=== PATIENT | male | born 1945 ===

== ENCOUNTER 2024-06-26 20:04 | Outpatient (BNV) | payer MEDICARE, OTHER, SELFPAY | END 2024-07-03 09:20 | PROVIDERS: Admitting Provider Psychiatry & Neurology Psychiatry; PCP Internal Medicine Geriatric Medicine; Visit Provider Radiology Diagnostic Radiology | DX: R07.81 Pleurodynia (principal) | CPT/HCPCS: 71100 ==

== ENCOUNTER 2024-06-26 20:04 | Inpatient (IN) | payer MEDICARE, OTHER, SELFPAY ==
--- NOTE | ~2024-06-26 | XR_ITS ---
EXAMINATION: XR RIBS 2 VIEWS LEFT HISTORY: ? rib pain L side COMPARISON: There are no prior studies for comparison. FINDINGS: Three views of the left ribs are submitted. Osseous mineralization is normal. No fracture is identified. XR/XR ribs LT 2V IMPRESSION: No evidence of fracture of the left ribs. Electronically signed by: Dionicio Pacheco MD 07/03/2024 10:25 AM EDT
--- NOTE | ~2024-06-26 | XR_ITS ---
CLINICAL HISTORY: LUQ pain Single view of the abdomen. COMPARISON: None FINDINGS: Normal bowel distention. Pelvic phleboliths present. No pneumoperitoneum identified. Gpshmrbg-lx-ebjat colonic stool burden within the transverse and descending colon. Marked apex right angulation of the upper lumbar spine with grade 2/3 rightward subluxation and marked compression of the L2 vertebral body. No acute fracture identified. Abdominal mesh wall clips present. IMPRESSION: 1. Nonspecific nonobstructive bowel gas pattern. 2. Yilcjplb-mx-pdmxl amount of stool present within the transverse and descending colon. 3. Marked apex right angulation of the upper lumbar spine with chronic appearing compression fracture of the L2 vertebral body. Recommend comparison with prior imaging and clinical history. This document has been electronically signed by: Cl Tomlin MD on 06/27/2024 16:08:22
--- NOTE | ~2024-06-26 | XR_ITS ---
EXAMINATION: XR SHOULDER 2 OR MORE VIEWS LEFT HISTORY: c/o l shoulder pain COMPARISON: There are no prior studies available for comparison. FINDINGS: Four views of the left shoulder are submitted. The bones are osteopenic. There is no fracture or dislocation. There is severe osteoarthritis of the glenohumeral joint with joint space narrowing. The humeral head is high riding suggestive of rotator cuff arthropathy. The AC joint is maintained. The soft tissues are unremarkable. XR/XR shoulder LT min 2V IMPRESSION: Osteopenia. Severe osteoarthritis of the glenohumeral joint with findings suggestive of rotator cuff arthropathy. Electronically signed by: Dionicio Pacheco MD 07/03/2024 11:23 AM EDT
--- OUTSIDE RECORDS SUMMARY | 2024-06-26 20:12 | XMS_ITS | Encounter Summary ---
Author Organization [facility] Address [address] [place] [address] Care Team Providers Care Data Analyst Etl Developer Name Role Phone Oziel Carrington MD Primary Care Provider [phone] Reason for Visit * Reason Comments Psychiatric Evaluation * Auth/Cert (Routine) Specialty Diagnoses / Procedures Referred By Wesley nunez Referred To Contact Diagnoses ++ Procedures ADMIT TO OBSERVATION Referral ID Status Reason Start Date Expiration Date Visits Re quested Visits Authorized [id number] 1 1 Encounter Details Date Type Department Care Team (Late st Contact Info) Description 06/24/2024 10:53 PM EDT - 06/26/2024 6:28 PM EDT Emergency [facility] [address] [place] [phone] Sakina Horne DO [address] [place] [id number] Marco Dunham MD [address] [place] [id number] Shai Pearce MD [address] [place] [id number] Jermaine Goodwin MD [address] [place] [phone] [place] [address] Kylie Johnston MD [address] [place] [address] Discharge Disposition: Another Health Care Institution Not Defined Social History Tobacco Use Types Packs/Day Years Used Date Smoking Tobacco: Never Passive Smoke Exposure: Never Smokeless Tobacco: Never Alcohol Use Standard Drinks/Week Comments Never 0 (1 standard drink = 0.6 oz pur e alcohol) [facility] Utilities Answer Date Recorded In the past 12 months has th e electric, gas, oil, or water company threatened to shut off services in your home? No 04/13/2024 Humiliation, Afraid, Rape, and Kick questionnair e Answer Date Recorded Within the last year, have y ou been afraid of your partner or ex-partner? No 04/13/2024 Emotionally Abused Not on file 04/13/2024 Physically Abused Not on file 04/13/2024 Sexually Abused Not on file 04/13/2024 Overall Financial Resource Strain (CARDIA) Answe r Date Recorded How hard is it for you to pa y for the very basics like food, housing, medical care, and heating? Not hard at all 04/13/2024 Hunger Vital Sign Answer Date Recorded Within the past 12 months, y ou worried that your food would run out before you got the money to buy more. Never true 04/13/20 24 Ran Out of Food in the Last Year Not on file 04/13/2024 PRAPARE - Transportation Answer Date Re corded In the past 12 months, has l ack of transportation kept you from medical appointments or from getting medications? No 03/17 In the past 12 months, has l ack of transportation kept you from meetings, work, or from getting things needed for daily living? No 04/13/2024 Housing Stability Vital Sign Answer Chandana e Recorded In the last 12 months, was t here a time when you were not able to pay the mortgage or rent on time? No 04/13/2024 Number of Times Moved in the Last Year Not on fi le 04/13/2024 Homeless in the Last Year Not on file 2023 Depression Answer Date Recorded Feeling Down, Depressed, or Hopeless 1 03/06/2024 PHQ-9 Total Score 5 03/06/2024 [place] Scale Score: Not on file Sex and Gender Information Value Date Recorded Sex Assigned at Male 07/18/2021 5:48 PM EDT Legal Sex Male 3:32 PM EST Gender Identity Male 07/18/2021 5:48 PM EDT Sexual Orientation Straight 05/21/2024 7: 28 AM EST Occupation Industry Job Start Date Job End Date Working part-time Not on file Not on file Not on jocy e documented as of this encounter Last Filed Vital Signs Vital Sign Reading Time Taken Comments Blood Pressure 111/58 06/26/2024 1:00 PM EDT Pulse 52 06/26/2024 1:00 PM EDT Temperature 36.7 ??C (98 ??F) 06/26/2024 12:42 PM EDT Respiratory Rate 17 06/26/2024 1:00 PM EDT Oxygen Saturation 96% 06/26/2024 1:00 PM EDT Inhaled Oxygen Concentration - - Weight - - Height - - Body Mass Index - - documented in this encounter Functional Status * Because of a physical, mental, or emotional condition, does this person have difficulty doing errands alone such as visiting a doctor's office or shopping? Answer Date of Assessment Author No 02/20/2024 2:41 PM EST documented as of this encounter Medications at Time of Discharge acetaminophen (TYLENOL) 500 mg tablet Take 2 tablets (1,000 mg total) by mouth 3 (three) times a day. 180 tablet 06/11/2024 baclofen 5 mg tablet Take 5 mg by mouth 3 (three) times a day. 90 tablet 06/11/2024 clonazePAM (KlonoPIN) 1 mg tablet Take 1 tablet at bedtime. May have additional half tablet if unable to fall asleep. 45 tablet 06/11/2024 diclofenac sodium (Voltaren) 1 % gel Apply 4 g topically 4 (four) times a day as needed (left shoulder pain). 50 g 06/11/2024 5 lidocaine (LIDODERM) 4 % patch Apply 1 patch topically daily as needed for mild pain (1-3) or moderate pain (4-6). Remove & discard patch within 12 hours or as directed by MD. 30 patch 06/11/2024 pantoprazole (PROTONIX) 40 mg EC tablet Take 1 tablet (40 mg total) by mouth daily. 30 tablet 06/11/2024 5 QUEtiapine (SEROquel) 300 mg tablet Take 1 tablet (300 mg total) by mouth nightly. 30 tablet 06/11/2024 QUEtiapine (SEROquel) 50 mg tablet Take 1 tablet qam. May take half tablet up to 3 times per day as needed for intrusive thoughts 60 tablet 06/11/2024 senna (SENOKOT) 8.6 mg tablet Take 2 tablets (17.2 mg total) by mouth nightly. Hold if > 1 BM/day 60 tablet 06/11/2024 sodium chloride 1,000 mg tablet Take 1 tablet (1 g total) by mouth 3 (three) times a day with meals. 90 tablet 06/11/2024 5 tranylcypromine (PARNATE) 10 mg tablet Take 3 tablets (30 mg total) by mouth 3 (three) times a day. 270 tablet 06/11/2024 5 documented as of this encounter Progress Notes * Nikia Chi - 06/26/2024 3:38 PM EDT Patient: Cody Funez Accepting Facility: [place] Accepting Facility Address: [address] [place] [address] Accepting MD: Dr Dick Melgoza Arrival Time: JULIAN Nurse to Nurse Report: they are calling over for N2N Other Labs or Needs: N/A HCP/Guardian (if applicable): N/A Reason for Section 12: SI Information Given To: Via secure chat * Adiel Whittaker - 06/26/2024 8:44 AM EDT Patient referral has been uploaded to [facility] * Tara Beckham - 06/25/2024 1:45 PM EDT Clinician filled out and faxed pt.'s inpatient boarding notification form for [facility] * Adiel Whittaker - 06/25/2024 12:42 PM EDT Patient has been faxed to the following facilities for review today[facility] * Jen Mitchell - 06/25/2024 12:04 PM EDT Behavioral Health Crisis Consult - Follow Up Patient: Cody Funez : 1945 Admit Date: 06/24/2024 Date of Consult: 06/25/2024 Time of Consult: 12:04 PM CC: Chief Complaint Patient presents with Psychiatric Evaluation Chart Reviewed, case discussed with team and staff. Patient reports feeling mentally numb today. Updates: Psych consult outcome/psych medications: n/a Medical/Psychiatric/Substance/Social/Family History: Histories from previous consult note of 06/24 remain unchanged, except as note in HPI. Current Medications: baclofen (LIORESAL) tablet 5 mg, 5 mg, oral, TID clonazePAM (KlonoPIN) tablet 1 mg, 1 mg, oral, Nightly NON FORMULARY, , oral, TID pantoprazole (PROTONIX) EC tablet 40 mg, 40 mg, oral, Every morning before breakfast QUEtiapine (SEROquel) tablet 300 mg, 300 mg, oral, Nightly QUEtiapine (SEROquel) tablet 50 mg, 50 mg, oral, q AM Current PRN: acetaminophen (TYLENOL) tablet 975 mg diclofenac sodium (Voltaren) 1 % gel 4 g Allergies: Tyramine, Gabapentin, and Tyramine hcl Physical Exam: Patient Vitals for the past 24 hrs: BP Temp Temp src Pulse Resp SpO2 06/25/24 1136 -- -- -- (!) 47 16 95 % 06/25/24 0918 132/69 36.6 ??C (97.9 ??F) Temporal (!) 50 16 95 % 06/25/24 0630 121/72 -- -- (!) 41 (!) 14 95 % 06/25/24 0530 (!) 148/80 -- -- (!) 42 16 97 % 06/25/24 0500 (!) 146/69 -- -- (!) 40 (!) 12 97 % 06/25/24 0430 138/69 -- -- (!) 40 (!) 13 98 % 06/25/24 0330 128/62 -- -- (!) 45 (!) 12 98 % 06/25/24 0300 117/68 -- -- (!) 44 (!) 13 97 % 06/25/24 0230 136/67 -- -- (!) 44 (!) 12 97 % 06/25/24 0200 (!) 161/80 -- -- (!) 47 20 99 % 06/25/24 0000 120/69 -- -- (!) 51 (!) 14 98 % 06/24/24 2330 114/74 -- -- (!) 50 (!) 10 97 % 06/24/24 2246 94/56 36.3 ??C (97.3 ??F) Temporal 65 16 94 % Mental Status Exam: Appearance: stated age and disheveled Behavior: cooperative and calm Speech: regular rate, regular rhythm, and regular volume Language: intact Mood: depressed Affect: flat Thought Process: organized and goal-directed Thought Content: suicidal ideation Hallucinations: absent Attention: intact Concentration: intact Orientation: time, date, person, place, city, president Memory: intact Fund of Knowledge: intact Insight: intact Judgment: impaired Labs, Imaging & Other Studies: Laboratory: Recent lab results have been reviewed and are notable for Results for orders placed or performed during the hospital encounter of 06/24/24 CBC auto differential Result Value Ref Range WBC 3.13 (L) 4.00 to 11.00 x 10*3u/L 10*3/uL nRBC 0 0 - 0 /100 WBCs RBC 3.16 (L) 4.30 to 5.80 x 10*6/uL 10*6/uL HGB 10.1 (L) 13.5 to 17.5 g/dL g/dL HCT 32.2 (L) 41.0% to 53.0% % MCV 101.9 (H) 80.0 to 94.0 fL fL MCH 32.0 26.0 - 33.0 pg MCHC 31.4 31.0 to 37.0 g/dL g/dL PLT 147 (L) 150 to 400 x 10*3u/l 10*3u/L RDW-CV 12.9 11.5 - 14.5 % Segmented % 57.6 30.0 - 85.0 % ABS Neutrophil 1.80 1.20 - 9.30 10*3/uL Lymphocytes % 18.2 15.0 - 50.0 % ABS Lymphocyte 0.57 (L) 0.60 - 5.50 10*3u/L Monocytes % 19.8 (H) 2.0 - 12.0 % ABS Monocytes 0.62 0.08 to 1.30 x 10*3u/L 10*3/uL Eosinophils % 3.5 0.0 - 5.0 % ABS Eosinophils 0.11 0.00 to 0.68 x 10*3u/L 10*3/uL Basophil % 0.6 0.0 - 2.0 % ABS Basophils 0.02 0.00 - 0.20 10*3/uL IMM GRAN 0.3 0.0 - 1.0 % ABS IMM GRAN 0.01 0.00 - 0.10 10*3/uL Comprehensive metabolic panel Result Value Ref Range Sodium 142 137 - 145 mmol/L Potassium 5.1 3.5 - 5.1 mmol/L CHLORIDE 109 (H) 98.00 - 107.00 mmol/L CARBON DIOXIDE, TOTAL 28.0 22.0 - 30.0 mmol/L ANION GAP 5.0 (L) 6 - 14 GLUCOSE 122 (H) 70 - 99 mg/dL CALCIUM 8.7 8.3 - 10.3 mg/dL CREATININE 1.3 0.7 - 1.3 mg/dL ALBUMIN 3.6 3.5 - 5.0 g/dL Bilirubin Total 0.4 0.2 - 1.3 mg/dL BILIRUBIN DIRECT 0.2 0.0 - 0.4 mg/dL ALKALINE PHOSPHATASE 82 38 - 126 U/L AST (SGOT) 40 15 - 46 U/L ALT 24 <50 U/L Protein, Total 5.9 (L) 6.3 - 8.2 g/dL BUN 51 (H) 9 - 20 mg/dL eGFRcr 56 URINALYSIS WITH MICROSCOPIC WITH REFLEX TO URINE CULTURE Result Value Ref Range Color Light Yellow TURBIDITY Clear Clear SG 1.026 1.002 - 1.030 pH, Urine 5.5 5.0 - 8.0 Albumin Negative Negative Glucose Negative Negative Ketones Negative Negative Bile Negative Negative Blood Negative Negative WBC esterase Negative Negative Nitrite Negative Negative WBC 0-5 0 - 5 /HPF RBC 0-2 0 - 5 /HPF EPITH CELLS 0-5 0 - 5 /HPF WBC Clumps None Seen None Seen /HPF Mucous 1+ (A) None Seen /LPF URINE SEDIMENTATION REQUIRED? Yes Toxicology screen, serum Result Value Ref Range Ethanol Lvl <10 mg/dL Salicylate Lvl <1 <=35 mg/dL ACETAMINOPHEN 19 <=30.0 ug/mL Toxicology screen, urine Result Value Ref Range Amphetamine Screen, Ur Negative Negative Cocaine Screen, Ur Negative Negative Opiate, Ur Negative Negative Barbiturate Screen, Ur Negative Negative Benzodiazepines Screen, Ur Negative Negative Methadone Screen, Ur Negative Negative Cannabinoid Screen Ur Negative Negative PCP Screen, Ur Negative Negative Oxycodone Screen, Ur Negative Negative Ecstasy Screen Ur Negative Negative Fentanyl Screen, Ur Negative Negative Magnesium Result Value Ref Range Magnesium Blood 2.2 1.6 - 2.3 mg/dL Phosphorus Result Value Ref Range PHOSPHATE 3.2 2.5 - 4.5 mg/dL Troponin I Result Value Ref Range Troponin I <0.012 <0.034 ng/mL ng/mL *Note: Due to a large number of results and/or encounters for the requested time period, some results have not been displayed. A complete set of results can be found in Results Review. EKG: No studies were reviewed. C-SSRS Daily Screener 2) Current Suicidal Thoughts: Yes 3) Have you been thinking about how you might do this?: Yes 4) Have you had these thoughts and had some intention of acting on them?: Yes 5) Have you started to work out OR worked out the details of how to kill yourself? Do you intend tocarry out this plan?: No 6a.) Have you ever done anything, started to do anything, or prepared to do anything to end your life?: Yes 6b.) If 'Yes', was it within the past 3 months?: No C-SSRS Risk Level: High Discharge Screener 1) Wish to be : Yes 2) Current Suicidal Thoughts:: Yes 3) Have you been thinking about how you might do this?: Yes 4) Have you had these thoughts and had some intention of acting on them?: Yes 5) Have you started to work out OR worked out the details of how to kill yourself? Do you intend tocarry out this plan?: No 6a.) While you were in the hospital, have you done anything, started to do anything, or prepared todo anything to end your life?: No C-SSRS Risk Level: High Assessment: Patient is a 78 y.o. male with past medical and psychiatric history as above. During eval, the patient presented as AOx4, cooperative, and depressed. His speech was WNL, goal-directed, and organized.His affect was flat. He endorsed SI with the plan to hang himself with a belt. The patient stated his belief that a higher power wants him to end his life due to choices he made in a past life. He denied HI. When asked about psychosis, he stated that he is experiencing thoughts rather than voices . He presented as help-seeking and advocating for admission to [facility] or [facility]. This senior grant writer let him know that the bed search is based on availability. This senior grant writer also discussed the patient's willingness to transition to an assisted living facility, as he seems to present better in environments with more people. He stated that he is interested in making this shift, but has avoided it in the past due to concerns about the financial burden of [facility]. He is open to discussing this topic with providers. Recommendations: This patient continues to meet Section 12 criteria due to his reported SI with a plan. He will remain boarding in the emergency department while awaiting psychiatric placement. Requested LOC: Barriers to placement/Specialty Placement Required: nikolai-psych Disposition Recommendation: Inpatient Level of Care Behavioral Health Diagnosis: F25 Schizoaffective Disorder Duration: Time Spent (min): 45 Case d/w: Shai Pearce MD Signed by: Jen Mitchell MA * Braxton Gomez [facility] - 06/25/2024 1:13 AM EDT Behavioral Health Crisis Consult - Initial Assessment Patient: Cody Funez : 1945 Admit Date: 06/24/2024 Date of Consult: 06/25/2024 Time of Consult: 1:13 AM Consult Requested by: Marco Dunham MD Reason for Consult: Chief Complaint Patient presents with Psychiatric Evaluation History of Present Illness: Patient is a 78 y.o. male with past medical and psychiatric history as listed who presented to the hospital on 06/24/2024, for Psychiatric Evaluation. Behavioral Health is consulted for SI. Medical History: has a past medical history of Adult failure to thrive (12/14/2020), Basal cell carcinoma, Calcium oxalate kidney stones (03/22/2022), Closed fracture of multiple ribs of right side with routine healing (06/17/2019), Closed fracture of occipital bone ([facility]/HCC) (02/02/2021), COVID-19 (07/03/2022), Elevated lipase (07/18/2023), Gastrointestinal hemorrhage with melena (12/14/2023), Hematoma (07/08/2020), Hypercapnic respiratory failure (CMS/HCC) (05/20/2022), Hypotension due to hypovolemia (05/29/2022), Hypothermia (05/29/2022), Inguinal hernia without obstruction or gangrene (01/14/2023), Intestinal infection due to Clostridium difficile (01/07/2007), Meningioma ([facility]), Multiple falls (05/04/2020), 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 has a past surgical history that includes Hernia repair and facet injection / mbb injection - lumbar/sacral 1st level (Left, 10/25/2022). Psychiatric History: Patient is a 78 year old male who was transported to [facility] ED by a friend. He lives alone and has a past psychiatric history of schizoaffective disorder. His friend brought him in. He had recently beendischarged from an inpatient unit at the end of May 2024. Patients friend was at dinner and hestarted to endorse intrusive thoughts of wanting to harm himself and others. Patient requested to be brought back to the hospital. His friend reported patient has not been sleeping well at night. HisBAL was 0. His tox screen is pending. He has been medically cleared by the attending physician. Prior to meeting with patient, I reviewed his electronic medical records. He had an admission to [facility] on 04/30/24 and discharged on 06/11/24. He had been there was well in February of 2024. During themost recent admission he reported that he was having numerous negative thoughts that were intrusive and terrifying because he was in a past life in [place] and had the opportunity to save people and did not . He then has thoughts that turn into voices telling him to kill himself or end up killing other people. He reported chronic AH and SI at baseline and his symptoms become exacerbated by physical pain. He did have a period of unresponsiveness, hypotension, and hypoxemia which was attributed to the doses of his psychiatric medications. He is followed by Dr. Rai Cm for Psychiatry at [facility]. He has a therapist named Jake Armijo. He has had inpatient admissions to [place] [address] in 2011, 2020, February 2024, and May 2024. He had a remote suicide attempt decades ago when he cut his toe with a razor blade but knew it would not cause any significant damage. He was started on Abilify during last admission but it caused insomnia. He then was re-staretd on Quetiapine which caused some confusion but his symptoms improved with a more gradual titration. I met with patient via video conference. He was able to confirm his identity by stating his name and . However, he only minimally participated in the evaluation. He was lethargic and at times would fall asleep. I would call his name and he would briefly wake up to answer a question and then fallasleep. When he did appear awake and respond his responses were not spontanious. He was able to sayhe has been having thoughts of killing himself. He has been having these thoughts off and on. He thinks about hanging himself. He then fell back asleep and was not able to fully engage I called patients [facility] Braxton [phone]. He reported that he believed patient was doing well since his discharge from [facility]. However, his apartment is not the cleanest lately. He stated that he went over to patients house to have dinner. He seemed ok. Around 9pm he was getting ready to leave andpatient said I don't know what I am going to do . He stated that he asked patient to elaborate andhe stated that he was having thoughts of killing himself. Patient had encouraged him to take his evening medications. Patient was hesitant to do so but ultimately agreed. He then stated he preferred to go to the hospital. He stated that when they arrived he dropped him off and was going to park. Hestated that patient was walking to the ED and almost stopped and fell asleep standing up. They got him into the hospital and initially he was able to be aroused but still lethargic. Patient did have COVID while he was hospitalized last time. I did tell Braxton that I observed patient to cough a fewtimes when I was attempting to meet with him. He shared that patient also had a fall recently. He reports he is not sure if he has been taking his medications consistently or not. He noted that patient has presented as confused lately regarding his medications. He states that over the weekend he helped him prepare his meds in a pill box. It seemed like he has been taking his meds this week. Before that he was not sure if he was taking more then he should have or less because he seemed confused. I did review the case with the attending physician. Patients heart rate is in the 40's but has normal blood pressures. They are going to continue to monitor him medically in the ED. Home Medications: (Not in a hospital admission) Current Medications: baclofen (LIORESAL) tablet 5 mg, 5 mg, oral, TID clonazePAM (KlonoPIN) tablet 1 mg, 1 mg, oral, Nightly NON FORMULARY, , oral, TID pantoprazole (PROTONIX) EC tablet 40 mg, 40 mg, oral, Every morning before breakfast QUEtiapine (SEROquel) tablet 300 mg, 300 mg, oral, Nightly QUEtiapine (SEROquel) tablet 50 mg, 50 mg, oral, q AM Current PRN: acetaminophen (TYLENOL) tablet 975 mg diclofenac sodium (Voltaren) 1 % gel 4 g Allergies: Tyramine, Gabapentin, and Tyramine hcl Substance Use History: Substance and Sexual Activity Alcohol Use Never Social History Substance and Sexual Activity Drug Use Never Tobacco: reports that he has never smoked. He has never been exposed to tobacco smoke. He has never used smokeless tobacco. Other: reports no history of drug use. Prescription Medications: Seroquel Substances: Unable to fully assess. There was nothing I could see in his record that noted he has a significantsubstance abuse history. Social History: unable to fully assess. He does live by himself. Social History Socioeconomic History Marital status: Single Number of children: 0 Years of education: College graduate Occupational History Occupation: Working part-time , , History: Personal History: reports that he is not currently sexually active. Family History: Family History Problem Relation Name Age of Onset Heart disease Mother Breast cancer Mother Depression Mother Heart disease Father Prostate cancer Father Stroke Father Hypertension Father Intellectual Disability Other sibling Physical Exam: Patient Vitals for the past 24 hrs: BP Temp Temp src Pulse Resp SpO2 06/25/24 0000 120/69 -- -- (!) 51 (!) 14 98 % 06/24/24 2330 114/74 -- -- (!) 50 (!) 10 97 % 06/24/24 2246 94/56 36.3 ??C (97.3 ??F) Temporal 65 16 94 % Mental Status Exam: Appearance: stated age and unkempt Behavior: lethargic Speech: soft, mumbled at times. Difficult to understand at times. Language: fluent Mood: depressed Affect: blunted Thought Process: unable to fully assess Thought Content: suicidal ideation Hallucinations: unable to fully assess Attention: difficulty staying awake Concentration: impaired Orientation: unable to fully assess Memory: unable to fully assess Fund of Knowledge: unable to fully assess Insight: unable to fully assess Judgment: unable to fully assess Labs, Imaging & Other Studies: Laboratory: Recent lab results have been reviewed Results for orders placed or performed during the hospital encounter of 06/24/24 CBC auto differential Result Value Ref Range WBC 3.13 (L) 4.00 to 11.00 x 10*3u/L 10*3/uL nRBC 0 0 - 0 /100 WBCs RBC 3.16 (L) 4.30 to 5.80 x 10*6/uL 10*6/uL HGB 10.1 (L) 13.5 to 17.5 g/dL g/dL HCT 32.2 (L) 41.0% to 53.0% % MCV 101.9 (H) 80.0 to 94.0 fL fL MCH 32.0 26.0 - 33.0 pg MCHC 31.4 31.0 to 37.0 g/dL g/dL PLT 147 (L) 150 to 400 x 10*3u/l 10*3u/L RDW-CV 12.9 11.5 - 14.5 % Segmented % 57.6 30.0 - 85.0 % ABS Neutrophil 1.80 1.20 - 9.30 10*3/uL Lymphocytes % 18.2 15.0 - 50.0 % ABS Lymphocyte 0.57 (L) 0.60 - 5.50 10*3u/L Monocytes % 19.8 (H) 2.0 - 12.0 % ABS Monocytes 0.62 0.08 to 1.30 x 10*3u/L 10*3/uL Eosinophils % 3.5 0.0 - 5.0 % ABS Eosinophils 0.11 0.00 to 0.68 x 10*3u/L 10*3/uL Basophil % 0.6 0.0 - 2.0 % ABS Basophils 0.02 0.00 - 0.20 10*3/uL IMM GRAN 0.3 0.0 - 1.0 % ABS IMM GRAN 0.01 0.00 - 0.10 10*3/uL Comprehensive metabolic panel Result Value Ref Range Sodium 142 137 - 145 mmol/L Potassium 5.1 3.5 - 5.1 mmol/L CHLORIDE 109 (H) 98.00 - 107.00 mmol/L CARBON DIOXIDE, TOTAL 28.0 22.0 - 30.0 mmol/L ANION GAP 5.0 (L) 6 - 14 GLUCOSE 122 (H) 70 - 99 mg/dL CALCIUM 8.7 8.3 - 10.3 mg/dL CREATININE 1.3 0.7 - 1.3 mg/dL ALBUMIN 3.6 3.5 - 5.0 g/dL Bilirubin Total 0.4 0.2 - 1.3 mg/dL BILIRUBIN DIRECT 0.2 0.0 - 0.4 mg/dL ALKALINE PHOSPHATASE 82 38 - 126 U/L AST (SGOT) 40 15 - 46 U/L ALT 24 <50 U/L Protein, Total 5.9 (L) 6.3 - 8.2 g/dL BUN 51 (H) 9 - 20 mg/dL eGFRcr 56 Toxicology screen, serum Result Value Ref Range Ethanol Lvl <10 mg/dL Salicylate Lvl <1 <=35 mg/dL ACETAMINOPHEN 19 <=30.0 ug/mL Magnesium Result Value Ref Range Magnesium Blood 2.2 1.6 - 2.3 mg/dL Phosphorus Result Value Ref Range PHOSPHATE 3.2 2.5 - 4.5 mg/dL Troponin I Result Value Ref Range Troponin I <0.012 <0.034 ng/mL ng/mL *Note: Due to a large number of results and/or encounters for the requested time period, some results have not been displayed. A complete set of results can be found in Results Review. CSSR: Unable to fully assess/complete due to patients mental status. Assessment: Patient is a 78 y.o. male who was transported to [facility] ED from home by his friend. Patient had endorsed suicidal ideation to his friend and agreed to come to the ED. Patient has a long history of psychiatric illness. He had a recent inpatient admission to [facility] after he endorsed nightmares, suicidal ideation, and command AH/thoughts telling him to kill himself or other people. Specifically he noted that in another life he was living in [place] and felt bad he didn't intervene when people were killed. Upon assessment today, he was very lethargic and difficult to interview. He would not stay away. He did say he was having thoughts of killing himself by hanging. I talked to his friend who was with him this evening. He thought patient was doing well, but when he went to leave patient stated he didn't know what I was going to do . When patients friend clarified, patient endorsed not feeling safe with himself and agreed to come to the ED. Upon arrival he had an episode where he became extremely lethargic and difficult to arouse. At the time of the assessment his heart rate was in the 40's but had normal blood pressures. The attending plans to continue to monitor him medically. I shared with the attending that patient also had a fall as well. Patient is prescribed Seroquel and had an unresponsive episode on [facility] back in May. The notes attributed this to his medications. It is unclear if patient has been taking his medications as prescribed. His friend reported that he was worried at times he was taking too much and/or not taking enough. Patient has presented as confused. Given the fact patient continues to endorse SI with a plan, patient should be held on a section 12 and re-admitted to an inpatient unit for further assessment while he continues to be monitored medically. Recommendations: -patient meets section 12 criteria -patient cannot leave AMA -safety coordinator to remain in place. -continue to monitor medically. -[facility] is preferred for patient given he has been there before. Behavioral Health Diagnosis: Schizoaffective disorder by history Duration: 90 Discussed with Purchasing Clerk: No Discussed with Medical Team: Yes . Dr. Marco Dunham. Signed by: ANT Tapia documented in this encounter Consult Notes * Joss Yee MD - 06/25/2024 9:12 AM EDT ADMISSION HISTORY AND PHYSICAL Patient: Cody Funez 78 y.o. male : 1945 Date of admission: 06/24/2024 CHIEF COMPLAINT: bradycardia HISTORY OF PRESENT ILLNESS: The patient is a pleasant 78-year-old gentleman who I am asked to see for bradycardia. When I see him in the emergency department he is lying in bed denies any cardiac symptoms. He tells me he has had a low heart rate for as long as he could remember, it typically is in the 40s to 50s. He denies any cardiac symptoms of syncope or presyncope. ALLERGIES: Tyramine, Gabapentin, and Tyramine hcl MEDICATIONS: Current Facility-Administered Medications: acetaminophen (TYLENOL) tablet 975 mg, 975 mg, oral, TID PRN, Chontlindsey Lozanoine Degler, DO baclofen (LIORESAL) tablet 5 mg, 5 mg, oral, TID, Choheather Sosa Degler, DO clonazePAM (KlonoPIN) tablet 1 mg, 1 mg, oral, Nightly, Chontelle Sheila Degler, DO diclofenac sodium (Voltaren) 1 % gel 4 g, 4 g, Topical, 4x daily PRN, Chontlindsey Sheila Degler, DO NON FORMULARY, , oral, TID, Chontlindsey Sheila Degler, DO pantoprazole (PROTONIX) EC tablet 40 mg, 40 mg, oral, Every morning before breakfast, Sakina Horne DO, 40 mg at 06/25/24 0522 QUEtiapine (SEROquel) tablet 300 mg, 300 mg, oral, Nightly, Barakedwinlindsey Sheila Horne DO QUEtiapine (SEROquel) tablet 50 mg, 50 mg, oral, q AM, Sonilindsey Sheila Horne DO Current Outpatient Medications: acetaminophen (TYLENOL) 500 mg tablet, Take 2 tablets (1,000 mg total) by mouth 3 (three) times a day., Disp: 180 tablet, Rfl: 0 baclofen 5 mg tablet, Take 5 mg by mouth 3 (three) times a day., Disp: 90 tablet, Rfl: 0 clonazePAM (KlonoPIN) 1 mg tablet, Take 1 tablet at bedtime. May have additional half tablet if unable to fall asleep., Disp: 45 tablet, Rfl: 0 diclofenac sodium (Voltaren) 1 % gel, Apply 4 g topically 4 (four) times a day as needed (left shoulder pain)., Disp: 50 g, Rfl: 0 lidocaine (LIDODERM) 4 % patch, Apply 1 patch topically daily as needed for mild pain (1-3) or moderate pain (4-6). Remove & discard patch within 12 hours or as directed by MD., Disp: 30 patch, Rfl: 0 pantoprazole (PROTONIX) 40 mg EC tablet, Take 1 tablet (40 mg total) by mouth daily., Disp: 30 tablet, Rfl: 0 QUEtiapine (SEROquel) 300 mg tablet, Take 1 tablet (300 mg total) by mouth nightly., Disp: 30 tablet, Rfl: 0 QUEtiapine (SEROquel) 50 mg tablet, Take 1 tablet qam. May take half tablet up to 3 times per day as needed for intrusive thoughts, Disp: 60 tablet, Rfl: 0 senna (SENOKOT) 8.6 mg tablet, Take 2 tablets (17.2 mg total) by mouth nightly. Hold if > 1 BM/day, Disp: 60 tablet, Rfl: 0 sodium chloride 1,000 mg tablet, Take 1 tablet (1 g total) by mouth 3 (three) times a day with meals., Disp: 90 tablet, Rfl: 0 tranylcypromine (PARNATE) 10 mg tablet, Take 3 tablets (30 mg total) by mouth 3 (three) times a day., Disp: 270 tablet, Rfl: 0 PAST MEDICAL HISTORY: Patient has a past medical history of Adult failure to thrive (12/14/2020), Basal cell carcinoma, Calcium oxalate kidney stones (03/22/2022), Closed fracture of multiple ribs of right side with routine healing (06/17/2019), Closed fracture of occipital bone ([facility]/HCC) (02/02/2021), COVID-19 (07/03/2022), Elevated lipase (07/18/2023), Gastrointestinal hemorrhage with melena (12/14/2023), Hematoma (07/08/2020), Hypercapnic respiratory failure ([facility]/HCC) (05/20/2022), Hypotension due to hypovolemia (05/29/2022), Hypothermia (05/29/2022), Inguinal hernia without obstruction or gangrene (01/14/2023), Intestinal infection due to Clostridium difficile (01/07/2007), Meningioma ([facility]), Multiple falls (05/04/2020), 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 and has a past surgical history that includes Hernia repair and facet injection / mbb injection - lumbar/sacral 1st level (Left, 10/25/2022). FAMILY HISTORY: Negative for premature coronary disease. SOCIAL HISTORY: Patient reports that he has never smoked. He has never been exposed to tobacco smoke. He has never used smokeless tobacco. REVIEW OF SYSTEMS: Cardiovascular as above, all other systems negative. PHYSICAL EXAMINATION: Vitals: Last: BP 121/72 Pulse (!) 41 Temp 36.3 ??C (97.3 ??F) (Temporal) Resp (!) 14 SpO2 95% Past: Temp: [36.3 ??C (97.3 ??F)] 36.3 ??C (97.3 ??F) Heart Rate: [40-65] 41 Resp: [10-20] 14 BP: (94-161)/(56-80) 121/72 SpO2: [94 %-99 %] 95 % No intake/output data recorded. No intake/output data recorded. General: reasonably well-appearing, in no acute distress Skin: warm, dry Neck: no significant jugular venous distension Respiratory: chest clear to auscultation Cardiovascular: heart -bradycardic rate and regular rhythm, normal S1 and S2, with no murmur, no rub or gallop; normal carotid upstrokes without bruit; normal distal pulses; no peripheral edema Neurologic: alert and oriented Psychiatric: normal mood and affect IMAGING/LABORATORY VALUES: ECG: Sinus bradycardia with a normal OH, QRS, and QT interval Results from last 7 days Lab Units 06/24/24 2338 TROPONIN I ng/mL <0.012 Results from last 7 days Lab Units 06/24/24 2338 SODIUM mmol/L 142 POTASSIUM BLD mmol/L 5.1 CHLORIDE mmol/L 109* BICARBONATE mmol/L 28.0 BUN mg/dL 51* CREATININE BLOOD mg/dL 1.3 GLUCOSE mg/dL 122* CALCIUM mg/dL 8.7 Results from last 7 days Lab Units 06/24/24 2338 WBC 10*3/uL 3.13* NRBC AUTOMATED% /100 WBCs 0 RBCT 10*6/uL 3.16* HEMOGLOBIN g/dL 10.1* HEMATOCRIT % 32.2* MEAN CORPUSCULAR VOLUME (MCV) fL 101.9* MEAN CORPUSCULAR HEMOGLOBIN (MCH) pg 32.0 MEAN CORPUSCULAR HEMOGLOBIN CONCENTRATION (MCHC) g/dL 31.[address] 10*3u/L 147* RDW CBC % 12.9 ASSESSMENT AND RECOMMENDATIONS: 78-year-old gentleman who I am seeing in the ER for asymptomatic bradycardia. His EKG otherwise demonstrates normal intervals including a normal OH, QRS, and QT interval. He has profound bradycardia.This sounds like a longstanding issue for him, probably exacerbated by multiple psychiatric medications he is taking, at a minimum Seroquel, Parnate, clonazepam, baclofen can all contribute to bradycardia. Each of these medications should be reviewed in the context of their benefit to this specificpatient. I think the risk of asymptomatic sinus bradycardia in the 40s to 50s is low, but obviouslyany of these medications that is not specifically helping this gentleman and is contributing to bradycardia should be discontinued. He does not need further cardiovascular testing while in the emergency department. Joss Yee MD documented in this encounter ED Notes * Doreen Nelson RN - 06/26/2024 7:51 AM EDT Pt resting in bed comfortably watching t.v. Security notified to label remove belongings. Pt is calm and cooperative, able to communicate needs. Respirations even and unlabored, in no acute distress.1 to[address], pt in view at all times. Doreen Nelson RN 06/26/24 0755 * Swapnil Faith RN - 06/25/2024 8:02 PM EDT Pt on a phone. Talking to his family. Swapnil Faith RN 06/25/242001 * Vianca Powers RN - 06/25/2024 1:25 PM EDT Patient playing with his stuffed animal Hopey and Froggey . Patient singing and dancing. Vianca Powers RN 06/25/24 1327 * Anette Jean RN - 06/24/2024 10:41 PM EDT Pt presents from home by friend who brought him due to lethargy and weakness. He states this is a new state that he has seen from his friend. Pt also took his nightly meds and friend thought maybe this lethargy is from the medications. This weakness and lethargy is not why they initially present to the ED. Prior to the lethargy, friend states that the pt endorsed having intrusive thoughts at dinner. Pt stated to the friend that the nights are bad . Pt is only responsive in grunts and moans. He does verbally respond yes when asked if he has any thoughts of harming himself and endorses a plan but does not say anything further. * Sakina Horne, DO - 06/24/2024 10:27 PM EDT ED Observation Initial Note Reason for ED Observation: Behavioral Health Crisis See ED notes for initial evaluation and management. ED Observation Progress and Discharge Notes ED Course as of 06/26/24 1545 Wed Jun 24, 2024 2354 Indepedent interpretation of EKG reveals sinus bradycardia with PAC. Left axis deviation. Rateis 51 QTc 416. Low voltage. Incomplete right bundle branch block. Compared to April 17, 2024, patient now has low voltage. [CD] [facility] Jun 25, 2024 0107 Recent psych admit. Recurrent intrusive HI/SI. Sleepy after home Rx. Psych eval pending. Likely needs psych MD in am. [CD-2] 0207 Patient was noted by staff to have a heart rate in the high 30s. I evaluated the patient, his heart rate is in the low 40s but with stimulation when talking to him it is bouncing around to the low 50s. The patient says his heart rate runs slow , he thinks usually around 50. Reviewing earlier vital signs generally been running in the 40s to 50s. Discussed his recent medications, he does not think he took too much of any of his usual medications. The blood pressure is normal, he is lying down chronically ill-appearing but awake alert answering questions appropriately in no distress, he isupset about all the fuss with a new EKG being performed. [CD-2] 0209 Repeat EKG 0158: 40, sinus bradycardia, leftward axis, normal intervals, QTc 394 [CD-2] 0209 : [CD-2] 0252 Troponin I: <0.012 [CD-2] 0252 Magnesium: 2.2 [CD-2] 0252 Phosphorus: 3.2 [CD-2] 0252 Potassium: 5.1 [CD-2] 0634 Please continue to run in the 40s with normal blood pressure. [CD-2] 0639 Patient was evaluated by psychiatry, patient did endorse suicidal ideation. Psychiatry spoke with the patient's primary care and there was concern that the patient has not been consistent with taking his medications. Psychiatry does recommend attempting to admit him to the [facility] unit today. I think that is reasonable approach. Patient has a history of his blood pressure running low in the 50s, overnight he has been in the 40s with normal blood pressure and no symptoms. Electrolytes are unremarkable. Reviewing his medication list I do not see anything obvious in terms of a potential trigger for bradycardia. I do not think that this requires any emergent intervention and I think it wouldbe appropriate for him to be placed on [facility]. Psychiatry has concerns we could consider cardiology consultation while the patient is here in the department. [CD-2] 0653 Found lethargic - poor engagement, HR in 40s - initially in 60s, normal BP - states baseline HR 50s at rest - concern for med compliance - psych plan to admit [facility] - ? Cards consult [WP] 0748 Message to cardiology for bradycardia [WP] 1217 Psych continue to hold for nikolai-psych placement [WP] 1518 I have received sign-out on this patient at the beginning of my shift. PSYCH HOLD Awaiting placement, IPLOC. Bradycardia has been addressed by Dr. Yee. [TT] 2327 Assumed care at signout. Initially presented with suicidal ideation. On a section 12. In ED observation for inpatient bed search. [JS] SatJun 26, 2024 0634 I have received signout on this patient, who is currently admitted to ED observation for SI. Cody is currently awaiting [facility]. No issues reported at this time. [CD] 1123 Case d/w [facility]. They are hoping to have someone meet with him to discuss potential [facility] facilities or other assisted living. [CD] 1459 Emily requesting repeat CBC. Draw hemolyzed. Will draw again. [CD] 1531 Patient signed out to me at change of shift with psychiatric disposition pending. Section 12. [DW] 1544 Accepted to Emily by Dr. Melgoza [CD] ED Course User Index [CD] Sakina Horne DO [CD-2] Marco Dunham MD [DW] Kylie Johnston MD [JS] Bradley Raines MD [TT] Jermaine Goodwin MD [WP] Shai Pearce MD documented in this encounter Plan of Treatment Upcoming Encounters Date Type Department Care Team (Late st Contact Info) Description 06/16/2024 Procedure [facility] [address] [place] [phone] 07/07/2024 1:30 PM EDT Appointment [facility] [address] [place] [address] [phone] 09/16/2024 2:00 PM EDT Office Visit [facility] [address] [facility], [address] [place] [phone] Oziel Carrington MD [address] [place] [address] [place] [phone] 10/07/2024 2:30 PM EDT Office Visit [facility] [address] [facility] [address] room [address] [place] [phone] Felipe Bishop, CYNDY [address] [place] [address] 10/22/2024 11:00 AM EDT Appointment [facility] [address] [place] [phone] Jhon West MD [address] [place] [address] [place] [phone] 11/03/2024 3:00 PM EDT Office Visit [facility] [address] [place] [address], [address] [place] [address] John West MD [address] [place] [phone] documented as of this encounter Procedures Procedure Name Priority Date/Time Associated Diagnosis Comments CBC WITH AUTO DIFFERENTIAL Routine 06/26/2024 3:01 PM EDT URINALYSIS WITH MICROSCOPIC WITH REFLEX TO URINE CULTURE STAT 06/25/2024 5:37 AM EDT TOXICOLOGY SCREEN, URINE (IN HOUSE) STAT 06/25/2024 5:[address] HEAD WO CONTRAST STAT 06/25/2024 1 2:15 AM EDT EKG STAT 06/24/2024 11:48 PM EDT GOLD TOP STAT 06/24/2024 11:38 PM EDT GOLD TOP STAT 06/24/2024 11:38 PM EDT CBC WITH AUTO DIFFERENTIAL STAT 06/24/2024 11:38 PM EDT RED TOP STAT 06/24/2024 11:38 PM EDT LIGHT BLUE TOP STAT 06/24/2024 11:38 PM EDT RAINBOW DRAW STAT 06/24/2024 11:38 PM EDT TROPONIN I STAT 06/24/2024 11:38 PM EDT DRUG SCREEN SERUM, LIMITED STAT 06/24/2024 11:38 PM EDT PHOSPHORUS STAT 06/24/2024 11:38 PM EDT MAGNESIUM STAT 06/24/2024 11:38 PM EDT COMPREHENSIVE METABOLIC PANEL STAT 06/24/2024 11:38 PM EDT XR CHEST PORTABLE 1 VW STAT 11:29 PM EDT documented in this encounter Results * (ABNORMAL) CBC auto differential (06/26/2024 3:01 PM EDT) WBC 3.51(L) 4.00 to 11.00 x 10*3u/L 10*3/uL 06/26/2024 3:09 PM EDT [facility] nRBC 0 0 - 0 /100 WBCs 06/26/2024 3:09 PM [facility] RBC 3.27(L) 4.30 to 5.80 x 10*6/uL 10*6/uL 06/26/2024 3:09 PM [facility] HGB 10.4(L) 13.5 to 17.5 g/dL g/dL 06/26/2024 3:09 PM [facility] HCT 32.6(L) 41.0% to 53.0% % 06/26/2024 3:09 PM [facility] MCV 99.7(H) 80.0 to 94.0 fL fL 06/26/2024 3:09 PM [facility] MCH 31.8 26.0 - 33.0 pg 06/26/2024 3:09 PM [facility] MCHC 31.9 31.0 to 37.0 g/dL g/dL 06/26/2024 3:09 PM [facility] PLT 128(L) 150 to 400 x 10*3u/l 10*3u/L 06/26/2024 3:09 PM [facility] RDW-CV 12.9 11.5 - 14.5 % 06/26/2024 3:09 PM [facility] Segmented % 55.8 30.0 - 85.0 % 06/26/2024 3:09 PM [facility] ABS Neutrophil 1.96 1.20 - 9.30 10*3/uL 06/26/2024 3:09 PM [facility] Lymphocytes % 19.4 15.0 - 50.0 % 06/26/2024 3:09 PM [facility] ABS Lymphocyte 0.68 0.60 - 5.50 10*3u/L 06/26/2024 3:09 PM [facility] Monocytes % 19.9(H) 2.0 - 12.0 % 06/26/2024 3:09 PM [facility] ABS Monocytes 0.70 0.08 to 1.30 x 10*3u/L 10*3/uL 06/26/2024 3:09 PM EDT [facility] Eosinophils % 4.3 0.0 - 5.0 % 06/26/2024 3:09 PM EDT [facility] ABS Eosinophils 0.15 0.00 to 0.68 x 10*3u/L 10*3/uL 06/26/2024 3:09 PM EDT [facility] Basophil % 0.3 0.0 - 2.0 % 06/26/2024 3:09 PM EDT [facility] ABS Basophils 0.01 0.00 - 0.20 10*3/uL 06/26/2024 3:09 PM EDT [facility] IMM GRAN 0.3 0.0 - 1.0 % 06/26/2024 3:09 PM EDT [facility] ABS IMM GRAN 0.01 0.00 - 0.10 10*3/uL 06/26/2024 3:09 PM EDT [facility] Blood Venous blood / Unknown Venipuncture / Unknown 06/26/2024 3:01 PM EDT 06/26/2024 3:03 PM EDT us Sakina Horne DO LAB BLOOD ORDERABLES Final Result Performing Organization Address City/State/[facility] Co de Phone Number [facility] [address] [place] [address], * Toxicology screen, urine (06/25/2024 5:37 AM EDT) Amphetamine Screen, Ur Negative Negative 06/25/2024 6:43 AM EDT [facility] Cocaine Screen, Ur Negative Negative 2024 6:43 AM EDT [facility] Opiate, Ur Negative Negative 06/25/2024 6:43 AM EDT [facility] Barbiturate Screen, Ur Negative Negative 06/25/2024 6:43 AM EDT [facility] Benzodiazepines Screen, Ur Negative Negative 06/25/2024 6:43 AM EDT [facility] Methadone Screen, Ur Negative Negative 06/25/2024 6:43 AM EDT [facility] Cannabinoid Screen Ur Negative Negative 06/25/2024 6:43 AM EDT [facility] PCP Screen, Ur Negative Negative 06/25/2024 6:43 AM EDT [facility] Oxycodone Screen, Ur Negative Negative 06/25/2024 6:43 AM EDT [facility] Ecstasy Screen Ur Negative Negative 025 6:43 AM EDT [facility] Fentanyl Screen, Ur Negative Negative 06/25 6:43 AM EDT [facility] Urine Urine specimen collection, clean catch / Unknown Non-blood Collection / Unknown 06/25/2024 5:37 AM EDT 06/25/2024 5:40 AM EDT Narrative [facility] - 06/25/2024 6:43 AM EDT [facility] performs toxicology screens for the clinical management of the patient. The laboratory does not perform toxicology screens for LEGAL or EMPLOYMENT purposes. TEST ? CUTOFF CONCENTRATION VALUE Amphetamine/Methamphetamine ? 500 ng/mL Barbiturates ?200 ng/mL Benzodiazepines ? 200 ng/mL Cocaine ? 300 ng/mL Methadone ? 300 ng/mL Opiates ? 300 ng/mL THC ? 50 ng/mL PCP ? 25 ng/mL Oxycodone ? 100 ng/mL Ecstasy (MDMA) ?500 ng/mL Fentanyl ?1.0 ng/mL Results below the numerical cutoff indicate that either no drug OR a drug level below the cutoff value is present in the specimen. Note: According to instrument and control technician's instructions, when using a cutoff of 300 ng/mL for opiates, many individuals who have not used heroin but have taken a prescribed opiate-containing pharmaceutical, such as codeine or morphine, or have eaten poppyseeds may produce a positive screen. Sakina Horne DO LAB URINE ORDERABLES Final Result [facility] [address] [place] [address], * (ABNORMAL) URINALYSIS WITH MICROSCOPIC WITH REFLEX TO URINE CULTURE (06/25/2024 5:37 AM EDT) Color Light Yellow 06/25/2024 5:48 AM EDT [facility] TURBIDITY Clear Clear 06/25/2024 5:48 AM EDT [facility] SG 1.026 1.002 - 1.030 06/25/2024 5:48 AM EDT [facility] pH, Urine 5.5 5.0 - 8.0 06/25/2024 5:48 AM EDT [facility] Albumin Negative Negative 06/25/2024 5:48 AM EDT [facility] Glucose Negative Negative 06/25/2024 5:48 AM EDT [facility] Ketones Negative Negative 06/25/2024 5:48 AM EDT [facility] Bile Negative Negative 06/25/2024 5:48 AM EDT [facility] Blood Negative Negative 06/25/2024 5:48 AM EDT [facility] WBC esterase Negative Negative 06/25/2024 5:48 AM EDT [facility] Nitrite Negative Negative 06/25/2024 5:48 AM EDT [facility] WBC 0-5 0 - 5 /HPF LAB URINALYSIS - AUTOMATED METHOD 06/25/2024 5:48 AM EDT [facility] RBC 0-2 0 - 5 /HPF LAB URINALYSIS - AUTOMATED METHOD 06/25/2024 5:48 AM EDT [facility] EPITH CELLS 0-5 0 - 5 /HPF LAB URINALYSIS - AUTOMATED METHOD 06/25/2024 5:48 AM EDT [facility] WBC Clumps None Seen None Seen /HPF LAB URINALYSIS - AUTOMATED METHOD 06/25/2024 5:48 AM EDT [facility] Mucous 1+(A) None Seen /LPF LAB URINALYSIS - AUTOMATED METHOD 06/25/2024 5:48 AM EDT [facility] URINE SEDIMENTATION REQUIRED? Yes LAB URINALYSIS - AUTOMATED METHOD 06/25/2024 5:48 AM EDT [facility] Urine Urine specimen collection, clean catch / Unknown Non-blood Collection / Unknown 06/25/2024 5:37 AM EDT 06/25/2024 5:40 AM EDT Sakina Horne DO LAB URINE ORDERABLES Final Result [facility] [address] [place] [address], * CT Head without Contrast - General (06/25/2024 12:15 AM EDT) Anatomical Region Laterality Modality Head N/A Computed Tomogra phy 06/24/2024 11:4 5 PM EDT Impressions 06/25/2024 7:[address] appearance of the brain. ??No acute intracranial hemorrhage or territorial infarction. ??Unchanged right parietotemporal meningioma. I, the attending physician, attest that I have performed and/or supervised the resident for the hendrix and critical components of this procedure. I have personally reviewed the images pertinent to this examination and agree with the interpretation. Dictated: 06/25/2024 7:16 AM Report ID: [id number] Exam performed at [facility]. Report signed in external system at [facility] on 06/25/2024 07:16 Reported By: Geo Rey M.D (resident) ([id number]) Signed By: Sae Steen M.D. ([facility]) Narrative 06/25/2024 7:16 AM EDT RESPONSIBLE ORDNANCE ENGINEERING TECHNICIAN: Sae Steen M.D. EXAMINATION: CT HEAD WO CONTRAST CLINICAL INDICATION: Lethargy and weakness TECHNIQUE: Contiguous axial images were obtained from the foramen magnum to the vertex without contrast on a multidetector scanner. 2-D sagittal and coronal reconstructions were performed. No intravenous contrast was administered. Dose reduction technique: iterative reconstruction. COMPARISON: 05/25/2024, 04/16/2024 FINDINGS: Ventricles, sulci and cisterns: Enlarged in a pattern typical for age related volume loss. Cerebral and cerebellar parenchyma/brainstem/pituitary: There is no parenchymal hemorrhage. There is no mass effect or midline shift. There is moderate white matter low attenuation. ??The midline structures including the corpus callosum, pituitary gland and brainstem are normal. Extraaxial spaces/Meninges: Unchanged right parietotemporal partially calcified meningioma without significant mass effect. Vascular: There are atherosclerotic calcifications. Miscellaneous: The globes and orbits are normal. Advanced degenerative changes of the bilateral gxud-srzexzi-pjfb-right temporomandibular joints. ??Mild mucosal thickening of the maxillary sinuses and ethmoid air cells. Procedure Note Sae Steen MD - 06/25/2024 RESPONSIBLE ORDNANCE ENGINEERING TECHNICIAN: Sae Steen M.D. EXAMINATION: CT HEAD WO CONTRAST CLINICAL INDICATION: Lethargy and weakness TECHNIQUE: Contiguous axial images were obtained from the foramen magnum to thevertex without contrast on a multidetector scanner. 2-D sagittal andcoronal reconstructions were performed. No intravenous contrast wasadministered. Dose reduction technique: iterative reconstruction. COMPARISON: 05/25/2024, 04/16/2024 FINDINGS: Ventricles, sulci and cisterns: Enlarged in a pattern typical for agerelated volume loss. Cerebral and cerebellar parenchyma/brainstem/pituitary: There is noparenchymal hemorrhage. There is no mass effect or midline shift. There ismoderate white matter low attenuation. The midline structures includingthe corpus callosum, pituitary gland and brainstem are normal. Extraaxial spaces/Meninges: Unchanged right parietotemporal partiallycalcified meningioma without significant mass effect. Vascular: There are atherosclerotic calcifications. Miscellaneous: The globes and orbits are normal. Advanced degenerativechanges of the bilateral xwqu-zruvxmh-nkrf-right temporomandibular joints.Mild mucosal thickening of the maxillary sinuses and ethmoid air cells. IMPRESSION: Unchanged CT appearance of the brain. No acute intracranial hemorrhage orterritorial infarction. Unchanged right parietotemporal meningioma. I, the attending physician, attest that I have performed and/or supervised the resident for the hendrix and critical components of this procedure. I have personally reviewed the images pertinent to this examination and agree with the interpretation. Dictated: 06/25/2024 7:16 AM Report ID: [id number] Exam performed at [facility]. Report signed in external system at [facility] on 507:16 Reported By: Geo Rey M.D (resident) ([id number]) Signed By: Sae Steen M.D. ([facility]) Sakina Horne DO IMG CT PROCEDURES Fin al Result * EKG (06/24/2024 11:48 PM EDT) 06/24/2024 11:4 8 PM EDT Sakina Horne DO ECG ORDERABLES Final Result [facility] [address] [facility] [address] * Red Top (06/24/2024 11:38 PM EDT) Blood Venous blood / Unknown Venipuncture / Unknown 06/24/2024 11:38 PM EDT 06/24/2024 11:47 PM EDT Sakina Horne DO LAB BLOOD ORDERABLES Final Result [facility] [address] [place] [address], [place] [phone] * Light Blue Top (06/24/2024 11:38 PM EDT) Blood Venous blood / Unknown Venipuncture / Unknown 06/24/2024 11:38 PM EDT 06/24/2024 11:45 PM EDT Sakina Horne DO LAB BLOOD ORDERABLES Final Result [facility] [address] [place] [address], [place] [phone] * Gold Top (06/24/2024 11:38 PM EDT) Blood Venous blood / Unknown Venipuncture / Unknown 06/24/2024 11:38 PM EDT 06/24/2024 11:47 PM EDT Sakina Horne LAB BLOOD ORDERABLES Final Result [facility] [address] [place] [address], [place] [phone] * Gold Top (06/24/2024 11:38 PM EDT) Blood Venous blood / Unknown Venipuncture / Unknown 06/24/2024 11:38 PM EDT 06/24/2024 11:47 PM EDT Sakina Horne DO LAB BLOOD ORDERABLES Final Result [facility] [address] [place] [address], [place] [phone] * Troponin I (06/24/2024 11:38 PM EDT) Troponin I <0.012 <0.034 ng/mL ng/mL 06/25/2024 12:25 AM EDT [facility] Comment:Note: Biotin supplem ents may cause bias with this assay result. Repeat testing after stopping supplements for at least 48 hours is suggested, if results do not fit the clinical picture. Blood Venous blood / Unknown Venipuncture / Unknown 06/24/2024 11:38 PM EDT 06/24/2024 11:47 PM EDT Sakina Horne DO LAB BLOOD ORDERABLES Final Result Performing Organization Address City/[facility]/ZIP Co de Phone Number [facility] [address] [place] [address], [place] [phone] * Phosphorus (06/24/2024 11:38 PM EDT) PHOSPHATE 3.2 2.5 - 4.5 mg/dL 06/25/2024 12:17 AM EDT [facility] Blood Venous blood / Unknown Venipuncture / Unknown 06/24/2024 11:38 PM EDT 06/24/2024 11:47 PM EDT Sakina Sosa [employer] DO LAB BLOOD ORDERABLES Final Result Performing Organization Address [facility] Co de Phone Number [facility] [address] [place] [address], [place] [phone] * Magnesium (06/24/2024 11:38 PM EDT) Pathologist [facility] Magnesium Blood 2.2 1.6 - 2.3 mg/dL 06/25/2024 12:17 AM EDT [facility] Blood Venous blood / Unknown Venipuncture / Unknown 06/24/2024 11:38 PM EDT 06/24/2024 11:47 PM EDT Sakina Sosa [employer] DO LAB BLOOD ORDERABLES Final Result Performing Organization Address [facility]/ZIP Co de Phone Number [facility] [address] [place] [address], [place] [phone] * Toxicology screen, serum (06/24/2024 11:38 PM EDT) Ethanol Lvl <10 mg/dL 06/25/2024 12:17 AM EDT [facility] Comment: Ethanol Reference Ranges: ? Normal: None Detected ? Toxic: >100 mg/dL Salicylate Lvl <1 <=35 mg/dL 06/25/2024 12:17 AM EDT [facility] ACETAMINOPHEN 19 <=30.0 ug/mL 06/25/2024 12:17 AM EDT [facility] Blood Venous blood / Unknown Venipuncture / Unknown 06/24/2024 11:38 PM EDT 06/24/2024 11:47 PM EDT Narrative [facility] - 06/25/2024 12:17 AM EDT Note: The serum drug screen does not include common theraputic drugs such as benzodiazepines, barbiturates, and tricyclics. Sakina Horne DO LAB BLOOD ORDERABLES Final Result [facility] [address] [place] [address], * (ABNORMAL) Comprehensive metabolic panel (06/24/2024 11:38 PM EDT) Sodium 142 137 - 145 mmol/L 06/25/2024 12:17 AM T [facility] Potassium 5.1 3.5 - 5.1 mmol/L 06/25/2024 12:17 AM T [facility] CHLORIDE 109(H) 98.00 - 107.00 mmol/L 06/25/2024 12:17 AM EDT [facility] CARBON DIOXIDE, TOTAL 28.0 22.0 - 30.0 mmol/L 06/25/2024 12:17 AM EDT [facility] ANION GAP 5.0(L) 6 - 14 06/25/2024 12:17 AM T [facility] GLUCOSE 122(H) 70 - 99 mg/dL 06/25/2024 12:17 AM EDT [facility] CALCIUM 8.7 8.3 - 10.3 mg/dL 06/25/2024 12:17 AM T [facility] CREATININE 1.3 0.7 - 1.3 mg/dL 06/25/2024 12:17 AM [facility] ALBUMIN 3.6 3.5 - 5.0 g/dL 06/25/2024 12:17 AM [facility] Bilirubin Total 0.4 0.2 - 1.3 mg/dL 06/25/2024 12:17 AM [facility] Comment:Serum Bilirubin leve ls may be falsely elevated in patients who are being treated with Eltrombopag due to interference with the assay. BILIRUBIN DIRECT 0.2 0.0 - 0.4 mg/dL 06/25/2024 12:17 AM [facility] Comment:Serum Bilirubin leve ls may be falsely elevated in patients who are being treated with Eltrombopag due to interference with the assay. ALKALINE PHOSPHATASE 82 38 - 126 U/L 06/25/2024 12:17 AM [facility] AST (SGOT) 40 15 - 46 U/L 06/25/2024 12:17 AM [facility] ALT 24 <50 U/L 06/25/2024 12:17 AM [facility] Comment:Note new reference r papito Protein, Total 5.9(L) 6.3 - 8.2 g/dL 06/25/2024 12:17 AM [facility] Comment:Serum Total Protein levels may be falsely elevated in patients who are being treated with Eltrombopag due to interference with the assay. BUN 51(H) 9 - 20 mg/dL 06/25/2024 12:17 AM [facility] eGFRcr 56 06/25/2024 12:17 AM [facility] Comment: eGFR Reference Range: ? > 60 mL/min/1.73 Sq meter Blood Venous blood / Unknown Venipuncture / Unknown 06/24/2024 11:38 PM EDT 06/24/2024 11:47 PM EDT Sakina Horne DO LAB BLOOD ORDERABLES Final Result [facility] [address] [place] [address], [place] [phone] * (ABNORMAL) CBC auto differential (06/24/2024 11:38 PM EDT) WBC 3.13(L) 4.00 to 11.00 x 10*3u/L 10*3/uL 06/25/2024 12:02 AM [facility] nRBC 0 0 - 0 /100 WBCs 06/25/2024 12:02 AM [facility] RBC 3.16(L) 4.30 to 5.80 x 10*6/uL 10*6/uL 06/25/2024 12:02 AM [facility] HGB 10.1(L) 13.5 to 17.5 g/dL g/dL 06/25/2024 12:02 AM [facility] HCT 32.2(L) 41.0% to 53.0% % 06/25/2024 12:02 AM [facility] MCV 101.9(H) 80.0 to 94.0 fL fL 06/25/2024 12:02 AM [facility] MCH 32.0 26.0 - 33.0 pg 06/25/2024 12:02 AM [facility] MCHC 31.4 31.0 to 37.0 g/dL g/dL 06/25/2024 12:02 AM [facility] PLT 147(L) 150 to 400 x 10*3u/l 10*3u/L 06/25/2024 12:02 AM [facility] RDW-CV 12.9 11.5 - 14.5 % 06/25/2024 12:02 AM [facility] Segmented % 57.6 30.0 - 85.0 % 06/25/2024 12:02 AM [facility] ABS Neutrophil 1.80 1.20 - 9.30 10*3/uL 06/25/2024 12:02 AM [facility] Lymphocytes % 18.2 15.0 - 50.0 % 06/25/2024 12:02 AM [facility] ABS Lymphocyte 0.57(L) 0.60 - 5.50 10*3u/L 06/25/2024 12:02 AM EDT [facility] Monocytes % 19.8(H) 2.0 - 12.0 % 06/25/2024 12:02 AM EDT [facility] ABS Monocytes 0.62 0.08 to 1.30 x 10*3u/L 10*3/uL 06/25/2024 12:02 AM EDT [facility] Eosinophils % 3.5 0.0 - 5.0 % 06/25/2024 12:02 AM EDT [facility] ABS Eosinophils 0.11 0.00 to 0.68 x 10*3u/L 10*3/uL 06/25/2024 12:02 AM EDT [facility] Basophil % 0.6 0.0 - 2.0 % 06/25/2024 12:02 AM EDT [facility] ABS Basophils 0.02 0.00 - 0.20 10*3/uL 06/25/2024 12:02 AM EDT [facility] IMM GRAN 0.3 0.0 - 1.0 % 06/25/2024 12:02 AM EDT [facility] ABS IMM GRAN 0.01 0.00 - 0.10 10*3/uL 06/25/2024 12:02 AM EDT [facility] Blood Venous blood / Unknown Venipuncture / Unknown 06/24/2024 11:38 PM EDT 06/24/2024 11:47 PM EDT us Sakina Horne DO LAB BLOOD ORDERABLES Final Result [facility] [address] [place] [address], [place] [phone] * XR Chest Portable 1 View (06/24/2024 11:29 PM EDT) Anatomical Region Laterality Modality Chest Computed Radiogr aphy 06/24/2024 11:2 5 PM EDT Impressions 06/25/2024 7:20 AM EDT Findings favoring bibasilar atelectasis with small left-sided pleural effusion. ??Pneumonia is also a consideration. I, the attending physician, attest that I have performed and/or supervised the resident for the hendrix and critical components of this procedure. I have personally reviewed the images pertinent to this examination and agree with the interpretation. Dictated: 06/25/2024 7:20 AM Report ID: [id number] Exam performed at [facility]. Report signed in external system at [facility] on 06/25/2024 07:20 Reported By: Geo Rey M.D (resident) ([id number]) Signed By: Sae Steen M.D. ([facility]) Narrative 06/25/2024 7:20 AM EDT RESPONSIBLE ORDNANCE ENGINEERING TECHNICIAN: Sae Steen M.D. EXAMINATION: XR CHEST PORTABLE 1 VW CLINICAL INDICATION: Altered mental status TECHNIQUE: AP upright projection of the chest obtained portably at 11:26 p.m.. COMPARISON: 04/17/2024, 04/12/2024 FINDINGS: The heart is not enlarged. ??The mediastinal contours are within normal limits. ??The aorta is tortuous. ??There is a small left-sided pleural effusion. ??No pneumothorax. ??There is bibasilar atelectasis. ??No pulmonary edema. ??Degenerative changes in the bones. Procedure Note Sae Steen MD - 06/25/2024 RESPONSIBLE ORDNANCE ENGINEERING TECHNICIAN: Sae Steen M.D. EXAMINATION: XR CHEST PORTABLE 1 VW CLINICAL INDICATION: Altered mental status TECHNIQUE: AP upright projection of the chest obtained portably at 11:26 p.m.. COMPARISON: 04/17/2024, 04/12/2024 FINDINGS: The heart is not enlarged. The mediastinal contours are within normallimits. The aorta is tortuous. There is a small left-sided pleuraleffusion. No pneumothorax. There is bibasilar atelectasis. No pulmonaryedema. Degenerative changes in the bones. IMPRESSION: Findings favoring bibasilar atelectasis with small left-sided pleuraleffusion. Pneumonia is also a consideration. I, the attending physician, attest that I have performed and/or supervised the resident for the hendrix and critical components of this procedure. I have personally reviewed the images pertinent to this examination and agree with the interpretation. Dictated: 06/25/2024 7:20 AM Report ID: [id number] Exam performed at [facility]. Report signed in external system at [facility] on 507:20 Reported By: Geo Rey M.D (resident) ([id number]) Signed By: Sae Steen M.D. ([facility]) Sakina Sosa Coleen DO IMG XR PROCEDURES Fin al Result documented in this encounter Visit Diagnoses Diagnosis Schizoaffective disorder, unspecified type (CMS/HCC) [F25.9]- Primary Suicidal ideation Sinus bradycardia Other specified cardiac dysrhythmias documented in this encounter Administered Medications Active Administered Medications - up to 3 most recent administrations Medication Order MAR Action Action Date Dose Rate Site acetaminophen (TYLENOL) tablet 975 mg 975 mg (rounded from 1,000 mg), oral, 3 times daily PRN, mild pain (1-3), moderate pain (4-6), headaches, fever >100.4, Starting on Sat06/25/24 at 0059 Given 06/25/2024 9:24 AM EDT 975 mg baclofen (LIORESAL) tablet 5 mg 5 mg, oral, 3 times daily, First dose on Charo 06/25/24 at 0600 Given 06/26/2024 4:08 PM EDT 5 mg Given 06/26/2024 6:38 AM EDT 5 mg Given 06/25/2024 9:02 PM EDT 5 mg clonazePAM (KlonoPIN) tablet 1 mg 1 mg, oral, Nightly, First dose on Sat06/25/24 at 2100, Hazardous, do not crush, open or split. Single chemo glove required. Given 06/25/2024 9:01 PM EDT 1 mg pantoprazole (PROTONIX) EC tablet 40 mg 40 mg, oral, Every morning before breakfast, First dose on Charo 06/25/24 at 0600, For 16 days, Administer 30 to 60 minutes before meals Do not crush Given 06/26/2024 6:38 AM EDT 40 mg Given 06/25/2024 5:22 AM EDT 40 mg QUEtiapine (SEROquel) tablet 300 mg 300 mg, oral, Nightly, First dose on Sat06/25/24 at 0100, For 16 days Given 06/25/2024 9:01 PM EDT 300 mg QUEtiapine (SEROquel) tablet 50 mg 50 mg, oral, Every morning, First dose on Sat06/25/24 at 0600 Given 06/26/2024 6:37 AM EDT 50 mg tranylcypromine (PARNATE) tablet 30 mg (patient own) 30 mg, oral, 3 times daily, First dose on Sat06/25/24 at 0600, Drug Name: Parnate, Form: tablet, Length of Therapy: Indefinite, Reason for Non-Formulary: not carried in hospital, Pager number: [phone], Is medication patient-own or pharmacy supplied? Patient-Own Given 06/26/2024 6:38 AM EDT 30 mg Given 06/25/2024 9:02 PM EDT 30 mg Given 06/25/2024 2:11 PM EDT 30 mg Inactive Administered Medications - up to 3 most recent administrations Medication Order MAR Action Action Date Dose Rate Site sodium chloride 0.9 % bolus 1,000 mL 1,000 mL, intravenous, at 500 mL/hr, Administer over 2 Hours, Once, On Sat06/24/24 at 2325, For 1 dose New Bag 06/24/2024 11:59 PM EDT 1,000 mL 50 0 mL/hr documented in this encounter Active and Recently Administered Medications Times are shown in EDT. Scheduled Medication Order 06/24/2024 06/25/2024 06/26/2024 baclofen (LIORESAL) tablet 5 mg 5 mg, oral, 3 times daily, First dose on Sat06/25/24 at 0600 0506 (Not Given - Provider: Melvina Stovall RN - Reason: Contraindicated)1315 (Given - Provider: Vianca Powers RN)2102 (Given - Provider: Swapnil Faith RN) 0638 (Given - Provider: Swapnil Faith, VALARIE)1608 (Given - Provider: Doreen Nelson RN - Comment: pt decision)2100 (Due) clonazePAM (KlonoPIN) tablet 1 mg 1 mg, oral, Nightly, First dose on Sat06/25/24 at 2100, Hazardous, do not crush, open or split. Single chemo glove required. 2100 (Given - Provider: Swapnil Faith RN) 2099 (Due) pantoprazole (PROTONIX) EC tablet 40 mg 40 mg, oral, Every morning before breakfast, First dose on Sat06/25/24 at 0600, For 16 days, Administer 30 to 60 minutes before meals Do not crush 0522 (Given - Provider: Melvina Stovall RN) 0638 (Given - Provider: Swapnil Faith RN) QUEtiapine (SEROquel) tablet 300 mg 300 mg, oral, Nightly, First dose on Sat06/25/24 at 0100, For 16 days 011 (Not Given - Provider: Melvina Stovall RN - Reason: Contraindicated)2100 (Given - Provider: Swapnil Faith RN) 2099 (Due) QUEtiapine (SEROquel) tablet 50 mg 50 mg, oral, Every morning, First dose on Sat06/25/24 at 0600 0507 (Not Given - Provider: Melvina Stovall RN - Reason: Contraindicated) 0637 (Given - Provider: Swapnil Faith RN) sodium chloride 0.9 % bolus 1,000 mL (COMPLETED) 1,000 mL, intravenous, at 500 mL/hr, Administer over 2 Hours, Once, On Sat06/24/24 at 2325, For 1 dose 2359 (New Bag - Provider: Melvina Stovall RN) 0103 (Stopped - Provider: Melvina Stovall RN) tranylcypromine (PARNATE) tablet 30 mg (patient own) 30 mg, oral, 3 times daily, First dose on Sat06/25/24 at 0600, Drug Name: Parnate, Form: tablet, Length of Therapy: Indefinite, Reason for Non-Formulary: not carried in hospital, Pager number: [phone], Is medication patient-own or pharmacy supplied? Patient-Own 0507 (Not Given - Provider: Melvina Stovall RN - Reason: Medication not available)1411 (Given - Provider: Vianca Powers RN)210 (Given - Provider: Swapnil Faith RN) 0638 (Given - Provider: Swapnil Faith RN)1626 (Not Given - Provider: Doreen Nelson RN - Reason: Medication not available)2100 (Due) PRN Medication Order 06/24/2024 06/25/2024 06/26/2024 acetaminophen (TYLENOL) tablet 975 mg 975 mg (rounded from 1,000 mg), oral, 3 times daily PRN, mild pain (1-3), moderate pain (4-6), headaches, fever >100.4, Starting on Charo 06/25/24 at 0059 0924 (Given - Provider: Vianca Powers RN) diclofenac sodium (Voltaren) 1 % gel 4 g 4 g, Topical, 4 times daily PRN, left shoulder pain, Starting on Charo 06/25/24 at 0059, For 16 days, Apply to left shoulder Use dosing card to measure dose. documented in this encounter Care Teams Data Analyst Etl Developer Relationship Specialty Start Date End Date Oziel Carrington MD [address] [place] [id number] PCP - General Internal Medicine 10/19/22 documented as of this encounter
--- OUTSIDE RECORDS SUMMARY | 2024-06-26 20:12 | XMS_ITS | Encounter Summary ---
Author Organization [facility] Address [address] [facility] [place] [address] Care Team Providers Care Collaborating Supervising Physician Name Role Phone Oziel Carrington MD Primary Care Provider [phone] Encounter Details Date Type Department Care Team (Late st Contact Info) Description 06/16/[address] [facility] Main Lab [address] [place] [id number] Nadeen Cooper NP [address] [id number] Social History Tobacco Use Types Packs/Day Years Used Date Smoking Tobacco: Never Passive Smoke Exposure: Never Smokeless Tobacco: Never Alcohol Use Standard Drinks/Week Comments Never 0 (1 standard drink = 0.6 oz pur e alcohol) [facility] Utilities Answer Date Recorded In the past 12 months has [employer], gas, oil, or water [employer] threatened to shut off services in your [...] 1 03/06/2024 PHQ-9 Total Score 5 03/06/2024 Benicia Scale Score: Not on file Sex and [...] jocy e documented as of this encounter Functional Status * Because of a physical, mental, or emotional condition, does this person have difficulty doing errands alone such as visiting a doctor's office or shopping? Answer Date of Assessment Author No 02/20/2024 2:41 PM EST documented as of this encounter Plan of Treatment Upcoming Encounters Date Type Department Care Team (Late st Contact Info) Description 06/16/2024 Procedure Pass [facility] [address] [place] [address] [phone] 07/07/2024 1:30 PM EDT Appointment [facility] [address] [place] [address] [phone] 09/16/2024 2:00 PM EDT Office Visit [facility] [address] [facility] [address], [address] [place] [address] Oziel Carrington MD [address] [facility] [address] [facility] [address] [place] [address] 10/07/2024 2:30 PM EDT Office Visit 2nd Floor [facility] [address] [facility] [address] [facility] 2nd floor room [address] [place] [address] Felipe Bishop, CYNDY [address] [place] [address] 10/22/2024 11:00 AM EDT Appointment [facility] [address] [place] [address] [phone] John West MD [address] [place] [address] [place] [phone] 11/03/2024 3:00 PM EDT Office Visit [facility] [address] [facility] [address], [address] [place] [address] John West MD [address] [place] [address] [place] [phone] documented as of this encounter Visit Diagnoses Not on filedocumented in this encounter Additional Health Concerns Infection Onset Date Last Indicated Resolved Time Highly Infectious Respiratory Virus 06/04/202406/0406/16/2024 11:33 AM EST documented as of this encounter Care Teams Collaborating Supervising Physician Relationship Specialty Start Date End Date Oziel Carrington MD [address] [facility] [address] [place] [address] PCP - General Internal Medicine 10/19/22 documented as of this encounter
--- OUTSIDE RECORDS SUMMARY | 2024-06-26 20:12 | XMS_ITS | Encounter Summary ---
Author Organization [facility] Address [address] [place] [address] Care Team Providers Care Field Enumerator Name Role Phone Oziel Carrington MD Primary Care Provider [phone]- [phone] Encounter Details Date Type Department Care Team (Late st Contact Info) Description 05/24/2022 Procedure Pass [facility] [address] [place] [address] [phone] Social History Tobacco Use Types Packs/Day Years Used Date Smoking Tobacco: Never Smokeless Tobacco: Never Alcohol Use Standard Drinks/Week Comments Not Currently 0 (1 standard drink = 0.6 oz pur e alcohol) Sex and Gender Information Value Date Recorded Sex Assigned at Male 07/18/2021 5:48 PM EDT Legal Sex Male 3:32 PM EST Gender Identity Male 07/18/2021 5:48 PM EDT Sexual Orientation Straight 05/21/2024 7: 28 AM EST COVID-19 Exposure Response Date Recorded In the last 10 days, have yo u been in contact with someone who was confirmed or suspected to have Coronavirus/COVID-19? No / Unsure 05/20/2022 3:58 PM EST documented as of this encounter Last Filed Vital Signs Vital Sign Reading Time Taken Comments Blood Pressure - - Pulse - - Temperature - - Respiratory Rate - - Oxygen Saturation - - Inhaled Oxygen Concentration - - Weight 50.8 kg (112 lb) 05/24/2022 7:08 PM EST Height - - Body Mass Index 18.08 05/21/2022 12:00 PM EST documented in this encounter Functional Status * Because of a physical, mental, or emotional condition, does this person have difficulty doing errands alone such as visiting a doctor's office or shopping? Answer Date of Assessment Author No 03/23/2021 1:09 PM EST documented as of this encounter Plan of Treatment Upcoming Encounters Date Type Department Care Team (Late st Contact Info) Description 06/16/2024 Procedure Pass [facility] [address] [place] [address] [phone] 07/07/2024 1:30 PM EDT Appointment [facility] [address] [place] [address] [phone] 09/16/2024 2:00 PM EDT Office Visit [facility] [address] [place] [address], [address] [place] [phone] Oziel Carrington MD [address] [place] [address] [place] [phone] 10/07/2024 2:30 PM EDT Office Visit 2nd Floor [facility] [address] [facility] [address] [facility] 2nd floor room [address] [place] [address] Felipe Bishop, CYNDY [address] [place] [address] 10/22/2024 11:00 AM EDT Appointment [facility] [address] [place] [address] [phone] John West MD [address] [place] [address] [place] [phone] 11/03/2024 3:00 PM EDT Office Visit [facility] [address] [facility], [address] [place] [phone] John West MD [address] [place] [address] [place] [phone] documented as of this encounter Visit Diagnoses Not on filedocumented in this encounter Additional Health Concerns Infection Onset Date Last Indicated Resolved Time Highly Infectious Respiratory Virus 07/03/202207/0307/13/2022 3:12 PM EDT Highly Infectious Respirator y Virus (Rule Out) 08/04/2022 08/04/2022 08/04/2022 11:29 AM EDT Highly Infectious Respiratory Virus 08/04/202208/0409/01/2022 1:52 AM EDT C. Diff (Rule Out) 05/06/2023 05/06/2023 9:49 AM EST Highly Infectious Respirator y Virus (Rule Out) 07/24/2023 07/24/2023 07/25/2023 7:07 AM E DT Influenza 07/24/2023 07/24/2023 07/31/2023 1:52 AM EDT Highly Infectious Respirator y Virus (Rule Out) 12/13/2023 12/14/2023 12/14/2023 12:49 AM EDT Highly Infectious Respiratory Virus 06/04/202406/0406/16/2024 11:33 AM EST documented as of this encounter Care Teams Field Enumerator Relationship Specialty Start Date End Date Oziel Carrington MD [address] [phone] PCP - General Internal Medicine 10/19/22 documented as of this encounter
--- OUTSIDE RECORDS SUMMARY | 2024-06-26 20:12 | XMS_ITS | Encounter Summary ---
Author Organization [facility] Address [address] [facility] [place] [address] Care Team Providers Care Key Holder Name Role Phone Oziel Carrington MD Primary Care Provider [phone]- [phone] Reason for Referral * Rehab (Routine) - Authorized Specialty Diagnoses / Procedures Referred By Wesley nunez Referred To Contact Occupational Therapy Diagnoses Unsteady gait Lumbar spondylolysis Nadeen Cooper NP [address] [place] [address] Phone: tel: fax: Referral ID Status Reason Start Date Expiration Date Visits Requested Visits Authorized [id number] Authorized Specialty Services Required 06/16/2024 06/16/2025 1 1 * Rehab (Routine) - Authorized Specialty Diagnoses / Procedures Referred By Wesley nunez Referred To Contact Physical Therapy Diagnoses Unsteady gait Lumbar spondylolysis Nadeen Cooper NP [address] [facility] [address] [place] [phone] Phone: tel: fax: Referral ID Status Reason Start Date Expiration Date Visits Requested Visits Authorized [id number] Authorized Specialty Services Required 06/16/2024 06/16/2025 1 1 Scheduling Instructions First available Reason for Visit * Reason Comments Tranistion Of Care Follow Up Encounter Details Date Type Department Care Team (Late st Contact Info) Description 06/16/2024 1:00 PM EST Office Visit [facility] [address] [facility], [address] [place] [phone] Nadeen Cooper NP [address] [facility] [address] [place] [phone] Encounter for support and coordination of transition of care (Primary Dx); Suicidal ideation; Unsteady gait; Lumbar spondylolysis; Stage 3b chronic kidney disease (CMS/HCC); Pancytopenia (CMS/HCC) Social History Tobacco Use Types Packs/Day Years Used Date Smoking Tobacco: Never Passive Smoke Exposure: Never Smokeless Tobacco: Never Alcohol Use Standard Drinks/Week Comments Never 0 (1 standard drink = 0.6 oz pur e alcohol) [facility] Utilities Answer Date Recorded In the past 12 months has th e [place], gas, oil, or water [employer] threatened to shut off services in your [...] 1 03/06/2024 PHQ-9 Total Score 5 03/06/2024 [place] Scale Score: Not on file Sex and [...] Sign Reading Time Taken Comments Blood Pressure 128/72 06/16/2024 12:43 PM EST Pulse 54 06/16/2024 12:43 PM EST Temperature - - Respiratory Rate - - Oxygen Saturation 96% 06/16/2024 12:43 PM EST Inhaled Oxygen Concentration - - Weight 57.6 kg (127 lb) 06/16/2024 12:43 PM EST Height 165.1 cm (5' 5 ) 06/16/2024 12:43 PM EST Body Mass Index 21.13 06/16/2024 12:43 PM EST documented in this encounter Functional Status * Because of a physical, mental, or emotional condition, does this person have difficulty doing errands alone such as visiting a doctor's office or shopping? Answer Date of Assessment Author No 02/20/2024 2:41 PM EST documented as of this encounter Progress Notes * Nadeen Cooper NP - 06/16/2024 1:00 PM EST Subjective Chief Complaint Patient presents with Tranistion Of Care Follow Up HPI: Cody Funez is a 78 y.o. male, presenting for Transition of Care visit from Acute hospital: Ej Diagnoses: Delirium secondary to sudden change in antipsychotics, SI Date of Discharge:06/11/2024 Any medication changes? yes New medication Senna, increase in Seroquel to 300 mg at night and 50 mg in the morning Discontinued medication Miralax, iron Home services: The patient is receiving home health services, including a home health aide. Barriers to care: transpiration: no, cost of medications: no Code status: not specified Postdischarge questions completed. Discharge medication list was reconciled with the current medication list in the outpatient medicalrecord. Brief Summary of Hospital Course: HOSPITAL COURSE: 78 year-old single man with past medical history significant for chronic pain, spinal stenosis, IBS, GI bleed, CKD3 and past psychiatric history of schizoaffective disorder bipolar type, who [facility] with complaints of severe abdominal and left-sided pain along with SI, found to be hyponatremic to 124 along with pancytopenia. Medically admitted and stabilized. Reports not feel safe if he were to return home because of occasional intrusive thoughts to kill himself and others although he denies any intention. Feels safe in the unit. Admitted in [place] [id number] under CV. PROBLEMS: #Delirium secondary to sudden changes in antipsychotics. On 05/22/24 he refused to take Abilify because it produced insomnia. He was restarted on Quetiapine 75 mg qam and 325 mg qhs. Returning to the full Quetiapine dose produced a period of confusion and poor coordination, which gradually improved with the reduction of Quetiapine followed by a more gradual titration of this medication. He had a medical and neurological work up over last weekend which has been unremarkable. This confusion reflect his level of extreme fragility to medication changes With time, mental status gradually improved and returned to baseline level of orientation and mild decreased attention. #Chronic intrusive thoughts of killing himself or others. H/o Schizoaffective disorder. Obsessive features These thoughts have been present for many years and sometimes he describes them as voices , although it is unclear if they are in fact CAH or just intense thoughts. 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 He is not completely convinced this is true. Intrusive thoughts/overvalued ideas had a very limited response to psychotropics. There is a connection between the thoughts and his chronic physical pain. As he explains, They worsen each other . Although he has several friends in AA and in the community, he has very limited practical supports at home. He feels that pain is the most limiting factor in his life but ambivalent about having surgery, buthe understood that cannot go home on opiates because of high risk of respiratory depression in combination with his other meds. During this hospital stay, Abilify gradually replaced Quetiapine and it seemed to have some benefitover the intensity of negative thoughts, but once the change was finalized, he complained that he could not sleep at night. Therefore it was decided to return to Quetiapine, but going back to the full dose produced a delirious state which resolved after the reduction of Quetiapine dose and gradual retitration. His intrusive thoughts returned to their stable baseline and patient consistently denied SI or plan/intent of self-harm or /HI. Patient appropriately engaging in treatment, engaged in self-care and spontaneously future-oriented with no concerning behaviors exhibited. On the day of discharge, patient again denied any intrusive thoughts or SI/ in the morning, but as discharge time approached in the afternoon reports fleeting intrusive thoughts of SI and /HI in the context of pain which resolved. Met with patient and HCP for extensive meeting to discuss cancelling discharge, reviewing the A/R/B of continued hospitalization versus returning home and patient decided he wished to be discharged as planned. He was without evidence of psychosis, sofia, mixed episode, hypomania, MDE and was otherwise future-oriented, amenable to upcoming orthopedic appointment and possibly revisiting recommendation of spinal surgery as his chronic pain issues are clearly linked to intermittentintrusive thoughts. #Decreased STM -Throughout his hospitalization, he required repetition of information that has been discussed withhim before. Unclear if this is caused by his decreased hearing, the needs to put attention to different types of information, his apprehension around different issues or medication side effcts. MoCA on 05/15/2024: , MIS 12/28. He has some difficulties with delayed recall. Able to identify all words with multiple choice cueing. Repeat MoCA in 2-3 months. #COVID 19: Negative on admission. He tested positive (06/04/24) after screening was made with all patients in the unit after exposure to a patient that turned positive Reports occasional mild dry cough, VSS, no SOB, malaise, fever or hypoxia. Seen by GM and deemed not to be a candidate for Paxlovid because high risk for drug-drug interaction with several of his medications, in particular quetiapine which is currently crucial for his emotional stability. Patient remained with minimal if any symptoms (occasional dry cough), stable VS and did not require any further interventions. #TD From past antipsychotic use #Sinus bradycardia (Stable) - Asymptomatic heart rate of 40s-50s (particularly while asleep) #Chronic pain syndrome. Multiple sources. -L shoulder pain. From moderate osteoarthritis. His orthopedist at the [facility] is recommending joint replacement. -Back pain and L sided pain. Most likely from spinal stenosis, severe dextroscoliosis of Lumbar spine and radiculopathy He saw Dr Reyes, his spine doctor in Mar 2024 who told him that some of his pain could be relieved with back surgery and strongly recommended having it. -Patient is ambivalent about having any operation and even if he decided to have one, he is not sure which operation he should have first. -Dr Carrington was informed about different events in the hospital about his longstanding ambivalence towards surgery. -He will receive PT at home after discharge and eventually PCP will refer him back to outpatient [facility] (although patient reports a preference for [facility]) -PCP agrees that it is not safe for him to use oxycodone at home given his high risk side effects. #Irritable bowel syndrome. Mainly constipated. 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 Differential considerations include ongoing panniculitis. Neoplasm is less likely given interval improvement from the prior study from 12/14/2023. Outpatient f/u with pcp including for MRCP #Unresponsive episode/transient hypoxemic respiratory failure on [employer] for hypotension, hypoxia and lethargy. He rapidly improved with supportive care. Symptoms were attributed to psychiatric medications. Stable for last several days. CXR on 04/17/24 with bilateral pleural effusions. -prior history of right sided transudative effusion. Prior TTE with in 07/06 EF 60-65%, mild to moderate MR, and PASP of 33 mmHg + CVP.) #Code status: Full code #Legal: Signed CV, Section 10&11 #Suicidal risk determination: Chronically elevated due to chronic SI but no current acute elevationin baseline risk as has been consistently denying SI and no concerning behaviors exhibited over prolonged hospitalization. No history of prior suicide attempts. No access to firearms. Actively engaged in medical and psychiatric treatment, future-oriented, ability to navigate resources and able to engage in safety planning with demonstrated pattern of reaching out for help when needed in the past. Clinical Update Since Discharge to Home: Accompanied by HCP Braxton Jc. Patient states that he continues to be in discomfort, mainly on the left side of his body. Patient stated that since he has been home he has received a cortisoneinjection in his left shoulder which has not given him relief just yet. HCP stated he was looking for resources in the community for meal preparation that would recognize his MAOI restriction diet. HCP stated that he would be speaking with [facility] (elder services) to discuss what services Cody is eligible for. Cody does have a homebound teacher 2 days/week to help with grocery shopping and laundry. Cody states that he has been in touch with his therapist since his discharge. Patient states along with physical therapy, the hospital wanted him to receive occupational therapy as well this order will be placed today. Appointments: Psychiatry: Patient has a telehealth phone appointment on 06/30/24 at 3:[address] Diana Cm MD, [facility], [address] [place] [address]. [place] [address] (ph) [phone]. PCP: Patient has an appointment on 06/16 at 1pm with Nadeen Cooper NP MD at [address] [place] [address] (ph) [phone]. Therapy: Please continue to see SERGE Farrell (phone) [phone]. Email: [email or web address] Senior Services: Your [facility] will resume. [address] [place] [address] Physical Therapy: Please speak with PCP office at your appointment on 06/16 to get a prescription to [facility], [address] [place] [address], [address], [place] (ph) [phone]. Health Care Agent(s): Health Care Agent: Braxton Jc - Friend - [phone] First Alternate Health Care Agent: Chance Garcia - Michael - [phone] The following portions of the patient's history were reviewed and updated as appropriate: allergies, current medications, past medical history, past surgical history, tobacco use and problem list. Prior to Admission medications Medication Sig Start Date End Date Taking? Authorizing Provider acetaminophen (TYLENOL) 500 mg tablet Take 2 tablets (1,000 mg total) by mouth 3 (three) times a day. 06/11/24 07/11/24 Vianca Dey MD baclofen 5 mg tablet Take 5 mg by mouth 3 (three) times a day. 06/11/24 Vianca Dey MD clonazePAM (KlonoPIN) 1 mg tablet Take 1 tablet at bedtime. May have additional half tablet if unable to fall asleep. 06/11/24 Vianca Dey MD diclofenac sodium (Voltaren) 1 % gel Apply 4 g topically 4 (four) times a day as needed (left shoulder pain). 06/11/24 07/11/24 Vianca Dey MD inhalational spacing device ([facility]) spacer ATTACH SPACER TO THE ALBUTEROL INHALERWITH EACH USE. Patient not taking: Reported on 04/12/2024 Historical Provider, lancets (freestyle) 28 gauge [place] [facility] CHECK GLUCOSE ONCE PER DAY. E11.65 Patient not taking: Reported on 04/12/2024 Historical Provider, lidocaine (LIDODERM) 4 % patch Apply 1 patch topically daily as needed for mild pain (1-3) or moderate pain (4-6). Remove & discard patch within 12 hours or as directed by MD. 06/11/24 07/11/24 Vianca Dey MD melatonin 10 mg tablet Take 10 mg by mouth nightly. 06/11/24 07/11/24 Vianca Dey MD pantoprazole (PROTONIX) 40 mg EC tablet Take 1 tablet (40 mg total) by mouth daily. 06/11/24 07/11/24Vianca Dey MD QUEtiapine (SEROquel) 300 mg tablet Take 1 tablet (300 mg total) by mouth nightly. 06/11/24 07/11/24 Vianca Dey MD QUEtiapine (SEROquel) 300 mg tablet Take 1 tablet (300 mg total) by mouth nightly. 06/11/24 07/11/24 Vianca Dey MD QUEtiapine (SEROquel) 50 mg tablet Take 1 tablet qam. May take half tablet up to 3 times per day asneeded for intrusive thoughts 06/11/24 Vianca Dey MD senna (SENOKOT) 8.6 mg tablet Take 2 tablets (17.2 mg total) by mouth nightly. Hold if > 1 BM/day 06/11/24 07/11/24 Vianca Dey MD sodium chloride 1,000 mg tablet Take 1 tablet (1 g total) by mouth 3 (three) times a day with meals. 06/11/24 07/11/24 Vianca Dey MD tranylcypromine (PARNATE) 10 mg tablet Take 3 tablets (30 mg total) by mouth 2 (two) times a day. 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 Lumbar and sacral osteoarthritis Unsteady gait Schizoaffective disorder, bipolar type (CMS/HCC) Severe episode of recurrent major depressive disorder, without psychotic features (CMS/HCC) Slow transit constipation Protein-calorie malnutrition, severe (CMS/HCC) Anxiety Lumbar spondylolysis Problems with swallowing and mastication Stage 3b chronic kidney disease (CMS/HCC) Gastroesophageal reflux disease Pure hypercholesterolemia Spinal stenosis Iron deficiency anemia due to chronic blood loss Prediabetes Vitamin D deficiency Acute pancreatitis, unspecified complication status, unspecified pancreatitis type IPMN (intraductal papillary mucinous neoplasm) Hyponatremia Multiple gastric ulcers Hearing loss GI bleed Other chronic pain Suicidal ideations Severe malnutrition (CMS/HCC) Malignant neoplastic disease (CMS/HCC) Vertical diplopia Schizoaffective disorder (CMS/HCC) ROS: Pertinent items listed as per HPI. The remainder of 10 system review is negative Objective BP 128/72 (BP Location: Left arm, Patient Position: Sitting) Pulse (!) 54 Ht 5' 5 (1.651 m) Wt 127 lb (57.6 kg) SpO2 96% BMI 21.13 kg/m?? Physical Examination: General appearance: alert, male appears stated age and no distress; affect normal Skin: warm and dry, no rash Lungs: clear to ascultation throughout; good air entry bilaterally Heart: regular rate and rhythm, S1, S2 normal, no murmur, click, rub or gallop Abdomen: ND, BS normoactive, NT throughout Extremities: extremities normal, atraumatic, no edema or clubbing Assessment/Plan 78 y.o. male presenting for a transition of care visit after discharge from Diagnoses and all orders for this visit: Encounter for support and coordination of transition of care D/c summary including consultation notes, laboratory and diagnostic studies reviewed in preparationto the visit. Discharge medication list was reconciled with the current medication list in the outpatient medical record. Suicidal ideation Chronic issue worsened by intrusive thoughts and chronic pain. Patient continues to be followed with weekly therapy and psychiatric visits. Unsteady gait Lumbar spondylolysis Patient will be attending PT/OT. - Ambulatory Referral to Physical Therapy; Future - Ambulatory referral to Occupational Therapy; Future Stage 3b chronic kidney disease (CMS/HCC) Chronic condition. Will draw updated lab, further recommendations will be based on results. - Basic metabolic panel Pancytopenia (CMS/HCC) - CBC with Auto Differential Follow up in 3 months with PCP and as needed. [facility] [address] [place] [address], [address] [address] Please excuse any inadvertent errors in this note dictated from [employer] voice recognition software. Total Time Spent on Patient Care (Face to Face & Non Face to Face): 45 minutes (Includes preparing to see the patient, obtaining and/or reviewing separately obtained history, performing a medically appropriate examination and/or evaluation, counseling and educating the patient /family/caregiver, ordering medications, tests, or procedures, referring and communicating with other health post acute care nurse, documenting clinical information in the electronic record, independently interpreting results and communicating results to the patient/family/caregiver, and care coordination) Note to patient: The Cures Act requires that medical notes like this be available to patients in the interest of transparency. However, be advised this is a medical document. It is intended as peer to peer communication. It is written in medical language and may contain abbreviations or verbiage that are unfamiliar. It may appear blunt or direct. Medical documents are intended to carry relevant information, facts as evident, and the clinical opinion of the practitioner. documented in this encounter Plan of Treatment Upcoming Encounters Date Type Department Care Team (Late st Contact Info) Description 06/16/2024 Procedure [facility] [address] [place] [phone] [phone] 07/07/2024 1:30 PM EDT Appointment [address] [phone] 09/16/2024 2:00 PM EDT Office Visit [facility] [address] [facility], [address] [place] [phone] Oziel Carrington MD [address] [facility] [address] [place] [phone] 10/07/2024 2:30 PM EDT Office Visit 2nd [facility] [address] [facility] [address] [facility] 2nd floor room [address] [place] [address] [place] [address] 10/22/2024 11:00 AM EDT Appointment [facility] [address] [place] [phone] John West MD [address] [place] [address] [place] [phone] 11/03/2024 3:00 PM EDT Office Visit [facility] [address] [place] [address], [address] [place] [phone] John West MD [address] [place] [address] [place] [phone] Scheduled Referrals Name Type Priority Associated Diagnoses Orde r Schedule Ambulatory Referral to Physical Therapy Outpatient Referral Routine Unsteady gait Lumbar spondylolysis Expected: 06/16/2024, Expires: 12/17/2024 Ambulatory referral to Occupational Therapy Outpatient Referral Routine Unsteady gait Lumbar spondylolysis 1 Occurrences starting 06/16/2024 until 12/17/2024 documented as of this encounter Procedures Procedure Name Priority Date/Time Associated Diagnosis Comments CBC WITH AUTO DIFFERENTIAL Routine 06/16/2024 2:01 PM EST Pancytopenia (CMS/HCC) BASIC METABOLIC PANEL Routine 06/16/2024 2:01 PM EST Stage 3b chronic kidney disease (CMS/HCC) documented in this encounter Results * (ABNORMAL) CBC with Auto Differential (06/16/2024 2:01 PM EST) WBC 4.66 4.00 to 11.00 x 10*3u/L 10*3/uL 06/16/2024 7:20 PM EST [facility] nRBC 0 0 - 0 /100 WBCs 06/16/2024 7:20 PM EST [facility] RBC 3.21(L) 4.30 to 5.80 x 10*6/uL 10*6/uL 06/16/2024 7:20 PM EST [facility] HGB 10.3(L) 13.5 to 17.5 g/dL g/dL 06/16/2024 7:20 PM EST [facility] HCT 33.0(L) 41.0% to 53.0% % 06/16/2024 7:20 PM [facility] MCV 102.8(H) 80.0 to 94.0 fL fL 06/16/2024 7:20 PM [facility] MCH 32.1 26.0 - 33.0 pg 06/16/2024 7:20 PM [facility] MCHC 31.2 31.0 to 37.0 g/dL g/dL 06/16/2024 7:20 PM [facility] PLT 141(L) 150 to 350 x 10*3u/l 10*3u/L 06/16/2024 7:20 PM [facility] RDW-CV 13.0 11.5 - 14.5 % 06/16/2024 7:20 PM [facility] Segmented % 70.9 30.0 - 85.0 % 06/16/2024 7:20 PM [facility] ABS Neutrophil 3.30 1.20 - 9.30 10*3/uL 06/16/2024 7:20 PM [facility] Lymphocytes % 13.3(L) 15.0 - 50.0 % 06/16/2024 7:20 PM [facility] ABS Lymphocyte 0.62 0.60 - 5.50 10*3u/L 06/16/2024 7:20 PM [facility] Monocytes % 15.0(H) 2.0 - 12.0 % 06/16/2024 7:20 PM [facility] ABS Monocytes 0.70 0.08 to 1.30 x 10*3u/L 10*3/uL 06/16/2024 7:20 PM [facility] Eosinophils % 0.2 0.0 - 5.0 % 06/16/2024 7:20 PM [facility] ABS Eosinophils 0.01 0.00 to 0.68 x 10*3u/L 10*3/uL 06/16/2024 7:20 PM [facility] Basophil % 0.2 0.0 - 2.0 % 06/16/2024 7:20 PM [facility] ABS Basophils 0.01 0.00 - 0.20 10*3/uL 06/16/2024 7:20 PM EST [facility] IMM GRAN 0.4 0.0 - 1.0 % 06/16/2024 7:20 PM EST [facility] ABS IMM GRAN 0.02 0.00 - 0.10 10*3/uL 06/16/2024 7:20 PM [place] [facility] Blood Venous blood / Unknown Venipuncture / Unknown 06/16/2024 2:01 PM EST 06/16/2024 2:01 PM EST us Nadeen [facility] BLOOD ORDERABLES Final Res ult [facility] [address] [place] [address], * (ABNORMAL) Basic metabolic panel (06/16/2024 2:01 PM EST) Sodium 143 137 - 145 mmol/L 06/16/2024 7:45 PM [facility] Potassium 5.2(H) 3.5 - 5.1 mmol/L 06/16/2024 7:45 PM [facility] CHLORIDE 105 98.00 - 107.00 mmol/L 06/16/2024 7:45 PM [facility] CARBON DIOXIDE, TOTAL 27.0 22.0 - 30.0 mmol/L 06/16/2024 7:45 PM [facility] ANION GAP 11.0 6 - 14 06/16/2024 7:45 PM [facility] GLUCOSE 76 70 - 99 mg/dL 06/16/2024 7:45 PM [facility] BUN 46(H) 9 - 20 mg/dL 06/16/2024 7:45 PM [facility] CREATININE 1.1 0.7 - 1.3 mg/dL 06/16/2024 7:45 PM [facility] CALCIUM 9.5 8.3 - 10.3 mg/dL 06/16/2024 7:45 PM [facility] eGFRcr 69 06/16/2024 7:45 PM [facility] Comment: eGFR Reference Range: ? > 60 mL/min/1.73 Sq meter Blood Venous blood / Unknown Venipuncture / Unknown 06/16/2024 2:01 PM EST 06/16/2024 2:01 PM EST us Nadeen [facility] BLOOD ORDERABLES Final Res ult [facility] [address] [place] [address], documented in this encounter Visit Diagnoses Diagnosis Encounter for support and coordination of transition of care- Primary Suicidal ideation Unsteady gait Abnormality of gait Lumbar spondylolysis Lumbosacral spondylosis without myelopathy Stage 3b chronic kidney disease (CMS/HCC) Pancytopenia (CMS/HCC) documented in this encounter Care Teams Key Holder Relationship Specialty Start Date End Date Oziel Carrington MD [address] [place] [address] PCP - General Internal Medicine 10/19/22 documented as of this encounter
--- OUTSIDE RECORDS SUMMARY | 2024-06-26 20:12 | XMS_ITS | Encounter Summary ---
Author Organization [facility] Address [address] [place] [address] [address] Prov[address] Care Ct Scan Special Procedures Technologist Name Role Phone Oziel Carrington MD Primary Care Provider [phone]- [phone] Encounter Details Date Type Department Care Team (Late st Contact Info) Description 05/09/2023 Scan Document - View in Chart [facility] Department [address] [place] [phone] Provider, MD Boo [address] [place], [place] [phone] Social History Tobacco Use Types Packs/Day Years Used Date Smoking Tobacco: Never Smokeless Tobacco: Never Alcohol Use Standard Drinks/Week Comments Never 0 (1 standard drink = 0.6 oz pur e alcohol) Depression Answer Date Recorded Feeling Down, Depressed, or Hopeless 1 10/19/2022 PHQ-9 Total Score 2 10/19/2022 [place] Scale Score: Not on file Sex [...] 06/16/2024 Procedure Pass [facility] [address] [place] [phone] 07/07/2024 1:30 PM EDT Appointment [address] [phone] 09/16/2024 2:00 PM EDT Office Visit [facility] [address], [address] [place] [phone] Oziel Carrington MD [address] [place] [address] [place] [phone] 10/07/2024 2:30 PM EDT Office Visit 2nd [facility] [address] [facility] [address] [facility] 2nd floor room [address] [place] [phone] Felipe Bishop, RD [address] [place] [address] 10/22/2024 11:00 AM EDT Appointment [facility] [address] [place] [address] [phone] John West MD [address] [place] [phone] 11/03/2024 3:00 PM EDT Office Visit [facility] [address] [place] [address], [address] [place] [phone] John West MD [address] [place] [phone] documented as of this encounter Visit Diagnoses Not on filedocumented in this encounter Additional Health Concerns Infection Onset Date Last Indicated Resolved Time Highly Infectious Respirator y Virus (Rule Out) 07/24/2023 07/24/2023 07/25/2023 7:07 AM E DT Influenza 07/24/2023 07/24/2023 07/31/2023 1:52 AM EDT Highly Infectious Respirator y Virus (Rule Out) 12/13/2023 12/14/2023 12/14/2023 12:49 AM EDT Highly Infectious Respiratory Virus 06/04/202406/0406/16/2024 11:33 AM EST documented as of this encounter Care Teams Ct Scan Special Procedures Technologist Relationship Specialty Start Date End Date Oziel Carrington MD [address] [place] [phone] PCP - General Internal Medicine 10/19/22 documented as of this encounter
--- OUTSIDE RECORDS SUMMARY | 2024-06-26 20:12 | XMS_ITS | Clinical Summary ---
Author Organization [facility] Address [address] [place] [address] Care Team Providers Care Mower Sharpener Name Role Phone Oziel Beasley MD Primary Care Provider [phone] Allergies Active Allergy Reactions Criticality Noted Date Comments Gabapentin 05/17/2021 Side effects/sedation Tyramine Other (see comments) High 12/07/2020 hypertension High blood pressure Tyramine Hcl 12/07/2020 hypertension Medications * This document contains information received from the source organization and may not represent a complete record from that organization. acetaminophen (TYLENOL) 500 mg tablet Take 2 tablets (1,000 mg total) by mouth 3 (three) times a day. 180 tablet 06/11/19 25 025 Active baclofen 5 mg tablet Take 5 mg by mouth 3 (three) times a day. 90 tablet 06/11/19 25 Active clonazePAM (KlonoPIN) 1 mg tablet Take 1 tablet at bedtime. May have additional half tablet if unable to fall asleep. 45 tablet 06/11/19 25 Active diclofenac sodium (Voltaren) 1 % gel Apply 4 g topically 4 (four) times a day as needed (left shoulder pain). 50 g 06/11/19 25 025 Active lidocaine (LIDODERM) 4 % patch Apply 1 patch topically daily as needed for mild pain (1-3) or moderate pain (4-6). Remove & discard patch within 12 hours or as directed by MD. 30 patch 06/11/19 Active pantoprazole (PROTONIX) 40 mg EC tablet Take 1 tablet (40 mg total) by mouth daily. 30 tablet 06/11/19 Active QUEtiapine (SEROquel) 50 mg tablet Take 1 tablet qam. May take half tablet up to 3 times per day as needed for intrusive thoughts 60 tablet 06/11/19 Active senna (SENOKOT) 8.6 mg tablet Take 2 tablets (17.2 mg total) by mouth nightly. Hold if > 1 BM/day 60 tablet 06/11/19 Active sodium chloride 1,000 mg tablet Take 1 tablet (1 g total) by mouth 3 (three) times a day with meals. 90 tablet 06/11/19 Active tranylcypromi ne (PARNATE) 10 mg tablet Take 3 tablets (30 mg total) by mouth 3 (three) times a day. 270 tablet 06/11/19 Active QUEtiapine (SEROquel) 300 mg tablet Take 1 tablet (300 mg total) by mouth nightly. 30 tablet 06/11/19 025 Active tranylcypromi ne (PARNATE) 10 mg tablet TAKE 3 TABLETS BY MOUTH 2 TIMES A DAY. 540 tablet 1 03/02/20 24 Discontinued lancets (freestyle) 28 gauge misc CHECK GLUCOSE ONCE PER DAY. E11.65 Discontinued inhalational spacing device ([facility]) spacer ATTACH SPACER TO THE ALBUTEROL INHALER WITH EACH USE. Discontinued sodium,potass ium,mag sulfates 17.5-3.13-1.6 gram recon soln 1 BOX BY MOUTH DIRECTED PER CLINIC INSTRUCTIONS Discontinued(S top Taking at Discharge) polyethylene glycol-electr olytes (NULYTELY) 420 gram solution See admin instructions. Discontinued(S top Taking at Discharge) albuterol HFA (PROVENTIL HFA;VENTOLIN HFA) 90 mcg/actuation inhaler Inhale 2 puffs every 6 (six) hours as needed. 025 Discontinued(S top Taking at Discharge) pregabalin, bulk, 100 % powder Take 15 mg by mouth daily. 025 Discontinued(S top Taking at Discharge) clonazePAM (KlonoPIN) 1 mg tabletIndicat ions:Anxiety Take 1 tablet by mouth every day nightly and additional 1/2 tab daily PRN 45 tablet 1 03/10/20 025 Discontinued(S top Taking at Discharge) sodium chloride 1,000 mg tablet TAKE 1 TABLET (1 G TOTAL) BY MOUTH 3 (THREE) TIMES A DAY WITH MEALS. 270 tablet 3 03/16/20 24 025 Discontinued baclofen (LIORESAL) 10 mg tablet TAKE 1 TABLET BY MOUTH 3X A DAY 270 tablet 1 04/01/20 025 Discontinued(S top Taking at Discharge) pantoprazole (Protonix) 20 mg EC tablet Take 1 tablet (20 mg total) by mouth daily. 025 Discontinued(S top Taking at Discharge) oxyCODONE (ROXICODONE) 5 mg immediate release tablet Take 0.5 tablets (2.5 mg total) by mouth every 6 (six) hours as needed for severe pain (7-10) for up to 8 doses. 04/29/19 025 Discontinued(S top Taking at Discharge) melatonin 10 mg tablet Take 10 mg by mouth nightly as needed (insomnia). 30 tablet 04/29/19 025 Discontinued(S top Taking at Discharge) polyethylene glycol (GLYCOLAX) 17 gram packet Take 17 g by mouth daily as needed (constipation). 30 packet 04/29/19 025 Discontinued(S top Taking at Discharge) senna (SENOKOT) 8.6 mg tablet Take 2 tablets (17.2 mg total) by mouth nightly. Hold if > 1 BM/day 04/29/19 025 Discontinued docusate sodium (COLACE) 100 mg capsule Take 1 capsule (100 mg total) by mouth daily for 10 days. 04/30/19 025 Discontinued(S top Taking at Discharge) QUEtiapine (SEROquel) 300 mg tablet Take 1 tablet (300 mg total) by mouth nightly. 30 tablet 5 04/29/19 025 Discontinued QUEtiapine (SEROquel) 50 mg tablet 1.5 tablet at 9AM and half tablet at bedtime (together with a 300 mg tablet at bedtime). May take additional half tablet during the day as needed for anxiety 75 tablet 5 04/29/19 025 Discontinued(S top Taking at Discharge) acetaminophen (TYLENOL) 325 mg tablet Take 3 tablets (975 mg total) by mouth every 8 (eight) hours as needed for mild pain (1-3) or moderate pain (4-6) for up to 10 days. 30 tablet 04/29/19 025 Discontinued(S top Taking at Discharge) lidocaine (LIDODERM) 4 % patch Apply 1 patch topically daily as needed for mild pain (1-3) or moderate pain (4-6). Remove & discard patch within 12 hours or as directed by MD. 04/29/19 025 Discontinued diclofenac sodium (Voltaren) 1 % gel Apply 4 g topically 4 (four) times a day as needed (left shoulder pain). 04/29/19 025 Discontinued melatonin 10 mg tablet Take 10 mg by mouth nightly. 30 tablet 06/11/19 025 Discontinued(T herapy completed) QUEtiapine (SEROquel) 300 mg tablet Take 1 tablet (300 mg total) by mouth nightly. 30 tablet 06/11/19 025 Discontinued(T herapy completed) tranylcypromi ne (PARNATE) 10 mg tablet Take 3 tablets (30 mg total) by mouth 2 (two) times a day. 180 tablet 06/11/19 025 Discontinued(D uplicate order) melatonin 10 mg tablet, sublingual Take 10 mg by mouth nightly. 06/11/19 025 Discontinued(T herapy completed) diclofenac sodium (Voltaren Arthritis Pain) 1 % gel Apply 4 g topically 4 (four) times a day as needed. 025 Discontinued(T herapy completed) Active Problems Patient Care Coordination No te Formatting of this note migh t be different from the original. Discharged from [facility] 05/30-06/29/22 Home with services - [facility] with services [address] [facility] Problem Noted Date Diagnosed Date Schizoaffective disorder 04/30/2024 Severe malnutrition 02/21/2024 Other chronic pain 02/16/2024 Suicidal ideations 02/16/2024 GI bleed 12/14/2023 Assessment & Plan (03/20/2024 4:52 PM EST): # GI bleed # IBS with diarrhea and constipation # Ileus/constipation # Proctitis # Hx of colonic polyps # GERD, chronic # Nausea, intermittent - 12/06/22 - Dr Thomas GI - I think this is more constipation predominant, which is consistent with his recent imaging. The diarrhea is likely overflow. I have recommended the addition of daily MiraLAX to his bowel regimen as I think this will help to treat the constipation without causing cramping or pain, which Senokot may cause... he is due for colonoscopy at this point in time and I think it is reasonable to schedule one as he is just reaching the age at which surveillance will be discontinued... I recommend continuing the PPI and repeating his upper endoscopy along with his upcoming colonoscopy, as he has not had an EGD in 10 years. - 01/18/23 - pt stated he took miralax several weeks ago but he ended up having diarrhea from it so stopped taking it daily; yesterday had normal BM - 02/01/23 - Betty Emerson [employer]IAL [employer] REPORTER - - Experiencing discomfort in stomach, nausea, and frequent stools after taking Miralax, dulcolax and senna for constipation. Thinks he went ~6 days without a BM. Finally had BM's that were loose, multiple times a day, with some incontinence x 2 days. Last BM yesterday - Has had epigastric discomfort, nausea and took Zofran yesterday and today, with good effect. - He is eating. Had breakfast and lunch today. Appetite not affected, he says. - He has GI testing scheduled for June. Asked him to call Dr Thomas's office frequently in case there is a cancellation. Phone number given to him - 02/24/23 - Dr Villalpando - Pt called that he has worse abd pain than usual a/w some nausea for which he took zofran. He is having BM - but they are small and hard. No rectal bleeding, fevers, chills, emesis. He is able to take PO. The patient could have IBS exacerbation, dyspepsia, recurrent pancreatitis, or pain from constipation, etc. Recommended tylenol, laxative to help with BM, and gave warning signs for ED eval worsening abd pain/nausea, rectal bleeding, fevers, chills, issues with PO intake. The patient's questions were answered. The patient expressed understanding. This call will be route to the patient's primary window cutter, Dr. Thomas. - 03/06/23 - pt stated he recently had constipation for about 4 days so took miralax which then helped him to have BM but it made his stool loose so he stopped miralax and then started to have some constipation; he then took miralax which helped him have BM but stools were quite loose - cont miralax 17g qd PRN - can try using 1/2 to 3/4 instead of full dose given it sometimes makes his stools too loose/watery - try TUMS PRN when he has abd pain - cont zofran PRN - cont f/u GI Dr Thomas - pt asked our office to call GI office to see if he can have f/u sooner than the one scheduled for June 2023 - passed this on to front desk associate - 03/20/23 - urgent referral placed for colonoscopy/EGD at GI [facility] Dr Honeycutt per pt request - 05/02-05/08/23 - [facility] - illeus/constipation - CT positive for dilated large bowel loops without clear transition point. S/p enema and aggressive bowel regimen with large BM after and with improvement of abdominal symptoms. 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 Per surgery, no need of surgical intervention. By discharge, patient was having loose stools, consistent with his preexisting diagnosis of IBS. Patient declined miralax. Patient discharged with PRN senna and loperamide with goal of one BM/day. Also started on pantoprazole for potential reflux and prochlorperazine for nausea. - 05/15/23 - still having intermittent abd pain and nausea; last night had a pretty large BM - it was solid and hard; when he first wiped himself, he noted some blood, and he said he thinks it was from wiping himself so much; took some colace last night; last BM was this morning but it was just a small amount; a few days ago took a suppository and a lot came out - pt not taking miralax PRN as it sometimes makes his stools too loose/watery - recc'd trying a smaller dose daily to ensure daily BM - cont senna 17.2mg qd PRN for constipation - cont compazine 5mg q6h PRN nausea - cont loperamide PRN diarrhea - 2/2-05/21/23 - [facility] hosp - periumbilical abd pain and proctitis likely 2/2 constipation; gave enema; d/c with recc for miralax, suppsitory if unable to stool for prior day, and reglan PRN nausea; 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 and recc'd outpt MRI - 05/22/23 - pt stated he went home from hospital yesterday; had a good BM at home yesterday morning; has restarted miralax; he asked me to prescribe zofran PRN for him in case reglan PRN not adequate - cont miralax daily (taking 2/3 of a dose daily) - cont bisacodyl (Dulcolax) suppository daily as needed if did not have a BM the day before - on 05/22/23 recc'd that he take it once he gets home from appt as it has been > 24 hrs since he's had a good BM and now abd pain starting to come back - cont reglan (metoclopramide) 10mg TID PRN nausea - cont loperamide PRN diarrhea - cont pantoprazole 20mg qd - cont f/u GI Dr Thomas - have asked staff to try to help pt set up sooner appt with GI - has colonoscopy and EGD scheduled for June 2023 - 07/03-07/27/23 - hospitalized at [facility] - Patient was evaluated by GI doctor as an outpatient for chronic abdominal pain and diarrhea, suggested colonoscopy, however patient failed bowel preparation due to nausea, diarrhea, hypoglycemia, and hypotension. GI was consulted to perform an inpatient colonoscopy and endoscopy. EGD showed erosive gastritis - patient was started on PPI. Colonoscopy entailed removal of six sessile polyps. Pathology results from EGD and colonoscopy pending at time of discharge. Given patient's low BMI despite reported adequate nutrition, extensive workup for malignancy was performed, along with consultations to oncology and endocrinology teams. Co-syntropin testing was negative. CT chest showed multiple 0.2-0.3 cm solid nodules in the left lobes, which may have been present compared to 05/20/2022. Lipase elevated acutely to 900 on 07/15 from chronic elevation in the 300s. CTAP w/ contrast on 07/16 did not show pancreatitis. CEA was mildly elevated at 3.29. CA 19-9 was 15 (WNL). Free insulin level normal. Patient's CBC was stable after the EGD and colonoscopy. He was cleared for discharge with recommendation for outpatient GI follow-up. - 08/05/23 - two days ago hadn't had BM for a few days so took a full dose of miralax but it was too much so it made him go in his underwear - pt interested in talking to diet assistant about electrolyte abnormalities and gastritis prevention - referred 08/05/23 - cont miralax daily (taking 2/3 of a dose daily) - 08/13/23 - Nereyda CHRISTENSEN - recc taking miralax full dose qOd - 08/30/23 - Dr Thomas said no need for GI f/u - 09/20/23 - recently has been having small to moderate amount of BM 1-2 times a day; he stated when he took miralax full dose qOd, he had constipation; when he took miralax full dose qd he had diarrhea; has been taking miralax 3/4 dose daily - 12/12-12/15/23 - [facility] - presented with a fall and an episode of producing dark phlegm, admitted due to concern for UGIB, but ultimately determined not to be the case. He was also hypotensive and bradycardic, concerning for a possible heart block, but hypotension did not recur after a fluid bolus in the ED, and his heart rhythm was determined to be sinus bradycardia. He was discharged back home without additional services (already sees PT, OT, SW, and has SOOT BLOWER) - At admission he reported coughing dark-colored corea/black sputum and his stool was guaiac+. His H&H and BP remained stable, and he had no episodes of melena or dark phlegm during the admission. He was evaluated by GI, and his presentation was determined not consistent with UGIB. He should have an EGD in the outpatient setting, given his history. The etiology of this episode is altogether unclear but likely related to his large hiatal hernia. He is discharged with an increase in his home PPI dose, given his recent postprandial discomfort. Otherwise, this could be related to his chronic phlegm in throat (on problem list) for which he has been evaluated by ENT and thought to be post-nasal drip. - 12/20/23 - pt stated he still has some abd pain and possible GI bleed and interested in outpt EGD as recc'd by inpatient team - refer back to GI for eval and outpt EGD as recc'd by inpatient team - 02/10/24 - EGD Dr Shoemaker - erosive gastropathy, biopsied; use protonix 20mg qd - 02/16/24 - Dr Shoemaker msg - Your biopsies of the stomach are not concerning at all. The stomach ulcer has healed and we can reduce your Pantoprazole to 20 mg once daily. Please follow up with Dr. Beasley. - 03/20/24 - continues to have abd pain intermittently; taking pantoprazole 20mg qd; he will call GI to set up f/u - cont miralax 3/4 dose daily - cont pantoprazole 20mg qd - can add TUMS PRN heartburn - cont bisacodyl (Dulcolax) suppository daily as needed if did not have a BM the day before - cont reglan (metoclopramide) 10mg TID PRN nausea - cont loperamide PRN diarrhea - cont f/u GI Dr Thomas Assessment & Plan (12/20/2023 6:13 PM EDT): # GI bleed # IBS with diarrhea and constipation # Ileus/constipation # Proctitis # Hx of colonic polyps # GERD, chronic # Nausea, intermittent - 12/06/22 - Dr Thomas GI - I think this is more constipation predominant, which is consistent with his recent imaging. The diarrhea is likely overflow. I have recommended the addition of daily MiraLAX to his bowel regimen as I think this will help to treat the constipation without causing cramping or pain, which Senokot may cause... he is due for colonoscopy at this point in time and I think it is reasonable to schedule one as he is just reaching the age at which surveillance will be discontinued... I recommend continuing the PPI and repeating his upper endoscopy along with his upcoming colonoscopy, as he has not had an EGD in 10 years. - 01/18/23 - pt stated he took miralax several weeks ago but he ended up having diarrhea from it so stopped taking it daily; yesterday had normal BM - 02/01/23 - Betty Emerson [employer]ICIAL [employer] REPORTER - - Experiencing discomfort in stomach, nausea, and frequent stools after taking Miralax, dulcolax and senna for constipation. Thinks he went ~6 days without a BM. Finally had BM's that were loose, multiple times a day, with some incontinence x 2 days. Last BM yesterday - Has had epigastric discomfort, nausea and took Zofran yesterday and today, with good effect. - He is eating. Had breakfast and lunch today. Appetite not affected, he says. - He has GI testing scheduled for June. Asked him to call Dr Thomas's office frequently in case there is a cancellation. Phone number given to him - 02/24/23 - Dr Villalpando - Pt called that he has worse abd pain than usual a/w some nausea for which he took zofran. He is having BM - but they are small and hard. No rectal bleeding, fevers, chills, emesis. He is able to take PO. The patient could have IBS exacerbation, dyspepsia, recurrent pancreatitis, or pain from constipation, etc. Recommended tylenol, laxative to help with BM, and gave warning signs for ED eval worsening abd pain/nausea, rectal bleeding, fevers, chills, issues with PO intake. The patient's questions were answered. The patient expressed understanding. This call will be route to the patient's primary window cutter, Dr. Thomas. - 03/06/23 - pt stated he recently had constipation for about 4 days so took miralax which then helped him to have BM but it made his stool loose so he stopped miralax and then started to have some constipation; he then took miralax which helped him have BM but stools were quite loose - cont miralax 17g qd PRN - can try using 1/2 to 3/4 instead of full dose given it sometimes makes his stools too loose/watery - try TUMS PRN when he has abd pain - cont zofran PRN - cont f/u GI Dr Thomas - pt asked our office to call GI office to see if he can have f/u sooner than the one scheduled for June 2023 - passed this on to front desk associate - 03/20/23 - urgent referral placed for colonoscopy/EGD at GI [facility] Dr Honeycutt per pt request - 05/02-05/08/23 - [facility] hosp - illeus/constipation - CT positive for dilated large bowel loops without clear transition point. S/p enema and aggressive bowel regimen with large BM after and with improvement of abdominal symptoms. 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 Per surgery, no need of surgical intervention. By discharge, patient was having loose stools, consistent with his preexisting diagnosis of IBS. Patient declined miralax. Patient discharged with PRN senna and loperamide with goal of one BM/day. Also started on pantoprazole for potential reflux and prochlorperazine for nausea. - 05/15/23 - still having intermittent abd pain and nausea; last night had a pretty large BM - it was solid and hard; when he first wiped himself, he noted some blood, and he said he thinks it was from wiping himself so much; took some colace last night; last BM was this morning but it was just a small amount; a few days ago took a suppository and a lot came out - pt not taking miralax PRN as it sometimes makes his stools too loose/watery - recc'd trying a smaller dose daily to ensure daily BM - cont senna 17.2mg qd PRN for constipation - cont compazine 5mg q6h PRN nausea - cont loperamide PRN diarrhea - 2/2-05/21/23 - [facility] hosp - periumbilical abd pain and proctitis likely 2/2 constipation; gave enema; d/c with recc for miralax, suppsitory if unable to stool for prior day, and reglan PRN nausea; 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 and recc'd outpt MRI - 05/22/23 - pt stated he went home from hospital yesterday; had a good BM at home yesterday morning; has restarted miralax; he asked me to prescribe zofran PRN for him in case reglan PRN not adequate - cont miralax daily (taking 2/3 of a dose daily) - cont bisacodyl (Dulcolax) suppository daily as needed if did not have a BM the day before - on 05/22/23 recc'd that he take it once he gets home from appt as it has been > 24 hrs since he's had a good BM and now abd pain starting to come back - cont reglan (metoclopramide) 10mg TID PRN nausea - cont loperamide PRN diarrhea - cont pantoprazole 20mg qd - cont f/u GI Dr Thomas - have asked staff to try to help pt set up sooner appt with GI - has colonoscopy and EGD scheduled for June 2023 - 07/03-07/27/23 - hospitalized at [facility] - Patient was evaluated by GI doctor as an outpatient for chronic abdominal pain and diarrhea, suggested colonoscopy, however patient failed bowel preparation due to nausea, diarrhea, hypoglycemia, and hypotension. GI was consulted to perform an inpatient colonoscopy and endoscopy. EGD showed erosive gastritis - patient was started on PPI. Colonoscopy entailed removal of six sessile polyps. Pathology results from EGD and colonoscopy pending at time of discharge. Given patient's low BMI despite reported adequate nutrition, extensive workup for malignancy was performed, along with consultations to oncology and endocrinology teams. Co-syntropin testing was negative. CT chest showed multiple 0.2-0.3 cm solid nodules in the left lobes, which may have been present compared to 05/20/2022. Lipase elevated acutely to 900 on 07/15 from chronic elevation in the 300s. CTAP w/ contrast on 07/16 did not show pancreatitis. CEA was mildly elevated at 3.29. CA 19-9 was 15 (WNL). Free insulin level normal. Patient's CBC was stable after the EGD and colonoscopy. He was cleared for discharge with recommendation for outpatient GI follow-up. - 08/05/23 - two days ago hadn't had BM for a few days so took a full dose of miralax but it was too much so it made him go in his underwear - pt interested in talking to diet assistant about electrolyte abnormalities and gastritis prevention - referred 08/05/23 - cont miralax daily (taking 2/3 of a dose daily) - 08/13/23 - Nereyda CHRISTENSEN - recc taking miralax full dose qOd - 08/30/23 - Dr Thomas said no need for GI f/u - 09/20/23 - recently has been having small to moderate amount of BM 1-2 times a day; he stated when he took miralax full dose qOd, he had constipation; when he took miralax full dose qd he had diarrhea; has been taking miralax 3/4 dose daily - 12/12-12/15/23 - [facility] hosp - presented with a fall and an episode of producing dark phlegm, admitted due to concern for UGIB, but ultimately determined not to be the case. He was also hypotensive and bradycardic, concerning for a possible heart block, but hypotension did not recur after a fluid bolus in the ED, and his heart rhythm was determined to be sinus bradycardia. He was discharged back home without additional services (already sees PT, OT, SW, and has SOOT BLOWER) - At admission he reported coughing dark-colored corea/black sputum and his stool was guaiac+. His H&H and BP remained stable, and he had no episodes of melena or dark phlegm during the admission. He was evaluated by GI, and his presentation was determined not consistent with UGIB. He should have an EGD in the outpatient setting, given his history. The etiology of this episode is altogether unclear but likely related to his large hiatal hernia. He is discharged with an increase in his home PPI dose, given his recent postprandial discomfort. Otherwise, this could be related to his chronic phlegm in throat (on problem list) for which he has been evaluated by ENT and thought to be post-nasal drip. - 12/20/23 - pt stated he still has some abd pain and possible GI bleed and interested in outpt EGD as recc'd by inpatient team - refer back to GI for eval and outpt EGD as recc'd by inpatient team - cont miralax 3/4 dose daily - cont pantoprazole 20mg qd - can add TUMS PRN heartburn - cont bisacodyl (Dulcolax) suppository daily as needed if did not have a BM the day before - cont reglan (metoclopramide) 10mg TID PRN nausea - cont loperamide PRN diarrhea - cont f/u GI Dr Thomas Hearing loss 09/20/2023 Assessment & Plan (09/20/2023 5:16 PM EDT): - 09/20/23 - pt stated he recently had hearing eval and was recc'd to get hearing aids; he asked for reccs of where to get hearing aids - recc'd he check out [employer] for hearing aids Vertical diplopia 08/25/2023 Multiple gastric ulcers 07/22/2023 Hyponatremia 07/04/2023 Assessment & Plan (03/20/2024 4:52 PM EST): # Hyponatremia, hypo-osmolar # Hyperkalemia - 07/03-07/27/23 - [facility] hospitalization - Patient presented with a sodium of 119 in the setting of multiple episodes of diarrhea from bowel preparation for colonoscopy. Urine studies consistent with hypovolemic hyponatremia. Patient received IV fluids which corrected his sodium. Urine studies 07/08 showed urine Na 136, suggestive of SIADH. Hyponatremia resolved with urine studies consistent with SIADH. EKG unchanged. Renal was consulted and per recommendations patient was discharged on Lokelma once daily, salt tabs TID, and recommendation for renal outpatient follow up for further workup of his electrolyte abnormalities. He was also recommended to have weekly labs in the outpatient setting to monitor his electrolytes. He was hemodynamically stable and medically cleared for discharge home on 07/26. - pt interested in talking to diet assistant about electrolyte abnormalities and gastritis prevention - referred 08/05/23 - 08/14/23 - Dr Hill - recently hypovolemic hypo-osmolar hyponatremia improved w/ IVF. F/U labs today. Cont salt tabs - 08/19/23 - Na 138, K 4.4 - 10/25/23 - diet assistant Dr Bishop - Added fats to meals - butter, oils Gradually increase foods with fiber - caputo tomatoes, fruit - berries, pear, vegetables, high fiber cereal, continue Miralax Try to have meals earlier to enable time for snacks between meals - add kcal- dense snacks - cashews, any nut, yogurt w/granola - get higher fat yogurt, humus with bread, protein drink-Ensure Plus or Glucerna daily Aim for 2 snacks each day - 11/11/23 - Dr Hill -cont salt tabs - 12/15/23 - Na 141, K 4.7 - 12/23/23 - Na 139 - cont salt tabs TID - cont f/u promotions executive producer Dr Hill Assessment & Plan (12/20/2023 6:13 PM EDT): # Hyponatremia, hypo-osmolar # Hyperkalemia - 07/03-07/27/23 - [facility] hospitalization - Patient presented with a sodium of 119 in the setting of multiple episodes of diarrhea from bowel preparation for colonoscopy. Urine studies consistent with hypovolemic hyponatremia. Patient received IV fluids which corrected his sodium. Urine studies 07/08 showed urine Na 136, suggestive of SIADH. Hyponatremia resolved with urine studies consistent with SIADH. EKG unchanged. Renal was consulted and per recommendations patient was discharged on Lokelma once daily, salt tabs TID, and recommendation for renal outpatient follow up for further workup of his electrolyte abnormalities. He was also recommended to have weekly labs in the outpatient setting to monitor his electrolytes. He was hemodynamically stable and medically cleared for discharge home on 07/26. - pt interested in talking to diet assistant about electrolyte abnormalities and gastritis prevention - referred 08/05/23 - 08/14/23 - Dr Hill - recently hypovolemic hypo-osmolar hyponatremia improved w/ IVF. F/U labs today. Cont salt tabs - 08/19/23 - Na 138, K 4.4 - 10/25/23 - diet assistant Dr Bishop - Added fats to meals - butter, oils Gradually increase foods with fiber - caputo tomatoes, fruit - berries, pear, vegetables, high fiber cereal, continue Miralax Try to have meals earlier to enable time for snacks between meals - add kcal- dense snacks - cashews, any nut, yogurt w/granola - get higher fat yogurt, humus with bread, protein drink-Ensure Plus or Glucerna daily Aim for 2 snacks each day - 11/11/23 - Dr Hill -cont salt tabs - 12/15/23 - Na 141, K 4.7 - 12/20/23 - check BMP - cont salt tabs TID - cont f/u promotions executive producer Dr Hill Assessment & Plan (09/20/2023 5:14 PM EDT): # Hyponatremia, hypo-osmolar # Hyperkalemia - 07/03-07/27/23 - [facility] hospitalization - Patient presented with a sodium of 119 in the setting of multiple episodes of diarrhea from bowel preparation for colonoscopy. Urine studies consistent with hypovolemic hyponatremia. Patient received IV fluids which corrected his sodium. Urine studies 07/08 showed urine Na 136, suggestive of SIADH. Hyponatremia resolved with urine studies consistent with SIADH. EKG unchanged. Renal was consulted and per recommendations patient was discharged on Lokelma once daily, salt tabs TID, and recommendation for renal outpatient follow up for further workup of his electrolyte abnormalities. He was also recommended to have weekly labs in the outpatient setting to monitor his electrolytes. He was hemodynamically stable and medically cleared for discharge home on 07/26. - pt interested in talking to diet assistant about electrolyte abnormalities and gastritis prevention - referred 08/05/23 - 08/14/23 - Dr Hill - recently hypovolemic hypo-osmolar hyponatremia improved w/ IVF. F/U labs today. Cont salt tabs - 08/19/23 - Na 138, K 4.4 - cont salt tabs TID - cont f/u promotions executive producer Dr Hill - has appt 11/11/23 - has appt with diet assistant Dr Bishop 10/25/23 Assessment & Plan (08/05/2023 5:20 PM EDT): # Hyponatremia # Hyperkalemia - 07/03-07/27/23 - [facility] hospitalization - Patient presented with a sodium of 119 in the setting of multiple episodes of diarrhea from bowel preparation for colonoscopy. Urine studies consistent with hypovolemic hyponatremia. Patient received IV fluids which corrected his sodium. Urine studies 07/08 showed urine Na 136, suggestive of SIADH. Hyponatremia resolved with urine studies consistent with SIADH. EKG unchanged. Renal was consulted and per recommendations patient was discharged on Lokelma once daily, salt tabs TID, and recommendation for renal outpatient follow up for further workup of his electrolyte abnormalities. He was also recommended to have weekly labs in the outpatient setting to monitor his electrolytes. He was hemodynamically stable and medically cleared for discharge home on 07/26. - 08/05/23 - check BMP - pt interested in talking to diet assistant about electrolyte abnormalities and gastritis prevention - referred 08/05/23 - cont salt tabs TID, lokelma 10mg qd - has f/u appt with promotions executive producer Dr Hill on 08/14/23 IPMN (intraductal papillary mucinous neoplasm) 0 05/22/2023 Assessment & Plan (12/20/2023 6:20 PM EDT): - 05/17/23 - CT Abd/pelvis - Rectal wall thickening and perirectal edema suggestive of proctitis. Large colon stool burden with stool in the ileum suggesting slow transit. Low-density lesions in the pancreas that could represent intraductal papillary mucinous neoplasms. Recommend outpatient pancreas MRI with MRCP if not already performed elsewhere. - 05/21/23 - Dr Ibanez on D/C summary - Incidental finding on pancreas, likely IPMN. 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 No solid pancreatic mass or main duct dilatation. Recommend MRCP every 2 years for 10 years of stability. Decision to discontinue imaging follow-up after 80 years of age should be anchored to the patient's overall health and preferences. - 12/20/23 - recent D/C summary from [facility] hospitalization noted incidental finding on CT 12/14/23 - Pancreas / pancreatic duct: Cystic lesions within the pancreatic body measuring up to 1.1 cm represent side branch type intraductal papillary mucinous neoplasms and are unchanged from abdominal MRI dated 06/12/2023. No peripancreatic fat stranding. No ductal dilatation - plan to repeat MRCP in 2025 per radiology reccs - cont f/u Dr Thomas GI Assessment & Plan (08/05/2023 5:22 PM EDT): - 05/17/23 - CT Abd/pelvis - Rectal wall thickening and perirectal edema suggestive of proctitis. Large colon stool burden with stool in the ileum suggesting slow transit. Low-density lesions in the pancreas that could represent intraductal papillary mucinous neoplasms. Recommend outpatient pancreas MRI with MRCP if not already performed elsewhere. - 05/21/23 - Dr Ibanez on D/C summary - Incidental finding on pancreas, likely IPMN. 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 No solid pancreatic mass or main duct dilatation. Recommend MRCP every 2 years for 10 years of stability. Decision to discontinue imaging follow-up after 80 years of age should be anchored to the patient's overall health and preferences. - plan to repeat in 05/2025 - cont f/u Dr Thomas GI Assessment & Plan (05/22/2023 6:02 PM EST): - 05/17/23 - CT Abd/pelvis - Rectal wall thickening and perirectal edema suggestive of proctitis. Large colon stool burden with stool in the ileum suggesting slow transit. Low-density lesions in the pancreas that could represent intraductal papillary mucinous neoplasms. Recommend outpatient pancreas MRI with MRCP if not already performed elsewhere. - 05/21/23 - Dr Ibanez on D/C summary - Incidental finding on pancreas, likely IPMN. Found on CT imaging (copied below) Recommend outpatient MRI - ordered outpatient MRI / MRCP Acute pancreatitis, unspecif ied complication status, unspecified pancreatitis type 01/12/2023 Assessment & Plan (05/15/2023 5:07 PM EST): # Acute Pancreatitis or enteritis - hospitalized at [facility] 01/11-01/16/23 - D/C summary not yet available but per progress note from Dr Hall on 01/16/23 - 77 y.o. male with admission for abdominal pain, findings not definitive but support either pancreatitis or enteritis. He has a lipase over three times the upper limit of normal, initial pain was epigastric, but liver chemistries unremarkable, pancreas normal on CT, no gallstones or alcohol use. Had scattered air-fluid levels on CT with mesenteric fat stranding and some pelvic free fluid, supporting enteritis. Either of these could be present secondary to the other, but I suspect enteritis with inflammation spreading to the pancreas, as he has no alcohol use or gallstones, or chronic/recurrent pancreatitis. Treatment of each, with stool studies unrevealing and no ongoing inflammatory/infectious signs, is supportive, with diet advancement as tolerated, pain control, antiemetics, IV fluids. Now taking a full low-fat diet, ambulating well. Stable for discharge today. Health care proxy updated by phone. - 01/16/23 - lipase 1031 - 01/18/23 - pt denied any abd pain, nausea, vomiting, diarrhea; he feels the sxs that brought him into hospital have completely resolved - 02/01/23 - lipase 328 (slightly H, RR 23-300), CRP < 5.0 - 03/06/23 - sometimes has nausea and abd pain after he eats; zofran helps with nausea - 05/15/23 - still having nausea and abd that tends to happen after he eats but can happen at other times too - cont compazine PRN nausea - cont to monitor Assessment & Plan (03/06/2023 5:34 PM EST): # Acute Pancreatitis or enteritis - hospitalized at [facility] 01/11-01/16/23 - D/C summary not yet available but per progress note from Dr Hall on 01/16/23 - 77 y.o. male with admission for abdominal pain, findings not definitive but support either pancreatitis or enteritis. He has a lipase over three times the upper limit of normal, initial pain was epigastric, but liver chemistries unremarkable, pancreas normal on CT, no gallstones or alcohol use. Had scattered air-fluid levels on CT with mesenteric fat stranding and some pelvic free fluid, supporting enteritis. Either of these could be present secondary to the other, but I suspect enteritis with inflammation spreading to the pancreas, as he has no alcohol use or gallstones, or chronic/recurrent pancreatitis. Treatment of each, with stool studies unrevealing and no ongoing inflammatory/infectious signs, is supportive, with diet advancement as tolerated, pain control, antiemetics, IV fluids. Now taking a full low-fat diet, ambulating well. Stable for discharge today. Health care proxy updated by phone. - 01/16/23 - lipase 1031 - 01/18/23 - pt denied any abd pain, nausea, vomiting, diarrhea; he feels the sxs that brought him into hospital have completely resolved - 02/01/23 - lipase 328 (slightly H, RR 23-300), CRP < 5.0 - 03/06/23 - sometimes has nausea and abd pain after he eats; zofran helps with nausea - cont to monitor Assessment & Plan (02/01/2023 5:43 PM EDT): Re-check labs today including amylase, lipase and CRP Assessment & Plan (01/18/2023 4:54 PM EDT): # Pancreatitis or enteritis - hospitalized at [facility] 01/11-01/16/23 - D/C summary not yet available but per progress note from Dr Hall on 01/16/23 - 77 y.o. male with admission for abdominal pain, findings not definitive but support either pancreatitis or enteritis. He has a lipase over three times the upper limit of normal, initial pain was epigastric, but liver chemistries unremarkable, pancreas normal on CT, no gallstones or alcohol use. Had scattered air-fluid levels on CT with mesenteric fat stranding and some pelvic free fluid, supporting enteritis. Either of these could be present secondary to the other, but I suspect enteritis with inflammation spreading to the pancreas, as he has no alcohol use or gallstones, or chronic/recurrent pancreatitis. Treatment of each, with stool studies unrevealing and no ongoing inflammatory/infectious signs, is supportive, with diet advancement as tolerated, pain control, antiemetics, IV fluids. Now taking a full low-fat diet, ambulating well. Stable for discharge today. Health care proxy updated by phone. - 01/18/23 - pt denied any abd pain, nausea, vomiting, diarrhea; he feels the sxs that brought him into hospital have completely resolved - cont to monitor Spinal stenosis 10/19/2022 Assessment & Plan (03/20/2024 4:51 PM EST): # Spinal stenosis of lumbar region without neurogenic claudication # Chronic back pain # Kyphoscoliosis and scoliosis # L shoulder pain - 09/03/22 - Dr Cheung - presents for follow up chronic pain. He c/o pain in shoulder and back. This has gotten worse. Leans on this side a lot. He had facet injections but no results so doesn't qualify for ablation. He wants to return to see Dr Reyes. - 10/03/22 - Dr Melgar - From a clinical perspective, still complains of pain increasing now in his low back. He says pain starts close to his waist posteriorly, radiates around the left side to his front. No pain down the legs. It bothers him primarily with standing or walking. He is fine lying down and has limited complaints of pain when sitting on a soft sofa. However, sitting on a hard chair, prolonged standing and/or walking increases his pain symptoms... He has correlation with his symptoms, exam and findings of the MRI with significant neuroforaminal stenosis at L1-2 and L2-3 on the left. He has other lower lumbar/lumbosacral spondylitic changes with various degrees of neuroforaminal narrowing bilaterally. Most areas of concern are at L1-2 and L2-3. Based upon this recommendation is for a trial of an epidural steroid injection to decrease inflammation that will subsequently help decrease the pain. I have given Liu a handout that describes what the injection would entail. We also did talk about his having seen Dr. Daniel Reyes for consideration of spinal surgery. He still leaves this open as an option. He will call me back if he decides to go ahead with the MADHU. No change in medications at this time. - 10/19/22 - pain is worse on lower left back and goes around L flank to L lower stomach; also has pain in L shoulder; pain is worse in the morning when he gets up; pt stated saw Dr Reyes about 5 weeks ago and he recc'd surgery; he doesn't think baclofen helps much; not taking lidocaine patch as insurance didn't cover it and the small and medium size didn't cover the whole area and wasn't as helpful as large size and he didn't realize he could use up to 3 patches next to each other to cover the area - pt plans to pursue epidural steroid injection by Dr Melgar and if it doesn't help to get spinal surgery by Dr Reyes - he called Dr Melgar's office yesterday to schedule and is waiting to hear back on a date - 10/31/22 - back pain worse with injection; can try tylenol 1g TID, lidocaine patch, asper cream, and consider surg with Dr Reyes - 12/05/22 - Dr Melgar - awaiting MADHU, suggested he get back in touch with Dr Reyes for possible surgery if MADHU does not help - 12/13/22 - Dr Adkins - performed Left L2-L3 epidural steroid injection - 12/26/22 - Dr Josefina Coe PM&R at [place] - We had a long discussion about referral to our functional congregational program with goals to help teach patient coping strategies in order to be more functional with day-to-day activities. The patient was amenable to referral to physical therapy, occupational therapy, and psychology evaluation for possible neuromuscular re-education. After evaluations are completed, we will discuss this case in team meeting and make recommendations for the appropriate level of care. - 01/18/23 - pt stated he needs PT at [place] to do a test to see if a device for back pain can work - pt stated he saw Dr Paz at [facility] who gave him a shot in L shoulder; he stated the shot in L shoulder wasn't helpful and that Dr Paz told him the next step would be shoulder replacement - put in PT/OT referral to [facility] per his request - 03/06/23 - pt stated ~3 weeks ago he met with therapist and SW at [facility] but is still waiting for them to call him back with plan of care - pt will call PT/OT at [facility] to see when they want to work with him - 05/15/23 - pt stated that before hospitalization he was working with PT/OT at [facility] and asked that I put in another referral so he could work with them again; he prefers going there than having home PT/OT - refer to PT/OT at [facility] - 04/21/23 - was hospitalized at [facility] 05/17-05/21/23; saw home PT via [facility]; working with Alexsandra Sheldon PT, DPT at [facility] PT and then plans to go to [facility] to work with their PT once no longer needs home PT - 08/05/23 - pt would like to go back to see outpt PT/OT at [facility] for back pain and shoulder pain; said lidocaine patch very difficult to use so would like to try lidocaine cream instead; pt would like a 2nd opinion on L shoulder - 08/19/23 - Nereyda CHRISTENSEN - visit - she asked about lyrica - said ok to try lowest dose 25mg qHS for now - 09/20/23 - pt feels pain in lower back is worse, yg on L side; also having some pain on L shoulder; has been working with home PT past 4 wks; has appt at [facility] next work; taking tylenol 500mg TID; he stated he will try biofreeze or therapain topical - has an appt with outpt PT/OT at [facility] next week - increase tylenol from 500mg TID to 1000mg TID - cont baclofen 10mg BID - cont lidocaine cream BID PRN - can consider lyrica 25mg qHS in the future - 11/29/23 - Ana Tes [employer] REPORTER - increase Lyrica to 50 mg BID - this is max dose cont with Biofreeze and [facility] pain clinic recs pending 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 After the patient is seen at the pain clinic, we can return to Dr. Melgar to discuss the next step. - 12/10/23 - Nereyda CHRISTENSEN - -Continues to experience worsening pain despite recent increased dose of Lyrica -Concern for Lyrica plus clonazepam causing recent episode of respiratory distress -Per chart review, concern that patient may be inappropriately dosing Lyrica -Advised patient to return to 50 mg total per day instead of 50 mg BID given that he has not noticed improvement of pain but has experienced potential serious adverse side effects -Patient scheduled to meet with pain specialist at [place] next week -Will look into additional pain management options and research other pain specialists -Counseled patient to continue reaching out to Dr. Melgar, sent secure direct message via imageloop to Dr. Melgar -Provided patient with list of other orthopedic/spine specialists - 12/10/23 - Dr Melgar ph call - I spoke with Liu today. We did discuss the findings of the x-rays that show slight increase listhesis at L1-2. Also discussed the limitations he has in pain medications. Concerns for poor interactions with other medications he is on. I have suggested a trial of physical therapy and use of a TENS unit. If this is helpful I can order him 1. I also called Dr. Reyes's office and they said they will reach out to him to try to get him in sooner. Apparently he had refused surgery in the past. He tells me now he is willing to try surgery. I will speak to him next week to see how he does with the TENS unit hopefully. He does say Biofreeze helps and he should continue that for now. No other medications he has tried have helped. These all have been non-opioids. - 12/20/23 - pt stated pain from L shoulder has spread down L arm and pain from lower left back has spread down to left leg; it has made it harder for him to walk; taking lyrica 50mg daily which he doesn't think helps much; he stated the physical therapist tried TENS unit on his shoulder and back and it might have helped a little on his shoulder. Sees outpt PT, OT, MD MAURY (Dr Bahena) at [facility] in [place]. Pt asked about opioids. Recc'd discussing with his pain specialist. - cont outpt PT, OT, MD MAURY (Dr Bahena) at [facility] in [place] - pt stated he has appt with Dr Melgar next week - 12/23/23 - pt plans to meet with another back surgeon for 2nd opinion of whether to get surgery - 02/11/24 - pt interested in rheum refer; wait till visit with 02/12/24 for further eval first - 02/12/24 - Nereyda said pain med [facility] duloxetine instead of pregabalin so she reached out to psychiatry to get their thoughts - 02/17/24 - could try duloxetine instead of pregabalin; could ask him to f/u psych - 03/10/24 - painOnel Dawn [facility] f/u pain specialist - 03/16/24 - Dr Jim Christensen [facility] - presenting for evaluation of back pain in the setting of scoliosis - spinal spondylosis as well as shoulder pain in the setting for arthritis. Patient was last seen in the clinic on 02/04/2024 and underwent a left SIJ and GTB injection as well as trigger point injections - notes no benefit from the injection. Today he notes that he has pain in his shoulder, described as a sharp pain, sometimes in his upper forearm. No neuropathic symptoms in his left arm otherwise. Takes PO tylenol TID, doesnot find it to be beneficial. He also notes some pain is his left abdomen. Feels like a sharp, deep pain. No radiation. Denies any fever, urinary symptoms, no association with pain. No constipation. Of note patient was recently admitted to the hospital for concern for suicidal ideation in February this year. Notes that he is doing okay from that standpoint - is currently on seroquel, parnate. He works with a therapist weekly and has a psychiatrist as well. Notes that pain sometimes increases his negative thoughts. - Consider medial branch blocks in future Patient is on psychiatric medication with potential interactions with other medications and would need close follow up if new medications are initiated. Will reach out to PCP to co-ordinate medication management. NSAIDs - Not a good candidate d/t Hx of GI bleed, CKD. Gabapentinoids - tried in past, not a good candidate given psych hx. SNRIs - risk of serotonin syndrome Will have an assessment with our pain psychologist, as our interventions are not going to be beneficial till we work on controlling mood and its effects on pain Ordered for abdominal xray for abdominal pain, will follow up with PCP - Shoulder pain : Will plan for intra-articular shoulder injection Orthopedics referral provided - 03/20/24 - still having pain in left shoulder, left arm, left lower back with radiation to abdomen, left leg, right side of waist; has f/u with Dr Christensen 03/24/24 and will also be meeting with Dr Cruz on that date as well; he stated he also has an appt with surgeon Dr Reyes next week to again discuss surgery; he is thinking of surgery as previously recc'd by Dr Reyes - cont tylenol 1g TID - cont lyrica 50mg qd - cont baclofen 10mg TID - cont biofreeze gel - cont f/u Dr Jim Christensen anesthesiology pain med at [facility] - has f/u 03/24/24 - cont f/u Dr Lexis Bahena PM&R at [place] - cont f/u Dr Melgar PM&R - cont f/u Dr Daniel Reyes surgeon at [facility] - cont f/u Dr Paz at [facility] for L shoulder Assessment & Plan (12/20/2023 6:12 PM EDT): # Spinal stenosis of lumbar region without neurogenic claudication # Chronic back pain # Kyphoscoliosis and scoliosis # L shoulder pain - 09/03/22 - Dr Cheung - presents for follow up chronic pain. He c/o pain in shoulder and back. This has gotten worse. Leans on this side a lot. He had facet injections but no results so doesn't qualify for ablation. He wants to return to see Dr Reyes. - 10/03/22 - Dr Melgar - From a clinical perspective, still complains of pain increasing now in his low back. He says pain starts close to his waist posteriorly, radiates around the left side to his front. No pain down the legs. It bothers him primarily with standing or walking. He is fine lying down and has limited complaints of pain when sitting on a soft sofa. However, sitting on a hard chair, prolonged standing and/or walking increases his pain symptoms... He has correlation with his symptoms, exam and findings of the MRI with significant neuroforaminal stenosis at L1-2 and L2-3 on the left. He has other lower lumbar/lumbosacral spondylitic changes with various degrees of neuroforaminal narrowing bilaterally. Most areas of concern are at L1-2 and L2-3. Based upon this recommendation is for a trial of an epidural steroid injection to decrease inflammation that will subsequently help decrease the pain. I have given Liu a handout that describes what the injection would entail. We also did talk about his having seen Dr. Daniel Reyes for consideration of spinal surgery. He still leaves this open as an option. He will call me back if he decides to go ahead with the MADHU. No change in medications at this time. - 10/19/22 - pain is worse on lower left back and goes around L flank to L lower stomach; also has pain in L shoulder; pain is worse in the morning when he gets up; pt stated saw Dr Reyes about 5 weeks ago and he recc'd surgery; he doesn't think baclofen helps much; not taking lidocaine patch as insurance didn't cover it and the small and medium size didn't cover the whole area and wasn't as helpful as large size and he didn't realize he could use up to 3 patches next to each other to cover the area - pt plans to pursue epidural steroid injection by Dr Melgar and if it doesn't help to get spinal surgery by Dr Reyes - he called Dr Melgar's office yesterday to schedule and is waiting to hear back on a date - 10/31/22 - back pain worse with injection; can try tylenol 1g TID, lidocaine patch, asper cream, and consider surg with Dr Reyes - 12/05/22 - Dr Melgar - awaiting MADHU, suggested he get back in touch with Dr Reyes for possible surgery if MADHU does not help - 12/13/22 - Dr Adkins - performed Left L2-L3 epidural steroid injection - 12/26/22 - Dr Josefina Coe PM&R at [place] - We had a long discussion about referral to our functional congregational program with goals to help teach patient coping strategies in order to be more functional with day-to-day activities. The patient was amenable to referral to physical therapy, occupational therapy, and psychology evaluation for possible neuromuscular re-education. After evaluations are completed, we will discuss this case in team meeting and make recommendations for the appropriate level of care. - 01/18/23 - pt stated he needs PT at [place] to do a test to see if a device for back pain can work - pt stated he saw Dr Paz at [facility] who gave him a shot in L shoulder; he stated the shot in L shoulder wasn't helpful and that Dr Paz told him the next step would be shoulder replacement - put in PT/OT referral to [facility] per his request - 03/06/23 - pt stated ~3 weeks ago he met with therapist and SW at [facility] but is still waiting for them to call him back with plan of care - pt will call PT/OT at [facility] to see when they want to work with him - 05/15/23 - pt stated that before hospitalization he was working with PT/OT at [facility] and asked that I put in another referral so he could work with them again; he prefers going there than having home PT/OT - refer to PT/OT at [facility] - 04/21/23 - was hospitalized at [facility] 05/17-05/21/23; saw home PT via [facility] dimple; working with Alexsandra Sheldon PT, DPT at [facility] PT and then plans to go to [facility] to work with their PT once no longer needs home PT - 08/05/23 - pt would like to go back to see outpt PT/OT at [facility] for back pain and shoulder pain; said lidocaine patch very difficult to use so would like to try lidocaine cream instead; pt would like a 2nd opinion on L shoulder - 08/19/23 - Nereyda CHRISTENSEN - visit - she asked about lyrica - said ok to try lowest dose 25mg qHS for now - 09/20/23 - pt feels pain in lower back is worse, yg on L side; also having some pain on L shoulder; has been working with home PT past 4 wks; has appt at [facility] next work; taking tylenol 500mg TID; he stated he will try biofreeze or therapain topical - has an appt with outpt PT/OT at [facility] next week - increase tylenol from 500mg TID to 1000mg TID - cont baclofen 10mg BID - cont lidocaine cream BID PRN - can consider lyrica 25mg qHS in the future - 11/29/23 - Ana Tse [employer] RE[employer]TER - increase Lyrica to 50 mg BID - this is max dose cont with Biofreeze and [facility] pain clinic recs pending 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 After the patient is seen at the pain clinic, we can return to Dr. Melgar to discuss the next step. - 12/10/23 - Nereyda CHRISTENSEN - -Continues to experience worsening pain despite recent increased dose of Lyrica -Concern for Lyrica plus clonazepam causing recent episode of respiratory distress -Per chart review, concern that patient may be inappropriately dosing Lyrica -Advised patient to return to 50 mg total per day instead of 50 mg BID given that he has not noticed improvement of pain but has experienced potential serious adverse side effects -Patient scheduled to meet with pain specialist at [place] next week -Will look into additional pain management options and research other pain specialists -Counseled patient to continue reaching out to Dr. Melgar, sent secure direct message via imageloop to Dr. Melgar -Provided patient with list of other orthopedic/spine specialists - 12/10/23 - Dr Melgar ph call - I spoke with Liu today. We did discuss the findings of the x-rays that show slight increase listhesis at L1-2. Also discussed the limitations he has in pain medications. Concerns for poor interactions with other medications he is on. I have suggested a trial of physical therapy and use of a TENS unit. If this is helpful I can order him 1. I also called Dr. Reyes's office and they said they will reach out to him to try to get him in sooner. Apparently he had refused surgery in the past. He tells me now he is willing to try surgery. I will speak to him next week to see how he does with the TENS unit hopefully. He does say Biofreeze helps and he should continue that for now. No other medications he has tried have helped. These all have been non-opioids. - 12/20/23 - pt stated pain from L shoulder has spread down L arm and pain from lower left back has spread down to left leg; it has made it harder for him to walk; taking lyrica 50mg daily which he doesn't think helps much; he stated the physical therapist tried TENS unit on his shoulder and back and it might have helped a little on his shoulder. Sees outpt PT, OT, MD MAURY (Dr Bahena) at [facility] in [place]. Pt asked about opioids. Recc'd discussing with his pain specialist. - cont outpt PT, OT, MD MAURY (Dr Bahena) at [facility] in [place] - pt stated he has appt with Dr Melgar next week - 12/23/23 - pt plans to meet with another back surgeon for 2nd opinion of whether to get surgery - cont tylenol 1g TID - cont lyrica 50mg qd - cont baclofen 10mg TID - cont biofreeze gel - cont f/u Dr Lexis Bahena PM&R at [place] - cont f/u Dr Melgar PM&R - cont f/u Dr Daniel Reyes surgeon at [facility] - cont f/u Dr Paz at [facility] for L shoulder Assessment & Plan (09/20/2023 5:13 PM EDT): # Spinal stenosis of lumbar region without neurogenic claudication # Chronic back pain # Kyphoscoliosis and scoliosis # L shoulder pain - 09/03/22 - Dr Cheung - presents for follow up chronic pain. He c/o pain in shoulder and back. This has gotten worse. Leans on this side a lot. He had facet injections but no results so doesn't qualify for ablation. He wants to return to see Dr Reyes. - 10/03/22 - Dr Melgar - From a clinical perspective, still complains of pain increasing now in his low back. He says pain starts close to his waist posteriorly, radiates around the left side to his front. No pain down the legs. It bothers him primarily with standing or walking. He is fine lying down and has limited complaints of pain when sitting on a soft sofa. However, sitting on a hard chair, prolonged standing and/or walking increases his pain symptoms... He has correlation with his symptoms, exam and findings of the MRI with significant neuroforaminal stenosis at L1-2 and L2-3 on the left. He has other lower lumbar/lumbosacral spondylitic changes with various degrees of neuroforaminal narrowing bilaterally. Most areas of concern are at L1-2 and L2-3. Based upon this recommendation is for a trial of an epidural steroid injection to decrease inflammation that will subsequently help decrease the pain. I have given Liu a handout that describes what the injection would entail. We also did talk about his having seen Dr. Daniel Reyes for consideration of spinal surgery. He still leaves this open as an option. He will call me back if he decides to go ahead with the MADHU. No change in medications at this time. - 10/19/22 - pain is worse on lower left back and goes around L flank to L lower stomach; also has pain in L shoulder; pain is worse in the morning when he gets up; pt stated saw Dr Reyes about 5 weeks ago and he recc'd surgery; he doesn't think baclofen helps much; not taking lidocaine patch as insurance didn't cover it and the small and medium size didn't cover the whole area and wasn't as helpful as large size and he didn't realize he could use up to 3 patches next to each other to cover the area - pt plans to pursue epidural steroid injection by Dr Melgar and if it doesn't help to get spinal surgery by Dr Reyes - he called Dr Melgar's office yesterday to schedule and is waiting to hear back on a date - 10/31/22 - back pain worse with injection; can try tylenol 1g TID, lidocaine patch, asper cream, and consider surg with Dr Reyes - 12/05/22 - Dr Melgar - awaiting MADHU, suggested he get back in touch with Dr Reyes for possible surgery if MADHU does not help - 12/13/22 - Dr Adikns - performed Left L2-L3 epidural steroid injection - 12/26/22 - Dr Josefina Coe PM&R at [place] - We had a long discussion about referral to our functional congregational program with goals to help teach patient coping strategies in order to be more functional with day-to-day activities. The patient was amenable to referral to physical therapy, occupational therapy, and psychology evaluation for possible neuromuscular re-education. After evaluations are completed, we will discuss this case in team meeting and make recommendations for the appropriate level of care. - 01/18/23 - pt stated he needs PT at [place] to do a test to see if a device for back pain can work - pt stated he saw Dr Paz at [facility] who gave him a shot in L shoulder; he stated the shot in L shoulder wasn't helpful and that Dr Paz told him the next step would be shoulder replacement - put in PT/OT referral to [facility] per his request - 03/06/23 - pt stated ~3 weeks ago he met with therapist and SW at [facility] but is still waiting for them to call him back with plan of care - pt will call PT/OT at [facility] to see when they want to work with him - 05/15/23 - pt stated that before hospitalization he was working with PT/OT at [facility] and asked that I put in another referral so he could work with them again; he prefers going there than having home PT/OT - refer to PT/OT at [facility] - 04/21/23 - was hospitalized at [facility] 2-05/21/23; saw home PT via [facility] tday; working with Alexsandra Sheldon PT, DPT at [facility] PT and then plans to go to [facility] to work with their PT once no longer needs home PT - 08/05/23 - pt would like to go back to see outpt PT/OT at [facility] for back pain and shoulder pain; said lidocaine patch very difficult to use so would like to try lidocaine cream instead; pt would like a 2nd opinion on L shoulder - 5/6/24 - Nereyda CHRISTENSEN - visit - she asked about lyrica - said ok to try lowest dose 25mg qHS for now - 09/20/23 - pt feels pain in lower back is worse, yg on L side; also having some pain on L shoulder; has been working with home PT past 4 wks; has appt at [facility] next work; taking tylenol 500mg TID; he stated he will try biofreeze or therapain topical - has an appt with outpt PT/OT at [facility] next week - increase tylenol from 500mg TID to 1000mg TID - cont baclofen 10mg BID - cont lidocaine cream BID PRN - can consider lyrica 25mg qHS in the future - cont f/u Dr Josefina Coe PM&R at [place] - cont f/u Dr Melgar PM&R - cont f/u Dr Daniel Reyes surgeon at [facility] - cont f/u Dr Paz at [facility] for L shoulder Assessment & Plan (08/05/2023 5:22 PM EDT): # Spinal stenosis of lumbar region without neurogenic claudication # Chronic back pain # Kyphoscoliosis and scoliosis # L shoulder pain - 09/03/22 - Dr Cheung - presents for follow up chronic pain. He c/o pain in shoulder and back. This has gotten worse. Leans on this side a lot. He had facet injections but no results so doesn't qualify for ablation. He wants to return to see Dr Reyes. - 10/03/22 - Dr Melgar - From a clinical perspective, still complains of pain increasing now in his low back. He says pain starts close to his waist posteriorly, radiates around the left side to his front. No pain down the legs. It bothers him primarily with standing or walking. He is fine lying down and has limited complaints of pain when sitting on a soft sofa. However, sitting on a hard chair, prolonged standing and/or walking increases his pain symptoms... He has correlation with his symptoms, exam and findings of the MRI with significant neuroforaminal stenosis at L1-2 and L2-3 on the left. He has other lower lumbar/lumbosacral spondylitic changes with various degrees of neuroforaminal narrowing bilaterally. Most areas of concern are at L1-2 and L2-3. Based upon this recommendation is for a trial of an epidural steroid injection to decrease inflammation that will subsequently help decrease the pain. I have given Liu a handout that describes what the injection would entail. We also did talk about his having seen Dr. Daniel Reyes for consideration of spinal surgery. He still leaves this open as an option. He will call me back if he decides to go ahead with the MADHU. No change in medications at this time. - 10/19/22 - pain is worse on lower left back and goes around L flank to L lower stomach; also has pain in L shoulder; pain is worse in the morning when he gets up; pt stated saw Dr Reyes about 5 weeks ago and he recc'd surgery; he doesn't think baclofen helps much; not taking lidocaine patch as insurance didn't cover it and the small and medium size didn't cover the whole area and wasn't as helpful as large size and he didn't realize he could use up to 3 patches next to each other to cover the area - pt plans to pursue epidural steroid injection by Dr Melgar and if it doesn't help to get spinal surgery by Dr Reyes - he called Dr Melgar's office yesterday to schedule and is waiting to hear back on a date - 10/31/22 - back pain worse with injection; can try tylenol 1g TID, lidocaine patch, asper cream, and consider surg with Dr Reyes - 12/05/22 - Dr Melgar - awaiting MADHU, suggested he get back in touch with Dr Reyes for possible surgery if MADHU does not help - 12/13/22 - Dr Adkins - performed Left L2-L3 epidural steroid injection - 01/18/23 - pt stated he needs PT at [place] to do a test to see if a device for back pain can work - pt stated he saw Dr Paz at [facility] who gave him a shot in L shoulder; he stated the shot in L shoulder wasn't helpful and that Dr Paz told him the next step would be shoulder replacement - put in PT/OT referral to [facility] per his request - 03/06/23 - pt stated ~3 weeks ago he met with therapist and SW at [facility] but is still waiting for them to call him back with plan of care - pt will call PT/OT at [facility] to see when they want to work with him - 05/15/23 - pt stated that before hospitalization he was working with PT/OT at [facility] and asked that I put in another referral so he could work with them again; he prefers going there than having home PT/OT - refer to PT/OT at [facility] - 04/21/23 - was hospitalized at [facility] 05/17-05/21/23; saw home PT via [facility] tday; working with Alexsandra Sheldon PT, DPT at [facility] PT and then plans to go to [facility] to work with their PT once no longer needs home PT - 08/05/23 - pt would like to go back to see outpt PT/OT at [facility] for back pain and shoulder pain; said lidocaine patch very difficult to use so would like to try lidocaine cream instead; pt would like a 2nd opinion on L shoulder - cont f/u Dr Melgar PM&R - recc'd he set up f/u soon - cont f/u Dr Daniel Reyes surgeon at [facility] - cont f/u Dr Paz at [facility] for L shoulder - cont tylenol 1g TID - cont baclofen 10mg BID - cont lidocaine cream BID PRN Assessment & Plan (05/22/2023 6:01 PM EST): # Spinal stenosis of lumbar region without neurogenic claudication # Chronic back pain # Kyphoscoliosis and scoliosis # L shoulder pain - 09/03/22 - Dr Cheung - presents for follow up chronic pain. He c/o pain in shoulder and back. This has gotten worse. Leans on this side a lot. He had facet injections but no results so doesn't qualify for ablation. He wants to return to see Dr Reyes. - 10/03/22 - Dr Melgar - From a clinical perspective, still complains of pain increasing now in his low back. He says pain starts close to his waist posteriorly, radiates around the left side to his front. No pain down the legs. It bothers him primarily with standing or walking. He is fine lying down and has limited complaints of pain when sitting on a soft sofa. However, sitting on a hard chair, prolonged standing and/or walking increases his pain symptoms... He has correlation with his symptoms, exam and findings of the MRI with significant neuroforaminal stenosis at L1-2 and L2-3 on the left. He has other lower lumbar/lumbosacral spondylitic changes with various degrees of neuroforaminal narrowing bilaterally. Most areas of concern are at L1-2 and L2-3. Based upon this recommendation is for a trial of an epidural steroid injection to decrease inflammation that will subsequently help decrease the pain. I have given Liu a handout that describes what the injection would entail. We also did talk about his having seen Dr. Daniel Reyes for consideration of spinal surgery. He still leaves this open as an option. He will call me back if he decides to go ahead with the MADHU. No change in medications at this time. - 10/19/22 - pain is worse on lower left back and goes around L flank to L lower stomach; also has pain in L shoulder; pain is worse in the morning when he gets up; pt stated saw Dr Reyes about 5 weeks ago and he recc'd surgery; he doesn't think baclofen helps much; not taking lidocaine patch as insurance didn't cover it and the small and medium size didn't cover the whole area and wasn't as helpful as large size and he didn't realize he could use up to 3 patches next to each other to cover the area - pt plans to pursue epidural steroid injection by Dr Melgar and if it doesn't help to get spinal surgery by Dr Reyes - he called Dr Melgar's office yesterday to schedule and is waiting to hear back on a date - 10/31/22 - back pain worse with injection; can try tylenol 1g TID, lidocaine patch, asper cream, and consider surg with Dr Reyes - 12/05/22 - Dr Melgar - awaiting MADHU, suggested he get back in touch with Dr Reyes for possible surgery if MADHU does not help - 12/13/22 - Dr Adkins - performed Left L2-L3 epidural steroid injection - 01/18/23 - pt stated he needs PT at [place] to do a test to see if a device for back pain can work - pt stated he saw Dr Paz at [facility] who gave him a shot in L shoulder; he stated the shot in L shoulder wasn't helpful and that Dr Paz told him the next step would be shoulder replacement - put in PT/OT referral to [facility] per his request - 03/06/23 - pt stated ~3 weeks ago he met with therapist and SW at [facility] but is still waiting for them to call him back with plan of care - pt will call PT/OT at [facility] to see when they want to work with him - 05/15/23 - pt stated that before hospitalization he was working with PT/OT at [facility] and asked that I put in another referral so he could work with them again; he prefers going there than having home PT/OT - refer to PT/OT at [facility] - 04/21/23 - was hospitalized at [facility] 05/17-05/21/23; saw home PT via [facility] tday; working with Alexsandra Sheldon PT, DPT at [facility] PT and then plans to go to [facility] to work with their PT once no longer needs home PT - cont f/u Dr Melgar PM&R - recc'd he set up f/u soon - cont f/u Dr Daniel Reyes surgeon at [facility] - cont f/u Dr Paz at [facility] for L shoulder - cont tylenol 1g TID - cont baclofen 10mg BID - cont lidocaine patch qd Assessment & Plan (05/15/2023 5:07 PM EST): # Spinal stenosis of lumbar region without neurogenic claudication # Chronic back pain # Kyphoscoliosis and scoliosis # L shoulder pain - 09/03/22 - Dr Cheung - presents for follow up chronic pain. He c/o pain in shoulder and back. This has gotten worse. Leans on this side a lot. He had facet injections but no results so doesn't qualify for ablation. He wants to return to see Dr Reyes. - 10/03/22 - Dr Melgar - From a clinical perspective, still complains of pain increasing now in his low back. He says pain starts close to his waist posteriorly, radiates around the left side to his front. No pain down the legs. It bothers him primarily with standing or walking. He is fine lying down and has limited complaints of pain when sitting on a soft sofa. However, sitting on a hard chair, prolonged standing and/or walking increases his pain symptoms... He has correlation with his symptoms, exam and findings of the MRI with significant neuroforaminal stenosis at L1-2 and L2-3 on the left. He has other lower lumbar/lumbosacral spondylitic changes with various degrees of neuroforaminal narrowing bilaterally. Most areas of concern are at L1-2 and L2-3. Based upon this recommendation is for a trial of an epidural steroid injection to decrease inflammation that will subsequently help decrease the pain. I have given Liu a handout that describes what the injection would entail. We also did talk about his having seen Dr. Daniel Reyes for consideration of spinal surgery. He still leaves this open as an option. He will call me back if he decides to go ahead with the MADHU. No change in medications at this time. - 10/19/22 - pain is worse on lower left back and goes around L flank to L lower stomach; also has pain in L shoulder; pain is worse in the morning when he gets up; pt stated saw Dr Reyes about 5 weeks ago and he recc'd surgery; he doesn't think baclofen helps much; not taking lidocaine patch as insurance didn't cover it and the small and medium size didn't cover the whole area and wasn't as helpful as large size and he didn't realize he could use up to 3 patches next to each other to cover the area - pt plans to pursue epidural steroid injection by Dr Melgar and if it doesn't help to get spinal surgery by Dr Reyes - he called Dr Melgar's office yesterday to schedule and is waiting to hear back on a date - 10/31/22 - back pain worse with injection; can try tylenol 1g TID, lidocaine patch, asper cream, and consider surg with Dr Reyes - 12/05/22 - Dr Melgar - awaiting MADHU, suggested he get back in touch with Dr Reyes for possible surgery if MADHU does not help - 12/13/22 - Dr Adkins - performed Left L2-L3 epidural steroid injection - 01/18/23 - pt stated he needs PT at [place] to do a test to see if a device for back pain can work - pt stated he saw Dr Paz at [facility] who gave him a shot in L shoulder; he stated the shot in L shoulder wasn't helpful and that Dr Paz told him the next step would be shoulder replacement - put in PT/OT referral to [facility] per his request - 03/06/23 - pt stated ~3 weeks ago he met with therapist and SW at [facility] but is still waiting for them to call him back with plan of care - pt will call PT/OT at [facility] to see when they want to work with him - 05/15/23 - pt stated that before hospitalization he was working with PT/OT at [facility] and asked that I put in another referral so he could work with them again; he prefers going there than having home PT/OT - refer to PT/OT at [facility] - cont f/u Dr Melgar PM&R - recc'd he set up f/u soon - cont f/u Dr Daniel Reyes surgeon at [facility] - cont f/u Dr Paz at [facility] for L shoulder - cont tylenol 1g TID - cont baclofen 10mg BID - cont lidocaine patch qd Assessment & Plan (03/06/2023 5:35 PM EST): # Spinal stenosis of lumbar region without neurogenic claudication # Chronic back pain # Kyphoscoliosis and scoliosis # L shoulder pain - 09/03/22 - Dr Cheung - presents for follow up chronic pain. He c/o pain in shoulder and back. This has gotten worse. Leans on this side a lot. He had facet injections but no results so doesn't qualify for ablation. He wants to return to see Dr Reyes. - 10/03/22 - Dr Melgar - From a clinical perspective, still complains of pain increasing now in his low back. He says pain starts close to his waist posteriorly, radiates around the left side to his front. No pain down the legs. It bothers him primarily with standing or walking. He is fine lying down and has limited complaints of pain when sitting on a soft sofa. However, sitting on a hard chair, prolonged standing and/or walking increases his pain symptoms... He has correlation with his symptoms, exam and findings of the MRI with significant neuroforaminal stenosis at L1-2 and L2-3 on the left. He has other lower lumbar/lumbosacral spondylitic changes with various degrees of neuroforaminal narrowing bilaterally. Most areas of concern are at L1-2 and L2-3. Based upon this recommendation is for a trial of an epidural steroid injection to decrease inflammation that will subsequently help decrease the pain. I have given Liu a handout that describes what the injection would entail. We also did talk about his having seen Dr. Daniel Reyes for consideration of spinal surgery. He still leaves this open as an option. He will call me back if he decides to go ahead with the MADHU. No change in medications at this time. - 10/19/22 - pain is worse on lower left back and goes around L flank to L lower stomach; also has pain in L shoulder; pain is worse in the morning when he gets up; pt stated saw Dr Reyes about 5 weeks ago and he recc'd surgery; he doesn't think baclofen helps much; not taking lidocaine patch as insurance didn't cover it and the small and medium size didn't cover the whole area and wasn't as helpful as large size and he didn't realize he could use up to 3 patches next to each other to cover the area - pt plans to pursue epidural steroid injection by Dr Melgar and if it doesn't help to get spinal surgery by Dr Reyes - he called Dr Melgar's office yesterday to schedule and is waiting to hear back on a date - 10/31/22 - back pain worse with injection; can try tylenol 1g TID, lidocaine patch, asper cream, and consider surg with Dr Reyes - 12/05/22 - Dr Melgar - awaiting MADHU, suggested he get back in touch with Dr Reyes for possible surgery if MADHU does not help - 12/13/22 - Dr Adkins - performed Left L2-L3 epidural steroid injection - 01/18/23 - pt stated he needs PT at [place] to do a test to see if a device for back pain can work - pt stated he saw Dr Paz at [facility] who gave him a shot in L shoulder; he stated the shot in L shoulder wasn't helpful and that Dr Paz told him the next step would be shoulder replacement - put in PT/OT referral to [facility] per his request - 03/06/23 - pt stated ~3 weeks ago he met with therapist and SW at [facility] but is still waiting for them to call him back with plan of care - pt will call PT/OT at [facility] to see when they want to work with him - cont f/u Dr Melgar PM&R - cont f/u Dr Daniel Reyes surgeon at [facility] - cont f/u Dr Paz at [facility] for L shoulder - cont tylenol 1g TID - cont baclofen 10mg BID - cont lidocaine patch qd Assessment & Plan (01/18/2023 4:55 PM EDT): # Spinal stenosis of lumbar region without neurogenic claudication # Chronic back pain # Kyphoscoliosis and scoliosis # L shoulder pain - 09/03/22 - Dr Cheung - presents for follow up chronic pain. He c/o pain in shoulder and back. This has gotten worse. Leans on this side a lot. He had facet injections but no results so doesn't qualify for ablation. He wants to return to see Dr Reyes. - 10/03/22 - Dr Melgar - From a clinical perspective, still complains of pain increasing now in his low back. He says pain starts close to his waist posteriorly, radiates around the left side to his front. No pain down the legs. It bothers him primarily with standing or walking. He is fine lying down and has limited complaints of pain when sitting on a soft sofa. However, sitting on a hard chair, prolonged standing and/or walking increases his pain symptoms... He has correlation with his symptoms, exam and findings of the MRI with significant neuroforaminal stenosis at L1-2 and L2-3 on the left. He has other lower lumbar/lumbosacral spondylitic changes with various degrees of neuroforaminal narrowing bilaterally. Most areas of concern are at L1-2 and L2-3. Based upon this recommendation is for a trial of an epidural steroid injection to decrease inflammation that will subsequently help decrease the pain. I have given Liu a handout that describes what the injection would entail. We also did talk about his having seen Dr. Daniel Reyes for consideration of spinal surgery. He still leaves this open as an option. He will call me back if he decides to go ahead with the MADHU. No change in medications at this time. - 10/19/22 - pain is worse on lower left back and goes around L flank to L lower stomach; also has pain in L shoulder; pain is worse in the morning when he gets up; pt stated saw Dr Reyes about 5 weeks ago and he recc'd surgery; he doesn't think baclofen helps much; not taking lidocaine patch as insurance didn't cover it and the small and medium size didn't cover the whole area and wasn't as helpful as large size and he didn't realize he could use up to 3 patches next to each other to cover the area - pt plans to pursue epidural steroid injection by Dr Melgar and if it doesn't help to get spinal surgery by Dr Reyes - he called Dr Melgar's office yesterday to schedule and is waiting to hear back on a date - 10/31/22 - back pain worse with injection; can try tylenol 1g TID, lidocaine patch, asper cream, and consider surg with Dr Reyes - 12/05/22 - Dr Melgar - awaiting MADHU, suggested he get back in touch with Dr Reyes for possible surgery if MADHU does not help - 12/13/22 - Dr Adkins - performed Left L2-L3 epidural steroid injection - 01/18/23 - pt stated he needs PT at [place] to do a test to see if a device for back pain can work - pt stated he saw Dr Paz at [facility] who gave him a shot in L shoulder; he stated the shot in L shoulder wasn't helpful and that Dr Paz told him the next step would be shoulder replacement - put in PT/OT referral to [facility] per his request - cont f/u Dr Melgar PM&R - cont f/u Dr Daniel Reyes surgeon at [facility] - cont f/u Dr Paz at [facility] for L shoulder - cont tylenol 1g TID - cont baclofen 10mg BID - cont lidocaine patch qd Assessment & Plan (10/19/2022 1:16 PM EDT): # Spinal stenosis of lumbar region without neurogenic claudication # Chronic back pain # Kyphoscoliosis and scoliosis # L shoulder pain - 09/03/22 - Dr Cheung - presents for follow up chronic pain. He c/o pain in shoulder and back. This has gotten worse. Leans on this side a lot. He had facet injections but no results so doesn't qualify for ablation. He wants to return to see Dr Reyes. - 10/03/22 - Dr Melgar - From a clinical perspective, still complains of pain increasing now in his low back. He says pain starts close to his waist posteriorly, radiates around the left side to his front. No pain down the legs. It bothers him primarily with standing or walking. He is fine lying down and has limited complaints of pain when sitting on a soft sofa. However, sitting on a hard chair, prolonged standing and/or walking increases his pain symptoms... He has correlation with his symptoms, exam and findings of the MRI with significant neuroforaminal stenosis at L1-2 and L2-3 on the left. He has other lower lumbar/lumbosacral spondylitic changes with various degrees of neuroforaminal narrowing bilaterally. Most areas of concern are at L1-2 and L2-3. Based upon this recommendation is for a trial of an epidural steroid injection to decrease inflammation that will subsequently help decrease the pain. I have given Liu a handout that describes what the injection would entail. We also did talk about his having seen Dr. Daniel Reyes for consideration of spinal surgery. He still leaves this open as an option. He will call me back if he decides to go ahead with the MADHU. No change in medications at this time. - 10/19/22 - pain is worse on lower left back and goes around L flank to L lower stomach; also has pain in L shoulder; pain is worse in the morning when he gets up; pt stated saw Dr Reyes about 5 weeks ago and he recc'd surgery; he doesn't think baclofen helps much; not taking lidocaine patch as insurance didn't cover it and the small and medium size didn't cover the whole area and wasn't as helpful as large size and he didn't realize he could use up to 3 patches next to each other to cover the area - pt plans to pursue epidural steroid injection by Dr Melgar and if it doesn't help to get spinal surgery by Dr Reyes - he called Dr Melgar's office yesterday to schedule and is waiting to hear back on a date - cont f/u Dr Melgar PM&R - cont f/u Dr Daniel Reyes surgeon at [facility] - increase tylenol 1g BID to 1g TID - cont baclofen 10mg BID - re-prescribe lidocaine patch daily 12 hours per day, remove for 12 hours - he will fill if insurance covers it - refer to [facility] for L shoulder pain Iron deficiency anemia due to chronic blood loss 10/19/2022 Assessment & Plan (03/20/2024 4:53 PM EST): - 05/20/22 - Tsat 8%, Hgb 9.0 - 08/06/22 - Tsat 14%, Hgb 9.6 - 08/07/22 - Tsat 8%, Hgb 9.3 - 02/01/23 - Hgb 10.2 - 07/03-07/27/23 - hospitalized at [facility] - Patient had pancytopenia throughout this admission, which had also been noted on prior labs. Ddx included iatrogenic effect of quetiapine vs malignancy. SPEP was unremarkable. Patient was evaluated by hematology inpatient who recommended that he follow up with their clinic after discharge for consideration of bone marrow biopsy. - Patient had labs consistent with chronic blood loss, based on his EGD results this was likely from PUD. He was repleted with IV venofer. - 07/27/23 - Hgb 8.3 - 08/05/23 - Hgb 9.4 (from 8.3) - 12/15/23 - Hgb 10.3 - 02/12/24 - Hgb 10.9 - cont ferrous gluconate 324mg qOD Assessment & Plan (12/20/2023 6:13 PM EDT): - 05/20/22 - Tsat 8%, Hgb 9.0 - 08/06/22 - Tsat 14%, Hgb 9.6 - 08/07/22 - Tsat 8%, Hgb 9.3 - 02/01/23 - Hgb 10.2 - 07/03-07/27/23 - hospitalized at [facility] - Patient had pancytopenia throughout this admission, which had also been noted on prior labs. Ddx included iatrogenic effect of quetiapine vs malignancy. SPEP was unremarkable. Patient was evaluated by hematology inpatient who recommended that he follow up with their clinic after discharge for consideration of bone marrow biopsy. - Patient had labs consistent with chronic blood loss, based on his EGD results this was likely from PUD. He was repleted with IV venofer. - 07/27/23 - Hgb 8.3 - 08/05/23 - Hgb 9.4 (from 8.3) - 12/15/23 - Hgb 10.3 - 12/20/23 - check CBC - cont ferrous gluconate 324mg qOD Assessment & Plan (09/20/2023 5:15 PM EDT): # Iron deficiency anemia - 05/20/22 - Tsat 8%, Hgb 9.0 - 08/06/22 - Tsat 14%, Hgb 9.6 - 08/07/22 - Tsat 8%, Hgb 9.3 - 02/01/23 - Hgb 10.2 - 07/03-07/27/23 - hospitalized at [facility] - Patient had pancytopenia throughout this admission, which had also been noted on prior labs. Ddx included iatrogenic effect of quetiapine vs malignancy. SPEP was unremarkable. Patient was evaluated by hematology inpatient who recommended that he follow up with their clinic after discharge for consideration of bone marrow biopsy. - Patient had labs consistent with chronic blood loss, based on his EGD results this was likely from PUD. He was repleted with IV venofer. - 07/27/23 - Hgb 8.3 - 08/05/23 - Hgb 9.4 (from 8.3) - cont ferrous gluconate 324mg qOD Assessment & Plan (08/05/2023 5:21 PM EDT): # Iron deficiency anemia - 05/20/22 - Tsat 8%, Hgb 9.0 - 08/06/22 - Tsat 14%, Hgb 9.6 - 08/07/22 - Tsat 8%, Hgb 9.3 - 02/01/23 - Hgb 10.2 - 07/03-07/27/23 - hospitalized at [facility] - Patient had pancytopenia throughout this admission, which had also been noted on prior labs. Ddx included iatrogenic effect of quetiapine vs malignancy. SPEP was unremarkable. Patient was evaluated by hematology inpatient who recommended that he follow up with their clinic after discharge for consideration of bone marrow biopsy. - Patient had labs consistent with chronic blood loss, based on his EGD results this was likely from PUD. He was repleted with IV venofer. - 07/27/23 - Hgb 8.3 - 08/05/23 - check CBC - cont ferrous gluconate 324mg qOD Assessment & Plan (01/18/2023 4:56 PM EDT): - 05/20/22 - Tsat 8%, Hgb 9.0 - 08/06/22 - Tsat 14%, Hgb 9.6 - 08/07/22 - Tsat 8%, Hgb 9.3 - cont ferrous gluconate 324mg qOD Assessment & Plan (11/27/2022 5:09 PM EDT): He is on iron qod Some improvement on last check No black or bloody stool, ? Inadequate nutrition Check CBC Assessment & Plan (10/19/2022 1:24 PM EDT): - 05/20/22 - Tsat 8%, Hgb 9.0 - 08/06/22 - Tsat 14%, Hgb 9.6 - 08/07/22 - Tsat 8%, Hgb 9.3 - cont ferrous gluconate 324mg qOD Prediabetes 10/19/2022 Assessment & Plan (09/20/2023 5:15 PM EDT): - 03/29/22 - A1c 5.8% - 08/02/22 - A1c 5.5%, no longer in prediabetes range; LDL 89 - 01/13/23 - A1c 5.8% - 08/05/23 - A1c 4.8% - cont to monitor Assessment & Plan (08/05/2023 5:22 PM EDT): - 03/29/22 - A1c 5.8% - 08/02/22 - A1c 5.5%, no longer in prediabetes range; LDL 89 - 01/13/23 - A1c 5.8% - 08/05/23 - check A1c Assessment & Plan (10/19/2022 1:24 PM EDT): - 03/29/22 - A1c 5.8% - 08/02/22 - A1c 5.5%, no longer in prediabetes range; LDL 89 Vitamin D deficiency 10/19/2022 Assessment & Plan (10/19/2022 1:24 PM EDT): - cont Vit D 1000U qd Stage 3b chronic kidney disease 07/11/2022 Assessment & Plan (03/20/2024 4:52 PM EST): - 01/03/23 - Dr Starla Hill - Stay well hydrated. Increase fluid intake. Invest in a reusable water bottle. STOP taking omeprazole. Let us know if your reflux symptoms worsen. - 07/27/23 - Na 131, K 4.1, Cr 0.8, GFR 91 - 08/14/23 - Dr Hill - no proteinuria (not on RAASi) -risk factors: DM, malnutrition including poor PO intake, BPH, likely single functioning kidney (Atrophic right kidney noted since 2021) -Goal is to minimize risk factors. -Encourage p.o. intake including protein & fluids. -We discussed the progression of CKD and his prognosis given age, risk factors - 08/19/23 - Na 138, K 4.4, Cr 1.2, GFR 59 - 11/11/23 - Dr Hill - Tough situation: when not hydrated, then sCr tends to bump up and when he drinks too much, sodium gets worse. Encourage p.o. intake including protein & fluids. - 12/15/23 - Na 141, K 4.7 - 12/20/23 - Cr 1.3 - cont f/u promotions executive producer Dr Hill Assessment & Plan (12/20/2023 6:13 PM EDT): # CKD 3 - 01/03/23 - Dr Starla Hill - Stay well hydrated. Increase fluid intake. Invest in a reusable water bottle. STOP taking omeprazole. Let us know if your reflux symptoms worsen. - 07/27/23 - Na 131, K 4.1, Cr 0.8, GFR 91 - 08/14/23 - Dr Hill - no proteinuria (not on RAASi) -risk factors: DM, malnutrition including poor PO intake, BPH, likely single functioning kidney (Atrophic right kidney noted since 2021) -Goal is to minimize risk factors. -Encourage p.o. intake including protein & fluids. -We discussed the progression of CKD and his prognosis given age, risk factors - 08/19/23 - Na 138, K 4.4, Cr 1.2, GFR 59 - 11/11/23 - Dr Hill - Tough situation: when not hydrated, then sCr tends to bump up and when he drinks too much, sodium gets worse. Encourage p.o. intake including protein & fluids. - 12/15/23 - Na 141, K 4.7 - 12/20/23 - check BMP - cont f/u promotions executive producer Dr Hill Assessment & Plan (09/20/2023 5:14 PM EDT): - 01/03/23 - Dr Starla Hill - Stay well hydrated. Increase fluid intake. Invest in a reusable water bottle. STOP taking omeprazole. Let us know if your reflux symptoms worsen. - 07/27/23 - Na 131, K 4.1, Cr 0.8, GFR 91 - 08/14/23 - Dr Hill - no proteinuria (not on RAASi) -risk factors: DM, malnutrition including poor PO intake, BPH, likely single functioning kidney (Atrophic right kidney noted since 2021) -Goal is to minimize risk factors. -Encourage p.o. intake including protein & fluids. -We discussed the progression of CKD and his prognosis given age, risk factors - 08/19/23 - Na 138, K 4.4, Cr 1.2, GFR 59 - 09/20/23 - has f/u with Dr Hill on 11/11/23 - cont f/u promotions executive producer Dr Hill Assessment & Plan (08/05/2023 5:21 PM EDT): # CKD 3 - 01/03/23 - Dr Starla Hill - Stay well hydrated. Increase fluid intake. Invest in a reusable water bottle. STOP taking omeprazole. Let us know if your reflux symptoms worsen. - 07/27/23 - Na 131, K 4.1, Cr 0.8, GFR 91 - 08/05/23 - check BMP - has f/u appt with promotions executive producer Dr Hill on 08/14/23 Assessment & Plan (01/18/2023 4:56 PM EDT): # CKD 3 - 01/03/23 - Dr Starla Hill - Stay well hydrated. Increase fluid intake. Invest in a reusable water bottle. STOP taking omeprazole. Let us know if your reflux symptoms worsen. - have recc'd to increase fluid intake - cont f/u promotions executive producer Dr Starla Hill Assessment & Plan (12/11/2022 5:22 PM EDT): Creatinine still above baseline (1.6) but improved Re-check BMP, u.a. today Check abdominal CT if not improving Appt with Dr Hill 01/03 Advised him to continue to avoid NSAIDS Assessment & Plan (11/28/2022 9:10 AM EDT): Re-check BMP today Encouraged fluids Advised against using NSAIDS for now for pain Addendum: creatinine still elevated BMP 141 105 50* / 118* 4.7 30.0 1.7* \ 11/27 1628 Will schedule complete renal U/S Lumbar spondylolysis 03/22/2022 Assessment & Plan (12/11/2022 5:17 PM EDT): F/u with Dr Melgar for 3rd injection He is considering back surgery with Dr Reyes PT Rx given today Continue Tylenol, patches Add heating pad Assessment & Plan (11/27/2022 5:08 PM EDT): F/u with Dr Melgar who wants to try another injection Continue Tylenol Try Lidoderm patches F/u with PCP Anxiety 03/12/2022 Protein-calorie malnutrition, severe 03/10/2022 Slow transit constipation 02/19/2022 Assessment & Plan (04/26/2023 1:00 PM EST): No BM in ~1 week Abdominal exam benign today, soft, NT, good BS No red flags in history or exam KUB today showing increased stool throughout the colon compatible with constipation. There is no small bowel obstruction. Advised Miralax BID for now, until moving bowels, then go to QD. Keep EGD/colonoscopy scheduled for 05/04. Reviewed importance of doing an adequate prep for these. 04/26 Addendum: Spoke with Liu on the phone. He is still uncomfortable and constipated, calling on-call. Recommend continue Miralax BID, add 2 senna a day until BM. VNA referral placed as he needs intermediate support for help with managing his constipation. Assessment & Plan (02/01/2023 5:49 PM EDT): Bowel regimen discussed Encouraged that he take Miralax q.d. or qod, hold if having BM's Try metamucil wafers q day for fiber Discussed fiber in diet and drinking adequate water daily He has GI testing scheduled for June. Asked him to call Dr Thomas's office frequently in case there is a cancellation. Phone number given to him Assessment & Plan (01/02/2023 3:33 PM EDT): Your abdomen is distended--but you do have positive bowel sounds. We will do an x ray today and I will call you later with the results. Assessment & Plan (12/19/2022 3:16 PM EDT): You have significant constipation that is likely contributing to your nausea, Please take Miralax 17 mg twice a day for the next 3 days then daily, Assessment & Plan (11/27/2022 5:10 PM EDT): Reviewed higher fiber foods, drink water every day Re-start metamucil daily If no BM in 1-3 days, take senna 1-2 pills. Severe episode of recurrent major depressive disorder, without psychotic features 09/01/2019 Schizoaffective disorder, bipolar type 9 Assessment & Plan (04/07/2024 12:13 PM EST): More or less stable. Continues to have persistent mild to moderate anxiety, dysphoria, sleep disturbance. Reports occasional negative thoughts but no suicidal ideation. Continues to suffer from chronic back pain and is contemplating surgery. Is complaint with medications. Denies SI PLAN 1) Continue Tranylcypromine (Parnate) 30 mg po bid--Rx renewed on 03/02/2024--cleared up confusion in Pharmacy and he will mushroom picker his Rx soon 2) Continue Quetiapine 400 mg/day (75+0+325)--Rx renewed on 03/10/2024 3) Continue an additional 25 mg of Quetiapine per day prn anxiety. This is over and above the 400 mg/day of Quetiapine 4) Continue Clonazepam 1 mg po qhs and 0.5 mg po prn anxiety--Rx renewed on 03/10/2024 5) Continue regular psychotherapy--meets once a week on Zoom 6) Make sure to follow up with your spine doctor for adequate pain relief (currently on Baclofen, Pregabilin, Tylenol Extra Strength) 7) Follow up in 1 month on 04/29/2024 via telephone 8) If you feel unsafe call 911 and or go to the nearest ER Assessment & Plan (03/20/2024 4:51 PM EST): # Schizoaffective disorder, bipolar type # Depression # Anxiety # Panic attacks - 08/16/22 - Dr Cheung - Awoke yesterday with a PA - very anxious, breathing heavily and feeling hopeless. Couldn't figure out how to make a phone call while this was going on. Considered going to Er but instead called friend who came over and this helped him calm down. He sees a therapist but has not met new psychiatrist, upcoming apt was cancelled because psychiatrist had emergency. He spoke to his therapist today who provided some methods of dealing with PAs... Hospital records reviewed, medications reconciled. Not receiving adequate psychiatric care through [facility]. Complicated psych hx now with PAs. Needs a lot of reassurance and management. Discussed how to manage anxiety and PAs. Can take extra dose Clonazepam - take 1/2 tab in AM if increased anxiety. Provided additional resources to seek new psychiatrist. - 09/03/22 - Dr Cheung - He talks to his therapist once a week. He still reports high level of anxiety. Currently feeling very anxious. He has not tried taking Clonazepam as we discussed at last visit. Lost info I gave him to find new psych. - 10/19/22 - has had a lot of anxiety recently, yg in the afternoons and evenings, lately has been almost everyday; pt stated his appt with Dr Cm was cancelled as Dr Cm had an emergency; he tried to call office but was not able to reach anyone to reschedule; stated an appt had been made previously that was online and he doesn't know how to set up online account for virtual visit; he finds the klonopin somewhat helpful - uses the PRN dose about every other day on average - 12/14/22 - Dr Cm - cont current meds; f/u 2.5 months - 01/18/23 - pt feels anxiety mostly stable; hasn't needed the PRN clonazepam for many weeks now - 05/15/23 - pt stated anxiety fluctuates; when he's nauseous and has pain, anxiety goes up - cont seroquel 250mg qHS - cont parnate (tranylcypromine) 30mg BID - cont clonazepam (klonopin) 1mg qHS and 0.5mg qd PRN - cont f/u psychiatrist Dr Rai Cm - 02/17-03/02/24 - hosp at [facility] psych unit - H/o Schizoaffective disorder. Recently depressed in the context of chronic pain and intrusive CAH. Therapist was concerned about increase of intensity and frequency of CAH in the weeks preceding the admission. Although he expressed vague SI to friend during a phone conversation, he has consistently denied any passive or active SI in the hospital. He was help seeking. The milieu support, the increasing of Seroquel and the continuation of Parnate has resulted in a decrease of the intensity and frequency of CAH, although they still bother him. They are likely to continue and the best way to deal with them is by being accompanied or involved in activities. His psychotherapist, Jake Watson reports that the most vulnerable times for him are evenings. He would benefit from pattern grader cutter between 6-9pm but he is afraid of spending his limited resources. On the other hand, he may not have an alternative but to spend his assets if he wants to get help from state to pay for services. - 03/10/24 - Dr Cm - Spoke to the patient on the phone. 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 He has recently been discharged from [place] [id number] on 03/02/2024 after a 13 day stay (02/18/2024-03/02/2024) for suicidal ideation and CAH. He currently denies any IOR, hallucinations or delusions. He continues to be very bothered by persistent joint pain from his scoliosis/kyphosis--not responsive to Baclofen, Pregabilin, Tylenos. He reports persistent mild anxiety, dysphoria and sleep disturbance. He is having a hard time managing the chronic back pain and is contemplating surgery--he has an appointment on 03/16/2024 with a credit operations specialist. He is compliant with his medication regimen which he has been of for some time--there were some adjustments in the hospital (increase in Quetiapine) : Parnate: 30 mg po bid, Quetiapine increased from 250 mg po qhs to 400 mg/day (75+0+325). Previously he had also been on Loxapine 30 mg po bid and Methylphenidate 50 mg /day (20+20+10)--these medications were discontinued in July of 2022 after a hospitalization for irritable bowel syndrome. Note as per his PCP he had a panic attack in August 2022. He denies currently any intrusive thoughts, hallucinations, delusions. He denies any distractibility, inappropriate / risky behavior, grandiosity / delusions, flight of ideas/racing thoughts, increased focused activity, decreased sleep, and pressured speech. He denies any suicidal ideations or intent currently- PLAN 1) Continue Tranylcypromine (Parnate) 30 mg po bid--Rx renewed on 03/02/2024 2) Continue Quetiapine 400 mg/day (75+0+325)--Rx renewed 3) Continue an additional 25 mg of Quetiapine per day prn anxiety. This is over and above the 400 mg/day of Quetiapine 4) Continue Clonazepam 1 mg po qhs and 0.5 mg po prn anxiety--Rx renewed 5) Continue regular psychotherapy 6) Make sure to follow up with your spine doctor for adequate pain relief (currently on Baclofen, Pregabilin, Tylenol Extra Strength) 7) Follow up in person in 1 month on 04/07/2024 8) If you feel unsafe call 911 and or go to the nearest ER - 03/20/24 - pt stated still having some negative intrusive thoughts; is taking higher dose of seroquel 300mg qHS and 25mg qAM; he did not realize Dr Bird had recc'd the morning dose of seroquel as 75mg but he will try that - cont seroquel 300mg qHS; he will try the 75mg qAM as well as recc'd by Dr Bird and Dr Cm - cont seroquel 25mg qd PRN anxiety - cont parnate (tranylcypromine) 30mg BID - cont clonazepam (klonopin) 1mg qHS and 0.5mg qd PRN - cont f/u psychotherapist Jake Watson - sees him every week via zoom - cont f/u psychiatrist Dr Rai Cm - has appt 04/07/24 Assessment & Plan (03/10/2024 12:55 PM EST): CC: I'm in a lot of pain HPI: Spoke to the patient on the phone. 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 He has recently been discharged from [place] [address] on 03/02/2024 after a 13 day stay (02/18/2024-03/02/2024) for suicidal ideation and CAH. He currently denies any IOR, hallucinations or delusions. He continues to be very bothered by persistent joint pain from his scoliosis/kyphosis--not responsive to Baclofen, Pregabilin, Tylenos. He reports persistent mild anxiety, dysphoria and sleep disturbance. He is having a hard time managing the chronic back pain and is contemplating surgery--he has an appointment on 03/16/2024 with a credit operations specialist. He is compliant with his medication regimen which he has been of for some time--there were some adjustments in the hospital (increase in Quetiapine) : Parnate: 30 mg po bid, Quetiapine increased from 250 mg po qhs to 400 mg/day (75+0+325). Previously he had also been on Loxapine 30 mg po bid and Methylphenidate 50 mg /day (20+20+10)--these medications were discontinued in July of 2022 after a hospitalization for irritable bowel syndrome. Note as per his PCP he had a panic attack in August 2022. He denies currently any intrusive thoughts, hallucinations, delusions. He denies any distractibility, inappropriate / risky behavior, grandiosity / delusions, flight of ideas/racing thoughts, increased focused activity, decreased sleep, and pressured speech. He denies any suicidal ideations or intent currently- PLAN 1) Continue Tranylcypromine (Parnate) 30 mg po bid--Rx renewed on 03/02/2024 2) Continue Quetiapine 400 mg/day (75+0+325)--Rx renewed 3) Continue an additional 25 mg of Quetiapine per day prn anxiety. This is over and above the 400 mg/day of Quetiapine 4) Continue Clonazepam 1 mg po qhs and 0.5 mg po prn anxiety--Rx renewed 5) Continue regular psychotherapy 6) Make sure to follow up with your spine doctor for adequate pain relief (currently on Baclofen, Pregabilin, Tylenol Extra Strength) 7) Follow up in person in 1 month on 04/07/2024 8) If you feel unsafe call 911 and or go to the nearest ER Assessment & Plan (05/15/2023 5:07 PM EST): # Schizoaffective disorder, bipolar type # Anxiety # Panic attacks - 08/16/22 - Dr Cheung - Awoke yesterday with a PA - very anxious, breathing heavily and feeling hopeless. Couldn't figure out how to make a phone call while this was going on. Considered going to Er but instead called friend who came over and this helped him calm down. He sees a therapist but has not met new psychiatrist, upcoming apt was cancelled because psychiatrist had emergency. He spoke to his therapist today who provided some methods of dealing with PAs... Hospital records reviewed, medications reconciled. Not receiving adequate psychiatric care through [facility]. Complicated psych hx now with PAs. Needs a lot of reassurance and management. Discussed how to manage anxiety and PAs. Can take extra dose Clonazepam - take 1/2 tab in AM if increased anxiety. Provided additional resources to seek new psychiatrist. - 09/03/22 - Dr Cheung - He talks to his therapist once a week. He still reports high level of anxiety. Currently feeling very anxious. He has not tried taking Clonazepam as we discussed at last visit. Lost info I gave him to find new psych. - 10/19/22 - has had a lot of anxiety recently, yg in the afternoons and evenings, lately has been almost everyday; pt stated his appt with Dr Cm was cancelled as Dr Cm had an emergency; he tried to call office but was not able to reach anyone to reschedule; stated an appt had been made previously that was online and he doesn't know how to set up online account for virtual visit; he finds the klonopin somewhat helpful - uses the PRN dose about every other day on average - 12/14/22 - Dr Cm - cont current meds; f/u 2.5 months - 01/18/23 - pt feels anxiety mostly stable; hasn't needed the PRN clonazepam for many weeks now - 05/15/23 - pt stated anxiety fluctuates; when he's nauseous and has pain, anxiety goes up - cont parnate (tranylcypromine) 30mg BID - cont seroquel 250mg qHS - cont clonazepam (klonopin) 1mg qHS and 0.5mg qd PRN - cont f/u psychiatrist Dr Rai Cm Assessment & Plan (01/18/2023 4:55 PM EDT): # Schizoaffective disorder, bipolar type # Anxiety # Panic attacks - 08/16/22 - Dr Cheung - Awoke yesterday with a PA - very anxious, breathing heavily and feeling hopeless. Couldn't figure out how to make a phone call while this was going on. Considered going to Er but instead called friend who came over and this helped him calm down. He sees a therapist but has not met new psychiatrist, upcoming apt was cancelled because psychiatrist had emergency. He spoke to his therapist today who provided some methods of dealing with PAs... Hospital records reviewed, medications reconciled. Not receiving adequate psychiatric care through [facility]. Complicated psych hx now with PAs. Needs a lot of reassurance and management. Discussed how to manage anxiety and PAs. Can take extra dose Clonazepam - take 1/2 tab in AM if increased anxiety. Provided additional resources to seek new psychiatrist. - 09/03/22 - Dr Cheung - He talks to his therapist once a week. He still reports high level of anxiety. Currently feeling very anxious. He has not tried taking Clonazepam as we discussed at last visit. Lost info I gave him to find new psych. - 10/19/22 - has had a lot of anxiety recently, yg in the afternoons and evenings, lately has been almost everyday; pt stated his appt with Dr Cm was cancelled as Dr Cm had an emergency; he tried to call office but was not able to reach anyone to reschedule; stated an appt had been made previously that was online and he doesn't know how to set up online account for virtual visit; he finds the klonopin somewhat helpful - uses the PRN dose about every other day on average - 12/14/22 - Dr Cm - cont current meds; f/u 2.5 months - 01/18/23 - pt feels anxiety mostly stable; hasn't needed the PRN clonazepam for many weeks now - cont parnate (tranylcypromine) 30mg BID - cont seroquel 250mg qHS - cont clonazepam (klonopin) 1mg qHS and 0.5mg qd PRN - cont f/u psychiatrist Dr Rai Cm Assessment & Plan (12/14/2022 6:33 PM EDT): CC: I'm okay HPI: On presentation, 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 He came into the office with a walker--he is in constant pain from his scoliosis/kyphosis. He reports persistent mild anxiety, dysphoria and sleep disturbance. He is having a hard time managing the chronic back pain and is contemplating surgery. He is compliant with his medication regimen which he has been of for some time: Parnate: 30 mg po bid, Quetiapine 250 mg po qhs. Previously he had also been on Loxapine 30 mg po bid and Methylphenidate 50 mg /day (20+20+10)--these medications were discontinued in July of 2022 after a hospitalization for irritable bowel syndrome. He denies any adverse effects in terms of mood, anxiety, behavior, concentration as a result of stopping the Loxapine and Methylphenidate. Note as per his PCP he had a panic attack in August 2022. He denies any intrusive thoughts, hallucinations, delusions. He denies any distractibility, inappropriate / risky behavior, grandiosity / delusions, flight of ideas/racing thoughts, increased focused activity, decreased sleep, and pressured speech. He denies any suicidal ideations or intent currently--note he reports that in the past week he had some vague thoughts of being better off because of persistent back pain but says he would never act on it PLAN 1) Continue Tranylcypromine (Parnate) 30 mg po bid 2) Continue Quetiapine 250 mg po qhs 3) Continue Clonazepam 1 mg po qhs and 0.5 mg po prn anxiety 4) Continue psychotherapy 5) Follow up in person in 2.5 months on 03/01/2023 Assessment & Plan (10/19/2022 1:23 PM EDT): # Schizoaffective disorder, bipolar type # Anxiety # Panic attacks - 08/16/22 - Dr Cheung - Awoke yesterday with a PA - very anxious, breathing heavily and feeling hopeless. Couldn't figure out how to make a phone call while this was going on. Considered going to Er but instead called friend who came over and this helped him calm down. He sees a therapist but has not met new psychiatrist, upcoming apt was cancelled because psychiatrist had emergency. He spoke to his therapist today who provided some methods of dealing with PAs... Hospital records reviewed, medications reconciled. Not receiving adequate psychiatric care through [facility]. Complicated psych hx now with PAs. Needs a lot of reassurance and management. Discussed how to manage anxiety and PAs. Can take extra dose Clonazepam - take 1/2 tab in AM if increased anxiety. Provided additional resources to seek new psychiatrist. - 09/03/22 - Dr Cheung - He talks to his therapist once a week. He still reports high level of anxiety. Currently feeling very anxious. He has not tried taking Clonazepam as we discussed at last visit. Lost info I gave him to find new psych. - 10/19/22 - has had a lot of anxiety recently, yg in the afternoons and evenings, lately has been almost everyday; pt stated his appt with Dr Cm was cancelled as Dr Cm had an emergency; he tried to call office but was not able to reach anyone to reschedule; stated an appt had been made previously that was online and he doesn't know how to set up online account for virtual visit; he finds the klonopin somewhat helpful - uses the PRN dose about every other day on average - cont parnate (tranylcypromine) 30mg BID - cont seroquel 250mg qHS - cont clonazepam (klonopin) 1mg qHS and 0.5mg qd PRN - sent message to Dr Cm to ask him to have his team reach out to pt to reschedule appt from 08/13/22 and to have it as in-person appt as pt doesn't know how to set up phone/computer for virtual visit - cont f/u psychiatrist Dr Rai Cm Assessment & Plan (10/12/2021 3:37 PM EDT): Mood has been relatively stable,??patient denies symptoms of depression during daytime but has been experiencing mild symptoms of depression in the evening,??has difficulty to tolerate being alone. He denies paranoid ideations and delusions but has been endorsing fears especially in the evening in connection with difficulty to tolerate to be alone. He has a history of fleeting suicidal ideations but denies them at this time,??no plans or attempts. ?? Medication management: ?? Depression/anxiety ?? Parnate 10 mg tablet,??take 3 tablets twice a day ?? Loxapine 10 mg capsule,??take 3 capsules twice a day ?? Anxiety??/sleep/fear Seroquel 100 mg tablet,??take 2 and??1/2??tablet p.o. at bedtime ?? Anxiety Clonazepam 1 mg p.o. at bedtime ?? Attention and concentration ?? Methylphenidate 20 mg tablet,??take 1 tablet p.o. every morning,??1 tablet in the middle of the day,??and??1/2??of the tablet p.o.??in the??afternoon Assessment & Plan (07/26/2021 5:21 PM EDT): Mood has been relatively stable,??patient denies symptoms of depression during daytime but has been experiencing mild symptoms of depression in the evening,??has difficulty to tolerate being alone. He denies paranoid ideations and delusions but has been endorsing fears especially in the evening in connection with difficulty to tolerate to be alone. He has a history of fleeting suicidal ideations but denies them at this time,??no plans or attempts. Medication management: ?? Depression/anxiety Parnate 10 mg tablet, take 3 tablets twice a day ?? Loxapine 10 mg capsule, take 3 capsules twice a day Anxiety /sleep/fear Seroquel 100 mg tablet, take 2 and 1/2 tablet p.o. at bedtime Anxiety Clonazepam 1 mg p.o. at bedtime ?? Attention and concentration ?? Methylphenidate 20 mg tablet, take 1 tablet p.o. every morning, 1 tablet in the middle of the day, and 1/2 of the tablet p.o. in the afternoon ?? Assessment & Plan (05/18/2021 3:36 PM EST): Mood has been relatively stable, patient denies symptoms of depression during daytime but has been experiencing mild symptoms of depression in the evening, has difficulty to tolerate being alone. Patient has been working on moving to the assisted living facility. He denies paranoid ideations and delusions but has been endorsing fears especially in the evening in connection with difficulty to tolerate to be alone. He has a history of fleeting suicidal ideations but denies them at this time, no plans or attempts. Medication management: Depression/anxiety Parnate 10 mg tablet, take 3 tablets twice a day Loxapine 10 mg capsule, take 3 capsules twice a day Anxiety /sleep/fear Seroquel 100 mg tablet, take 2 and 1/2 tablet p.o. at bedtime Anxiety Clonazepam 1 mg p.o. at bedtime Attention and concentration issues Methylphenidate 20 mg tablet, take 1 tablet p.o. every morning, 1 tablet in the middle of the day, and 1/2 of the tablet p.o. in the afternoon Assessment & Plan (02/22/2021 2:47 PM EST): Mood has been relatively stable, patient denies symptoms of depression during daytime but has been experiencing mild symptoms of depression in the evening, has difficulty to tolerate being alone. Patient has been working on moving to the assisted living facility. He denies paranoid ideations and delusions but has been endorsing fears especially in the evening in connection with difficulty to tolerate to be alone. He has a history of fleeting suicidal ideations but denies them at this time, no plans or attempts. Medication management: Psychosis Continue Loxapine 30 mg bid, Seroquel 300 mg p.o. at bedtime Depression Parnate 30 mg bid Depression/cognitive issues methylphenidate 20 mg qam, methylphenidate ER 72 mg q afternoon, Anxiety clonazepam 2 mg p.o. at bedtime We discussed and agreed to review and assess medication management in the future with a plan to simplify the treatment to 1 antipsychotic medication and gradually taper down stimulants Patient denies any suicidal ideation at this time. He has a history of fleeting suicidal ideations. 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 Pt notices its worst w/ carrying heavy bag. -Will attempt to offload bag as much as possible -Plan for PT Overactive bladder 01/10/2017 Assessment & Plan (12/20/2022 12:52 PM EDT): I checked a bladder scan today and you are not retaining urine. Assessment & Plan (01/25/2017 5:35 PM EDT): VSS and pt's sx improved overnight with less episodes of frequency with urination. Currently asx. UA dipstick was negative. Will send a UA to r/o UTI and if +, will send urine for Ucx for sensitivities to Tx the UTI if present. Assessment & Plan (01/21/2017 9:47 AM EDT): Currently improved, off medication. Insomnia 01/10/2017 Age-related osteoporosis wit hout current pathological fracture 01/10/2017 Assessment & Plan (03/20/2024 4:52 PM EST): - 06/17/2019 - Dr Cheung - Discussed at length osteoporosis and contribution of this to vertebral compression fractures and risk for additional fractures and findings on DEXA. Discussed dental issues at length, being seen through dental now, needs extractions and root canals, has not scheduled full evaluation which is step prior to having work done, cost is of course a barrier. This was initially discussed at 10/01 visit and he has not done anything since. I do not recommend further delay of osteoporosis treatment but tried to reassure him that this is not life or as put by the alternative practitioner he saw. Will need labs prior to administration of Reclast. Had recent Cr, PTH, testosterone. Needs Vit D, Ca. DM well controlled, labs from 06/04 reviewed and updated in . - 09/20/23 - pt stated he went to the dentist for the first time in over a year last week and was told he needs a root canal and several teeth were cracked but he was okay for now; pt stated he has never been on meds for osteoporosis but would be open to being on them; pt interested in meeting with beverage inspection machine tender to discuss benefits/risks of meds - refer to beverage inspection machine tender - 12/20/23 - pt stated his dentist recently recently referred him to dental surgeon for 4 root canals and 2 teeth extractions - has appt with beverage inspection machine tender Dr West on 12/24/23 - 12/24/23 - Dr West - Patient has osteoporosis as reported above. Per report he has not had any fractures. Most recent fall also did not complicated by a fracture. Recent secondary osteoporosis workup is mostly unremarkable. No testosterone level in the system which will be obtained. Patient is expecting to have extensive dental workup starting in a month. Therefore I think this is reasonable for patient to hold off treatment at this point. We will obtain DEXA scan. Patient will continue with current supplements. Most recent vitamin D level was within normal range. Will follow-up in 6 months and then start treatment if indicated. - 03/20/24 - pt stated he is now done with extensive dental work up; will f/u with Dr West in June - cont f/u endo Dr West - has appt 06/22/24 Assessment & Plan (12/20/2023 6:13 PM EDT): - 06/17/2019 - Dr Cheung - Discussed at length osteoporosis and contribution of this to vertebral compression fractures and risk for additional fractures and findings on DEXA. Discussed dental issues at length, being seen through dental now, needs extractions and root canals, has not scheduled full evaluation which is step prior to having work done, cost is of course a barrier. This was initially discussed at 10/01 visit and he has not done anything since. I do not recommend further delay of osteoporosis treatment but tried to reassure him that this is not life or as put by the alternative practitioner he saw. Will need labs prior to administration of Reclast. Had recent Cr, PTH, testosterone. Needs Vit D, Ca. DM well controlled, labs from 06/04 reviewed and updated in . - 09/20/23 - pt stated he went to the dentist for the first time in over a year last week and was told he needs a root canal and several teeth were cracked but he was okay for now; pt stated he has never been on meds for osteoporosis but would be open to being on them; pt interested in meeting with beverage inspection machine tender to discuss benefits/risks of meds - refer to beverage inspection machine tender - 12/20/23 - pt stated his dentist recently recently referred him to dental surgeon for 4 root canals and 2 teeth extractions - has appt with beverage inspection machine tender Dr West on 12/24/23 Assessment & Plan (09/20/2023 5:13 PM EDT): - 06/17/2019 - Dr Cheung - Discussed at length osteoporosis and contribution of this to vertebral compression fractures and risk for additional fractures and findings on DEXA. Discussed dental issues at length, being seen through dental now, needs extractions and root canals, has not scheduled full evaluation which is step prior to having work done, cost is of course a barrier. This was initially discussed at 10/01 visit and he has not done anything since. I do not recommend further delay of osteoporosis treatment but tried to reassure him that this is not life or as put by the alternative practitioner he saw. Will need labs prior to administration of Reclast. Had recent Cr, PTH, testosterone. Needs Vit D, Ca. DM well controlled, labs from 06/04 reviewed and updated in . - 09/20/23 - pt stated he went to the dentist for the first time in over a year last week and was told he needs a root canal and several teeth were cracked but he was okay for now; pt stated he has never been on meds for osteoporosis but would be open to being on them; pt interested in meeting with beverage inspection machine tender to discuss benefits/risks of meds - refer to beverage inspection machine tender Assessment & Plan (12/30/2018 4:28 PM EDT): -Is a member at the [facility] in [place]. Will contact them about bone health classes. -The pt is interested in the exercise class at [place]. He was provided w/ that information Pancytopenia 01/10/2017 Overview (11/07/2018): Seen by russ. Thought to be secondary to medication (Seroquel, Parnate). Plan is to monitor. Assessment & Plan (12/20/2023 6:13 PM EDT): # Pancytopenia # Iron deficiency anemia - 07/03-07/27/23 - hospitalized at [facility] - Patient had pancytopenia throughout this admission, which had also been noted on prior labs. Ddx included iatrogenic effect of quetiapine vs malignancy. SPEP was unremarkable. Patient was evaluated by hematology inpatient who recommended that he follow up with their clinic after discharge for consideration of bone marrow biopsy. - Patient had labs consistent with chronic blood loss, based on his EGD results this was likely from PUD. He was repleted with IV venofer. - refer to heme/onc - 08/05/23 - WBC 4.0, Hgb 9.4 (L), Plt 158 - 09/20/23 - has appt with Dr Beverly 10/14/23 - 12/20/23 - did not make it to appt with Dr Beverly Assessment & Plan (09/20/2023 5:15 PM EDT): # Pancytopenia # Iron deficiency anemia - 07/03-07/27/23 - hospitalized at [facility] - Patient had pancytopenia throughout this admission, which had also been noted on prior labs. Ddx included iatrogenic effect of quetiapine vs malignancy. SPEP was unremarkable. Patient was evaluated by hematology inpatient who recommended that he follow up with their clinic after discharge for consideration of bone marrow biopsy. - Patient had labs consistent with chronic blood loss, based on his EGD results this was likely from PUD. He was repleted with IV venofer. - refer to heme/onc - 08/05/23 - WBC 4.0, Hgb 9.4 (L), Plt 158 - 09/20/23 - has appt with Dr Beverly 10/14/23 Assessment & Plan (08/05/2023 5:21 PM EDT): # Pancytopenia # Iron deficiency anemia - 07/03-07/27/23 - hospitalized at [facility] - Patient had pancytopenia throughout this admission, which had also been noted on prior labs. Ddx included iatrogenic effect of quetiapine vs malignancy. SPEP was unremarkable. Patient was evaluated by hematology inpatient who recommended that he follow up with their clinic after discharge for consideration of bone marrow biopsy. - Patient had labs consistent with chronic blood loss, based on his EGD results this was likely from PUD. He was repleted with IV venofer. - 08/05/23 - check CBC - refer to heme/onc Memory loss or impairment 01/10/2017 Overview (11/07/2018): Neuropsych testing done through [facility], report in media Assessment & Plan (01/21/2017 9:46 AM EDT): He has concerns, recommend return for further testing. Kyphoscoliosis and scoliosis 01/10/2017 Assessment & Plan (01/21/2017 9:45 AM EDT): More marked, would benefit from PT and conditioning. Refer PT. Malignant neoplastic disease 05/14/2014 Overview (03/06/2024): BASAL CELL; Recorded 05/14/2014 11:28AM by Julissa Beck, Office Visit; Promoted; acuity set as * Pure hypercholesterolemia 05/01/2011 Gastroesophageal reflux disease 01/07/2007 Assessment & Plan (01/03/2023 10:04 AM EDT): Continue with the omeprazole and follow up with Dr Thomas's office regarding timing of testing. Assessment & Plan (11/27/2022 5:12 PM EDT): Nausea improved with daily PPI Problems with swallowing and mastication Resolved Problems Problem Noted Date Diagnosed Date Resolved Date Chronic prescription benzodiazepine use 02/16/2024 02/20/2024 Lower extremity edema 09/20/20232023 Assessment & Plan (09/20/2023 5:14 PM EDT): - 09/20/23 - on exam today had 2-3+ pitting edema to knees, up from 1+ in ankles previously; pt stated therapist has recc'd he elevate legs which is plans to try - recc'd leg elevation - recc'd compression stockings Influenza A 07/25/2023 12/19/2023 Hyperkalemia 07/19/2023 02/20/2024 Protein calorie malnutrition 07/19/2023 12/19/2023 Unintentional weight loss 07/18/2023 Elevated lipase 07/18/2023 02/20/2024 Cachexia 07/18/2023 02/20/2024 Medicare annual wellness visit, subsequent 05/22/2023 12/19/2023 Assessment & Plan (05/22/2023 6:02 PM EST): # Medicare AWV - Flu - 01/16/23 - COVID-19 - 06/10/20, 07/15/20, 03/03/21, 07/27/21, 01/25/22; got it 01/2023 at the building he lives in, per pt - PCV13 - 03/15/15 - PPV23 07/27/10 - Tdap - 10/19/22 - Shingrix - 01/18/23 - Colon cancer screening - scheduled for June [address] Thomas # [facility] - HCP 1: Braxton Jc (friend) - [phone] (scanned in [facility]) - Full code per pt on 05/22/23 Periumbilical abdominal pain 05/17/2023 02/20/2024 Community acquired pneumonia 05/15/2023 12/19/2023 Assessment & Plan (05/15/2023 5:07 PM EST): # RML Pneumonia - 05/02-05/08/23 - hospitalization at [facility] - Cough, productive sputum. Procalcitonin 0.297. No fever nor white blood cell count increased. Strep pneumonia antigen negative. Blood and sputum cultures negative.. COVID/flu/RSV negative. S/p CTXx1 + unasyn x 1, CFTX x 3 for five days of coverage. 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 I have ordered blood work--and a CT SCAN for today-- I will follow-up with you regarding the results. Assessment & Plan (01/10/2023 4:46 PM EDT): You are reporting--abdominal discomfort that is more severe and unlike your constipation symptoms. You have recently had a Abdominal CT Scan in May that was not concerning. I will repeat a CT SCAN today to make sure there are no new symptoms Your renal function has improved, please drink at least four glasses of fluid tonight after the contrast. Phlegm in throat 12/11/2022 02/20/2024 Assessment & Plan (09/20/2023 5:15 PM EDT): # Phlegm # Post-nasal drip? - 12/11/22 - Betty Emerson OFFICIAL COURT REPORTER - Phlegm in his throat. Getting thicker. He thinks it is coming from his chest. Denies cough, SOB, wheeze. Omeprazole has not helped phlegm. Nausea is improved. Recommended he trial Flonase Refer to ENT if persisting. - 12/19/22 - Nat Avilez OFFICIAL COURT REPORTER - Please use the nasal spray, we reviewed the technique - 01/16/23 - Dr Metrick during hospitalization - Dyspnea - resolved with treatment of abdominal pain and anxiety. May have had restricted breathing from pain. Really more of an issue with phlegm, which has been an issue since November. Improved with guaifenisin changed to long-acting and standing doses, adding nasal steroid as recommended outpatient, lozenges prn. - 01/18/23 - pt hasn't tried albuterol inhaler or nasal spray that hospitalist sent him home with yet but plans to try it soon - try albuterol inhaler 2 puffs q6h PRN - try NaCl 0.65% nasal srapy 3x/d - try flonase - 03/06/23 - has been using NaCl 0.65% nasal spray 1-3x/day depending on how the phlegm; he finds that it helps a little; hasn't tried flonase or albuterol - try flonase nasal spray - prescribed today - 05/15/23 - using flonase and NaCl nasal spray when he has phlegm, somewhat helpful - 05/22/23 - stable, still has some phlegm and coughing; plans to try robitussin that hospital team had recc'd - 09/20/23 - hasn't tried robitussin yet but plans to try it - pt plans to try the robitussin that hospital team recc'd - cont NaCl 0.65% nasal spray 1-3x/d - cont flonase Assessment & Plan (08/05/2023 5:22 PM EDT): # Phlegm # Post-nasal drip? - 12/11/22 - Betty Lay OFFICIAL COURT REPORTER - Phlegm in his throat. Getting thicker. He thinks it is coming from his chest. Denies cough, SOB, wheeze. Omeprazole has not helped phlegm. Nausea is improved. Recommended he trial Flonase Refer to ENT if persisting. - 12/19/22 - Nat Avilez OFFICIAL COURT REPORTER - Please use the nasal spray, we reviewed the technique - 01/16/23 - Dr Reevesk during hospitalization - Dyspnea - resolved with treatment of abdominal pain and anxiety. May have had restricted breathing from pain. Really more of an issue with phlegm, which has been an issue since November. Improved with guaifenisin changed to long-acting and standing doses, adding nasal steroid as recommended outpatient, lozenges prn. - 01/18/23 - pt hasn't tried albuterol inhaler or nasal spray that hospitalist sent him home with yet but plans to try it soon - try albuterol inhaler 2 puffs q6h PRN - try NaCl 0.65% nasal srapy 3x/d - try flonase - 03/06/23 - has been using NaCl 0.65% nasal spray 1-3x/day depending on how the phlegm; he finds that it helps a little; hasn't tried flonase or albuterol - try flonase nasal spray - prescribed today - 05/15/23 - using flonase and NaCl nasal spray when he has phlegm, somewhat helpful - 05/22/23 - stable, still has some phlegm and coughing; plans to try robitussin that hospital team had recc'd - 08/05/23 - hasn't tried robitussin yet but plans to try it - pt plans to try the robitussin that hospital team recc'd - cont NaCl 0.65% nasal spray 1-3x/d - cont flonase Assessment & Plan (05/22/2023 6:01 PM EST): # Phlegm # Post-nasal drip? - 12/11/22 - Betty Lay OFFICIAL COURT REPORTER - Phlegm in his throat. Getting thicker. He thinks it is coming from his chest. Denies cough, SOB, wheeze. Omeprazole has not helped phlegm. Nausea is improved. Recommended he trial Flonase Refer to ENT if persisting. - 12/19/22 - Nat Avilez OFFICIAL COURT REPORTER - Please use the nasal spray, we reviewed the technique - 01/16/23 - Dr Metrick during hospitalization - Dyspnea - resolved with treatment of abdominal pain and anxiety. May have had restricted breathing from pain. Really more of an issue with phlegm, which has been an issue since November. Improved with guaifenisin changed to long-acting and standing doses, adding nasal steroid as recommended outpatient, lozenges prn. - 01/18/23 - pt hasn't tried albuterol inhaler or nasal spray that hospitalist sent him home with yet but plans to try it soon - try albuterol inhaler 2 puffs q6h PRN - try NaCl 0.65% nasal srapy 3x/d - try flonase - 03/06/23 - has been using NaCl 0.65% nasal spray 1-3x/day depending on how the phlegm; he finds that it helps a little; hasn't tried flonase or albuterol - try flonase nasal spray - prescribed today - 05/15/23 - using flonase and NaCl nasal spray when he has phlegm, somewhat helpful - 05/22/23 - stable, still has some phlegm and coughing; plans to try robitussin that hospital team had recc'd - cont NaCl 0.65% nasal spray 1-3x/d - cont flonase - pt plans to try the robitussin that hospital team recc'd Assessment & Plan (05/15/2023 5:06 PM EST): # Phlegm # Post-nasal drip? - 12/11/22 - Betty Emerson OFFICIAL COURT REPORTER - Phlegm in his throat. Getting thicker. He thinks it is coming from his chest. Denies cough, SOB, wheeze. Omeprazole has not helped phlegm. Nausea is improved. Recommended he trial Flonase Refer to ENT if persisting. - 12/19/22 - Nat Avilez OFFICIAL COURT REPORTER - Please use the nasal spray, we reviewed the technique - 01/16/23 - Dr Hall during hospitalization - Dyspnea - resolved with treatment of abdominal pain and anxiety. May have had restricted breathing from pain. Really more of an issue with phlegm, which has been an issue since November. Improved with guaifenisin changed to long-acting and standing doses, adding nasal steroid as recommended outpatient, lozenges prn. - 01/18/23 - pt hasn't tried albuterol inhaler or nasal spray that hospitalist sent him home with yet but plans to try it soon - try albuterol inhaler 2 puffs q6h PRN - try NaCl 0.65% nasal srapy 3x/d - try flonase - 03/06/23 - has been using NaCl 0.65% nasal spray 1-3x/day depending on how the phlegm; he finds that it helps a little; hasn't tried flonase or albuterol - try flonase nasal spray - prescribed today - 05/15/23 - using flonase and NaCl nasal spray when he has phlegm, somewhat helpful - cont NaCl 0.65% nasal spray 1-3x/d - cont flonase - pt plans to try the robitussin that hospital team recc'd Assessment & Plan (04/23/2023 12:19 PM EST): He is trying mucinex now, not sure if it is helping yet He is re-trialing Flonase nasal spray Assessment & Plan (03/06/2023 5:34 PM EST): # Phlegm # Post-nasal drip? - 12/11/22 - Betty Emerson OFFICIAL COURT REPORTER - Phlegm in his throat. Getting thicker. He thinks it is coming from his chest. Denies cough, SOB, wheeze. Omeprazole has not helped phlegm. Nausea is improved. Recommended he trial Flonase Refer to ENT if persisting. - 12/19/22 - Nat Avilez OFFICIAL COURT REPORTER - Please use the nasal spray, we reviewed the technique - 01/16/23 - Dr Hall during hospitalization - Dyspnea - resolved with treatment of abdominal pain and anxiety. May have had restricted breathing from pain. Really more of an issue with phlegm, which has been an issue since November. Improved with guaifenisin changed to long-acting and standing doses, adding nasal steroid as recommended outpatient, lozenges prn. - 01/18/23 - pt hasn't tried albuterol inhaler or nasal spray that hospitalist sent him home with yet but plans to try it soon - try albuterol inhaler 2 puffs q6h PRN - try NaCl 0.65% nasal srapy 3x/d - try flonase - 03/06/23 - has been using NaCl 0.65% nasal spray 1-3x/day depending on how the phlegm; he finds that it helps a little; hasn't tried flonase or albuterol - cont NaCl 0.65% nasal spray 1-3x/d - try flonase nasal spray - prescribed today Assessment & Plan (01/18/2023 4:55 PM EDT): # Phlegm # Post-nasal drip? - 12/11/22 - Betty Emerson OFFICIAL COURT REPORTER - Phlegm in his throat. Getting thicker. He thinks it is coming from his chest. Denies cough, SOB, wheeze. Omeprazole has not helped phlegm. Nausea is improved. Recommended he trial Flonase Refer to ENT if persisting. - 12/19/22 - Nat Avilez OFFICIAL COURT REPORTER - Please use the nasal spray, we reviewed the technique - 01/16/23 - Dr Metrick during hospitalization - Dyspnea - resolved with treatment of abdominal pain and anxiety. May have had restricted breathing from pain. Really more of an issue with phlegm, which has been an issue since November. Improved with guaifenisin changed to long-acting and standing doses, adding nasal steroid as recommended outpatient, lozenges prn. - 01/18/23 - pt hasn't tried albuterol inhaler or nasal spray that hospitalist sent him home with yet but plans to try it soon - try albuterol inhaler 2 puffs q6h PRN - try NaCl 0.65% nasal srapy 3x/d - try flonase Assessment & Plan (01/10/2023 5:20 PM EDT): We have discussed the issue of phelgm in your throat, The medication for GERD did not help. Flonase has not helped, increased fluids has not helped. We have discussed that you need an endoscopy which has been scheduled through Dr Thomas's office, unfortunately there is a wait. We will see if we can get this soon. In the meantime, drink plenty of fluids and attempt to clear your throat frequently. Assessment & Plan (12/19/2022 3:13 PM EDT): Please use the nasal spray, we reviewed the technique Assessment & Plan (12/11/2022 5:25 PM EDT): Uncertain etiology Post nasal drip Achalasia Aspiration Recommended he trial Flonase Refer to ENT if persisting. Nausea 11/01/2022 02/20/2024 Assessment & Plan (04/23/2023 12:26 PM EST): Intermittent ?gastroparesis Consider gastric emptying study - (will defer to PCP) OK to use Zofran, prn, but need to monitor bowels as this can worsen constipation. Another idea is OTC Dramamine, but use cautiously as may be sedating RTC 2/7 f/u with PCP Assessment & Plan (02/01/2023 5:44 PM EDT): Advised him to drink tea first to settle the nausea Zofran refilled, but explained to him that it is constipating. Assessment & Plan (11/01/2022 4:35 PM EDT): Blood work today I am feeling a firm area in your right lower quadrant I think it reasonable to do a repeat CT SCAN of your abdomen we will schedule it an give you a call. In the meantime blood work, Trial of omeprazole 20 mg daily. This should help with the mucous feeling in the back of your throat. Routine health maintenance 10/19/2022 0 12/19/2023 Assessment & Plan (09/20/2023 5:16 PM EDT): # [facility] - COVID-19 - 06/10/20, 07/15/20, 03/03/21, 07/27/21, 01/25/22; 02/05/23; 08/05/23 - Flu - 01/16/23 - PCV-20 - ordered 09/20/23 - PCV13 - 03/15/15 - PPV23 07/27/10 - Tdap - 10/19/22 - Shingrix - 01/18/23, on 08/05/23 recc'd getting dose #2 at pharmacy - not yet as of 09/20/23 - Colon cancer screening - colonoscopy 2023 at [facility] during inpatient stay - 6 sessile polyps removed # [facility] - HCP 1: Braxton Jc (laurie) - [phone] (scanned in EPIC) - Full code per pt on 05/22/23 Assessment & Plan (08/05/2023 5:23 PM EDT): # [facility] - Flu - 01/16/23 - COVID-19 - 06/10/20, 07/15/20, 03/03/21, 07/27/21, 01/25/22; 02/05/23; ordered on 08/05/23 - PCV13 - 03/15/15 - PPV23 07/27/10 - Tdap - 10/19/22 - Shingrix - 01/18/23, on 08/05/23 recc'd getting dose #2 at pharmacy - Colon cancer screening - colonoscopy 2023 at [facility] during inpatient stay - 6 sessile polyps removed # [facility] - HCP 1: Braxton jimenez) - [phone] (scanned in EPIC) - Full code per pt on 05/22/23 Assessment & Plan (01/18/2023 4:56 PM EDT): # [facility] - Flu - 01/16/23 - COVID-19 - 06/10/20, 07/15/20, 03/03/21, 07/27/21, 01/25/22; on 01/18/23 recc'd getting new covid vaccine at pharmacy - PCV13 - 03/15/15 - PPV23 07/27/10 - Tdap - 10/19/22 - Shingrix - ordered 01/18/23 Assessment & Plan (10/19/2022 1:25 PM EDT): - Flu - 01/25/22 - COVID-19 - 06/10/20, 07/15/20, 03/03/21, 07/27/21, 01/25/22; on 10/19/22 recc'd getting another bivalent booster at pharmacy - PCV13 - 03/15/15 - PPV23 07/27/10 - Tdap - ordered 10/19/22 - Shingrix - can order at next visit Diarrhea, unspecified type 08/02/2022 1 04/21/2023 Assessment & Plan (02/01/2023 5:52 PM EDT): I suspect this time, he took too much laxative VSS Abdominal exam benign today No red flags in history or exam Diabetic nephropathy 07/20/2022 024 Generalized weakness 07/20/2022 024 COVID-19 07/14/2022 12/19/2023 Diarrhea 07/14/2022 12/19/2023 Hypothermia 05/29/2022 02/20/2024 Hypotension due to hypovolemia 05/29/2022 02/20/2024 Hypercapnic respiratory failure 05/20/2022 02/20/2024 Somnolence 05/20/2022 02/20/2024 Fall, initial encounter 03/30/2022 09/0 08/2023 Scapula fracture 03/30/2022 02/20/2024 Facial droop 03/30/2022 02/20/2024 Calcium oxalate kidney stones 03/22/2022 02/20/2024 Assessment & Plan (11/28/2022 9:06 AM EDT): No hematuria but h/o stones His worsening left sided back pain ? may be a recurrent stone Will order Renal U/S Altered mental status 03/11/20222023 Toxic metabolic encephalopathy 03/09/2022 02/20/2024 Depression 03/21/2021 12/19/2023 Closed fracture of occipital bone 02/02/2021 02/20/2024 Adult failure to thrive 12/14/2020 11/0 10/2023 Weakness 08/24/2020 12/19/2023 Assessment & Plan (08/24/2020 4:58 PM EDT): He reports generalized weakness that is worse than his baseline. Noting that he is having to use the walker more frequently. No complaints of pain and no cranial nerve deficits on exam. Last blood work has been a few months back, so we will start with BMP, CBC and TSH. Also encouraged him to drink plenty of fluids and try to get a good protein source in every day as his last noted albumin was low. He is currently doing PT 3 times per week. Diarrhea 08/24/2020 12/19/2023 Assessment & Plan (08/24/2020 5:00 PM EDT): He presents today with noted increased frequency/softness of stools. He categorizes them is mud-like consistency. No associated fevers, chills, or abdominal pain. He has been taking in a brat diet. No recent antibiotic use. He was taking MiraLAX but stopped about a week ago as his diarrhea developed. He does note feeling increasingly more weak. Still trying to get in a good protein source and drinking plenty of fluids. We discussed that his diarrhea is likely functional though ova and parasites have been sent for analysis given that he thought something might have been crawling from his stool. We will also repeat BMP and CBC today. We discussed starting Metamucil 1 packet or 1 tablet daily to start can increase to twice a day if needed. He will also try to titrate down the Imodium and use only at bedtime if needed at all. He is agreeable to the plan and will follow up as needed. Generalized abdominal pain 07/20/2020 0 05/17/2021 Assessment & Plan (07/20/2020 5:47 PM EDT): He presents today for evaluation given 24-48 hours of worsening right upper quadrant to generalized abdominal pain. Notes the pain was worse after out carrying groceries throughout the day last evening and had worsening acutely with food intake. He denies any fevers, chills, nausea, vomiting or diarrhea over the past 24 hours. We discussed that his symptoms are likely referred pain given that he has significant back pain, kyphoscoliosis, and chest/abdomen deformities. We also discussed the importance of small frequent meals as there is likely a component of abdominal distention and pain due to space limitation. He was advised to continue with 1/2 pack of MiraLAX daily given chronic constipation and noted stool burden on CT and x-ray on prior visits. We also discussed at length different foods that may cause more gas/abdominal bloating. No overt signs on exam today for acute infection or need for repeat imaging. Hematoma 07/08/2020 02/20/2024 Multiple falls 05/04/2020 02/20/2024 Closed fracture of multiple ribs of right side with routine healing 06/17/2019 02/20/2024 Regurgitation of stomach contents 12/30/2018 05/17/2021 Assessment & Plan (12/30/2018 4:38 PM EDT): -Specifically happened on two occassions w/ water. The pt feels like he did swallow the water all the way, but did not taste acid when it came back up. -Will write down further episodes and follow up w/ more details as he does not recall much about those events Pre-ulcerative corn or callous 12/30/2018 05/17/2021 Assessment & Plan (12/30/2018 4:43 PM EDT): -Multiple callous' noted at noted b/l at heals and lateral portion of feet. Shoes noted to be worn in such a way that it appears he walks on the outside of his feet. He is getting new sneakers shortly in the mail. -Will continue to monitor for now Other chest pain 12/30/2018 01/28/2020 Assessment & Plan (12/30/2018 4:46 PM EDT): -Was in the ED on 12/11 w/ chest pain that was central and non-radiating. EKG was unremarkable and troponin's were negative. Cardiac risk factors are age, DM2, and anxiety. -Lexiscan stress test High risk medications (not a nticoagulants) long-term use 06/20/2018 02/20/2024 Overview (06/20/2018): MAO inhibitor (tranylcypromine/Parnate) Urinary retention 03/13/2017 02/20/2024 Assessment & Plan (11/27/2022 5:11 PM EDT): No evidence of retention at this time Abnormal TSH 03/13/2017 05/17/2021 Segmental and somatic dysfun ction of lumbar region 01/31/2017 05/17/2021 Segmental and somatic dysfun ction of thoracic region 01/31/2017 05/17/2021 Segmental and somatic dysfun ction of sacral region 01/31/2017 05/17/2021 Frequency of urination 01/25/201701/25 Type 2 diabetes mellitus wit h diabetic nephropathy, without long-term current use of insulin 01/10/2017 02/20/2024 Overview (09/10/2018): normal A1c (<5.8) since 2013, off medication since 02/27 Currently getting DM care at [facility] Assessment & Plan (12/30/2018 4:40 PM EDT): -Wt 128lbs down from 131 lbs. The pt has been encouraged to gain weight. He was restricted his calories due to the fear of becoming a diabetic, but his A1c has now improved. -We discussed increasing his caloric intake w/ high fat foods and lean protein. Assessment & Plan (01/21/2017 9:45 AM EDT): Check labs today. Eye exam up to date. Diet counseling. Concern about weight loss, currently stablized. Heartburn 04/08/2012 02/20/2024 Intestinal infection due to Clostridium difficile 01/07/2007 02/20/2024 Encounters * This document contains information received from the source organization and may not represent a complete record from that organization. Date Type Department Care Team Description 06/24/2024 10:53 PM EDT - 06/26/2024 6:28 PM EDT Emergency [facility] [address] [place] [phone] Sakina Horne DO Devonshire, Colin, MD Porcaro, William A., MD Thomsen, Todd W., MD Schafer, Jesse, MD Wong, Kylie Mendes MD Discharge Disposition: Another Health Care Institution Not Defined 06/24/2024 2:30 PM EDT Office Visit 2nd [facility] [address] [facility] Nutrition [address] [facility] 2nd floor room [address] [place] [address] Stage 3b chronic kidney disease (CMS/HCC) [N18.32] (Primary Dx); Unintentional weight loss [R63.4] 06/24/2024 Travel 06/24/2024 Orders Only [facility] [address] [facility], [address] [place] [phone] Nadeen Cooper NP 06/23/2024 Telephone [facility] [address] [facility], [address] [place] [address] Oziel Beasley MD 06/19/2024 Telephone [facility] [address] [facility], [address] [place] [phone] Nadeen Cooper NP 06/18/2024 Travel 06/16/2024 1:00 PM EST Office Visit [facility] [address] [facility], [address] [place] [address] Nadeen Cooper NP Encounter for support and coordination of transition of care (Primary Dx); Suicidal ideation; Unsteady gait; Lumbar spondylolysis; Stage 3b chronic kidney disease (CMS/HCC); Pancytopenia (CMS/HCC) 06/16/2024 Billing Encounter [facility] Main Lab [address] [place] [address] Nadeen Cooper NP 06/16/2024 Orders Only [facility] [address] [facility], [address] [place] [phone] Nadeen Cooper NP Neoplasm of pancreatic duct (Primary Dx) 06/09/2024 Telephone [facility] [address] [facility], [address] [place] [address] Oziel Beasley MD HFU Request 06/08/2024 Travel 05/27/2024 Travel 05/19/2024 Telephone [facility] [address] [facility], [address] [place] [phone] Oziel Beasley MD Hospital follow up apt 05/18/2024 Telephone [facility] [address] [facility], [address] [place] [address] Oziel Beasley MD 05/18/2024 Telephone [facility] [address] [facility], [address] [place] [phone] John West MD 05/15/2024 Scan Document - View in [facility] ANCILLARY [address] [place] [phone] [phone] Abhijit Grant OT 05/13/2024 [facility] [place] [address], [address] [place] [address] Oziel Beasley MD Call back 05/12/[address] [facility] [address] [facility], [address] [place] [address] Oziel Beasley MD 05/01/2024 Telephone [facility] [address] [facility], [address] [place] [address] Oziel Beasley MD MATTHIAS Discharge 05/01/2024 Orders Only [facility] [address] [place] [address] Guillermo Youssef RN 04/30/2024 Travel 04/30/2024 Orders Only [facility] [address] [place] [address] Guillermo Youssef, RN 04/29/2024 Orders Only [facility] [address] [place] [address] Guillermo Youssef, RN 04/28/2024 Orders Only [facility] [address] [place] [address] Guillemro Youssef, RN 04/26/2024 Orders Only [facility] [address] [place] [address] Guillermo Youssef, RN 04/19/2024 Procedure Pass [facility] MRI [address] [place] [phone] 04/12/2024 2:10 AM EST - 04/30/2024 4:18 PM EST Hospital Encounter [place] [address] Nursing [address] [place] [phone] [id number] aCrroll Benoit MD Amirtharaj, MD Albert Mayen Sean M, MD Lu, MD Hany Barger Daniel P, MD Okoli, Unoma, MD Discharge Disposition: [facility] 04/12/2024 Travel 04/11/[address] [facility] [address] [facility], [address] [place] [phone] Oziel Beasley MD [facility] NT (Pain left side of body) 04/07/2024 Travel 04/02/[address] [facility] [address] [facility], [address] [place] [address] Oziel Beasley MD 03/31/2024 Refill [facility] [address] [facility], [address] [place] [phone] Oziel Beasley MD from Last 3 Months Immunizations Name Administration Dates Next Due COVID-19 Monovalent Vaccine (MODERNA) 07/15/2020 ,06/10/2020 COVID-19 Monovalent Vaccine (PFIZER) (Prior to April 2021) 03/03/2021 COVID-19 Jose-Sucrose Vaccin e (PFIZER) - Ages 5-11 yr 07/15/2020 COVID-19 Vaccine BIVALENT HARRISON JODIE (MODERNA) - Bivalent Formulation (as of December 2021) 01/25/2022,01/25/2022 COVID-19 Vaccine BIVALENT FO RMULATION (MODERNA) - Ages 6+ yr 01/25/2022 Covid-19 vaccine (COMIRNATY) (Pfizer) 12 yrs + 02/05/2023 Covid-19 vaccine (SPIKEVAX) (Moderna) 12 yrs + 01/18/2024,08/05/2023 Influenza Vaccine - EGG FREE (FLUBLOK) Influenza Vaccine - HIGH DOS E (FLUZONE HD) 01/16/2023 Influenza Vaccine - MDCK - M DV (FLUCELVAX MDV) 03/26/2019 Influenza Vaccine - MDCK - S DV (FLUCELVAX) 03/26/2019 Influenza Vaccine - QUAD ADJ UVANATED (FLUAD QUAD) 01/25/2022 Influenza Vaccine - STANDARD - PF (FLUZONE/FLUARIX/FLULAVAL/AFLURIA) 01/11/2016,01/13/2015,01/06/2009 Influenza Vaccine - STANDARD - SDV (FLUZONE/FLUARIX/FLULAVAL/AFLURIA) 01/10/2017 Influenza Vaccine - TRIV ADJ UVANTED (FLUAD TRIV) 01/06/2020 TDAP (Boostrix/Adacel) 10/19/2022,10/09/2019 influenza, unspecified formulation 02/02,01/23/2013,01/19/2011,02/07,02/04/2008 pneumococcal conjugate vacci ne, 13 valent (PCV 13) PF (Prevnar 13) 03/15/2015 pneumococcal conjugate vacci ne, 20-valent (PCV20) PF (Prevnar 20) 09/20/2023 pneumococcal polysaccharide vaccine, 23 valent (PPV23) (Pneumovax-23) 07/27/2010 varicella zoster vaccine rec ombinant (Shingrix) 09/23/2023,01/18/2023 Family History Medical History Relation Comments Heart disease Father Hypertension Father Prostate cancer Father Stroke Father Breast cancer Mother Depression Mother Heart disease Mother Intellectual Disability Other Relation Status Comments Father (Age 81) Mother (Age 76) Other Alive Sister Alive Social History Tobacco Use Types Packs/Day Years Used Date Smoking Tobacco: Never Passive Smoke Exposure: Never Smokeless Tobacco: Never Tobacco Cessation:Counseling Given: Not Answered Alcohol Use Standard Drinks/Week Comments Never 0 (1 standard drink = 0.6 oz pur e alcohol) [facility] Utilities Answer Date Recorded In the past 12 months has th e [employer], gas, oil, or water [employer] threatened to shut off services in your [...] 1 03/06/2024 PHQ-9 Total Score 5 03/06/2024 [place] Scale Score: Not on file Sex and Gender Information Value Date Recorded Sex Assigned at Male 07/18/2021 5:48 PM EDT Legal Sex Male 3:32 PM EST Gender Identity Male 07/18/2021 5:48 PM EDT Sexual Orientation Straight 05/21/2024 7: 28 AM EST Occupation Industry Job Start Date Job End Date Working part-time Not on file Not on file Not on jocy e Last Filed Vital Signs Vital Sign Reading Time Taken Comments Blood Pressure 111/58 06/26/2024 1:00 PM EDT Pulse 52 06/26/2024 1:00 PM EDT Temperature 36.7 ??C (98 ??F) 06/26/2024 12:42 PM EDT Respiratory Rate 17 06/26/2024 1:00 PM EDT Oxygen Saturation 96% 06/26/2024 1:00 PM EDT Inhaled Oxygen Concentration - - Weight 57.6 kg (127 lb) 06/16/2024 12:43 PM EST Height 165.1 cm (5' 5 ) 06/16/2024 12:43 PM EST Body Mass Index 21.13 06/16/2024 12:43 PM EST Plan of Treatment Upcoming Encounters Date Type Department Care Team (Late st Contact Info) Description 06/16/2024 Procedure Pass [facility] MRI [address] [place] [phone] 07/07/2024 1:30 PM EDT Appointment [facility] MRI [address] [place] [phone] 09/16/2024 2:00 PM EDT Office Visit [facility] [address] [facility], [address] [place] [phone] Oziel Beasley MD [address] [facility] [address] [place] [address] 10/07/2024 2:30 PM EDT Office Visit [address] [place] [address] [address] [facility] Nutrition [address] [facility] 2nd floor room [address] [place] [address] Felipe Bishop, RD [address] [place] [address] 10/22/2024 11:00 AM EDT Appointment [facility] [address] [place] [phone] John West MD [address] [place] [address] [place] [address] 11/03/2024 3:00 PM EDT Office Visit [facility] [address] [facility], [address] [place] [address] John West MD [address] [place] [address] [place] [address] Health Maintenance Due Date Last Done Comments Ophthalmology Exam 12/14/2020 12/15/2019, 0 06/05/2017, 09/06/2016 Hemoglobin A1C 08/19/2024 02/20/2024, 08/04/2023, 10/24/2023, Additional history exists Periodic Health Exam 12/18/2024 12/19/2023, 06/12/2023, 05/22/2023, Additional history exists Colon Cancer Screening 07/25/2025 , 06/08/2014, 11/06/2012, Additional history exists Tetanus Diphtheria and Pertussis Vaccines (TD and TDaP) (3 - Td or Tdap) 10/19/2032 10/19/2022, 10/09/2019 Pneumococcal Vaccine: 65+ Years Discontinued 09/20/2023, 03/15/2015, 07/27/2010 Shingrix (Zoster Recombinant) Vaccine Completed 09/23/2023, 01/18/2023 CoVid-19 Vaccine Completed 01/18/2024, , 02/05/2023, Additional history exists Influenza (Seasonal) Completed 01/18/2024, 01/16/2023, 01/25/2022, Additional history exists Hepatitis C Screening Completed 02/12/2024 HIB Vaccines Aged Out No longer eligi ble based on patient's age to complete this topic HPV Vaccines Aged Out No longer eligi ble based on patient's age to complete this topic Meningococcal Vaccine Aged Out No christal edliberto eligible based on patient's age to complete this topic Procedures Procedure Name Priority Date/Time Associated Diagnosis Comments CBC WITH AUTO DIFFERENTIAL Routine 06/26/2024 3:01 PM EDT TOXICOLOGY SCREEN, URINE (IN HOUSE) STAT 06/25/2024 5:37 AM EDT URINALYSIS WITH MICROSCOPIC WITH REFLEX TO URINE CULTURE STAT 06/25/2024 5:[address] HEAD WO CONTRAST STAT 06/25/2024 1 2:15 AM EDT EKG STAT 06/24/2024 11:48 PM EDT RED TOP STAT 06/24/2024 11:38 PM EDT LIGHT BLUE TOP STAT 06/24/2024 11:38 PM EDT GOLD TOP STAT 06/24/2024 11:38 PM EDT GOLD TOP STAT 06/24/2024 11:38 PM EDT TROPONIN I STAT 06/24/2024 11:38 PM EDT PHOSPHORUS STAT 06/24/2024 11:38 PM EDT MAGNESIUM STAT 06/24/2024 11:38 PM EDT RAINBOW DRAW STAT 06/24/2024 11:38 PM EDT DRUG SCREEN SERUM, LIMITED STAT 06/24/2024 11:38 PM EDT COMPREHENSIVE METABOLIC PANEL STAT 06/24/2024 11:38 PM EDT CBC WITH AUTO DIFFERENTIAL STAT 06/24/2024 11:38 PM EDT XR CHEST PORTABLE 1 VW STAT 06/24/2024 11:29 PM EDT CBC WITH AUTO DIFFERENTIAL Routine 06/16/2024 2:01 PM EST Pancytopenia (CMS/HCC) BASIC METABOLIC PANEL Routine 06/16/2024 2:01 PM EST Stage 3b chronic kidney disease (CMS/HCC) SARS-COV-2 / FLU / RSV RAPID PCR STAT 06/04/2024 9:[address] HEAD WO CONTRAST Routine 05/25/2024 3 :05 PM EST CBC WITH AUTO DIFFERENTIAL Routine 05/24/2024 2:50 PM EST URINALYSIS WITH MICROSCOPIC WITH REFLEX TO URINE CULTURE Routine 05/24/2024 1:19 PM EST COMPREHENSIVE METABOLIC PANEL Routine 05/24/2024 12:56 PM EST BASIC METABOLIC PANEL Routine 05/05/2024 4:34 PM EST SARS-COV-2 / FLU / RSV RAPID PCR STAT 05/03/2024 4:34 PM EST SARS-COV-2 / FLU / RSV RAPID PCR STAT 04/30/2024 1:10 PM EST BASIC METABOLIC PANEL Routine 04/29/2024 6:35 AM EST BASIC METABOLIC PANEL Routine 04/26/2024 11:15 AM EST CBC WITH AUTO DIFFERENTIAL Routine 04/26/2024 11:15 AM EST BASIC METABOLIC PANEL Routine 04/24/2024 1:17 PM EST CBC WITH AUTO DIFFERENTIAL Routine 04/24/2024 9:25 AM EST BASIC METABOLIC PANEL Routine 04/23/2024 5:59 AM EST CBC WITH AUTO DIFFERENTIAL Routine 04/23/2024 5:59 AM EST MANUAL DIFFERENTIAL Routine 04/22/2024 6 :46 AM EST BASIC METABOLIC PANEL Routine 04/22/2024 6:46 AM EST CBC WITH AUTO DIFFERENTIAL Routine 04/22/2024 6:46 AM EST MANUAL DIFFERENTIAL Routine 04/21/2024 8 :22 AM EST BASIC METABOLIC PANEL Routine 04/21/2024 8:22 AM EST CBC WITH AUTO DIFFERENTIAL Routine 04/21/2024 8:22 AM EST MRI CERVICAL SPINE WO CONTRAST Routine 04/20/2024 1:46 PM EST CREATININE, URINE, RANDOM Routine 04/20/2024 6:08 AM EST URINE ELECTROLYTES Routine 04/20/2024 6: 08 AM EST MANUAL DIFFERENTIAL Routine 04/20/2024 6 :06 AM EST BASIC METABOLIC PANEL Routine 04/20/2024 6:06 AM EST CBC WITH AUTO DIFFERENTIAL Routine 04/20/2024 6:06 AM EST BASIC METABOLIC PANEL Routine 04/19/2024 9:13 PM EST MANUAL DIFFERENTIAL Routine 04/19/2024 9 :04 AM EST BASIC METABOLIC PANEL Routine 04/19/2024 9:04 AM EST CBC WITH AUTO DIFFERENTIAL Routine 04/19/2024 9:04 AM EST URINALYSIS WITH MICROSCOPIC WITH REFLEX TO URINE CULTURE Routine 04/18/2024 2:19 PM EST CBC WITH AUTO DIFFERENTIAL Routine 04/18/2024 6:18 AM EST URINALYSIS WITH MICROSCOPIC WITH REFLEX TO URINE CULTURE Routine 04/17/2024 3:34 PM EST XR CHEST 1 VW Routine 04/17/2024 9:20 AM EST N-TERMINAL PROBNP Add-On 04/17/2024 7:5 5 AM EST BLOOD GAS, VENOUS Routine 04/17/2024 7:5 5 AM EST BASIC METABOLIC PANEL Routine 04/17/2024 7:[address] HEAD WO CONTRAST Routine 04/16/2024 1 1:51 PM EST LACTIC ACID, PLASMA Routine 04/16/2024 1 1:50 PM EST CBC WITH AUTO DIFFERENTIAL Routine 04/16/2024 11:50 PM EST TROPONIN I Routine 04/16/2024 11:34 PM EST ACUTE CARE PROFILE, VENOUS Routine 04/16/2024 11:34 PM EST BASIC METABOLIC PANEL Routine 04/16/2024 11:34 PM EST POCT GLUCOSE TELCOR Routine 04/16/2024 1 0:24 PM EST URINALYSIS WITH MICROSCOPIC WITH REFLEX TO URINE CULTURE Routine 04/16/2024 7:[address] ABDOMEN PELVIS W CONTRAST Routine 04/16/2024 3:18 PM EST XR SHOULDER 2+ VW LEFT Routine 04/16/2024 2:53 PM EST XR HUMERUS 2+ VW LEFT Routine 04/16/2024 2:53 PM EST BASIC METABOLIC PANEL Routine 04/14/2024 7:43 AM EST BASIC METABOLIC PANEL Routine 04/13/2024 1:49 PM EST MANUAL DIFFERENTIAL Routine 04/13/2024 5 :50 AM EST CBC WITH AUTO DIFFERENTIAL Routine 04/13/2024 5:50 AM EST BASIC METABOLIC PANEL Routine 04/13/2024 5:50 AM EST BASIC METABOLIC PANEL Routine 04/12/2024 3:52 PM EST URINE ELECTROLYTES Routine 04/12/2024 8: 37 AM EST OSMOLALITY, URINE Routine 04/12/2024 8:3 7 AM EST EKG STAT 04/12/2024 4:21 AM EST RED TOP STAT 04/12/2024 3:51 AM EST LIGHT BLUE TOP STAT 04/12/2024 3:51 AM EST GOLD TOP STAT 04/12/2024 3:51 AM EST GOLD TOP STAT 04/12/2024 3:51 AM EST BASIC METABOLIC PANEL Add-On 04/12/2024 3:51 AM EST OSMOLALITY STAT Add-on 04/12/2024 3:51 AM EST URINE ELECTROLYTES STAT Add-on 04/12/2024 3: 51 AM EST OSMOLALITY, URINE STAT Add-on 04/12/2024 3:5 1 AM EST TSH WITH REFLEX Add-On 04/12/2024 3:51 AM EST MANUAL DIFFERENTIAL STAT 04/12/2024 3 :51 AM EST RAINBOW DRAW STAT 04/12/2024 3:51 AM EST TOXICOLOGY SCREEN, URINE (IN HOUSE) STAT 04/12/2024 3:51 AM EST DRUG SCREEN SERUM, LIMITED STAT 04/12/2024 3:51 AM EST URINALYSIS WITH MICROSCOPIC WITH REFLEX TO URINE CULTURE STAT 04/12/2024 3:51 AM EST COMPREHENSIVE METABOLIC PANEL STAT 04/12/2024 3:51 AM EST CBC WITH AUTO DIFFERENTIAL STAT 04/12/2024 3:51 AM EST SARS-COV-2 / FLU / RSV RAPID PCR STAT 04/12/2024 3:49 AM EST XR CHEST 2 VW STAT 04/12/2024 3:10 AM EST HEMOGLOBIN A1C Routine 02/20/2024 9:42 AM EST HEPATITIS C ANTIBODY Routine 02/12/2024 2:36 PM EDT Need for hepatitis C screening test COLONOSCOPY PROCEDURE REPORT 07/26/2023 12:30 PM EDT DIABETES EYE EXAM Routine 12/15/2019 from Last 3 Months or Most Recently Relevant to Health Maintenance Results * (ABNORMAL) CBC auto differential (06/26/2024 3:01 PM EDT) Only the most recent of15 resultswithin the time period is included. WBC 3.51(L) 4.00 to 11.00 x 10*3u/L 10*3/uL 06/26/2024 3:09 PM EDT [facility] nRBC 0 0 - 0 /100 WBCs 06/26/2024 3:09 PM EDT [facility] RBC 3.27(L) 4.30 to 5.80 x 10*6/uL 10*6/uL 06/26/2024 3:09 PM EDT [facility] HGB 10.4(L) 13.5 to 17.5 g/dL g/dL 06/26/2024 3:09 PM EDT [facility] HCT 32.6(L) 41.0% to 53.0% % 06/26/2024 3:09 PM EDT [facility] MCV 99.7(H) 80.0 to 94.0 fL fL 06/26/2024 3:09 PM EDT [facility] MCH 31.8 26.0 - 33.0 pg 06/26/2024 3:09 PM [facility] MCHC 31.9 31.0 to 37.0 g/dL g/dL 06/26/2024 3:09 PM T [facility] PLT 128(L) 150 to 400 x 10*3u/l 10*3u/L 06/26/2024 3:09 PM T [facility] RDW-CV 12.9 11.5 - 14.5 % 06/26/2024 3:09 PM EDT [facility] Segmented % 55.8 30.0 - 85.0 % 06/26/2024 3:09 PM EDT [facility] ABS Neutrophil 1.96 1.20 - 9.30 10*3/uL 06/26/2024 3:09 PM [facility] Lymphocytes % 19.4 15.0 - 50.0 % 06/26/2024 3:09 PM [facility] ABS Lymphocyte 0.68 0.60 - 5.50 10*3u/L 06/26[facility]2024 [facility] Monocytes % 19.9(H) 2.0 - 12.0 % 06/26/2024 3:09 PM EDT [facility] ABS Monocytes 0.70 0.08 to 1.30 x 10*3u/L 10*3/uL 06/26/2024 3:09 PM EDT [facility] Eosinophils % 4.3 0.0 - 5.0 % 06/26/2024 [facility] ABS Eosinophils 0.15 0.00 to 0.68 x 10*3u/L 10*3/uL 06/26/2024 3:09 PM [facility] Basophil % 0.3 0.0 - 2.0 % 06/26/2024 3:09 PM EDT [facility] ABS Basophils 0.01 0.00 - 0.20 10*3/uL 06/26/2024 3:09 PM EDT [facility] IMM GRAN 0.3 0.0 - 1.0 % 06/26/2024 3:09 PM EDT [facility] ABS IMM GRAN 0.01 0.00 - 0.10 10*3/uL 06/26/2024 3:09 PM EDT [facility] Blood Venous blood / Unknown Venipuncture / Unknown 06/26/2024 3:01 PM EDT 06/26/2024 3:03 PM EDT us Sakina Horne DO LAB BLOOD ORDERABLES Final Result [facility] [address] [place] [address], [place] [phone] * (ABNORMAL) URINALYSIS WITH MICROSCOPIC WITH REFLEX TO URINE CULTURE (06/25/2024 5:37 AM EDT) Only the most recent of6 resultswithin the time period is included. Color Light Yellow 06/25/2024 5:48 AM EDT [facility] TURBIDITY Clear Clear 06/25/2024 5:48 AM EDT [facility] SG 1.026 1.002 - 1.030 06/25/2024 5:48 AM T [facility] pH, Urine 5.5 5.0 - 8.0 06/25/2024 5:48 AM EDT [facility] Albumin Negative Negative 06/25/2024 5:48 AM EDT [facility] Glucose Negative Negative 06/25/2024 5:48 AM EDT [facility] Ketones Negative Negative 06/25/2024 5:48 AM EDT [facility] Bile Negative Negative 06/25/2024 5:48 AM EDT [facility] Blood Negative Negative 06/25/2024 5:48 AM EDT [facility] WBC esterase Negative Negative 06/25/2024 5:48 AM EDT [facility] Nitrite Negative Negative 06/25/2024 5:48 AM EDT [facility] WBC 0-5 0 - 5 /HPF LAB URINALYSIS - AUTOMATED METHOD 06/25/2024 5:48 AM EDT [facility] RBC 0-2 0 - 5 /HPF LAB URINALYSIS - AUTOMATED METHOD 06/25/2024 5:48 AM EDT [facility] EPITH CELLS 0-5 0 - 5 /HPF LAB URINALYSIS - AUTOMATED METHOD 06/25/2024 5:48 AM EDT [facility] WBC Clumps None Seen None Seen /HPF LAB URINALYSIS - AUTOMATED METHOD 06/25/2024 5:48 AM EDT [facility] Mucous 1+(A) None Seen /LPF LAB URINALYSIS - AUTOMATED METHOD 06/25/2024 5:48 AM EDT [facility] URINE SEDIMENTATION REQUIRED? Yes LAB URINALYSIS - AUTOMATED METHOD 06/25/2024 5:48 AM EDT [facility] Urine Urine specimen collection, clean catch / Unknown Non-blood Collection / Unknown 06/25/2024 5:37 AM EDT 06/25/2024 5:40 AM EDT Sakina Horne DO LAB URINE ORDERABLES Final Result [facility] [address] [place] [address], * Toxicology screen, urine (06/25/2024 5:37 AM EDT) Only the most recent of2 resultswithin the time period is included. Amphetamine Screen, Ur Negative Negative 06/25/2024 6:43 AM EDT [facility] Cocaine Screen, Ur Negative Negative 2024 6:43 AM EDT [facility] Opiate, Ur Negative Negative 06/25/2024 6:43 AM EDT [facility] Barbiturate Screen, Ur Negative Negative 06/25/2024 6:43 AM EDT [facility] Benzodiazepines Screen, Ur Negative Negative 06/25/2024 6:43 AM EDT [facility] Methadone Screen, Ur Negative Negative 06/25/2024 6:43 AM EDT [facility] Cannabinoid Screen Ur Negative Negative 06/25/2024 6:43 AM EDT [facility] PCP Screen, Ur Negative Negative 06/25/2024 6:43 AM EDT [facility] Oxycodone Screen, Ur Negative Negative 06/25/2024 6:43 AM EDT [facility] Ecstasy Screen Ur Negative Negative 025 6:43 AM EDT [facility] Fentanyl Screen, Ur Negative Negative 06/25 6:43 AM EDT [facility] Urine Urine specimen collection, clean catch / Unknown Non-blood Collection / Unknown 06/25/2024 5:37 AM EDT 06/25/2024 5:40 AM EDT Narrative [facility] - 06/25/2024 6:43 AM EDT [facility] performs toxicology screens for the [...] present in the specimen. Note: According to [employer]'s instructions, when using a cutoff of 300 ng/mL for opiates, many individuals who have not used heroin but have taken a prescribed opiate-containing pharmaceutical, such as codeine or morphine, or have eaten poppyseeds may produce a positive screen. Sakina Horne DO LAB URINE ORDERABLES Final Result [facility] [address] [place] [address], * CT Head without Contrast - General (06/25/2024 12:15 AM EDT) Only the most recent of3 resultswithin the time period is included. Anatomical Region Laterality Modality Head N/A Computed [...] interpretation. Dictated: 06/25/2024 7:16 AM Report ID: [id number] Exam performed at [facility]. Report signed in external system at [facility] on 06/25/2024 07:16 Reported By: Geo Rey M.D (resident) ([id number]) Signed By: Sae Steen M.D. ([facility]) Narrative 06/25/2024 7:16 AM EDT RESPONSIBLE TIE WORKER: Sae Steen M.D. EXAMINATION: CT HEAD WO [...] normal. Advanced degenerative changes of the bilateral dfgi-eofgmpl-mcsv-right temporomandibular joints. ??Mild mucosal thickening of the maxillary sinuses and ethmoid air cells. Procedure Note Sae Steen MD - 06/25/2024 RESPONSIBLE TIE WORKER: Sae Steen M.D. EXAMINATION: CT HEAD WO [...] are normal. Advanced degenerativechanges of the bilateral pcct-ecboall-nmxz-right temporomandibular joints.Mild mucosal thickening of the maxillary [...] interpretation. Dictated: 06/25/2024 7:16 AM Report ID: [id number] Exam performed at [facility]. Report signed in external system at [facility] on 507:16 Reported By: Geo Rey M.D (resident) ([id number]) Signed By: Sae Steen M.D. ([facility]) Sakina Horne DO IMG CT PROCEDURES Fin al Result * EKG (06/24/2024 11:48 PM EDT) Only the most recent of2 resultswithin the time period is included. 06/24/2024 11:4 8 PM EDT Sakina Horne DO ECG ORDERABLES Final Result Performing Organization Address City/[facility]/ZIP Co de Phone Number [facility] [address] [place] [address] * Gold Top (06/24/2024 11:38 PM EDT) Only the most recent of4 resultswithin the time period is included. Blood Venous blood / Unknown Venipuncture / Unknown 06/24/2024 11:38 PM EDT 06/24/2024 11:47 PM EDT Sakina Horne DO LAB BLOOD ORDERABLES Final Result [facility] [address] [place] [address], [place] [phone] * Red Top (06/24/2024 11:38 PM EDT) Only the most recent of2 resultswithin the time period is included. Blood Venous blood / Unknown Venipuncture / Unknown 06/24/2024 11:38 PM EDT 06/24/2024 11:47 PM EDT [facility] LAB BLOOD ORDERABLES Final Result Performing Organization Address [facility]/ZIP Co de Phone Number [facility] [address] [place] [address], [place] [phone] * Light Blue Top (06/24/2024 11:38 PM EDT) Only the most recent of2 resultswithin the time period is included. Blood Venous blood / Unknown Venipuncture / Unknown 06/24/2024 11:38 PM EDT 06/24/2024 11:45 PM EDT [facility] LAB BLOOD ORDERABLES Final Result Performing Organization Address [facility] de Phone Number [facility] [address] [place] [address], [place] [phone] * Troponin I (06/24/2024 11:38 PM EDT) Only the most recent of2 resultswithin the time period is included. Troponin I <0.012 <0.034 ng/mL ng/mL 06/25/2024 12:25 AM EDT [facility] Comment:Note: Biotin supplem ents may cause bias with this assay result. Repeat testing after stopping supplements for at least 48 hours is suggested, if results do not fit the clinical picture. Blood Venous blood / Unknown Venipuncture / Unknown 06/24/2024 11:38 PM EDT 06/24/2024 11:47 PM EDT [facility] LAB BLOOD ORDERABLES Final Result Performing Organization Address [facility]/ZIP Co de Phone Number [facility] [address] [place] [address], [place] [phone] * Toxicology screen, serum (06/24/2024 11:38 PM EDT) Only the most recent of2 resultswithin the time period is included. Ethanol Lvl <10 mg/dL 06/25/2024 12:17 AM EDT [facility] Comment: Ethanol Reference Ranges: ? Normal: None Detected ? Toxic: >100 mg/dL Salicylate Lvl <1 <=35 mg/dL 06/25/2024 12:17 AM EDT [facility] ACETAMINOPHEN 19 <=30.0 ug/mL 06/25/2024 12:17 AM EDT [facility] Blood Venous blood / Unknown Venipuncture / Unknown 06/24/2024 11:38 PM EDT 06/24/2024 11:47 PM EDT Narrative [facility] - 06/25/2024 12:17 AM EDT Note: The serum drug screen does not include common theraputic drugs such as benzodiazepines, barbiturates, and tricyclics. Sakina Horne DO LAB BLOOD ORDERABLES Final Result Performing Organization Address City/[facility]/ZIP Co de Phone Number [facility] [address] [place] [address], * Phosphorus (06/24/2024 11:38 PM EDT) PHOSPHATE 3.2 2.5 - 4.5 mg/dL 06/25/2024 12:17 AM EDT [facility] Blood Venous blood / Unknown Venipuncture / Unknown 06/24/2024 11:38 PM EDT 06/24/2024 11:47 PM EDT Sakina Horne DO LAB BLOOD ORDERABLES Final Result Performing Organization Address City/[facility]/ZIP Co de Phone Number [facility] [address] [place] [address], [place] [phone] * Magnesium (06/24/2024 11:38 PM EDT) Magnesium Blood 2.2 1.6 - 2.3 mg/dL 06/25/2024 12:17 AM [facility] Blood Venous blood / Unknown Venipuncture / Unknown 06/24/2024 11:38 PM EDT 06/24/2024 11:47 PM EDT Sakina Horne DO LAB BLOOD ORDERABLES Final Result [facility] [address] [place] [address], * (ABNORMAL) Comprehensive metabolic panel (06/24/2024 11:38 PM EDT) Only the most recent of3 resultswithin the time period is included. Sodium 142 137 - 145 mmol/L 06/25/2024 12:17 AM [facility] Potassium 5.1 3.5 - 5.1 mmol/L 06/25/2024 12:17 AM [facility] CHLORIDE 109(H) 98.00 - 107.00 mmol/L 06/25/2024 12:17 AM [facility] CARBON DIOXIDE, TOTAL 28.0 22.0 - 30.0 mmol/L 06/25/2024 12:17 AM [facility] ANION GAP 5.0(L) 6 - 14 06/25/2024 12:17 AM [facility] GLUCOSE 122(H) 70 - 99 mg/dL 06/25/2024 12:17 AM [facility] CALCIUM 8.7 8.3 - 10.3 mg/dL 06/25/2024 12:17 AM [facility] CREATININE 1.3 0.7 - 1.3 mg/dL 06/25/2024 12:17 AM [facility] ALBUMIN 3.6 3.5 - 5.0 g/dL 06/25/2024 12:17 AM [facility] Bilirubin Total 0.4 0.2 - 1.3 mg/dL 06/25/2024 12:17 AM [facility] Comment:Serum Bilirubin leve ls may be falsely elevated in patients who are being treated with Eltrombopag due to interference with the assay. BILIRUBIN DIRECT 0.2 0.0 - 0.4 mg/dL 06/25/2024 12:17 AM EDT [facility] Comment:Serum Bilirubin leve ls may be falsely elevated in patients who are being treated with Eltrombopag due to interference with the assay. ALKALINE PHOSPHATASE 82 38 - 126 U/L 06/25/2024 12:17 AM T [facility] AST (SGOT) 40 15 - 46 U/L 06/25/2024 12:17 AM EDT [facility] ALT 24 <50 U/L 06/25/2024 12:17 AM T [facility] Comment:Note new reference r papito Protein, Total 5.9(L) 6.3 - 8.2 g/dL 06/25/2024 12:17 AM T [facility] Comment:Serum Total Protein levels may be falsely elevated in patients who are being treated with Eltrombopag due to interference with the assay. BUN 51(H) 9 - 20 mg/dL 06/25/2024 12:17 AM EDT [facility] eGFRcr 56 06/25/2024 12:17 AM T [facility] Comment: eGFR Reference Range: ? > 60 mL/min/1.73 Sq meter Blood Venous blood / Unknown Venipuncture / Unknown 06/24/2024 11:38 PM EDT 06/24/2024 11:47 PM EDT us Sakina Horne DO LAB BLOOD ORDERABLES Final Result [facility] [address] [place] [address], * XR Chest Portable 1 View (06/24/2024 [...] interpretation. Dictated: 06/25/2024 7:20 AM Report ID: [id number] Exam performed at [facility]. Report signed in external system at [facility] on 06/25/2024 07:20 Reported By: Geo Rey M.D (resident) ([id number]) Signed By: Sae Steen M.D. ([facility]) Narrative 06/25/2024 7:20 AM EDT RESPONSIBLE TIE WORKER: Sae Steen M.D. EXAMINATION: XR CHEST PORTABLE [...] Note Sae Steen MD - 06/25/2024 RESPONSIBLE TIE WORKER: Sae Steen M.D. EXAMINATION: XR CHEST PORTABLE [...] interpretation. Dictated: 06/25/2024 7:20 AM Report ID: [id number] Exam performed at [facility]. Report signed in external system at [facility] on 507:20 Reported By: Geo Rey M.D (resident) ([id number]) Signed By: Sae Steen M.D. ([facility]) Sakina Horne DO IMG XR PROCEDURES Fin al Result * (ABNORMAL) Basic metabolic panel (06/16/2024 2:01 PM EST) Only the most recent of18 resultswithin the time period is included. Sodium 143 137 - 145 mmol/L 06/16/2024 7:45 PM [facility] Potassium 5.2(H) 3.5 - 5.1 mmol/L 06/16/2024 7:45 PM [facility] CHLORIDE 105 98.00 - 107.00 mmol/L 06/16/2024 7:45 PM [facility] CARBON DIOXIDE, TOTAL 27.0 22.0 - 30.0 mmol/L 06/16/2024 7:45 PM [facility] ANION GAP 11.0 6 - 14 06/16/2024 7:45 PM [facility] GLUCOSE 76 70 - 99 mg/dL 06/16/2024 7:45 PM [facility] BUN 46(H) 9 - 20 mg/dL 06/16/2024 7:45 PM [facility] CREATININE 1.1 0.7 - 1.3 mg/dL 06/16/2024 7:45 PM [facility] CALCIUM 9.5 8.3 - 10.3 mg/dL 06/16/2024 7:45 PM [facility] eGFRcr 69 06/16/2024 7:45 PM [facility] Comment: eGFR Reference Range: ? > 60 mL/min/1.73 Sq meter Blood Venous blood / Unknown Venipuncture / Unknown 06/16/2024 2:01 PM EST 06/16/2024 2:01 PM EST Nadeen Cooper [employer] LAB BLOOD ORDERABLES Final Res ult [facility] [address] [place] [address], * (ABNORMAL) SARS-CoV-2 / Flu / RSV Rapid PCR (rapid at [facility]) (06/04/2024 9:30 AM EST) Only the most recent of4 resultswithin the time period is included. SARS-COV-2 Detected(A) Not Detected 06/04/2024 12:11 PM EST [facility] FLU A PCR Not Detected Not Detected 06/04/2024 12:11 PM EST [facility] FLU B PCR Not Detected Not Detected 06/04/2024 12:11 PM EST [facility] RSV PCR Not Detected Not Detected 06/04/2024 12:11 PM EST [facility] Swab Nasopharyngeal structure / Unknown Non-blood Collection / Unknown 06/04/2024 9:30 AM EST 06/04/2024 11:13 AM EST Narrative [facility] - 06/04/2024 12:11 PM EST Please visit this website for treatment options. [email or web address] The Cepheid Xpert?? SARS-CoV-2/ Flu/ RSV assay is intended for the qualitative detection of nucleic acid from SARS-CoV-2, Influenza A, Influenza B, and Respiratory Syncytial Virus. This assay has been authorized by the FDA under an Emergency Use Authorization (EUA) for use by clinical laboratories. Negative results must be combined with clinical observations and patient history. This assay has been authorized by the FDA under an Emergency Use Authorization (EUA) for use by clinical laboratories. us Braulio Bird MD LAB MICROBIOLOGY - GENERAL O RDERABLES Final Result Performing Organization Address City/[facility]/ZIP Co de Phone Number [facility] [address] [place] [address], [place] [phone] * (ABNORMAL) Manual Differential (04/22/2024 6:46 AM EST) Only the most recent of6 resultswithin the time period is included. Total Cells Counted 115 04/22/2024 12:39 PM [facility] Myelocytes 1.0(H) 0 - 0 % 04/22/2024 12:39 PM [facility] Segmented 56.0 30.0 - 85.0 % 04/22/2024 12:39 PM [facility] Lymphocytes 16.0 15.0 - 50.0 % 04/22/2024 12:39 PM [facility] Atypical Lymphocytes 2.0 0.0 - 5.0 % 04/22/2024 12:39 PM [facility] Monocytes 16.0(H) 2.0 - 12.0 % 04/22/2024 12:39 PM [facility] Eosinophils 6.0(H) 0.0 - 5.0 % 04/22/2024 12:39 PM [facility] Basophils 3.0(H) 0.0 - 2.0 % 04/22/2024 12:39 PM [facility] Platelet Estimate Normal Normal 025 12:39 PM [facility] RBC Morphology Present(A) None Present 04/22/2024 12:39 PM [facility] Poikilocytosis Slight(A) None Present 04/22/2024 12:39 PM [facility] Schistocytes Slight(A) None Present 04/22/2024 12:39 PM [facility] Teardrop Cells Slight(A) None Present 04/22/2024 12:39 PM [facility] Ovalocytes Slight(A) None Present 04/22/2024 12:39 PM [facility] Thaxton Cells Slight(A) None Present 04/22/2024 12:39 PM [facility] Acanthocytes Slight(A) None Present 04/22/2024 12:39 PM [facility] Blood Venous blood / Unknown Venipuncture / Unknown 04/22/2024 6:46 AM EST 04/22/2024 8:16 AM EST us Arlin Triplett MD LAB BLOOD ORDERABLES Final Res ult [facility] [address] [place] [address], * MRI CERVICAL SPINE WITHOUT CONTRAST (04/20/2024 1:46 PM EST) Anatomical Region Laterality Modality C-spine Magnetic Resonan ce 04/20/2024 1:15 PM EST Impressions 04/20/2024 3:09 PM EST Marked in limited MRI of the cervical spine due to patient motion artifact. ??There is evidence of cervical spondylosis with central canal narrowing most pronounced at the C3-4 and C4-5 levels. ??Neural foraminal patency cannot be assessed due to artifact from patient motion. Dictated: 04/20/2024 3:09 PM Report ID: [id number] Exam performed at [facility]. Report signed in external system at [facility] on 04/20/2024 15:09 Reported By: Donna Patel M.D. ([facility]) Signed By: Donna Patel M.D. ([facility]) Narrative 04/20/2024 3:09 PM EST RESPONSIBLE TIE WORKER: Donna Patel M.D. EXAMINATION: MRI CERVICAL SPINE WO CONTRAST CLINICAL INDICATION: Neck pain and left upper extremity radiculopathy. TECHNIQUE: Sagittal T1, T2, T2 with fat saturation, and axial gradient echo and T2 sequences, without intravenous contrast. COMPARISON: CT scan of the cervical spine dated 12/14/2023 FINDINGS: Image quality is markedly degraded by artifact from patient motion. Vertebral body alignment: Vertebral body alignment is preserved. Vertebral body heights: Normal Bone marrow: Bone marrow signal is difficult to accurately assess due to motion artifact. ??There is however evidence of discogenic endplate degenerative change at the C5-6 and probably at the C6-7 levels. Intervertebral discs: There is marked intervertebral disc space narrowing at C5- 6 and C6-7 and moderate intervertebral disc space narrowing at C3-4 and C4-5. Imaged portion of the posterior fossa and cervical cord: The spinal cord is suboptimally evaluated due to artifact from patient motion. Findings by level: C2-3: There is no significant central canal stenosis. ??The neural foramina cannot be adequately assessed due to motion artifact. C3-4: There is posterior disc osteophyte formation which results in at least moderate narrowing of the spinal canal. The neural foramina cannot be adequately assessed due to motion artifact. C4-5: There is at least moderate narrowing of the spinal canal based on the sagittal images. The neural foramina cannot be adequately assessed due to motion artifact. C5-6: There is mild narrowing of the spinal canal based on the sagittal images. The neural foramina cannot be adequately assessed due to motion artifact. C6-7: There is no significant central canal narrowing based on the sagittal images. The neural foramina cannot be adequately assessed due to motion artifact. C7-T1: There is no significant central canal stenosis based on the sagittal images. The neural foramina cannot be adequately assessed due to motion artifact. Procedure Note Hema Patel MD - 04/20/2024 RESPONSIBLE TIE WORKER: Donna Patel M.D. EXAMINATION: MRI CERVICAL SPINE WO CONTRAST CLINICAL INDICATION: Neck pain and left upper extremity radiculopathy. TECHNIQUE: Sagittal T1, T2, T2 with fat saturation, and axial gradient echo and [id number], without intravenous contrast. COMPARISON: CT scan of the cervical spine dated 12/14/2023 FINDINGS: Image quality is markedly degraded by artifact from patient motion. Vertebral body alignment: Vertebral body alignment is preserved. Vertebral body heights: Normal Bone marrow: Bone marrow signal is difficult to accurately assess due tomotion artifact. There is however evidence of discogenic endplatedegenerative change at the C5-6 and probably at the C6-7 levels. Intervertebral discs: There is marked intervertebral disc space narrowingat C5-6 and C6-7 and moderate intervertebral disc space narrowing at C3-4and C4-5. Imaged portion of the posterior fossa and cervical cord: The spinal cordis suboptimally evaluated due to artifact from patient motion. Findings by level: C2-3: There is no significant central canal stenosis. The neural foraminacannot be adequately assessed due to motion artifact. C3-4: There is posterior disc osteophyte formation which results in atleast moderate narrowing of the spinal canal. The neural foramina cannotbe adequately assessed due to motion artifact. C4-5: There is at least moderate narrowing of the spinal canal based onthe sagittal images. The neural foramina cannot be adequately assessed dueto motion artifact. C5-6: There is mild narrowing of the spinal canal based on the sagittalimages. The neural foramina cannot be adequately assessed due to motionartifact. C6-7: There is no significant central canal narrowing based on thesagittal images. The neural foramina cannot be adequately assessed due tomotion artifact. C7-T1: There is no significant central canal stenosis based on thesagittal images. The neural foramina cannot be adequately assessed due tomotion artifact. IMPRESSION: Marked in limited MRI of the cervical spine due to patient motionartifact. There is evidence of cervical spondylosis with central canalnarrowing most pronounced at the C3-4 and C4-5 levels. Neural foraminalpatency cannot be assessed due to artifact from patient motion. Dictated: 04/20/2024 3:09 PM Report ID: [id number] Exam performed at [facility]. Report signed in external system at [facility] on 515:09 Reported By: Donna Patel M.D. ([facility]) Signed By: Donna Patel M.D. ([facility]) Diego Leach MD IMG MRI PROCEDURES Final Res ult * (ABNORMAL) Urine electrolytes (04/20/2024 6:08 AM EST) Only the most recent of3 resultswithin the time period is included. SODIUM URINE 140(H) 30-90 mmol/L mmol/L 04/20/2024 9:31 AM EST [facility] POTASSIUM URINE 89.0 mmol/L 04/20/2024 9:31 AM EST [facility] Urine Urine specimen collection, clean catch / Unknown Non-blood Collection / Unknown 04/20/2024 6:08 AM EST 04/20/2024 8:05 AM EST Narrative [facility] - 04/20/2024 9:31 AM EST Reference range not established. Diego Leach MD LAB URINE ORDERABLES Final R esult Performing Organization Address [facility] Co de Phone Number [facility] [address] [place] [address], [place] [phone] * Creatinine, urine, random (04/20/2024 6:08 AM EST) Creatinine, Urine 115.2 mg/dL 04/20/2024 9:31 AM EST [facility] Urine Urine specimen collection, clean catch / Unknown Non-blood Collection / Unknown 04/20/2024 6:08 AM EST 04/20/2024 8:05 AM EST Narrative [facility] - 04/20/2024 9:31 AM EST Reference range not established. us Diego Leach MD LAB URINE ORDERABLES Final R esult Performing Organization Address [facility] Co de Phone Number [facility] [address] [place] [address], [place] [phone] * X-RAY CHEST 1 VIEW (04/17/2024 9:20 AM EST) Anatomical Region Laterality Modality Chest Computed Radiogr aphy 04/17/2024 9:05 AM EST Impressions 04/17/2024 10:57 AM EST Moderate bilateral pleural effusions with adjacent airspace opacities of the bilateral lung bases, which likely represent relaxation atelectasis. I, the attending physician, attest that I have performed and/or supervised the resident for the hendrix and critical components of this procedure. I have personally reviewed the images pertinent to this examination and agree with the interpretation. Dictated: 04/17/2024 10:57 AM Report ID: [id number] Exam performed at [facility]. Report signed in external system at [facility] on 04/17/2024 10:57 Reported By: Marianne Fernandez M.D. (resident) ([id number]) Signed By: Hoang Garza M.D. ([facility]) Narrative 04/17/2024 10:57 AM EST RESPONSIBLE TIE WORKER: Hoang Garza M.D. EXAMINATION: XR CHEST 1 VW CLINICAL INDICATION: Hypoxia. TECHNIQUE: AP upright projection of the chest obtained portably at 9:11 on 04/17/2024. COMPARISON: CT ABDOMEN PELVIS W CONTRAST dated 04/16/2024; XR CHEST 2 VW dated 04/12/2024; XR CHEST 1 VW dated 07/23/2023. FINDINGS: Lungs/Pleura: The lungs are suboptimally inflated. ??There are bilateral moderate pleural effusions with adjacent airspace opacities of the bilateral lung bases. ??There is no pneumothorax. Heart/Mediastinum: ??The cardiomediastinal silhouette is unchanged with tortuous aorta. Bones/Soft Tissues: There are degenerative changes in the imaged bones. ??The soft tissues are unremarkable. Procedure Note Hoang Garza MD - 04/17/2024 RESPONSIBLE TIE WORKER: Hoang Garza M.D. EXAMINATION: XR CHEST 1 VW CLINICAL INDICATION: Hypoxia. TECHNIQUE: AP upright projection of the chest obtained portably at 9:11 on04/17/2024. COMPARISON: CT ABDOMEN PELVIS W CONTRAST dated 04/16/2024; XR CHEST 2 VW dated106/13/2023; XR CHEST 1 VW dated 07/23/2023. FINDINGS: Lungs/Pleura: The lungs are suboptimally inflated. There are bilateralmoderate pleural effusions with adjacent airspace opacities of thebilateral lung bases. There is no pneumothorax. Heart/Mediastinum: The cardiomediastinal silhouette is unchanged withtortuous aorta. Bones/Soft Tissues: There are degenerative changes in the imaged bones.The soft tissues are unremarkable. IMPRESSION: Moderate bilateral pleural effusions with adjacent airspace opacities ofthe bilateral lung bases, which likely represent relaxation atelectasis. I, the attending physician, attest that I have performed and/or supervised the resident for the hendrix and critical components of this procedure. I have personally reviewed the images pertinent to this examination and agree with the interpretation. Dictated: 04/17/2024 10:57 AM Report ID: [id number] Exam performed at [facility]. Report signed in external system at [facility] on 510:57 Reported By: Marianne Fernandez M.D. (resident) ([id number]) Signed By: Hoang Garza M.D. (REIR) us Diego Leach MD IMG XR PROCEDURES Final Resu lt * (ABNORMAL) N-TERMINAL PROBNP (04/17/2024 7:55 AM EST) NT-PROBNP 319.0(H) <125.0 pg/mL 04/17/2024 11:35 AM EST [facility] Comment: Optimal NT-proBNP cut-points for the diagnosis or exclusion of acute heart failure. Cut-points: ? < 50 years ? 450 pg/mL ? 50-75 years ?900 pg/mL ? > 75 years ?1800 pg/mL Reference: NT-proBNP testing for the diagnosis and short-term prognosis in acute destabilized heart failure: an international pooled analysis of 1256 patients. Heart Journal 2006;27:330-337 Blood Venous blood / Unknown Venipuncture / Unknown 04/17/2024 7:55 AM EST 04/17/2024 8:01 AM EST Diego Leach MD LAB BLOOD ORDERABLES Final R esult [facility] [address] [place] [address], * (ABNORMAL) Blood gas, venous (04/17/2024 7:55 AM EST) PH OF VENOUS BLOOD 7.36 7.32 - 7.42 04/17/2024 8:09 AM EST [facility] pCO2, Ayan 49.5 41.0 - 51.0 mmHg 04/17/2024 8:09 AM EST [facility] pO2, Ayan 61.4(H) 38.0 - 42.0 mmHg 04/17/2024 8:09 AM EST [facility] HCO3, Venous 27.8(H) 24.0 - 26.0 mmol/L 04/17/2024 8:09 AM EST [facility] OXYGEN SATURATION (%) VENOUS 91.3(H) 60.0 - 75.0 % 04/17/2024 8:09 AM EST [facility] BASE EXCESS, VENOUS 1.7 -2.0 - 2.0 mmol/L 04/17/2024 8:09 AM EST [facility] Blood Venous blood / Unknown Venipuncture / Unknown 04/17/2024 7:55 AM EST 04/17/2024 8:01 AM EST us Arlin Triplett MD LAB BLOOD ORDERABLES Final Res ult Performing Organization Address City/[facility]/ZIP Co de Phone Number [facility] [address] [place] [address], [place] [phone] * (ABNORMAL) Lactic Acid, Plasma (04/16/2024 11:50 PM EST) LACTATE 0.6(L) 0.7 - 2.1 mmol/L 04/17/2024 12:05 AM EST [facility] Blood Venous blood / Unknown Venipuncture / Unknown 04/16/2024 11:50 PM EST 04/16/2024 11:52 PM EST us Arlin Triplett MD LAB BLOOD ORDERABLES Final Res ult Performing Organization Address [facility] de Phone Number [facility] [address] [place] [address], [place] [phone] * (ABNORMAL) Acute Care Profile, Venous (04/16/2024 11:34 PM EST) PH OF VENOUS BLOOD 7.34 7.32 - 7.42 04/16/2024 11:52 PM EST [facility] pCO2, Ayan 48.3 41.0 - 51.0 mmHg 04/16/2024 11:52 PM EST [facility] pO2, Ayan 117.0(H) 38.0 - 42.0 mmHg 04/16/2024 11:52 PM EST [facility] HCO3, Venous 25.9 24.0 - 26.0 mmol/L 04/16/2024 11:52 PM EST [facility] OXYGEN SATURATION (%) VENOUS 97.2(H) 60.0 - 75.0 % 04/16/2024 11:52 PM EST [facility] BASE EXCESS, VENOUS -0.3 -2.0 - 2.0 mmol/L 04/16/2024 11:52 PM EST [facility] Sodium,Whole Blood 141 135 - 148 mEq/L 04/16/2024 11:52 PM EST [facility] Potassium,Whole Blood 4.5 3.5 - 5.3 mEq/L 04/16/2024 11:52 PM [facility] CHLORIDE, WHOLE BLOOD 109(H) 98 - 107 mmol/L 04/16/2024 11:52 PM [facility] GLUCOSE, WHOLE BLOOD 96 70 - 110 mg/dL 04/16/2024 11:52 PM [facility] HCT,Whole Blood 33.9(L) 42.0 - 52.0 % 04/16/2024 11:52 PM [facility] CALCIUM IONIZED 5.00 4.57 - 5.21 mg/dL 04/16/2024 11:52 PM [facility] CALCIUM,NORMALI ZED 4.83 4.57 - 5.21 mg/dL 04/16/2024 11:52 PM [facility] LACTATE 0.5(L) 0.7 - 2.1 mmol/L 04/16/2024 11:52 PM [facility] Blood Venous blood / Unknown Venipuncture / Unknown 04/16/2024 11:34 PM EST 04/16/2024 11:50 PM EST us Arlin Triplett MD LAB BLOOD ORDERABLES Final Res ult [facility] [address] [place] [address], * POCT GLUCOSE TELCOR (04/16/2024 10:24 PM EST) POCT Glucose 100 70 to 100 mg/dL mg/dL LAB HEMETOLOGY METHOD 04/16/2024 10:26 PM [facility] Comment: Expected results for non-diabetics are: Before meals: 70 - 99 ??mg/dL 2 hour post meal: < 140 ?mg/dL Critical values: ??< 50 and > 400 ?? mg/dL ?? Limitations of the Nova Stat Strip Method are as follows: -The range of the Nova Stat Strip meter is 0-600 mg/dL. -Lipemic samples: Triglycerides > 750 mg/dL may effect results. -Not to be used with severely hypotensive or dehydrated patients. -Improper technique/dosing of test strip will yield false results. -Do not use blood collection tubes containing fluoride (smart top) as sodium fluoride interferes with test results. Blood 04/16/2024 10:2 4 PM EST 04/16/2024 10:26 PM EST Narrative [facility] - 04/16/2024 10:26 PM EST Manager Cancer: Jennifer Rico us Kevin Price MD POCT NO FREQUENCY ORDERABLES Fi nal Result [facility] [address] [place] [address], * CT ABDOMEN PELVIS WITH CONTRAST (04/16/2024 3:18 PM EST) Anatomical Region Laterality Modality Abdomen, Pelvis N/A Computed Tomogra phy 04/16/2024 3:05 PM EST Impressions 04/16/2024 4:03 PM EST Stable prostatomegaly. Thick walled urinary bladder which can be seen with chronic bladder outlet obstruction versus cystitis. ??This should be correlated with urinalysis. Worsening right pleural effusion. ??Small left pleural effusion. 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 ??Follow-up with MRCP. Slight interval improvement of the previously described mesenteric stranding in the left abdomen. ??Differential considerations include ongoing panniculitis. ??Neoplasm is less likely given interval improvement from the prior study from 12/14/2023. Stable hyperenhancing focus in the right hepatic lobe favoring flash fill hemangioma versus transient hepatic attenuation difference. Dictated: 04/16/2024 4:03 PM Report ID: [id number] Exam performed at [facility]. Report signed in external system at [facility] on 04/16/2024 16:03 Reported By: Maximo Sebastian M.D. (HARJIT) Signed By: Maximo Sebastian M.D. (HARJIT) Narrative 04/16/2024 4:03 PM EST RESPONSIBLE TIE WORKER: Maximo Sebastian M.D. EXAMINATION: CT ABDOMEN PELVIS W CONTRAST CLINICAL INDICATION: 78-year-old patient presenting with left-sided pain TECHNIQUE: Continuous axial images were obtained through the abdomen and the pelvis on a multidetector CT scanner with intravenous contrast. 2-D reconstructions were generated and reviewed. Orders: The patient received 100 mL of Omnipaque 350. Dose reduction technique: iterative reconstruction. COMPARISON: Prior abdominal CT dated 12/14/2023 FINDINGS: INFERIOR CHEST Atelectasis both lung bases with bronchiectasis stable from the prior study. ??There is a moderate size right pleural effusion. ??A tiny left pleural effusion is noted. ??There is circumferential thickening of the distal esophagus which may represent underlying esophagitis. ??The heart is normal in size. ??No pericardial effusion. ??There are no coronary atherosclerotic changes. ABDOMEN CT Liver: Hyperenhancing foci within the right hepatic lobe measuring 1.2 cm may represent flash fill hemangioma, transient hepatic attenuation difference or vascular malformation. ??This is stable compared with the prior exam. ??The liver margin is normal. ??There is normal enhancement of the portal vein and hepatic veins. Gallbladder / bile ducts: The gallbladder is normal. ??The common bile duct and intrahepatic ducts are normal. ??There are no calcified gallstones. ??No inflammatory changes Pancreas / pancreatic duct: No pancreatic ductal dilatation. ??1.5 cm low- attenuation in the anterior aspect of the mid pancreatic body is not significantly changed in size favoring intraductal papillary mucinous neoplasm. ??No associated ductal dilatation. Spleen: Numerous low-attenuation lesions measuring up to 2.1 cm are stable and may represent hemangiomas Adrenal glands: No adrenal lesions. Kidneys / ureters: Right kidney: Malrotated right kidney. ??No hydronephrosis or renal calculi. Left kidney: No hydronephrosis or discrete masses. ??Stable cyst in the upper pole the left kidney. ??No calculi. Gastrointestinal Tract: Increased stool volume throughout the colon. ??No evidence of bowel obstruction. ??The stomach is decompressed. ??There is no evidence of bowel obstruction or colitis. Vascular: Tortuous abdominal aorta without aneurysm. ??The aortic branches enhance normally. ??The there is an ectatic right common iliac artery measuring 1.8 cm. ??IVC is normal in caliber. ??The portal vein and hepatic veins enhance normally Retroperitoneum / mesentery / peritoneal cavity: No evidence of ascites. ??Stranding noted within the left colonic mesentery has improved since the prior study but remains present. ??This is seen best on series 3, image 72 and series 6, image 57. No mesenteric lymphadenopathy. ??There is no retroperitoneal lymphadenopathy. PELVIS CT Urinary bladder: Thick walled urinary bladder favors chronic bladder outlet obstruction changes. Reproductive organs: Enlarged, lobulated prostate containing coarse calcification. ??This is unchanged in size. SOFT TISSUES AND BONES Patient has had a right-sided herniorrhaphy. ??No abdominal wall masses. Severe dextroscoliosis at L1-L2 with extensive degenerative disc disease at L1- L2 with loss in height of the superior endplate at L2 and the inferior endplate at L1. ??This appearance is stable from the prior exam. ??This may be posttraumatic. ??No abnormality within the hip joints. Procedure Note Maximo Sebastian MD - 04/16/2024 RESPONSIBLE TIE WORKER: Maximo Sebastian M.D. EXAMINATION: CT ABDOMEN PELVIS W CONTRAST CLINICAL INDICATION: 78-year-old patient presenting with left-sided pain TECHNIQUE: Continuous axial images were obtained through the abdomen and the pelvison a multidetector CT scanner with intravenous contrast. 2-Dreconstructions were generated and reviewed. Orders: The patient received 100 mL of Omnipaque 350. Dose reduction technique: iterative reconstruction. COMPARISON: Prior abdominal CT dated 12/14/2023 FINDINGS: INFERIOR CHEST Atelectasis both lung bases with bronchiectasis stable from the priorstudy. There is a moderate size right pleural effusion. A tiny leftpleural effusion is noted. There is circumferential thickening of thedistal esophagus which may represent underlying esophagitis. The heart isnormal in size. No pericardial effusion. There are no coronaryatherosclerotic changes. ABDOMEN CT Liver: Hyperenhancing foci within the right hepatic lobe measuring 1.2 cmmay represent flash fill hemangioma, transient hepatic attenuationdifference or vascular malformation. This is stable compared with theprior exam. The liver margin is normal. There is normal enhancement ofthe portal vein and hepatic veins. Gallbladder / bile ducts: The gallbladder is normal. The common bile ductand intrahepatic ducts are normal. There are no calcified gallstones. Noinflammatory changes Pancreas / pancreatic duct: No pancreatic ductal dilatation. 1.5 cmlow- attenuation in the anterior aspect of the mid pancreatic body is notsignificantly changed in size favoring intraductal papillary mucinousneoplasm. No associated ductal dilatation. Spleen: Numerous low-attenuation lesions measuring up to 2.1 cm are stableand may represent hemangiomas Adrenal glands: No adrenal lesions. Kidneys / ureters: Right kidney: Malrotated right kidney. No hydronephrosis or renalcalculi. Left kidney: No hydronephrosis or discrete masses. Stable cyst in theupper pole the left kidney. No calculi. Gastrointestinal Tract: Increased stool volume throughout the colon. Noevidence of bowel obstruction. The stomach is decompressed. There is noevidence of bowel obstruction or colitis. Vascular: Tortuous abdominal aorta without aneurysm. The aortic branchesenhance normally. The there is an ectatic right common iliac arterymeasuring 1.8 cm. IVC is normal in caliber. The portal vein and hepaticveins enhance normally Retroperitoneum / mesentery / peritoneal cavity: No evidence of ascites.Stranding noted within the left colonic mesentery has improved since theprior study but remains present. This is seen best on series 3, image 72and series 6, image 57. No mesenteric lymphadenopathy. There is no retroperitoneallymphadenopathy. PELVIS CT Urinary bladder: Thick walled urinary bladder favors chronic bladderoutlet obstruction changes. Reproductive organs: Enlarged, lobulated prostate containing coarsecalcification. This is unchanged in size. SOFT TISSUES AND BONES Patient has had a right-sided herniorrhaphy. No abdominal wall masses. Severe dextroscoliosis at L1-L2 with extensive degenerative disc diseaseat L1-L2 with loss in height of the superior endplate at L2 and theinferior endplate at L1. This appearance is stable from the prior exam.This may be posttraumatic. No abnormality within the hip joints. IMPRESSION: Stable prostatomegaly. Thick walled urinary bladder which can be seen with chronic bladder outletobstruction versus cystitis. This should be correlated with urinalysis. Worsening right pleural effusion. Small left pleural effusion. 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 Follow-up with MRCP. Slight interval improvement of the previously described mesentericstranding in the left abdomen. Differential considerations includeongoing panniculitis. Neoplasm is less likely given interval improvementfrom the prior study from 12/14/2023. Stable hyperenhancing focus in the right hepatic lobe favoring flash fillhemangioma versus transient hepatic attenuation difference. Dictated: 04/16/2024 4:03 PM Report ID: [id number] Exam performed at [facility]. Report signed in external system at [facility] on 516:03 Reported By: Maximo Sebastian M.D. ([facility]) Signed By: Maximo Sebastian M.D. (HARJIT) us Kevin Price MD IMG CT PROCEDURES Final Result * X-RAY HUMERUS 2+ VIEWS LEFT (04/16/2024 2:53 PM EST) Anatomical Region Laterality Modality Humerus Left Digital Radiogra phy 04/16/2024 2:45 PM EST Impressions 04/16/2024 2:56 PM EST Moderate osteoarthritis. Dictated: 04/16/2024 2:56 PM Report ID: [id number] Exam performed at [facility]. Report signed in external system at [facility] on 04/16/2024 14:56 Reported By: Liu Portillo M.D. ([facility]) Signed By: Liu Portillo M.D. ([facility]) Narrative 04/16/2024 2:56 PM EST RESPONSIBLE TIE WORKER: Liu Portillo M.D. EXAMINATION: XR SHOULDER 2+ VW LEFT; XR HUMERUS 2+ VW LEFT CLINICAL INDICATION: Left shoulder pain TECHNIQUE: Three views of the left shoulder. ??AP and lateral views of the left humerus. COMPARISON: 12/31/2023 FINDINGS: There is narrowing of the glenohumeral joint space with mild subchondral sclerosis and osteophyte formation. ??There is narrowing of the subacromial space. ??There is no fracture or dislocation. ??The bones are demineralized. Procedure Note Liu Portillo MD - 04/16/2024 RESPONSIBLE TIE WORKER: Liu Portillo M.D. EXAMINATION: XR SHOULDER 2+ VW LEFT; XR HUMERUS 2+ VW LEFT CLINICAL INDICATION: Left shoulder pain TECHNIQUE: Three views of the left shoulder. AP and lateral views of the lefthumerus. COMPARISON: 12/31/2023 FINDINGS: There is narrowing of the glenohumeral joint space with mild subchondralsclerosis and osteophyte formation. There is narrowing of the subacromialspace. There is no fracture or dislocation. The bones aredemineralized. IMPRESSION: Moderate osteoarthritis. Dictated: 04/16/2024 2:56 PM Report ID: [id number] Exam performed at [facility]. Report signed in external system at [facility] on 514:56 Reported By: Liu Portillo M.D. ([facility]) Signed By: Liu Portillo M.D. ([facility]) Kevin Price MD IMG XR PROCEDURES Final Result * X-RAY SHOULDER 2+ VIEWS LEFT (04/16/2024 2:53 PM EST) Anatomical Region Laterality Modality Shoulder Left Digital Radiogra phy 04/16/2024 2:45 PM EST Impressions 04/16/2024 2:56 PM EST Moderate osteoarthritis. Dictated: 04/16/2024 2:56 PM Report ID: [id number] Exam performed at [facility]. Report signed in external system at [facility] on 04/16/2024 14:56 Reported By: Liu Portillo M.D. ([facility]) Signed By: Liu Portillo M.D. ([facility]) Narrative 04/16/2024 2:56 PM EST RESPONSIBLE TIE WORKER: Liu Portillo M.D. EXAMINATION: XR SHOULDER 2+ VW LEFT; XR HUMERUS 2+ VW LEFT CLINICAL INDICATION: Left shoulder pain TECHNIQUE: Three views of the left shoulder. ??AP and lateral views of the left humerus. COMPARISON: 12/31/2023 FINDINGS: There is narrowing of the glenohumeral joint space with mild subchondral sclerosis and osteophyte formation. ??There is narrowing of the subacromial space. ??There is no fracture or dislocation. ??The bones are demineralized. Procedure Note Liu Portillo MD - 04/16/2024 RESPONSIBLE TIE WORKER: Liu Portillo M.D. EXAMINATION: XR SHOULDER 2+ VW LEFT; XR HUMERUS 2+ VW LEFT CLINICAL INDICATION: Left shoulder pain TECHNIQUE: Three views of the left shoulder. AP and lateral views of the lefthumerus. COMPARISON: 12/31/2023 FINDINGS: There is narrowing of the glenohumeral joint space with mild subchondralsclerosis and osteophyte formation. There is narrowing of the subacromialspace. There is no fracture or dislocation. The bones aredemineralized. IMPRESSION: Moderate osteoarthritis. Dictated: 04/16/2024 2:56 PM Report ID: [id number] Exam performed at [facility]. Report signed in external system at [facility] on 514:56 Reported By: Liu Portillo M.D. ([facility]) Signed By: Liu Portillo M.D. ([facility]) Kevin Price MD IMG XR PROCEDURES Final Result * Osmolality, urine (04/12/2024 8:37 AM EST) Only the most recent of2 resultswithin the time period is included. Osmolality Urine 476 50 - 1,200 mOsm/Kg 04/12/2024 10:23 AM EST [facility] Urine Urine specimen collection, clean catch / Unknown Non-blood Collection / Unknown 04/12/2024 8:37 AM EST 04/12/2024 8:38 AM EST Nixon Osborne MD LAB URINE ORDERABLES Fi nal Result [facility] [address] [place] [address], * TSH with Reflex (04/12/2024 3:51 AM EST) Thyroid Stimulating Hormone 1.640 0.465 - 4.680 uIU/mL 04/12/2024 9:16 AM EST [facility] Blood Venous blood / Unknown Venipuncture / Unknown 04/12/2024 3:51 AM EST 04/12/2024 3:51 AM EST Nixon Osborne MD LAB BLOOD ORDERABLES Fi nal Result Performing Organization Address [facility] Co de Phone Number [facility] [address] [place] [address], [place] [phone] * (ABNORMAL) Osmolality (04/12/2024 3:51 AM EST) Osmolality Serum 271(L) 280 - 300 mOsm/Kg 04/12/2024 7:45 AM EST [facility] Blood Venous blood / Unknown Venipuncture / Unknown 04/12/2024 3:51 AM EST 04/12/2024 3:51 AM EST Jermaine Goodwin MD LAB BLOOD ORDERABLES Final Re sult Performing Organization Address [facility] de Phone Number [facility] [address] [place] [address], [place] [phone] * X-RAY CHEST 2 VIEWS (04/12/2024 3:10 AM EST) Anatomical Region Laterality Modality Chest Digital Radiogra phy 04/12/2024 2:50 AM EST Impressions 04/12/2024 6:21 AM EST Small right pleural effusion with adjacent airspace opacities of the right lung base, which could represent relaxation atelectasis versus pneumonia in the appropriate clinical setting. I, the attending physician, attest that I have performed and/or supervised the resident for the hendrix and critical components of this procedure. I have personally reviewed the images pertinent to this examination and agree with the interpretation. Dictated: 04/12/2024 6:21 AM Report ID: [id number] Exam performed at [facility]. Report signed in external system at [facility] on 04/12/2024 06:21 Reported By: Hermilo Garber M.D. (resident) ([id number]) Signed By: Mei Mccallum M.D. ([id number]) Narrative 04/12/2024 6:21 AM EST RESPONSIBLE TIE WORKER: Mei Mccallum M.D. EXAMINATION: XR CHEST 2 VW CLINICAL INDICATION: Chest pain TECHNIQUE: Two views of the chest. COMPARISON: XR CHEST 1 VW dated 07/23/2023; XR CHEST 2 VW dated 07/10/2023; XR CHEST 1 VW dated 07/04/2023; XR CHEST PORTABLE 1 VW dated 07/04/2023; XR CHEST 1 VW dated 08/07/2022; CT CHEST W CONTRAST dated 12/14/2023 FINDINGS: Lungs: There are right basilar airspace opacities. ??No pulmonary edema. Pleura: Small right pleural effusion. ??No pneumothorax. Heart/Mediastinum: ??The cardiomediastinal silhouette is unremarkable. Bones/Soft Tissues: ??There are degenerative changes in the imaged bones, typical for age. Soft tissues are normal. Procedure Note Mei Mccallum MD - 04/12/2024 RESPONSIBLE TIE WORKER: Mei Mccallum M.D. EXAMINATION: XR CHEST 2 VW CLINICAL INDICATION: Chest pain TECHNIQUE: Two views of the chest. COMPARISON: XR CHEST 1 VW dated 07/23/2023; XR CHEST 2 VW dated 07/10/2023; XR CHEST 1 VWdated 07/04/2023; XR CHEST PORTABLE 1 VW dated 07/04/2023; XR CHEST 1 VWdated 08/07/2022; CT CHEST W CONTRAST dated 12/14/2023 FINDINGS: Lungs: There are right basilar airspace opacities. No pulmonary edema. Pleura: Small right pleural effusion. No pneumothorax. Heart/Mediastinum: The cardiomediastinal silhouette is unremarkable. Bones/Soft Tissues: There are degenerative changes in the imaged bones,typical for age. Soft tissues are normal. IMPRESSION: Small right pleural effusion with adjacent airspace opacities of the rightlung base, which could represent relaxation atelectasis versus pneumoniain the appropriate clinical setting. I, the attending physician, attest that I have performed and/or supervised the resident for the hendrix and critical components of this procedure. I have personally reviewed the images pertinent to this examination and agree with the interpretation. Dictated: 04/12/2024 6:21 AM Report ID: [id number] Exam performed at [facility]. Report signed in external system at [facility] on 406:21 Reported By: Hermilo Garber M.D. (resident) ([id number]) Signed By: Mei Mccallum M.D. ([id number]) Jermaine Goodwin MD IMG XR PROCEDURES Final Resul t * (ABNORMAL) Hemoglobin A1c (02/20/2024 9:42 AM EST) Pathologist [facility] HBA1C 5.8(H) 4.1 - 5.7 % 02/20/2024 4:43 PM EST [facility] Comment: Prediabetic range: 5.7 - 6.4% Diabetic range: > or = 6.5% Blood Venous blood / Unknown Venipuncture / Unknown 02/20/2024 9:42 AM EST 02/20/2024 10:34 AM EST Braulio Bird MD LAB BLOOD ORDERABLES Final R esult Performing Organization Address City/[facility]/ZIP Co de Phone Number [facility] [address] [place] [address], * Hepatitis C antibody (02/12/2024 2:36 PM EDT) [facility] HEPATITIS C VIRUS AB Negative Negative 02/12/2024 7:58 PM EDT [facility] Blood Venous blood / Unknown Venipuncture / Unknown 02/12/2024 2:36 PM EDT 02/12/2024 2:36 PM EDT Alexsandra CHRISTENSEN LAB BLOOD ORDERABLES Berta l Result [facility] [address] [place] [address], * Colonoscopy procedure report (07/26/2023 12:30 PM EDT) 07/26/2023 12:3 0 PM EDT Narrative 07/26/2023 12:30 PM EDT Patient Name: Bedoya ??, ??Liu ?Procedure Date: 07/26/2023 12:30 PM Date of : 1945 ? Attending MD: MAURILIO SHOEMAKER MD Procedure: ? Colonoscopy Indications: ? Weight loss Providers: ? MAURILIO SHOEMAKER MD Referring MD: ?OZIEL BEASLEY MD Medicines: ? Propofol per Anesthesia Complications: ? No immediate complications. Procedure: ? Pre-Anesthesia Assessment: ? - Prior to the procedure, a History and Physical was ? performed, and patient medications, allergies and ? sensitivities were reviewed. The patient's tolerance of ? previous anesthesia was reviewed. ? - The risks and benefits of the procedure and the sedation ? options and risks were discussed with the patient. All ? questions were answered and informed consent was obtained. ? - ASA Grade Assessment: III - A patient with severe ? systemic disease. ? After I obtained informed consent, the scope was passed ? under direct vision. Throughout the procedure, the ? patient's blood pressure, pulse, and oxygen saturations ? were monitored continuously. The adult colonoscope was ? introduced through the anus and advanced to the cecum, ? identified by appendiceal orifice and ileocecal valve. The ? patient tolerated the procedure well. The quality of the ? bowel preparation was adequate to identify polyps 6 mm and ? larger in size. The colonoscopy was performed with ? moderate difficulty due to a redundant colon, significant ? looping and a tortuous colon. Successful completion of the ? procedure was aided by two handed pressure. ? Moderate Sedation: ? Moderate (conscious) sedation was administered by the endoscopy nurse ? and supervised by the endoscopist. The patient's oxygen saturation, ? heart rate, blood pressure and response to care were monitored. Total ? physician intraservice time was 46 minutes. Findings: ? The perianal and digital rectal examinations were normal. ? The rectum, recto-sigmoid colon, descending colon, splenic flexure, ? hepatic flexure and ascending colon appeared normal. ? A 13 mm polyp was found in the ileocecal valve. The polyp was sessile. ? The polyp was removed with a piecemeal technique using a hot snare. ? Resection and retrieval were complete. To close a defect after ? polypectomy, one hemostatic clip was successfully placed. There was no ? bleeding during, or at the end, of the procedure. ? Two sessile polyps were found in the proximal transverse colon. The ? polyps were 4 to 10 mm in size. These polyps were removed with a cold ? snare. Resection and retrieval were complete. ? Two sessile polyps were found in the mid transverse colon. The polyps ? were 4 to 6 mm in size. These polyps were removed with a cold snare. ? Resection and retrieval were complete. ? A 11 mm polyp was found in the mid transverse colon. The polyp was flat ? and sessile. The polyp was removed with a hot snare. Resection and ? retrieval were complete. To close a defect after polypectomy, one ? hemostatic clip was successfully placed. There was no bleeding during, ? or at the end, of the procedure. ? A bleeding mucosal tear as a result of scope trauma was found in the ? sigmoid colon. This measured 9 mm in length. To repair the defect, the ? tissue edges were approximated and one hemostatic clip was successfully ? placed. Closure of the defect was successful. There was no bleeding at ? the end of the procedure. ? The retroflexed view of the distal rectum and anal verge was normal and ? showed no anal or rectal abnormalities. ? Impression: ?- The rectum, recto-sigmoid colon, descending colon, ? splenic flexure, hepatic flexure and ascending colon are ? normal. ? - One 13 mm polyp at the ileocecal valve, removed ? piecemeal using a hot snare. Resected and retrieved. Clip ? was placed. ? - Two 4 to 10 mm polyps in the proximal transverse colon, ? removed with a cold snare. Resected and retrieved. ? - Two 4 to 6 mm polyps in the mid transverse colon, ? removed with a cold snare. Resected and retrieved. ? - One 11 mm polyp in the mid transverse colon, removed ? with a hot snare. Resected and retrieved. Clip was placed. ? - Minor mucosal tear in the sigmoid colon. Clip was placed. ? - The distal rectum and anal verge are normal on ? retroflexion view. ? - The findings are not adequate to explain his severe ? weight loss. Recommendation: ?- Await pathology results. ? - Mechanical soft diet. ? - Continue present medications. ? - Consider treatment for anxiety which could be a cause of ? his weight loss. ? - GI will sign off - please call with questions. ? Maurilio Shoemaker MD MAURILIO SHOEMAKER MD 07/26/2023 5:28:45 PM Number of Addenda: 0 Note Initiated On: 07/26/2023 12:30 PM Scope Withdrawal Time 0 hours 30 minutes 18 seconds Total Procedure Duration Time 0 hours 42 minutes 37 seconds Scope In: 2:18:57 PM Scope Out: 3:01:34 PM us Maurilio Shoemaker MD GI PROCEDURE ORDERABLES Final Result * HM DIABETES EYE EXAM (12/15/2019) us Genevieve Cheung MD HEALTH MAINTENANCE Final Resu lt from Last 3 Months or Most Recently Relevant to Health Maintenance Insurance [employer] ENHANCED MEDICARE A&B MEDICARE A&B [employer] [place] [employer] MEDICARE A&B MEDICARE A&B [place] [employer] MEDICARE A&B MEDICARE A&B [place] [employer] MEDICARE A&[place] MEDIC[place] MEDICARE A&B [place] [employer] Advance Directives * Full Code (Latest Code Status on File) Date Activated Date Inactivated Comments 04/30/2024 4:54 PM 06/11/2024 7:53 PM * Full Code Date Activated Date Inactivated Comments 04/30/2024 4:54 PM 04/30/2024 4:54 PM * Full Code Date Activated Date Inactivated Comments 04/12/2024 7:39 AM 04/30/2024 4:22 PM * Full Code Date Activated Date Inactivated Comments 02/18/2024 12:36 PM 03/02/2024 5:48 PM * Full Code Date Activated Date Inactivated Comments 12/14/2023 6:29 AM 12/15/2023 8:08 PM Healthcare Agents on File Name Relationship [facility] Communication Braxton Jc Friend Health Care Agent Chance Garcia Friend First Alternate Health Care Agent Care Teams Mower Sharpener Relationship Specialty Start Date End Date Oziel Beasley MD [address] [place] [address] PCP - General Internal Medicine 10/19/22
--- OUTSIDE RECORDS SUMMARY | 2024-06-26 20:12 | XMS_ITS | Encounter Summary ---
Author Organization [facility] Address [address] [place] [address] Care Team Providers Care Flight Crew Ordnanceman Name Role Phone Oziel Carrington MD Primary Care Provider +1- [phone] Reason for Visit * Reason Onset Date Comments HFU Request 06/09/2024 Encounter Details Date Type Department Care Team (Late st Contact Info) Description 06/09/2024 Telephone [facility] [address] [facility], [address] [place] [address] Oziel Carrington MD 5 [facility] [address] [place] [address] HFU Request Social History Tobacco Use Types Packs/Day Years Used Date Smoking Tobacco: Never Passive Smoke Exposure: Never Smokeless Tobacco: Never Alcohol Use Standard Drinks/Week Comments Never 0 (1 standard drink = 0.6 oz pur e alcohol) [facility] Utilities Answer Date Recorded In the past 12 months has e electric, gas, oil, or water company [...] 1 03/06/2024 PHQ-9 Total Score 5 03/06/2024 [place] Scale Score: Not on file Sex and [...] PM EST documented as of this encounter Miscellaneous Notes * Telephone Encounter - Gerry Ye Patton - 06/09/2024 1:37 PM EST Hi, Pt requires HFU appt. Best number for call back [phone] - before discharge On or after 06/11/2024 call [phone] instead - Pt's Proxy Name of the caller: Dawson Caller Status Provider Reason for Hospitalization: Hyponitremia Admitted Date: 04/12/2024 Discharge Date: 06/11/2024 Name of Hospital/Rehab facility:[facility] [phone] Practice ph (if applicable): Pt's ph: [phone] Case Doctor: Dr Bird Recommended time frame for HFU appt: 2 weeks Appointment Scheduled No Appt Date: N/a Message sent to [facility] Clinical Pool for advice. Caller notified that the turnaround time is 1-2 business days. documented in this encounter Plan of Treatment Upcoming Encounters Date Type Department Care Team (Late st Contact Info) Description 06/16/2024 Procedure Pass [facility] [address] [place] [address] [phone] 07/07/2024 1:30 PM EDT Appointment [address] [phone] [phone] 09/16/2024 2:00 PM EDT Office Visit [facility] 5 [facility], [address] [place] [address] Oziel Carrington MD [address] [place] [address] [place] [address] 10/07/2024 2:30 PM EDT Office Visit 2nd Floor [facility] [address] [facility] 330 [facility] 2nd floor room 240 [place] [address] [place] [address] 10/22/2024 11:00 AM EDT Appointment [address] [place] [address] [phone] John West MD 5 [facility] [address] [place] [address] 11/03/2024 3:00 PM EDT Office Visit [facility] [address] [place] [address], [address] [place] [address] John West MD [address] [place], [place] [phone] documented as of this encounter Visit Diagnoses Not on filedocumented in this encounter Additional Health Concerns Infection Onset Date Last Indicated Resolved Time Highly Infectious Respiratory Virus 06/04/202406/0406/16/2024 11:33 AM EST documented as of this encounter Care Teams Flight Crew Ordnanceman Relationship Specialty Start Date End Date Oziel Carrington MD [address] [place] [address] [place] [address] PCP - General Internal Medicine 10/19/22 documented as of this encounter
--- OUTSIDE RECORDS SUMMARY | 2024-06-26 20:12 | XMS_ITS | Encounter Summary ---
Author Organization [facility] Address [address] [place] [address] Care Team Providers Care Screw Down Name Role Phone Oziel Carrington MD Primary Care Provider +1- [phone] Reason for Referral * Diagnostic Imaging (Routine) - Authorized Specialty Diagnoses / Procedures Referred By Wesley nunez Referred To Contact Radiology Diagnoses Neoplasm of pancreatic duct Procedures MRI ABDOMEN WITH AND WITHOUT CONTRAST MRCP Nadeen Cooper NP [address] [facility] [address] [place] [address] Phone: tel: fax: Referral ID Status Reason Start Date Expiration Date V isits Requested Visits Authorized [id number] Authorized 06/16/2024 06/16/2025 1 1 Encounter Details Date Type Department Care Team (Late st Contact Info) Description 06/16/2024 Orders Only [facility] [address] [facility], [address] [place] [address] Nadeen Cooper NP [address] [facility] [address] [place] [address] Neoplasm of pancreatic duct (Primary Dx) Social History Tobacco Use Types Packs/Day Years Used Date Smoking Tobacco: Never Passive Smoke Exposure: Never Smokeless Tobacco: Never Alcohol Use Standard Drinks/Week Comments Never 0 (1 standard drink = 0.6 oz pur e alcohol) [facility] Utilities Answer Date Recorded In the past [...] 1 03/06/2024 PHQ-9 Total Score 5 03/06/2024 [place] Scale Score: Not on file Sex and [...] st Contact Info) Description 06/16/2024 Procedure Pass [facility] MRI [address] [place] [address] [phone] 07/07/2024 1:30 PM EDT Appointment [facility] [address] [place] [address] [phone] 09/16/2024 2:00 PM EDT Office Visit [facility] [address] [place] [address], [address] [place] [address] Oziel Carrington MD [address] [place] [address] [place] [address] 10/07/2024 2:30 PM EDT Office Visit 2nd Floor [facility] [address] [facility] Nutrition 330 [facility] 2nd floor room 240 [place] [address] Felipe Bishop, CYNDY [address] [place] [address] 10/22/2024 11:00 AM EDT Appointment [facility] 330 [place] [address] [phone] John West MD [address] [place] [address] [place] [address] 11/03/2024 3:00 PM EDT Office Visit [facility] [address] [place] [address], [address] [place] [address] John West MD [address] [place] [address] [place] [address] Scheduled Orders Name Type Priority Associated Diagnoses Orde r Schedule MRI ABDOMEN WITH AND WITHOUT CONTRAST MRCP Imaging Routine Neoplasm of pancreatic duct Expected: 06/16/2024, Expires: 12/17/2025 documented as of this encounter Visit Diagnoses Diagnosis Neoplasm of pancreatic duct- Primary documented in this encounter Additional Health Concerns Infection Onset Date Last Indicated Resolved Time Highly Infectious Respiratory Virus 06/04/202406/0406/16/2024 11:33 AM EST documented as of this encounter Care Teams Screw Down Relationship Specialty Start Date End Date Oziel Carrington MD [address] [facility] [address] [place] [address] PCP - General Internal Medicine 10/19/22 documented as of this encounter
--- OUTSIDE RECORDS SUMMARY | 2024-06-26 20:12 | XMS_ITS | Encounter Summary ---
Author Organization [facility] Address [address] [facility] [place] [address] Care Team Providers Care Emblem Maker Name Role Phone Oziel Carrington MD Primary Care Provider +1- [phone] Encounter Details Date Type Department Care Team ([facility] st Contact Info) Description 05/20/2022 Scan Document - View in Chart [facility] [address] [place] [address] Roslyn Don MD [address] [place] [address] Social History Tobacco Use Types Packs/Day Years [...] PM EST documented as of this encounter Functional Status [...] st Contact Info) Description 06/16/2024 Procedure Pass [facility] [address] [place] [address] [phone] 07/07/2024 1:30 PM EDT Appointment [address] [address] [phone] 09/16/2024 2:00 PM EDT Office Visit [facility] [address] [facility], [address] [place] [address] Oziel Carrington MD [address] [place] [address] [place] [address] 10/07/2024 2:30 PM EDT Office Visit 2nd [facility] [address] [facility] 330 [facility] 2nd floor room 240 [place] [address] Felipe Bishop, RD [address] [place] [address] 10/22/2024 11:00 AM EDT Appointment [facility] 330 [place] [address] [phone] John West MD [address] [place] [address] [place] [address] 11/03/2024 3:00 PM EDT Office Visit [facility] [address] [facility], [address] [place] [address] John West MD [address] [place] [address] documented as of this encounter Visit Diagnoses Not on filedocumented in this encounter Additional Health Concerns Infection Onset Date Last Indicated Resolved Time Highly Infectious Respirator y Virus (Rule Out) 05/17/2022 05/17/2022 05/20/2022 6:[address] Highly Infectious Respiratory Virus 07/03/202207/0307/13/2022 3:12 PM [...] documented as of this encounter Care Teams Emblem Maker Relationship Specialty Start Date End Date Oziel Carrington MD [address] [place] [address] PCP - General Internal Medicine 10/19/22 documented as of this encounter
--- OUTSIDE RECORDS SUMMARY | 2024-06-26 20:12 | XMS_ITS | Encounter Summary ---
Author Organization [facility] Address 330 [facility] [place] [address] Care Team Providers Care Barrel Painter Name Role Phone Oziel Carrington MD Primary Care Provider +1- [phone] Encounter Details Date Type Department Care Team (Late st Contact Info) Description 06/24/2024 Orders Only [facility] [address] [facility], [address] [place] [address] Nadeen Cooper NP [address] [facility] [address] [place] [address] Social History Tobacco Use Types Packs/Day Years Used Date Smoking Tobacco: Never Passive Smoke Exposure: Never Smokeless Tobacco: Never Alcohol Use Standard Drinks/Week Comments Never 0 (1 standard drink = 0.6 oz pur e alcohol) [facility] Utilities Answer Date Recorded In the past 12 months has e [employer], gas, oil, or water [employer] threatened to shut off services in your [...] 1 03/06/2024 PHQ-9 Total Score 5 03/06/2024 [place] Scale Score: Not on file Sex and [...] st Contact Info) Description 06/16/2024 Procedure Pass [facility] 330 [place] [address] [phone] 07/07/2024 1:30 PM EDT Appointment [facility] [address] [place] [address] [phone] 09/16/2024 2:00 PM EDT Office Visit [facility] [address] [facility], [address] [place] [address] Oziel Carrington MD 5 [facility] [address] [place] [address] 10/07/2024 2:30 PM EDT Office Visit 2nd Floor [facility] [address] [facility] Nutrition 330 [facility] 2nd floor room [address] [place] [address] Felipe Bishop, CYNDY [address] [place] [address] 10/22/2024 11:00 AM EDT Appointment [facility] 330 [place] [address] [phone] John West MD [address] [place] [address] [place] [address] 11/03/2024 3:00 PM EDT Office Visit [facility] [address] [facility], [address] [place] [address] John West MD [address] [place] [address] [place] [address] documented as of this encounter Visit Diagnoses Not on filedocumented in this encounter Care Teams Barrel Painter Relationship Specialty Start Date End Date Oziel Carrington MD [address] [place] [address] [place] [address] PCP - General Internal Medicine 10/19/22 documented as of this encounter
--- OUTSIDE RECORDS SUMMARY | 2024-06-26 20:12 | XMS_ITS | Encounter Summary ---
Author Organization [facility] Address [address] [facility] [place] [address] Care Team Providers Care Industrial Technology Education Teacher Name Role Phone Oziel Carrington MD Primary Care Provider +1- [phone] Encounter Details Date Type Department Care Team (Late st Contact Info) Description 05/09/2023 Scan Document - View in Chart [facility] Department [address] [place] [phone] Provider, MD Boo [address] [place], [place] [address] Social History Tobacco Use Types Packs/Day Years [...] st Contact Info) Description 06/16/2024 Procedure Pass [facility] [address] [place] [address] [phone] 07/07/2024 1:30 PM EDT Appointment [address] [address] [phone] 09/16/2024 2:00 PM EDT Office Visit [facility] 5 [facility], [address] [place] [address] Oziel Carrington MD [address] [place] [address] [place] [address] 10/07/2024 2:30 PM EDT Office Visit 2nd [facility] [address] [facility] 330 [facility] 2nd floor room 240 [place] [address] Felipe Bishop, RD [address] [place] [address] 10/22/2024 11:00 AM EDT Appointment [facility] 330 [place] [address] [phone] John West MD [address] [place] [address] 11/03/2024 3:00 PM EDT Office Visit [facility] [address] [place] [address], [address] [place] [address] John West MD [address] [place] [address] documented as of this encounter Visit Diagnoses [...] documented as of this encounter Care Teams Industrial Technology Education Teacher Relationship Specialty Start Date End Date Oziel Carrington MD [address] [place] [address] PCP - General Internal Medicine 10/19/22 documented as of this encounter
--- OUTSIDE RECORDS SUMMARY | 2024-06-26 20:12 | XMS_ITS | Encounter Summary ---
Author Organization [facility] Address 330 [facility] [place] [address] Care Team Providers Care Manager Payment Name Role Phone Oziel Carrington MD Primary Care Provider +1- [phone] Encounter Details Date Type Department Care Team (Late st Contact Info) Description 05/17/2022 Scan Document - View in Chart [facility] 330 [place] [address] Kylie Johnston MD 330 [place] [address] Social History Tobacco Use Types Packs/Day Years [...] st Contact Info) Description 06/16/2024 Procedure Pass [facility] 330 [place] [address] [phone] 07/07/2024 1:30 PM EDT Appointment [facility] 330 [place] [address] [phone] 09/16/2024 2:00 PM EDT Office Visit [facility] 725 [facility], [address] [place] [address] Oziel Carrington MD [address] [place] [address] [place] [address] 10/07/2024 2:30 PM EDT Office Visit 2nd [facility] [address]240 [facility] 330 [facility] 2nd floor room 240 [place] [address] Felipe Bishop, CYNDY 330 [place] [address] 10/22/2024 11:00 AM EDT Appointment [facility] DXA 330 [place] [address] [phone] John West MD [address] [place] [address] [place] [address] 11/03/2024 3:00 PM EDT Office Visit [facility] [address] [place] [address], [address] [place] [address] John West MD [address] [place] [address] [place] [address] documented as of this encounter Visit Diagnoses [...] documented as of this encounter Care Teams Manager Payment Relationship Specialty Start Date End Date Oziel Carrington MD [address] [place], [place] [phone] PCP - General Internal Medicine 10/19/22 documented as of this encounter
--- OUTSIDE RECORDS SUMMARY | 2024-06-26 20:12 | XMS_ITS | Encounter Summary ---
Author Organization [facility] Address 330 [facility] [place] [address] Care Team Providers Care Votator Machine Operator Name Role Phone Oziel Carrington MD Primary Care Provider +1- [phone] Encounter Details Date Type Department Care Team (Latest Contact Info) Description 06/24/2024 Travel Social History Tobacco Use Types Packs/Day Years Used Date Smoking Tobacco: Never Passive Smoke Exposure: Never Smokeless Tobacco: Never Alcohol Use Standard Drinks/Week Comments Never 0 (1 standard drink = 0.6 oz pur e alcohol) [facility] Utilities Answer Date Recorded In the past 12 months has e electric, gas, oil, or water [employer] threatened to shut off services in your [...] 1 03/06/2024 PHQ-9 Total Score 5 03/06/2024 [place] Scale Score: Not on file Sex and [...] st Contact Info) Description 06/16/2024 Procedure Pass [facility] MRI 330 [place] [address] [phone] 07/07/2024 1:30 PM EDT Appointment [facility] 330 [place] [address] [phone] 09/16/2024 2:00 PM EDT Office Visit [facility] 725 [facility], [address] [place] [address] Oziel Carrington MD [address] [place] [address] [place] [address] 10/07/2024 2:30 PM EDT Office Visit 2nd Floor [facility] [address]240 [facility] Nutrition 330 [facility] 2nd floor room 240 [place] [address] Felipe Bishop, CYNDY 330 [place] [address] 10/22/2024 11:00 AM EDT Appointment [facility] 330 [place] [address] [phone] John West MD [address] [place] [address] [place] [address] 11/03/2024 3:00 PM EDT Office Visit [facility] [address] [place] [address], [address] [place] [address] John West MD [address] [place] [address] [place] [address] documented as of this encounter Visit Diagnoses Not on filedocumented in this encounter Care Teams Votator Machine Operator Relationship Specialty Start Date End Date Oziel Carrington MD [address] [place] [address] [place] [address] PCP - General Internal Medicine 10/19/22 documented as of this encounter
--- OUTSIDE RECORDS SUMMARY | 2024-06-26 20:13 | XMS_ITS | Encounter Summary ---
Author Organization [facility] Address 330 [facility] [place] [address] Care Team Providers Care Bottle Cleaner Name Role Phone Oziel Carrington MD Primary Care Provider +1- [phone] Encounter Details Date Type Department Care Team (Late Contact Info) Description 06/28/2022 Billing Encounter [facility] [address] [facility] [address] [place] [address] Shelley Mederos, JUNIOR [address] [place] [address] Social History Tobacco Use Types Packs/Day Years [...] Orientation Straight 05/21/2024 7: 28 AM EST documented as of this encounter Functional Status * Because of a physical, mental, or emotional condition, does this person have difficulty doing errands alone such as visiting a doctor's office or shopping? Answer Date of Assessment Author No 03/23/2021 1:09 PM EST documented as of this encounter Plan of Treatment Upcoming Encounters Date Type Department Care Team (Late Contact Info) Description 06/16/2024 Procedure Pass [facility] 330 [place] [address] [phone] 07/07/2024 1:30 PM EDT Appointment [facility] 330 [place] [address] [phone] 09/16/2024 2:00 PM EDT Office Visit [facility] 725 [facility], [address] [place] [address] Oziel Carrington MD [address] [place] [address] [place] [address] 10/07/2024 2:30 PM EDT Office Visit 2nd Floor [facility] [address]240 [facility] [address] floor room 240 [place] [address] Felipe Bishop, CYNDY 330 [place] [address] 10/22/2024 11:00 AM EDT Appointment [facility] DXA 330 [place] [address] [phone] John West MD [address] [place] [address] 11/03/2024 3:00 PM EDT Office Visit [facility] 5 [facility], [address] [place] [address] John West MD [address] [place] [address] documented as of this encounter Visit Diagnoses [...] documented as of this encounter Care Teams Bottle Cleaner Relationship Specialty Start Date End Date Oziel Carrington MD [address] [place] [address] PCP - General Internal Medicine 10/19/22 documented as of this encounter
--- OUTSIDE RECORDS SUMMARY | 2024-06-26 20:13 | XMS_ITS | Encounter Summary ---
Author Organization [facility] Address 330 [place] [address] Care Team Providers Care Bicycle Courier Name Role Phone Oziel Carrington MD Primary Care Provider +1- [phone] Reason for Visit * Reason Onset Date Comments Call back 05/13/2024 Encounter Details Date Type Department Care Team ([facility] st Contact Info) Description 05/13/[address] [place] [phone] Oziel Carrington MD [address] [place] [address] [place] [address] Call back Social History Tobacco Use Types Packs/Day Years Used Date Smoking Tobacco: Never Passive Smoke Exposure: Never Smokeless Tobacco: Never Alcohol Use Standard Drinks/Week Comments Never 0 (1 standard drink = 0.6 oz pur e alcohol) [facility] Utilities Answer Date Recorded In the past [...] 1 03/06/2024 PHQ-9 Total Score 5 03/06/2024 [place] Scale Score: Not on file Sex and [...] encounter Miscellaneous Notes * Telephone Encounter - Fabby Pereyra - 05/13/2024 3:04 PM EST Hi, Pt has a question/message for their PCP. Provider Name: Dr Carpio Best number for call back: [phone] Best time to call back: Anytime Name of the caller: Cody Funez Caller Status I.e. Patient/Pt Contact/Proxy/Provider: Pt Is this question in regard to your last visit? New Pt Question/Message: Pt is requesting to establish care with Dr Carpio and have appt for pain in left shoulder and lower back please Has the patient requested a call back? Yes Thank you, CvL documented in this encounter Plan of Treatment Upcoming Encounters Date Type Department Care Team (Late st Contact Info) Description 06/16/2024 Procedure Pass [address] [address] [phone] 07/07/2024 1:30 PM EDT Appointment [address] [address] [phone] 09/16/2024 2:00 PM EDT Office Visit [facility] [address] [place] [address], [address] [place] [address] Oziel Carrington MD [address] [place] [address] 10/07/2024 2:30 PM EDT Office Visit [address] [place] [address] [address] [facility] 330 [facility] 2nd floor room 240 [place] [address] Felipe Bishop, CYNDY [address] [place] [address] 10/22/2024 11:00 AM EDT Appointment [address] [address] [phone] John West MD [address] [place] [address] [place] [address] 11/03/2024 3:00 PM EDT Office Visit [facility] [address] [facility], [address] [place] [address] John West MD [address] [facility] [address] [place] [address] documented as of this encounter Visit Diagnoses Not on filedocumented in this encounter Additional Health Concerns Infection Onset Date Last Indicated Resolved Time Highly Infectious Respiratory Virus 06/04/202406/0406/16/2024 11:33 AM EST documented as of this encounter Care Teams Bicycle Courier Relationship Specialty Start Date End Date Oziel Carrington MD [address] [facility] [address] [place] [address] PCP - General Internal Medicine 10/19/22 documented as of this encounter
--- OUTSIDE RECORDS SUMMARY | 2024-06-26 20:13 | XMS_ITS | Encounter Summary ---
Author Organization [facility] Address 330 [facility] [place] [address] Care Team Providers Care J2Ee Engineer Name Role Phone Oziel Carrington MD Primary Care Provider +1- [phone] Encounter Details Date Type Department Care Team (Late st Contact Info) Description 07/20/2022 Scan Document - View in Chart [facility] 330 [place] [address] Nixon Pepe MD 330 [facility] [place], [place] [phone] Social History Tobacco Use Types Packs/Day Years [...] suspected to have Coronavirus/COVID-19? No / Unsure 07/20/2022 4:07 PM EDT documented as of this encounter Functional Status [...] st Contact Info) Description 06/16/2024 Procedure Pass [facility] 330 [place] [address] [phone] 07/07/2024 1:30 PM EDT Appointment [facility] 330 [place] [address] [phone] 09/16/2024 2:00 PM EDT Office Visit [facility] 725 [facility], [address] [place] [address] Oziel Carrington MD [address] [place] [address] [place] [address] 10/07/2024 2:30 PM EDT Office Visit 2nd [facility] [address]240 [facility] Nutrition [address] floor room 240 [place] [address] Felipe Bishop, CYNDY 330 [place] [address] 10/22/2024 11:00 AM EDT Appointment [facility] DXA 330 [place] [address] [phone] John West MD [address] [place] [address] [place] [address] 11/03/2024 3:00 PM EDT Office Visit [facility] 725 [facility], [address] [place] [address] John West MD [address] [place] [address] [place] [address] documented as of this encounter Visit Diagnoses [...] documented as of this encounter Care Teams J2Ee Engineer Relationship Specialty Start Date End Date Oziel Carrington MD [address] [address] PCP - General Internal Medicine 10/19/22 documented as of this encounter
--- OUTSIDE RECORDS SUMMARY | 2024-06-26 20:13 | XMS_ITS | Encounter Summary ---
Author Organization [facility] Address 330 [facility] [place] [address] Care Team Providers Care Licensing Worker Name Role Phone Oziel Carrington MD Primary Care Provider +1- [phone] Encounter Details Date Type Department Care Team (Late st Contact Info) Description 05/15/2024 Scan Document - View in Chart [facility] 330 [place] [address] [phone] Abhijit Grant, MARCIN Social History Tobacco Use Types Packs/Day Years Used Date Smoking Tobacco: Never Passive Smoke Exposure: Never Smokeless Tobacco: Never Alcohol Use Standard Drinks/Week Comments Never 0 (1 standard drink = 0.6 oz pur e alcohol) [facility] Utilities Answer Date Recorded In the [...] 1 03/06/2024 PHQ-9 Total Score 5 03/06/2024 [place] Scale Score: Not on file Sex and [...] st Contact Info) Description 06/16/2024 Procedure Pass [facility] MRI 330 [place] [address] [phone] 07/07/2024 1:30 PM EDT Appointment [facility] MRI 330 [place] [address] [phone] 09/16/2024 2:00 PM EDT Office Visit [facility] 725 [facility], [address] [place] [address] Oziel Carrington MD 5 [facility] [address] [place] [address] 10/07/2024 2:30 PM EDT Office Visit 2nd [facility] [address]240 [facility] Nutrition 330 [facility] 2nd floor room 240 [place] [address] Felipe Bishop, CYNDY 330 [place] [address] 10/22/2024 11:00 AM EDT Appointment [facility] 330 [place] [address] [phone] John West MD [address] [place] [address] [place] [address] 11/03/2024 3:00 PM EDT Office Visit [facility] 725 [facility], [address] [place] [address] John West MD [address] [place] [address] [place] [address] documented as of this encounter Visit Diagnoses Not on filedocumented in this encounter Additional Health Concerns Infection Onset Date Last Indicated Resolved Time Highly Infectious Respiratory Virus 06/04/202406/0406/16/2024 11:33 AM EST documented as of this encounter Care Teams Licensing Worker Relationship Specialty Start Date End Date Oziel Carrington MD [address] [place] [address] [place] [address] PCP - General Internal Medicine 10/19/22 documented as of this encounter
--- OUTSIDE RECORDS SUMMARY | 2024-06-26 20:13 | XMS_ITS | Encounter Summary ---
Author Organization [facility] Address [address] [place] [address] Care Team Providers Care Newspaper Writer Name Role Phone Oziel Carrington MD Primary Care Provider +1- [phone] Encounter Details Date Type Department Care Team (Late st Contact Info) Description 05/29/2023 Billing Encounter [facility] 1 330 [place] [address] Oziel Carrington MD 5 [facility] [address] [place] [address] [phone] Social History Tobacco Use Types Packs/Day Years Used Date Smoking Tobacco: Never Smokeless Tobacco: Never Alcohol Use Standard Drinks/Week Comments Never 0 (1 standard drink = 0.6 oz pur e alcohol) Depression Answer Date Recorded Feeling Down, Depressed, or Hopeless 1 10/19/2022 PHQ-9 Total Score 2 10/19/2022 [place] Scale Score: Not on file Sex and [...] Description 06/16/2024 Procedure Pass [facility] 330 [place] [address] [phone] 07/07/2024 1:30 PM EDT Appointment [facility] 330 [place] [address] [phone] 09/16/2024 2:00 PM EDT Office Visit [facility] 5 [facility], [address] [address] Oziel Carrington MD [address] [place] [address] 10/07/2024 2:30 PM EDT Office Visit 2nd [facility] [address]240 [facility] Nutrition 330 [facility] 2nd floor room 240 [place] [address] Felipe Bishop, CYNDY 330 [place] [address] 10/22/2024 11:00 AM EDT Appointment [facility] 330 [place] [address] [phone] John West MD [address] [place] [address] [place] [address] 11/03/2024 3:00 PM EDT Office Visit [facility] 5 [facility], [address] [place] [address] John West MD [address] [place] [address] documented as of this encounter Visit Diagnoses [...] documented as of this encounter Care Teams Newspaper Writer Relationship Specialty Start Date End Date Oziel Carrington MD [address] [place] [address] PCP - General Internal Medicine 10/19/22 documented as of this encounter
--- OUTSIDE RECORDS SUMMARY | 2024-06-26 20:13 | XMS_ITS | Encounter Summary ---
Author Organization [facility] Address [address] [facility] [place] [address] Care Team Providers Care Building Custodial Supervisor Name Role Phone Oziel Carrington MD Primary Care Provider +1- [phone] Encounter Details Date Type Department Care Team (Late st Contact Info) Description 05/24/2023 Scan Document - View in Chart [facility] Department 330 [place] [phone] Provider, MD Boo [address] [place], [place] [address] Social History Tobacco Use Types Packs/Day Years Used Date Smoking Tobacco: Never Smokeless Tobacco: Never Alcohol Use Standard Drinks/Week Comments Never 0 (1 standard drink = 0.6 oz pur e alcohol) Depression Answer Date Recorded Feeling Down, Depressed, or Hopeless 1 10/19/2022 PHQ-9 Total Score 2 10/19/2022 [place] Scale Score: Not on file Sex and [...] st Contact Info) Description 06/16/2024 Procedure Pass [facility] 330 [place] [address] [phone] 07/07/2024 1:30 PM EDT Appointment [address] [address] [phone] 09/16/2024 2:00 PM EDT Office Visit [facility] 5 [facility], [address] [place] [address] Oziel Carrington MD [address] [place] [address] [place] [address] 10/07/2024 2:30 PM EDT Office Visit [address] [facility] [address]240 [facility] 330 [facility] 2nd floor room [address] [place] [address] Felipe Bishop, RD 330 [place] [address] 10/22/2024 11:00 AM EDT Appointment [facility] 330 [place] [address] [phone] John West MD [address] [place] [address] 11/03/2024 3:00 PM EDT Office [facility] [address] [place] [address], [address] [place] [address] John West MD [address] [place] [address] documented as of this encounter Visit Diagnoses [...] documented as of this encounter Care Teams Building Custodial Supervisor Relationship Specialty Start Date End Date Oziel Carrington MD [address] [place] [address] PCP - General Internal Medicine 10/19/22 documented as of this encounter
--- OUTSIDE RECORDS SUMMARY | 2024-06-26 20:13 | XMS_ITS | Encounter Summary ---
Author Organization [facility] Address [address] [employer] [place] [address] Care Team Providers Care Wood Heel Flap Rubber Name Role Phone Oziel Carrington MD Primary Care Provider +1- [phone] Encounter Details Date Type Department Care Team ([facility] st Contact Info) Description 05/12/[address] [place] [address] Oziel Carrington MD 5 [facility] [address] [place] [address] Social History Tobacco Use Types Packs/Day Years Used Date Smoking Tobacco: Never Passive Smoke Exposure: Never Smokeless Tobacco: Never Alcohol Use Standard Drinks/Week Comments Never 0 (1 standard drink = 0.6 oz pur e alcohol) [facility] Utilities Answer Date Recorded In the past 12 months has e [employer], gas, oil, or water [employer] threatened to shut off services in your [...] 1 03/06/2024 PHQ-9 Total Score 5 03/06/2024 [place] Scale Score: Not on file Sex and [...] st Contact Info) Description 06/16/2024 Procedure Pass [facility] 330 [place] [address] [phone] 07/07/2024 1:30 PM EDT Appointment [facility] 330 [place] [address] [phone] 09/16/2024 2:00 PM EDT Office Visit [facility] 725 [facility], [address] [place] [address] Oziel Carrington MD [address] [place] [address] [place] [address] 10/07/2024 2:30 PM EDT Office Visit 2nd Floor [facility] [address]240 [facility] Nutrition 330 [facility] 2nd floor room 240 [place] [address] Felipe Bishop, CYNDY 330 [place] [address] 10/22/2024 11:00 AM EDT Appointment [facility] 330 [place] [address] [phone] John West MD [address] [place] [address] [place] [address] 11/03/2024 3:00 PM EDT Office Visit [facility] 725 [facility], [address] [place] [address] John West MD [address] [place] [address] [place] [address] documented as of this encounter Visit Diagnoses Not on filedocumented in this encounter Additional Health Concerns Infection Onset Date Last Indicated Resolved Time Highly Infectious Respiratory Virus 06/04/202406/0406/16/2024 11:33 AM EST documented as of this encounter Care Teams Wood Heel Flap Rubber Relationship Specialty Start Date End Date Oziel Carrington MD [address] [place] [address] [place] [address] PCP - General Internal Medicine 10/19/22 documented as of this encounter
--- OUTSIDE RECORDS SUMMARY | 2024-06-26 20:13 | XMS_ITS | Encounter Summary ---
Author Organization [facility] Address [address] [facility] [place] [address] Care Team Providers Care Pi/Senior Research Associate Name Role Phone Oziel Carrington MD Primary Care Provider +1- [phone] Encounter Details Date Type Department Care Team (Late st Contact Info) Description 02/20/2024 Scan Document - View in Chart [facility] 330 [place], [place] [phone] MadisonAbimael Melo Social History Tobacco Use Types Packs/Day Years Used Date Smoking Tobacco: Never Smokeless Tobacco: Never Alcohol Use Standard Drinks/Week Comments Never 0 (1 standard drink = 0.6 oz pur e alcohol) [facility] Utilities Answer Date Recorded In the past 12 months has e electric, gas, oil, or water company threatened to shut off services in your home? No 12/14/2023 Humiliation, Afraid, Rape, and Kick questionnair e Answer Date Recorded Within the last year, have y ou been afraid of your partner or ex-partner? No 12/14/2023 Emotionally Abused Not on file 12/14/2023 Physically Abused Not on file 12/14/2023 Sexually Abused Not on file 12/14/2023 Overall Financial Resource Strain (CARDIA) Answe r Date Recorded How hard is it for you to pa y for the very basics like food, housing, medical care, and heating? Not hard at all 12/14/2023 Hunger Vital Sign Answer Date Recorded Within the past 12 months, y ou worried that your food would run out before you got the money to buy more. Never true 12/14/19 24 Ran Out of Food in the Last Year Not on file 12/14/2023 PRAPARE - Transportation Answer Date Re corded In the past 12 months, has l ack of transportation kept you from medical appointments or from getting medications? No 11/15 In the past 12 months, has l ack of transportation kept you from meetings, work, or from getting things needed for daily living? No 12/14/2023 Housing Stability Vital Sign Answer Chandana e Recorded In the last 12 months, was t here a time when you were not able to pay the mortgage or rent on time? No 12/14/2023 Number of Times Moved in the Last Year Not on fi le 12/14/2023 Homeless in the Last Year Not on file 2023 Depression Answer Date Recorded Feeling Down, Depressed, or Hopeless 1 10/19/2022 PHQ-9 Total Score 2 10/19/2022 [place] Scale Score: Not on file Sex and [...] st Contact Info) Description 06/16/2024 Procedure Pass [facility] 330 [place] [address] [phone] 07/07/2024 1:30 PM EDT Appointment [facility] 330 [place] [address] [phone] 09/16/2024 2:00 PM EDT Office Visit [facility] [address] [place] [address] [place] [address] Oziel Carrington MD 5 [facility] [address] [place] [address] 10/07/2024 2:30 PM EDT Office Visit 2nd Floor [facility] [facility] Nutrition 330 [facility] 2nd floor room 240 [place] [address] Felipe Bishop, CYNDY 330 [place] [address] 10/22/2024 11:00 AM EDT Appointment [facility] 330 [place] [address] [phone] John West MD [address] [place] [address] [place] [address] 11/03/2024 3:00 PM EDT Office Visit [facility] 725 [facility], [address] [place] [address] John West MD [address] [place] [address] [place] [address] documented as of this encounter Visit Diagnoses Not on filedocumented in this encounter Additional Health Concerns Infection Onset Date Last Indicated Resolved Time Highly Infectious Respiratory Virus 06/04/202406/0406/16/2024 11:33 AM EST documented as of this encounter Care Teams Pi/Senior Research Associate Relationship Specialty Start Date End Date Oziel Carrington MD [address] [place] [address] [place] [address] PCP - General Internal Medicine 10/19/22 documented as of this encounter
--- OUTSIDE RECORDS SUMMARY | 2024-06-26 20:13 | XMS_ITS | Encounter Summary ---
Author Organization [facility] Address 330 [facility] [place] [address] Care Team Providers Care Web Search Evaluator Name Role Phone Oziel Carrington MD Primary Care Provider +1- [phone] Encounter Details Date Type Department Care Team (Late st Contact Info) Description 07/22/2023 Procedure Pass [facility] 330 [place] [phone] Social History Tobacco Use Types Packs/Day Years Used Date Smoking Tobacco: Never Smokeless Tobacco: Never Alcohol Use Standard Drinks/Week Comments Never 0 (1 standard drink = 0.6 oz pur e alcohol) Depression Answer Date Recorded Feeling Down, Depressed, or Hopeless 1 10/19/2022 PHQ-9 Total Score 2 10/19/2022 [place] Scale Score: Not on file Sex and [...] Contact Info) Description 06/16/2024 Procedure Pass [facility] 330 [place] [address] [phone] 07/07/2024 1:30 PM EDT Appointment [facility] 330 [place] [address] [phone] 09/16/2024 2:00 PM EDT Office Visit [facility] 725 [facility], [address] [place] [address] Oziel Carrington MD [address] [place] [address] [place] [address] 10/07/2024 2:30 PM EDT Office Visit 2nd Floor [facility]240 [facility] 330 [facility] 2nd floor room 240 [place] [address] Felipe Bishop, CYNDY 330 [place] [address] 10/22/2024 11:00 AM EDT Appointment [facility] 330 [place] [address] [phone] John Wset MD [address] [place] [address] 11/03/2024 3:00 PM EDT Office Visit [facility] 5 [facility], [address] [place] [address] John West MD [address] [place] [address] documented as of this encounter Visit Diagnoses [...] documented as of this encounter Care Teams Web Search Evaluator Relationship Specialty Start Date End Date Oziel Carrington MD 5 [place] [phone] PCP - General Internal Medicine 10/19/22 documented as of this encounter
--- OUTSIDE RECORDS SUMMARY | 2024-06-26 20:13 | XMS_ITS | Encounter Summary ---
Author Organization [facility] Address 330 [facility] [place] [address] Care Team Providers Care Roller Print Tender Name Role Phone Oziel Carrington MD Primary Care Provider +1- [phone] Encounter Details Date Type Department Care Team (Late st Contact Info) Description 05/31/2022 Billing Encounter [facility] 300 [facility] [place] [address] Shelley Mederos, JUNIOR [address] [place] [address] Social History Tobacco Use Types Packs/Day Years [...] st Contact Info) Description 06/16/2024 Procedure Pass [facility] 330 [place] [address] [phone] 07/07/2024 1:30 PM EDT Appointment [facility] 330 [place] [address] [phone] 09/16/2024 2:00 PM EDT Office Visit [facility] 725 [facility], [address] [place] [address] Oziel Carrington MD [address] [place] [address] [place] [address] 10/07/2024 2:30 PM EDT Office Visit 2nd [facility] [address] [facility] Nutrition 330 [facility] 2nd floor room 240 [place] [address] Felipe Bishop, CYNDY 330 [place] [address] 10/22/2024 11:00 AM EDT Appointment [facility] 330 [place] [address] [phone] John West MD [address] [place] [address] [place] [address] 11/03/2024 3:00 PM EDT Office Visit [facility] [address] [place] [address], [address] [place] [address] John West MD [address] [place] [address] documented as of this encounter Visit Diagnoses [...] documented as of this encounter Care Teams Roller Print Tender Relationship Specialty Start Date End Date Oziel Carrington MD 5 [place] [phone] PCP - General Internal Medicine 10/19/22 documented as of this encounter
--- OUTSIDE RECORDS SUMMARY | 2024-06-26 20:13 | XMS_ITS | Encounter Summary ---
Author Organization [facility] Address 330 [facility] [place] [address] Care Team Providers Care Mining Helper Name Role Phone Oziel Carrington MD Primary Care Provider +1- [phone] Encounter Details Date Type Department Care Team (Late st Contact Info) Description 06/06/2022 Billing Encounter [facility] Care 300 [facility] [address] [place] [address] Jeniffer De Santiago MD 625 [facility] [address] [place] [address] Social History Tobacco Use Types Packs/Day [...] st Contact Info) Description 06/16/2024 Procedure Pass [facility] 330 [place] [address] [phone] 07/07/2024 1:30 PM EDT Appointment [facility] 330 [place] [address] [phone] 09/16/2024 2:00 PM EDT Office Visit [facility] 725 [facility], [address] [place] [address] Oziel Carrington MD [address] [place] [address] [place] [address] 10/07/2024 2:30 PM EDT Office Visit 2nd [facility]240 [facility] Nutrition [address] floor room 240 [place] [address] Felipe Bishop, RD 330 [place] [address] 10/22/2024 11:00 AM EDT Appointment [facility] 330 [place] [address] [phone] John West MD [address] [place] [address] [place] [address] 11/03/2024 3:00 PM EDT Office Visit [facility] [address] [place] [address], [address] [place] [address] John West MD [address] [place] [address] documented as of this encounter Visit Diagnoses [...] documented as of this encounter Care Teams Mining Helper Relationship Specialty Start Date End Date Oziel Carrington MD [address] [place], [place] [phone] PCP - General Internal Medicine 10/19/22 documented as of this encounter
--- OUTSIDE RECORDS SUMMARY | 2024-06-26 20:13 | XMS_ITS | Encounter Summary ---
Author Organization [facility] Address 330 [facility] [place] [address] Care Team Providers Care Pathology Laboratory Technologist Name Role Phone Oziel Carrington MD Primary Care Provider [phone]- [phone] Encounter Details Date Type Department Care Team (Late st Contact Info) Description 04/30/2023 Billing Encounter [facility] 300 [facility] [address] [place] [address] Betty Emerson NP [address] [place] [address] Social History Tobacco Use Types Packs/Day Years Used Date Smoking Tobacco: Never Smokeless Tobacco: Never Alcohol Use Standard Drinks/Week Comments Never 0 (1 standard drink = 0.6 oz pur e alcohol) Depression Answer Date Recorded Feeling Down, Depressed, or Hopeless 1 10/19/2022 PHQ-9 Total Score 2 10/19/2022 [place] Scale Score: Not on file Sex and [...] st Contact Info) Description 06/16/2024 Procedure Pass [facility] 330 [place] [address] [phone] 07/07/2024 1:30 PM EDT Appointment [facility] 330 [place] [address] [phone] 09/16/2024 2:00 PM EDT Office Visit [facility] 5 [facility], [address] [place] [address] Oziel Carrington MD [address] [place] [address] [place] [address] 10/07/2024 2:30 PM EDT Office Visit 2nd [facility] [address]240 [facility] Nutrition 330 [facility] 2nd floor room 240 [place] [address] Felipe Bishop, CYNDY 330 [place] [address] 10/22/2024 11:00 AM EDT Appointment [facility] 330 [place] [address] [phone] John West MD [address] [place] [address] [place] [address] 11/03/2024 3:00 PM EDT Office Visit [facility] 5 [facility], [address] [place] [address] John West MD [address] [place] [address] documented as of this encounter Visit Diagnoses Not on filedocumented in this encounter Additional Health Concerns Infection Onset Date Last Indicated Resolved Time C. Diff (Rule Out) 05/06/2023 05/06/2023 9:49 AM EST Highly Infectious Respirator y Virus (Rule Out) 07/24/2023 07/24/2023 07/25/2023 7:07 AM E DT Influenza 07/24/2023 07/24/2023 07/31/2023 1:52 AM EDT Highly Infectious Respirator y Virus (Rule Out) 12/13/2023 12/14/2023 12/14/2023 12:49 AM EDT Highly Infectious Respiratory Virus 06/04/202406/0406/16/2024 11:33 AM EST documented as of this encounter Care Teams Pathology Laboratory Technologist Relationship Specialty Start Date End Date Oziel Carrington MD [address] [place] [address] PCP - General Internal Medicine 10/19/22 documented as of this encounter
--- OUTSIDE RECORDS SUMMARY | 2024-06-26 20:13 | XMS_ITS | Encounter Summary ---
Author Organization [facility] Address [address] [place] [address] Care Team Providers Care Bingo Caller Name Role Phone Genevieve Cheung MD Primary Care Provider [phone] Oziel Carrington MD Primary Care Provider [phone]- [phone] Oziel Carrington MD Primary Care Provider +1- [phone] Oziel Carrington MD Primary Care Provider [phone]- [phone] Encounter Details Date Type Department Care Team (Late st Contact Info) Description 02/04/2022 Lab [facility] Orders Braxton Vicente MD 330 [place] [address] Social History Tobacco Use Types Packs/Day Years Used Date Smoking Tobacco: Never Assessed Sex and Gender Information Value Date Recorded Sex Assigned at Male 10/24/2023 1:28 PM EDT Legal Sex Male 5:17 PM EST Gender Identity Male 10/24/2023 1:28 PM EDT Sexual Orientation Not on file documented as of this encounter Plan of Treatment Upcoming Encounters Date Type Department Care Team (Late st Contact Info) Description 07/10/2024 4:30 PM EDT Office Visit [facility] 200 [facility] 3rd [place] [address] Jim Christensen MD 1 [facility] [address] [place] [address] In Person with Physician 03/05/2025 3:30 PM EST Office Visit [facility] Optometry [facility] 98 [facility], 5th [place] [address] Samantha Flores, OD [address] 5[address] [place] [address] In Person with Museum Guide documented as of this encounter Procedures Procedure Name Priority Date/Time Associated Diagnosis Comments CULTURE, AEROBIC, URINE STAT 02/04/2022 10:02 PM EDT documented in this encounter Results * Culture, Aerobic, Urine (02/04/2022 10:02 PM EDT) Culture No growth TRINI 02/06/2022 7:35 AM EDT [facility] Urine MID-STREAM URINE SPECIMEN / Unknown 02/04/2022 10:02 PM EDT 02/05/2022 4:57 AM EDT us Braxton Vicente MD MICROBIOLOGY - GENERAL ORDERAB LES Final Result [facility] [address] [place] [address], documented in this encounter Visit Diagnoses Not on filedocumented in this encounter Care Teams Bingo Caller Relationship Specialty Start Date End Date Genevieve Cheung MD 5 [facility], [address] [place] [address] PCP - General 02/19/20 01/22/23 Oziel Carrington MD 5 [facility], [address] [place] [address] PCP - General Internal Medicine 05/21/23 01/09/24 Oziel Carrington MD 5 [place] [address] PCP - General 01/23/23 05/20/23 Oziel Carrington MD 725 [place] [address] PCP - General Internal Medicine 01/10/24 documented as of this encounter
--- OUTSIDE RECORDS SUMMARY | 2024-06-26 20:13 | XMS_ITS | Encounter Summary ---
Author Organization [facility] Address 330 [place] [address] Care Team Providers Care Hostel Manager Name Role Phone Oziel Carrington MD Primary Care Provider +1- [phone] Encounter Details Date Type Department Care Team (Latest Contact Info) Description 05/27/2024 Travel Social History Tobacco Use Types Packs/Day Years Used Date Smoking Tobacco: Never Passive Smoke Exposure: Never Smokeless Tobacco: Never Alcohol Use Standard Drinks/Week Comments Never 0 (1 standard drink = 0.6 oz pur e alcohol) [facility] Utilities Answer Date Recorded In the past 12 months has e electric, gas, oil, or water [employer] threatened to shut off services in your [...] 1 03/06/2024 PHQ-9 Total Score 5 03/06/2024 [place] Scale Score: Not on file Sex and [...] st Contact Info) Description 06/16/2024 Procedure Pass [facility] MRI 330 [place] [address] [phone] 07/07/2024 1:30 PM EDT Appointment [facility] 330 [place] [address] [phone] 09/16/2024 2:00 PM EDT Office Visit [facility] 725 [facility], [address] [place] [address] Oziel Carrington MD [address] [place] [address] [place] [address] 10/07/2024 2:30 PM EDT Office Visit 2nd Floor [facility] [facility] Nutrition 330 [facility] 2nd floor room 240 [place] [address] Felipe Bishop, CYNDY 330 [place] [address] 10/22/2024 11:00 AM EDT Appointment [facility] 330 [place] [address] [phone] John West MD [address] [place] [address] [place] [address] 11/03/2024 3:00 PM EDT Office Visit [facility] [address] [place] [address], [address] [place] [address] John West MD [address] [place] [address] [place] [address] documented as of this encounter Visit Diagnoses Not on filedocumented in this encounter Care Teams Hostel Manager Relationship Specialty Start Date End Date Oziel Carrington MD [address] [place] [address] [place] [address] PCP - General Internal Medicine 10/19/22 documented as of this encounter
--- OUTSIDE RECORDS SUMMARY | 2024-06-26 20:13 | XMS_ITS | Encounter Summary ---
Author Organization [facility] Address 330 [facility] [place] [address] Care Team Providers Care Freight Air Brake Fitter Name Role Phone Oziel Carrington MD Primary Care Provider +1- [phone] Encounter Details Date Type Department Care Team (Late st Contact Info) Description 05/22/2023 Billing Encounter [facility] Geriatric Care 300 [facility]., [address] [place] [address] Oziel Carrington MD 725 [facility] [address] [place], [place] [phone] Social History Tobacco Use Types Packs/Day Years Used Date Smoking Tobacco: Never Smokeless Tobacco: Never Alcohol Use Standard Drinks/Week Comments Never 0 (1 standard drink = 0.6 oz pur e alcohol) Depression Answer Date Recorded Feeling Down, Depressed, or Hopeless 1 10/19/2022 PHQ-9 Total Score 2 10/19/2022 [place] Scale Score: Not on file Sex and [...] st Contact Info) Description 06/16/2024 Procedure Pass [facility] 330 [place] [address] [phone] 07/07/2024 1:30 PM EDT Appointment [facility] 330 [place] [address] [phone] 09/16/2024 2:00 PM EDT Office Visit [facility] [address] [place] [address], [address] [place] [address] Oziel Carrington MD [address] [place] [address] [place] [address] 10/07/2024 2:30 PM EDT Office Visit 2nd Floor [facility] [address]240 [facility] Nutrition 330 [facility] 2nd floor room 240 [place] [address] Felipe Bishop, CYNDY 330 [place] [address] 10/22/2024 11:00 AM EDT Appointment [facility] 330 [place] [address] [phone] John West MD [address] [place] [address] [place] [address] 11/03/2024 3:00 PM EDT Office Visit [facility] 5 [facility], [address] [place] [address] John West MD [address] [place] [address] [place] [address] documented as of this encounter Visit Diagnoses [...] documented as of this encounter Care Teams Freight Air Brake Fitter Relationship Specialty Start Date End Date Oziel Carrington MD [address] [place] [address] PCP - General Internal Medicine 10/19/22 documented as of this encounter
--- OUTSIDE RECORDS SUMMARY | 2024-06-26 20:13 | XMS_ITS | Encounter Summary ---
Author Organization [facility] Address 330 [facility] [place] [address] Care Team Providers Care Construction Ironworker Name Role Phone Oziel Carrington MD Primary Care Provider +1- [phone] Encounter Details Date Type Department Care Team (Late st Contact Info) Description 06/07/2022 Billing Encounter [facility] Ger[facility] Care 300 [facility]., [address] [place] [address] Shelley Mederos, JUNIOR [address] [place] [address] Social History Tobacco Use Types Packs/Day Years [...] st Contact Info) Description 06/16/2024 Procedure Pass [facility] 330 [place] [address] [phone] 07/07/2024 1:30 PM EDT Appointment [facility] 330 [place] [address] [phone] 09/16/2024 2:00 PM EDT Office Visit [facility] 725 [facility], [address] [place] [address] Oziel Carrington MD [address] [place] [address] [place] [address] 10/07/2024 2:30 PM EDT Office Visit 2nd [facility] [address]240 [facility] Nutrition 330 [facility] 2nd floor room 240 [place] [address] Felipe Bishop, CYNDY 330 [place] [address] 10/22/2024 11:00 AM EDT Appointment [facility] 330 [place] [address] [phone] John West MD [address] [place] [address] [place] [address] 11/03/2024 3:00 PM EDT Office Visit [facility] [address] [place] [address], [address] [place] [address] John West MD [address] [place] [address] documented as of this encounter Visit Diagnoses [...] documented as of this encounter Care Teams Construction Ironworker Relationship Specialty Start Date End Date Oziel Carrington MD [address] [place] [phone] PCP - General Internal Medicine 10/19/22 documented as of this encounter
--- OUTSIDE RECORDS SUMMARY | 2024-06-26 20:13 | XMS_ITS | Encounter Summary ---
Author Organization [facility] Address [address] [facility] [place] [address] Care Team Providers Care Gang Leader Name Role Phone Oziel Carrington MD Primary Care Provider +1- [phone] Encounter Details Date Type Department Care Team (Late st Contact Info) Description 06/23/2024 Telephone [facility] [address] [facility], [address] [place] [address] [phone] Oziel Carrington MD [address] [facility] [address] [place] [phone] Social History Tobacco Use Types Packs/Day Years Used Date Smoking Tobacco: Never Passive Smoke Exposure: Never Smokeless Tobacco: Never Alcohol Use Standard Drinks/Week Comments Never 0 (1 standard drink = 0.6 oz pur e alcohol) [facility] Utilities Answer Date Recorded In the past 12 months has e [employer], gas, oil, or water [employer] threatened to shut off services in your [...] 1 03/06/2024 PHQ-9 Total Score 5 03/06/2024 Rison Scale Score: Not on file Sex and [...] encounter Miscellaneous Notes * Telephone Encounter - Mele Hansen MA - 06/23/2024 8:08 AM EDT Pt called. Pt is confused about the instructions relating to Parnate, 10mg. Pt was discharged from hospital on 06/11/24. Pt also had a recent visit with DIETITIAN ASSISTANT MacLeod on 06/16/24 Pt wants to know if he should still take parnate 3 tablets in the morning and 3 tablets at night. However, EPIC states 3 tablets 3 times a day. Can you clarify the instructions so I can relay them to the pt? Thanks. Got called from the pt stating walking in his sleep ; left a message: if not urgent or emergency that something need to be done today, recommend calling back tomorrow morning. documented in this encounter Plan of Treatment Upcoming Encounters Date Type Department Care Team (Late st Contact Info) Description 06/16/2024 Procedure Pass [address] [phone] 07/07/2024 1:30 PM EDT Appointment [address] [phone] [phone] 09/16/2024 2:00 PM EDT Office Visit [facility] [address] [facility], [address] [place] [address] Oziel Carrington MD [address] [place] [phone] 10/07/2024 2:30 PM EDT Office Visit [address] [place] [address] [address] [facility] 330 [facility] 2nd floor room 240 [place] [address] Felipe Bishop, CYNDY 330 [place] [address] 10/22/2024 11:00 AM EDT Appointment [address] [phone] [phone] John Wset MD [address] [place] [address] 11/03/2024 3:00 PM EDT Office Visit [facility] [address] [facility], [address] [place] [address] John West MD 5 [facility] [address] [place] [address] documented as of this encounter Visit Diagnoses Not on filedocumented in this encounter Care Teams Gang Leader Relationship Specialty Start Date End Date Oziel Carrington MD [address] [facility] Suite [facility] [place] [address] PCP - General Internal Medicine 10/19/22 documented as of this encounter
--- OUTSIDE RECORDS SUMMARY | 2024-06-26 20:13 | XMS_ITS | Encounter Summary ---
Author Organization [facility] Address [address] [facility] [place] [address] Care Team Providers Care Pyrometallurgical Engineer Name Role Phone Oziel Carrington MD Primary Care Provider +1- [phone] Encounter Details Date Type Department Care Team (Late st Contact Info) Description 07/03/2023 Procedure Pass [facility] [address] [place] [phone] Social History Tobacco Use Types Packs/Day Years Used Date Smoking Tobacco: Never Smokeless Tobacco: Never Alcohol Use Standard Drinks/Week Comments Never 0 (1 standard drink = 0.6 oz pur e alcohol) Depression Answer Date Recorded Feeling Down, Depressed, or Hopeless 1 10/19/2022 PHQ-9 Total Score 2 10/19/2022 [place] Scale Score: Not on file Sex and [...] st Contact Info) Description 06/16/2024 Procedure Pass [facility] [address] [place] [address] [phone] 07/07/2024 1:30 PM EDT Appointment [facility] [address] [place] [address] [phone] 09/16/2024 2:00 PM EDT Office Visit [facility] [address] [facility], [address] [place] [phone] Oziel Carrington MD [address] [place] [address] [place] [address] 10/07/2024 2:30 PM EDT Office Visit 2nd [facility] [address] [facility] [address] floor room 240 [place] [address] Felipe Bishop, CYNDY 330 [place] [address] 10/22/2024 11:00 AM EDT Appointment [facility] 330 [place] [address] [phone] John West MD [address] [place] [phone] 11/03/2024 3:00 PM EDT Office Visit [facility] [address] [place] [address], [address] [place] [address] John West MD [address] [place] [phone] documented as of this encounter Visit Diagnoses [...] documented as of this encounter Care Teams Pyrometallurgical Engineer Relationship Specialty Start Date End Date Oziel Carrington MD [address] [address] PCP - General Internal Medicine 10/19/22 documented as of this encounter
--- OUTSIDE RECORDS SUMMARY | 2024-06-26 20:13 | XMS_ITS | Encounter Summary ---
Author Organization [facility] Address [address] [facility] [place] [address] Care Team Providers Care Tattoo Designer Name Role Phone Oziel Carrington MD Primary Care Provider +1- [phone] Encounter Details Date Type Department Care Team (Late st Contact Info) Description 02/12/[address] [facility] Lab 330 [place] [phone] Alexsandra Goodman PA [address] [place] [address] Social History Tobacco Use Types Packs/Day Years Used Date Smoking Tobacco: Never Smokeless Tobacco: Never Alcohol Use Standard Drinks/Week Comments Never 0 (1 standard drink = 0.6 oz pur e alcohol) [facility] Utilities Answer Date Recorded In the past 12 months has [employer], gas, oil, or water [employer] threatened to shut off services in your [...] 1 10/19/2022 PHQ-9 Total Score 2 10/19/2022 [place] Scale Score: Not on file Sex and [...] st Contact Info) Description 06/16/2024 Procedure Pass [facility] [address] [place] [address] [phone] 07/07/2024 1:30 PM EDT Appointment [facility] [address] [place] [address] [phone] 09/16/2024 2:00 PM EDT Office Visit [facility] [address] [facility], [address] [place] [address] Oziel Carrington MD [address] [facility] [address] [place] [address] 10/07/2024 2:30 PM EDT Office Visit 2nd Floor [facility] [address] [facility] 330 [facility] 2nd floor room 240 [place] [address] Felipe Bishop, CYNDY 330 [place] [address] 10/22/2024 11:00 AM EDT Appointment [facility] 330 [place] [address] [phone] John West MD 5 [facility] [address] [place] [address] 11/03/2024 3:00 PM EDT Office Visit [facility] [address] [facility], [address] [place] [address] John West MD [address] [place] [address] [place] [address] documented as of this encounter Visit Diagnoses Not on filedocumented in this encounter Additional Health Concerns Infection Onset Date Last Indicated Resolved Time Highly Infectious Respiratory Virus 06/04/202406/0406/16/2024 11:33 AM EST documented as of this encounter Care Teams Tattoo Designer Relationship Specialty Start Date End Date Oziel Carrington MD 5 [facility] [address] [address] PCP - General Internal Medicine 10/19/22 documented as of this encounter
--- OUTSIDE RECORDS SUMMARY | 2024-06-26 20:13 | XMS_ITS | Encounter Summary ---
Author Organization [facility] Address [address] [facility] [place] [address] Care Team Providers Care Senior Tax Specialist Name Role Phone Oziel Carrington MD Primary Care Provider +1- [phone] Encounter Details Date Type Department Care Team (Late st Contact Info) Description 04/19/2024 Procedure Pass [facility] [address] [place] [address] [phone] Social History Tobacco Use Types Packs/Day Years Used Date Smoking Tobacco: Never Smokeless Tobacco: Never Alcohol Use Standard Drinks/Week Comments Never 0 (1 standard drink = 0.6 oz pur e alcohol) [facility] Utilities Answer Date Recorded In the past [...] 1 03/06/2024 PHQ-9 Total Score 5 03/06/2024 Meacham Scale Score: Not on file Sex and [...] st Contact Info) Description 06/16/2024 Procedure Pass [facility] [address] [place] [address] [phone] 07/07/2024 1:30 PM EDT Appointment [facility] [address] [place] [address] [phone] 09/16/2024 2:00 PM EDT Office Visit [facility] [address] [facility], [address] [place] [address] Oziel Carrington MD 5 [facility] [address] [place] [address] 10/07/2024 2:30 PM EDT Office Visit 2nd Floor [facility] [address] [facility] 330 [facility] 2nd floor room 240 [place] [address] Felipe Bishop, CYNDY [address] [place] [address] 10/22/2024 11:00 AM EDT Appointment [facility] 330 [place] [address] [phone] John West MD [address] [place] [address] [place], [place] [phone] 11/03/2024 3:00 PM EDT Office Visit [facility] [address] [facility], [address] [place] [address] John West MD [address] [place] [address] [place] [address] documented as of this encounter Visit Diagnoses Not on filedocumented in this encounter Additional Health Concerns Infection Onset Date Last Indicated Resolved Time Highly Infectious Respiratory Virus 06/04/202406/0406/16/2024 11:33 AM EST documented as of this encounter Care Teams Senior Tax Specialist Relationship Specialty Start Date End Date Oziel Carrington MD [address] [place] [address] [place] [address] PCP - General Internal Medicine 10/19/22 documented as of this encounter
--- OUTSIDE RECORDS SUMMARY | 2024-06-26 20:13 | XMS_ITS | Encounter Summary ---
Author Organization [facility] Address [address] [facility] [place] [address] Care Team Providers Care Sales Closer Name Role Phone Oziel Carrington MD Primary Care Provider +1- [phone] Encounter Details Date Type Department Care Team (Late st Contact Info) Description 06/24/2024 2:30 PM EDT Office Visit 2nd Floor [facility] [address] [facility] Nutrition 330 [facility] 2nd floor room 240 [place] [address] Felipe Bishop, CYNDY [address] [place], [place] [phone] Stage 3b chronic kidney disease (CMS/HCC) [N18.32] (Primary Dx); Unintentional weight loss [R63.4] Social History Tobacco Use Types Packs/Day Years Used Date Smoking Tobacco: Never Passive Smoke Exposure: Never Smokeless Tobacco: Never Alcohol Use Standard Drinks/Week Comments Never 0 (1 standard drink = 0.6 oz pur e alcohol) [facility] Utilities Answer Date Recorded In [...] 1 03/06/2024 PHQ-9 Total Score 5 03/06/2024 Webster Scale Score: Not on file Sex and [...] as of this encounter Progress Notes * Felipe Bishop, CYNDY - 06/24/2024 2:30 PM EDT Start time 2:30pm End time 3pm Visit 4 Reason for Medical Nutrition Therapy: Diabetes Type 2 and Renal, chronic insufficiency, GI issues Primary Language Spoken: Ghanaian Past Medical History: Past Medical History: Diagnosis Date Adult failure to thrive 12/14/2020 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 Calcium oxalate kidney stones 03/22/2022 Closed fracture of multiple ribs of right side with routine healing 06/17/2019 Closed fracture of occipital bone ([facility]/HCC) 02/02/2021 COVID-19 07/03/2022 Elevated lipase 07/18/2023 Gastrointestinal hemorrhage with melena 12/14/2023 Hematoma 07/08/2020 Hypercapnic respiratory failure ([facility]) 05/20/2022 Hypotension due to hypovolemia 05/29/2022 Hypothermia 05/29/2022 Inguinal hernia without obstruction or gangrene 01/14/2023 Intestinal infection due to Clostridium difficile 01/07/2007 Meningioma ([facility]) CT head 11/2023 Unchanged right parietal convexity meningioma measuring up to 1.3 cm. 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 Pneumonia of right middle lobe due to infectious organism 05/03/2023 Scapula fracture 03/30/2022 Toxic metabolic encephalopathy 03/09/2022 Medications: Current Outpatient Medications: acetaminophen (TYLENOL) 500 mg [...] a day., Disp: 270 tablet, Rfl: 0 Allergies: Allergies Allergen Reactions Tyramine Other (see comments) hypertension High blood pressure Gabapentin Side effects/sedation Tyramine Hcl hypertension Relevant Labs: 09/20/23 Hgb 10.4 low, Hct 33.2 low, Na 132 low, BUN 35, Cr 1.1, GFR 69; 08/14/23 Fe 50,Ferritin 88.50; 08/19/23 phos 3.6 10/24/23 HbA1c 5.5%, TC 146, TG 62, HDL 76, LDL 58, Na 135, K+ 5, BUN 38, Cr 1.2, GFR 62 12/20/23 Na 139, K+ 4.6, BUN 44, Cr 1.3, GFR 56, Hgb 10.9 low, Hct 35.3 low; 12/04/23 HbA1c 5.9% 02/20/24 HbA1c 5.8%, B-12 421; 02/17/24 phos 3.6, K+ 4.6, BUN 45, Cr 1.2, GFR>60, Hgb 11.1, Hct 34.3 06/16/24 Hgb 10.3, Hct 33, K+ 5.2, BUN 46, Cr 1.1 GFR 69 Anthropometrics: Height: 5'5 Weight: 127 lb (at VT 06/16/24) BMI: 21.13 kg/m^2 %IBW: 93% Weight history: Wt Readings from Last 10 Encounters: 06/16/24 127 lb (57.6 kg) 05/18/24 122 lb (55.3 kg) 04/28/24 117 lb 3.2 oz (53.2 kg) 03/20/24 123 lb (55.8 kg) 03/06/24 126 lb (57.2 kg) 02/18/24 115 lb (52.2 kg) 02/12/24 117 lb 3.2 oz (53.2 kg) 02/10/24 122 lb (55.3 kg) 12/24/23 122 lb 6.4 oz (55.5 kg) 12/24/23 120 lb (54.4 kg) Social hx: pt goals - to gain weight - difficult to gain even though eats well, and has a lot of nutrition related questions, has stomach issues Lives alone, 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 Diet History: shops at Breakfast: 11:[id number] w/blueberries and almond milk; low sugar cereal TJ Leopoldo's O's w/spoonsize shredded wheat w/almond milk and blueberries, also has plain [place] Islander yogurt non-fat; occ Chinese toast or scrambled eggs Lunch:4-5:30pm- brought lunch to appt - 1.5 - 2 sandwiches -almond butter or PB sandwich on whole wheat bread (sometimes white or britany bread or bagel), banana; cottage cheese sandwich with yogurt on it, banana S: before or after lunch gets hungry-fruit - apple or pear or half piece of bread sometimes w/humus Dinner: 7:30-8:30pm-protein, veg, starch, fruit - protein: sliced packaged turkey, frozen salmon burger or veggie burger, chicken breast; veg-frozen joanne, caul, peas, asparagus; starch-bread, rice-brown 2/3 c portion, [place] Islander yogurt Out/takeout: 1-2x/wk- baked salmon, steamed vegetables-brings home leftovers or omelet Snacks: nothing after dinner Nenita: water, alkaline water w/electrolytes, emile tea ETOH: denies Bed - 11p-12:30am, but feels better going to bed earlier, feels needs ~10 h sleep Exercise history: Uses walker, walks daily 30-60 minutes Nutrition Needs: 2045 kcals for weight gain (Sherman*1.5 + 300 kcals) Intake/Digestive Problems: Episodic pain, nausea usually after dinner - fluctuates between constipation and diarrhea, taking Miralax and is helping with regularity Patient Interview: Cody was here today for an initial nutrition counseling appointment for management of CKD, DM, and stomach issues/ulcer. 10/25/23 Pt with many questions today about electrolytes-Na+ - hx hyponatremia. Miralax working well to helppt with regularity. Discussed high fiber foods to include to help with regularity including fruit, caputo tomatoes, and high fiber cereal. Avoids sugary foods like dried fruit, chocolate and other sweets r/t hx DM. Met with a dietitian in the past and got counseling about diet for DM. Most recent HbA1c is WNL so pt can likely liberalize his diet to include more higher CHO foods since needing to increase intake to enable wt gain. Pt is eating lean proteins such as poultry and fish, eating balanced meals comprised of mostly whole grains, vegetables and lean protein. Eating fruit, healthful fatslike PB and almond butter. Pt eating meals quite late which makes it difficult to include snacks between meals. Generated ideas for healthful kcal-dense snacks pt could eat between meals; pt receptive to trying to make meals earlier. We will f/u mid-Dec. 12/27/23 Chart review: pt has gained some wt, ~12 lb in the time between visits (2 months). Labs show slightly worsening renal function but still quite high with GFR 56 down from 62. Pt reports just started having Ensure recently more often for snack but only had one 6-pack so this is not likely reason for wt gain. Might have crackers w/ the Ensure. Provided coupons for Ensure. Continues eating similar breakfast - oatmeal or dry cereal w/spoon of [place]er yogurt in it. Pt asking if ok to have full cup of oatmeal and this is fine. For lunch now is often having 2 sandwiches - almond butter or cottage cheese w/yogurt, was having less. Asking about white bread - recommended whole grain for health and bowel regularity - pt also likes bagels that are white. Taking daily Miralax and always has daily BM prior to bed sometimes incontinent of stool-texture varies between solid and sometimes muddy. Discussed role of fiber in BM texture. Pt is having mashed cauliflower or broccoli w/dinner. Went over foods high in fiber: sweet potato, spinach, caputo tomatoes, pears. Discussed diet for CKD - encouraged more vegetables, pt is eating lots of fruit. Hasn't had juices in awhile - discussed that it is better to eat fruit but considering unintentional wt loss, don't restrict too much. Pt tries to avoid juices with added sugar. Question about ice cream - how often? Recommended having 1-2x/wk considering the wt loss. Discussed deli turkey breast as being high in sodium. Discussed other options but pt not doing much cooking - advised 600 mg sodium per meal and ~2000 mg per day. F/u scheduled Mar 27 in 3 months. 03/27/24 Chart review: labs show GFR WNL, though BUN remains elevated, HbA1c 5.8%. Wt appears to be stable at 123 lb. Pt reports is happy at this weight but BMI is 20.47 at this wt so would benefit from a bitmore wt gain with goal of 125-130 lb. Pt reports has not been good about eating snacks regularly. For lunch having 1.5 or 2 sandwiches - almond butter or humus on WW bread along with some fruit - discussed always having 2 sandwiches to enable more wt gain. Pt met goal of having wheat bread vs whitebread- hasn't bought any white bread since last appt. Pt hasn't bought bagels until recently; discussed how often to buy bagels - recommended 1x/month. Discussed options for snacks - reminded pt of ideas discussed in the past - yogurt w/granola or nuts if worried about sugar in granola; hummus w/bread; nuts. Recommended limiting bread per day (pt asked) to just his lunch sandwiches r/t CHO content. Pt eating salmon burgers, veggie burgers w/dinner with vegetables - always has veggie at dinner. Advised at least two vegetables per day. Is eating 2-3 servings fruit/d. Pt has done some cooking - salmon, chicken - which is great! Pt is eating late so not wanting to do much cooking. Feels if meals could be earlier he would be more inclined to cook; is getting up by 9:30-10am so could eat breakfast earlier. Pt going to OA about 5x/wk - reports used to have a big problem with eating excessive sweets; discussed how often he would like to eat sweets such as small portion of ice cream - advised discussing with his sponsor, but we came up with 1x/wk. We will follow up in 3 months. 06/24/24 Chart review: labs show slightly elevated K+ at 5.2, BUN also elevated but GFR>60 and Cr WNL, low Hgb and Hct. Pt has gained some wt ~4 lb in the time between visits. Pt reports to start PT in a couple of weeks to help with pain and overall functioning in ADLs. Pt reports not doing so well with cooking-was hospitalized for a few weeks and enjoyed the food in the hospital - feels got spoiled bythis food - for breakfast had omelet with spinach, cheese, toast. At home having 2 kinds dry cerealw/almond milk, yogurt, banana or blueberries. Has made omelet w/vegetables for dinner at home; worked on goal of adding another vegetable to dinner. Pt brought lunch to eat after appt - today has 1.5humus sandwiches and banana for lunch - at home will put lettuce and tomato on it. Another lunch isoften almond butter sandwiches. Most days has one snack which recently has been Ensure -350 kcals. Discussed what pt could snack on other than the Ensure: almond butter w/crackers; humus w/crackers, [place] Islander yogurt w/cottage cheese. Continues with fairly late eating pattern which can make it difficultto eat enough. Having disrupted sleep which is challenging. Encouraged trying to eat earlier to enable more frequent meals and snacks - will aim to have B by 10am. Pt reduced intake of bagels, is opting for all WW breads - britany, bread. Pt asking about ice cream frequency and number fruits per day -advised 3 servings fruit per day; and again discussed (this is the 3rd time) how often to have ice cream 1x/wk 1/2 cup portion. Taking senna for bowel regulation. Discussed perhaps using Metamucil. We will f/u in 3 months Nutritional Diagnosis: Diagnosis 1: Clinical: Underweight secondary to ?inadequate intake as evidenced by BMI 18.9-vzuyyxtxu-ghu 21.13. Diagnosis 2: Clinical: Altered GI function secondary to diet, constipation as evidenced by stomach pain, nausea, now managed better with Miralax. Diagnosis 3: Clinical: Lab values altered secondary to hx DM, CKD as evidenced by BUN 46, Cr 1.1, GFR 62 --->56--->60-->69, HbA1c 5.5%--->5.8% with hx of being higher. Nutrition Plan: New goals: Eat breakfast by 10am 2 sandwiches for lunch Ensure - one per day, plus one other food snack per day- humus or almond butter with crackers, or cottage cheese w/[place] Islander yogurt 4. Could try Metamucil for constipation 5. Two servings vegetables per day; could have 3 servings of fruit per day Continue whole grains Monitor renal function, HbA1c, K+ Nutrition Education: Diet: Carb-controlled and Weight gain Education Provided: Balanced Meal Planning and High Calorie /High Protein Barriers: None Receptiveness: excellent Expected Compliance: excellent documented in this encounter Plan of Treatment Upcoming Encounters Date Type Department Care Team (Late st Contact Info) Description 06/16/2024 Procedure Pass [facility] MRI [address] [place] [address] [phone] 07/07/2024 1:30 PM EDT Appointment [facility] MRI [address] [place] [address] [phone] 09/16/2024 2:00 PM EDT Office Visit [facility] [address] [facility], [address] [place] [address] Oziel Carrington MD [address] [facility] [address] [place] [address] 10/07/2024 2:30 PM EDT Office Visit [address] [place] [address] [address] [facility] Nutrition 330 [facility] 2nd floor room 240 [place] [address] Felipe Bishop, RD [address] [place] [address] 10/22/2024 11:00 AM EDT Appointment [facility] DXA [address] [place] [address] [phone] John West MD [address] [place] [address] [place] [address] 11/03/2024 3:00 PM EDT Office Visit [facility] [address] [facility], [address] [place] [address] John West MD [address] [place] [address] [place] [address] documented as of this encounter Visit Diagnoses Diagnosis Stage 3b chronic kidney disease (CMS/HCC) [N18.32]- Primary Unintentional weight loss [R63.4] Loss of weight documented in this encounter Care Teams Sales Closer Relationship Specialty Start Date End Date Oziel Carrington MD [address] [facility] [address] [place] [address] PCP - General Internal Medicine 10/19/22 documented as of this encounter
--- OUTSIDE RECORDS SUMMARY | 2024-06-26 20:13 | XMS_ITS | Encounter Summary ---
Author Organization [facility] Address [address] [facility] [place] [address] Care Team Providers Care Multiple Pressure Riveter Operator Name Role Phone Oziel Carrington MD Primary Care Provider +1- [phone] Encounter Details Date Type Department Care Team (Latest Contact Info) Description 06/08/2024 Travel Social History Tobacco Use Types Packs/Day Years Used Date Smoking Tobacco: Never Passive Smoke Exposure: Never Smokeless Tobacco: Never Alcohol Use Standard Drinks/Week Comments Never 0 (1 standard drink = 0.6 oz pur e alcohol) [facility] Utilities Answer Date Recorded In the past 12 months has e electric, gas, oil, or water [email or web address] threatened to shut off services in your [...] 1 03/06/2024 PHQ-9 Total Score 5 03/06/2024 [place] Scale Score: Not on file Sex and [...] Info) Description 06/16/2024 Procedure Pass [facility] MRI [address] [place] [address] [phone] 07/07/2024 1:30 PM EDT Appointment [facility] [address] [place] [address] [phone] 09/16/2024 2:00 PM EDT Office Visit [facility] [address] [facility], [address] [place] [address] Oziel Carrington MD [address] [place] [address] [place] [address] 10/07/2024 2:30 PM EDT Office Visit 2nd Floor [facility] [address] [facility] Nutrition 330 [facility] 2nd floor room 240 [place] [address] Felipe Bishop, CYNDY [address] [place] [address] 10/22/2024 11:00 AM EDT Appointment [facility] 330 [place] [address] [phone] John West MD [address] [place] [address] [place] [address] 11/03/2024 3:00 PM EDT Office Visit [facility] [address] [place] [address], [address] [place] [address] John West MD [address] [place] [address] [place] [address] documented as of this encounter Visit Diagnoses Not on filedocumented in this encounter Additional Health Concerns Infection Onset Date Last Indicated Resolved Time Highly Infectious Respiratory Virus 06/04/202406/0406/16/2024 11:33 AM EST documented as of this encounter Care Teams Multiple Pressure Riveter Operator Relationship Specialty Start Date End Date Oziel Carrington MD [address] [place] [address] [place] [address] PCP - General Internal Medicine 10/19/22 documented as of this encounter
--- OUTSIDE RECORDS SUMMARY | 2024-06-26 20:13 | XMS_ITS | Encounter Summary ---
Author Organization [facility] Address [address] [facility] [place] [address] Care Team Providers Care Home Lighting Adviser Name Role Phone Oziel Carrington MD Primary Care Provider +1- [phone] Encounter Details Date Type Department Care Team (Late st Contact Info) Description 05/24/2023 Scan Document - View in Chart [facility] Department [address] [place] [phone] Provider, MD Boo [address] [place], [place] [address] Social History Tobacco Use Types Packs/Day Years Used Date Smoking Tobacco: Never Smokeless Tobacco: Never Alcohol Use Standard Drinks/Week Comments Never 0 (1 standard drink = 0.6 oz pur e alcohol) Depression Answer Date Recorded Feeling Down, Depressed, or Hopeless 1 10/19/2022 PHQ-9 Total Score 2 10/19/2022 Crabtree Scale Score: Not on file Sex and [...] 06/16/2024 Procedure Pass [facility] [address] [place] [address] [phone] 07/07/2024 1:30 PM EDT Appointment [address] [address] [phone] 09/16/2024 2:00 PM EDT Office Visit [facility] 5 [facility], [address] [place] [address] Oziel Carrington MD [address] [place] [address] [place] [address] 10/07/2024 2:30 PM EDT Office Visit 2nd [facility] [address]240 [facility] 330 [facility] 2nd floor room 240 [place] [address] Felipe Bishop, RD [address] [place] [address] 10/22/2024 11:00 AM EDT Appointment [facility] 330 [place] [address] [phone] John West MD [address] [place] [address] 11/03/2024 3:00 PM EDT Office Visit [facility] [address] [place] [address], [address] [place] [address] John West MD [address] [place] [address] documented as of this encounter Visit Diagnoses [...] documented as of this encounter Care Teams Home Lighting Adviser Relationship Specialty Start Date End Date Oziel Carrington MD [address] [place] [address] PCP - General Internal Medicine 10/19/22 documented as of this encounter
--- OUTSIDE RECORDS SUMMARY | 2024-06-26 20:13 | XMS_ITS | Encounter Summary ---
Author Organization [facility] Address [address] [facility] [address] Care Team Providers Care Wireless Consultant Name Role Phone Oziel Carrington MD Primary Care Provider +1- [phone] Encounter Details Date Type Department Care Team (Late st Contact Info) Description 05/22/2023 Procedure Pass [facility] MRI [address] [place] [address] [phone] Social History Tobacco Use Types Packs/Day Years Used Date Smoking Tobacco: Never Smokeless Tobacco: Never Alcohol Use Standard Drinks/Week Comments Never 0 (1 standard drink = 0.6 oz pur e alcohol) Depression Answer Date Recorded Feeling Down, Depressed, or Hopeless 1 10/19/2022 PHQ-9 Total Score 2 10/19/2022 [place] Scale Score: Not on file Sex and [...] 06/16/2024 Procedure Pass [facility] 330 [place] [address] [phone] 07/07/2024 1:30 PM EDT Appointment [facility] [address] [place] [address] [phone] 09/16/2024 2:00 PM EDT Office Visit [facility] 5 [facility], [address] [place] [address] Oziel Carrington MD [address] [place] [address] 10/07/2024 2:30 PM EDT Office Visit 2nd Floor [facility] [address]240 [facility] 330 [facility] 2nd floor room 240 [place] [address] Felipe Bishop, CYNDY [address] [place] [address] 10/22/2024 11:00 AM EDT Appointment [facility] DXA [address] [place] [address] [phone] John West MD [address] [place] [address] 11/03/2024 3:00 PM EDT Office Visit [facility] [address] [place] [address], [address] [place] [address] John West MD [address] [place] [address] documented as of this encounter Visit Diagnoses [...] documented as of this encounter Care Teams Wireless Consultant Relationship Specialty Start Date End Date Oziel Carrington MD [address] [place] [address] PCP - General Internal Medicine 10/19/22 documented as of this encounter
--- OUTSIDE RECORDS SUMMARY | 2024-06-26 20:13 | XMS_ITS | Encounter Summary ---
Author Organization [facility] Address [address] [facility] [place] [address] Care Team Providers Care Edge Sander Name Role Phone Oziel Carrington MD Primary Care Provider +1- [phone] Encounter Details Date Type Department Care Team (Late st Contact Info) Description 06/14/2022 Billing Encounter [facility] [address] [facility] [address] [place] [address] Shelley Mederos, JUNIOR [address] [place] [address] Social History Tobacco Use Types Packs/Day Years [...] st Contact Info) Description 06/16/2024 Procedure Pass [facility] 330 [place] [address] [phone] 07/07/2024 1:30 PM EDT Appointment [facility] [address] [place] [address] [phone] 09/16/2024 2:00 PM EDT Office Visit [facility] [address] [facility], [address] [place] [address] Oziel Carrington MD [address] [place] [address] [place] [address] 10/07/2024 2:30 PM EDT Office Visit [address] [facility] [address]240 [facility] Nutrition 330 [facility] 2nd floor room [address] [place] [address] Felipe Bishop, CYNDY [address] [place] [address] 10/22/2024 11:00 AM EDT Appointment [facility] DXA [address] [place] [address] [phone] John West MD [address] [place] [address] [place] [address] 11/03/2024 3:00 PM EDT Office Visit [facility] [address] [place] [address], [address] [place] [address] John West MD [address] [place] [address] documented as of this encounter Visit Diagnoses [...] documented as of this encounter Care Teams Edge Sander Relationship Specialty Start Date End Date Oziel Carrington MD [address] [place] [phone] PCP - General Internal Medicine 10/19/22 documented as of this encounter
--- OUTSIDE RECORDS SUMMARY | 2024-06-26 20:13 | XMS_ITS | Encounter Summary ---
Author Organization [facility] Address 330 [facility] [place] [address] Care Team Providers Care Percussion Teacher Name Role Phone Oziel Carrington MD Primary Care Provider +1- [phone] Encounter Details Date Type Department Care Team (Late st Contact Info) Description 05/30/2022 Billing Encounter [facility] 300 [facility] [place] [address] Jeniffer De Santiago MD [address] [facility] [address] [place] [address] Social History Tobacco Use Types [...] st Contact Info) Description 06/16/2024 Procedure Pass [facility] 330 [place] [address] [phone] 07/07/2024 1:30 PM EDT Appointment [facility] 330 [place] [address] [phone] 09/16/2024 2:00 PM EDT Office Visit [facility] 7[address] [facility], [address] [place] [address] Oziel Carrington MD [address] [place] [address] [place] [address] 10/07/2024 2:30 PM EDT Office Visit 2nd [facility] [address]240 [facility] Nutrition [address] floor room 240 [place] [address] Felipe Bishop, RD 330 [place] [address] 10/22/2024 11:00 AM EDT Appointment [facility] 330 [place] [address] [phone] John West MD [address] [place] [address] [place] [address] 11/03/2024 3:00 PM EDT Office Visit [facility] [address] [place] [address], [address] [place] [address] John West MD [address] [place] [address] documented as of this encounter Visit Diagnoses [...] documented as of this encounter Care Teams Percussion Teacher Relationship Specialty Start Date End Date Oziel Carrington MD [address] [place], [place] [phone] PCP - General Internal Medicine 10/19/22 documented as of this encounter
--- OUTSIDE RECORDS SUMMARY | 2024-06-26 20:13 | XMS_ITS | Encounter Summary ---
Author Organization [facility] Address 330 [facility] [place] [address] Care Team Providers Care Clocksmith Name Role Phone Oziel Carrington MD Primary Care Provider +1- [phone] Encounter Details Date Type Department Care Team (Latest Contact Info) Description 06/18/2024 Travel Social History Tobacco Use Types Packs/Day Years Used Date Smoking Tobacco: Never Passive Smoke Exposure: Never Smokeless Tobacco: Never Alcohol Use Standard Drinks/Week Comments Never 0 (1 standard drink = 0.6 oz pur e alcohol) [facility] Utilities Answer Date Recorded In the past 12 months has e electric, gas, oil, or water [employer] threatened to shut off services in your [...] 1 03/06/2024 PHQ-9 Total Score 5 03/06/2024 Dewey Scale Score: Not on file Sex and [...] st Contact Info) Description 06/16/2024 Procedure [facility] 330 [place] [address] [phone] 07/07/2024 1:30 PM EDT Appointment [facility] 330 [place] [address] [phone] 09/16/2024 2:00 PM EDT Office Visit [facility] [address] [facility], [address] [place] [address] Oziel Carrington MD [address] [place] [address] [place] [address] 10/07/2024 2:30 PM EDT Office Visit 2nd Floor [facility] [address] [facility] Nutrition 330 [facility] 2nd floor room 240 [place] [address] Felipe Bishop, CYNDY 330 [place] [address] 10/22/2024 11:00 AM EDT Appointment [facility] 330 [place] [address] [phone] John West MD [address] [place] [address] [place] [address] 11/03/2024 3:00 PM EDT Office Visit [facility] [address] [place] [address], [address] [place] [address] John West MD [address] [place] [address] [place] [address] documented as of this encounter Visit Diagnoses Not on filedocumented in this encounter Care Teams Clocksmith Relationship Specialty Start Date End Date Oziel Carrington MD [address] [place] [address] [place] [address] PCP - General Internal Medicine 10/19/22 documented as of this encounter
--- OUTSIDE RECORDS SUMMARY | 2024-06-26 20:13 | XMS_ITS | Encounter Summary ---
Author Organization [facility] Address 330 [facility] [address] Care Team Providers Care Rhinologist Name Role Phone Oziel Carrington MD Primary Care Provider +1- [phone] Encounter Details Date Type Department Care Team (Late st Contact Info) Description 06/01/2022 Billing Encounter [facility] 300 [facility] [address] [place] [address] Jeniffer De Santiago MD 625 [facility] [address] [place] [address] Social History Tobacco Use Types [...] st Contact Info) Description 06/16/2024 Procedure Pass [facility] 330 [place] [address] [phone] 07/07/2024 1:30 PM EDT Appointment [facility] 330 [place] [address] [phone] 09/16/2024 2:00 PM EDT Office Visit [facility] 725 [facility], [address] [place] [address] Oziel Carrington MD [address] [place] [address] [place] [address] 10/07/2024 2:30 PM EDT Office Visit [address] [facility] [address]240 [facility] Nutrition [address] floor room 240 [place] [address] Felipe Bishop, RD 330 [place] [address] 10/22/2024 11:00 AM EDT Appointment [facility] 330 [place] [address] [phone] John West MD [address] [place] [address] [place] [address] 11/03/2024 3:00 PM EDT Office Visit [facility] [address] [place] [address], [address] [place] [address] John West MD [address] [place] [address] documented as of this encounter Visit Diagnoses [...] documented as of this encounter Care Teams Rhinologist Relationship Specialty Start Date End Date Oziel Carrington MD [address] [place], [place] [phone] PCP - General Internal Medicine 10/19/22 documented as of this encounter
--- OUTSIDE RECORDS SUMMARY | 2024-06-26 20:13 | XMS_ITS | Encounter Summary ---
Author Organization [facility] Address 330 [facility] [place] [address] Care Team Providers Care Supervisor Packing Name Role Phone Oziel Carrington MD Primary Care Provider +1- [phone] Encounter Details Date Type Department Care Team ([facility] st Contact Info) Description 07/12/2022 Scan Document - View in Chart [facility] 330 [place] [address] Braxton Vicente MD 330 [place] [address] Social History Tobacco Use Types Packs/Day Years [...] was confirmed or suspected to have Coronavirus/COVID-19? Yes 07/11/2022 11:37 AM EDT documented as of this encounter Functional [...] Contact Info) Description 06/16/2024 Procedure Pass [facility] 330 [place] [address] [phone] 07/07/2024 1:30 PM EDT Appointment [address] [address] [phone] 09/16/2024 2:00 PM EDT Office Visit [facility] 725 [facility], [address] [place] [address] Oziel Carrington MD [address] [place] [address] [place] [address] 10/07/2024 2:30 PM EDT Office Visit 2nd [facility] [address]240 [facility] 330 [facility] 2nd floor room 240 [place] [address] Felipe Bishop, RD 330 [place] [address] 10/22/2024 11:00 AM EDT Appointment [facility] 330 [place] [address] [phone] John West MD [address] [place] [address] [place] [address] 11/03/2024 3:00 PM EDT Office Visit [facility] 5 [facility], [address] [place] [address] John West MD [address] [place] [address] documented as of this encounter Visit Diagnoses [...] documented as of this encounter Care Teams Supervisor Packing Relationship Specialty Start Date End Date Oziel Carrington MD [address] [place] [address], [place] [address] PCP - General Internal Medicine 10/19/22 documented as of this encounter
--- OUTSIDE RECORDS SUMMARY | 2024-06-26 20:13 | XMS_ITS | Encounter Summary ---
Author Organization [facility] Address 330 [facility] [place] [address] Care Team Providers Care Wholesaler Name Role Phone Oziel Carrington MD Primary Care Provider +1- [phone] Encounter Details Date Type Department Care Team (Late st Contact Info) Description 06/19/2024 Telephone [facility] 725 [facility], [address] [place] [address] Nadeen Cooper NP 725 [facility] [address] [place] [address] Social History Tobacco Use Types Packs/Day Years Used Date Smoking Tobacco: Never Passive Smoke Exposure: Never Smokeless Tobacco: Never Alcohol Use Standard Drinks/Week Comments Never 0 (1 standard drink = 0.6 oz pur e alcohol) [facility] Utilities Answer Date Recorded In the past 12 months has e [employer], gas, oil, or water [employer] threatened to shut off services in your [...] 1 03/06/2024 PHQ-9 Total Score 5 03/06/2024 [place] Scale Score: Not on file Sex and [...] st Contact Info) Description 06/16/2024 Procedure Pass [facility] 330 [place] [address] [phone] 07/07/2024 1:30 PM EDT Appointment [facility] 330 [place] [address] [phone] 09/16/2024 2:00 PM EDT Office Visit [facility] 725 [facility], [address] [place] [address] Oziel Carrington MD 5 [facility] [address] [place] [address] 10/07/2024 2:30 PM EDT Office Visit 2nd Floor [facility] [address]240 [facility] Nutrition 330 [facility] 2nd floor room 240 [place] [address] Felipe Bishop, CYNDY 330 [place] [address] 10/22/2024 11:00 AM EDT Appointment [facility] 330 [place] [address] [phone] John West MD [address] [place] [address] [place] [address] 11/03/2024 3:00 PM EDT Office Visit [facility] 725 [facility], [address] [place] [address] John West MD [address] [place] [address] [place] [address] documented as of this encounter Visit Diagnoses Not on filedocumented in this encounter Care Teams Wholesaler Relationship Specialty Start Date End Date Oziel Carrington MD [address] [place] [address] [place] [address] PCP - General Internal Medicine 10/19/22 documented as of this encounter
--- OUTSIDE RECORDS SUMMARY | 2024-06-26 20:13 | XMS_ITS | Encounter Summary ---
Author Organization [facility] Address 330 [facility] [place] [address] Care Team Providers Care Film Reproducer Name Role Phone Oziel Carrington MD Primary Care Provider +1- [phone] Encounter Details Date Type Department Care Team (Late st Contact Info) Description 07/22/2023 Scan Document - View in Chart [facility] Department 330 [place] [phone] Provider, MD Boo [address] [place], [place] [address] Social History Tobacco Use Types Packs/Day Years Used Date Smoking Tobacco: Never Smokeless Tobacco: Never Alcohol Use Standard Drinks/Week Comments Never 0 (1 standard drink = 0.6 oz pur e alcohol) Depression Answer Date Recorded Feeling Down, Depressed, or Hopeless 1 10/19/2022 PHQ-9 Total Score 2 10/19/2022 [place] Scale Score: Not on file Sex and [...] st Contact Info) Description 06/16/2024 Procedure Pass [facility] 330 [place] [address] [phone] 07/07/2024 1:30 PM EDT Appointment [address] [address] [phone] 09/16/2024 2:00 PM EDT Office Visit [facility] 5 [facility], [address] [place] [address] Oziel Carrington MD [address] [place] [address] [place] [address] 10/07/2024 2:30 PM EDT Office Visit 2nd [facility] [address]240 [facility] 330 [facility] 2nd floor room 240 [place] [address] Felipe Bishop, RD 330 [place] [address] 10/22/2024 11:00 AM EDT Appointment [facility] 330 [place] [address] [phone] John West MD [address] [place] [address] 11/03/2024 3:00 PM EDT Office Visit [facility] [address] [place] [address], [address] [place] [address] John West MD [address] [place] [address] documented as of this encounter Visit Diagnoses [...] documented as of this encounter Care Teams Film Reproducer Relationship Specialty Start Date End Date Oziel Carrington MD [address] [place] [address] PCP - General Internal Medicine 10/19/22 documented as of this encounter
--- OUTSIDE RECORDS SUMMARY | 2024-06-26 20:13 | XMS_ITS | Encounter Summary ---
Author Organization [facility] Address 330 [facility] [place] [address] Care Team Providers Care Duct Layer Helper Name Role Phone Oziel Carrington MD Primary Care Provider +1- [phone] Encounter Details Date Type Department Care Team (Late st Contact Info) Description 09/24/2022 Scan Document - View in Chart [facility] 300 [facility], [address] [place], [place] [phone] Oziel Carrington MD 725 [facility] [address] [place] [address] Social History Tobacco Use Types [...] In the last 10 days, have yo leela been in contact with someone who was confirmed or suspected to have Coronavirus/COVID-19? No / Unsure 09/03/2022 2:20 PM EDT documented as of this encounter [...] st Contact Info) Description 06/16/2024 Procedure Pass [facility] 330 [place] [address] [phone] 07/07/2024 1:30 PM EDT Appointment [facility] 330 [place] [address] [phone] 09/16/2024 2:00 PM EDT Office Visit [facility] 725 [facility], [address] [place] [address] Oziel Carrington MD [address] [place] [address] [place] [address] 10/07/2024 2:30 PM EDT Office Visit 2nd Floor [facility] [address] [facility] Nutrition 330 [facility] 2nd floor room 240 [place] [address] Felipe Bishop, CYNDY 330 [place] [address] 10/22/2024 11:00 AM EDT Appointment [facility] 330 [place] [address] [phone] John West MD [address] [place] [address] [place] [address] 11/03/2024 3:00 PM EDT Office Visit [facility] 725 [facility], [address] [place] [address] John West MD [address] [place] [address] documented as of this encounter Visit Diagnoses [...] documented as of this encounter Care Teams Duct Layer Helper Relationship Specialty Start Date End Date Oziel Carrington MD [address] [place] [address] PCP - General Internal Medicine 10/19/22 documented as of this encounter
--- OUTSIDE RECORDS SUMMARY | 2024-06-26 20:13 | XMS_ITS | Encounter Summary ---
Author Organization [facility] Address 330 [facility] [place] [address] Care Team Providers Care Hide Measuring Machine Operator Name Role Phone Oziel Carrington MD Primary Care Provider +1- [phone] Encounter Details Date Type Department Care Team (Late st Contact Info) Description 06/29/[address] [facility] Nurse Triage 300 [place] [address] Marcello Grissom RN Social History Tobacco Use Types Packs/Day Years Used Date Smoking Tobacco: Never Smokeless Tobacco: Never Alcohol Use Standard Drinks/Week Comments Never 0 (1 standard drink = 0.6 oz pur e alcohol) Depression Answer Date Recorded Feeling Down, Depressed, or Hopeless 1 10/19/2022 PHQ-9 Total Score 2 10/19/2022 Matteson Scale Score: Not on file Sex and [...] encounter Miscellaneous Notes * Telephone Encounter - Marcello Grissom RN - 06/29/2023 9:44 PM EDT Disposition: Home Care Patient instructed to call nurse line for worsening symptoms, follow up with Waiter when Office is Open, verbalized understanding. Opening statement given, patient 3 HIPAA identifiers verified with patient. Opening statement given, patient 3 HIPAA identifiers verified with patient. Patient encouraged to read the patient home care instructions for colonoscopy prep. Protocol: Constipation Call received from patient reported he had constipation for 5 days started 1 week ago, started taking Miralax with good effect for couple days, today haven't gone to the bathroom at all, last BM 06/28/2023, per patient it was pouring out of me , scheduled for colonscopy and endoscopy on , wants to know if he can take a stool softener. 1. STOOL PATTERN OR FREQUENCY: How often do you have a bowel movement (BM)? (Normal range: 3 times a day to every 3 days) When was your last BM? last BM 06/28/2023, BM everyday 2. STRAINING: Do you have to strain to have a BM? 3. RECTAL PAIN: Does your rectum hurt when the stool comes out? If Yes, ask: Do you have hemorrhoids? How bad is the pain? (Scale 1-10; or mild, moderate, severe) 4. STOOL COMPOSITION: Are the stools hard? 5. BLOOD ON STOOLS: Has there been any blood on the toilet tissue or on the surface of the BM? IfYes, ask: When was the last time? 6. CHRONIC CONSTIPATION: Is this a new problem for you? If No, ask: How long have you had this problem? (days, weeks, months) 7. CHANGES IN DIET OR HYDRATION: Have there been any recent changes in your diet? How much fluids are you drinking on a daily basis? How much have you had to drink today? 8. MEDICINES: Have you been taking any new medicines? Are you taking any narcotic pain medicines? (e.g., Dilaudid, morphine, Percocet, Vicodin) 9. LAXATIVES: Have you been using any stool softeners, laxatives, or enemas? If Yes, ask What, how often, and when was the last time? Miralax 10. ACTIVITY: How much walking do you do every day? Has your activity level decreased in the past week? 11. CAUSE: What do you think is causing the constipation? 12. OTHER SYMPTOMS: Do you have any other symptoms? (e.g., abdomen pain, bloating, fever, vomiting) denies 13. MEDICAL HISTORY: Do you have a history of hemorrhoids, rectal fissures, or rectal surgery or rectal abscess? 14. : Is there any chance you are ? When was your last menstrual period? N/A Protocol Used: Constipation (Adult) Protocol-Based Disposition: Home Care Positive Triage Question: * MILD constipation Care Advice Discussed: * Drink Adequate Liquids - Drink 6 to 8 cups (1,500 to 2,000 ml) of water each day. * Reasons To Call Back - Constipation lasts more than 1 week after using Care Advice - Abdomen swelling, vomiting or fever occur - Constant or increasing abdomen pain - You think you need to be seen - You become worse Negative Triage Questions: * [1] Vomiting AND [2] contains bile (green color) * Patient sounds very sick or weak to the triager * [1] Vomiting AND [2] abdomen looks much more swollen than usual * [1] Constant abdominal pain AND [2] present > 2 hours * [1] Rectal pain or fullness from fecal impaction (rectum full of stool) AND [2] NOT better after SITZ bath, suppository or enema * [1] Intermittent mild abdominal pain AND [2] fever * Abdomen is more swollen than usual * Last bowel movement (BM) > 4 days ago * Leaking stool * Unable to have a bowel movement (BM) without manually removing stool (using finger to pull out stool or perform disimpaction) * Unable to have a bowel movement (BM) without laxative or enema * [1] Constipation persists > 1 week AND [2] no improvement after using Care Advice * [1] Weight loss > 10 pounds (5 kg) AND [2] not dieting * Pencil-like, narrow stools * Taking new prescription medication * [1] Minor bleeding from rectum (e.g., blood just on toilet paper, few drops, streaks on surface of normal formed BM) AND [2] 3 or more times * [1] Uses laxative (e.g., PEG / Miralax, Milk of Magnesia) or enema AND [2] more than once a month * Constipation is a chronic symptom (recurrent or ongoing AND present > 4 weeks) documented in this encounter Plan of Treatment Upcoming Encounters Date Type Department Care Team (Late st Contact Info) Description 06/16/2024 Procedure Pass [facility] 330 [place] [address] [phone] 07/07/2024 1:30 PM EDT Appointment [facility] 330 [place] [address] [phone] 09/16/2024 2:00 PM EDT Office Visit [facility] [address] [place] [address], [address] [place] [address] Oziel Carrington MD [address] [place] [address] [place] [address] 10/07/2024 2:30 PM EDT Office Visit 2nd Floor [facility] #240 [facility] Nutrition 330 [facility] 2nd floor room 240 [place] [address] Felipe Bishop, CYNDY 330 [place] [address] 10/22/2024 11:00 AM EDT Appointment [facility] 330 [place] [address] [phone] John West MD [address] [place] [address] [place] [address] 11/03/2024 3:00 PM EDT Office Visit [facility] [address] [place] [address], [address] [place] [address] John West MD [address] [place] [address] [place] [address] documented as of this encounter Visit Diagnoses [...] documented as of this encounter Care Teams Hide Measuring Machine Operator Relationship Specialty Start Date End Date Oziel Carrington MD [address] [address] PCP - General Internal Medicine 10/19/22 documented as of this encounter
--- OUTSIDE RECORDS SUMMARY | 2024-06-26 20:13 | XMS_ITS | Encounter Summary ---
Author Organization [facility] Address [address] [facility] [place] [address] Care Team Providers Care Cold Mill Supervisor Name Role Phone Oziel Carrington MD Primary Care Provider +1- [phone] Reason for Referral * Diagnostic Imaging (Routine) - Closed Specialty Diagnoses / Procedures Referred By Contac t Referred To Contact Radiology Diagnoses IPMN (intraductal papillary mucinous neoplasm) Procedures MRI ABDOMEN WITH AND WITHOUT CONTRAST MRCP MRI ABDOMEN WITHOUT CONTRAST MRCP Oziel Carrington MD Phone: tel: fax: Referral ID Status Reason Start Date Expiration Date Visits Re quested Visits Authorized [id number] Closed 05/22/2023 05/21/2024 1 1 Encounter Details Date Type Department Care Team (Latest Contact Info) Description 06/12/2023 Ancillary Orders [facility] [address] [facility], [address] [place], [place] [phone] Oziel Carrington MD [address] [facility] [address] [place] [address] IPMN (intraductal papillary mucinous neoplasm) (Primary Dx); Mild protein-calorie malnutrition (CMS/HCC); Stage 3b chronic kidney disease (CMS/HCC); Pancytopenia (CMS/HCC); Severe episode of recurrent major depressive disorder, without psychotic features (CMS/HCC); Irritable bowel syndrome with both constipation and diarrhea; Phlegm in throat; Spinal stenosis of lumbar region without neurogenic claudication; Medicare annual wellness visit, subsequent Social History Tobacco Use Types Packs/Day Years Used Date Smoking Tobacco: Never Smokeless Tobacco: Never Alcohol Use Standard Drinks/Week Comments Never 0 (1 standard drink = 0.6 oz pur e alcohol) Depression Answer Date Recorded Feeling Down, Depressed, or Hopeless 1 10/19/2022 PHQ-9 Total Score 2 10/19/2022 [place] Scale Score: Not on file 3 Sex and Gender Information Value Date Recorded [...] st Contact Info) Description 06/16/2024 Procedure Pass [facility] MRI [address] [place] [address] [phone] 07/07/2024 1:30 PM EDT Appointment [facility] MRI [address] [place] [address] [phone] 09/16/2024 2:00 PM EDT Office Visit [facility] [address] [facility], [address] [place] [address] Oziel Carrington MD [address] [facility] [address] [place] [address] 10/07/2024 2:30 PM EDT Office Visit 2nd [facility] [address] [address] [facility] [address] [facility] 2nd floor room 240 [place] [address] Felipe Bishop, RD [address] [place] [address] 10/22/2024 11:00 AM EDT Appointment [facility] DXA [address] [place] [address] [phone] John West MD [address] [place] [address] [place] [address] 11/03/2024 3:00 PM EDT Office Visit [facility] [address] [place] [address], [address] [place] [address] John West MD [address] [place] [address] [place] [address] documented as of this encounter Results * MRI ABDOMEN WITH AND WITHOUT CONTRAST MRCP (06/12/2023 10:38 AM EST) Anatomical Region Laterality Modality Abdomen Magnetic Resonan ce 06/12/2023 9:45 AM EST Impressions 06/13/2023 3:34 PM EST Multiple pancreatic cystic lesions, measuring up to 1.3 cm in the body, likely side branch type intraductal papillary mucinous neoplasms (IPMNs). ??No solid pancreatic mass or main duct dilatation. ??Recommend MRCP every 2 years for 10 years of stability. ??Decision to discontinue imaging follow-up after 80 years of age should be anchored to the patient's overall health and preferences. Slowly increasing multiple T2 hyperintense splenic lesions, with the largest lesions being multiloculated with septal enhancement, favored to reflect hemangiomas or lymphangiomas, not well assessed on delayed contrast-enhanced sequence due to motion. Small right pleural effusion. Rico Miller MD, MPH, Adonis Hernández MD, Mami Saleh MD et al. Management of Incidental Pancreatic Cysts: A White Paper of the ACR Incidental Findings Committee 2017. JACR 2017; 14:911-923 Dictated: 06/13/2023 3:34 PM Report ID: [id number] Exam performed at [facility]. Report signed in external system at [facility] on 06/13/2023 15:34 Reported By: Ewelina Marie M.D. ([id number]) Signed By: Ewelina Marie M.D. ([id number]) Narrative 06/13/2023 3:34 PM EST RESPONSIBLE GUARD DRIVER: Ewelina Marie M.D. EXAMINATION: MRI ABDOMEN W WO CONTRAST MRCP CLINICAL INDICATION: Low-density pancreatic lesions on abdominal CT TECHNIQUE: Abdomen: Triplane T2, axial T2 with fat saturation, axial T1 in and out of phase, axial DWI, 3-D gradient echo precontrast, and dynamic 3-D gradient echo sequences after the administration of intravenous contrast in the axial plane. ??A coronal post gadolinium gradient echo sequence was also obtained. MRCP: MRCP was performed without intravenous contrast. ??Complex 2D and 3D reconstructions were generated. 3D images were performed on a separate workstation under physician supervision. Orders: 5.0 mL Gadavist was administered intravenously. COMPARISON: CT from 05/17/2023 FINDINGS: Motion degraded examination, most significant in the postcontrast and MRCP sequences. Lower chest: Unchanged small right pleural effusion. Liver: No focal suspicious lesions. ??No steatosis. ??Subcentimeter T2 hyperintense lesion at the hepatic dome (8:6) which is hyperenhancing to background parenchyma on 5 minutes delayed, likely a hemangioma. ??Scattered foci of arterial hyperenhancement in the right hepatic lobe (1601:31, 41, 49) which become isointense to background parenchyma without T2 or diffusion-weighted correlate, likely perfusional. ??Scattered subcentimeter cysts. Biliary: No biliary ductal dilation. Nondistended, noninflammed gallbladder. Spleen: No splenomegaly. ??Multiple T2 hyperintense/T1 hypointense splenic lesions, measuring up to 1.7 cm. Largest splenic lesions appear multiloculated with septal enhancement on portal venous phase, not well-visualized on 5 minute delayed sequence given artifact. ??No definite diffusion restriction. ??Not significantly changed compared to 05/20/2022, increased from 2017, and a few of these lesions were present on imaging dating back to 2011. Pancreas: MRCP images degraded by artifact. ??Multiple T2 hyperintense pancreatic cystic lesions, measuring up to 1.3 cm in the body (8:15, 15:70). ??No suspicious nodular enhancement. ??No solid masses or main ductal dilatation. Adrenal glands: No nodules. Kidneys/ureters: No solid masses or hydronephrosis. ??Bilateral punctate cysts. Bowel: Prominent colonic stool burden. Peritoneum/retroperitoneum: Small volume abdominal fluid. Lymph nodes: No lymphadenopathy. Vessels: Unchanged ectasia of the right common iliac artery (17:55). ??Patent portal vein. Bones/soft tissues: No suspicious marrow replacing lesions. ??Unchanged severe scoliosis centered at L1-L2 with right lateral listhesis of L1, L2, and L3 with associated degenerative changes. ??Pectus excavatum. ??Postsurgical changes in the anterior abdominal wall. Procedure Note Ewelina Marie MD - 06/13/2023 RESPONSIBLE GUARD DRIVER: Ewelina Marie M.D. EXAMINATION: MRI ABDOMEN W WO CONTRAST MRCP CLINICAL INDICATION: Low-density pancreatic lesions on abdominal CT TECHNIQUE: Abdomen: Triplane T2, axial T2 with fat saturation, axial T1 in and out of phase,axial DWI, 3-D gradient echo precontrast, and dynamic 3-D gradient echosequences after the administration of intravenous contrast in the axialplane. A coronal post gadolinium gradient echo sequence was alsoobtained. MRCP: MRCP was performed without intravenous contrast. Complex 2D and 3Dreconstructions were generated. 3D images were performed on a separateworkstation under physician supervision. Orders: 5.0 mL Gadavist was administered intravenously. COMPARISON: CT from 05/17/2023 FINDINGS: Motion degraded examination, most significant in the postcontrast and MRCPsequences. Lower chest: Unchanged small right pleural effusion. Liver: No focal suspicious lesions. No steatosis. Subcentimeter [id number] lesion at the hepatic dome (8:6) which is hyperenhancing tobackground parenchyma on 5 minutes delayed, likely a hemangioma.Scattered foci of arterial hyperenhancement in the right hepatic lobe(1601:31, 41, 49) which become isointense to background parenchyma withoutT2 or diffusion-weighted correlate, likely perfusional. Scatteredsubcentimeter cysts. Biliary: No biliary ductal dilation. Nondistended, noninflammedgallbladder. Spleen: No splenomegaly. Multiple T2 hyperintense/T1 hypointense spleniclesions, measuring up to 1.7 cm. Largest splenic lesions appearmultiloculated with septal enhancement on portal venous phase, notwell-visualized on 5 minute delayed sequence given artifact. No definitediffusion restriction. Not significantly changed compared to 05/20/2022,increased from 2017, and a few of these lesions were present on imagingdating back to 2012. Pancreas: MRCP images degraded by artifact. Multiple T2 hyperintensepancreatic cystic lesions, measuring up to 1.3 cm in the body (8:15,15:70). No suspicious nodular enhancement. No solid masses or mainductal dilatation. Adrenal glands: No nodules. Kidneys/ureters: No solid masses or hydronephrosis. Bilateral punctatecysts. Bowel: Prominent colonic stool burden. Peritoneum/retroperitoneum: Small volume abdominal fluid. Lymph nodes: No lymphadenopathy. Vessels: Unchanged ectasia of the right common iliac artery (17:55).Patent portal vein. Bones/soft tissues: No suspicious marrow replacing lesions. Unchangedsevere scoliosis centered at L1-L2 with right lateral listhesis of L1, L2,and L3 with associated degenerative changes. Pectus excavatum.Postsurgical changes in the anterior abdominal wall. 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 Recommend MRCP every 2years for 10 years of stability. Decision to discontinue imagingfollow-up after 80 years of age should be anchored to the patient'soverall health and preferences. Slowly increasing multiple T2 hyperintense splenic lesions, with thelargest lesions being multiloculated with septal enhancement, favored toreflect hemangiomas or lymphangiomas, not well assessed on delayedcontrast-enhanced sequence due to motion. Small right pleural effusion. Rico Miller MD, MPH, Adonis Hernández MD, Mami Saleh MD et al.Management of Incidental Pancreatic Cysts: A White Paper of the ACRIncidental Findings Committee 2017. JACR 2017; 14:[id number] Dictated: 06/13/2023 3:34 PM Report ID: [id number] Exam performed at [facility]. Report signed in external system at [facility] on 415:34 Reported By: Ewelina Marie M.D. ([id number]) Signed By: Ewelina Marie M.D. 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 Phlegm in throat Spinal stenosis of lumbar region without neurogenic claudication Medicare annual wellness visit, subsequent documented in this encounter Additional Health Concerns Infection Onset Date Last Indicated Resolved Time Highly Infectious Respirator y Virus (Rule Out) 07/24/2023 07/24/2023 07/25/2023 7:07 AM E DT Influenza 07/24/2023 07/24/2023 07/31/2023 1:52 AM EDT Highly Infectious Respirator y Virus (Rule Out) 12/13/2023 12/14/2023 12/14/2023 12:49 AM EDT Highly Infectious Respiratory Virus 06/04/202406/0406/16/2024 11:33 AM EST documented as of this encounter Care Teams Cold Mill Supervisor Relationship Specialty Start Date End Date Oziel Carrington MD [address] [place] [address] PCP - General Internal Medicine 10/19/22 documented as of this encounter
--- OUTSIDE RECORDS SUMMARY | 2024-06-26 20:13 | XMS_ITS | Encounter Summary ---
Author Organization [facility] Address [address] [facility] [place] [address] Care Team Providers Care Agronomy Teacher Name Role Phone Oziel Carrington MD Primary Care Provider +1- [phone] Encounter Details Date Type Department Care Team (Late st Contact Info) Description 05/02/2023 Scan Document - View in Chart [facility] [address] [place] [address] Yang Marsh MD 330 [facility] [place], [place] [phone] Social History Tobacco Use Types Packs/Day Years Used Date Smoking Tobacco: Never Smokeless Tobacco: Never Alcohol Use Standard Drinks/Week Comments Never 0 (1 standard drink = 0.6 oz pur e alcohol) Depression Answer Date Recorded Feeling Down, Depressed, or Hopeless 1 10/19/2022 PHQ-9 Total Score 2 10/19/2022 [place] Scale Score: Not on file Sex and [...] st Contact Info) Description 06/16/2024 Procedure Pass [facility] [address] [place] [address] [phone] 07/07/2024 1:30 PM EDT Appointment [facility] [address] [place] [address] [phone] 09/16/2024 2:00 PM EDT Office Visit [facility] [address] [facility], [address] [place] [address] Oziel Carirngton MD [address] [place] [address] [place] [address] 10/07/2024 2:30 PM EDT Office Visit [address] [place] [address] [address] [facility] 330 [facility] 2nd floor room 240 [place] [address] Felipe Bishop, CYNDY [address] [place] [address] 10/22/2024 11:00 AM EDT Appointment [facility] 330 [place] [address] [phone] John West MD [address] [place] [address] [place] [address] 11/03/2024 3:00 PM EDT Office Visit [facility] [address] [facility], [address] [place] [address] John West MD [address] [place] [address] documented as of this encounter Visit Diagnoses [...] documented as of this encounter Care Teams Agronomy Teacher Relationship Specialty Start Date End Date Oziel Carrington MD [address] [place] [address] PCP - General Internal Medicine 10/19/22 documented as of this encounter
--- OUTSIDE RECORDS SUMMARY | 2024-06-26 20:13 | XMS_ITS | Encounter Summary ---
Author Organization [facility] Address [address] [facility] [place] [address] Care Team Providers Care Lifter/Driver Name Role Phone Oziel Carrington MD Primary Care Provider +1- [phone] Encounter Details Date Type Department Care Team (Late st Contact Info) Description 02/10/2024 Procedure Pass [facility] [address] [place] [address] [phone] Social History Tobacco Use Types Packs/Day Years Used Date Smoking Tobacco: Never Smokeless Tobacco: Never Alcohol Use Standard Drinks/Week Comments Never 0 (1 standard drink = 0.6 oz pur e alcohol) [facility] Utilities Answer Date Recorded In the past 12 months has e electric, gas, oil, or water [email or web address] threatened to shut off services in your [...] 1 10/19/2022 PHQ-9 Total Score 2 10/19/2022 [place] Scale Score: Not on file Sex and [...] st Contact Info) Description 06/16/2024 Procedure Pass [facility] MRI [address] [place] [address] [phone] 07/07/2024 1:30 PM EDT Appointment [facility] MRI [address] [place] [address] [phone] 09/16/2024 2:00 PM EDT Office Visit [facility] [address] [place] [address], [address] [place] [address] Oziel Carrington MD 5 [facility] [address] [place] [address] 10/07/2024 2:30 PM EDT Office Visit 2nd Floor [facility] [address] [facility] 330 [facility] 2nd floor room [address] [place] [address] Felipe Bishop, CYNDY 330 [place] [address] 10/22/2024 11:00 AM EDT Appointment [facility] 330 [place] [address] [phone] John West MD [address] [place] [address] [place] [address] 11/03/2024 3:00 PM EDT Office Visit [facility] [address] [facility], [address] [place] [address] John West MD [address] [place] [address] [place] [address] documented as of this encounter Visit Diagnoses Not on filedocumented in this encounter Additional Health Concerns Infection Onset Date Last Indicated Resolved Time Highly Infectious Respiratory Virus 06/04/202406/0406/16/2024 11:33 AM EST documented as of this encounter Care Teams Lifter/Driver Relationship Specialty Start Date End Date Oziel Carrington MD 5 [facility] [address] [place] [address] PCP - General Internal Medicine 10/19/22 documented as of this encounter
--- OUTSIDE RECORDS SUMMARY | 2024-06-26 20:13 | XMS_ITS | Encounter Summary ---
Author Organization [facility] Address [address] [facility] [place] [address] Care Team Providers Care Shank Archer Name Role Phone Oziel Carrington MD Primary Care Provider +1- [phone] Encounter Details Date Type Department Care Team (Late st Contact Info) Description 11/01/2022 Billing Encounter [facility] Main Lab [address] [place] [address] Nat Avilez, JUNIOR [address] [facility] [address] [place] [address] Social History Tobacco Use Types Packs/Day Years Used Date Smoking Tobacco: Never Smokeless Tobacco: Never Alcohol Use Standard Drinks/Week Comments Never 0 (1 standard drink = 0.6 oz pur e alcohol) Depression Answer Date Recorded Feeling Down, Depressed, or Hopeless 1 10/19/2022 PHQ-9 Total Score 2 10/19/2022 [place] Scale Score: Not on file Sex and [...] st Contact Info) Description 06/16/2024 Procedure Pass [facility] [address] [place] [address] [phone] 07/07/2024 1:30 PM EDT Appointment [facility] [address] [place] [address] [phone] 09/16/2024 2:00 PM EDT Office Visit [facility] [address] [facility], [address] [place] [address] Oziel Carrington MD [address] [place] [address] [place] [address] 10/07/2024 2:30 PM EDT Office Visit 2nd Floor [facility] [address] [facility] 330 [facility] 2nd floor room [address] [place] [address] Felipe Bishop, CYNDY [address] [place] [address] 10/22/2024 11:00 AM EDT Appointment [facility] 330 [place] [address] [phone] John West MD [address] [place] [address] [place] [address] 11/03/2024 3:00 PM EDT Office Visit [facility] [address] [facility], [address] [place] [address] John West MD [address] [place] [address] [place] [address] documented as of this encounter Visit Diagnoses [...] documented as of this encounter Care Teams Shank Archer Relationship Specialty Start Date End Date Oziel Carrington MD [address] [address] PCP - General Internal Medicine 10/19/22 documented as of this encounter
--- OUTSIDE RECORDS SUMMARY | 2024-06-26 20:13 | XMS_ITS | Encounter Summary ---
Author Organization [facility] Address [address] [facility] [place] [address] Care Team Providers Care Oliver Filter Operator Name Role Phone Oziel Carrington MD Primary Care Provider +1- [phone] Encounter Details Date Type Department Care Team (Late st Contact Info) Description 06/11/2022 Billing Encounter [facility] [address] [facility] [place] [address] Jeniffer De Santiago MD 625 [facility] [address] [place] [address] Social History Tobacco Use Types [...] Description 06/16/2024 Procedure Pass [facility] 330 [place] [address] [phone] 07/07/2024 1:30 PM EDT Appointment [facility] [address] [place] [address] [phone] 09/16/2024 2:00 PM EDT Office Visit [facility] [address] [facility], [address] [place] [address] Oziel Carrington MD [address] [place] [address] [place] [address] 10/07/2024 2:30 PM EDT Office Visit 2nd [facility] [address] [facility] [address] floor room 240 [place] [address] Felipe Bishop, RD [address] [place] [address] 10/22/2024 11:00 AM EDT Appointment [facility] 330 [place] [address] [phone] John West MD [address] [place] [address] [place] [address] 11/03/2024 3:00 PM EDT Office Visit [facility] [address] [place] [address], [address] [place] [address] John West MD [address] [place] [address] documented as of this encounter Visit Diagnoses [...] documented as of this encounter Care Teams Oliver Filter Operator Relationship Specialty Start Date End Date Oziel Carrington MD [address] [place], [place] [phone] PCP - General Internal Medicine 10/19/22 documented as of this encounter
--- OUTSIDE RECORDS SUMMARY | 2024-06-26 20:13 | XMS_ITS | Encounter Summary ---
Author Organization [facility] Address 330 [facility] [place] [address] Care Team Providers Care Clinical Mental Health Counselor Name Role Phone Oziel Carrington MD Primary Care Provider +1- [phone] Reason for Visit * Reason Onset Date Comments Hospital follow up apt 05/19/2024 Encounter Details Date Type Department Care Team (Late st Contact Info) Description 05/19/2024 Telephone [facility] [address] [facility], [address] [place] [address] Oziel Carrington MD 5 [facility] [address] [place] [address] Hospital follow up apt Social History Tobacco Use Types Packs/Day Years Used Date Smoking Tobacco: Never Passive Smoke Exposure: Never Smokeless Tobacco: Never Alcohol Use Standard Drinks/Week Comments Never 0 (1 standard drink = 0.6 oz pur e alcohol) [facility] Utilities Answer Date Recorded In the past 12 months has e electric, gas, oil, or water [employer] threatened to shut off services in your [...] 1 03/06/2024 PHQ-9 Total Score 5 03/06/2024 Collins Scale Score: Not on file Sex and [...] encounter Miscellaneous Notes * Telephone Encounter - Chichi Davy Little - 05/19/2024 12:33 PM EST Hi, Pt requires HFU appt. Reason for Hospitalization: Depression with suicidal Admitted Date:04-30-2024 Discharge Date: 05-25-2024 Name of Hospital/Rehab facility: [facility] Case Dr: Dr Braulio Bird Best number for call back: [phone] Name of the caller: Razia Silva Caller Status (i.e. Patient/Pt Contact/Proxy/Provider): foster care worker Thank you, Chichi documented in this encounter Plan of Treatment Upcoming Encounters Date Type Department Care Team (Late st Contact Info) Description 06/16/2024 Procedure Pass [facility] 330 [place] [address] [phone] 07/07/2024 1:30 PM EDT Appointment [address] [address] [phone] 09/16/2024 2:00 PM EDT Office Visit [facility] [address] [place] [address], [address] [place] [address] Oziel Carrington MD [address] [place] [address] 10/07/2024 2:30 PM EDT Office Visit 2nd [facility] [address] [facility] Nutrition 330 [facility] 2nd floor room 240 [place] [address] Felipe Bishop, CYNDY 330 [place] [address] 10/22/2024 11:00 AM EDT Appointment [address] [address] [phone] John eWst MD [address] [place] [address] 11/03/2024 3:00 PM EDT Office Visit [facility] [address] [facility], [address] [place] [address] John West MD [address] [facility] [address] [place] [address] documented as of this encounter Visit Diagnoses Not on filedocumented in this encounter Additional Health Concerns Infection Onset Date Last Indicated Resolved Time Highly Infectious Respiratory Virus 06/04/202406/0406/16/2024 11:33 AM EST documented as of this encounter Care Teams Clinical Mental Health Counselor Relationship Specialty Start Date End Date Oziel Carrington MD [address] [facility] Suite [facility] [place] [address] PCP - General Internal Medicine 10/19/22 documented as of this encounter
--- OUTSIDE RECORDS SUMMARY | 2024-06-26 20:13 | XMS_ITS | Encounter Summary ---
Author Organization [facility] Address 330 [place] [address] Care Team Providers Care Fish Receiver Name Role Phone Oziel Carrington MD Primary Care Provider +1- [phone] Encounter Details Date Type Department Care Team (Late st Contact Info) Description 04/04/2023 Billing Encounter [facility] 1 330 [place] [address] Nat Avilez, JUNIOR 625 [facility] 106 [place], [place] [phone] Social History Tobacco Use Types Packs/Day Years Used Date Smoking Tobacco: Never Smokeless Tobacco: Never Alcohol Use Standard Drinks/Week Comments Never 0 (1 standard drink = 0.6 oz pur e alcohol) Depression Answer Date Recorded Feeling Down, Depressed, or Hopeless 1 10/19/2022 PHQ-9 Total Score 2 10/19/2022 Homeland Scale Score: Not on file Sex and [...] Contact Info) Description 06/16/2024 Procedure Pass [facility] 330 [place] [address] [phone] 07/07/2024 1:30 PM EDT Appointment [facility] 330 [place] [address] [phone] 09/16/2024 2:00 PM EDT Office Visit [facility] [address] [facility], [address] [place] [address] Oziel Carrington MD [address] [place] [address] [place] [address] 10/07/2024 2:30 PM EDT Office Visit [address] [place] [address] [address] [facility] 330 [facility] 2nd floor room 240 [place] [address] Felipe Bishop, CYNDY 330 [place] [address] 10/22/2024 11:00 AM EDT Appointment [facility] 330 [place] [address] [phone] John West MD [address] [place] [address] [place] [address] 11/03/2024 3:00 PM EDT Office Visit [facility] [address] [facility], [address] [place] [address] John West MD [address] [place] [address] documented as of this encounter Visit Diagnoses [...] documented as of this encounter Care Teams Fish Receiver Relationship Specialty Start Date End Date Oziel Carrington MD [address] [place] [address] PCP - General Internal Medicine 10/19/22 documented as of this encounter
--- OUTSIDE RECORDS SUMMARY | 2024-06-26 20:13 | XMS_ITS | Encounter Summary ---
Author Organization [facility] Address [address] [place] [address] Care Team Providers Care Robotics Technician Name Role Phone Genevieve Cheung MD Primary Care Provider [phone] Oziel Carrington MD Primary Care Provider [phone]- [phone] Oziel Carrington MD Primary Care Provider [phone]- [phone] Oziel Carrington MD Primary Care Provider +1- [phone] Encounter Details Date Type Department Care Team (Late st Contact Info) Description 01/25/2022 Lab [facility] Orders Genevieve Cheung MD 725 [facility], [address] [place] [address] Calculus of kidney Social History Tobacco Use Types Packs/Day Years [...] Description 07/10/2024 4:30 PM EDT Office Visit [facility] Medicine 200 [facility] 3rd [place] [address] Jim Christensen MD 1 [facility] [address] [place] [address] In Person with Physician 03/05/2025 3:30 PM EST Office Visit [facility] Optometry [facility] [address] [facility], 5th [place] [address] Samantha Flores, LEELA 330 Ethel Rosaura [facility] 5th [place] [address] In Person with Food Photographer documented as of this encounter Procedures Procedure Name Priority Date/Time Associated Diagnosis Comments CULTURE, AEROBIC, URINE Routine 01/25/2022 12:08 PM EDT Calculus of kidney documented in this encounter Results * Culture, Aerobic, Urine (01/25/2022 12:08 PM EDT) Culture No growth TRIIN 01/26/2022 5:29 PM EDT [facility] Urine MID-STREAM URINE SPECIMEN / Unknown 01/25/2022 12:08 PM EDT 01/25/2022 8:59 PM EDT us Genevieve Cheung MD MICROBIOLOGY - GENERAL ORDERAB LES Final Result [facility] [address] [place] [address], documented in this encounter Visit Diagnoses Diagnosis Calculus of kidney documented in this encounter Care Teams Robotics Technician Relationship Specialty Start Date End Date Genevieve Cheung MD [address] [place] [address], [facility] [address] [place] [address] PCP - General 02/19/20 01/22/23 Oziel Carrington MD [address] [place] [address], [address] [place] [address] PCP - General Internal Medicine 05/21/23 01/09/24 Oziel Carrington MD [address] [place] [address] PCP - General 01/23/23 05/20/23 Oziel Carrington MD 725 [place] [address] PCP - General Internal Medicine 01/10/24 documented as of this encounter
--- OUTSIDE RECORDS SUMMARY | 2024-06-26 20:14 | XMS_ITS | Encounter Summary ---
Author Organization [facility] Address 330 [facility] [place] [address] Care Team Providers Care Clinical Investigator Name Role Phone Oziel Carrington MD Primary Care Provider +1- [phone] Encounter Details Date Type Department Care Team (Late Contact Info) Description 09/09/2018 B[facility] Encounter [facility] 330 [place] [address] Genevieve Cheung MD 725 [facility], [address] [place] [address] Social History Tobacco Use Types Packs/Day Years Used Date Smoking Tobacco: Never Smokeless Tobacco: Never Alcohol Use Standard Drinks/Week Comments No 0 (1 standard drink = 0.6 oz pur e alcohol) Sex and Gender Information Value Date Recorded Sex Assigned at Male 07/18/2021 5:48 PM EDT Legal Sex Male 3:32 PM EST Gender Identity Male 07/18/2021 5:48 PM EDT Sexual Orientation Straight 05/21/2024 7: 28 AM EST documented as of this encounter Plan of Treatment Upcoming Encounters Date Type Department Care Team (Late Contact Info) Description 06/16/2024 Procedure Pass [facility] 330 [place] [address] [phone] 07/07/2024 1:30 PM EDT Appointment [facility] 330 [place] [address] [phone] 09/16/2024 2:00 PM EDT Office Visit [facility] 725 [facility], [address] [place] [address] Oziel Carrington MD [address] [place] [address] [place] [address] 10/07/2024 2:30 PM EDT Office Visit 2nd Floor [facility] [address] [facility] 330 [facility] 2nd floor room 240 [place] [address] Felipe Bishop, CYNDY 330 [place] [address] 10/22/2024 11:00 AM EDT Appointment [facility] 330 [place] [address] [phone] John West MD [address] [place] [address] [place] [address] 11/03/2024 3:00 PM EDT Office Visit [facility] 725 [facility], [address] [place] [address] John West MD [address] [place] [address] [place] [address] documented as of this encounter Visit Diagnoses [...] as of this encounter Care Teams Clinical Investigator Relationship Specialty Start Date End Date Oziel Carrington MD [address] [place] [address] PCP - General Internal Medicine 10/19/22 documented as of this encounter
--- OUTSIDE RECORDS SUMMARY | 2024-06-26 20:14 | XMS_ITS | Encounter Summary ---
Author Organization [facility] Address 330 [facility] [place] [address] Care Team Providers Care Transportation Mechanic Name Role Phone Oziel Carrington MD Primary Care Provider +1- [phone] Encounter Details Date Type Department Care Team (Late st Contact Info) Description 04/13/2022 Billing Encounter [facility] 300 [facility], [address] [place] [address] Arlin Cabello MD 300 [facility], [address] [place] [address] Social History Tobacco Use Types Packs/Day Years [...] suspected to have Coronavirus/COVID-19? No / Unsure 04/12/2022 11:06 AM EST documented as of this encounter [...] st Contact Info) Description 06/16/2024 Procedure Pass [facility] 330 [place] [address] [phone] 07/07/2024 1:30 PM EDT Appointment [facility] 330 [place] [address] [phone] 09/16/2024 2:00 PM EDT Office Visit [facility] 725 [facility], [address] [place] [address] Oziel Carrington MD [address] [place] [address] [place] [address] 10/07/2024 2:30 PM EDT [facility] [address] [facility] Nutrition [address] floor room 240 [place] [address] Felipe Bishop, RD 330 [place] [address] 10/22/2024 11:00 AM EDT Appointment [facility] 330 [place] [address] [phone] John West MD [address] [place] [address] [place] [address] 11/03/2024 3:00 PM EDT Office Visit [facility] 5 [facility], [address] [place] [address] John West MD [address] [place] [address] documented as of this encounter Visit Diagnoses [...] documented as of this encounter Care Teams Transportation Mechanic Relationship Specialty Start Date End Date Oziel Carrington MD [address] [place] [address] PCP - General Internal Medicine 10/19/22 documented as of this encounter
--- OUTSIDE RECORDS SUMMARY | 2024-06-26 20:14 | XMS_ITS | Encounter Summary ---
Author Organization [facility] Address [address] [place] [address] Care Team Providers Care Phlebotomy Services Technician Name Role Phone Oziel Carrington MD Primary Care Provider +1- [phone] Oziel Carrington MD Primary Care Provider +1- [phone] Encounter Details Date Type Department Care Team (Late st Contact Info) Description 08/05/2023 Lab Re[facility] Orders Oziel Carrington MD 725 [place] [address] Social History Tobacco Use Types Packs/Day Years [...] Department Care Team (Late Contact Info) Description 07/10/2024 4:30 PM EDT Office Visit [facility] Pain Medicine [address] 3rd [place] [address] Jim Christensen MD 1 [facility] 105 [place] [address] In Person with Physician 03/05/2025 3:30 PM EST Office Visit [facility] Optometry [facility] 98 [facility], 5th [place] [address] Samantha Flores, OD 330 [facility] 5th [place] [address] In Person with Seed Sales Manager documented as of this encounter Visit Diagnoses Not on filedocumented in this encounter Care Teams Phlebotomy Services Technician Relationship Specialty Start Date End Date Oziel Carrington MD PCP - General Internal Medicine 05/21/23 01/09/24 Oziel Carrington MD 725 [place] [address] PCP - General Internal Medicine 01/10/24 documented as of this encounter
--- OUTSIDE RECORDS SUMMARY | 2024-06-26 20:14 | XMS_ITS | Encounter Summary ---
Author Organization [facility] Address 330 [place] [address] Care Team Providers Care Radio Technician Name Role Phone Oziel Carrington MD Primary Care Provider +1- [phone] Reason for Referral * Diagnostic Imaging (Routine) - Closed Specialty Diagnoses / Procedures Referred By Contac t Referred To Contact Diagnoses Other chest pain Procedures Nuclear Medicine Myocardial Perfusion SPECT (Multi) Jasper Faria MD 330 [place] [address] Phone: tel: fax: Referral ID Status Reason Start Date Expiration Date Visits Re quested Visits Authorized [id number] Closed 01/23/2019 01/23/2020 4 4 Encounter Details Date Type Department Care Team (Late st Contact Info) Description 01/23/2019 Ancillary Orders [facility] [address] [place] [address], [address] [place] [address] Jasper Faria MD 330 [place] [address] Other chest pain Social History Tobacco Use Types Packs/Day Years [...] Description 06/16/2024 Procedure Pass [facility] 330 [place] [address] [phone] 07/07/2024 1:30 PM EDT Appointment [facility] 330 [place] [address] [phone] 09/16/2024 2:00 PM EDT Office Visit [facility] [address] [place] [address], [address] [place] [address] Oziel Carrington MD [address] [place] [address] [place] [address] 10/07/2024 2:30 PM EDT Office Visit [facility] [address] [facility] 330 [facility] 2nd floor room 240 [place] [address] Felipe Bishop, CYNDY 330 [place] [address] 10/22/2024 11:00 AM EDT Appointment [facility] 330 [place] [address] [phone] John West MD [address] [place] [address] [place] [address] 11/03/2024 3:00 PM EDT Office Visit [facility] [address] [place] [address], [address] [place] [address] Jhon West MD [address] [place] [address] Scheduled Orders Name Type Priority Associated Diagnoses Orde r Schedule Nuclear Medicine Myocardial Perfusion SPECT (Multi) Imaging Routine Other chest pain Expected: 01/23/2019, Expires: 01/24/2020 documented as of this encounter Visit Diagnoses Diagnosis Other chest pain documented in this encounter Additional Health Concerns [...] documented as of this encounter Care Teams Radio Technician Relationship Specialty Start Date End Date Oziel Carrington MD [address] [place], [place] [address] PCP - General Internal Medicine 10/19/22 documented as of this encounter
--- OUTSIDE RECORDS SUMMARY | 2024-06-26 20:14 | XMS_ITS | Continuity of Care Document ---
Author Organization [facility] Office Address [address] [place] [address] Care Team Providers Care Welfare Investigator Name Role Phone HITESH BEASLEY Primary Care Provider Assessment Encounter Date Assessment Date Assessment LastModified by Organization Details LastModified Time 06/15/2024 06/15/2024 Diagnostic Imaging: Grashey, axillary, and humerus views of left shoulder reviewed, demonstrate severe glenohumeral DJD, complete loss of glenohumeral joint space. Assessment/Plan : 78-year-old male presents severe left glenohumeral DJD. We had a long discussion regarding pertinent anatomy, imaging results, natural progression of the condition, and both non-surgical and surgical options. At this point, while he has severe arthritis on x-ray, he is certainly doing a lot of other issues, and worried about jumping to surgery given the fact that he is to ambulate with a walker due to his back. We discussed that if he does undergo surgery, he may need to stay in rehab, and that this would certainly make his recovery more difficult. We discussed the utility of a cortisone and gel injection, which was given under ultrasound guidance, I think is reasonable to see how he does with his injection, and continue injections until they stop working. We discussed that I can do cortisone injections every 3 months, but Medicare covers 2 Visco injections 6 months apart, with his first 1 coming today. I will see him back in about 3 months, and we will see how he is doing at that point. I also think it is reasonable to put in a tentative surgical date for left reverse shoulder placement, but we can see how he's feeling x 3 months. PROCEDURE: left shoulder injection MEDICATION: Durolane 60mg/3mL, 2mL Kenalog 40 mg/1 mL and 2 mL 0.25% bupivacaine plain, (glenohumeral) TREATMENT GIVEN: I confirmed that the patient does not have a history of prior adverse reactions, active infections, or relevant allergies. There was no erythema or warmth, and the skin was clear. After discussion of the risks including, but not limited to infection, localized soreness and swelling, reaction to medications, the patient consented to proceeding with the procedure.? ? ? Under sterile conditions, the shoulder was prepped with alcohol and chlorhexidine. Sterile ultrasound gel and the [email or web address] Ultrasound was used to ensure accurate needle placement. Using a medial approach and a 20-gauge spinal needle, the glenohumeral injection was performed. Ultrasound images were scanned into the patient's chart. The injection was completed without complication and a Band-Aid was applied. The patient tolerated the procedure well and was instructed to avoid strenuous activity for the next 24-48 hours and use ice, NSAIDs, or Tylenol for pain as needed.? ? ? [email or web address] Not available 06/15/2024 16:40:33 Plan of Treatment Reminders Order Date Submit Date Provider Last Modified By Organization Details Last Modified Time Details Appointments Est Surgical Consult 20 2024 03:00P Lv ALLEN MD Not available Not available Not available 240 Surgery 2024 12:00A Lv ALLEN MD Not available Not available Not available Lab None recorded . Referral None recorded . Procedures None recorded . Surgeries None recorded . Imaging None recorded . Medication Orders Durolane 60 mg/3 mL intra-ar ticular syringe 2024 025 [email or web address] [id number], [address] [place], [address], 06/15/2024 17:23:25 Kenalog 40 mg/mL suspensi on for injectio n 2024 025 [email or web address] [id number], [address] [place], [address], 06/15/2024 17:23:25 Patient TargetsNo targets recorded. Patient InstructionsNo instructions recorded. Reason for Referral None Reported. Results Created Date Observation Date Name Description Value Unit Range Abnormal Flag Note LastModifiedBy Organization Detail LastModifiedTime 06/16/19 25 06/15/2024 XR, humer us Reyna [employer] Pt Name : JODY FISHER 1 - Date: 1945 Sex: M Locati on : [facility] ALLIED DXRAD Visit: [id number] Admit Date: 2024 Date of Servic e: 2024 Exam : XR HUMERU S 1 VW LEFT Status : Final Order MD : ANDERW AMEZQUITA Ord Tel#:( [phone] CC Provid er:, ------ ------ ------ ------ ------ ------ ------ ------ ------ ------ ------ ------ ------ - Left should er 2 views: Severe osteoa rthrit ic change s are presen t with, eburna tion and subcho ndral cyst format ion. Superi or migrat ion of karen l head is seen. AP left humeru s: No additi onal osseou s abnorm alitie s are seen. REPORT SIGNED BY: FILIBERTO JASON 15:28: 27 [email or web address] [facility] [address] [facility], [place], [address], 06/15/2024 15:47:08 06/16/19 25 06/15/2024 XR, jena anthony, 2 or more view Reyna 3 day Blinds Pt Name : JODY FISHER 1 - Date: 1945 Sex: M Locati on : [facility] [employer] DXRAD Visit: [id number] Admit Date: 2024 Date of Servic e: 2024 Exam : XR SHOULD ER 2+ VW LEFT Status : Final Order MD : ANDREW AMEZQUITA Ord Tel#:( [phone] CC Provid er:, ------ ------ ------ ------ ------ ------ ------ ------ ------ ------ ------ ------ ------ - Left should er 2 views: Severe osteoa rthrit ic change s are presen t with, eburna tion and subcho ndral cyst format ion. Superi or migrat ion of karen l head is seen. AP left humeru s: No additi onal osseou s abnorm alitie s are seen. REPORT SIGNED BY: FILIBERTO JASON 15:28: 27 Workst ation: [id number] [email or web address] [facility] [address] [place] [address], [place], [address], 06/15/2024 15:47:05 Result Notes None recorded. Problems Name Problem SNOMED Code Status Onset Date Resolution Date Notes Provider Name and Address Organization Details Recorded Time Localized, primary osteoarthritis of the shoulder region 690637436 Active 2024 FERMIN Núñez [address] [place] [address], [phone], [facility] 5 16:41:02 Adult degenerative scoliosis deformity of spine Active 2024 FERMIN Núñez [address] [place], [phone], [facility] 16:41:04 Problem Notes None recorded. Procedures Surgical History Date Name Laterality Status Provider Name and Address Organization Details Recorded Time 04/15/2019 Other completed Chance Durant on [facility] 06/15/2024 15:53:15 1945 Other completed Chance [facility] 06/15/2024 15:53:28 Imaging Results None recorded. Procedure Notes None recorded. Medical Equipment None Reported. Allergies No known drug allergies Medications Name Sig Start Date Stop Date Status Note LastModified by Organization Details LastModified Time Seroquel 300 mg tablet Take 1 tablet every day by oral route. active Not Available Not Available No t Available tranylcypro mine 10 mg tablet Take 1 tablet 3 times a day by oral route. active Not Available Not Available No t Available Kenalog 40 mg/mL suspension for injection Take 2 mL by injection route. 2024 active US Guided Not Available Not Available Not Available Klonopin 0.5 mg tablet Take 1 tablet 3 times a day by oral route. active Not Available Not Available No t Available baclofen active Not Available Not Avai lable Not Available sodium chloride active Not Available Not Available Not Available Parnate active Not Available Not Avail able Not Available Tylenol active 1000mg TID Not Available Not Available Not Available pantoprazol e active Not Available Not Available Not Available Durolane 60 mg/3 mL intra-artic ular syringe Take 3 mL by intraartic ular route. 2024 active US Guided Not Available Not Available Not Available Vitals Date Recorded Body height Body mass index (BMI) Body weight Provider Name and Address Organization Details Last Updated DateTime 06/15/2024 165.1 cm 20 kg/m2 50447.08 g Chance Clifton [place] [facility] 06/15/2024 15:51:51 Social History Question Answer Notes LastModified by Organizat ion Details LastModified Time Tobacco Smoking Status Never Smoker Chance montoya [place] [facility] 06/15/2024 15:53:39 What Is Your Level Of Alcohol Consumption? None Information not available 06/15/2024 Sex: Unknown Functional Status None recorded. Mental Status None recorded. Family History Relationship Description Onset Age of this Age Resolved Age Notes LastModified by Organization Details LastModified Time Father No current problems or disability [email or web address] Not available 06/15 15:53:40 Mother No current problems or disability [email or web address] Not available 06/15 15:53:40 Medical History Condition Response Ulcer / Stomach Bleeding / Indigestion Y Past Encounters Encounter ID Performer Location Encounter Start Date Encounter Closed Date Diagnosis/Indication Diagnosis SNOMED-CT Code Diagnosis ICD10 Code Diagnosis Note [id number] FERMIN Núñez [place] [facility] [address] [facility],[address] [address] 06/15/2024 14:34:13 06/15/2024 16:56:30 Adult degenerative scoliosis deformity of spine 6509653736 M41.80 Localized, primary osteoarthritis of the shoulder region 153368745 M19.012 Health Concerns Section Related Observation LastModified by Organization Detai ls LastModified Time None Recorded Concern Status LastModified by Organization Details LastModified Time None Recorded Payers Encounter Date Sequence Insurance Name Policy Number Policy Friedman Covered Member ID Friedman Member ID Guarantor Name 06/15/2024 1 MEDICARE B-[place]: [facility] [employer] Cody Funez [id number] Cody Funez 06/15/2024 2 [facility] (MEDICARE SUPPLEMENT) Cody Funez [id number] Cody Lv Dee Dee Notes Date Note Type Note Provider Name and Address Organization Details Recorded Time 06/15/2024 text/html 78-year-old male presents chief complaint left shoulder pain. He has been doing this for years. Is been worsening since summer 2022, and is shooting down his arm to his elbow, and also up into his neck. He has significant scoliosis,and they with the use of a walker. He had a cortisone injection about 6 months ago, and also takes oral Tylenol, and wants to discuss other treatment options. FERMIN Núñez [address] [place] [address], [phone], [facility] 06/15/2024 17:25:13
--- OUTSIDE RECORDS SUMMARY | 2024-06-26 20:14 | XMS_ITS | Encounter Summary ---
Author Organization [facility] Address [address] [facility] [place] [address] Care Team Providers Care Mask Designer Name Role Phone Oziel Carrington MD Primary Care Provider [phone]- [phone] Encounter Details Date Type Department Care Team (Late Contact Info) Description 05/23/2018 Billing Encounter [facility] Lab [address] [place] [address] Nya Lowry MD [address] [place] [address], [address] [place] [address] Social History Tobacco Use Types Packs/Day Years [...] Upcoming Encounters Date Type Department Care Team ([facility] Contact Info) Description 06/16/2024 Procedure Pass [facility] MRI [address] [place] [address] [phone] 07/07/2024 1:30 PM EDT Appointment [facility] MRI [address] [place] [phone] [phone] 09/16/2024 2:00 PM EDT Office Visit [facility] [address] [facility], [address] [place] [address] Oziel Carrington MD [address] [place] [address] [place] [address] 10/07/2024 2:30 PM EDT Office Visit 2nd Floor [facility] [address] [facility] [address] [facility] 2nd floor room 240 [place] [address] Felipe Bishop, CYNDY [address] [place] [address] 10/22/2024 11:00 AM EDT Appointment [facility] 330 [place] [address] [phone] John West MD [address] [place] [address] [place] [address] 11/03/2024 3:00 PM EDT Office Visit [facility] [address] [facility], [address] [place] [address] John West MD [address] [place] [address] [place] [address] documented as of this encounter Visit Diagnoses [...] documented as of this encounter Care Teams Mask Designer Relationship Specialty Start Date End Date Oziel Carrington MD [address] [address] PCP - General Internal Medicine 10/19/22 documented as of this encounter
--- OUTSIDE RECORDS SUMMARY | 2024-06-26 20:14 | XMS_ITS | Encounter Summary ---
Author Organization [facility] Address [address] [facility] [place] [address] Care Team Providers Care Carburetor Specialist Name Role Phone Oziel Carrington MD Primary Care Provider +1- [phone] Encounter Details Date Type Department Care Team ([facility] Contact Info) Description 11/30/2020 Billing Encounter [facility] [address] [place] [address] Jonah Bledsoe MD [address] [facility], [address] [place] [address] Social History Tobacco Use Types Packs/Day Years [...] Exposure Response Date Recorded In the last month, have you been in contact with someone who was confirmed or suspected to have Coronavirus / COVID-19? No / Unsure 11/30/2020 12:49 PM EDT documented as of this encounter Plan of Treatment Upcoming Encounters Date Type Department Care Team ([facility] Contact Info) Description 06/16/2024 Procedure Pass [facility] MRI [address] [place] [address] [phone] 07/07/2024 1:30 PM EDT Appointment [facility] [address] [place] [address] [phone] 09/16/2024 2:00 PM EDT Office Visit [facility] [address] [facility], [address] [place] [address] Oziel Crarington MD [address] [place] [address] [place] [address] 10/07/2024 2:30 PM EDT Office Visit 2nd Floor [facility] [address] [facility] [address] [facility] 2nd floor room 240 [place] [address] Felipe Bishop, CYNDY [address] [place] [address] 10/22/2024 11:00 AM EDT Appointment [facility] DXA [address] [place] [address] [phone] John West MD [address] [place] [address] 11/03/2024 3:00 PM EDT Office Visit [facility] [address] [place] [address], [address] [place] [address] John West MD [address] [place] [address] documented as of this encounter Visit Diagnoses [...] documented as of this encounter Care Teams Carburetor Specialist Relationship Specialty Start Date End Date Oziel Carrington MD [address] [address] PCP - General Internal Medicine 10/19/22 documented as of this encounter
--- OUTSIDE RECORDS SUMMARY | 2024-06-26 20:14 | XMS_ITS | Encounter Summary ---
Author Organization Reyna Rico [facility] Address [address] [place] [address] Care Team Providers Care Gin Inspector Name Role Phone Genevieve Cheung MD Primary Care Provider [phone] Oziel Carrington MD Primary Care Provider [phone]- [phone] Oziel Carrington MD Primary Care Provider [phone]- [phone] Oziel Carrington MD Primary Care Provider +1- [phone] Encounter Details Date Type Department Care Team (Late st Contact Info) Description 12/11/2022 Lab [facility] Orders Betty Emerson, PERFORMANCE IMPROVEMENT MANAGER [address] [place] [address] Chronic kidney disease, stage 3 unspecified Social History Tobacco Use Types Packs/Day Years [...] Description 07/10/2024 4:30 PM EDT Office Visit [facility] Medicine [address] [facility] 3rd [place] [address] Jim Christensen MD [address] [place] [address] 105 [place], [place] [phone] In Person with Physician 03/05/2025 3:30 PM EST Office Visit [facility] Optometry [facility] [address] [facility] 5th [place] [address] Samantha Flores OD [address] [facility] 5th [place] [address] In Person with Clay Thrower documented as of this encounter Procedures Procedure Name Priority Date/Time Associated Diagnosis Comments CULTURE, AEROBIC, URINE Routine 12/11/2022 5:19 PM EDT Chronic kidney disease, stage 3 unspecified documented in this encounter Results * Culture, Aerobic, Urine (12/11/2022 5:19 PM EDT) Culture No growth TRINI 12/12/2022 5:01 PM EDT [facility] Urine MID-STREAM URINE SPECIMEN / Unknown 12/11/2022 5:19 PM EDT 12/11/2022 10:23 PM EDT us Betty Emerson PERFORMANCE IMPROVEMENT MANAGER MICROBIOLOGY - GENERAL ORDERABLE S Final Result [facility] [address] [place] [address], documented in this encounter Visit Diagnoses Diagnosis Chronic kidney disease, stage 3 unspecified (HCC) documented in this encounter Care Teams Gin Inspector Relationship Specialty Start Date End Date Genevieve Cheung MD [address] [place] [address], [place] [address] PCP - General 02/19/20 01/22/23 Oziel Carrington MD [address] [place] [address], [place] [address] PCP - General Internal Medicine 05/21/23 01/09/24 Oziel Carrington MD [address] [place] [address] PCP - General 01/23/23 05/20/23 Oziel Carrington MD [address] [place] [address] PCP - General Internal Medicine 01/10/24 documented as of this encounter
--- OUTSIDE RECORDS SUMMARY | 2024-06-26 20:14 | XMS_ITS | Encounter Summary ---
Author Organization [facility] Address [address] [facility] [place] [address] Care Team Providers Care Director Of Regulatory Affairs Name Role Phone Oziel Carrington MD Primary Care Provider [phone]- [phone] Reason for Visit * Reason Onset Date Comments Call back 12/19/2023 Encounter Details Date Type Department Care Team (Late st Contact Info) Description 12/19/[address] [place] [phone] Oziel Carrington MD [address] [place] [address] [place] [address] Call back Social History Tobacco Use Types Packs/Day Years Used Date Smoking Tobacco: Never Smokeless Tobacco: Never Alcohol Use Standard Drinks/Week Comments Never 0 (1 standard drink = 0.6 oz pur e alcohol) [facility] Utilities Answer Date Recorded In [...] 10/19/2022 PHQ-9 Total Score 2 10/19/2022 [place] Scale Score: Not on file Sex and [...] * Telephone Encounter - Fabby Pereyra - 12/19/2023 11:07 AM EDT Hi, Pt has a question/message for their PCP. Provider Name: Dr Carrington Best number for call back: [phone] Best time to call back: Anytime Name of the caller: Cody Funez Caller Status I.e. Patient/Pt Contact/Proxy/Provider: Pt Is this question in regard to your last visit? NA Question/Message: Pt is requesting a call back from Astrid in order to confirm the appt for tomorrow at 2pm with Dr Rodriguez please. Please assist with call back to Pt. Has the patient requested a call back? Yes Has the patient declined an appt? NA Thank you, CvL documented in this encounter Plan of Treatment Upcoming Encounters Date Type Department Care Team (Late st Contact Info) Description 06/16/2024 Procedure Pass [address] [address] [phone] 07/07/2024 1:30 PM EDT Appointment [address] [address] [phone] 09/16/2024 2:00 PM EDT Office Visit [facility] [address] [facility], [address] [place] [address] Oziel Carrington MD [address] [place] [address] 10/07/2024 2:30 PM EDT Office Visit [address] [place] [address] [address] [facility] 330 [facility] 2nd floor room 240 [place] [address] Felipe Bishop, CYNDY [address] [place] [address] 10/22/2024 11:00 AM EDT Appointment [address] [address] [phone] John West MD [address] [place] [address] [place], [place] [phone] 11/03/2024 3:00 PM EDT Office Visit [facility] [address] [facility], [address] [place] [address] John West MD [address] [facility] [address] [place] [address] documented as of this encounter Visit Diagnoses Not on filedocumented in this encounter Additional Health Concerns Infection Onset Date Last Indicated Resolved Time Highly Infectious Respiratory Virus 06/04/202406/0406/16/2024 11:33 AM EST documented as of this encounter Care Teams Director Of Regulatory Affairs Relationship Specialty Start Date End Date Oziel Carrington MD [address] [facility] [address] [place] [address] PCP - General Internal Medicine 10/19/22 documented as of this encounter
--- OUTSIDE RECORDS SUMMARY | 2024-06-26 20:14 | XMS_ITS | Encounter Summary ---
Author Organization [facility] Address [address] [facility] [place] [address] Care Team Providers Care Supervisor Long Goods Name Role Phone Oziel Carrington MD Primary Care Provider [phone]- [phone] Encounter Details Date Type Department Care Team (Late Contact Info) Description 07/09/2023 Procedure Pass [facility] [address] [place] [address] Social History Tobacco Use Types Packs/Day Years Used Date Smoking Tobacco: Never Smokeless Tobacco: Never Alcohol Use Standard Drinks/Week Comments Never 0 (1 standard drink = 0.6 oz pur e alcohol) Depression Answer Date Recorded Feeling Down, Depressed, or Hopeless 1 10/19/2022 PHQ-9 Total Score 2 10/19/2022 [place] Scale Score: Not on file Sex and [...] st Contact Info) Description 06/16/2024 Procedure Pass [facility] [address] [place] [address] [phone] 07/07/2024 1:30 PM EDT Appointment [facility] [address] [place] [address] [phone] 09/16/2024 2:00 PM EDT Office Visit [facility] [address] [facility], [address] [place] [address] Oziel Carrington MD [address] [place] [address] 10/07/2024 2:30 PM EDT Office Visit 2nd Floor [facility] [address] [facility] 330 [facility] 2nd floor room 240 [place] [address] Felipe Bishop, CYNDY [address] [place] [address] 10/22/2024 11:00 AM EDT Appointment [facility] DXA [address] [place] [address] [phone] John West MD [address] [place] [address] 11/03/2024 3:00 PM EDT Office Visit [facility] 5 [facility], [address] [place] [address] John West MD [address] [place] [address] documented as of this encounter Visit Diagnoses [...] as of this encounter Care Teams Supervisor Long Goods Relationship Specialty Start Date End Date Oziel Carrington MD [address] [place] [phone] PCP - General Internal Medicine 10/19/22 documented as of this encounter
--- OUTSIDE RECORDS SUMMARY | 2024-06-26 20:14 | XMS_ITS | Encounter Summary ---
Author Organization Reyna Jackson [facility] Address [address] [place] [address] Care Team Providers Care Network Support Specialist Name Role Phone Oziel Carrington MD Primary Care Provider +1- [phone] Oziel Carrington MD Primary Care Provider +1- [phone] Encounter Details Date Type Department Care Team (Late st Contact Info) Description 07/23/2023 Lab Requisition [facility] [address] [place] [address] Josefina Moya [address] [place] [address] Encounter for screening, unspecified Social History Tobacco Use Types Packs/Day [...] Description 07/10/2024 4:30 PM EDT Office Visit [facility] Pain Medicine 200 [facility] 3rd [place] [address] Jim Christensen MD [address] [address] In Person with Physician 03/05/2025 3:30 PM EST Office Visit [facility] Optometry [facility] 98 [facility] [address], 5th [place] [address] Samantha Flores, OD [address] 5th [place] [address] In Person with Metal Dresser documented as of this encounter Procedures Procedure Name Priority Date/Time Associated Diagnosis Comments CULTURE, AFB Routine 07/23/2023 10:28 AM EDT Encounter for screening, unspecified documented in this encounter Results * Culture, AFB (Smear per policy) (07/23/2023 10:28 AM EDT) Culture No Acid Fast Bacilli isolated at 42 days TRINI 09/03/2023 2:01 PM EDT [facility] xOther PLEURAL FLUID SPECIMEN / Unknown 07/23/2023 10:28 AM EDT 07/23/2023 1:33 PM EDT us Josefina Moya MICROBIOLOGY - GENERAL ORDERAB LES Final Result Performing Organization Address City/State/[facility] Co de Phone Number [address] [address] documented in this encounter Visit Diagnoses Diagnosis Encounter for screening, unspecified documented in this encounter Care Teams Network Support Specialist Relationship Specialty Start Date End Date Oziel Carrington MD PCP - General Internal Medicine 05/21/23 01/09/24 Oziel Carrington MD 725 [place] [address] PCP - General Internal Medicine 01/10/24 documented as of this encounter
--- OUTSIDE RECORDS SUMMARY | 2024-06-26 20:14 | XMS_ITS | Encounter Summary ---
Author Organization [facility] Address 330 [facility] [place] [place] [address] Care Team Providers Care Brick Picker Name Role Phone Oziel Carrington MD Primary Care Provider +1- [phone] Encounter Details Date Type Department Care Team (Late st Contact Info) Description 07/10/2023 Procedure Pass [facility] 330 [place] [phone] Social History Tobacco Use Types Packs/Day Years Used Date Smoking Tobacco: Never Smokeless Tobacco: Never Alcohol Use Standard Drinks/Week Comments Never 0 (1 standard drink = 0.6 oz pur e alcohol) Depression Answer Date Recorded Feeling Down, Depressed, or Hopeless 1 10/19/2022 PHQ-9 Total Score 2 10/19/2022 Munford Scale Score: Not on file Sex and [...] st Contact Info) Description 06/16/2024 Procedure Pass [facility] 330 [place] [address] [phone] 07/07/2024 1:30 PM EDT Appointment [facility] 330 [place] [address] [phone] 09/16/2024 2:00 PM EDT Office Visit [facility] [address] [facility], [address] [place] [address] Oziel Carrington MD [address] [place] [address] [place] [address] 10/07/2024 2:30 PM EDT Office Visit 2nd [facility] [address] [facility] [address] floor room 240 [place] [address] Felipe Bishop, CYNDY 330 [place] [address] 10/22/2024 11:00 AM EDT Appointment [facility] [address] [place] [address] [phone] John West MD [address] [place] [address] 11/03/2024 3:00 PM EDT Office Visit [facility] [address] [place] [address], [address] [place] [address] John West MD [address] [place] [address] documented as of this encounter Visit Diagnoses [...] documented as of this encounter Care Teams Brick Picker Relationship Specialty Start Date End Date Oziel Carrington MD [address] [address] PCP - General Internal Medicine 10/19/22 documented as of this encounter
--- OUTSIDE RECORDS SUMMARY | 2024-06-26 20:14 | XMS_ITS | Encounter Summary ---
Author Organization Reyna Jackson [facility] Address [address] [place] [address] Care Team Providers Care Aircraft Load Controller Name Role Phone Genevieve Cheung MD Primary Care Provider [phone] Oziel Carrington MD Primary Care Provider [phone]- [phone] Oziel Carrington MD Primary Care Provider +1- [phone] Oziel Carrington MD Primary Care Provider +1- [phone] Encounter Details Date Type Department Care Team (Late st Contact Info) Description 05/24/2022 Lab [facility] Orders Carroll Benoit MD [address] [address] Room 454 [place] [address] Social History Tobacco Use Types Packs/Day Years [...] Description 07/10/2024 4:30 PM EDT Office Visit [facility] Pain Medicine 200 [facility] 3rd [place] [address] Jim Christensen MD 1 [facility] [address] [place] [address] In Person with Physician 03/05/2025 3:30 PM EST Office Visit [facility] Opt[facility] 98 [facility], 5th [place] [address] Samantha Flores, LEELA [address] [facility] 5th [place] [address] In Person with Piano Professor documented as of this encounter Procedures Procedure Name Priority Date/Time Associated Diagnosis Comments CULTURE, BLOOD Routine 05/24/2022 11:14 AM EST CULTURE, BLOOD Routine 05/24/2022 9:42 AM EST documented in this encounter Results * Culture, Blood (05/24/2022 11:14 AM EST) Culture No growth after 5 days TRINI 05/29/2022 6:01 PM EST [facility] Blood PERIPHERAL NERVOUS SYSTEM STRUCTURE / Unknown 05/24/2022 11:14 AM EST 05/24/2022 5:45 PM EST us Carroll Benoit MD MICROBIOLOGY - GENERAL ORDER YENY Final Result Performing Organization Address City/[facility]/ZIP Co de Phone Number [facility] [address] [place] [address], [place] [phone] * Culture, Blood (05/24/2022 9:42 AM EST) Culture No growth after 5 days TRINI 05/29/2022 2:02 PM EST [facility] Blood PERIPHERAL NERVOUS SYSTEM STRUCTURE / Unknown 05/24/2022 9:42 AM EST 05/24/2022 1:12 PM EST us Carroll Benoit MD MICROBIOLOGY - GENERAL ORDER YENY Final Result Performing Organization Address City/[facility]/ZIP Co de Phone Number [facility] [address] [place] [address], [place] [phone] documented in this encounter Visit Diagnoses Not on filedocumented in this encounter Care Teams Aircraft Load Controller Relationship Specialty Start Date End Date Genevieve Cheung MD 725 [facility], [address] [place] [address] PCP - General 02/19/20 01/22/23 Oziel Carrington MD 725 [facility], [address] [place] [address] PCP - General Internal Medicine 05/21/23 01/09/24 Oziel Carrington MD [address] [place] [address] PCP - General 01/23/23 05/20/23 Oziel Carrington MD [address] [place] [address] PCP - General Internal Medicine 01/10/24 documented as of this encounter
--- OUTSIDE RECORDS SUMMARY | 2024-06-26 20:14 | XMS_ITS | Clinical Summary ---
Author Organization [facility] Address [address] [place] [address] Phone Care Team Providers Care Equipment Technician Name Role Phone Julia Rosales Unavailable Conditions or Problems Problem Name Problem Code Onset Date Status Entry Date Provider Comment Standard Description Annotate KIDNEY STONE [id number] (SNOMED CT) Active [facility] Kidney stone Medications Medication Instructions Start Date Stop Date Generic Name NDC Provider ATHLETES FOOT (TERBINAFINE) 1 % CREA terbinafine hcl 92950912404 [facility] KP FERROUS GLUCONATE 324 (37.5 Fe) MG TABS ferrous gluconate 80836601822 [facility] LOXAPINE SUCCINATE 10 MG CAPS loxapine succinate 22394813897 [facility] TROSPIUM CHLORIDE 20 MG TABS trospium 30870121378 [facility] TRANYLCYPROMINE SULFATE 10 MG TABS tranylcypromine 86618933283 [facility] ONETOUCH ULTRA STRP TEST DAILY blood sugar diagnostic 19669305335 [facility] CLONAZEPAM 1 MG TABS clonazepam 52998887285 [facility] MELOXICAM 15 MG TABS meloxicam 08364094073 [facility] QUETIAPINE FUMARATE 100 MG TABS quetiapine 71915702939 [facility] METHYLPHENIDATE HCL 20 MG TABS methylphenidate hcl 03472054490 [facility] Medications Administered No information available. Allergies, Adverse Reactions, Alerts Allergy Name Reaction Description Start Date Severity Statu s Provider TYRAMINE Critical Katarina Cee GUEST HOUSE MANAGER Results Date Name Value Unit Range Flag Description Office Visit: Urology Visit - NPT RM: 3 NITRITE URN negative Nitrite [Presence] in Urine by Test strip WBC DIPSTK U trace Leukocyt e esterase [Presence] in Urine by Test strip PROTEIN, URN trace Albumin [Presence] in Urine PH URINE 5.0 pH of Urine by Test strip HGB URINE negative hemoglobin , urine, by dipstick KETONES URN negative Ketones [Mass/volume] in Urine by Test strip GLUCOSE, URN negative Glucose [Mass/volume] in Urine by Test strip APPEARANCE U clear Appearan ce of Urine UA COLOR yellow Color of Uri ne Lab Report: SARS COV 2, RT P CR / LOC:[facility]OVID COVID-19 NOT DETECTED NOT DETECT SARS coronavirus 2 RNA [Presence] in Respiratory specimen by DELORES with probe detection Plan of Care Type Date Detail Pending order Patient encounte r procedure Pending order Patient encounte r procedure Pending order Calculus Pending order SARS COV 2 RT PC R (Pre-Surg) Pending order Patient encounte r procedure Pending order CT Abd Pel w/o c on (no IV, PO) Pending order Patient encounte r procedure Procedures No information available. Vital Signs No information available. Immunizations No information available. Advance Directives No information available.
--- OUTSIDE RECORDS SUMMARY | 2024-06-26 20:14 | XMS_ITS | Encounter Summary ---
Author Organization Reyna Rico [facility] Address [address] [place] [address] Care Team Providers Care Funeral Greeter Name Role Phone Oziel Carrington MD Primary Care Provider +1- [phone] Oziel Carrington MD Primary Care Provider +1- [phone] Oziel Carrington MD Primary Care Provider +1- [phone] Encounter Details Date Type Department Care Team (Late Contact Info) Description 04/10/2023 Lab [facility] Orders Aneta Gonzalez MD [address] [place] [address] Social History Tobacco Use Types Packs/Day Years [...] Description 07/10/2024 4:30 PM EDT [facility] 200 [facility] 3rd [place] [address] Jim Christensen MD 1 [facility] 105 [place] [address] In Person with Physician 03/05/2025 3:30 PM EST Office Visit [facility] Optometry [address], 5th [place] [address] Samantha Flores, OD [address] 5th [place] [address] In Person with Logistics Manager documented as of this encounter Procedures Procedure Name Priority Date/Time Associated Diagnosis Comments CULTURE, AEROBIC, URINE STAT 04/10/2023 7:01 AM EST documented in this encounter Results * Culture, Aerobic, Urine (04/10/2023 7:01 AM EST) Pathologist [facility] Culture 50,000-100,000 CFU/mL mixed urogenital lorie, probable contamination TRINI 04/11/2023 6:47 AM EST [facility] Urine MID-STREAM URINE SPECIMEN / Unknown 04/10/2023 7:01 AM EST 04/10/2023 10:33 AM EST us Aneta Gonzalez MD MICROBIOLOGY - GENERAL ORDERAB LES Final Result [facility] [address] [place] [address], documented in this encounter Visit Diagnoses Not on filedocumented in this encounter Care Teams Funeral Greeter Relationship Specialty Start Date End Date Oziel Carrington MD PCP - General Internal Medicine 05/21/23 01/09/24 Oziel Carrington MD [address] [place] [address] PCP - General 01/23/23 05/20/23 Oziel Carrington MD [address] [place] [address] PCP - General Internal Medicine 01/10/24 documented as of this encounter
--- OUTSIDE RECORDS SUMMARY | 2024-06-26 20:14 | XMS_ITS | Encounter Summary ---
Author Organization [facility] Address 330 [facility] [place] [address] Care Team Providers Care Crime Scene Analyst Name Role Phone Oziel Carrington MD Primary Care Provider +1- [phone] Encounter Details Date Type Department Care Team (Late Contact Info) Description 08/30/2020 Procedure Pass [facility] [address] [place] [address] Social History Tobacco Use Types Packs/Day Years [...] or suspected to have Coronavirus / COVID-19? Unable to assess 09/02/2020 8:50 AM EDT documented as of this encounter Plan of Treatment Upcoming Encounters Date Type Department Care Team [facility] Contact [facility] Description 06/16/2024 Procedure Pass [facility] MRI [address] [place] [address] [phone] 07/07/2024 1:30 PM EDT Appointment [facility] [address] [place] [address] [phone] 09/16/2024 2:00 PM EDT Office Visit [facility] [address] [facility], [address] [place] [address] Oziel Carrington MD [address] [place] [address] [place] [address] 10/07/2024 2:30 PM EDT Office Visit 2nd Floor [facility] [address] [facility] 330 [facility] 2nd floor room 240 [place] [address] Felipe Bishop, CYNDY [address] [place] [address] 10/22/2024 11:00 AM EDT Appointment [facility] 330 [place] [address] [phone] John West MD [address] [place] [address] [place] [address] 11/03/2024 3:00 PM EDT Office Visit [facility] [address] [facility], [address] [place] [address] John West MD [address] [place] [address] [place] [address] documented as of this encounter Visit Diagnoses [...] documented as of this encounter Care Teams Crime Scene Analyst Relationship Specialty Start Date End Date Oziel Carrington MD [address] [phone] PCP - General Internal Medicine 10/19/22 documented as of this encounter
--- OUTSIDE RECORDS SUMMARY | 2024-06-26 20:14 | XMS_ITS | Encounter Summary ---
Author Organization Reyna Jackson [facility] Address [address] [place] [address] Care Team Providers Care Dry Cans Operator Name Role Phone Oziel Carrington MD Primary Care Provider +1- [phone] Oziel Carrington MD Primary Care Provider +1- [phone] Encounter Details Date Type Department Care Team (Late Contact Info) Description 08/19/2023 Lab Requisition [facility] Orders Starla Hill MD [address] [facility] [address] [place] [address] Encounter for screening, unspecified Social History Tobacco [...] Description 07/10/2024 4:30 PM EDT Office Visit [facility] Pain Medicine [address] 3rd [place] [address] Jim Christensen MD 1 [facility] [address] [place] [address] In Person with Physician 03/05/2025 3:30 PM EST Office Visit [facility] Optometry [facility] 98 [facility], 5th [place] [address] Samantha Flores OD [address] 5th [place] [address] In Person with Ways Operator documented as of this encounter Procedures Procedure Name Priority Date/Time Associated Diagnosis Comments PHOSPHORUS Routine 08/19/2023 4:18 PM EDT Encounter for screening, unspecified BASIC METABOLIC PANEL Routine 08/19/2023 4:18 PM EDT Encounter for screening, unspecified documented in this encounter Results * Phosphorus (08/19/2023 4:18 PM EDT) Phosphorus 3.6 2.4 - 4.8 mg/dL [address] 08/20/2023 9:45 AM EDT [facility] Blood PERIPHERAL NERVOUS SYSTEM STRUCTURE / Unknown 08/19/2023 4:18 PM EDT 08/19/2023 8:14 PM EDT us Starla Hill MD LAB BLOOD ORDERABLES Final Resul t [facility] [address] [place] [address], * (ABNORMAL) Basic Metabolic Panel (08/19/2023 4:18 PM EDT) Sodium 138 134 - 144 mmol/L [address] 08/20/2023 9:45 AM EDT [facility] Potassium 4.4 3.2 - 5.1 mmol/L [facility] [address] 08/20/2023 9:45 AM EDT [facility] Comment:Samples tested in se rum may exhibit a higher potassium value than those tested on plasma. Our current range is based on plasma testing. Chloride 105 97 - 109 mmol/L [place] [id number] 08/20/2023 9:45 AM EDT [facility] Total CO2/Bicarbonat e 23 20 - 32 mmol/L [facility] [id number] 08/20/2023 9:45 AM EDT [facility] Anion Gap 10 5 - 15 mmol/L [facility] [address] 08/20/2023 9:45 AM EDT [facility] BUN 34(H) 9 - 26 mg/dL [address] 08/20/2023 9:45 AM EDT [facility] Creatinine, Blood 1.20 0.70 - 1.30 mg/dL [address] 08/20/2023 9:45 AM EDT [facility] Glucose, Blood 100 70 - 110 mg/dL [address] 08/20/2023 9:45 AM EDT [facility] Calcium 8.9 8.5 - 10.5 mg/dL [address] 08/20/2023 9:45 AM EDT [facility] Estimated GFR (MDRD) 59(L) >=60 mL/min/BSA [address] 08/20/2023 9:45 AM EDT [facility] Blood PERIPHERAL NERVOUS SYSTEM STRUCTURE / Unknown 08/19/2023 4:18 PM EDT 08/19/2023 8:14 PM EDT us Starla Hill MD LAB BLOOD ORDERABLES Final Resul t [facility] [address] [place] [address], documented in this encounter Visit Diagnoses Diagnosis Encounter for screening, unspecified documented in this encounter Care Teams Dry Cans Operator Relationship Specialty Start Date End Date Oziel Carrington MD PCP - General Internal Medicine 05/21/23 01/09/24 Oziel Carrington MD [address] [facility] [place] [address] PCP - General Internal Medicine 01/10/24 documented as of this encounter
--- OUTSIDE RECORDS SUMMARY | 2024-06-26 20:14 | XMS_ITS | Data Portability ---
Author Organization [place] [facility] [place] [facility] [place], [facility] Office Address [address] [facility], [address] [place] [address] Care Team Providers Care Liquid Chlorine Operator Name Role Phone HITESH BEASLEY Primary Care [...] the patient consented to proceeding with the procedure.?? Under sterile conditions, the shoulder was prepped with alcohol and chlorhexidine. Sterile ultrasound gel and the [email or web address] Ultrasound was used to ensure accurate needle [...] ice, NSAIDs, or Tylenol for pain as needed.?? [email or web address] Not available 06/15/2024 16:40:33 Plan of [...] intra-ar ticular syringe 2024 025 [email or web address] [id number], [address] [place], [address], 06/15/2024 17:23:25 Kenalog 40 mg/mL suspensi on for injectio n 2024 025 [email or web address] [id number], [address] [place], [address], 06/15/2024 17:23:25 Patient TargetsNo targets recorded. Patient InstructionsNo instructions recorded. Reason for Referral None Reported. Results Created Date Observation Date Name Description Value Unit Range Abnormal Flag Note LastModifiedBy Organization Detail LastModifiedTime 06/16/1906/15/2024 XR, humer us Reyna [employer]/[employer] Pt Name : JODY FISHER 1 - Date: 1945 Sex: M Locati on : [facility] DXRAD Visit: [id number] Admit Date: 2024 Date of Servic e: 2024 Exam : XR HUMERU S 1 VW LEFT Status : Final Order MD : ANDREW AMEZQUITA Ord Tel#:( [phone] CC Provid er:, ------ ------ ------ ------ [...] SIGNED BY: FILIBERTO JASON 15:28: 27 [email or web address] [facility] - [address], [place], [address], 06/15/2024 15:47:08 06/16/1906/15/2024 XR, shokenji anthony, 2 or more view Reyna [employer] Pt Name : JODY FISHER 1 - Date: 1945 Sex: M Locati on : [facility] DXRAD Visit: [id number] Admit Date: 2024 Date of Servic e: 2024 Exam : XR SHOULD ER 2+ VW LEFT Status : Final Order MD : ANDREW AMEZQUITA Ord Tel#:( [phone] CC Provid er:, ------ ------ ------ ------ [...] 15:28: 27 Workst ation: [id number] [email or web address] [place] [address] - [address] [place], [address], 06/15/2024 15:47:05 Result Notes None recorded. Problems Name Problem SNOMED Code Status Onset Date Resolution Date Notes Provider Name and Address Organization Details Recorded Time Localized, primary osteoarthritis of the shoulder region 854720759 Active 2024 FERMIN Núñez [address] [place] [address], [phone], [facility] [place] 5 16:41:02 Adult degenerative scoliosis deformity of spine Active 2024 FERMIN Núñez [address] [place] [address], [phone], [facility] [place] 5 16:41:04 Problem Notes None recorded. Procedures Surgical History Date Name Laterality Status Provider Name and Address Organization Details Recorded Time 04/15/2019 Other completed Chance Durant [facility] [place] 06/15/2024 15:53:15 1945 Other completed Chance [facility] [place] 06/15/2024 15:53:28 Imaging Results Imaging Date Name Status LastModified by Organiz ation Details LastModified Time 06/15/2024 XR, humerus completed [email or web address] [facility] - Rad [address] [place], [address], 06/15/2024 15:47:08 06/15/2024 XR, shoulder, 2 or more view completed [email or web address] [facility] - Rad [address] [facility] [place], [place], [address], 06/15/2024 15:47:05 Procedure Notes None recorded. Medical Equipment None [...] Updated DateTime 06/15/2024 165.1 cm 20 kg/m2 72536.08 g Chance Clifton MA [facility] [place] 06/15/2024 15:51:51 Social History Question Answer Notes LastModified by Organizat ion Details LastModified Time Tobacco Smoking Status Never Smoker Chance montoya MA [facility] [place] 06/15/2024 15:53:39 What Is Your Level Of Alcohol Consumption? None [email or web address] Information not available 06/15/2024 Sex: Unknown Functional Status None recorded. Mental Status None recorded. Family History Relationship Description Onset Age of this Age Resolved Age Notes LastModified by Organization Details LastModified Time Father No current problems or disability Not available 06/15 15:53:40 Mother No current problems or disability [email or web address] Not available 06/15 15:53:40 Medical History Condition Response Ulcer / Stomach Bleeding / Indigestion Y Past Encounters Encounter ID Performer Location Encounter Start Date Encounter Closed Date Diagnosis/Indication Diagnosis SNOMED-CT Code Diagnosis ICD10 Code Diagnosis Note [id number] FERMIN Núñez [place] [facility] [address] [facility] [address] [place] [address] 06/15/2024 14:34:13 06/15/2024 16:56:30 Adult degenerative scoliosis deformity of spine 9436286005 M41.80 Localized, primary osteoarthritis of the shoulder region 926267020 M19.012 Health Concerns Section Related Observation LastModified by Organization Detai ls LastModified Time None Recorded Concern Status LastModified by Organization Details LastModified Time None Recorded Advance Directives Directive None Recorded Payers Encounter Date Sequence Insurance Name Policy Number Policy Friedman Covered Member ID Friedman Member ID Guarantor Name 06/15/2024 1 [place]ICARE [place]: [employer] [place] Funez [id number] [place] Funez 06/15/2024 2 [facility] (MEDICARE SUPPLEMENT) [place] Funez [id number] [place] Funez Notes Date Note Type Note Provider Name [...] to discuss other treatment options. FERMIN Núñez [address] [place] [address], [place], [address], [facility] [place] 06/15/2024 17:25:13
--- OUTSIDE RECORDS SUMMARY | 2024-06-26 20:14 | XMS_ITS | Encounter Summary ---
Author Organization [facility] Address [address] [place] [address] Care Team Providers Care Education Associate Name Role Phone Oziel Carrington MD Primary Care Provider +1- [phone] Encounter Details Date Type Department Care Team (Late st Contact Info) Description 09/20/2023 Billing Encounter [facility] Main Lab [address] [place] [phone] Oziel Carrington MD [address] [id number] Social History Tobacco Use Types Packs/Day Years Used Date Smoking Tobacco: Never Smokeless Tobacco: Never Alcohol Use Standard Drinks/Week Comments Never 0 (1 standard drink = 0.6 oz pur e alcohol) Depression Answer Date Recorded Feeling Down, Depressed, or Hopeless 1 10/19/2022 PHQ-9 Total Score 2 10/19/2022 Parker Scale Score: Not on file Sex and [...] Description 06/16/2024 Procedure Pass [facility] [address] [place] [address] [phone] 07/07/2024 1:30 PM EDT Appointment [facility] [address] [place] [address] [phone] 09/16/2024 2:00 PM EDT Office Visit [facility] [address] [facility], [address] [place] [address] Oziel Carrington MD [address] [place] [address] 10/07/2024 2:30 PM EDT Office Visit 2nd [facility] [facility] 330 [facility] 2nd floor room 240 [place] [address] Felipe Bishop, CYNDY 330 [place] [address] 10/22/2024 11:00 AM EDT Appointment [facility] 330 [place] [address] [phone] John West MD [address] [place] [address] [place] [address] 11/03/2024 3:00 PM EDT Office Visit [facility] [address] [facility], [address] [place] [address] John West MD [address] [place] [address] documented as of this encounter Visit Diagnoses Not on filedocumented in this encounter Additional Health Concerns Infection Onset Date Last Indicated Resolved Time Highly Infectious Respirator y Virus (Rule Out) 12/13/2023 12/14/2023 12/14/2023 12:49 AM EDT Highly Infectious Respiratory Virus 06/04/202406/0406/16/2024 11:33 AM EST documented as of this encounter Care Teams Education Associate Relationship Specialty Start Date End Date Oziel Carrington MD [address] [place] [address] PCP - General Internal Medicine 10/19/22 documented as of this encounter
--- OUTSIDE RECORDS SUMMARY | 2024-06-26 20:14 | XMS_ITS | Encounter Summary ---
Author Organization [facility] Address [address] [facility] [address] Care Team Providers Care Supply Cataloguer Name Role Phone Oziel Carrington MD Primary Care Provider +1- [phone] Encounter Details Date Type Department Care Team ([facility] Contact Info) Description 08/30/2020 Billing Encounter [facility] Main Lab 330 [place] [address] Genevieve Cheung MD [address] [facility], [address] [place] [address] Social History Tobacco Use Types Packs/Day Years [...] [place] Contact Info) Description 06/16/2024 Procedure Pass [facility] MRI 330 [place] [address] [phone] 07/07/2024 1:30 PM EDT Appointment [facility] [address] [place] [address] [phone] 09/16/2024 2:00 PM EDT Office Visit [facility] [address] [facility], [address] [place] [address] Oziel Carrington MD [address] [place] [address] [place] [address] 10/07/2024 2:30 PM EDT Office Visit 2nd Floor [facility] [address] [facility] Nutrition 330 [facility] 2nd floor room 240 [place] [address] Felipe Bishop, CYNDY 330 [place] [address] 10/22/2024 11:00 AM EDT Appointment [facility] 330 [place] [address] [phone] John West MD [address] [place] [address] [place] [address] 11/03/2024 3:00 PM EDT Office Visit [facility] [address] [place] [address], [address] [place] [address] John West MD [address] [place] [address] documented as of this encounter Visit Diagnoses [...] documented as of this encounter Care Teams Supply Cataloguer Relationship Specialty Start Date End Date Oziel Carrington MD [address] [address] PCP - General Internal Medicine 10/19/22 documented as of this encounter
--- OUTSIDE RECORDS SUMMARY | 2024-06-26 20:14 | XMS_ITS | Encounter Summary ---
Author Organization [facility] Address [address] [facility] [place] [address] Care Team Providers Care Decatizer Name Role Phone Oziel Carrington MD Primary Care Provider +1- [phone] Reason for Referral * Diagnostic Imaging (Routine) - Closed Specialty Diagnoses / Procedures Referred By Contac t Referred To Contact Diagnoses Other chest pain Procedures Nuclear Medicine Myocardial Perfusion SPECT (Multi) aJsper Faria MD [address] [place] [address] Phone: tel: fax: Referral ID Status Reason Start Date Expiration Date Visits Re quested Visits Authorized [id number] Closed 01/27/2019 01/27/2020 4 4 Encounter Details Date Type Department Care Team (Late st Contact Info) Description 01/27/2019 Ancillary Orders [facility] [address] [place] [address], [address] [place] [address] Jasper Faria MD [address] [place] [address] Other chest pain Social History Tobacco Use [...] Contact Info) Description 06/16/2024 Procedure Pass [facility] 330 [place] [address] [phone] 07/07/2024 1:30 PM EDT Appointment [facility] [address] [place] [address] [phone] 09/16/2024 2:00 PM EDT Office Visit [facility] 5 [facility], [address] [place] [address] Oziel Carrington MD [address] [place] [address] [place] [address] 10/07/2024 2:30 PM EDT Office Visit 2nd [facility] [address] [facility] Nutrition 330 [facility] 2nd floor room 240 [place] [address] Felipe Bishop, CYNDY 330 [place] [address] 10/22/2024 11:00 AM EDT Appointment [facility] 330 [place] [address] [phone] John West MD [address] [place] [address] [place] [address] 11/03/2024 3:00 PM EDT Office Visit [facility] 5 [facility], [address] [place] [address] John West MD [address] [place] [address] [place] [address] documented as of this encounter Results * Nuclear Medicine Myocardial Perfusion SPECT (Multi) (01/27/2019 3:06 PM EDT) Anatomical Region Laterality Modality Chest, Vascular Nuclear Medicine 01/27/2019 10:0 0 AM EDT Impressions 01/27/2019 3:47 PM EDT 1. No evidence of focal jeopardized myocardium or infarct. 2. Normal left ventricular ejection fraction. 3. Hypokinetic septal wall of uncertain significance, not previously mentioned on echocardiogram or previous myocardial perfusion scan in 2012. I, the attending physician, attest that I have performed and/or supervised the resident for the hendrix and critical components of this procedure. I have personally reviewed the images pertinent to this examination and agree with the interpretation. Dictated: 01/27/2019 3:47 PM Report ID: [id number] Report signed in external system at 01/27/2019 15:47 Reported By: Juan An M.D. (resident) ([id number]) Signed By: Sae Steen M.D. (HEFA) Narrative 01/27/2019 3:47 PM EDT RESPONSIBLE MANAGER PERFORMANCE IMPROVEMENT: Sae Steen M.D. EXAMINATION: NM MYOCARDIAL PERFUSION SPECT (MULTI) CLINICAL INDICATION: Atypical chest pain. ??History of diabetes and hyperlipidemia. RADIOPHARMACEUTICAL: 10.4 mCi Technetium 99m - Myoview was administered intravenously at rest. 31.2 mCi Technetium 99m - Myoview was administered intravenously during stress. Total dose: 41.6 mCi TECHNIQUE: A 1 -day study was performed. ??The patient was injected with 0.4 mg IV of regadenoscan and then with the radiopharmaceutical. ??Multiple tomographic views of the heart were then obtained and compared with similar images obtained at rest. ??The Lexiscan and rest examinations were gated. The left ventricular ejection fraction and wall motion were assessed. COMPARISON: Previous transthoracic echocardiogram on 12/24/2011 and myocardial perfusion image study 04/08/2012. FINDINGS: No significant focal reversible perfusion. No fixed perfusion defect. ??At pharmacologic stress, the left ventricular ejection fraction is 68 %. ??There is hypokinesis of the septal wall. Procedure Note Sae Steen MD - 01/27/2019 RESPONSIBLE MANAGER PERFORMANCE IMPROVEMENT: Sae Steen M.D. EXAMINATION: NM MYOCARDIAL PERFUSION SPECT (MULTI) CLINICAL INDICATION: Atypical chest pain. History of diabetes and hyperlipidemia. RADIOPHARMACEUTICAL: 10.4 mCi Technetium 99m - Myoview was administered intravenously atrest. 31.2 mCi Technetium 99m - Myoview was administered intravenously duringstress. Total dose: 41.6 mCi TECHNIQUE: A 1 -day study was performed. The patient was injected with 0.4 mg IV ofregadenoscan and then with the radiopharmaceutical. Multiple tomographicviews of the heart were then obtained and compared with similar imagesobtained at rest. The Lexiscan and rest examinations were gated. The leftventricular ejection fraction and wall motion were assessed. COMPARISON: Previous transthoracic echocardiogram on 12/24/2011 and myocardialperfusion image study 04/08/2012. FINDINGS: No significant focal reversible perfusion. No fixed perfusion defect. Atpharmacologic stress, the left ventricular ejection fraction is 68 %.There is hypokinesis of the septal wall. IMPRESSION: 1. No evidence of focal jeopardized myocardium or infarct. 2. Normal left ventricular ejection fraction. 3. Hypokinetic septal wall of uncertain significance, not previouslymentioned on echocardiogram or previous myocardial perfusion scan [id number]. I, the attending physician, attest that I have performed and/or supervised the resident for the hendrix and critical components of this procedure. I have personally reviewed the images pertinent to this examination and agree with the interpretation. Dictated: 01/27/2019 3:47 PM Report ID: [id number] Report signed in external system at 01/27/2019 15:47 Reported By: Juan An M.D. (resident) ([id number]) Signed By: Sae Steen M.D. ([facility]) us Genevieve Cheung MD [facility] PROCEDURES Final Resul t documented in this encounter Visit Diagnoses Diagnosis Other chest pain Other chest pain documented in this encounter [...] documented as of this encounter Care Teams Decatizer Relationship Specialty Start Date End Date Oziel Carrington MD [address] [place] [address] PCP - General Internal Medicine 10/19/22 documented as of this encounter
--- OUTSIDE RECORDS SUMMARY | 2024-06-26 20:14 | XMS_ITS | Encounter Summary ---
Author Organization [facility] Address [address] [place] [address] Care Team Providers Care Lime Kiln Operator Name Role Phone Oziel Carrington MD Primary Care Provider +1- [phone] Oziel Carrington MD Primary Care Provider +1- [phone] Encounter Details Date Type Department Care Team (Late st Contact Info) Description 07/19/2023 Lab Requisition [facility] Orders Nita, Josefina C [address] [place] [address] Encounter for screening, unspecified Social History Tobacco [...] Description 07/10/2024 4:30 PM EDT Office Visit [facility] [address] [facility] 3rd [place] [address] Jim Christensen MD [address] [facility] [address] [place] [address] In Person with Physician 03/05/2025 3:30 PM EST Office Visit [facility] Optometry [facility] [address] [facility], 5th [place] [address] Samantha Flores OD [address] [place] [address] In Person with Integrity Manager documented as of this encounter Procedures Procedure Name Priority Date/Time Associated Diagnosis Comments CULTURE, FUNGAL, OTHER (SMEAR PER POLICY) Routine 07/23/2023 8:24 AM EDT Encounter for screening, unspecified CULTURE, ANAEROBIC & AEROBIC (INCL GRAM) Routine 07/23/2023 8:24 AM EDT Encounter for screening, unspecified LEGIONELLA URINARY ANTIGEN Routine 07/19/2023 11:10 AM EDT Encounter for screening, unspecified STREP PNEUMONIAE URINE ANTIGEN Routine 07/19/2023 11:10 AM EDT Encounter for screening, unspecified documented in this encounter Results * Culture, Fungal, Other (07/23/2023 8:24 AM EDT) Culture No fungus (yeast or mold) isolated after 28 days. TRINI 08/19/2023 12:06 PM EDT [facility] xOther PLEURAL FLUID SPECIMEN / Unknown 07/23/2023 8:24 AM EDT 07/23/2023 1:29 PM EDT Josefina Moya MICROBIOLOGY - GENERAL ORDERAB LES Final Result [facility] [address] [place] [address], * Culture, Aerobic & Anaerobic (Incl Gram) (07/23/2023 8:24 AM EDT) Culture No growth, No aerobes or anaerobes isolated TRINI 07/27/2023 6:53 AM EDT [facility] Smear,Gram Stain Few Neutrophils 07/27/2023 6:53 AM EDT [facility] Smear,Gram Stain No organisms seen 07/27/2023 6:53 AM EDT [facility] xOther PLEURAL FLUID SPECIMEN / Unknown 07/23/2023 8:24 AM EDT 07/23/2023 1:29 PM EDT Josefina Simmsick MICROBIOLOGY - GENERAL ORDERAB LES Final Result Performing Organization Address [facility] de Phone Number [facility] [address] [place] [address], [place] [phone] * Legionella Urinary Antigen (07/19/2023 11:10 AM EDT) Legionella pneumophila serogroup 1 antigen Negative Negative TRINI 07/19/2023 2:20 PM EDT [facility] Comment:Suggesting no recent or current infection. Infection due to Legionella cannot be ruled out since other serogroups and species may cause disease, antigen may not be present in urine in the early infection, and the level of antigen present in the urine maybe below the detection limit of the test Urine MID-STREAM URINE SPECIMEN / Unknown 07/19/2023 11:10 AM EDT 07/19/2023 1:07 PM EDT Josefina Simmsick MICROBIOLOGY - GENERAL ORDERAB LES Final Result Performing Organization Address [facility] de Phone Number [facility] [address] [place] [address], [place] [phone] * Strep Pneumoniae Urine Antigen (07/19/2023 11:10 AM EDT) Strep pneumo Urine Antigen Negative Negative TRINI 07/19/2023 2:20 PM EDT [facility] Comment:Suggesting no curren t or recent pneumococcal infection. Infection due to S. Pneumoniae can not be ruled out since the antigen present in the sample maybe below the detection limit of the test. Urine MID-STREAM URINE SPECIMEN / Unknown 07/19/2023 11:10 AM EDT 07/19/2023 1:07 PM EDT Josefina Simmsick MICROBIOLOGY - GENERAL ORDERAB LES Final Result Performing Organization Address [facility] de Phone Number [facility] [address] [place] [address], documented in this encounter Visit Diagnoses Diagnosis Encounter for screening, unspecified documented in this encounter Care Teams Lime Kiln Operator Relationship Specialty Start Date End Date Oziel Carrington MD PCP - General Internal Medicine 05/21/23 01/09/24 Oziel Carrington MD [address] [place] [address] PCP - General Internal Medicine 01/10/24 documented as of this encounter
--- OUTSIDE RECORDS SUMMARY | 2024-06-26 20:14 | XMS_ITS | Encounter Summary ---
Author Organization [facility] Address [address] [place] [address] Care Team Providers Care Roller Mill Operator Name Role Phone Genevieve Cheung MD Primary Care Provider [phone] Oziel Carrington MD Primary Care Provider [phone]- [phone] Oziel Carrington MD Primary Care Provider +1- [phone] Oziel Carrington MD Primary Care Provider +1- [phone] Encounter Details Date Type Department Care Team (Late st Contact Info) Description 05/20/2022 Lab [facility] Orders Roslyn Don MD 330 [place] [address] Social History Tobacco Use Types Packs/Day Years [...] Description 07/10/2024 4:30 PM EDT Office Visit [facility] Pain Medicine 200 [facility] 3rd [place] [address] Jim Christensen MD 1 [facility] [address] [place] [address] In Person with Physician 03/05/2025 3:30 PM EST Office Visit [facility] Optometry [facility] 98 [facility], 5th [place] [address] Samantha Flores, OD 330 [address] [place] [address] In Person with Anchor Operator documented as of this encounter Procedures Procedure Name Priority Date/Time Associated Diagnosis Comments CULTURE, SCREEN, STAPH AUREUS/MRSA Routine 05/20/2022 8:35 PM EST CULTURE, SCREEN, STAPH AUREUS/MRSA Routine 05/20/2022 8:35 PM EST CULTURE, AEROBIC, URINE STAT 05/20/2022 3:16 PM EST CULTURE, BLOOD STAT 05/20/2022 2:20 PM EST CULTURE, BLOOD STAT 05/20/2022 2:20 PM EST documented in this encounter Results * Culture, Screen, Staph aureus/MRSA (05/20/2022 8:35 PM EST) Culture No MRSA isolated TRINI 05/23/2022 1:41 PM EST [facility] xOther INGUINAL REGION STRUCTURE / Unknown 05/20/2022 8:35 PM EST 05/21/2022 2:21 AM EST John Paul Manzo MD MICROBIOLOGY - GENERAL ORD ERABLES Final Result [facility] [address] [place] [address], * Culture, Screen, Staph aureus/MRSA (05/20/2022 8:35 PM EST) Culture No MRSA isolated TRINI 05/23/2022 1:41 PM EST [facility] xOther BOTH ANTERIOR NARES / Unknown 05/20/2022 8:35 PM EST 05/21/2022 2:21 AM EST John Paul Manzo MD MICROBIOLOGY - GENERAL ORD ERABLES Final Result Performing Organization Address [facility]/ZIP Co de Phone Number [facility] [address] [place] [address], [place] [phone] * Culture, Aerobic, Urine (05/20/2022 3:16 PM EST) Culture No growth TRINI 05/21/2022 3:51 PM EST [facility] Urine MID-STREAM URINE SPECIMEN / Unknown 05/20/2022 3:16 PM EST 05/20/2022 8:01 PM EST us Roslyn Don MD MICROBIOLOGY - GENERAL ORDERABLE S Final Result Performing Organization Address [facility] de Phone Number [facility] [address] [place] [address], [place] [phone] * (ABNORMAL) Culture, Blood (05/20/2022 2:20 PM EST) Culture From Aerobic Bottle Staphylococcus simulans(A) TRINI 05/23/2022 7:37 AM EST [facility] Smear,Gram Stain From Aerobic Bottle Gram positive cocci in clusters(AA) 05/23/2022 7:37 AM EST [facility] Blood PERIPHERAL NERVOUS SYSTEM STRUCTURE / Unknown 05/20/2022 2:20 PM EST 05/20/2022 8:01 PM EST Narrative Organism Antibiotic Method Susceptibility Staphylococcus simulans - TRINI us Roslyn Don MD MICROBIOLOGY - GENERAL ORDERABLE S Final Result Performing Organization Address [facility]/ZIP Co de Phone Number [facility] [address] [place] [address], [place] [phone] * Culture, Blood (05/20/2022 2:20 PM EST) Culture No growth after 5 days TRIIN 05/25/2022 7:01 PM EST [facility] Blood PERIPHERAL NERVOUS SYSTEM STRUCTURE / Unknown 05/20/2022 2:20 PM EST 05/20/2022 6:23 PM EST us Roslyn Don MD MICROBIOLOGY - GENERAL ORDERABLE S Final Result [facility] [address] [place] [address], [place] [phone] documented in this encounter Visit Diagnoses Not on filedocumented in this encounter Care Teams Roller Mill Operator Relationship Specialty Start Date End Date Genevieve Cheung MD 5 [facility], [address] [place] [address] PCP - General 02/19/20 01/22/23 Oziel Carrington MD [address] [place] [address], [place] [address] PCP - General Internal Medicine 05/21/23 01/09/24 Oziel Carrington MD [address] [place] [address] PCP - General 01/23/23 05/20/23 Oziel Carrington MD 72 [place] [address] PCP - General Internal Medicine 01/10/24 documented as of this encounter
--- OUTSIDE RECORDS SUMMARY | 2024-06-26 20:14 | XMS_ITS | Encounter Summary ---
Author Organization [facility] Address 330 [facility] [place] [address] Care Team Providers Care Unix Developer Name Role Phone Oziel Carrington MD Primary Care Provider +1- [phone] Encounter Details Date Type Department Care Team ([facility] Contact Info) Description 11/10/2020 Billing Encounter [facility] Main Lab 330 [place] [address] Jyotsna Johnson MD 330 [place], [place] [phone] Social History Tobacco Use Types Packs/Day Years [...] have Coronavirus / COVID-19? No / Unsure 11/10/2020 4:40 PM EDT documented as of this encounter Plan of Treatment Upcoming Encounters Date Type Department Care Team ([facility] Contact Info) Description 06/16/2024 Procedure Pass [facility] MRI 330 [place] [address] [phone] 07/07/2024 1:30 PM EDT Appointment [facility] 330 [place] [address] [phone] 09/16/2024 2:00 PM EDT Office Visit [facility] 725 [facility], [address] [place] [address] Oziel Carrington MD [address] [place] [address] [place] [address] 10/07/2024 2:30 PM EDT Office Visit 2nd Floor [facility] [address] [facility] 330 [facility] 2nd floor room 240 [place] [address] Felipe Bishop, CYNDY 330 [place] [address] 10/22/2024 11:00 AM EDT Appointment [facility] 330 [place] [address] [phone] John West MD [address] [place] [address] 11/03/2024 3:00 PM EDT Office Visit [facility] [address] [place] [address], [address] [place] [address] John West MD [address] [place] [address] documented as of this encounter Visit Diagnoses [...] documented as of this encounter Care Teams Unix Developer Relationship Specialty Start Date End Date Oziel Carrington MD [address] [place] [address] PCP - General Internal Medicine 10/19/22 documented as of this encounter
--- OUTSIDE RECORDS SUMMARY | 2024-06-26 20:14 | XMS_ITS | Encounter Summary ---
Author Organization [facility] Address 330 [place] [address] Care Team Providers Care Environmental Coordinator Name Role Phone Oziel Carrington MD Primary Care Provider +1- [phone] Encounter Details Date Type Department Care Team (Late st Contact Info) Description 07/09/2023 Scan Document - View in Chart [facility] Department 330 [place] [phone] Provider, MD Boo [address] [place], [place] [address] Social History Tobacco Use Types Packs/Day Years Used Date Smoking Tobacco: Never Smokeless Tobacco: Never Alcohol Use Standard Drinks/Week Comments Never 0 (1 standard drink = 0.6 oz pur e alcohol) Depression Answer Date Recorded Feeling Down, Depressed, or Hopeless 1 10/19/2022 PHQ-9 Total Score 2 10/19/2022 [place] Scale Score: Not on file Sex and [...] st Contact Info) Description 06/16/2024 Procedure Pass [facility] 330 [place] [address] [phone] 07/07/2024 1:30 PM EDT Appointment [address] [address] [phone] 09/16/2024 2:00 PM EDT Office Visit [facility] 5 [facility], [address] [place] [address] Oziel Carrington MD [address] [place] [address] [place] [address] 10/07/2024 2:30 PM EDT Office Visit 2nd [facility] [address] [facility] 330 [facility] 2nd floor room 240 [place] [address] Felipe Bishop, RD 330 [place] [address] 10/22/2024 11:00 AM EDT Appointment [facility] 330 [place] [address] [phone] John West MD [address] [place] [address] 11/03/2024 3:00 PM EDT Office Visit [facility] [address] [place] [address], [address] [place] [address] John West MD [address] [place] [address] documented as of this encounter Visit Diagnoses [...] documented as of this encounter Care Teams Environmental Coordinator Relationship Specialty Start Date End Date Oziel Carrington MD [address] [place] [address] PCP - General Internal Medicine 10/19/22 documented as of this encounter
--- OUTSIDE RECORDS SUMMARY | 2024-06-26 20:14 | XMS_ITS | Encounter Summary ---
Author Organization [facility] Address 330 [facility] [place] [address] Care Team Providers Care 911 Emergency Dispatcher Name Role Phone Oziel Carrington MD Primary Care Provider +1- [phone] Encounter Details Date Type Department Care Team (Late st Contact Info) Description 11/27/2022 Billing Encounter [facility] Main Lab 330 [place] [address] Betty Emerson NP [address] [place] [address] Social History Tobacco Use Types Packs/Day Years Used Date Smoking Tobacco: Never Smokeless Tobacco: Never Alcohol Use Standard Drinks/Week Comments Never 0 (1 standard drink = 0.6 oz pur e alcohol) Depression Answer Date Recorded Feeling Down, Depressed, or Hopeless 1 10/19/2022 PHQ-9 Total Score 2 10/19/2022 [place] Scale Score: Not on file Sex and [...] st Contact Info) Description 06/16/2024 Procedure Pass [facility] 330 [place] [address] [phone] 07/07/2024 1:30 PM EDT Appointment [facility] 330 [place] [address] [phone] 09/16/2024 2:00 PM EDT Office Visit [facility] 725 [facility], [address] [place] [address] Oziel Carrington MD [address] [place] [address] [place] [address] 10/07/2024 2:30 PM EDT Office Visit 2nd Floor [facility] [address] [facility] 330 [facility] 2nd floor room 240 [place] [address] Felipe Bishop, CYNDY 330 [place] [address] 10/22/2024 11:00 AM EDT Appointment [facility] 330 [place] [address] [phone] John West MD [address] [place] [address] [place] [address] 11/03/2024 3:00 PM EDT Office Visit [facility] 725 [facility], [address] [place] [address] John West MD [address] [place] [address] [place] [address] documented as of this encounter Visit Diagnoses [...] documented as of this encounter Care Teams 911 Emergency Dispatcher Relationship Specialty Start Date End Date Oziel Carrington MD [address] [address] PCP - General Internal Medicine 10/19/22 documented as of this encounter
--- OUTSIDE RECORDS SUMMARY | 2024-06-26 20:14 | XMS_ITS | Encounter Summary ---
Author Organization [facility] Address 330 [facility] [place] [address] Care Team Providers Care Universal Banker Name Role Phone Oziel Carrington MD Primary Care Provider +1- [phone] Encounter Details Date Type Department Care Team ([facility] Contact Info) Description 10/04/2020 Billing Encounter [facility] Main Lab 330 [place] [address] Genevieve Cheung MD [address] [place] [address], [address] [place] [address] Social History Tobacco Use Types Packs/Day Years [...] have Coronavirus / COVID-19? No / Unsure 10/04/2020 4:44 PM EDT documented as of this encounter Plan of Treatment Upcoming Encounters Date Type Department Care Team ([facility] Contact Info) Description 06/16/2024 Procedure Pass [facility] MRI 330 [place] [address] [phone] 07/07/2024 1:30 PM EDT Appointment [facility] MRI 330 [place] [address] [phone] 09/16/2024 2:00 PM EDT Office Visit [facility] 725 [facility], [address] [place] [address] Oziel Carrington MD [address] [place] [address] [place] [address] 10/07/2024 2:30 PM EDT Office Visit 2nd Floor [facility] [address] [facility] 330 [facility] 2nd floor room 240 [place] [address] Felipe Bishop, CYNDY 330 [place] [address] 10/22/2024 11:00 AM EDT Appointment [facility] DXA 330 [place] [address] [phone] John West MD [address] [place] [address] 11/03/2024 3:00 PM EDT Office Visit [facility] [address] [place] [address], [address] [place] [address] John West MD [address] [place] [address] documented as of this encounter Visit Diagnoses [...] documented as of this encounter Care Teams Universal Banker Relationship Specialty Start Date End Date Oziel Carrington MD [address] [address] PCP - General Internal Medicine 10/19/22 documented as of this encounter
--- OUTSIDE RECORDS SUMMARY | 2024-06-26 20:14 | XMS_ITS | Encounter Summary ---
Author Organization [facility] Address 330 [facility] [place] [address] Care Team Providers Care Internship Name Role Phone Oziel Carrington MD Primary Care Provider +1- [phone] Reason for Visit * Reason Comments Med Refill Encounter Details Date Type Department Care Team (Late st Contact Info) Description 05/30/2020 Refill [facility] [address] [place] [address], [address] [place] [address] Genevieve Cheung MD [address] [place] [address], [address] [place] [address] Social History Tobacco Use Types Packs/Day Years [...] have Coronavirus / COVID-19? No / Unsure 05/26/2020 3:12 PM EST documented as of this encounter Miscellaneous Notes * Telephone Encounter - Courtney Woodard [place] - 05/31/2020 10:19 AM EST Last tele visit 05/04/20 documented in this encounter Plan of Treatment Upcoming Encounters Date Type Department Care Team (Late st Contact Info) Description 06/16/2024 Procedure Pass [facility] 330 [place] [address] [phone] 07/07/2024 1:30 PM EDT Appointment [facility] 330 [place] [address] [phone] 09/16/2024 2:00 PM EDT Office Visit [facility] [address] [place] [address], [address] [place] [address] Oziel Carrington MD [address] [place] [address] [place] [address] 10/07/2024 2:30 PM EDT Office Visit 2nd [facility] [facility] 330 [facility] 2nd floor room 240 [place] [address] Felipe Bishop, CYNDY 330 [place] [address] 10/22/2024 11:00 AM EDT Appointment [facility] 330 [place] [address] [phone] John West MD [address] [place] [address] [place] [address] 11/03/2024 3:00 PM EDT Office Visit [facility] 5 [facility], [address] [place] [address] John West MD [address] [place] [address] [place] [address] documented as of this encounter Visit Diagnoses [...] documented as of this encounter Care Teams Internship Relationship Specialty Start Date End Date Oziel Carrington MD 5 [place] [address] PCP - General Internal Medicine 10/19/22 documented as of this encounter
--- OUTSIDE RECORDS SUMMARY | 2024-06-26 20:14 | XMS_ITS | Encounter Summary ---
Author Organization [facility] Address 330 [facility] [place] [address] Care Team Providers Care Hat Checker Name Role Phone Oziel Carrington MD Primary Care Provider +1- [phone] Encounter Details Date Type Department Care Team ([facility] Contact Info) Description 07/07/2020 Billing Encounter [facility] Main Lab 330 [place] [address] Genevieve Cheung MD [address] [place] [address], [address] [place] [address] Social History Tobacco Use Types Packs/Day Years [...] have Coronavirus / COVID-19? No / Unsure 07/07/2020 4:01 PM EDT documented as of this encounter Plan of Treatment Upcoming Encounters Date Type Department Care Team ([facility] Contact Info) Description 06/16/2024 Procedure Pass [facility] MRI 330 [place] [address] [phone] 07/07/2024 1:30 PM EDT Appointment [facility] MRI 330 [place] [address] [phone] 09/16/2024 2:00 PM EDT Office Visit [facility] 725 [facility], [address] [place] [address] Oziel Carrington MD [address] [place] [address] [place] [address] 10/07/2024 2:30 PM EDT Office Visit 2nd Floor [facility] [address]240 [facility] 330 [facility] 2nd floor room 240 [place] [address] Felipe Bishop, CYNDY 330 [place] [address] 10/22/2024 11:00 AM EDT Appointment [facility] DXA 330 [place] [address] [phone] John West MD [address] [place] [address] 11/03/2024 3:00 PM EDT Office Visit [facility] [address] [place] [address], [address] [place] [address] John West MD [address] [place] [address] documented as of this encounter Visit Diagnoses [...] documented as of this encounter Care Teams Hat Checker Relationship Specialty Start Date End Date Oziel Carrington MD [address] [address] PCP - General Internal Medicine 10/19/22 documented as of this encounter
--- OUTSIDE RECORDS SUMMARY | 2024-06-26 20:14 | XMS_ITS | Encounter Summary ---
Author Organization [facility] Address [address] [place] [address] Care Team Providers Care Curator Herbarium Name Role Phone Genevieve Cheung MD Primary Care Provider Oziel Carrington MD Primary Care Provider +1- [phone] Oziel Carrington MD Primary Care Provider +1- [phone] Oziel Carrington MD Primary Care Provider +1- [phone] Encounter Details Date Type Department Care Team (Late st Contact Info) Description 05/21/2022 Lab [facility] Orders López Cruz 330 [place] [address] Social History Tobacco Use Types Packs/Day Years [...] Description 07/10/2024 4:30 PM EDT Office Visit [facility] Pain Medicine 200 [facility] 3rd [place] [address] Jim Christensen MD 1 [facility] [address] [place] [address] In Person with Physician 03/05/2025 3:30 PM EST Office Visit [facility] Optometry [facility] 98 [facility], 5th [place] [address] Samantha Flores, OD 330 [facility] [address] [place] [address] In Person with Commercial Green Retrofit Architect documented as of this encounter Procedures Procedure Name Priority Date/Time Associated Diagnosis Comments CULTURE, BLOOD Routine 05/21/2022 10:36 AM EST documented in this encounter Results * Culture, Blood (05/21/2022 10:36 AM EST) Culture No growth after 5 days TRINI 05/26/2022 2:02 PM EST [facility] Blood PERIPHERAL NERVOUS SYSTEM STRUCTURE / Unknown 05/21/2022 10:36 AM EST 05/21/2022 1:14 PM EST López Cruz MICROBIOLOGY - GENERAL ORDERABLE S Final Result Performing Organization Address City/State/RUST Co de Phone Number [facility] [address] [place] [address], documented in this encounter Visit Diagnoses Not on filedocumented in this encounter Care Teams Curator Herbarium Relationship Specialty Start Date End Date Genevieve Cheung MD 5 [facility], [address] [place] [address] PCP - General 02/19/20 01/22/23 Oziel Carrington MD 5 [facility], [address] [place] [address] PCP - General Internal Medicine 05/21/23 01/09/24 Oziel Carrington MD [address] [place] [address] PCP - General 01/23/23 05/20/23 Oziel Carrington MD [address] [place] [address] PCP - General Internal Medicine 01/10/24 documented as of this encounter
--- OUTSIDE RECORDS SUMMARY | 2024-06-26 20:14 | XMS_ITS | Encounter Summary ---
Author Organization [facility] Rico Manuel [facility] Address [address] [place] [address] Care Team Providers Care Corn Cutter Name Role Phone Oziel Carrington MD Primary Care Provider +1- [phone] Oziel Carrington MD Primary Care Provider +1- [phone] Oziel Carrington MD Primary Care Provider +1- [phone] Encounter Details Date Type Department Care Team (Late Contact Info) Description 05/03/2023 Lab [facility] Orders Liang Meeks MD 330 [place] [address] Social History Tobacco Use Types Packs/Day Years [...] Description 07/10/2024 4:30 PM EDT Office Visit [facility] Pain Medicine 200 [facility] 3rd [place] [address] Jim Christensen MD 1 [facility] 105 [place] [address] In Person with Physician 03/05/2025 3:30 PM EST Office Visit [facility] Optometry [address], [address]th [place] [address] Samantha Flores, OD 330 [address] 5th [place] [address] In Person with Hat Block Maker documented as of this encounter Procedures Procedure Name Priority Date/Time Associated Diagnosis Comments LEGIONELLA URINARY ANTIGEN Routine 05/03/2023 5:48 AM EST STREP PNEUMONIAE URINE ANTIGEN Routine 05/03/2023 5:48 AM EST documented in this encounter Results * Legionella Urinary Antigen (05/03/2023 5:48 AM EST) Legionella pneumophila serogroup 1 antigen Negative Negative TRINI 05/03/2023 4:05 PM EST [facility] Comment:Suggesting no recent or current infection. Infection due to Legionella cannot be ruled out since other serogroups and species may cause disease, antigen may not be present in urine in the early infection, and the level of antigen present in the urine maybe below the detection limit of the test Urine MID-STREAM URINE SPECIMEN / Unknown 05/03/2023 5:48 AM EST 05/03/2023 9:47 AM EST us Liang Meeks MD MICROBIOLOGY - GENERAL ORDERA BLES Final Result [facility] [address] [place] [address], * Strep Pneumoniae Urine Antigen (05/03/2023 5:48 AM EST) Strep pneumo Urine Antigen Negative Negative TRINI 05/03/2023 4:05 PM EST [facility] Comment:Suggesting no curren t or recent pneumococcal infection. Infection due to S. Pneumoniae can not be ruled out since the antigen present in the sample maybe below the detection limit of the test. Urine MID-STREAM URINE SPECIMEN / Unknown 05/03/2023 5:48 AM EST 05/03/2023 9:47 AM EST us Liang Meeks MD MICROBIOLOGY - GENERAL ORDERA BLES Final Result [facility] [address] [place] [address], documented in this encounter Visit Diagnoses Not on filedocumented in this encounter Care Teams Corn Cutter Relationship Specialty Start Date End Date Oziel Carrington MD PCP - General Internal Medicine 05/21/23 01/09/24 Oziel Carrington MD [address] [facility] [address] PCP - General 01/23/23 05/20/23 Oziel Carrington MD 725 [facility] [place] [address] PCP - General Internal Medicine 01/10/24 documented as of this encounter
--- OUTSIDE RECORDS SUMMARY | 2024-06-26 20:14 | XMS_ITS | Encounter Summary ---
Author Organization [facility] Address 330 [facility] [place] [address] Care Team Providers Care Auto Battery Builder Name Role Phone Oziel Carrington MD Primary Care Provider [phone]- [phone] Reason for Referral * Diagnostic Imaging (Routine) - Closed Specialty Diagnoses / Procedures Referred By Contac t Referred To Contact Diagnoses Other chest pain Procedures Nuclear Medicine Myocardial Perfusion SPECT (Multi) Jasper Faria MD 330 [place] [address] Phone: tel: fax: Referral ID Status Reason Start Date Expiration Date Visits Re quested Visits Authorized [id number] Closed 12/31/2018 12/31/2019 4 4 Encounter Details Date Type Department Care Team (Late st Contact Info) Description 12/31/2018 Ancillary Orders [facility] [address] [place] [address], [address] [place] [address] Jasper Faira MD [address] [place] [address] Other chest pain Social History Tobacco Use [...] st Contact Info) Description 06/16/2024 Procedure Pass [facility] 330 [place] [address] [phone] 07/07/2024 1:30 PM EDT Appointment [facility] 330 [place] [address] [phone] 09/16/2024 2:00 PM EDT Office Visit [facility] [address] [place] [address], [address] [place] [address] Oziel Carrington MD [address] [place] [address] [place] [address] 10/07/2024 2:30 PM EDT Office Visit 2nd [facility] [address]240 [facility] 330 [facility] 2nd floor room 240 [place] [address] Felipe Bishop, CYNDY 330 [place] [address] 10/22/2024 11:00 AM EDT Appointment [facility] 330 [place] [address] [phone] John West MD [address] [place] [address] [place] [address] 11/03/2024 3:00 PM EDT Office Visit [facility] [address] [place] [address], [address] [place] [address] John West MD [address] [place] [address] Scheduled Orders Name Type Priority Associated Diagnoses Orde r Schedule Nuclear Medicine Myocardial Perfusion SPECT (Multi) Imaging Routine Other chest pain Expected: 12/31/2018, Expires: 01/01/2020 documented as of this encounter Visit Diagnoses [...] documented as of this encounter Care Teams Auto Battery Builder Relationship Specialty Start Date End Date Oziel Carrington MD [address] [place], [place] [phone] PCP - General Internal Medicine 10/19/22 documented as of this encounter
--- OUTSIDE RECORDS SUMMARY | 2024-06-26 20:14 | XMS_ITS | Encounter Summary ---
Author Organization [facility] Address [address] [place] [address] Care Team Providers Care [id number] Armor Crewman Name Role Phone Genevieve Cheung MD Primary Care Provider [phone] Oziel Carrington MD Primary Care Provider [phone]- [phone] Oziel Carrington MD Primary Care Provider [phone]- [phone] Oziel Carrington MD Primary Care Provider [phone]- [phone] Encounter Details Date Type Department Care Team (Late st Contact Info) Description 09/07/2021 Lab [facility] Orders Genevieve Cheung MD [address], [address] [place] [address] Acute pharyngitis, unspecified Social History Tobacco Use Types Packs/Day [...] Description 07/10/2024 4:30 PM EDT Office Visit [facility] Pain Medicine 200 [facility] 3rd [place] [address] Jim Christensen MD [address] [place] [address] [address] [place] [address] In Person with Physician 03/05/2025 3:30 PM EST Office Visit [facility] Opt[facility] 98 [facility], 5th [place] [address] Samantha Flores OD 330 [facility] 5th [place] [address] In Person with Stock Supervisor documented as of this encounter Procedures Procedure Name Priority Date/Time Associated Diagnosis Comments CULTURE, AEROBIC, STREP A, THROAT Routine 09/07/2021 12:05 PM EDT Acute pharyngitis, unspecified documented in this encounter Results * Culture, Aerobic, Strep A, throat (09/07/2021 12:05 PM EDT) Culture No Beta hemolytic Streptococcus group A, C or G TRINI 09/09/2021 3:01 PM EDT [facility] xThroat STRUCTURE OF ANTERIOR PORTION OF NECK / Unknown 09/07/2021 12:05 PM EDT 09/07/2021 9:23 PM EDT us Genevieve Cheung MD MICROBIOLOGY - GENERAL ORDERAB LES Final Result Performing Organization Address City/State/[facility] Co de Phone Number [facility] [phone] [place] [address], documented in this encounter Visit Diagnoses Diagnosis Acute pharyngitis, unspecified documented in this encounter Care Teams [id number] Armor Crewman Relationship Specialty Start Date End Date Genevieve Cheung MD [address] [place] [address], [place] [address] PCP - General 02/19/20 01/22/23 Oziel Carrington MD [address] [place] [address], [place] [address] PCP - General Internal Medicine 05/21/23 01/09/24 Oziel Carrington MD 725 [place] [address] PCP - General 01/23/23 05/20/23 Oziel Carrington MD 725 [place] [address] PCP - General Internal Medicine 01/10/24 documented as of this encounter
--- OUTSIDE RECORDS SUMMARY | 2024-06-26 20:14 | XMS_ITS | Encounter Summary ---
Author Organization [facility] Address 330 [facility] [place] [address] Care Team Providers Care Executive Team Leader Name Role Phone Oziel Carrington MD Primary Care Provider [phone]- [phone] Encounter Details Date Type Department Care Team (Late st Contact Info) Description 07/22/2023 Procedure Pass [facility] 330 [place] [phone] Social History Tobacco Use Types Packs/Day Years Used Date Smoking Tobacco: Never Smokeless Tobacco: Never Alcohol Use Standard Drinks/Week Comments Never 0 (1 standard drink = 0.6 oz pur e alcohol) Depression Answer Date Recorded Feeling Down, Depressed, or Hopeless 1 10/19/2022 PHQ-9 Total Score 2 10/19/2022 [place] Scale Score: Not on file Sex and [...] Contact Info) Description 06/16/2024 Procedure Pass [facility] 330 [place] [address] [phone] 07/07/2024 1:30 PM EDT Appointment [facility] 330 [place] [address] [phone] 09/16/2024 2:00 PM EDT Office Visit [facility] 725 [facility], [address] [place] [address] Oziel Carrington MD [address] [place] [address] [place] [address] 10/07/2024 2:30 PM EDT Office Visit 2nd [facility] [address] [facility] [address] floor room 240 [place] [address] Felipe Bishop, CYNDY 330 [place] [address] 10/22/2024 11:00 AM EDT Appointment [facility] DXA 330 [place] [address] [phone] John West MD [address] [place] [address] 11/03/2024 3:00 PM EDT Office Visit [facility] [address] [place] [address], [address] [place] [address] John West MD [address] [place] [address] documented as of this encounter Visit Diagnoses [...] documented as of this encounter Care Teams Executive Team Leader Relationship Specialty Start Date End Date Oziel Carrington MD [address] [address] PCP - General Internal Medicine 10/19/22 documented as of this encounter
--- OUTSIDE RECORDS SUMMARY | 2024-06-26 20:14 | XMS_ITS | Encounter Summary ---
Author Organization [facility] Address 330 [facility] [place] [address] Care Team Providers Care Financial Planning Analyst Name Role Phone Oziel Carrington MD Primary Care Provider [phone]- [phone] Encounter Details Date Type Department Care Team (Late st Contact Info) Description 10/12/2021 Billing Encounter [facility] Main Lab 330 [place] [phone] Genevieve Cheung MD 725 [facility], [address] [place] [address] Social History Tobacco Use Types Packs/Day Years [...] suspected to have Coronavirus/COVID-19? No / Unsure 10/12/2021 10:00 AM EDT documented as of this encounter [...] st Contact Info) Description 06/16/2024 Procedure Pass [facility] 330 [place] [address] [phone] 07/07/2024 1:30 PM EDT Appointment [facility] 330 [place] [address] [phone] 09/16/2024 2:00 PM EDT Office Visit [facility] 725 [facility], [address] [place] [address] Oziel Carrington MD [address] [place] [address] [place] [address] 10/07/2024 2:30 PM EDT Office Visit 2nd [facility] [facility] Nutrition 330 [facility] 2nd floor room 240 [place] [address] Felipe Bishop, CYNDY 330 [place] [address] 10/22/2024 11:00 AM EDT Appointment [facility] DXA 330 [place] [address] [phone] John West MD [address] [place] [address] 11/03/2024 3:00 PM EDT Office Visit [facility] [address] [place] [address], [address] [place] [address] John West MD [address] [place] [address] documented as of this encounter Visit Diagnoses [...] documented as of this encounter Care Teams Financial Planning Analyst Relationship Specialty Start Date End Date Oziel Carrington MD [address] [place] [address] PCP - General Internal Medicine 10/19/22 documented as of this encounter
--- OUTSIDE RECORDS SUMMARY | 2024-06-26 20:14 | XMS_ITS | Encounter Summary ---
Author Organization [facility] Address 330 [facility] [place] [address] Care Team Providers Care Straw Hat Presser Name Role Phone Oziel Carrington MD Primary Care Provider [phone]- [phone] Encounter Details Date Type Department Care Team ([facility] Contact Info) Description 08/24/2020 Billing Encounter [facility] Main Lab 330 [place] [address] Shanti Rankin MD 725 [facility], [address] [place] [address] Social History Tobacco Use Types Packs/Day Years [...] have Coronavirus / COVID-19? No / Unsure 08/24/2020 2:33 PM EDT documented as of this encounter Plan of Treatment Upcoming Encounters Date Type Department Care Team ([facility] Contact Info) Description 06/16/2024 Procedure Pass [facility] MRI 330 [place] [address] [phone] 07/07/2024 1:30 PM EDT Appointment [facility] 330 [place] [address] [phone] 09/16/2024 2:00 PM EDT Office Visit [facility] 725 [facility], [address] [place] [address] Oziel Carrington MD [address] [place] [address] [place] [address] 10/07/2024 2:30 PM EDT Office Visit 2nd Floor [facility] [address]240 [facility] Nutrition 330 [facility] 2nd floor room 240 [place] [address] Felipe Bishop, CYNDY 330 [place] [address] 10/22/2024 11:00 AM EDT Appointment [facility] 330 [place] [address] [phone] John West MD [address] [place] [address] [place] [address] 11/03/2024 3:00 PM EDT Office Visit [facility] [address] [place] [address], [address] [place] [address] John West MD [address] [place] [address] documented as of this encounter Visit Diagnoses [...] documented as of this encounter Care Teams Straw Hat Presser Relationship Specialty Start Date End Date Oziel Carrington MD [address] [address] PCP - General Internal Medicine 10/19/22 documented as of this encounter
--- OUTSIDE RECORDS SUMMARY | 2024-06-26 20:14 | XMS_ITS | Encounter Summary ---
Author Organization [facility] Address [address] [place] [address] Care Team Providers Care Wind Farm Support Specialist Name Role Phone Genevieve Cheung MD Primary Care Provider [phone] Oziel Carrington MD Primary Care Provider [phone]- [phone] Oziel Carrington MD Primary Care Provider +1- [phone] Oziel Carrington MD Primary Care Provider +1- [phone] Encounter Details Date Type Department Care Team (Late st Contact Info) Description 11/23/2022 Lab [facility] Orders Betty Emerson, CAD PROGRAMMER [address] [place] [address] Disorder of kidney and ureter, unspecified Social History Tobacco Use Types Packs/Day [...] Description 07/10/2024 4:30 PM EDT Office Visit [facility] Pain Medicine 200 [facility] 3rd [place] [address] Jim Christensen MD [address] [place] [address] 105 [place] [address] In Person with Physician 03/05/2025 3:30 PM EST Office Visit [facility] Optometry [facility] 98 [facility], 5th [place] [address] Samantha Flores OD 330 [place] [facility] 5th [place] [address] In Person with Emergency Detail Driver documented as of this encounter Procedures Procedure Name Priority Date/Time Associated Diagnosis Comments CULTURE, AEROBIC, URINE Routine 11/23/2022 6:42 PM EDT Disorder of kidney and ureter, unspecified documented in this encounter Results * (ABNORMAL) Culture, Aerobic, Urine (11/23/2022 6:42 PM EDT) Pathologist [facility] Culture >100,000 CFU/ML Escherichia coli(A) TRINI 11/26/2022 6:39 AM EDT [facility] Culture 10,000-50,000 CFU/ML Proteus mirabilis(A) TRINI 11/26/2022 6:39 AM EDT [facility] Urine MID-STREAM URINE SPECIMEN / Unknown 11/23/2022 6:42 PM EDT 11/23/2022 9:49 PM EDT Narrative Organism Antibiotic Method Susceptibility Escherichia coli - TRINI Escherichia coli Ampicillin TRINI >=32 ug/ml: Resistant Escherichia coli Ampicillin + Sulbactam TRINI 4 ug/ml: Sensitive Escherichia coli Cefazolin TRINI <=4 ug/ml: Sensitive Comment:Breakpoints when cefazolin is used for the therapy of uncomplicated UTI's due to E. coli, K. pneumoniae, and P. mirabilis. Escherichia coli Ciprofloxacin TRINI 2 ug/ml: Resistant Escherichia coli Meropenem TRINI <=0.25 ug/ml: Sensitive Escherichia coli Gentamicin TRINI <=1 ug/ml: Sensitive Escherichia coli Nitrofurantoin TRINI >=512 ug/ml: Resistant Escherichia coli Trimethoprim + Sulfamethoxazole TRINI >=320 ug/ml: Resistant Escherichia coli Ceftazidime TRINI <=1 ug/ml: Sensitive Escherichia coli Ceftriaxone TRINI <=1 ug/ml: Sensitive Escherichia coli Piperacillin + Tazobactam TRINI <=4 ug/ml: Sensitive Escherichia coli Levofloxacin TRINI 4 ug/ml: Resistant Proteus mirabilis - TRINI Proteus mirabilis Ampicillin TRINI <=2 ug/ml: Sensitive Proteus mirabilis Ampicillin + Sulbactam TRINI <=2 ug/ml: Sensitive Proteus mirabilis Cefazolin TRINI <=4 ug/ml: Sensitive Comment:Breakpoints when cefazolin is used for the therapy of uncomplicated UTI's due to E. coli, K. pneumoniae, and P. mirabilis. Proteus mirabilis Ciprofloxacin TRINI <=0.25 ug/ml: Sensitive Proteus mirabilis Meropenem TRINI <=0.25 ug/ml: Sensitive Proteus mirabilis Gentamicin TRINI <=1 ug/ml: Sensitive Proteus mirabilis Nitrofurantoin TRINI 128 ug/ml: Resistant Proteus mirabilis Trimethoprim + Sulfamethoxazole TRINI <=20 ug/ml: Sensitive Proteus mirabilis Ceftazidime TRINI <=1 ug/ml: Sensitive Proteus mirabilis Ceftriaxone TRINI <=1 ug/ml: Sensitive Proteus mirabilis Piperacillin + Tazobactam TRINI <=4 ug/ml: Sensitive Proteus mirabilis Levofloxacin TRINI <=0.12 ug/ml: Sensitive us Betty Emerson CAD PROGRAMMER MICROBIOLOGY - GENERAL ORDERABLE S Final Result Performing Organization Address City/State/[facility] Co de Phone Number [facility] [phone] [place] [address], documented in this encounter Visit Diagnoses Diagnosis Disorder of kidney and ureter, unspecified documented in this encounter Care Teams Wind Farm Support Specialist Relationship Specialty Start Date End Date Genevieve Cheung MD [address] [place] [address] PCP - General 02/19/20 01/22/23 Oziel Carrington MD [address] [place] [address] PCP - General Internal Medicine 05/21/23 01/09/24 Oziel Carrington MD [address] [place] [address] PCP - General 01/23/23 05/20/23 Oziel Carrington MD [address] [place] [address] PCP - General Internal Medicine 01/10/24 documented as of this encounter
--- OUTSIDE RECORDS SUMMARY | 2024-06-26 20:14 | XMS_ITS | Encounter Summary ---
Author Organization [facility] Address 330 [facility] [place] [address] Care Team Providers Care Cryptanalyst Name Role Phone Oziel Carrington MD Primary Care Provider [phone]- [phone] Encounter Details Date Type Department Care Team (Late Contact Info) Description 12/30/2018 Billing Encounter [facility] Main Lab 330 [place] [address] Genevieve Cheung MD 725 [facility], [address] [place] [address] Social History Tobacco Use Types Packs/Day Years [...] (Late Contact Info) Description 06/16/2024 Procedure Pass [facility] MRI 330 [place] [address] [phone] 07/07/2024 1:30 PM EDT Appointment [facility] MRI 330 [place] [address] [phone] 09/16/2024 2:00 PM EDT Office Visit [facility] 725 [facility], [address] [place] [address] Oziel Carrington MD [address] [place] [address] [place] [address] 10/07/2024 2:30 PM EDT Office Visit 2nd Floor [facility]240 [facility] 330 [facility] 2nd floor room 240 [place] [address] Felipe Bishop, CYNDY 330 [place] [address] 10/22/2024 11:00 AM EDT Appointment [facility] 330 [place] [address] [phone] John West MD [address] [place] [address] [place] [address] 11/03/2024 3:00 PM EDT Office Visit [facility] 725 [facility], [address] [place] [address] John West MD [address] [place] [address] [place] [address] documented as of this encounter Visit Diagnoses [...] documented as of this encounter Care Teams Cryptanalyst Relationship Specialty Start Date End Date Oziel Carrington MD [address] [place] [address] PCP - General Internal Medicine 10/19/22 documented as of this encounter
--- OUTSIDE RECORDS SUMMARY | 2024-06-26 20:14 | XMS_ITS | Encounter Summary ---
Author Organization [facility] Address 330 [facility] [place] [address] Care Team Providers Care Model And Dye Person Name Role Phone Oziel Carrington MD Primary Care Provider +1- [phone] Reason for Referral * Diagnostic Imaging (Routine) - Pending Review Specialty Diagnoses / Procedures Referred By Wesley nunez Referred To Contact Radiology Diagnoses Left shoulder pain, unspecified chronicity Procedures X-RAY SHOULDER 2+ VIEWS LEFT Javier Breaux MD [address] [place] [address] Phone: tel: fax: Referral ID Status Reason Start Date Expiration Date V isits Requested Visits Authorized [id number] Pending Review 12/30/2023 12/29/2024 1 1 Encounter Details Date Type Department Care Team (Late st Contact Info) Description 12/30/2023 Ancillary Orders [facility] X-ray 330 [place] [address] Javier Breaux MD [address] [place] [address] Left shoulder pain, unspecified chronicity (Primary Dx) Social History Tobacco Use Types [...] 1 10/19/2022 PHQ-9 Total Score 2 10/19/2022 [place] Scale Score: Not on file Sex and [...] st Contact Info) Description 06/16/2024 Procedure Pass [facility] MRI 330 [place] [address] [phone] 07/07/2024 1:30 PM EDT Appointment [facility] 330 [place] [address] [phone] 09/16/2024 2:00 PM EDT Office Visit [facility] [address] [place] [address], [address] [place] [address] Oziel Carrington MD [address] [place] [address] 10/07/2024 2:30 PM EDT Office Visit 2nd [facility] [address]240 [facility] Nutrition 330 [facility] 2nd floor room 240 [place] [address] Felipe Bishop, CYNDY 330 [place] [address] 10/22/2024 11:00 AM EDT Appointment [facility]XA 330 [place] [address] [phone] John West MD [address] [place] [address] [place] [address] 11/03/2024 3:00 PM EDT Office Visit [facility] [address] [place] [address], [address] [place] [address] John West MD [address] [place] [address] [place] [address] documented as of this encounter Results * X-RAY SHOULDER 2+ VIEWS LEFT (12/31/2023 11:57 AM EDT) Anatomical Region Laterality Modality Shoulder Left Digital Radiogra phy 12/31/2023 11:4 5 AM EDT Impressions 12/31/2023 12:25 PM EDT Moderate left shoulder osteoarthritis. Dictated: 12/31/2023 12:25 PM Report ID: [id number] Exam performed at [facility]. Report signed in external system at [facility] on 12/31/2023 12:25 Reported By: Sae Steen M.D. ([facility]) Signed By: Sae Steen M.D. ([facility]) Narrative 12/31/2023 12:25 PM EDT RESPONSIBLE WATER RECLAMATION SYSTEMS OPERATOR: Sae Steen M.D. EXAMINATION: XR SHOULDER 2+ VW LEFT CLINICAL INDICATION: Left shoulder pain. TECHNIQUE: Three views of the left shoulder. COMPARISON: 08/02/2022 FINDINGS: There is osteoarthritis of the glenohumeral joint with moderate joint space narrowing and subchondral sclerosis. ??The acromioclavicular joint is normal in alignment. ??The remainder of the imaged bones and soft tissues are unremarkable. Procedure Note Sae Steen MD - 12/31/2023 RESPONSIBLE WATER RECLAMATION SYSTEMS OPERATOR: Sae Steen M.D. EXAMINATION: XR SHOULDER 2+ VW LEFT CLINICAL INDICATION: Left shoulder pain. TECHNIQUE: Three views of the left shoulder. COMPARISON: 08/02/2022 FINDINGS: There is osteoarthritis of the glenohumeral joint with moderate jointspace narrowing and subchondral sclerosis. The acromioclavicular joint isnormal in alignment. The remainder of the imaged bones and soft tissuesare unremarkable. IMPRESSION: Moderate left shoulder osteoarthritis. Dictated: 12/31/2023 12:25 PM Report ID: [id number] Exam performed at [facility]. Report signed in external system at [facility] on 2:25 Reported By: Sae Steen M.D. ([facility]) Signed By: Sae Steen M.D. ([facility]) Javier Breaux MD IMG XR PROCEDURES Final Result documented in this encounter Visit Diagnoses Diagnosis Left shoulder pain, unspecified chronicity- Primary Left shoulder pain, unspecified chronicity documented in this encounter Additional Health Concerns Infection Onset Date Last Indicated Resolved Time Highly Infectious Respiratory Virus 06/04/202406/0406/16/2024 11:33 AM EST documented as of this encounter Care Teams Model And Dye Person Relationship Specialty Start Date End Date Oziel Carrington MD 5 [place] [address] PCP - General Internal Medicine 10/19/22 documented as of this encounter
--- OUTSIDE RECORDS SUMMARY | 2024-06-26 20:14 | XMS_ITS | Encounter Summary ---
Author Organization Reyna Jackson [facility] Address [address] [place] [id number] Care Team Providers Care Water Manager Name Role Phone Oziel Carrington MD Primary Care Provider [phone]- [phone] Oziel Carrington MD Primary Care Provider +1- [phone] Encounter Details Date Type Department Care Team (Late st Contact Info) Description 08/05/2023 Lab Requisition [facility] Orders Oziel Carrington MD [address] [place] [address] Encounter for screening, unspecified Social History Tobacco [...] Description 07/10/2024 4:30 PM EDT Office Visit [facility] Pain Medicine [address] [facility] 3rd [place] [address] Jim Christensen MD [address] [address] In Person with Physician 03/05/2025 3:30 PM EST Office Visit [facility] Optometry [facility] [place] [address] [facility], 5th [place] [address] Samantha Flores, OD [address] 5th [place] [address] In Person with Customer Support Representative documented as of this encounter Procedures Procedure Name Priority Date/Time Associated Diagnosis Comments CBC AND DIFFERENTIAL Routine 08/05/2023 4:04 PM EDT Encounter for screening, unspecified [ICD-10-CM] CBC AND DIFFERENTIAL Routine 08/05/2023 4:04 PM EDT Encounter for screening, unspecified [ICD-10-CM] HEMOGLOBIN A1C Routine 08/05/2023 4:04 PM EDT Encounter for screening, unspecified COMPREHENSIVE METABOLIC PANEL Routine 08/05/2023 4:04 PM EDT Encounter for screening, unspecified documented in this encounter Results * (ABNORMAL) CBC and Differential (08/05/2023 4:04 PM EDT) Pathologist [facility] WBC 4.02 4.00 - 11.00 K/uL 08/06/2023 10:13 AM EDT [facility] RBC 2.84(L) 4.10 - 5.60 M/uL 08/06/2023 10:13 AM EDT [facility] Hemoglobin 9.4(L) 12.7 - 16.7 g/dL 08/06/2023 10:13 AM EDT [facility] Hematocrit 29.8(L) 38.0 - 50.0 % 08/06/2023 10:13 AM EDT [facility] MCV 105(H) 82 - 98 fL 08/06/2023 10:13 AM EDT [facility] RDW 13.0 11.5 - 15.0 % 08/06/2023 10:13 AM EDT [facility] Platelet Count 158 150 - 450 K/uL 08/06/2023 10:13 AM EDT [facility] Neutrophil 55.0 % 08/06/2023 10:13 AM EDT [facility] Lymphocyte 23.9 % 08/06/2023 10:13 AM EDT [facility] Monocyte 16.2 % 08/06/2023 10:13 AM EDT [facility] Eosinophil 3.7 % 08/06/2023 10:13 AM EDT [facility] Basophil 0.7 % 08/06/2023 10:13 AM EDT [facility] Immature Granulocyte (Nixa, Myelo, Promyelocyte) 0.5 % 08/06/2023 10:13 AM EDT [facility] Absolute Neutrophil Count 2.21 1.50 - 7.70 K/uL 08/06/2023 10:13 AM EDT [facility] Absolute Lymphocyte Count 0.96(L) 1.00 - 5.00 K/uL 08/06/2023 10:13 AM EDT [facility] Absolute Monocyte Count 0.65 0.10 - 1.00 K/uL 08/06/2023 10:13 AM EDT [facility] Absolute Eosinophil Count 0.15 0.00 - 0.70 K/uL 08/06/2023 10:13 AM EDT [facility] Absolute Basophil Count 0.03 0.00 - 0.20 K/uL 08/06/2023 10:13 AM EDT [facility] Absolute Immature Granulocyte (Nixa, Myelo, Promyelocyte) 0.02 0.00 - 0.09 K/uL 08/06/2023 10:13 AM EDT [facility] MCH 33.1 23.0 - 37.0 pg 08/06/2023 10:13 AM EDT [facility] MCHC 31.5 29.0 - 38.0 g/dL 08/06/2023 10:13 AM EDT [facility] MPV 11.8 8.0 - 14.0 fL 08/06/2023 10:13 AM EDT [facility] Blood PERIPHERAL NERVOUS SYSTEM STRUCTURE / Unknown 08/05/2023 4:04 PM EDT 08/05/2023 7:41 PM EDT Oziel Carrington MD LAB BLOOD ORDERABLES Final Result [facility] [address] [place] [address], * Hemoglobin A1C (08/05/2023 4:04 PM EDT) Hemoglobin A1C 4.8 4.6 - 5.6 % 08/06/2023 9:24 AM EDT [facility] Comment: 4.6 to 5.6% ?Normal 5.7 to 6.4% ?Pre-diabetes, increased risk for diabetes >= 6.5% ?Diabetes mellitus Estimated Average Glucose 91 mg/dL 08/06/2023 9:24 AM EDT [facility] Blood PERIPHERAL NERVOUS SYSTEM STRUCTURE / Unknown 08/05/2023 4:04 PM EDT 08/05/2023 7:41 PM EDT Oziel Carrington MD LAB BLOOD ORDERABLES Final Result [facility] [address] [place] [address], * (ABNORMAL) Comprehensive Metabolic Panel (08/05/2023 4:04 PM EDT) Pathologist [facility] Sodium 137 134 - 144 mmol/L [address] 08/05/2023 9:07 PM EDT [facility] Potassium 4.6 3.2 - 5.1 mmol/L [address] 08/05/2023 9:07 PM EDT [facility] Comment:Samples tested in se rum may exhibit a higher potassium value than those tested on plasma. Our current range is based on plasma testing. Chloride 103 97 - 109 mmol/L [address] 08/05/2023 9:07 PM EDT [facility] Total CO2/Bicarbonate 28 20 - 32 mmol/L [address] 08/05/2023 9:07 PM EDT [facility] Anion Gap 6 5 - 15 mmol/L [facility] [address] 08/05/2023 9:07 PM EDT [facility] BUN 36(H) 9 - 26 mg/dL [address] 08/05/2023 9:07 PM EDT [facility] Creatinine, Blood 1.20 0.70 - 1.30 mg/dL [place] [id number] 08/05/2023 9:07 PM EDT [facility] Glucose, Blood 67(L) 70 - 110 mg/dL [address] 08/05/2023 9:07 PM EDT [facility] Calcium 9.1 8.5 - 10.5 mg/dL [address] 08/05/2023 9:07 PM EDT [facility] Total Protein 6.1 6.1 - 8.2 g/dL [address] 08/05/2023 9:07 PM EDT [facility] Albumin, Blood 3.6 3.4 - 5.0 g/dL [address] 08/05/2023 9:07 PM EDT [facility] Globulin Result 2.5 2.5 - 4.3 g/dL [address] 08/05/2023 9:07 PM EDT [facility] AST (SGOT) 43(H) 15 - 37 U/L [address] 08/05/2023 9:07 PM EDT [facility] ALT (SGPT) 44 0 - 55 U/L [address] 08/05/2023 9:07 PM EDT [facility] Alkaline Phosphatase 107 40 - 150 U/L [address] 08/05/2023 9:07 PM EDT [facility] Total Bilirubin 0.3 0.2 - 1.2 mg/dL [address] 08/05/2023 9:07 PM EDT [facility] Estimated GFR (MDRD) 59(L) >=60 mL/min/BSA [address] 08/05/2023 9:07 PM EDT [facility] Blood PERIPHERAL NERVOUS SYSTEM STRUCTURE / Unknown 08/05/2023 4:04 PM EDT 08/05/2023 7:41 PM EDT Oziel Carrington MD LAB BLOOD ORDERABLES Final Result [facility] [address] [place] [address], documented in this encounter Visit Diagnoses Diagnosis Encounter for screening, unspecified documented in this encounter Care Teams Water Manager Relationship Specialty Start Date End Date Oziel Carrington MD PCP - General Internal Medicine 05/21/23 01/09/24 Oziel Carrington MD [address] [place] [address] PCP - General Internal Medicine 01/10/24 documented as of this encounter
--- OUTSIDE RECORDS SUMMARY | 2024-06-26 20:14 | XMS_ITS | Encounter Summary ---
Author Organization [facility] Address [address] [facility] [place] [address] Care Team Providers Care Process Specialist Name Role Phone Oziel Carrington MD Primary Care Provider [phone] Encounter Details Date Type Department Care Team (Late st Contact Info) Description 12/20/2023 Billing Encounter [facility] Main Lab [address] [place] [phone] Oziel Carrington MD [address] [phone] Social History Tobacco Use Types Packs/Day Years Used Date Smoking Tobacco: Never Smokeless Tobacco: Never Alcohol Use Standard Drinks/Week Comments Never 0 (1 standard drink = 0.6 oz pur e alcohol) [facility] Utilities Answer Date Recorded In the past 12 months has [employer], gas, oil, or water [employer] threatened to shut off services in your [...] 1 10/19/2022 PHQ-9 Total Score 2 10/19/2022 Congress Scale Score: Not on file Sex and [...] st Contact Info) Description 06/16/2024 Procedure Pass [facility] [address] [place] [phone] 07/07/2024 1:30 PM EDT Appointment [facility] [address] [place] [phone] [phone] 09/16/2024 2:00 PM EDT Office Visit [facility] [address] [facility] [address] [place] [address] Oziel Carrington MD [address] [facility] [address] [place] [address] 10/07/2024 2:30 PM EDT Office Visit 2nd Floor [facility] [facility] [address] [facility] 2nd floor room [address] [place] [address] Felipe Bishop, CYNDY [address] [place] [address] 10/22/2024 11:00 AM EDT Appointment [facility] [address] [place] [address] [phone] John West MD [address] [facility] [address] [place] [address] 11/03/2024 3:00 PM EDT Office Visit [facility] [address], [address] [place] [address] John West MD [address] [place] [address] [place] [address] documented as of this encounter Visit Diagnoses Not on filedocumented in this encounter Additional Health Concerns Infection Onset Date Last Indicated Resolved Time Highly Infectious Respiratory Virus 06/04/202406/0406/16/2024 11:33 AM EST documented as of this encounter Care Teams Process Specialist Relationship Specialty Start Date End Date Oziel Carrington MD [address] [facility] [address] [place] [address] PCP - General Internal Medicine 10/19/22 documented as of this encounter
--- OUTSIDE RECORDS SUMMARY | 2024-06-26 20:14 | XMS_ITS | Encounter Summary ---
Author Organization Reyna Jackson [facility] Address [address] [place] [address] Care Team Providers Care Department Operations Manager Name Role Phone Genevieve Cheung MD Primary Care Provider [phone] Oziel Carrington MD Primary Care Provider [phone]- [phone] Oziel Carrington MD Primary Care Provider [phone]- [phone] Oziel Carrington MD Primary Care Provider [phone]- [phone] Encounter Details Date Type Department Care Team (Late Contact Info) Description 12/14/2020 Lab [facility] Orders Diego Lau PA [address] [place] [address] Social History Tobacco Use Types Packs/Day Years Used Date Smoking Tobacco: Never Assessed Sex and Gender Information Value Date Recorded Sex Assigned at Male 10/24/2023 1:28 PM EDT Legal Sex Male 5:17 PM EST Gender Identity Male 10/24/2023 1:28 PM EDT Sexual Orientation Not on file COVID-19 Exposure Response Date Recorded In the last month, have you been in contact with someone who was confirmed or suspected to have Coronavirus / COVID-19? No / Unsure 12/13/2020 4:10 PM EDT documented as of this encounter Plan of Treatment Upcoming Encounters Date Type Department Care Team (Late Contact Info) Description 07/10/2024 4:30 PM EDT Office Visit [facility] Pain Medicine [address] [facility] 3rd [place] [address] Jim Christensen MD [address] [place] [address] [address] [place] [address] In Person with Physician 03/05/2025 3:30 PM EST Office Visit [facility] Optometry [facility] [address] [facility] [address], 5th [place] [address] Samantha Flores, OD [address] [facility] 5th [place] [address] In Person with Affiliate Marketing Specialist documented as of this encounter Procedures Procedure Name Priority Date/Time Associated Diagnosis Comments CORONAVIRUS SARS-COV-2, MOLECULAR STAT 12/14/2020 9:48 PM EDT documented in this encounter Results * Coronavirus SARS-CoV-2, Molecular (12/14/2020 9:48 PM EDT) Coronavirus SARS-CoV-2 Not Detected Not Detected Parametric QS7 12/15/2020 4:30 PM EDT [facility] Comment: A Not Detected (negative) test result means that SARS-CoV-2 RNA was not present in the specimen above the limit of detection. A negative result does not rule out the possibility of COVID-19 infection and should not be used as the sole basis for treatment or patient management decisions. If COVID-19 is still suspected, based on exposure history together with other clinical findings, re-testing should be considered. Test performed at: ?? [facility] ?? Department of Pathology and Laboratory Medicine ?? [address] [place] [address] ?? CLIA: [id number] Test performed using the MemBlazePath COVID-19 Combo Amplitude high throughput real-time RT-PCR assay. This test has received Emergency Use Authorization approval from the U.S. FDA, and its performance characteristics have been verified by the Molecular Diagnostics Laboratory at [facility]. ??Laboratory test results should always be considered in the context of clinical observations and epidemiological data in making a final diagnosis and patient management decisions. Fact Sheet for Healthcare Providers: https://www.fda.gov/media/025031/download Fact Sheet for Patients: https://www.[employer].gov/media/724873/download xOther NASOPHARYNGEAL SWAB / Unknown Collection / Unknown 12/14/2020 9:48 PM EDT 12/15/2020 7:45 AM EDT us Diego [employer] STOOL[employer] ORDERABL ES Final Result Performing Organization Address City/State/[facility] [place] [address] documented in this encounter Visit Diagnoses Not on filedocumented in this encounter Additional Health Concerns Infection Onset Date Last Indicated Resolved Time COVID Suspect 12/14/2020 12/14/2020 12/15/2020 4:3 0 PM EDT documented as of this encounter Care Teams Department Operations Manager Relationship Specialty Start Date End Date Genevieve Cheung MD [address] [place] [address], [address] [place] [address] PCP - General 02/19/20 01/22/23 Oziel Carrington MD [address] [place] [address], [address] [address] PCP - General Internal Medicine 05/21/23 01/09/24 Oziel Carrington MD 5 [facility] [email or web address] [address] PCP - General 01/23/23 05/20/23 Oziel Carrington MD 1 [facility] [email or web address] [address] PCP - General Internal Medicine 01/10/24 documented as of this encounter
--- OUTSIDE RECORDS SUMMARY | 2024-06-26 20:14 | XMS_ITS ---
Author Organization [facility] Care Team Providers Care Tow Boat Captain Name Role Phone Leninruthann, Arlin Unavailable Unavailable Gage, Liseth Unavailable Unavailable Allergies and adverse reactions Code CodeSystem Substance Reaction Severity StartDate Concern Status tyramine Unknown 12/17/2020 active 25771 RXNORM Gabapentin Unknown 04/02/2022 active Care Team Name Role Address Phone Organization Dates Arlin Irineo PCP [address] [facility] [address], [place], [address], [place] (Office[place] : [facility] 04/02/2022 - 04/16/2022 Liseth Almonte Attending Physician [address] [facility] [address], [place], [address], [place] (Office[place] : [facility] 04/02/2022 - 04/16/2022 Immunizations Immunization Status Vaccine Details Vaccine Code CodeSystem Date Notes Influenza completed Influenza, high-dose, split virus, quadrivalent, injectable, preservative free 197 CVX created date: 12/19/2020 administere d date: 01/25/2022 Tdap completed tetanus toxoid, reduced diphtheria toxoid, and acellular pertussis vaccine, adsorbed 115 CVX created date: 12/19/2020 administere d date: 10/09/2019 SARS-COV-2 (COVID-19) completed SARS-COV-2 (COVID-19) vaccine, mRNA, spike protein, LNP, preservative free, 10 mcg/0.2mL dose, len-sucrose formulation Step 2 of Multi-step with next step required 218 CVX created date: 02/28/2021 administere d date: 07/15/2020 moderna SARS-COV-2 (COVID-19) completed SARS-COV-2 (COVID-19) vaccine, mRNA, spike protein, LNP, preservative free, 100 mcg/0.5mL dose or 50 mcg/0.25mL dose Step 1 of Multi-step with next step required 207 CVX created date: 12/19/2020 administere d date: 06/10/2020 second dose SARS-COV-2 COVID-19 Booster completed SARS-COV-2 (COVID-19) vaccine, mRNA, spike protein, LNP, preservative free, 30 mcg/0.3mL dose 208 CVX created date: 04/03/2022 administere d date: 03/03/2021 SARS-COV-2 COVID-19 Booster #2 completed SARS-COV-2 (COVID-19) vaccine, mRNA, spike protein, LNP, preservative free, 30 mcg/0.3mL dose 208 CVX created date: 04/03/2022 administere d date: 07/27/2021 SARS COV-2 COVID 19 Booster Bivalent (Moderna) completed SARS-COV-2 (COVID-19) vaccine, mRNA, spike protein, LNP, bivalent, preservative free, 50 mcg/0.5 mL or 25 mcg/0.25 mL dose 229 CVX created date: 04/03/2022 administere d date: 01/25/2022 Mental Status Section Date Assessment Total Score Description 04/16/2022 BIMS 11 moderate cognit marck impairment CAM 0 No delirium ind icated PHQ-9 00 04/05/2022 BIMS 11 moderate cognit marck impairment CAM 0 No delirium ind icated PHQ-9 00 Problems Problem # Description Date of onset Resolved Date Code CodeSystem Concern Status 1 ACUTE KIDNEY FAILURE, UNSPECIFIED 04/02/[address] active 2 ANEMIA, UNSPECIFIED 04/02/[address] active 3 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 04/02/[address] active 4 CONTUSION OF SCALP, SUBSEQUENT ENCOUNTER 04/02/[address] active 5 FACIAL WEAKNESS 04/02/[address] active 6 NONDISPLACED FRACTURE OF BODY OF SCAPULA, RIGHT SHOULDER, SUBSEQUENT ENCOUNTER FOR FRACTURE WITH ROUTINE HEALING 04/02/[address] active 7 OTHER PANCYTOPENIA 04/02/[address] active 8 PERSONAL HISTORY OF OTHER MALIGNANT NEOPLASM OF SKIN 04/02/[address] active 9 TYPE 2 DIABETES MELLITUS WITH DIABETIC CHRONIC KIDNEY DISEASE 04/02/[address] active 10 TYPE 2 DIABETES MELLITUS WITH DIABETIC NEPHROPATHY 04/02/[address] active 11 UNSPECIFIED PROTEIN-CALORIE MALNUTRITION 04/02/[address] active 12 CHRONIC KIDNEY DISEASE, STAGE 3 UNSPECIFIED 02/04/[address] active 13 MAJOR DEPRESSIVE DISORDER, RECURRENT SEVERE WITHOUT PSYCHOTIC FEATURES 02/04/[address] active 14 PRIMARY GENERALIZED (OSTEO)ARTHRITIS 02/04/[address] active 15 SPONDYLOSIS WITHOUT MYELOPATHY OR RADICULOPATHY, LUMBOSACRAL REGION 02/04/[address] active 16 UNSPECIFIED ASTHMA, UNCOMPLICATED 02/04/[address] active 17 UNSPECIFIED FRACTURE OF OCCIPUT, SUBSEQUENT ENCOUNTER FOR FRACTURE WITH ROUTINE HEALING 02/04/2004/02/[address] completed 18 ADULT FAILURE TO THRIVE 12/18/[address] active 19 AGE-RELATED OSTEOPOROSIS WITHOUT CURRENT PATHOLOGICAL FRACTURE 12/18/[address] active 20 CHRONIC KIDNEY DISEASE, UNSPECIFIED 12/18/1901/29/[address] completed 21 COGNITIVE COMMUNICATION DEFICIT 12/18/[address] active 22 DIFFICULTY IN WALKING, NOT ELSEWHERE CLASSIFIED 12/18/[address] active 23 GASTRO-ESOPHAGEAL REFLUX DISEASE WITHOUT ESOPHAGITIS 12/18/[address] active 24 HYPERLIPIDEMIA, UNSPECIFIED 12/18/[address] active 25 OTHER PANCYTOPENIA 12/18/19 21 01/29/[address] completed 26 REPEATED FALLS 12/18/[address] active 27 SCHIZOAFFECTIVE DISORDER, BIPOLAR TYPE 12/18/[address] active 28 SCOLIOSIS, UNSPECIFIED 12/18/[address] active 29 SPONDYLOLYSIS, THORACIC REGION 12/18/19 21 01/29/[address] completed 30 TYPE 2 DIABETES MELLITUS WITHOUT COMPLICATIONS 12/18/19 21 04/02/[address] completed 31 UNSPECIFIED ASTHMA WITH (ACUTE) EXACERBATION 12/18/19 21 01/29/[address] completed 32 UNSPECIFIED OSTEOARTHRITIS, UNSPECIFIED SITE 12/18/19 21 01/29/[address] completed 33 WEAKNESS 12/18/[address] active 34 DIFFICULTY IN WALKING, NOT ELSEWHERE CLASSIFIED 04/03/20 17 12/14/[address] completed 35 GENERALIZED ANXIETY DISORDER 04/03/[address] active 36 INSOMNIA, UNSPECIFIED 04/03/[address] active 37 MAJOR DEPRESSIVE DISORDER, RECURRENT, SEVERE WITH PSYCHOTIC SYMPTOMS 04/03/20 17 01/29/[address] completed 38 MAJOR DEPRESSIVE DISORDER, RECURRENT, UNSPECIFIED 04/03/20 17 12/14/[address] completed 39 MULTIPLE FRACTURES OF RIBS, LEFT SIDE, SEQUELA 04/03/20 17 12/14/[address] completed 40 MULTIPLE FRACTURES OF RIBS, RIGHT SIDE, SEQUELA 04/03/20 17 12/14/[address] completed 41 MUSCLE WEAKNESS (GENERALIZED) 04/03/20 17 12/14/[address] completed 42 OTHER INJURY OF BLADDER, SEQUELA 04/03/20 17 12/14/[address] completed 43 POST-TRAUMATIC STRESS DISORDER, CHRONIC 04/03/[address] active 44 UNSPECIFIED FRACTURE OF FOURTH LUMBAR VERTEBRA, SEQUELA 04/03/20 17 12/14/[address] completed 45 UNSPECIFIED FRACTURE OF SECOND LUMBAR VERTEBRA, SEQUELA 04/03/20 17 12/14/[address] completed Reason for Referral No Reasons for Referral Entered Social History Social History Observation Description Start Date End Date Code Code System Current Smoking Status Tobacco smoking consumption unknown 722243139 SNOMED CT Sex Assigned At Male 1945 72642-7 [facility] Vital Signs Code Code System Vitals Name Values and Units Timing Information 28119-0 [facility] Pain Level Value=0.0 04/16/2022 9279-1 [facility] Respiratory Rate Value=20.0 Units=/m in 04/16/2022 8462-4 [facility] Blood Pressure-Diastolic Value=76 Un its=mmHg 04/16/2022 8480-6 [facility] Blood Pressure-Systolic Qryrl=922 Un its=mmHg 04/16/2022 8310-5 [facility] Body Temperature Value=97.6 Units=?? F 04/16/2022 8867-4 [facility] Heart rate Value=72.0 Units=/min 05/2022 90233-8 [facility] O2 % BldC Oximetry Value=98.0 Units= % 04/16/2022 00844-3 [facility] Weight Fqhtc=459.2 Units=Lbs 8302-2 [facility] Height Value=67.0 Units=Inches 04/03/2022
--- OUTSIDE RECORDS SUMMARY | 2024-06-26 20:15 | XMS_ITS | Encounter Summary ---
Author Organization [facility] Address [address] [facility] [place] [address] Care Team Providers Care Survey Associate Name Role Phone Oziel Carrington MD Primary Care Provider +1- [phone] Encounter Details Date Type Department Care Team (Late st Contact Info) Description 11/11/2023 Billing Encounter [facility] Main Lab [address] [place] [phone] Starla Hill MD [address] [facility] [address] [place], [place] [phone] Social History Tobacco Use Types Packs/Day Years Used Date Smoking Tobacco: Never Smokeless Tobacco: Never Alcohol Use Standard Drinks/Week Comments Never 0 (1 standard drink = 0.6 oz pur e alcohol) Depression Answer Date Recorded Feeling Down, Depressed, or Hopeless 1 10/19/2022 PHQ-9 Total Score 2 10/19/2022 [place] Scale Score: Not on file Sex and [...] st Contact Info) Description 06/16/2024 Procedure Pass [facility] [address] [place] [address] [phone] 07/07/2024 1:30 PM EDT Appointment [facility] [address] [place] [address] [phone] 09/16/2024 2:00 PM EDT Office Visit [facility] [address] [facility], [address] [place] [address] Oziel Carrington MD [address] [place] [phone] 10/07/2024 2:30 PM EDT Office Visit 2nd Floor [facility] [address] [facility] 330 [facility] 2nd floor room 240 [place] [address] Felipe Bishop, CYNDY 330 [place] [address] 10/22/2024 11:00 AM EDT Appointment [facility] 330 [place] [address] [phone] John West MD [address] [place] [address] [place] [address] 11/03/2024 3:00 PM EDT Office Visit [facility] [address] [facility], [address] [place] [address] John West MD [address] [place] [phone] documented as of this encounter Visit Diagnoses Not on filedocumented in this encounter Additional Health Concerns Infection Onset Date Last Indicated Resolved Time Highly Infectious Respirator y Virus (Rule Out) 12/13/2023 12/14/2023 12/14/2023 12:49 AM EDT Highly Infectious Respiratory Virus 06/04/202406/0406/16/2024 11:33 AM EST documented as of this encounter Care Teams Survey Associate Relationship Specialty Start Date End Date Oziel Carrington MD [address] [place], [place] [phone] PCP - General Internal Medicine 10/19/22 documented as of this encounter
--- OUTSIDE RECORDS SUMMARY | 2024-06-26 20:15 | XMS_ITS | Clinical Summary ---
Author Organization [facility] Address [address] [place] [address] Care Team Providers Care Park Recreation Manager Name Role Phone Oziel Carrington MD Primary Care Provider +1- [phone] Allergies Active Allergy Reactions Criticality Noted Date Comments Tyramine Other (See Comments) 01/10/2024 High blood pressure Medications * This document contains information received from the source organization and may not represent a complete record from that organization. tranylcypromine (PARNATE) 10 mg tablet Take 3 tablets (30 mg total) by mouth every morning & every evening. Active clonazePAM (KlonoPIN) 1 MG tablet Take 1 tablet (1 mg total) by mouth every morning & every evening. Active QUEtiapine (SEROquel) 300 MG tablet Take 250 mg by mouth at bedtime. Active BLOOD GLUCOSE MONITORING (FashionQlubTouch Ultra2 blood glucose monitoring) Kit 1 strip by Other route once a week. Active acetaminophen (TylenoL) 325 mg cap Take 2 capsules (650 mg total) by mouth 2 times a day as needed (pain). 1 Active cholecalciferol (VITAMIN D3) 50 mcg (2,000 unit) Tab tablet Take 0.5 tablets (1,000 Units total) by mouth daily. 1 Active metoclopramide (REGLAN) 10 MG tablet Take 1 tablet (10 mg total) by mouth 3 times a day as needed (nausea). Active baclofen (LIORESAL) 10 MG tablet Take 1 tablet (10 mg total) by mouth 3 times a day. Active ferrous gluconate (FERGON) 324 mg (37.5 mg iron) Tab tablet Take 1 tablet (324 mg total) by mouth every other day. Active fluticasone propionate (FLONASE ALLERGY RELIEF) 50 mcg/actuation nasal spray 2 sprays into each nostril daily. each nostril Active ondansetron (ZOFRAN) 4 MG tablet Take 1 tablet (4 mg total) by mouth every 8 hours as needed for nausea. Active polyethylene glycol (MIRALAX) 17 gram packet Take 1 packet (17 g total) by mouth daily. Active pantoprazole (PROTONIX) 20 MG tablet Take 1 tablet (20 mg total) by mouth daily. Active sodium bicarb-sodium chloride Kit 4 sprays into each nostril daily as needed (post-nasal drip). Active FREESTYLE LITE STRIPS Strp Check glucose once per day. E11.65 3 Active freestyle 28 gauge lancets Check glucose once per day. E11.65 3 Active sodium chloride 1,000 mg tablet Take 1 tablet (1 g total) by mouth 3 times a day with meals. Active gabapentin (NEURONTIN) 400 MG capsule Take 400 mg by mouth every morning & every evening. 03/18/20 22 Discontinue d(Discontin ued by another clinician) famotidine (PEPCID) 20 MG tablet Take 20 mg by mouth every morning & every evening. 03/18/20 22 Discontinue d(Discontin ued by another clinician) aspirin 81 MG chewable tablet Chew 81 mg daily. 03/18/20 Discontinue d(Discontin ued by another clinician) lidocaine (LIDODERM) 5 % patch Place 1 patch on the skin daily after breakfast. 03/18/20 Discontinue d(Discontin ued by another clinician) Active Problems Problem Noted Date Diagnosed Date Psychological factor affecting physical conditio n 03/24/2024 Schizoaffective disorder, bipolar type 4 Hypermetropia 08/25/2023 Overview (08/25/2023): Laterality: Right Unspecified blepharitis right eye, unspecified e yelid 08/25/2023 Overview (08/25/2023): Diagnosed Date: 06/19/2016 Unspecified blepharitis left eye, unspecified ey elid 08/25/2023 Overview (08/25/2023): Diagnosed Date: 06/19/2016 Vertical diplopia 08/25/2023 Abnormal weight loss 08/25/2023 Age-related osteoporosis wit hout current pathological fracture 08/25/2023 Overview (08/25/2023): Diagnosed Date: 01/29/2019 Anxiety state 08/25/2023 Gastroesophageal reflux disease 08/25/2023 Posterior vitreous detachment, left eye 08/25/19 24 Overview (08/25/2023): Diagnosed Date: 06/19/2016 Chronic kidney disease 08/25/2023 Type 2 diabetes mellitus wit hout complication, without long-term current use of insulin 08/25/2023 Overview (08/25/2023): Diagnosed Date: 06/19/2016 Vitamin D deficiency 08/25/2023 Overview (08/25/2023): Diagnosed Date: 05/14/2019 Combined form of age-related cataract, both eyes 03/20/2023 Hyperopia of both eyes 03/20/2023 Presbyopia of both eyes 03/20/2023 Encounters * This document contains information received from the source organization and may not represent a complete record from that organization. Date Type Department Care Team Description 06/15/2024 3:15 PM EST - 06/15/2024 11:59 PM EST Hospital Encounter [facility]iology [address] [place] [address] Asher Andersen PA Left shoulder pain; Pain Discharge Disposition: Home or Self Care 05/12/2024 Telephone [facility] [address] [address] Braxton Larios, PhD Appointment (3RD call: I spoke the patient to schedule f/u (3) appointments with Dr. Larios from our call on 04/20/24. ??Patient is still hospitalized and not sure of discharge date. ??Patient will call me directly when he is home to schedule these appointments.) 04/28/2024 Telephone [facility] [address] [address] Braxton Larios, PhD Appointment (I spoke the patient to schedule f/u (3) appointments with Dr. Larios from our call on 04/20/24. Patient is still hospitalized and not sure of discharge date. Patient will call me directly when he is home to schedule these appointments.) 04/20/2024 Telephone [facility] [address] [place] [address] Braxton Larios, PhD Appointment (I spoke to the patient to schedule 3 f/u appointments with Dr. Braxton Larios (3rd outreach). The patient is currently hospitalized and I LVM for him to call me back directly when he can schedule these appts. I will also f/u with him next week.) 03/30/2024 10:25 AM EST - 03/30/2024 11:59 PM EST Hospital Encounter [facility] Radiology [address] [place] [address] Daniel Reyes MD Scoliosis, unspecified scoliosis type, unspecified spinal region Discharge Disposition: Home or Self Care 03/30/2024 Telephone [facility] [address] [address] Braxton Larios, PhD Appointment (2ND LVM TO SCHEDULE F/U APPTS W/ DR. LARIOS) from Last 3 Months Immunizations Name Administration Dates Next Due COVID-19 Vaccine (MODERNA) ? Bivalent Formulation (as of December 2021) 01/25/2022 COVID-19 Vaccine (PFIZER) ? Original Formulation (prior to Apr 2021) 07/27/2021,03/03/2021 COVID-19 Vaccine (PFIZER) ? Jose-Sucrose Formulation (as of Apr 2021) 07/27/2021 COVID-19 Vaccine PEDIATRIC ( age 5years-11years)(PFIZER) - [place] Cap 07/15/2020 COVID-19 Vaccine ? (MODERNA) 07/15/2020,06/10/2020 Covid-19 vaccine (COMIRNATY) (Pfizer) 12 yrs+ Influenza Vaccine - HIGH DOSE (FLUZONE HD) 01/16 Pneumococcal Conjugate Vacci ne 13-Valent, (PCV13/PREVNAR 13) 03/15/2015 Pneumococcal polysaccharide vaccine 23-valent (PPSV23/Uleskswyo60) 07/27/2010 Tdap Vaccine (BOOSTRIX/ADACEL) 10/19/2022,2019 Zoster Vaccine Recombinant (Shingrix) 01/18/2023 Family History Medical History Relation Comments Heart attack Father Heart attack Mother Relation Status Comments Father Mother Social History Tobacco Use Types Packs/Day Years Used Date Smoking Tobacco: Never Assessed Sex and Gender Information Value Date Recorded Sex Assigned at Male 10/24/2023 1:28 PM EDT Legal Sex Male 5:17 PM EST Gender Identity Male 10/24/2023 1:28 PM EDT Sexual Orientation Not on file Last Filed Vital Signs Vital Sign Reading Time Taken Comments Blood Pressure 179/83 03/24/2024 2:55 PM EST Pulse 59 03/24/2024 2:53 PM EST Temperature 36.3 ??C (97.3 ??F) 03/24/2024 2:53 PM ES T Respiratory Rate 16 03/24/2024 2:53 PM EST Oxygen Saturation 98% 03/24/2024 2:53 PM EST Inhaled Oxygen Concentration - - Weight 55.8 kg (123 lb) 02/04/2024 2:24 PM EDT Height 157.5 cm (5' 2 ) 02/04/2024 2:24 PM EDT Body Mass Index 22.5 02/04/2024 2:24 PM EDT Plan of Treatment Upcoming Encounters Date Type Department Care Team (Late st Contact Info) Description 07/10/2024 4:30 PM EDT Office Visit [facility] Medicine [address] [facility] 3rd [place] [address] Jim Christensen MD [address] [facility] [address] [place] [address] In Person with Physician 03/05/2025 3:30 PM EST Office Visit [facility] Optometry [facility] [address] [facility], [address] [place] [address] Samantha Flores, LEELA [address] [place] [address] [place] [address] [phone] (work) In Person with Purification Director Health Maintenance Due Date Last Done Comments Depression Screening 1949 Hepatitis C Screening 08/16/1963 Hemoglobin A1c 08/19/2024 02/20/2024, 0804/2023, 10/24/2023, Additional history exists Urine Microalbumin 11/10/2024 11/11/2023, 0 10/24/2023, 08/14/2023, Additional history exists Lipid Panel 12/13/2024 12/14/2023, 10/13, 05/17/2023, Additional history exists Diabetic Eye Exam 03/04/2025 03/04/2024, , 03/04/2024, Additional history exists Blood Pressure 03/24/2025 03/24/2024 DTaP,Tdap,and Td Vaccines (3 - Td or Tdap) 10/19/2032 10/19/2022, 10/09/2019 Pneumococcal Vaccine: 65+ Years Completed 09/20/2023, 03/15/2015, 07/27/2010 Zoster Vaccine Completed 09/23/2023, 01/18/2023 COVID-19 Vaccine Completed 01/18/2024, , 02/05/2023, Additional history exists Influenza Vaccine Completed 01/18/2024, 01/16/2023 Meningococcal Vaccines Aged Out No lo nger eligible based on patient's age to complete this topic Procedures Procedure Name Priority Date/Time Associated Diagnosis Comments XR HUMERUS 1 VW LEFT Routine 06/15/2024 3:26 PM EST Pain XR SHOULDER 2+ VW LEFT Routine 06/15/2024 3:26 PM EST Left shoulder pain XR SCOLIOSIS SURVEY Routine 03/30/2024 1 0:40 AM EST Scoliosis, unspecified scoliosis type, unspecified spinal region ALBUMIN, URINE, RANDOM Routine 10/24/2023 1:38 PM EDT Type 2 diabetes mellitus without complication, without long-term current use of insulin (HCC) Chronic kidney disease, unspecified CKD stage HEMOGLOBIN A1C Routine 10/24/2023 1:38 PM EDT Type 2 diabetes mellitus without complication, without long-term current use of insulin (HCC) Chronic kidney disease, unspecified CKD stage LIPID PANEL Routine 10/24/2023 1:38 PM EDT Type 2 diabetes mellitus without complication, without long-term current use of insulin (HCC) Chronic kidney disease, unspecified CKD stage from Last 3 Months or Most Recently Relevant to Health Maintenance Results * XR Shoulder 2+ VW Left (06/15/2024 3:26 PM EST) Anatomical Region Laterality Modality Shoulder Left Digital Radiogra phy 06/15/2024 3:27 PM EST Narrative 06/15/2024 3:28 PM EST Left shoulder 2 views: Severe osteoarthritic changes are present with, eburnation and subchondral cyst formation. Superior migration of humeral head is seen. AP left humerus: No additional osseous abnormalities are seen. Procedure Note Rafa Caldwell MD - 06/15/2024 Left shoulder 2 views: Severe osteoarthritic changes are present with, eburnation and subchondral cyst formation. Superior migration of humeral head is seen. AP left humerus: No additional osseous abnormalities are seen. us Asher Price IM DIAGNOSTIC IMAGING ORDERABLE S Final Result * XR Humerus 1 VW Left (06/15/2024 3:26 PM EST) Anatomical Region Laterality Modality Arm Left Digital Radiogra phy 06/15/2024 3:27 PM EST Narrative 06/15/2024 3:28 PM EST Left shoulder 2 views: Severe osteoarthritic changes are present with, eburnation and subchondral cyst formation. Superior migration of humeral head is seen. AP left humerus: No additional osseous abnormalities are seen. Procedure Note Rafa Caldwell MD - 06/15/2024 Left shoulder 2 views: Severe osteoarthritic changes are present with, eburnation and subchondral cyst formation. Superior migration of humeral head is seen. AP left humerus: No additional osseous abnormalities are seen. Asher Price [facility] DIAGNOSTIC IMAGING ORDERABLE S Final Result * XR Scoliosis Survey 2-3 VW (03/30/2024 10:40 AM EST) Anatomical Region Laterality Modality Spine Digital Radiogra phy 03/30/2024 10:5 5 AM EST Narrative 03/30/2024 11:00 AM EST Scoliosis series was obtained on an EOS system, and compared to September 2022. There is profound kyphoscoliosis of the thoracolumbar curvature. Dextroscoliosis of the upper lumbar spine is seen with kyphosis of the thoracic curvature, slightly worsened since prior exam. Diffuse lumbar spondylotic changes are seen with severe disc space narrowing from L1 to L5 levels. There is downward tilt of the pelvis. There are surgical clips in the abdomen with slightly dilated loops of large bowel. A ventral abdominal wall hernia is suspected. Correlation with CT would be helpful for further evaluation. Procedure Note Rafa Caldwell MD - 03/30/2024 Scoliosis series was obtained on an EOS system, and compared to September 2022. There is profound kyphoscoliosis of the thoracolumbar curvature. Dextroscoliosis of the upper lumbar spine is seen with kyphosis of the thoracic curvature, slightly worsened since prior exam. Diffuse lumbar spondylotic changes are seen with severe disc space narrowing from L1 to L5 levels. There is downward tilt of the pelvis. There are surgical clips in the abdomen with slightly dilated loops of large bowel. A ventral abdominal wall hernia is suspected. Correlation with CT would be helpful for further evaluation. Daniel Reyes MD [facility] DIAGNOSTIC IMAGING ORDERABLE S Final Result * Albumin, Urine, Random (10/24/2023 1:38 PM EDT) Albumin/Creat inine Ratio, Urine <7 0 - 30 mg/g 10/24/2023 3:04 PM EDT [facility] Creatinine, Carlos A Urine 89.0 No Established Reference Range mg/dL 10/24/2023 3:04 PM EDT [facility] Microalbumin, Random Urine <0.6 No Established Reference Range mg/dL 10/24/2023 3:04 PM EDT [facility] Urine URINE SPECIMEN / Unknown Collection / Unknown 10/24/2023 1:38 PM EDT 10/24/2023 2:49 PM EDT us Aneta Quarles MD URINE ORDERABLES Final Re sult Performing Organization Address City/[facility]/ZIP Co de Phone Number [facility] [address] [place] [address], [place] * Hemoglobin A1C (10/24/2023 1:38 PM EDT) Hemoglobin A1C 5.5 4.8 - 5.9 % 10/24/2023 2:11 PM EDT [facility] Estimated Average Glucose 111 mg/dL 10/24/2023 2:11 PM EDT [facility] Blood Venipuncture / Unknown 10/24/2023 1:38 PM EDT 10/24/2023 1:52 PM EDT us Aneta Quarles MD LAB BLOOD ORDERABLES Berta l Result Performing Organization Address City/[facility]/ZIP Co de Phone Number [facility] [address] [place] [address], * (ABNORMAL) Lipid Panel (10/24/2023 1:38 PM EDT) Cholesterol 146 0 - 199 mg/dL 10/24/2023 2:20 PM EDT [facility] Triglycerides 62 0 - 149 mg/dL 10/24/2023 2:20 PM EDT [facility] HDL Cholesterol 76 41 - 999 mg/dL 10/24/2023 2:20 PM EDT [facility] LDL Cholesterol 58 0 - 129 mg/dL 10/24/2023 2:20 PM EDT [facility] Non-HDL Cholesterol 70 <190 mg/dL 10/24/2023 2:20 PM EDT [facility] Ratio Chol/HDL 1.9(L) 2.0 - 5.0 10/24/2023 2:20 PM EDT [facility] Blood Venipuncture / Unknown 10/24/2023 1:38 PM EDT 10/24/2023 1:52 PM EDT us Aneta Quarles MD LAB BLOOD ORDERABLES Berta thompson Result [facility] [address] [place] [address], from Last 3 Months or Most Recently Relevant to Health Maintenance Insurance MEDICARE [facility] MEDICARE SUPPLEMENT MEDICARE [facility] MEDICARE SUPPLEMENT MEDICARE [facility] MEDICARE SUPPLEMENT MEDICARE [facility] MEDICARE SUPPLEMENT Care Teams Park Recreation Manager Relationship Specialty Start Date End Date Oziel Carrington MD [address] [place] [address] PCP - General Internal Medicine 01/10/24
--- OUTSIDE RECORDS SUMMARY | 2024-06-26 20:15 | XMS_ITS | Encounter Summary ---
Author Organization [facility] Address [address] [facility] [place] [address] Care Team Providers Care School Bus Driver/Mechanic Name Role Phone Oziel Carrington MD Primary Care Provider +1- [phone] Encounter Details Date Type Department Care Team (Late Contact Info) Description 03/29/2022 Procedure Pass [facility] MRI [address] [place] [address] [phone] Social History Tobacco Use Types Packs/Day [...] suspected to have Coronavirus/COVID-19? No / Unsure 03/29/2022 5:03 PM EST documented as of this encounter [...] (Late Contact Info) Description 06/16/2024 Procedure Pass [facility] MRI [address] [place] [address] [phone] 07/07/2024 1:30 PM EDT Appointment [facility] [address] [place] [address] [phone] 09/16/2024 2:00 PM EDT Office Visit [facility] [address] [facility], [address] [place] [address] Oziel Carrington MD [address] [place] [address] [place] [address] 10/07/2024 2:30 PM EDT Office Visit [address] [place] [address] [address] [facility] 330 [facility] 2nd floor room [address] [place] [address] Felipe Bishop, CYNDY [address] [place] [address] 10/22/2024 11:00 AM EDT Appointment [facility] [address] [place] [address] [phone] John West MD [address] [place] [address] 11/03/2024 3:00 PM EDT Office Visit [facility] 5 [facility], [address] [place] [address] John West MD [address] [place] [phone] documented as of this encounter Visit Diagnoses [...] documented as of this encounter Care Teams School Bus Driver/Mechanic Relationship Specialty Start Date End Date Oziel Carrington MD [address] [place] [address] PCP - General Internal Medicine 10/19/22 documented as of this encounter
--- OUTSIDE RECORDS SUMMARY | 2024-06-26 20:15 | XMS_ITS | Encounter Summary ---
Author Organization [facility] Address [address] [place] [address] Care Team Providers Care Microscopist Name Role Phone Oziel Carrington MD Primary Care Provider +1- [phone] Encounter Details Date Type Department Care Team (Late st Contact Info) Description 07/30/2023 Scan Document - View in Chart [facility] Department [address] [place] [phone] Provider, MD Boo [address] [place], [place] [phone] Social History Tobacco Use Types Packs/Day Years Used Date Smoking Tobacco: Never Smokeless Tobacco: Never Alcohol Use Standard Drinks/Week Comments Never 0 (1 standard drink = 0.6 oz pur e alcohol) Depression Answer Date Recorded Feeling Down, Depressed, or Hopeless 1 10/19/2022 PHQ-9 Total Score 2 10/19/2022 [place] Scale Score: Not on file Sex and [...] st Contact Info) Description 06/16/2024 Procedure Pass [facility] [address] [place] [address] [phone] 07/07/2024 1:30 PM EDT Appointment [facility] [address] [place] [address] [phone] 09/16/2024 2:00 PM EDT Office Visit [facility] 5 [facility], [address] [place] [phone] Oziel Carrington MD [address] [place] [address] [place] [address] 10/07/2024 2:30 PM EDT Office Visit 2nd [facility] [address] [facility] 330 [facility] 2nd floor room [address] [place] [address] Felipe Bishop, RD [address] [place] [address] 10/22/2024 11:00 AM EDT Appointment [facility] [address] [place] [address] [phone] John West MD [address] [place] [phone] 11/03/2024 3:00 PM EDT Office Visit [facility] [address] [place] [address], [address] [place] [address] John West MD [address] [place] [phone] documented as of this encounter Visit Diagnoses Not on filedocumented in this encounter Additional Health Concerns Infection Onset Date Last Indicated Resolved Time Influenza 07/24/2023 07/24/2023 07/31/2023 1:52 AM EDT Highly Infectious Respirator y Virus (Rule Out) 12/13/2023 12/14/2023 12/14/2023 12:49 AM EDT Highly Infectious Respiratory Virus 06/04/202406/0406/16/2024 11:33 AM EST documented as of this encounter Care Teams Microscopist Relationship Specialty Start Date End Date Oziel Carrington MD [address] [place] [phone] PCP - General Internal Medicine 10/19/22 documented as of this encounter
--- OUTSIDE RECORDS SUMMARY | 2024-06-26 20:15 | XMS_ITS | Encounter Summary ---
Author Organization [facility] Address [address] [place] [address] Care Team Providers Care Paper Inserter Name Role Phone Oziel Carrington MD Primary Care Provider +1- [phone] Reason for Visit * Reason Comments Med Refill Encounter Details Date Type Department Care Team ([facility] st Contact Info) Description 12/11/2021 Refill [facility] 300 [facility], [address] [place] [address] Markie Kamara MD [address] [address] Social History Tobacco Use Types Packs/Day Years [...] suspected to have Coronavirus/COVID-19? No / Unsure 12/13/2021 2:59 PM EDT documented as of this encounter [...] Description 06/16/2024 Procedure Pass [facility] 330 [place] [address] [phone] 07/07/2024 1:30 PM EDT Appointment [facility] 330 [place] [address] [phone] 09/16/2024 2:00 PM EDT Office [facility] 725 [facility], [address] [place] [address] Oziel Carrington MD [address] [place] [address] [place] [address] 10/07/2024 2:30 PM EDT Office Visit 2nd Floor [facility] [address] [facility] Nutrition 330 [facility] 2nd floor room 240 [place] [address] Felipe Bishop, RD 330 [place] [address] 10/22/2024 11:00 AM EDT Appointment [facility] 330 [place] [address] [phone] John West MD [address] [place] [address] [place] [address] 11/03/2024 3:00 PM EDT Office Visit [facility] [address] [facility], [address] [place] [address] John West MD [address] [place] [address] documented as of this encounter Visit Diagnoses [...] documented as of this encounter Care Teams Paper Inserter Relationship Specialty Start Date End Date Oziel Carrington MD [address] [place] [address] PCP - General Internal Medicine 10/19/22 documented as of this encounter
--- OUTSIDE RECORDS SUMMARY | 2024-06-26 20:15 | XMS_ITS | Encounter Summary ---
Author Organization [facility] Address [address] [place] [address] Care Team Providers Care Offline Editor Name Role Phone Oziel Carrington MD Primary Care Provider +1- [phone] Oziel Carrington MD Primary Care Provider +1- [phone] Encounter Details Date Type Department Care Team (Late Contact Info) Description 12/14/2023 Lab Requisition [facility] Orders Liang Meeks MD 330 [facility] [place] [address] Encounter for screening, unspecified Social History Tobacco [...] Description 07/10/2024 4:30 PM EDT Office Visit [facility] Pain Medicine [address] 3rd [place] [address] Jim Christensen MD 1 [facility] 105 [place] [address] In Person with Physician 03/05/2025 3:30 PM EST Office [facility] Optometry [facility] 98 [facility], 5th [place] [address] Samantha Flores OD 330 [facility] 5th [place] [address] In Person with Beeswax Bleacher documented as of this encounter Procedures Procedure Name Priority Date/Time Associated Diagnosis Comments CULTURE, BLOOD STAT 12/14/2023 12:39 AM EDT Encounter for screening, unspecified CULTURE, BLOOD STAT 12/14/2023 12:39 AM EDT Encounter for screening, unspecified documented in this encounter Results * Culture, Blood (12/14/2023 12:39 AM EDT) Culture No growth after 5 days TRINI 12/19/2023 6:01 AM EDT [facility] Blood PERIPHERAL BLOOD SPECIMEN / Unknown 12/14/2023 12:39 AM EDT 12/14/2023 5:24 AM EDT us Liang Meeks MD MICROBIOLOGY - GENERAL ORDERA BLES Final Result Performing Organization Address City/[facility]/ZIP Co de Phone Number [facility] [address] [place] [address], * Culture, Blood (12/14/2023 12:39 AM EDT) Culture No growth after 5 days TRINI 12/19/2023 6:01 AM EDT [facility] Blood PERIPHERAL BLOOD SPECIMEN / Unknown 12/14/2023 12:39 AM EDT 12/14/2023 5:24 AM EDT us Liang Meeks MD MICROBIOLOGY - GENERAL ORDERA BLES Final Result Performing Organization Address City/[facility]/ZIP Co de Phone Number [facility] [address] [place] [address], [place] [phone] documented in this encounter Visit Diagnoses Diagnosis Encounter for screening, unspecified documented in this encounter Care Teams Offline Editor Relationship Specialty Start Date End Date Oziel Carrington MD PCP - General Internal Medicine 05/21/23 01/09/24 Oziel Carrington MD 725 [place] [address] PCP - General Internal Medicine 01/10/24 documented as of this encounter
--- OUTSIDE RECORDS SUMMARY | 2024-06-26 20:15 | XMS_ITS | Encounter Summary ---
Author Organization [facility] Address 330 [facility] [place] [address] Care Team Providers Care Property Damage Claims Adjustor Name Role Phone Oziel Carrington MD Primary Care Provider +1- [phone] Encounter Details Date Type Department Care Team (Late st Contact Info) Description 01/25/2022 Billing Encounter [facility] Main Lab 330 [place] [phone] Genevieve Cheung MD 725 [facility], [address] [place] [address] Social History Tobacco Use Types Packs/Day Years [...] suspected to have Coronavirus/COVID-19? No / Unsure 01/25/2022 10:28 AM EDT documented as of this encounter [...] st Contact Info) Description 06/16/2024 Procedure Pass [facility] 330 [place] [address] [phone] 07/07/2024 1:30 PM EDT Appointment [facility] 330 [place] [address] [phone] 09/16/2024 2:00 PM EDT Office Visit [facility] 725 [facility], [address] [place] [address] Oziel Carrington MD [address] [place] [address] [place] [address] 10/07/2024 2:30 PM EDT Office Visit 2nd [facility] [address] Nutrition 330 [facility] 2nd floor room 240 [place] [address] Felipe Bishop, CYNDY 330 [place] [address] 10/22/2024 11:00 AM EDT Appointment [facility] DXA 330 [place] [address] [phone] John West MD [address] [place] [address] 11/03/2024 3:00 PM EDT Office Visit [facility] [address] [place] [address], [address] [place] [address] John West MD [address] [place] [address] documented as of this encounter Visit Diagnoses [...] documented as of this encounter Care Teams Property Damage Claims Adjustor Relationship Specialty Start Date End Date Ozile Carrington MD [address] [place] [address] PCP - General Internal Medicine 10/19/22 documented as of this encounter
--- OUTSIDE RECORDS SUMMARY | 2024-06-26 20:15 | XMS_ITS | Encounter Summary ---
Author Organization [facility] Address 330 [facility] [address] Care Team Providers Care Form Setter/Driver Name Role Phone Oziel Carrington MD Primary Care Provider +1- [phone] Encounter Details Date Type Department Care Team (Late st Contact Info) Description 12/30/2022 Scan Document - View in Chart [facility] 330 [place] [address] Solange Baker [place] Social History Tobacco Use Types Packs/Day Years Used Date Smoking Tobacco: Never Smokeless Tobacco: Never Alcohol Use Standard Drinks/Week Comments Never 0 (1 standard drink = 0.6 oz pur e alcohol) Depression Answer Date Recorded Feeling Down, Depressed, or Hopeless 1 10/19/2022 PHQ-9 Total Score 2 10/19/2022 [place] Scale Score: Not on file Sex and [...] st Contact Info) Description 06/16/2024 Procedure Pass [facility] 330 [place] [address] [phone] 07/07/2024 1:30 PM EDT Appointment [facility] 330 [place] [address] [phone] 09/16/2024 2:00 PM EDT Office Visit [facility] 725 [facility], [address] [place] [address] Oziel Carrington MD [address] [place] [address] [place] [address] 10/07/2024 2:30 PM EDT Office Visit [address] [place] [address] [address] [facility] [address] floor room 240 [place] [address] Felipe Bishop, CYNDY 330 [place] [address] 10/22/2024 11:00 AM EDT Appointment [facility] DXA 330 [place] [address] [phone] John West MD [address] [place] [address] 11/03/2024 3:00 PM EDT Office Visit [facility] 5 [facility], [address] [place] [address] John West MD [address] [place] [address] documented as of this encounter Visit Diagnoses Not on filedocumented in this encounter Additional Health Concerns Infection Onset Date Last Indicated Resolved Time C. Diff (Rule Out) 05/06/2023 05/06/2023 4 9:49 AM EST Highly Infectious Respirator y Virus (Rule Out) 07/24/2023 07/24/2023 07/25/2023 7:07 AM E DT Influenza 07/24/2023 07/24/2023 07/31/2023 1:52 AM EDT Highly Infectious Respirator y Virus (Rule Out) 12/13/2023 12/14/2023 12/14/2023 12:49 AM EDT Highly Infectious Respiratory Virus 06/04/202406/0406/16/2024 11:33 AM EST documented as of this encounter Care Teams Form Setter/Driver Relationship Specialty Start Date End Date Oziel Carrington MD [address] [place] [address] PCP - General Internal Medicine 10/19/22 documented as of this encounter
--- OUTSIDE RECORDS SUMMARY | 2024-06-26 20:15 | XMS_ITS | Encounter Summary ---
Author Organization [facility] Address 330 [facility] [place] [address] Care Team Providers Care Geospatial Technologist Name Role Phone Oziel Carrington MD Primary Care Provider +1- [phone] Encounter Details Date Type Department Care Team (Late st Contact Info) Description 02/19/2022 Billing Encounter [facility] Main Lab 330 [place] [phone] Genevieve Cheung MD 725 [facility], [address] [place] [address] Social History Tobacco Use Types Packs/Day Years [...] suspected to have Coronavirus/COVID-19? No / Unsure 02/19/2022 2:27 PM EST documented as of this encounter [...] Contact Info) Description 06/16/2024 Procedure Pass [facility] 330 [place] [address] [phone] 07/07/2024 1:30 PM EDT Appointment [facility] 330 [place] [address] [phone] 09/16/2024 2:00 PM EDT Office Visit [facility] 725 [facility], [address] [place] [address] Oziel Carrington MD [address] [place] [address] [place] [address] 10/07/2024 2:30 PM EDT Office Visit 2nd [facility] [address]240 [facility] Nutrition 330 [facility] 2nd floor room 240 [place] [address] Felipe Bishop, CYNDY 330 [place] [address] 10/22/2024 11:00 AM EDT Appointment [facility] DXA 330 [place] [address] [phone] John West MD [address] [place] [address] [place] [address] 11/03/2024 3:00 PM EDT Office Visit [facility] [address] [place] [address], [address] [place] [address] John West MD [address] [place] [address] [place] [address] documented as of this encounter Visit Diagnoses [...] documented as of this encounter Care Teams Geospatial Technologist Relationship Specialty Start Date End Date Oziel Carrington MD [address] [place], [place] [phone] PCP - General Internal Medicine 10/19/22 documented as of this encounter
--- OUTSIDE RECORDS SUMMARY | 2024-06-26 20:15 | XMS_ITS | Encounter Summary ---
Author Organization [facility] Address 330 [facility] [place] [address] Care Team Providers Care Shoder Filler Name Role Phone Oziel Carrington MD Primary Care Provider +1- [phone] Reason for Referral * Diagnostic Imaging (Routine) - Closed Specialty Diagnoses / Procedures Referred By Hernanac enrique Referred To Contact Radiology Diagnoses Thoracic spondylosis Kyphoscoliosis and scoliosis Procedures X-RAY THORACIC SPINE 2 VIEWS X-RAY THORACIC SPINE 4+ VIEWS COMPLETE Dionicio Melgar MD 9 [place] [address] Phone: tel: fax: Referral ID Status Reason Start Date Expiration Date Visits Re quested Visits Authorized [id number] Closed 11/19/2023 11/18/2024 1 1 Encounter Details Date Type Department Care Team (Latest Contact Info) Description 11/19/2023 Ancillary Orders [facility], [facility] [address] [place] [address] Dionicio Melgar MD [address] [place] [address] Thoracic spondylosis (Primary Dx); Lumbar spondylosis; Kyphoscoliosis and scoliosis; Lumbar spondylolysis Social History Tobacco Use Types Packs/Day Years Used Date Smoking Tobacco: Never Smokeless Tobacco: Never Alcohol Use Standard Drinks/Week Comments Never 0 (1 standard drink = 0.6 oz pur e alcohol) Depression Answer Date Recorded Feeling Down, Depressed, or Hopeless 1 10/19/2022 PHQ-9 Total Score 2 10/19/2022 [place] Scale Score: Not on file Sex and [...] Description 06/16/2024 Procedure Pass [facility] 330 [place] [address] [phone] 07/07/2024 1:30 PM EDT Appointment [facility] 330 [place] [address] [phone] 09/16/2024 2:00 PM EDT Office Visit [facility] 725 [facility], [address] [place] [address] Oziel Carrington MD 5 [facility] [address] [place] [address] 10/07/2024 2:30 PM EDT Office Visit 2nd [facility] [employer] Nutrition 330 [facility] 2nd floor room 240 [place] [address] [place] [address] 10/22/2024 11:00 AM EDT Appointment [facility] DXA 330 [place] [address] [phone] John West MD [address] [place] [address] [place] [address] 11/03/2024 3:00 PM EDT Office Visit [facility] [address] [place] [address], [address] [place] [address] John West MD [address] [place] [address] [place] [address] documented as of this encounter Results * X-RAY THORACIC SPINE 2 VIEWS (11/19/2023 12:25 PM EDT) Anatomical Region Laterality Modality T-spine Digital Radiogra phy 11/19/2023 12:1 5 PM EDT Impressions 11/19/2023 12:34 PM EDT Kyphoscoliosis. Dictated: 11/19/2023 12:34 PM Report ID: [id number] Exam performed at [facility]. Report signed in external system at [facility] on 11/19/2023 12:34 Reported By: Kameron Martinez M.D. (MARY) Signed By: Kameron Martinez M.D. (MARY) Narrative 11/19/2023 12:34 PM EDT RESPONSIBLE FREIGHT BROKER AGENT: Kameron Martinez M.D. EXAMINATION: XR THORACIC SPINE 2 VW CLINICAL INDICATION: Thoracic pain. TECHNIQUE: Two views of the thoracic spine. COMPARISON: 01/21/2020 FINDINGS: There is a minor levoscoliosis of the upper thoracic spine, not significantly changed. ??The patient is moderately kyphotic. ??Bones are generally demineralized. ??The heights of the thoracic vertebrae are relatively well preserved. ??There is relatively minor marginal osteophyte formation in the midthoracic spine. ??Paravertebral soft tissues are normal. Procedure Note Kameron Martinez MD - 11/19/2023 RESPONSIBLE FREIGHT BROKER AGENT: Kameron Martinez M.D. EXAMINATION: XR THORACIC SPINE 2 VW CLINICAL INDICATION: Thoracic pain. TECHNIQUE: Two views of the thoracic spine. COMPARISON: 01/21/2020 FINDINGS: There is a minor levoscoliosis of the upper thoracic spine, notsignificantly changed. The patient is moderately kyphotic. Bones aregenerally demineralized. The heights of the thoracic vertebrae arerelatively well preserved. There is relatively minor marginal osteophyteformation in the midthoracic spine. Paravertebral soft tissues arenormal. IMPRESSION: Kyphoscoliosis. Dictated: 11/19/2023 12:34 PM Report ID: [id number] Exam performed at [facility]. Report signed in external system at [facility] on 2:34 Reported By: Kameron Martinez M.D. (MARY) Signed By: Kameron Martinez M.D. 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
--- OUTSIDE RECORDS SUMMARY | 2024-06-26 20:15 | XMS_ITS | Encounter Summary ---
Author Organization [facility] Address 330 [facility] [place] [address] Care Team Providers Care Dental Detail Representative Name Role Phone Oziel Carrington MD Primary Care Provider +1- [phone] Encounter Details Date Type Department Care Team (Late st Contact Info) Description 08/05/2023 Billing Encounter Oziel Gutierrez MD 5 [facility] [address] [place] [id number] Social History Tobacco Use Types Packs/Day Years Used Date Smoking Tobacco: Never Smokeless Tobacco: Never Alcohol Use Standard Drinks/Week Comments Never 0 (1 standard drink = 0.6 oz pur e alcohol) Depression Answer Date Recorded Feeling Down, Depressed, or Hopeless 1 10/19/2022 PHQ-9 Total Score 2 10/19/2022 Brea Scale Score: Not on file Sex and [...] Procedure Pass [facility] 330 [place] [address] [phone] 07/07/2024 1:30 PM EDT Appointment [address] [address] [phone] 09/16/2024 2:00 PM EDT Office Visit [facility] 725 [facility], [address] [place] [address] Oziel Carrington MD [address] [place] [address] [place] [address] 10/07/2024 2:30 PM EDT Office Visit 2nd [facility] [address]240 [facility] 330 [facility] 2nd floor room 240 [place] [address] Felipe Bishop, RD 330 [place] [address] 10/22/2024 11:00 AM EDT Appointment [facility] 330 [place] [address] [phone] John West MD [address] [place] [address] [place] [address] 11/03/2024 3:00 PM EDT Office Visit [facility] 725 [facility], [address] [place] [address] John West MD [address] [place] [address] documented as of this encounter Visit Diagnoses Not on filedocumented in this encounter Additional Health Concerns Infection Onset Date Last Indicated Resolved Time Highly Infectious Respirator y Virus (Rule Out) 12/13/2023 12/14/2023 12/14/2023 12:49 AM EDT Highly Infectious Respiratory Virus 06/04/202406/0406/16/2024 11:33 AM EST documented as of this encounter Care Teams Dental Detail Representative Relationship Specialty Start Date End Date Oziel Carrington MD [address] [place] [address] PCP - General Internal Medicine 10/19/22 documented as of this encounter
--- OUTSIDE RECORDS SUMMARY | 2024-06-26 20:15 | XMS_ITS | Encounter Summary ---
Author Organization [facility] Address [address] [place] [address] Care Team Providers Care Machine Package Sealer Name Role Phone Oziel Carrington MD Primary Care Provider +1- [phone] Reason for Referral * Diagnostic Imaging (Routine) - Closed Specialty Diagnoses / Procedures Referred By Contjeffery nunez Referred To Contact Diagnoses Pain Procedures XR Humerus 1 VW Left Asher Andersen PA [address] [place] [address] Phone: tel: fax: Referral ID Status Reason Start Date Expiration Date Visits Re quested Visits Authorized [id number] Closed 06/11/2024 09/04/2025 1 1 * Diagnostic Imaging (Routine) - Closed Specialty Diagnoses / Procedures Referred By Contac enrique Referred To Contact Diagnoses Left shoulder pain Procedures XR Shoulder 2+ VW Left Asher Andersen PA [address] [place] [address] Phone: tel: fax: Referral ID Status Reason Start Date Expiration Date Visits Re quested Visits Authorized [id number] Closed 06/15/2024 09/08/2025 1 1 Reason for Visit * Diagnostic Imaging (Routine) - Closed Specialty Diagnoses / Procedures Referred By Contac enrique Referred To Contact Diagnoses Left shoulder pain Procedures XR Shoulder 2+ VW Left Asher Andersen PA [address] [place] [address] Phone: tel: fax: Referral ID Status Reason Start Date Expiration Date Visits Re quested Visits Authorized [id number] Closed 06/15/2024 09/08/2025 1 1 Encounter Details Date Type Department Care Team (Latest Contact Info) Description 06/15/2024 3:15 PM EST - 06/15/2024 11:59 PM EST Hospital Encounter [facility] Radiology [address] [place] [address] Asher Andersen PA [address] [facility] 1st [place] [address] Left shoulder pain; Pain Discharge Disposition: Home or Self Care Social History Tobacco Use Types Packs/Day Years Used Date Smoking Tobacco: Never Assessed Sex and Gender Information Value Date Recorded Sex Assigned at Male 10/24/2023 1:28 PM EDT Legal Sex Male 5:17 PM EST Gender Identity Male 10/24/2023 1:28 PM EDT Sexual Orientation Not on file documented as of this encounter Medications at Time of Discharge acetaminophen (TylenoL) 325 mg cap Take 2 capsules (650 mg total) by mouth 2 times a day as needed (pain). 11/19/2020 baclofen (LIORESAL) 10 MG tablet Take 1 tablet (10 mg total) by mouth 3 times a day. BLOOD GLUCOSE MONITORING (Physiq Ultra2 blood glucose monitoring) Kit 1 strip by Other route once a week. cholecalciferol (VITAMIN D3) 50 mcg (2,000 unit) Tab tablet Take 0.5 tablets (1,000 Units total) by mouth daily. 11/19/2020 clonazePAM (KlonoPIN) 1 MG tablet Take 1 tablet (1 mg total) by mouth every morning & every evening. ferrous gluconate (FERGON) 324 mg (37.5 mg iron) Tab tablet Take 1 tablet (324 mg total) by mouth every other day. fluticasone propionate (FLONASE ALLERGY RELIEF) 50 mcg/actuation nasal spray 2 sprays into each nostril daily. each nostril freestyle 28 gauge lancets Check glucose once per day. E11.65 12/27/2022 FREESTYLE LITE STRIPS Strp Check glucose once per day. E11.65 12/27/2022 metoclopramide (REGLAN) 10 MG tablet Take 1 tablet (10 mg total) by mouth 3 times a day as needed (nausea). ondansetron (ZOFRAN) 4 MG tablet Take 1 tablet (4 mg total) by mouth every 8 hours as needed for nausea. pantoprazole (PROTONIX) 20 MG tablet Take 1 tablet (20 mg total) by mouth daily. polyethylene glycol (MIRALAX) 17 gram packet Take 1 packet (17 g total) by mouth daily. QUEtiapine (SEROquel) 300 MG tablet Take 250 mg by mouth at bedtime. sodium bicarb-sodium chloride Kit 4 sprays into each nostril daily as needed (post-nasal drip). sodium chloride 1,000 mg tablet Take 1 tablet (1 g total) by mouth 3 times a day with meals. tranylcypromine (PARNATE) 10 mg tablet Take 3 tablets (30 mg total) by mouth every morning & every evening. documented as of this encounter Plan of Treatment Upcoming Encounters Date Type Department Care Team (Late st Contact Info) Description 07/10/2024 4:30 PM EDT Office Visit [facility] Pain Medicine [address] [facility] 3rd [place] [address] Jim Christensen MD 1 [employer] [address] [place] [address] In Person with Physician 03/05/2025 3:30 PM EST [facility] [address] [facility] 5th [place] [address] Samantha Flores OD [address] [place] [address] [address] In Person with At Home Independent Call Center Agent documented as of this encounter Procedures Procedure Name Priority Date/Time Associated Diagnosis Comments XR SHOULDER 2+ VW LEFT Routine 06/15/2024 3:26 PM EST Left shoulder pain XR HUMERUS 1 VW LEFT Routine 06/15/2024 3:26 PM EST Pain documented in this encounter Results * XR Humerus 1 VW Left (06/15/2024 [...] additional osseous abnormalities are seen. us Asher T Le PA IMG DIAGNOSTIC IMAGING ORDERABLE S Final Result * XR Shoulder 2+ VW Left (06/15/2024 [...] additional osseous abnormalities are seen. us Asher T Le PA IMG DIAGNOSTIC IMAGING ORDERABLE S Final Result documented in this encounter Visit Diagnoses Diagnosis Left shoulder pain Pain in joint, shoulder region Pain Generalized pain documented in this encounter Care Teams Machine Package Sealer Relationship Specialty Start Date End Date Oziel Carrington MD [address] [place] [address] PCP - General Internal Medicine 01/10/24 documented as of this encounter
--- OUTSIDE RECORDS SUMMARY | 2024-06-26 20:15 | XMS_ITS | Encounter Summary ---
Author Organization [facility] Address 330 [facility] [place] [address] Care Team Providers Care Fire Alarm Installer Name Role Phone Oziel Carrington MD Primary Care Provider +1- [phone] Encounter Details Date Type Department Care Team (Late st Contact Info) Description 04/04/2022 Billing Encounter [facility] Geriatric Care [address] [facility], [address] [place] [address] Arlin Cabello MD 300 [facility], [address] [place] [address] Social History Tobacco Use Types Packs/Day Years [...] Pass [facility] 330 [place] [address] [phone] 07/07/2024 1:30 PM EDT Appointment [facility] 330 [place] [address] [phone] 09/16/2024 2:00 PM EDT Office Visit [facility] 7[address] [facility], [address] [place] [address] Oziel Carrington MD [address] [place] [address] [place] [address] 10/07/2024 2:30 PM EDT Office Visit 2nd [facility] [address] [facility] Nutrition [address] floor room 240 [place] [address] Felipe Bishop, RD 330 [place] [address] 10/22/2024 11:00 AM EDT Appointment [facility] 330 [place] [address] [phone] John West MD [address] [place] [address] [place] [address] 11/03/2024 3:00 PM EDT Office Visit [facility] 5 [facility], [address] [place] [address] John West MD [address] [place] [address] documented as of this encounter Visit Diagnoses [...] AM E DT Influenza 07/24/2023 07/24/2023 07/31/2023 1:5 2 AM EDT Highly Infectious Respirator y Virus (Rule Out) 12/13/2023 12/14/2023 12/14/2023 12:49 AM EDT Highly Infectious Respiratory Virus 06/04/202406/0406/16/2024 11:33 AM EST documented as of this encounter Care Teams Fire Alarm Installer Relationship Specialty Start Date End Date Ozile Carrington MD [address] [place] [address] PCP - General Internal Medicine 10/19/22 documented as of this encounter
--- OUTSIDE RECORDS SUMMARY | 2024-06-26 20:15 | XMS_ITS | Encounter Summary ---
Author Organization [facility] Address 330 [facility] [place] [address] Care Team Providers Care Glass Curvature Gauger Name Role Phone Oziel Carrington MD Primary Care Provider +1- [phone] Encounter Details Date Type Department Care Team (Late st Contact Info) Description 08/19/2023 Billing Encounter Starla Alford MD 300 [facility] [address] [place], [place] [phone] Social History Tobacco Use Types Packs/Day Years Used Date Smoking Tobacco: Never Smokeless Tobacco: Never Alcohol Use Standard Drinks/Week Comments Never 0 (1 standard drink = 0.6 oz pur e alcohol) Depression Answer Date Recorded Feeling Down, Depressed, or Hopeless 1 10/19/2022 PHQ-9 Total Score 2 10/19/2022 [place] Scale Score: Not on file Sex and [...] st Contact Info) Description 06/16/2024 Procedure Pass [facility] 330 [place] [address] [phone] 07/07/2024 1:30 PM EDT Appointment [facility] 330 [place] [address] [phone] 09/16/2024 2:00 PM EDT Office Visit [facility] 725 [facility], [address] [place] [address] Oziel Carrington MD [address] [place] [address] [place] [address] 10/07/2024 2:30 PM EDT Office Visit 2nd [facility] [address] [facility] 330 [facility] 2nd floor room 240 [place] [address] Felipe Bishop, CYNDY 330 [place] [address] 10/22/2024 11:00 AM EDT Appointment [facility] 330 [place] [address] [phone] John West MD [address] [place] [address] [place] [address] 11/03/2024 3:00 PM EDT Office Visit [facility] 725 [facility], [address] [place] [address] John West MD [address] [place] [address] [place] [address] documented as of this encounter Visit Diagnoses Not on filedocumented in this encounter Additional Health Concerns Infection Onset Date Last Indicated Resolved Time Highly Infectious Respirator y Virus (Rule Out) 12/13/2023 12/14/2023 12/14/2023 12:49 AM EDT Highly Infectious Respiratory Virus 06/04/202406/0406/16/2024 11:33 AM EST documented as of this encounter Care Teams Glass Curvature Gauger Relationship Specialty Start Date End Date Oziel Carrington MD [address] [address] PCP - General Internal Medicine 10/19/22 documented as of this encounter
--- OUTSIDE RECORDS SUMMARY | 2024-06-26 20:15 | XMS_ITS | Encounter Summary ---
Author Organization [facility] Address 330 [facility] [place] [address] Care Team Providers Care Plate Worker Helper Name Role Phone Oziel Carrington MD Primary Care Provider +1- [phone] Encounter Details Date Type Department Care Team (Late Contact Info) Description 12/26/2021 Procedure Pass [facility] 330 [place] [address] [phone] Social History Tobacco Use Types Packs/Day Years [...] (Late Contact Info) Description 06/16/2024 Procedure Pass [facility] MRI 330 [place] [address] [phone] 07/07/2024 1:30 PM EDT Appointment [facility] 330 [place] [address] [phone] 09/16/2024 2:00 PM EDT Office Visit [facility] 725 [facility], [address] [place] [address] Oziel Carrington MD [address] [place] [address] [place] [address] 10/07/2024 2:30 PM EDT Office Visit [address] [place] [address] [address] [facility] 330 [facility] 2nd floor room 240 [place] [address] Felipe Bishop, CYNDY 330 [place] [address] 10/22/2024 11:00 AM EDT Appointment [facility] DXA 330 [place] [address] [phone] John West MD [address] [place] [address] 11/03/2024 3:00 PM EDT Office Visit [facility] [address] [place] [address], [address] [place] [address] John West MD [address] [place] [address] documented as of this encounter Visit Diagnoses [...] documented as of this encounter Care Teams Plate Worker Helper Relationship Specialty Start Date End Date Oziel Carrington MD 5 [place] [address] PCP - General Internal Medicine 10/19/22 documented as of this encounter
--- OUTSIDE RECORDS SUMMARY | 2024-06-26 20:15 | XMS_ITS | Encounter Summary ---
Author Organization [facility] Address [address] [place] [address] Care Team Providers Care Signal Intelligence/Electronic Warfare Name Role Phone Oziel Carrington MD Primary Care Provider +1- [phone] Oziel Carrington MD Primary Care Provider +1- [phone] Encounter Details Date Type Department Care Team (Late Contact Info) Description 11/11/2023 Lab Requisition [facility] Orders Starla Hill MD 300 [facility] [address] [place] [address] Encounter for screening, unspecified Social History Tobacco [...] 07/10/2024 4:30 PM EDT Office [facility] Pain Medicine [address] 3rd [place] [address] Jim Christensen MD 1 [facility] [address] [place] [address] In Person with Physician 03/05/2025 3:30 PM EST Office Visit [facility] Optometry [facility] 98 [facility], 5th [place] [address] Samantha Flores OD 330 [facility] 5th [place] [address] In Person with Windows And Doors Installer documented as of this encounter Procedures Procedure Name Priority Date/Time Associated Diagnosis Comments CULTURE, AEROBIC, URINE Routine 11/11/2023 4:43 PM EDT Encounter for screening, unspecified documented in this encounter Results * Culture, Aerobic, Urine (11/11/2023 4:43 PM EDT) Culture <10,000 CFU/ml mixed urogenital lorie, probable contamination TRINI 11/12/2023 5:06 PM EDT [facility] Urine MID-STREAM URINE SPECIMEN / Unknown 11/11/2023 4:43 PM EDT 11/11/2023 7:32 PM EDT Starla Hill MD MICROBIOLOGY - GENERAL ORDERABLE S Final Result [facility] [address] [place] [address], documented in this encounter Visit Diagnoses Diagnosis Encounter for screening, unspecified documented in this encounter Care Teams Signal Intelligence/Electronic Warfare Relationship Specialty Start Date End Date Oziel Carrington MD PCP - General Internal Medicine 05/21/23 01/09/24 Oziel Carrington MD 725 [place] [address] PCP - General Internal Medicine 01/10/24 documented as of this encounter
--- OUTSIDE RECORDS SUMMARY | 2024-06-26 20:15 | XMS_ITS | Encounter Summary ---
Author Organization [facility] Address 330 [facility] [address] Care Team Providers Care Waxing Machine Operator Helper Name Role Phone Oziel Carrington MD Primary Care Provider +1- [phone] Encounter Details Date Type Department Care Team (Late st Contact Info) Description 11/11/2023 Billing Encounter Starla Alford MD 300 [facility] [address] [place], [place] [phone] Social History Tobacco Use Types Packs/Day Years Used Date Smoking Tobacco: Never Smokeless Tobacco: Never Alcohol Use Standard Drinks/Week Comments Never 0 (1 standard drink = 0.6 oz pur e alcohol) Depression Answer Date Recorded Feeling Down, Depressed, or Hopeless 1 10/19/2022 PHQ-9 Total Score 2 10/19/2022 [place] Scale Score: Not on file Sex and [...] st Contact Info) Description 06/16/2024 Procedure Pass [facility] 330 [place] [address] [phone] 07/07/2024 1:30 PM EDT Appointment [facility] 330 [place] [address] [phone] 09/16/2024 2:00 PM EDT Office Visit [facility] [address] [facility], [address] [place] [address] Oziel Carrington MD [address] [place] [address] [place] [address] 10/07/2024 2:30 PM EDT Office Visit [address] [facility] [place] [facility] [address] [facility] 330 [facility] 2nd floor room 240 [place] [address] Felipe Bishop, CYNDY 330 [place] [address] 10/22/2024 11:00 AM EDT Appointment [facility] 330 [place] [address] [phone] John West MD [address] [place] [address] [place] [address] 11/03/2024 3:00 PM EDT Office Visit [facility] [address] [facility], [address] [place] [address] John West MD [address] [place] [address] [place] [address] documented as of this encounter Visit Diagnoses Not on filedocumented in this encounter Additional Health Concerns Infection Onset Date Last Indicated Resolved Time Highly Infectious Respirator y Virus (Rule Out) 12/13/2023 12/14/2023 12/14/2023 12:49 AM EDT Highly Infectious Respiratory Virus 06/04/202406/0406/16/2024 11:33 AM EST documented as of this encounter Care Teams Waxing Machine Operator Helper Relationship Specialty Start Date End Date Oziel Carrington MD [address] [address] PCP - General Internal Medicine 10/19/22 documented as of this encounter
--- OUTSIDE RECORDS SUMMARY | 2024-06-26 20:15 | XMS_ITS | Encounter Summary ---
Author Organization [facility] Address 330 [facility] [address] Care Team Providers Care Hot Press Operator Name Role Phone Oziel Carrington MD Primary Care Provider +1- [phone] Encounter Details Date Type Department Care Team (Late st Contact Info) Description 02/01/2023 Billing Encounter [facility] Main Lab 330 [place] [address] Betty Emerson NP [address] [place] [address] Social History Tobacco Use Types Packs/Day Years Used Date Smoking Tobacco: Never Smokeless Tobacco: Never Alcohol Use Standard Drinks/Week Comments Never 0 (1 standard drink = 0.6 oz pur e alcohol) Depression Answer Date Recorded Feeling Down, Depressed, or Hopeless 1 10/19/2022 PHQ-9 Total Score 2 10/19/2022 [place] Scale Score: Not on file Sex and [...] Pass [facility] 330 [place] [address] [phone] 07/07/2024 1:30 PM EDT Appointment [facility] 330 [place] [address] [phone] 09/16/2024 2:00 PM EDT Office Visit [facility] [address] [facility], [address] [place] [address] Oziel Carrington MD [address] [place] [address] [place] [address] 10/07/2024 2:30 PM EDT Office Visit 2nd Floor [facility] [address] [facility] 330 [facility] 2nd floor room 240 [place] [address] Felipe Bishop, CYNDY [address] [place] [address] 10/22/2024 11:00 AM EDT Appointment [facility] 330 [place] [address] [phone] John West MD [address] [place] [address] [place] [address] 11/03/2024 3:00 PM EDT Office Visit [facility] [address] [facility], [address] [place] [address] John West MD [address] [place] [address] [place] [address] documented as of this encounter Visit Diagnoses [...] documented as of this encounter Care Teams Hot Press Operator Relationship Specialty Start Date End Date Oziel Carrington MD [address] [address] PCP - General Internal Medicine 10/19/22 documented as of this encounter
--- OUTSIDE RECORDS SUMMARY | 2024-06-26 20:15 | XMS_ITS | Encounter Summary ---
Author Organization [facility] Address 330 [facility] [address] Care Team Providers Care Cotton Classer Name Role Phone Oziel Carrington MD Primary Care Provider +1- [phone] Encounter Details Date Type Department Care Team (Late Contact Info) Description 05/30/2017 Billing Encounter [facility] Main Lab 330 [place] [address] Genevieve Cheung MD 725 [facility], [address] [place] [address] Social History Tobacco Use Types Packs/Day Years [...] (Late Contact Info) Description 06/16/2024 Procedure Pass [facility] MRI 330 [place] [address] [phone] 07/07/2024 1:30 PM EDT Appointment [facility] MRI 330 [place] [address] [phone] 09/16/2024 2:00 PM EDT Office Visit [facility] 725 [facility], [address] [place] [address] Oziel Carrington MD [address] [place] [address] [place] [address] 10/07/2024 2:30 PM EDT Office Visit 2nd Floor [facility] [address] [facility] 330 [facility] 2nd floor room 240 [place] [address] Felipe Bishop, CYNDY 330 [place] [address] 10/22/2024 11:00 AM EDT Appointment [facility] 330 [place] [address] [phone] John West MD [address] [place] [address] [place] [address] 11/03/2024 3:00 PM EDT Office Visit [facility] 725 [facility], [address] [place] [address] John West MD [address] [place] [address] [place] [address] documented as of this encounter Visit Diagnoses [...] documented as of this encounter Care Teams Cotton Classer Relationship Specialty Start Date End Date Oziel Carrington MD [address] [place] [address] PCP - General Internal Medicine 10/19/22 documented as of this encounter
--- OUTSIDE RECORDS SUMMARY | 2024-06-26 20:15 | XMS_ITS | Encounter Summary ---
Author Organization [facility] Address 330 [facility] [place] [address] Care Team Providers Care Air Conditioning Sheet Metal Installer Name Role Phone Oziel Carrington MD Primary Care Provider +1- [phone] Encounter Details Date Type Department Care Team (Late st Contact Info) Description 10/18/[address] [facility] Main Lab 330 [place] [phone] Genevieve Cheung MD 725 [facility], [address] [place] [address] Social History Tobacco Use Types Packs/Day Years [...] st Contact Info) Description 06/16/2024 Procedure Pass [facility] 330 [place] [address] [phone] 07/07/2024 1:30 PM EDT Appointment [facility] 330 [place] [address] [phone] 09/16/2024 2:00 PM EDT Office Visit [facility] 725 [facility], [address] [place] [address] Oziel Carrington MD [address] [place] [address] [place] [address] 10/07/2024 2:30 PM EDT Office Visit 2nd [facility] [address] [facility] Nutrition 330 [facility] 2nd floor room 240 [place] [address] Felipe Bishop, CYNDY 330 [place] [address] 10/22/2024 11:00 AM EDT Appointment [facility] 330 [place] [address] [phone] John West MD [address] [place] [address] 11/03/2024 3:00 PM EDT Office Visit [facility] [address] [place] [address], [address] [place] [address] John West MD [address] [place] [address] documented as of this encounter Visit Diagnoses [...] documented as of this encounter Care Teams Air Conditioning Sheet Metal Installer Relationship Specialty Start Date End Date Oziel Carrington MD [address] [place] [address] PCP - General Internal Medicine 10/19/22 documented as of this encounter
--- OUTSIDE RECORDS SUMMARY | 2024-06-26 20:15 | XMS_ITS | Encounter Summary ---
Author Organization [facility] Address 330 [facility] [place] [address] Care Team Providers Care Audit Clerks Supervisor Name Role Phone Oziel Carrington MD Primary Care Provider +1- [phone] Encounter Details Date Type Department Care Team (Late st Contact Info) Description 07/30/2023 Scan Document - Other [facility] Department [address] [place] [phone] Provider, MD Boo [address] [place] [address] Social History Tobacco Use Types Packs/Day Years Used Date Smoking Tobacco: Never Smokeless Tobacco: Never Alcohol Use Standard Drinks/Week Comments Never 0 (1 standard drink = 0.6 oz pur e alcohol) Depression Answer Date Recorded Feeling Down, Depressed, or Hopeless 1 10/19/2022 PHQ-9 Total Score 2 10/19/2022 Morris Scale Score: Not on file Sex and [...] st Contact Info) Description 06/16/2024 Procedure Pass [facility] [address] [place] [address] [phone] 07/07/2024 1:30 PM EDT Appointment [address] [address] [phone] 09/16/2024 2:00 PM EDT Office Visit [facility] 725 [facility], [address] [place] [address] Oziel Carrington MD [address] [place] [address] [place] [address] 10/07/2024 2:30 PM EDT Office Visit 2nd [facility] [address] [facility] 2nd floor room 240 [place] [address] Felipe Bishop, RD 330 [place] [address] 10/22/2024 11:00 AM EDT Appointment [facility] 330 [place] [address] [phone] John West MD [address] [place] [address] [place] [address] 11/03/2024 3:00 PM EDT Office Visit [facility] 5 [facility], [address] [place] [address] John West MD [address] [place] [address] documented as of this encounter Visit Diagnoses Not on filedocumented in this encounter Additional Health Concerns Infection Onset Date Last Indicated Resolved Time Influenza 07/24/2023 07/24/2023 07/31/2023 1:52 AM EDT Highly Infectious Respirator y Virus (Rule Out) 12/13/2023 12/14/2023 12/14/2023 12:49 AM EDT Highly Infectious Respiratory Virus 06/04/202406/0406/16/2024 11:33 AM EST documented as of this encounter Care Teams Audit Clerks Supervisor Relationship Specialty Start Date End Date Oziel Carrington MD [address] [place] [address] PCP - General Internal Medicine 10/19/22 documented as of this encounter
--- OUTSIDE RECORDS SUMMARY | 2024-06-26 20:15 | XMS_ITS | Encounter Summary ---
Author Organization [facility] Address 330 [facility] [address] Care Team Providers Care Business Developer Name Role Phone Oziel Carrington MD Primary Care Provider +1- [phone] Encounter Details Date Type Department Care Team (Late Contact Info) Description 04/24/2017 Billing Encounter [facility] 300 [facility], [address] [place] [address] Arlin Cabello MD 300 [facility], [address] [place] [address] Social History Tobacco Use Types Packs/Day Years [...] Contact Info) Description 06/16/2024 Procedure Pass [facility] 330 [place] [phone] 07/07/2024 1:30 PM EDT Appointment [facility] 330 [place] [address] [phone] 09/16/2024 2:00 PM EDT Office Visit [facility] 725 [facility], [address] [place] [address] Oziel Carrington MD [address] [place] [address] [place] [address] 10/07/2024 2:30 PM EDT Office Visit 2nd Floor [facility] [address] [facility] 330 [facility] 2nd floor room 240 [place] [address] Felipe Bishop, CYNDY 330 [place] [address] 10/22/2024 11:00 AM EDT Appointment [facility] 330 [place] [address] [phone] John West MD [address] [place] [address] [place] [address] 11/03/2024 3:00 PM EDT Office Visit [facility] 725 [facility], [address] [place] [address] John West MD [address] [place] [address] [place] [address] documented as of this encounter Visit Diagnoses [...] documented as of this encounter Care Teams Business Developer Relationship Specialty Start Date End Date Oziel Carrington MD [address] [place] [address] PCP - General Internal Medicine 10/19/22 documented as of this encounter
--- OUTSIDE RECORDS SUMMARY | 2024-06-26 20:15 | XMS_ITS | Encounter Summary ---
Author Organization [facility] Address 330 [facility] [place] [address] Care Team Providers Care Rnfa Name Role Phone Oziel Carrington MD Primary Care Provider +1- [phone] Reason for Visit * Reason Comments Med Refill Encounter Details Date Type Department Care Team (Late st Contact Info) Description 12/17/2022 Refill [facility] 300 [facility], [address] [place] [address] Betty Emerson NP [address] [place] [address] Social History Tobacco Use Types Packs/Day Years Used Date Smoking Tobacco: Never Smokeless Tobacco: Never Alcohol Use Standard Drinks/Week Comments Never 0 (1 standard drink = 0.6 oz pur e alcohol) Depression Answer Date Recorded Feeling Down, Depressed, or Hopeless 1 10/19/2022 PHQ-9 Total Score 2 10/19/2022 [place] Scale Score: Not on file Sex and [...] 06/16/2024 Procedure Pass [facility] 330 [place] [address] [phone] 07/07/2024 1:30 PM EDT Appointment [facility] 330 [place] [address] [phone] 09/16/2024 2:00 PM EDT Office Visit [facility] [address] [place] [address], [address] [place] [address] Oziel Carrington MD [address] [place] [address] [place] [address] 10/07/2024 2:30 PM EDT Office Visit 2nd [facility] [address]240 [facility] 330 [facility] 2nd floor room 240 [place] [address] Felipe Bishop, CYNDY 330 [place] [address] 10/22/2024 11:00 AM EDT Appointment [facility] 330 [place] [address] [phone] John West MD [address] [place] [address] [place] [address] 11/03/2024 3:00 PM EDT Office Visit [facility] 5 [facility], [address] [place] [address] John West MD [address] [place] [address] [place] [address] documented as of this encounter Visit Diagnoses [...] documented as of this encounter Care Teams Rnfa Relationship Specialty Start Date End Date Oziel Carrington MD [address] [address] PCP - General Internal Medicine 10/19/22 documented as of this encounter
--- OUTSIDE RECORDS SUMMARY | 2024-06-26 20:15 | XMS_ITS | Encounter Summary ---
Author Organization [facility] Address 330 [facility] [place] [address] Care Team Providers Care Reconciler Name Role Phone Oziel Carrington MD Primary Care Provider +1- [phone] Encounter Details Date Type Department Care Team (Late st Contact Info) Description 12/14/2022 Telephone [facility] [address] [place] [address] Bo Adkins MD [address] [place] [address] Social History Tobacco Use Types Packs/Day Years Used Date Smoking Tobacco: Never Smokeless Tobacco: Never Alcohol Use Standard Drinks/Week Comments Never 0 (1 standard drink = 0.6 oz pur e alcohol) Depression Answer Date Recorded Feeling Down, Depressed, or Hopeless 1 10/19/2022 PHQ-9 Total Score 2 10/19/2022 [place] Scale Score: Not on file Sex and [...] encounter Miscellaneous Notes * Telephone Encounter - Cristobal Arellano MA - 12/14/2022 10:28 AM EDT Pt called regarding injections He advised you asked who he is going to see for shoulder injections He is seeing at [facility] documented in this encounter Plan of Treatment Upcoming Encounters Date Type Department Care Team (Late st Contact Info) Description 06/16/2024 Procedure Pass [address] [address] [phone] 07/07/2024 1:30 PM EDT Appointment [address] [address] [phone] 09/16/2024 2:00 PM EDT Office Visit [facility] 5 [facility], [address] [place] [address] Oziel Carrington MD [address] [place] [address] 10/07/2024 2:30 PM EDT Office Visit [address] [place] [address] [address] [facility] 330 [facility] 2nd floor room 240 [place] [address] Felipe Bishop, CYNDY [address] [place] [address] 10/22/2024 11:00 AM EDT Appointment [address] [address] [phone] John West MD [address] [place] [address] [place] [address] 11/03/2024 3:00 PM EDT Office Visit [facility] 725 [facility], [address] [place] [address] John West MD 725 [facility] [address] [place] [address] documented as of this encounter Visit Diagnoses [...] documented as of this encounter Care Teams Reconciler Relationship Specialty Start Date End Date Oziel Carrington MD 725 [facility] [address] [place] [address] PCP - General Internal Medicine 10/19/22 documented as of this encounter
--- OUTSIDE RECORDS SUMMARY | 2024-06-26 20:15 | XMS_ITS | Encounter Summary ---
Author Organization [facility] Address 330 [place] [address] Care Team Providers Care Creative Services Intern Name Role Phone Oziel Carrington MD Primary Care Provider +1- [phone] Encounter Details Date Type Department Care Team (Late Contact Info) Description 04/26/2017 Billing Encounter [facility] 300 [facility] [address] [place] [address] Sophie Block, JUNIOR 300 [facility] [address] [place] [address] Social History Tobacco Use Types Packs/Day Years [...] (Late Contact Info) Description 06/16/2024 Procedure Pass [facility] 330 [place] [address] [phone] 07/07/2024 1:30 PM EDT Appointment [facility] 330 [place] [address] [phone] 09/16/2024 2:00 PM EDT Office Visit [facility] 725 [facility], [address] [place] [address] Oziel Carrington MD [address] [place] [address] [place] [address] 10/07/2024 2:30 PM EDT Office Visit 2nd Floor [facility] [address] [facility] Nutrition 330 [facility] 2nd floor room 240 [place] [address] Felipe Bishop, CYNDY 330 [place] [address] 10/22/2024 11:00 AM EDT Appointment [facility] 330 [place] [address] [phone] John West MD [address] [place] [address] [place] [address] 11/03/2024 3:00 PM EDT Office Visit [facility] 725 [facility], [address] [place] [address] John West MD [address] [place] [address] [place] [address] documented as of this encounter Visit Diagnoses Not on filedocumented in this encounter Additional Health Concerns Infection Onset Date Last Indicated Resolved Time Highly Infectious Respirator y Virus (Rule Out) 05/17/2022 05/17/2022 05/20/2022 6:[address] Highly Infectious Respiratory Virus 07/03/202207/0307/13/2022 3:12 PM EDT Highly Infectious Respirator y Virus (Rule Out) 08/04/2022 08/04/2022 08/04/2022 11:29 AM EDT Highly Infectious Respiratory Virus 08/04/202208/04/2023 1:52 AM EDT C. Diff (Rule Out) 05/06/2023 05/06/2023 9:49 AM EST Highly Infectious Respirator y Virus (Rule Out) 07/24/2023 07/24/2023 07/25/2023 7:07 AM E DT Influenza 07/24/2023 07/24/2023 07/31/2023 1:52 AM EDT Highly Infectious Respirator y Virus (Rule Out) 12/13/2023 12/14/2023 12/14/2023 12:49 AM EDT Highly Infectious Respiratory Virus 06/04/202406/0406/16/2024 11:33 AM EST documented as of this encounter Care Teams Creative Services Intern Relationship Specialty Start Date End Date Oziel Carrington MD [address] [place] [address] PCP - General Internal Medicine 10/19/22 documented as of this encounter
--- OUTSIDE RECORDS SUMMARY | 2024-06-26 20:15 | XMS_ITS | Encounter Summary ---
Author Organization [facility] Address 330 [facility] [place] [address] Care Team Providers Care Job Training Specialist Name Role Phone Oziel Carrington MD Primary Care Provider +1- [phone] Encounter Details Date Type Department Care Team (Late st Contact Info) Description 12/11/2022 Billing Encounter [facility] Main Lab 330 [place] [address] Betty Emerson NP [address] [place] [address] Social History Tobacco Use Types Packs/Day Years Used Date Smoking Tobacco: Never Smokeless Tobacco: Never Alcohol Use Standard Drinks/Week Comments Never 0 (1 standard drink = 0.6 oz pur e alcohol) Depression Answer Date Recorded Feeling Down, Depressed, or Hopeless 1 10/19/2022 PHQ-9 Total Score 2 10/19/2022 Sultan Scale Score: Not on file Sex and [...] st Contact Info) Description 06/16/2024 Procedure Pass [facility] 330 [place] [address] [phone] 07/07/2024 1:30 PM EDT Appointment [facility] 330 [place] [address] [phone] 09/16/2024 2:00 PM EDT Office Visit [facility] 725 [facility], [address] [place] [address] Oziel Carrington MD [address] [place] [address] [place] [address] 10/07/2024 2:30 PM EDT Office Visit 2nd Floor [facility] [address]240 [facility] 330 [facility] 2nd floor room 240 [place] [address] Felipe Bishop, CYNDY 330 [place] [address] 10/22/2024 11:00 AM EDT Appointment [facility] 330 [place] [address] [phone] John West MD [address] [place] [address] [place] [address] 11/03/2024 3:00 PM EDT Office Visit [facility] 725 [facility], [address] [place] [address] John West MD [address] [place] [address] [place] [address] documented as of this encounter Visit Diagnoses [...] documented as of this encounter Care Teams Job Training Specialist Relationship Specialty Start Date End Date Oziel Carrington MD [address] [address] PCP - General Internal Medicine 10/19/22 documented as of this encounter
--- OUTSIDE RECORDS SUMMARY | 2024-06-26 20:15 | XMS_ITS | Encounter Summary ---
Author Organization [facility] Address 330 [facility] [place] [address] Care Team Providers Care Building Code Inspector Name Role Phone Oziel Carrington MD Primary Care Provider +1- [phone] Encounter Details Date Type Department Care Team (Late st Contact Info) Description 12/08/2021 Telephone [facility] 300 [facility], [address] [place] [address] Dianelys Gonzalezarita PR Social History Tobacco Use Types Packs/Day Years [...] suspected to have Coronavirus/COVID-19? No / Unsure 11/30/2021 3:39 PM EDT documented as of this encounter Functional Status * Because of a physical, mental, or emotional condition, does this person have difficulty doing errands alone such as visiting a doctor's office or shopping? Answer Date of Assessment Author No 03/23/2021 1:09 PM EST documented as of this encounter Miscellaneous Notes * Telephone Encounter - Markie Kamara MD - 12/11/2021 12:25 PM EDT His trospium prescription was sent on 12/07 with plenty of refills * Telephone Encounter - Anita Gonzalez MA - 12/08/2021 3:06 PM EDT Pt is requesting Rx refill for trospium (SANCTURA) 20 mg tablet. documented in this encounter Plan of Treatment Upcoming Encounters Date Type Department Care Team (Late st Contact Info) Description 06/16/2024 Procedure Pass [address] [address] [phone] 07/07/2024 1:30 PM EDT Appointment [address] [address] [phone] 09/16/2024 2:00 PM EDT Office Visit [facility] [address] [facility], [address] [place] [address] Oziel Carrington MD [address] [place] [address] 10/07/2024 2:30 PM EDT Office Visit 2nd [facility] [address]240 [facility] 330 [facility] 2nd floor room 240 [place] [address] Felipe Bishop, CYNDY 330 [place] [address] 10/22/2024 11:00 AM EDT Appointment [address] [address] [phone] John West MD [address] [place] [address] [place] [address] 11/03/2024 3:00 PM EDT Office Visit [facility] [address] [facility], [address] [place] [address] John West MD 7[address] [facility] [address] [place] [address] documented as of this encounter Visit Diagnoses [...] as of this encounter Care Teams Building Code Inspector Relationship Specialty Start Date End Date Oziel Carrington MD 725 [facility] [address] [place] [address] PCP - General Internal Medicine 10/19/22 documented as of this encounter
--- OUTSIDE RECORDS SUMMARY | 2024-06-26 20:15 | XMS_ITS | Encounter Summary ---
Author Organization [facility] Address 330 [facility] [place] [address] Care Team Providers Care Consulting Database Administrator Name Role Phone Oziel Carrington MD Primary Care Provider +1- [phone] Encounter Details Date Type Department Care Team (Late st Contact Info) Description 08/01/2023 Billing Encounter [facility] 725 [facility], [address] [place] [address] Oziel Carrington MD [address] [place] [address] [place] [address] Social History Tobacco Use Types Packs/Day Years Used Date Smoking Tobacco: Never Smokeless Tobacco: Never Alcohol Use Standard Drinks/Week Comments Never 0 (1 standard drink = 0.6 oz pur e alcohol) Depression Answer Date Recorded Feeling Down, Depressed, or Hopeless 1 10/19/2022 PHQ-9 Total Score 2 10/19/2022 [place] Scale Score: Not on file Sex and [...] 06/16/2024 Procedure Pass [facility] 330 [place] [address] [phone] 07/07/2024 1:30 PM EDT Appointment [facility] 330 [place] [address] [phone] 09/16/2024 2:00 PM EDT Office Visit [facility] [address] [place] [address], [address] [place] [address] Oziel Carrington MD [address] [place] [address] [place] [address] 10/07/2024 2:30 PM EDT Office Visit 2nd [facility] [address]240 [facility] Nutrition 330 [facility] 2nd floor room 240 [place] [address] Felipe Bishop, CYNDY 330 [place] [address] 10/22/2024 11:00 AM EDT Appointment [facility] 330 [place] [address] [phone] John West MD [address] [place] [address] [place] [address] 11/03/2024 3:00 PM EDT Office Visit [facility] 5 [facility], [address] [place] [address] John West MD [address] [place] [address] documented as of this encounter Visit Diagnoses Not on filedocumented in this encounter Additional Health Concerns Infection Onset Date Last Indicated Resolved Time Highly Infectious Respirator y Virus (Rule Out) 12/13/2023 12/14/2023 12/14/2023 12:49 AM EDT Highly Infectious Respiratory Virus 06/04/202406/0406/16/2024 11:33 AM EST documented as of this encounter Care Teams Consulting Database Administrator Relationship Specialty Start Date End Date Oziel Carrington MD [address] [place] [address] PCP - General Internal Medicine 10/19/22 documented as of this encounter
--- OUTSIDE RECORDS SUMMARY | 2024-06-26 20:15 | XMS_ITS | Encounter Summary ---
Author Organization [facility] Address [address] [place] [address] Care Team Providers Care Community Artist Name Role Phone Oziel Carrington MD Primary Care Provider +1- [phone] Reason for Referral * Diagnostic Imaging (Routine) - Closed Specialty Diagnoses / Procedures Referred By Contac t Referred To Contact Diagnoses Scoliosis, unspecified scoliosis type, unspecified spinal region Procedures XR Scoliosis Survey 2-3 VW Daniel Reyes MD [address] [place] [address] [place] [address] Phone: tel: fax: Referral ID Status Reason Start Date Expiration Date Visits Re quested Visits Authorized [id number] Closed 03/30/2024 06/23/2025 1 1 Encounter Details Date Type Department Care Team (Late st Contact Info) Description 03/26/2024 [facility] Daniel Reyes MD [address] [place] [address] [place] [address] Scoliosis, unspecified scoliosis type, unspecified spinal region (Primary Dx) Social History Tobacco Use Types [...] Description 07/10/2024 4:30 PM EDT Office Visit [facility] Pain Medicine [address] 3rd [place] [address] Jim Christensen MD 1 [facility] [address] [place] [address] In Person with Physician 03/05/2025 3:30 PM EST Office [facility] Optometry [facility] 98 [facility], 5th [place] [address] Samantha Flores OD [address] [place] [facility] 5th [place] [address] In Person with [employer] Lay Up Worker documented as of this encounter Results * XR Scoliosis Survey 2-3 VW (03/30/2024 [...] helpful for further evaluation. Daniel Reyes MD IMG DIAGNOSTIC IMAGING ORDERABLE S Final Result documented in this encounter Visit Diagnoses Diagnosis Scoliosis, unspecified scoliosis type, unspecified spinal region- Primary Scoliosis, unspecified scoliosis type, unspecified spinal region documented in this encounter Care Teams Community Artist Relationship Specialty Start Date End Date Oziel Carrington MD [address]25 [place] [address] PCP - General Internal Medicine 01/10/24 documented as of this encounter
--- OUTSIDE RECORDS SUMMARY | 2024-06-26 20:15 | XMS_ITS | Encounter Summary ---
Author Organization [facility] Address 330 [facility] [place] [address] Care Team Providers Care Audio Visual Arts Director Name Role Phone Oziel Carrington MD Primary Care Provider +1- [phone] Encounter Details Date Type Department Care Team (Late st Contact Info) Description 12/06/2021 Prep for Case [facility] 300 [facility], [address] [place] [address] Markie Kamara MD 300 [facility] [address] [place] [address] Kidney stone on left side (Primary Dx) Social History Tobacco Use Types [...] Description 06/16/2024 Procedure Pass [facility] 330 [place] [address] [phone] 07/07/2024 1:30 PM EDT Appointment [facility] 330 [place] [address] [phone] 09/16/2024 2:00 PM EDT Office Visit [facility] 725 [facility], [address] [place] [address] Oziel Carrington MD [address] [place] [address] [place] [address] 10/07/2024 2:30 PM EDT Office Visit 2nd Floor [facility] [address]240 [facility] Nutrition 330 [facility] 2nd floor room 240 [place] [address] Felipe Bishop, CYNDY 330 [place] [address] 10/22/2024 11:00 AM EDT Appointment [facility] 330 [place] [address] [phone] John West MD [address] [place] [address] [place] [address] 11/03/2024 3:00 PM EDT Office Visit [facility] 7[address] [facility], [address] [place] [address] oJhn West MD [address] [place] [address] [place] [address] Scheduled Orders Name Type Priority Associated Diagnoses Orde r Schedule SARS-CoV-2 RNA PCR (routine at [facility]) Microbiology Routine Kidney stone on left side Expected: 12/06/2021, Expires: 12/06/2022 documented as of this encounter Visit Diagnoses Diagnosis Kidney stone on left side- Primary documented in this encounter Additional Health [...] documented as of this encounter Care Teams Audio Visual Arts Director Relationship Specialty Start Date End Date Oziel Carrington MD [address] [place] [address] PCP - General Internal Medicine 10/19/22 documented as of this encounter
--- OUTSIDE RECORDS SUMMARY | 2024-06-26 20:15 | XMS_ITS | Encounter Summary ---
Author Organization [facility] Address 330 [facility] [place] [address] Care Team Providers Care Track Repair Person Name Role Phone Oziel Carrington MD Primary Care Provider +1- [phone] Encounter Details Date Type Department Care Team (Late Contact Info) Description 02/19/2022 Procedure Pass [facility] MRI 330 [place] [address] [phone] Social History Tobacco Use Types Packs/Day [...] (Late Contact Info) Description 06/16/2024 Procedure Pass [facility] MRI 330 [place] [address] [phone] 07/07/2024 1:30 PM EDT Appointment [facility] 330 [place] [address] [phone] 09/16/2024 2:00 PM EDT Office Visit [facility] 725 [facility], [address] [place] [address] Oziel Carrington MD [address] [place] [address] [place] [address] 10/07/2024 2:30 PM EDT Office Visit [address] [place] [address] [address] [facility] 330 [facility] 2nd floor room 240 [place] [address] Felipe Bishop, CYNDY 330 [place] [address] 10/22/2024 11:00 AM EDT Appointment [facility]XA 330 [place] [address] [phone] John West MD [address] [place] [address] 11/03/2024 3:00 PM EDT Office Visit [facility] 5 [facility], [address] [place] [address] John West MD [address] [place] [address] documented as of this encounter Visit Diagnoses [...] documented as of this encounter Care Teams Track Repair Person Relationship Specialty Start Date End Date Oziel Carrington MD 5 [place] [address] PCP - General Internal Medicine 10/19/22 documented as of this encounter
--- OUTSIDE RECORDS SUMMARY | 2024-06-26 20:15 | XMS_ITS | Encounter Summary ---
Author Organization [facility] Address 330 [facility] [place] [address] Care Team Providers Care Interior Wall Assembler Name Role Phone Oziel Carrington MD Primary Care Provider +1- [phone] Reason for Visit * Reason Comments Med Refill Encounter Details Date Type Department Care Team (Late st Contact Info) Description 12/28/2022 Refill [facility] 300 [facility], [address] [place] [address] Betty Emerson NP [address] [place] [address] Social History Tobacco Use Types Packs/Day Years Used Date Smoking Tobacco: Never Smokeless Tobacco: Never Alcohol Use Standard Drinks/Week Comments Never 0 (1 standard drink = 0.6 oz pur e alcohol) Depression Answer Date Recorded Feeling Down, Depressed, or Hopeless 1 10/19/2022 PHQ-9 Total Score 2 10/19/2022 [place] Scale Score: Not on file Sex and [...] Description 06/16/2024 Procedure Pass [facility] 330 [place] [address] [phone] 07/07/2024 1:30 PM EDT Appointment [facility] 330 [place] [address] [phone] 09/16/2024 2:00 PM EDT Office Visit [facility] [address] [place] [address], [address] [place] [address] Oziel Carrington MD [address] [place] [address] [place] [address] 10/07/2024 2:30 PM EDT Office Visit 2nd [facility] [address]240 [facility] Nutrition 330 [facility] 2nd floor room 240 [place] [address] Felipe Bishop, CYNDY 330 [place] [address] 10/22/2024 11:00 AM EDT Appointment [facility] 330 [place] [address] [phone] John West MD [address] [place] [address] [place] [address] 11/03/2024 3:00 PM EDT Office Visit [facility] 5 [facility], [address] [place] [address] John West MD [address] [place] [address] [place] [address] documented as of this encounter Visit Diagnoses [...] documented as of this encounter Care Teams Interior Wall Assembler Relationship Specialty Start Date End Date Oziel Carrington MD [address] [address] PCP - General Internal Medicine 10/19/22 documented as of this encounter
--- OUTSIDE RECORDS SUMMARY | 2024-06-26 20:15 | XMS_ITS | Encounter Summary ---
Author Organization [facility] Address 330 [place] [address] Care Team Providers Care Ore Tester Name Role Phone Oziel Carrington MD Primary Care Provider +1- [phone] Encounter Details Date Type Department Care Team (Late st Contact Info) Description 08/26/2023 Scan Document - View in Chart [facility] Department 330 [place] [phone] Provider, MD Boo [address] [place], [place] [address] Social History Tobacco Use Types Packs/Day Years Used Date Smoking Tobacco: Never Smokeless Tobacco: Never Alcohol Use Standard Drinks/Week Comments Never 0 (1 standard drink = 0.6 oz pur e alcohol) Depression Answer Date Recorded Feeling Down, Depressed, or Hopeless 1 10/19/2022 PHQ-9 Total Score 2 10/19/2022 [place] Scale Score: Not on file Sex and [...] st Contact Info) Description 06/16/2024 Procedure Pass [facility] 330 [place] [address] [phone] 07/07/2024 1:30 PM EDT Appointment [address] [address] [phone] 09/16/2024 2:00 PM EDT Office Visit [facility] 5 [facility], [address] [place] [address] Oziel Carrington MD [address] [place] [address] [place] [address] 10/07/2024 2:30 PM EDT Office Visit 2nd [facility] [address]240 [facility] 330 [facility] 2nd floor room 240 [place] [address] Felipe Bishop, RD 330 [place] [address] 10/22/2024 11:00 AM EDT Appointment [facility] 330 [place] [address] [phone] John West MD [address] [place] [address] 11/03/2024 3:00 PM EDT Office Visit [facility] [address] [place] [address], [address] [place] [address] John West MD [address] [place] [address] documented as of this encounter Visit Diagnoses Not on filedocumented in this encounter Additional Health Concerns Infection Onset Date Last Indicated Resolved Time Highly Infectious Respirator y Virus (Rule Out) 12/13/2023 12/14/2023 12/14/2023 12:49 AM EDT Highly Infectious Respiratory Virus 06/04/202406/0406/16/2024 11:33 AM EST documented as of this encounter Care Teams Ore Tester Relationship Specialty Start Date End Date Oziel Carrington MD [address] [place] [address] PCP - General Internal Medicine 10/19/22 documented as of this encounter
--- OUTSIDE RECORDS SUMMARY | 2024-06-26 20:15 | XMS_ITS | Encounter Summary ---
Author Organization [facility] Address 330 [facility] [place] [address] Care Team Providers Care Medical Claims Examiner Name Role Phone Oziel Carrington MD Primary Care Provider +1- [phone] Encounter Details Date Type Department Care Team (Late st Contact Info) Description 01/03/2023 Billing Encounter [facility] Main Lab 330 [place] [phone] Starla Hill MD 300 [facility] [address] [place], [place] [phone] Social History Tobacco Use Types Packs/Day Years Used Date Smoking Tobacco: Never Smokeless Tobacco: Never Alcohol Use Standard Drinks/Week Comments Never 0 (1 standard drink = 0.6 oz pur e alcohol) Depression Answer Date Recorded Feeling Down, Depressed, or Hopeless 1 10/19/2022 PHQ-9 Total Score 2 10/19/2022 [place] Scale Score: Not on file Sex and [...] st Contact Info) Description 06/16/2024 Procedure Pass [facility] 330 [place] [address] [phone] 07/07/2024 1:30 PM EDT Appointment [facility] 330 [place] [address] [phone] 09/16/2024 2:00 PM EDT Office Visit [facility] 725 [facility], [address] [place] [address] Oziel Carrington MD [address] [place] [address] 10/07/2024 2:30 PM EDT Office Visit 2nd Floor [facility] [address]240 [facility] 330 [facility] 2nd floor room 240 [place] [address] Felipe Bishop, CYNDY 330 [place] [address] 10/22/2024 11:00 AM EDT Appointment [facility] 330 [place] [address] [phone] John West MD [address] [place] [address] [place] [address] 11/03/2024 3:00 PM EDT Office Visit [facility] 725 [facility], [address] [place] [address] John West MD [address] [place] [address] documented as of this encounter Visit Diagnoses [...] documented as of this encounter Care Teams Medical Claims Examiner Relationship Specialty Start Date End Date Oziel Carrington MD [address] [place] [address] PCP - General Internal Medicine 10/19/22 documented as of this encounter
--- OUTSIDE RECORDS SUMMARY | 2024-06-26 20:15 | XMS_ITS | Encounter Summary ---
Author Organization [facility] Address 330 [facility] [place] [address] Care Team Providers Care Innersole Fitter Name Role Phone Oziel Carrington MD Primary Care Provider +1- [phone] Encounter Details Date Type Department Care Team (Late st Contact Info) Description 05/17/2021 Billing Encounter [facility] Main Lab 330 [place] [phone] Genevieve Cheung MD 725 [facility], [address] [place] [address] Social History Tobacco Use Types Packs/Day Years [...] have Coronavirus / COVID-19? No / Unsure 05/17/2021 11:11 AM EST documented as of this encounter [...] st Contact Info) Description 06/16/2024 Procedure Pass [facility] 330 [place] [address] [phone] 07/07/2024 1:30 PM EDT Appointment [address] [address] [phone] 09/16/2024 2:00 PM EDT Office Visit [facility] 5 [facility], [address] [place] [address] Oziel Carrington MD [address] [place] [address] [place] [address] 10/07/2024 2:30 PM EDT Office Visit 2nd [facility] [address]240 [facility] 330 [facility] 2nd floor room 240 [place] [address] Felipe Bishop, RD 330 [place] [address] 10/22/2024 11:00 AM EDT Appointment [facility] 330 [place] [address] [phone] John West MD [address] [place] [address] 11/03/2024 3:00 PM EDT Office Visit [facility] [address] [place] [address], [address] [place] [address] John West MD [address] [place] [address] documented as of this encounter Visit Diagnoses [...] documented as of this encounter Care Teams Innersole Fitter Relationship Specialty Start Date End Date Oziel Carrington MD [address] [place] [address] PCP - General Internal Medicine 10/19/22 documented as of this encounter
--- OUTSIDE RECORDS SUMMARY | 2024-06-26 20:15 | XMS_ITS | Encounter Summary ---
Author Organization [facility] Address 330 [facility] [address] Care Team Providers Care Residential Sales Rep Name Role Phone Oziel Carrington MD Primary Care Provider +1- [phone] Encounter Details Date Type Department Care Team (Late st Contact Info) Description 12/14/2022 Telephone [facility] 300 [facility], [address] [place], [place] [phone] Oziel Carrington MD 5 [facility] [address] [place] [address] Social History Tobacco Use Types Packs/Day Years Used Date Smoking Tobacco: Never Smokeless Tobacco: Never Alcohol Use Standard Drinks/Week Comments Never 0 (1 standard drink = 0.6 oz pur e alcohol) Depression Answer Date Recorded Feeling Down, Depressed, or Hopeless 1 10/19/2022 PHQ-9 Total Score 2 10/19/2022 [place] Scale Score: Not on file Sex and Gender Information Value Date Recorded Sex Assigned at Male 07/18/2021 5:48 PM EDT Legal Sex Male 3:32 PM EST Gender Identity Male 07/18/2021 5:48 PM EDT Sexual Orientation Straight 05/21/2024 7 :28 AM EST Occupation Industry Job Start Date [...] encounter Miscellaneous Notes * Telephone Encounter - Aubree Spears RN - 12/18/2022 8:44 PM EDT Addressed by covering SCORER HELPER - * Telephone Encounter - Marie Paiz - 12/14/2022 12:58 PM EDT Patient called to say that he received a nasal spray but he doesn't know how to use it. Please call documented in this encounter Plan of Treatment Upcoming Encounters Date Type Department Care Team (Late st Contact Info) Description 06/16/2024 Procedure Pass [address] [address] [phone] 07/07/2024 1:30 PM EDT Appointment [address] [address] [phone] 09/16/2024 2:00 PM EDT Office Visit [facility] 725 [facility], [address] [place] [address] Oziel Carrington MD 5 [facility] [address] [place] [address] 10/07/2024 2:30 PM EDT Office Visit 2nd [facility] #240 [facility] Nutrition [address] [place] [address] 2nd floor room 240 [place] [address] [place] [address] 10/22/2024 11:00 AM EDT Appointment [address] [address] [phone] John West MD 5 [facility] [address] [place] [address] 11/03/2024 3:00 PM EDT Office Visit [facility] 725 [facility], [address] [place] [address] John West MD [address] [place] [address] documented as of this encounter Visit Diagnoses [...] documented as of this encounter Care Teams Residential Sales Rep Relationship Specialty Start Date End Date Oziel Carrington MD [address] [place] [address] [place] [address] PCP - General Internal Medicine 10/19/22 documented as of this encounter
--- OUTSIDE RECORDS SUMMARY | 2024-06-26 20:15 | XMS_ITS | Encounter Summary ---
Author Organization [facility] Address 330 [facility] [place] [address] Care Team Providers Care Blower Blast Furnace Name Role Phone Oziel Carrington MD Primary Care Provider +1- [phone] Encounter Details Date Type Department Care Team ([facility] Contact Info) Description 08/01/2023 Orders Only [facility] Case Management 330 [place] [address] Sonja Boogie, VALARIE Social History Tobacco Use Types Packs/Day Years Used Date Smoking Tobacco: Never Smokeless Tobacco: Never Alcohol Use Standard Drinks/Week Comments Never 0 (1 standard drink = 0.6 oz pur e alcohol) Depression Answer Date Recorded Feeling Down, Depressed, or Hopeless 1 10/19/2022 PHQ-9 Total Score 2 10/19/2022 [place] Scale Score: Not on file Sex and [...] st Contact Info) Description 06/16/2024 Procedure Pass [facility] 330 [place] [address] [phone] 07/07/2024 1:30 PM EDT Appointment [facility] 330 [place] [address] [phone] 09/16/2024 2:00 PM EDT Office Visit [facility] 725 [facility], [address] [place] [address] Oziel Carrington MD [address] [place] [address] [place] [address] 10/07/2024 2:30 PM EDT Office Visit [address] [place] [address] [address] [facility] [address] floor room 240 [place] [address] Felipe Bishop, CYNDY 330 [place] [address] 10/22/2024 11:00 AM EDT Appointment [facility] DXA 330 [place] [address] [phone] John West MD [address] [place] [address] 11/03/2024 3:00 PM EDT Office Visit [facility] 725 [facility], [address] [place] [address] John West MD [address] [place] [address] documented as of this encounter Visit Diagnoses Not on filedocumented in this encounter Additional Health Concerns Infection Onset Date Last Indicated Resolved Time Highly Infectious Respirator y Virus (Rule Out) 12/13/2023 12/14/2023 12/14/2023 12:49 AM EDT Highly Infectious Respiratory Virus 06/04/202406/0406/16/2024 11:33 AM EST documented as of this encounter Care Teams Blower Blast Furnace Relationship Specialty Start Date End Date Oziel Carrington MD [address] [address] PCP - General Internal Medicine 10/19/22 documented as of this encounter
--- OUTSIDE RECORDS SUMMARY | 2024-06-26 20:15 | XMS_ITS | Encounter Summary ---
Author Organization [facility] Address 330 [place] [address] Care Team Providers Care Bridge Gang Worker Name Role Phone Oziel Carrington MD Primary Care Provider +1- [phone] Encounter Details Date Type Department Care Team (Late st Contact Info) Description 07/30/2023 Scan Document - View in Chart [facility] Department 330 [place] [phone] Provider, MD Boo [address] [place], [place] [address] Social History Tobacco Use Types Packs/Day Years Used Date Smoking Tobacco: Never Smokeless Tobacco: Never Alcohol Use Standard Drinks/Week Comments Never 0 (1 standard drink = 0.6 oz pur e alcohol) Depression Answer Date Recorded Feeling Down, Depressed, or Hopeless 1 10/19/2022 PHQ-9 Total Score 2 10/19/2022 [place] Scale Score: Not on file Sex and [...] 06/16/2024 Procedure Pass [facility] 330 [place] [address] [phone] 07/07/2024 1:30 PM EDT Appointment [facility] 330 [place] [address] [phone] 09/16/2024 2:00 PM EDT Office Visit [facility] 5 [facility], [address] [place] [address] Oziel Carrington MD [address] [place] [address] [place] [address] 10/07/2024 2:30 PM EDT Office Visit 2nd [facility] #240 [facility] 330 [facility] 2nd floor room 240 [place] [address] Felipe Bishop, RD 330 [place] [address] 10/22/2024 11:00 AM EDT Appointment [facility] 330 [place] [address] [phone] John West MD [address] [place] [address] 11/03/2024 3:00 PM EDT Office Visit [facility] [address] [place] [address], [address] [place] [address] John West MD [address] [place] [address] documented as of this encounter Visit Diagnoses Not on filedocumented in this encounter Additional Health Concerns Infection Onset Date Last Indicated Resolved Time Influenza 07/24/2023 07/24/2023 07/31/2023 1:52 AM EDT Highly Infectious Respirator y Virus (Rule Out) 12/13/2023 12/14/2023 12/14/2023 12:49 AM EDT Highly Infectious Respiratory Virus 06/04/202406/0406/16/2024 11:33 AM EST documented as of this encounter Care Teams Bridge Gang Worker Relationship Specialty Start Date End Date Oziel Carrington MD [address] [place] [address] PCP - General Internal Medicine 10/19/22 documented as of this encounter
--- OUTSIDE RECORDS SUMMARY | 2024-06-26 20:15 | XMS_ITS | Clinical Summary ---
Author Organization [facility] Address 800 [facility] [address] [place] [address] Care Team Providers Care Electrocardiographic Technician Name Role Phone Genevieve Cheung MD Primary Care Provider [phone] Social History Tobacco Use Types Packs/Day Years Used Date Smoking Tobacco: Never Assessed Sex and Gender Information Value Date Recorded Sex Assigned at Not on file Gender Identity Not on file Sexual Orientation Not on file Job Start Date Occupation Industry Not on file Not on file Not on file Plan of Treatment Health Maintenance Due Date Last Done Comments Bone Density Scan 1945 Diabetes: Foot Exam 08/16/1955 Diabetes: Retinopathy Screening 08/16/1955 Hepatitis C Screening 08/16/1963 COVID-19 Vaccine ( season) 2023 07/27/2021, 03/03/2021, 07/15/2020, Additional history exists Influenza Vaccine (#1) 2023 , 01/25/2022, 01/25/2022, Additional history exists Depression Screening 04/15/2024 Diabetes: Hemoglobin A1C 06/12/2024 024, 12/14/2023, 10/24/2023, Additional history exists Lipid Panel 12/13/2024 12/14/2023, 0704/2023, 07/04/2023, Additional history exists DTaP/Tdap/Td Vaccines (3 - Td or Tdap) 10/19/2032 10/19/2022, 10/09/2019 Pneumococcal Vaccine: 50+ Years Completed 09/20/2023, 03/15/2015, 07/27/2010 Zoster Vaccines Completed 09/23/2023, 01/18/2023 HIB Vaccines Aged Out No longer eligi ble based on patient's age to complete this topic HPV Vaccines Aged Out No longer eligi ble based on patient's age to complete this topic Hepatitis A Vaccines Aged Out No long er eligible based on patient's age to complete this topic Hepatitis B Vaccines Aged Out No long er eligible based on patient's age to complete this topic IPV Vaccines Aged Out No longer eligi ble based on patient's age to complete this topic Meningococcal B Vaccine Aged Out No l onger eligible based on patient's age to complete this topic Meningococcal Vaccine Aged Out No christal edilberto eligible based on patient's age to complete this topic Rotavirus Vaccines Aged Out No longer eligible based on patient's age to complete this topic Care Teams Electrocardiographic Technician Relationship Specialty Start Date End Date Genevieve Cheung MD 5 [facility], [address] [place] [address] PCP - General 12/24/23
--- OUTSIDE RECORDS SUMMARY | 2024-06-26 20:15 | XMS_ITS | Encounter Summary ---
Author Organization [facility] Address 330 [facility] [facility] [place] [address] Care Team Providers Care Supervisor Home Restoration Service Name Role Phone Oziel Carrington MD Primary Care Provider +1- [phone] Encounter Details Date Type Department Care Team (Late st Contact Info) Description 08/14/2023 Billing Encounter [facility] Main Lab 330 [place] [phone] Starla Hill MD 300 [facility] [address] [place], [place] [phone] Social History Tobacco Use Types Packs/Day Years Used Date Smoking Tobacco: Never Smokeless Tobacco: Never Alcohol Use Standard Drinks/Week Comments Never 0 (1 standard drink = 0.6 oz pur e alcohol) Depression Answer Date Recorded Feeling Down, Depressed, or Hopeless 1 10/19/2022 PHQ-9 Total Score 2 10/19/2022 [place] Scale Score: Not on file Sex and [...] st Contact Info) Description 06/16/2024 Procedure Pass [facility] 330 [place] [address] [phone] 07/07/2024 1:30 PM EDT Appointment [facility] 330 [place] [address] [phone] 09/16/2024 2:00 PM EDT Office Visit [facility] 725 [facility], [address] [place] [address] Oziel Carrington MD [address] [place] [address] 10/07/2024 2:30 PM EDT Office Visit 2nd Floor [facility] [address]240 [facility] 330 [facility] 2nd floor room 240 [place] [address] Felipe Bishop, CYNDY 330 [place] [address] 10/22/2024 11:00 AM EDT Appointment [facility] 330 [place] [address] [phone] John West MD [address] [place] [address] [place] [address] 11/03/2024 3:00 PM EDT Office Visit [facility] 725 [facility], [address] [place] [address] John West MD [address] [place] [address] documented as of this encounter Visit Diagnoses Not on filedocumented in this encounter Additional Health Concerns Infection Onset Date Last Indicated Resolved Time Highly Infectious Respirator y Virus (Rule Out) 12/13/2023 12/14/2023 12/14/2023 12:49 AM EDT Highly Infectious Respiratory Virus 06/04/202406/0406/16/2024 11:33 AM EST documented as of this encounter Care Teams Supervisor Home Restoration Service Relationship Specialty Start Date End Date Oziel Carrington MD [address] [place], [place] [phone] PCP - General Internal Medicine 10/19/22 documented as of this encounter
--- OUTSIDE RECORDS SUMMARY | 2024-06-26 20:15 | XMS_ITS | Encounter Summary ---
Author Organization [facility] Address 330 [facility] [place] [address] Care Team Providers Care Utility Plant Operative Name Role Phone Oziel Carrington MD Primary Care Provider +1- [phone] Encounter Details Date Type Department Care Team (Late Contact Info) Description 03/30/2022 Procedure Pass [facility] 330 [place] [address] Social History Tobacco Use Types Packs/Day Years [...] Procedure Pass [facility] MRI 330 [place] [address] [phone] 07/07/2024 1:30 PM EDT Appointment [facility] 330 [place] [address] [phone] 09/16/2024 2:00 PM EDT Office Visit [facility] [address] [facility], [address] [place] [address] Oziel Carrington MD [address] [place] [address] [place] [address] 10/07/2024 2:30 PM EDT Office Visit [address] [place] [address] [address] [facility] 330 [facility] 2nd floor room 240 [place] [address] Felipe Bishop, CYNDY 330 [place] [address] 10/22/2024 11:00 AM EDT Appointment [facility]XA 330 [place] [address] [phone] John West MD [address] [place] [address] 11/03/2024 3:00 PM EDT Office Visit [facility], [address] [place] [address] John West MD [address] [place] [address] documented as of this encounter Visit Diagnoses [...] documented as of this encounter Care Teams Utility Plant Operative Relationship Specialty Start Date End Date Oziel Carrington MD 5 [place] [address] PCP - General Internal Medicine 10/19/22 documented as of this encounter
--- OUTSIDE RECORDS SUMMARY | 2024-06-26 20:15 | XMS_ITS | Encounter Summary ---
Author Organization [facility] Address 330 [place] [address] Care Team Providers Care Form Maker Plaster Name Role Phone Oziel Carrington MD Primary Care Provider +1- [phone] Encounter Details Date Type Department Care Team (Late st Contact Info) Description 07/30/2023 Scan Document - View in Chart [facility] Department 330 [place] [phone] Provider, MD Boo [address] [place], [place] [address] Social History Tobacco Use Types Packs/Day Years Used Date Smoking Tobacco: Never Smokeless Tobacco: Never Alcohol Use Standard Drinks/Week Comments Never 0 (1 standard drink = 0.6 oz pur e alcohol) Depression Answer Date Recorded Feeling Down, Depressed, or Hopeless 1 10/19/2022 PHQ-9 Total Score 2 10/19/2022 [place] Scale Score: Not on file Sex and [...] st Contact Info) Description 06/16/2024 Procedure Pass [facility] 330 [place] [address] [phone] 07/07/2024 1:30 PM EDT Appointment [facility] 330 [place] [address] [phone] 09/16/2024 2:00 PM EDT Office Visit [facility] 5 [facility], [address] [place] [address] Oziel Carrington MD [address] [place] [address] [place] [address] 10/07/2024 2:30 PM EDT Office Visit 2nd [facility] [address]240 [facility] 330 [facility] 2nd floor room 240 [place] [address] Felipe Bishop, RD 330 [place] [address] 10/22/2024 11:00 AM EDT Appointment [facility] 330 [place] [address] [phone] John West MD [address] [place] [address] 11/03/2024 3:00 PM EDT Office Visit [facility] [address] [place] [address], [address] [place] [address] John West MD [address] [place] [address] documented as of this encounter Visit Diagnoses Not on filedocumented in this encounter Additional Health Concerns Infection Onset Date Last Indicated Resolved Time Influenza 07/24/2023 07/24/2023 07/31/2023 1:52 AM EDT Highly Infectious Respirator y Virus (Rule Out) 12/13/2023 12/14/2023 12/14/2023 12:49 AM EDT Highly Infectious Respiratory Virus 06/04/202406/0406/16/2024 11:33 AM EST documented as of this encounter Care Teams Form Maker Plaster Relationship Specialty Start Date End Date Oziel Carrington MD [address] [place] [address] PCP - General Internal Medicine 10/19/22 documented as of this encounter
--- OUTSIDE RECORDS SUMMARY | 2024-06-26 20:16 | XMS_ITS | Encounter Summary ---
Author Organization [facility] Address [address] [place] [address] Care Team Providers Care Shell Trim Operator Name Role Phone Oziel Carrington MD Primary Care Provider +1- [phone] Encounter Details Date Type Department Care Team ([facility] Contact Info) Description 12/30/2020 Billing Encounter [facility] 300 [facility]., [address] [place] [address] Liseth Almonte, JUNIOR 625 [facility] [address] [place] [address] Social History Tobacco Use Types Packs/Day Years [...] have Coronavirus / COVID-19? No / Unsure 12/14/2020 11:40 PM EDT documented as of this encounter Plan of Treatment Upcoming Encounters Date Type Department Care Team ([facility] Contact Info) Description 06/16/2024 Procedure Pass [facility] 330 [place] [address] [phone] 07/07/2024 1:30 PM EDT Appointment [facility] 330 [place] [address] [phone] 09/16/2024 2:00 PM EDT Office Visit [facility] 725 [facility], [address] [place] [address] Oziel Carrington MD [address] [place] [address] [place] [address] 10/07/2024 2:30 PM EDT Office Visit [address] [place] [address] [address]240 [facility] [address] floor room 240 [place] [address] Felipe Bishop, CYNDY 330 [place] [address] 10/22/2024 11:00 AM EDT Appointment [facility] DXA 330 [place] [address] [phone] John West MD [address] [place] [address] [place] [address] 11/03/2024 3:00 PM EDT Office Visit [facility] 5 [facility], [address] [place] [address] John West MD [address] [place] [address] [place] [address] documented as of this encounter Visit Diagnoses [...] documented as of this encounter Care Teams Shell Trim Operator Relationship Specialty Start Date End Date Oziel Carrington MD [address] [place] [address] PCP - General Internal Medicine 10/19/22 documented as of this encounter
--- OUTSIDE RECORDS SUMMARY | 2024-06-26 20:16 | XMS_ITS | Encounter Summary ---
Author Organization [facility] Address 330 [facility] [place] [address] Care Team Providers Care Computer Lab Assistant Name Role Phone Oziel Carrington MD Primary Care Provider +1- [phone] Encounter Details Date Type Department Care Team ([facility] Contact Info) Description 01/06/2020 Billing Encounter [facility] Main Lab 330 [place] [address] Shanti Rankin MD 725 [facility], [address] [place], [place] [phone] Social History Tobacco Use Types Packs/Day Years [...] have Coronavirus / COVID-19? No / Unsure 01/06/2020 1:39 PM EDT documented as of this encounter Plan of Treatment Upcoming Encounters Date Type Department Care Team ([facility] Contact Info) Description 06/16/2024 Procedure Pass [facility] MRI 330 [place] [address] [phone] 07/07/2024 1:30 PM EDT Appointment [facility] 330 [place] [address] [phone] 09/16/2024 2:00 PM EDT Office Visit [facility] 725 [facility], [address] [place] [address] Oziel Carrington MD [address] [place] [address] [place] [address] 10/07/2024 2:30 PM EDT Office Visit 2nd Floor [facility] [address]240 [facility] 330 [facility] 2nd floor room 240 [place] [address] Felipe Bishop, CYNDY 330 [place] [address] 10/22/2024 11:00 AM EDT Appointment [facility] 330 [place] [address] [phone] John West MD [address] [place] [address] 11/03/2024 3:00 PM EDT Office Visit [facility] [address] [place] [address], [address] [place] [address] John West MD [address] [place] [address] documented as of this encounter Visit Diagnoses [...] documented as of this encounter Care Teams Computer Lab Assistant Relationship Specialty Start Date End Date Oziel Carrington MD 5 [place] [address] PCP - General Internal Medicine 10/19/22 documented as of this encounter
--- OUTSIDE RECORDS SUMMARY | 2024-06-26 20:16 | XMS_ITS | Encounter Summary ---
Author Organization [facility] Address 330 [facility] [place] [address] Care Team Providers Care Clinical Nursing Professor Name Role Phone Oziel Carrington MD Primary Care Provider +1- [phone] Reason for Visit * Reason Comments Med Refill Encounter Details Date Type Department Care Team (Late st Contact Info) Description 09/24/2021 Refill [facility] 300 [facility], [address] [place] [address] Jesus Melgoza MD 725 [facility] [address] [place] [address] Social History Tobacco Use Types Packs/Day Years [...] suspected to have Coronavirus/COVID-19? No / Unsure 09/27/2021 8:14 AM EDT documented as of this encounter [...] st Contact Info) Description 06/16/2024 Procedure Pass [facility] 330 [place] [address] [phone] 07/07/2024 1:30 PM EDT Appointment [facility] 330 [place] [address] [phone] 09/16/2024 2:00 PM EDT Office Visit [facility] 725 [facility], [address] [place] [address] Oziel Carrington MD [address] [place] [address] [place] [address] 10/07/2024 2:30 PM EDT Office Visit 2nd Floor [facility] [address]240 [facility] 330 [facility] 2nd floor room 240 [place] [address] Felipe Bishop, RD 330 [place] [address] 10/22/2024 11:00 AM EDT Appointment [facility] 330 [place] [address] [phone] John West MD [address] [place] [address] [place] [address] 11/03/2024 3:00 PM EDT Office Visit [facility] 725 [facility], [address] [place] [address] John West MD [address] [place] [address] documented as of this encounter Visit Diagnoses [...] as of this encounter Care Teams Clinical Nursing Professor Relationship Specialty Start Date End Date Oziel Carrington MD [address] [place] [address] PCP - General Internal Medicine 10/19/22 documented as of this encounter
--- OUTSIDE RECORDS SUMMARY | 2024-06-26 20:16 | XMS_ITS | Encounter Summary ---
Author Organization [facility] Address 330 [facility] [place] [address] Care Team Providers Care Data Entry Associate Name Role Phone Oziel Carrington MD Primary Care Provider +1- [phone] Reason for Visit * Reason Comments Med Refill Encounter Details Date Type Department Care Team (Late st Contact Info) Description 09/24/2021 Refill [facility] [address] [place] [address], [address] [place] [address] Shanti Rankin MD [address] [place] [address], [address] [place] [address] Social History Tobacco Use Types Packs/Day Years [...] Telephone Encounter - Courtney Woodard [place] - 09/26/2021 2:17 PM EDT 09/07/21 last visit last written 08/31/21 Dose: 1 tablet Route: oral Frequency: Every other day Dispense Quantity: 45 tablet Refills: 3 ?? documented in this encounter Plan of Treatment Upcoming Encounters Date Type Department Care Team (Late st Contact Info) Description 06/16/2024 Procedure Pass [facility] 330 [place] [address] [phone] 07/07/2024 1:30 PM EDT Appointment [address] [address] [phone] 09/16/2024 2:00 PM EDT Office Visit [facility] 725 [facility], [address] [place] [address] Oziel Carrington MD [address] [place] [address] [place] [address] 10/07/2024 2:30 PM EDT Office Visit 2nd Floor [facility] [address]240 [facility] 330 [facility] 2nd floor room 240 [place] [address] Felipe Bishop, CYNDY 330 [place] [address] 10/22/2024 11:00 AM EDT Appointment [address] [address] [phone] John West MD [address] [place] [address] [place] [address] 11/03/2024 3:00 PM EDT Office Visit [facility] 725 [facility], [address] [place] [address] John West MD 725 [facility] [address] [place] [address] documented as of this encounter Visit Diagnoses [...] documented as of this encounter Care Teams Data Entry Associate Relationship Specialty Start Date End Date Oziel Carrington MD 725 [facility] Suite [facility] [place] [address] PCP - General Internal Medicine 10/19/22 documented as of this encounter
--- OUTSIDE RECORDS SUMMARY | 2024-06-26 20:16 | XMS_ITS | Encounter Summary ---
Author Organization [facility] Address 330 [facility] [address] Care Team Providers Care Morning Show Host Name Role Phone Oziel Carrington MD Primary Care Provider +1- [phone] Encounter Details Date Type Department Care Team ([facility] Contact Info) Description 02/06/2021 Billing Encounter [facility] 300 [facility], [address] [place] [address] Arlin Cabello MD 300 [facility], [address] [place] [address] Social History Tobacco Use Types Packs/Day Years [...] have Coronavirus / COVID-19? No / Unsure 02/02/2021 1:10 AM EDT documented as of this encounter Plan of Treatment Upcoming Encounters Date Type Department Care Team ([facility] Contact Info) Description 06/16/2024 Procedure Pass [facility] 330 [place] [address] [phone] 07/07/2024 1:30 PM EDT Appointment [facility] 330 [place] [address] [phone] 09/16/2024 2:00 PM EDT Office Visit [facility] 725 [facility], [address] [place] [address] Oziel Carrington MD [address] [place] [address] [place] [address] 10/07/2024 2:30 PM EDT Office [facility] Floor [facility] [address] [facility] [address] floor room 240 [place] [address] Felipe Bishop, CYNDY 330 [place] [address] 10/22/2024 11:00 AM EDT Appointment [facility] 330 [place] [address] [phone] John West MD [address] [place] [address] [place] [address] 11/03/2024 3:00 PM EDT Office Visit [facility] 5 [facility], [address] [place] [address] John West MD [address] [place] [address] [place] [address] documented as of this encounter Visit Diagnoses [...] documented as of this encounter Care Teams Morning Show Host Relationship Specialty Start Date End Date Oziel Carrington MD [address] [place] [address] PCP - General Internal Medicine 10/19/22 documented as of this encounter
--- OUTSIDE RECORDS SUMMARY | 2024-06-26 20:16 | XMS_ITS | Encounter Summary ---
Author Organization [facility] Address 330 [facility] [place] [address] Care Team Providers Care Pepper Picker Name Role Phone Oziel Carrington MD Primary Care Provider +1- [phone] Encounter Details Date Type Department Care Team ([facility] Contact Info) Description 02/22/2021 Billing Encounter [facility] 300 [facility], [address] [place] [address] Arlin Cabello MD 300 [facility], [address] [place] [address] Social History Tobacco Use Types Packs/Day Years [...] have Coronavirus / COVID-19? Unable to assess 02/22/2021 2:24 PM EST documented as of this encounter Plan of Treatment Upcoming Encounters Date Type Department Care Team ([facility] Contact Info) Description 06/16/2024 Procedure Pass [facility] 330 [place] [address] [phone] 07/07/2024 1:30 PM EDT Appointment [facility] 330 [place] [address] [phone] 09/16/2024 2:00 PM EDT Office Visit [facility] 725 [facility], [address] [place] [address] Oziel Carrington MD [address] [place] [address] [place] [address] 10/07/2024 2:30 PM EDT Office Visit [address] [place] [address] [address] [facility] [address] floor room 240 [place] [address] Felipe Bishop, CYNDY 330 [place] [address] 10/22/2024 11:00 AM EDT Appointment [facility] 330 [place] [address] [phone] John West MD [address] [place] [address] [place] [address] 11/03/2024 3:00 PM EDT Office Visit [facility] 5 [facility], [address] [place] [address] John West MD [address] [place] [address] [place] [address] documented as of this encounter Visit Diagnoses [...] documented as of this encounter Care Teams Pepper Picker Relationship Specialty Start Date End Date Oziel Carrington MD [address] [place] [address] PCP - General Internal Medicine 10/19/22 documented as of this encounter
--- OUTSIDE RECORDS SUMMARY | 2024-06-26 20:16 | XMS_ITS | Encounter Summary ---
Author Organization [facility] Address 330 [facility] [place] [address] Care Team Providers Care Production Welder Name Role Phone Oziel Carrington MD Primary Care Provider +1- [phone] Encounter Details Date Type Department Care Team ([facility] Contact Info) Description 12/20/2020 Billing Encounter [facility] 300 [facility], [address] [place] [address] Arlin Cabello MD [address] [facility], [address] [place] [address] Social History Tobacco Use Types Packs/Day Years [...] Upcoming Encounters Date Type Department Care Team ([facility] Contact Info) Description 06/16/2024 Procedure Pass [facility] 330 [place] [address] [phone] 07/07/2024 1:30 PM EDT Appointment [facility] 330 [place] [address] [phone] 09/16/2024 2:00 PM EDT Office Visit [facility] 725 [facility], [address] [place] [address] Oziel Carrington MD [address] [place] [address] [place] [address] 10/07/2024 2:30 PM EDT Office Visit [facility] Floor [facility] [address] [facility] [address] floor room 240 [place] [address] Felipe Bishop, CYNDY 330 [place] [address] 10/22/2024 11:00 AM EDT Appointment [facility]XA 330 [place] [address] [phone] John West MD [address] [place] [address] [place] [address] 11/03/2024 3:00 PM EDT Office Visit [facility] 5 [facility], [address] [place] [address] John West MD [address] [place] [address] [place] [address] documented as of this encounter Visit Diagnoses [...] documented as of this encounter Care Teams Production Welder Relationship Specialty Start Date End Date Oziel Carrington MD [address] [place] [address] PCP - General Internal Medicine 10/19/22 documented as of this encounter
--- OUTSIDE RECORDS SUMMARY | 2024-06-26 20:16 | XMS_ITS | Encounter Summary ---
Author Organization [facility] Address [address] [facility] [place] [address] Care Team Providers Care Torch Heater Name Role Phone Oziel Carrington MD Primary Care Provider +1- [phone] Encounter Details Date Type Department Care Team (Late st Contact Info) Description 07/26/2023 Procedure Pass [facility] 330 [place] [phone] Social History Tobacco Use Types Packs/Day Years Used Date Smoking Tobacco: Never Smokeless Tobacco: Never Alcohol Use Standard Drinks/Week Comments Never 0 (1 standard drink = 0.6 oz pur e alcohol) Depression Answer Date Recorded Feeling Down, Depressed, or Hopeless 1 10/19/2022 PHQ-9 Total Score 2 10/19/2022 [place] Scale Score: Not on file Sex and [...] st Contact Info) Description 06/16/2024 Procedure Pass [facility] 330 [place] [address] [phone] 07/07/2024 1:30 PM EDT Appointment [facility] 330 [place] [address] [phone] 09/16/2024 2:00 PM EDT Office Visit [facility] 725 [facility], [address] [place] [address] Oziel Carrington MD [address] [place] [address] [place] [address] 10/07/2024 2:30 PM EDT Office Visit 2nd [facility] [address] [facility] [address] floor room 240 [place] [address] Felipe Bsihop, CYNDY 330 [place] [address] 10/22/2024 11:00 AM EDT Appointment [facility] DXA 330 [place] [address] [phone] John West MD [address] [place] [address] 11/03/2024 3:00 PM EDT Office Visit [facility] [address] [place] [address], [address] [place] [address] John West MD [address] [place] [address] documented as of this encounter Visit Diagnoses Not on filedocumented in this encounter Additional Health Concerns Infection Onset Date Last Indicated Resolved Time Influenza 07/24/2023 07/24/2023 07/31/2023 1:52 AM EDT Highly Infectious Respirator y Virus (Rule Out) 12/13/2023 12/14/2023 12/14/2023 12:49 AM EDT Highly Infectious Respiratory Virus 06/04/202406/0406/16/2024 11:33 AM EST documented as of this encounter Care Teams Torch Heater Relationship Specialty Start Date End Date Oziel Carrington MD [address] [place] [address] PCP - General Internal Medicine 10/19/22 documented as of this encounter
--- OUTSIDE RECORDS SUMMARY | 2024-06-26 20:16 | XMS_ITS | Encounter Summary ---
Author Organization [facility] Address 330 [place] [address] Care Team Providers Care Account Management Specialist Name Role Phone Oziel Carrington MD Primary Care Provider +1- [phone] Encounter Details Date Type Department Care Team ([facility] Contact Info) Description 03/22/2020 Ancillary Orders [facility] X-ray at [address] [place] [address] [place] [phone] Genevieve Cheung MD [address] [place] [address], [address] [place] [address] Social History Tobacco Use Types Packs/Day Years [...] have Coronavirus / COVID-19? No / Unsure 03/22/2020 1:30 PM EST documented as of this encounter Plan of Treatment Upcoming Encounters Date Type Department Care Team ([facility] Contact Info) Description 06/16/2024 Procedure Pass [facility] 330 [place] [address] [phone] 07/07/2024 1:30 PM EDT Appointment [facility] 330 [place] [address] [phone] 09/16/2024 2:00 PM EDT [facility] Visit [facility] [address] [facility], [address] [place] [address] Oziel Carrington MD [address] [place] [address] [place] [address] 10/07/2024 2:30 PM EDT Office Visit [address] [place] [address] [address] [facility] [address] floor room 240 [place] [address] Felipe Bishop, CYNDY 330 [place] [address] 10/22/2024 11:00 AM EDT Appointment [facility] DXA 330 [place] [address] [phone] John West MD [address] [place] [address] [place] [address] 11/03/2024 3:00 PM EDT Office Visit [facility], [address] [place] [address] John West MD [address] [place] [address] [place] [address] documented as of this encounter Visit Diagnoses [...] documented as of this encounter Care Teams Account Management Specialist Relationship Specialty Start Date End Date Oziel Carrington MD [address] [place] [address] PCP - General Internal Medicine 10/19/22 documented as of this encounter
--- OUTSIDE RECORDS SUMMARY | 2024-06-26 20:16 | XMS_ITS | Encounter Summary ---
Author Organization [facility] Address 330 [place] [address] Care Team Providers Care Outsole Rounder Name Role Phone Oziel Carrington MD Primary Care Provider +1- [phone] Encounter Details Date Type Department Care Team (Late st Contact Info) Description 07/30/2023 Scan Document - Other Media [facility] Department 330 [place] [phone] Provider, MD Boo [address] [place] [address] Social History Tobacco Use Types Packs/Day Years Used Date Smoking Tobacco: Never Smokeless Tobacco: Never Alcohol Use Standard Drinks/Week Comments Never 0 (1 standard drink = 0.6 oz pur e alcohol) Depression Answer Date Recorded Feeling Down, Depressed, or Hopeless 1 10/19/2022 PHQ-9 Total Score 2 10/19/2022 [place] Scale Score: Not on file Sex and [...] st Contact Info) Description 06/16/2024 Procedure Pass [facility] 330 [place] [address] [phone] 07/07/2024 1:30 PM EDT Appointment [address] [address] [phone] 09/16/2024 2:00 PM EDT Office Visit [facility] 725 [facility], [address] [place] [address] Oziel Carrington MD [address] [place] [address] [place] [address] 10/07/2024 2:30 PM EDT Office Visit 2nd [facility] [address]240 [facility] 330 [facility] 2nd floor room 240 [place] [address] Felipe Bishop, RD 330 [place] [address] 10/22/2024 11:00 AM EDT Appointment [facility] 330 [place] [address] [phone] John West MD [address] [place] [address] [place] [address] 11/03/2024 3:00 PM EDT Office Visit [facility] 5 [facility], [address] [place] [address] John West MD [address] [place] [address] documented as of this encounter Visit Diagnoses Not on filedocumented in this encounter Additional Health Concerns Infection Onset Date Last Indicated Resolved Time Influenza 07/24/2023 07/24/2023 07/31/2023 1:52 AM EDT Highly Infectious Respirator y Virus (Rule Out) 12/13/2023 12/14/2023 12/14/2023 12:49 AM EDT Highly Infectious Respiratory Virus 06/04/202406/0406/16/2024 11:33 AM EST documented as of this encounter Care Teams Outsole Rounder Relationship Specialty Start Date End Date Oziel Carrington MD [address] [place] [address] PCP - General Internal Medicine 10/19/22 documented as of this encounter
--- OUTSIDE RECORDS SUMMARY | 2024-06-26 20:16 | XMS_ITS | Encounter Summary ---
Author Organization [facility] Address 330 [facility] [place] [address] Care Team Providers Care Operations Supervisor Chemical Cleaning Name Role Phone Oziel Carrington MD Primary Care Provider +1- [phone] Encounter Details Date Type Department Care Team (Late Contact Info) Description 01/25/2017 Billing Encounter [facility] 330 [place] [address] Darwin Mayorga MD [address] [place] [address] Social History Tobacco Use Types Packs/Day Years [...] Type Department Care Team ([facility] Contact Info) Description 06/16/2024 Procedure Pass [facility] MRI 330 [place] [address] [phone] 07/07/2024 1:30 PM EDT Appointment [facility] MRI 330 [place] [address] [phone] 09/16/2024 2:00 PM EDT Office Visit [facility] 725 [facility], [address] [place] [address] Oziel Carrington MD [address] [place] [address] [place] [address] 10/07/2024 2:30 PM EDT Office Visit 2nd Floor [facility] [address]240 [facility] 330 [facility] 2nd floor room 240 [place] [address] Felipe Bishop, CYNDY 330 [place] [address] 10/22/2024 11:00 AM EDT Appointment [facility] 330 [place] [address] [phone] John West MD [address] [place] [address] [place] [address] 11/03/2024 3:00 PM EDT Office Visit [facility] 725 [facility], [address] [place] [address] John Wset MD [address] [place] [address] [place] [address] documented as of this encounter Visit Diagnoses [...] documented as of this encounter Care Teams Operations Supervisor Chemical Cleaning Relationship Specialty Start Date End Date Oziel Carrington MD [address] [place] [address] PCP - General Internal Medicine 10/19/22 documented as of this encounter
--- OUTSIDE RECORDS SUMMARY | 2024-06-26 20:16 | XMS_ITS | Encounter Summary ---
Author Organization [facility] Address 330 [facility] [place] [address] Care Team Providers Care Spike Maker Name Role Phone Oziel Carrington MD Primary Care Provider +1- [phone] Encounter Details Date Type Department Care Team (Late Contact Info) Description 04/05/2017 Billing Encounter [facility] 300 [facility], [address] [place] [address] Arlin Cabello MD 300 [facility], [address] [place] [address] Social History Tobacco Use Types Packs/Day Years [...] Upcoming Encounters Date Type Department Care Team ([facility] Contact Info) Description 06/16/2024 Procedure Pass [facility] MRI 330 [place] [phone] 07/07/2024 1:30 PM EDT Appointment [facility] MRI 330 [place] [address] [phone] 09/16/2024 2:00 PM EDT Office Visit [facility] 725 [facility], [address] [place] [address] Oziel Carrington MD [address] [place] [address] [place] [address] 10/07/2024 2:30 PM EDT Office Visit 2nd Floor [facility] [address]240 [facility] 330 [facility] 2nd floor room 240 [place] [address] Felipe Bishop, CYNDY 330 [place] [address] 10/22/2024 11:00 AM EDT Appointment [facility] 330 [place] [address] [phone] John West MD [address] [place] [address] [place] [address] 11/03/2024 3:00 PM EDT Office Visit [facility] 725 [facility], [address] [place] [address] John West MD [address] [place] [address] [place] [address] documented as of this encounter Visit Diagnoses [...] documented as of this encounter Care Teams Spike Maker Relationship Specialty Start Date End Date Oziel Carrington MD [address] [place] [address] PCP - General Internal Medicine 10/19/22 documented as of this encounter
--- OUTSIDE RECORDS SUMMARY | 2024-06-26 20:16 | XMS_ITS | Encounter Summary ---
Author Organization [facility] Address 330 [facility] [place] [address] Care Team Providers Care Truss Maker Name Role Phone Oziel Carrington MD Primary Care Provider +1- [phone] Encounter Details Date Type Department Care Team (Late st Contact Info) Description 09/07/2021 Billing Encounter [facility] Main Lab 330 [place] [phone] Genevieve Cheung MD 7[address] [facility], [address] [place] [address] Social History Tobacco Use Types Packs/Day Years [...] suspected to have Coronavirus/COVID-19? No / Unsure 09/07/2021 10:37 AM EDT documented as of this encounter [...] st Contact Info) Description 06/16/2024 Procedure Pass [facility] 330 [place] [address] [phone] 07/07/2024 1:30 PM EDT Appointment [facility] 330 [place] [address] [phone] 09/16/2024 2:00 PM EDT Office Visit [facility] [address] [facility], [address] [place] [address] Oziel Carrington MD [address] [place] [address] [place] [address] 10/07/2024 2:30 PM EDT Office Visit 2nd [facility] [address]240 [facility] Nutrition 330 [facility] 2nd floor room 240 [place] [address] Felipe Bishop, CYNDY 330 [place] [address] 10/22/2024 11:00 AM EDT Appointment [facility] 330 [place] [address] [phone] John West MD [address] [place] [address] 11/03/2024 3:00 PM EDT Office Visit [facility] [address] [place] [address], [address] [place] [address] John West MD [address] [place] [address] documented as of this encounter Visit Diagnoses [...] documented as of this encounter Care Teams Truss Maker Relationship Specialty Start Date End Date Oziel Carrington MD [address] [place] [address] PCP - General Internal Medicine 10/19/22 documented as of this encounter
--- OUTSIDE RECORDS SUMMARY | 2024-06-26 20:16 | XMS_ITS | Encounter Summary ---
Author Organization [facility] Address 330 [place] [address] Care Team Providers Care Harness Fitter Name Role Phone Oziel Carrington MD Primary Care Provider +1- [phone] Encounter Details Date Type Department Care Team (Late st Contact Info) Description 07/30/2023 Scan Document - Other Media [facility] Department 330 [place] [phone] Provider, MD Boo [address] [place] [address] Social History Tobacco Use Types Packs/Day Years Used Date Smoking Tobacco: Never Smokeless Tobacco: Never Alcohol Use Standard Drinks/Week Comments Never 0 (1 standard drink = 0.6 oz pur e alcohol) Depression Answer Date Recorded Feeling Down, Depressed, or Hopeless 1 10/19/2022 PHQ-9 Total Score 2 10/19/2022 [place] Scale Score: Not on file Sex and [...] st Contact Info) Description 06/16/2024 Procedure Pass [facility] 330 [place] [address] [phone] 07/07/2024 1:30 PM EDT Appointment [address] [address] [phone] 09/16/2024 2:00 PM EDT Office Visit [facility] 725 [facility], [address] [place] [address] Oziel Carrington MD [address] [place] [address] [place] [address] 10/07/2024 2:30 PM EDT Office Visit 2nd [facility] [address]240 [facility] 330 [facility] 2nd floor room 240 [place] [address] Felipe Bishop, RD 330 [place] [address] 10/22/2024 11:00 AM EDT Appointment [facility] 330 [place] [address] [phone] John West MD [address] [place] [address] [place] [address] 11/03/2024 3:00 PM EDT Office Visit [facility] 5 [facility], [address] [place] [address] John West MD [address] [place] [address] documented as of this encounter Visit Diagnoses Not on filedocumented in this encounter Additional Health Concerns Infection Onset Date Last Indicated Resolved Time Influenza 07/24/2023 07/24/2023 07/31/2023 1:52 AM EDT Highly Infectious Respirator y Virus (Rule Out) 12/13/2023 12/14/2023 12/14/2023 12:49 AM EDT Highly Infectious Respiratory Virus 06/04/202406/0406/16/2024 11:33 AM EST documented as of this encounter Care Teams Harness Fitter Relationship Specialty Start Date End Date Oziel Carrington MD [address] [place] [address] PCP - General Internal Medicine 10/19/22 documented as of this encounter
--- OUTSIDE RECORDS SUMMARY | 2024-06-26 20:16 | XMS_ITS | Encounter Summary ---
Author Organization [facility] Address 330 [facility] [place] [address] Care Team Providers Care Carbon Grinder Name Role Phone Oziel Carrington MD Primary Care Provider +1- [phone] Encounter Details Date Type Department Care Team (Late Contact Info) Description 01/10/2017 Ancillary Orders [address], [address] [place] [address] Genevieve Chenug MD [address] [place] [address], [address] [place] [address] Social History Tobacco Use Types Packs/Day Years [...] (Late Contact Info) Description 06/16/2024 Procedure Pass [facility] MRI 330 [place] [address] [phone] 07/07/2024 1:30 PM EDT Appointment [facility] MRI 330 [place] [address] [phone] 09/16/2024 2:00 PM EDT Office Visit [facility] 725 [facility], [address] [place] [address] Oziel Carrington MD [address] [place] [address] [place] [address] 10/07/2024 2:30 PM EDT Office Visit 2nd Floor [facility] [address]240 [facility] 330 [facility] 2nd floor room 240 [place] [address] Felipe Bishop, CYNDY 330 [place] [address] 10/22/2024 11:00 AM EDT Appointment [facility] 330 [place] [address] [phone] John West MD [address] [place] [address] [place] [address] 11/03/2024 3:00 PM EDT Office Visit [facility] 725 [facility], [address] [place] [address] John West MD [address] [place] [address] [place] [address] documented as of this encounter Visit Diagnoses [...] documented as of this encounter Care Teams Carbon Grinder Relationship Specialty Start Date End Date Oziel Carrington MD [address] [place] [address] PCP - General Internal Medicine 10/19/22 documented as of this encounter
--- OUTSIDE RECORDS SUMMARY | 2024-06-26 20:16 | XMS_ITS | Encounter Summary ---
Author Organization [facility] Address 330 [facility] [place] [address] Care Team Providers Care Change Management Consultant Name Role Phone Oziel Carrington MD Primary Care Provider +1- [phone] Encounter Details Date Type Department Care Team (Late Contact Info) Description 04/11/2017 Billing Encounter [facility] 300 [facility] [address] [place] [address] Sophie Block, JUNIOR 300 [facility] [address] [place] [address] Social History Tobacco Use Types Packs/Day Years [...] (Late Contact Info) Description 06/16/2024 Procedure Pass [facility] MRI 330 [place] [address] [phone] 07/07/2024 1:30 PM EDT Appointment [facility] 330 [place] [address] [phone] 09/16/2024 2:00 PM EDT Office Visit [facility] 725 [facility], [address] [place] [address] Oziel Carrington MD [address] [place] [address] [place] [address] 10/07/2024 2:30 PM EDT Office Visit 2nd Floor [facility] [address]240 [facility] Nutrition 330 [facility] 2nd floor room 240 [place] [address] Felipe Bishop, CYNDY 330 [place] [address] 10/22/2024 11:00 AM EDT Appointment [facility] 330 [place] [address] [phone] John West MD [address] [place] [address] [place] [address] 11/03/2024 3:00 PM EDT Office Visit [facility] 725 [facility], [address] [place] [address] John West MD [address] [place] [address] [place] [address] documented as of this encounter Visit Diagnoses [...] documented as of this encounter Care Teams Change Management Consultant Relationship Specialty Start Date End Date Oziel Carrington MD [address] [place] [address] PCP - General Internal Medicine 10/19/22 documented as of this encounter
--- OUTSIDE RECORDS SUMMARY | 2024-06-26 20:16 | XMS_ITS | Encounter Summary ---
Author Organization [facility] Address 330 [facility] [place] [address] Care Team Providers Care Metal Engraver Name Role Phone Oziel Carrington MD Primary Care Provider +1- [phone] Encounter Details Date Type Department Care Team ([facility] Contact Info) Description 03/01/2021 Billing Encounter [facility] 300 [facility], [address] [place] [address] Arlin Cabello MD 300 [facility], [address] [place] [address] Social History Tobacco Use Types Packs/Day Years [...] Upcoming Encounters Date Type Department Care Team ([facility] Contact Info) Description 06/16/2024 Procedure Pass [facility] 330 [place] [address] [phone] 07/07/2024 1:30 PM EDT Appointment [facility] 330 [place] [address] [phone] 09/16/2024 2:00 PM EDT Office Visit [facility] 725 [facility], [address] [place] [address] Oziel Carrington MD [address] [place] [address] [place] [address] 10/07/2024 2:30 PM EDT Office Visit [address] [place] [address] [address] [facility] [address] floor room 240 [place] [address] Felipe Bishop, CYNDY 330 [place] [address] 10/22/2024 11:00 AM EDT Appointment [facility] 330 [place] [address] [phone] John West MD [address] [place] [address] [place] [address] 11/03/2024 3:00 PM EDT Office Visit [facility] 5 [facility], [address] [place] [address] John West MD [address] [place] [address] [place] [address] documented as of this encounter Visit Diagnoses [...] documented as of this encounter Care Teams Metal Engraver Relationship Specialty Start Date End Date Oziel Carrington MD [address] [place] [address] PCP - General Internal Medicine 10/19/22 documented as of this encounter
--- OUTSIDE RECORDS SUMMARY | 2024-06-26 20:16 | XMS_ITS | Encounter Summary ---
Author Organization [facility] Address 330 [facility] [place] [address] Care Team Providers Care Road Equipment Operator Name Role Phone Oziel Carrington MD Primary Care Provider +1- [phone] Encounter Details Date Type Department Care Team (Late Contact Info) Description 01/10/2017 Billing Encounter [facility] 330 [place] [address] Genevieve Cheung MD [address] [facility], [address] [place] [address] Social History Tobacco Use Types Packs/Day Years [...] (Late Contact Info) Description 06/16/2024 Procedure Pass [facility] 330 [place] [address] [phone] 07/07/2024 1:30 PM EDT Appointment [facility] 330 [place] [phone] 09/16/2024 2:00 PM EDT Office Visit [facility] [address] [facility], [address] [place] [address] Oziel Carrington MD [address] [place] [address] [place] [address] 10/07/2024 2:30 PM EDT Office Visit 2nd Floor [facility] [facility] 330 [facility] 2nd floor room 240 [place] [address] Felipe Bishop, CYNDY 330 [place] [address] 10/22/2024 11:00 AM EDT Appointment [facility] 330 [place] [address] x5771 John West MD [address] [place] [address] [place] [address] 11/03/2024 3:00 PM EDT Office Visit [facility] [address] [facility], [address] [place] [address] John West MD [address] [place] [address] [place] [address] documented as of this encounter Visit Diagnoses [...] documented as of this encounter Care Teams Road Equipment Operator Relationship Specialty Start Date End Date Oziel Carrington MD [address] [place] [address] PCP - General Internal Medicine 10/19/22 documented as of this encounter
--- OUTSIDE RECORDS SUMMARY | 2024-06-26 20:16 | XMS_ITS | Encounter Summary ---
Author Organization [facility] Address 330 [facility] [place] [address] Care Team Providers Care Sports Medicine Coordinator Name Role Phone Oziel Carrington MD Primary Care Provider +1- [phone] Encounter Details Date Type Department Care Team (Late st Contact Info) Description 06/11/2016 Scan Document - Othe r Media [facility] [address] [place] [address], [address] [place] [address] Genevieve Cheung MD [address] [place] [address], [address] [place] [address] Social History Tobacco Use Types Packs/Day Years Used Date Smoking Tobacco: Never Sex and Gender Information Value Date Recorded Sex Assigned at Male 07/18/2021 5:48 PM EDT Legal Sex Male 3:32 PM EST Gender Identity Male 07/18/2021 5:48 PM EDT Sexual Orientation Straight 05/21/2024 7: 28 AM EST documented as of this encounter Plan of Treatment Upcoming Encounters Date Type Department Care Team (Late st Contact Info) Description 06/16/2024 Procedure Pass [facility] MRI 330 [place] [address] [phone] 07/07/2024 1:30 PM EDT Appointment [facility] MRI 330 [place] [address] [phone] 09/16/2024 2:00 PM EDT Office Visit [facility] 7[address] [facility], [address] [place] [address] Oziel Carrington MD [address] [place] [address] [place] [address] 10/07/2024 2:30 PM EDT Office Visit 2nd Floor [facility] [facility] Nutrition 330 [facility] 2nd floor room 240 [place] [address] Felipe Bishop, CYNDY 330 [place] [address] 10/22/2024 11:00 AM EDT Appointment [facility] 330 [place] [address] [phone] John West MD [address] [place] [address] [place] [address] 11/03/2024 3:00 PM EDT Office Visit [facility] 7[address] [facility], [address] [place] [address] John West MD [address] [place] [address] [place] [address] documented as of this encounter Visit Diagnoses [...] documented as of this encounter Care Teams Sports Medicine Coordinator Relationship Specialty Start Date End Date Oziel Carrington MD [address] [place] [address] PCP - General Internal Medicine 10/19/22 documented as of this encounter
--- OUTSIDE RECORDS SUMMARY | 2024-06-26 20:16 | XMS_ITS | Encounter Summary ---
Author Organization [facility] Address 330 [place] [address] Care Team Providers Care Reactor Kettle Operator Name Role Phone Oziel Carrington MD Primary Care Provider +1- [phone] Encounter Details Date Type Department Care Team (Late st Contact Info) Description 07/30/2023 Scan Document - Other Media [facility] Department 330 [place] [address] Provider, MD Boo [address] [place] [address] Social History Tobacco Use Types Packs/Day Years Used Date Smoking Tobacco: Never Smokeless Tobacco: Never Alcohol Use Standard Drinks/Week Comments Never 0 (1 standard drink = 0.6 oz pur e alcohol) Depression Answer Date Recorded Feeling Down, Depressed, or Hopeless 1 10/19/2022 PHQ-9 Total Score 2 10/19/2022 [place] Scale Score: Not on file Sex and [...] st Contact Info) Description 06/16/2024 Procedure Pass [facility] 330 [place] [address] [phone] 07/07/2024 1:30 PM EDT Appointment [address] [address] [phone] 09/16/2024 2:00 PM EDT Office Visit [facility] 725 [facility], [address] [place] [address] Oziel Carrington MD [address] [place] [address] [place] [address] 10/07/2024 2:30 PM EDT Office Visit 2nd [facility]240 [facility] 330 [facility] 2nd floor room 240 [place] [address] Felipe Bishop, RD 330 [place] [address] 10/22/2024 11:00 AM EDT Appointment [facility] 330 [place] [address] [phone] John West MD [address] [place] [address] [place] [address] 11/03/2024 3:00 PM EDT Office Visit [facility] 5 [facility], [address] [place] [address] John West MD [address] [place] [address] documented as of this encounter Visit Diagnoses Not on filedocumented in this encounter Additional Health Concerns Infection Onset Date Last Indicated Resolved Time Influenza 07/24/2023 07/24/2023 07/31/2023 1:52 AM EDT Highly Infectious Respirator y Virus (Rule Out) 12/13/2023 12/14/2023 12/14/2023 12:49 AM EDT Highly Infectious Respiratory Virus 06/04/202406/0406/16/2024 11:33 AM EST documented as of this encounter Care Teams Reactor Kettle Operator Relationship Specialty Start Date End Date Oziel Carrington MD [address] [place] [address] PCP - General Internal Medicine 10/19/22 documented as of this encounter
--- OUTSIDE RECORDS SUMMARY | 2024-06-26 20:16 | XMS_ITS | Encounter Summary ---
Author Organization [facility] Address 330 [facility] [place] [address] Care Team Providers Care Soil Surveyor Name Role Phone Oziel Carrington MD Primary Care Provider +1- [phone] Encounter Details Date Type Department Care Team ([facility] Contact Info) Description 12/15/2020 Procedure Pass [facility] 330 [place] [address] Social History Tobacco Use Types Packs/Day Years [...] Upcoming Encounters Date Type Department Care Team ([facility] Contact Info) Description 06/16/2024 Procedure Pass [facility] MRI 330 [place] [address] [phone] 07/07/2024 1:30 PM EDT Appointment [facility] 330 [place] [address] [phone] 09/16/2024 2:00 PM EDT Office Visit [facility] 7[address] [facility], [address] [place] [address] Oziel Carrington MD [address] [place] [address] [place] [address] 10/07/2024 2:30 PM EDT Office Visit 2nd Floor [facility]240 [facility] Nutrition 330 [facility] 2nd floor room 240 [place] [address] Felipe iBshop, CYNDY 330 [place] [address] 10/22/2024 11:00 AM EDT Appointment [facility] 330 [place] [address] [phone] John West MD [address] [place] [address] [place] [address] 11/03/2024 3:00 PM EDT Office Visit [facility] 725 [facility], [address] [place] [address] John West MD [address] [place] [address] [place] [address] documented as of this encounter Visit Diagnoses [...] documented as of this encounter Care Teams Soil Surveyor Relationship Specialty Start Date End Date Oziel Carrington MD [address] [place] [address] [address] PCP - General Internal Medicine 10/19/22 documented as of this encounter
--- OUTSIDE RECORDS SUMMARY | 2024-06-26 20:16 | XMS_ITS | Encounter Summary ---
Author Organization [facility] Address 330 [facility] [place] [address] Care Team Providers Care Melt Down Furnace Operator Name Role Phone Oziel Carrington MD Primary Care Provider +1- [phone] Encounter Details Date Type Department Care Team (Late Contact Info) Description 01/24/2021 Billing Encounter [facility] [address] [facility] [place] [address] [place] [address] Social History Tobacco Use Types Packs/Day Years [...] (Late Contact Info) Description 06/16/2024 Procedure Pass [facility] MRI 330 [place] [address] [phone] 07/07/2024 1:30 PM EDT Appointment [facility] 330 [place] [address] [phone] 09/16/2024 2:00 PM EDT Office Visit [facility] 725 [facility], [address] [place] [address] Oziel Carrington MD [address] [place] [address] [place] [address] 10/07/2024 2:30 PM EDT Office Visit 2nd Floor [facility]240 [facility] 330 [facility] 2nd floor room 240 [place] [address] Felipe Bishop, CYNDY 330 [place] [address] 10/22/2024 11:00 AM EDT Appointment [facility] 330 [place] [address] [phone] John West MD [address] [place] [address] [place] [address] 11/03/2024 3:00 PM EDT Office Visit [facility] 7[address] [facility], [address] [place] [address] John West MD [address] [place] [address] [place] [address] documented as of this encounter Visit Diagnoses [...] documented as of this encounter Care Teams Melt Down Furnace Operator Relationship Specialty Start Date End Date Oziel Carrington MD [address] [place] [address] PCP - General Internal Medicine 10/19/22 documented as of this encounter
--- OUTSIDE RECORDS SUMMARY | 2024-06-26 20:16 | XMS_ITS | Encounter Summary ---
Author Organization [facility] Address 330 [facility] [place] [address] Care Team Providers Care Bridge Operator Slip Name Role Phone Oziel Carrington MD Primary Care Provider +1- [phone] Encounter Details Date Type Department Care Team (Late Contact Info) Description 01/18/2021 Billing Encounter [facility] 300 [facility], [address] [place] [address] Arlin Cabello MD 300 [facility], [address] [place] [address] Social History Tobacco Use Types Packs/Day Years [...] System Contact Info) Description 06/16/2024 Procedure Pass [facility] 330 [place] [address] [phone] 07/07/2024 1:30 PM EDT Appointment [facility] 330 [place] [address] [phone] 09/16/2024 2:00 PM EDT Office Visit [facility] 725 [facility], [address] [place] [address] Oziel Carrington MD [address] [place] [address] [place] [address] 10/07/2024 2:30 PM EDT Office Visit 2nd Floor [facility]240 [facility] 330 [facility] 2nd floor room 240 [place] [address] Felipe Bishop, CYNDY 330 [place] [address] 10/22/2024 11:00 AM EDT Appointment [facility] 330 [place] [address] [phone] John West MD [address] [place] [address] [place] [address] 11/03/2024 3:00 PM EDT Office Visit [facility] 725 [facility], [address] [place] [address] John West MD [address] [place] [address] [place] [address] documented as of this encounter Visit Diagnoses [...] as of this encounter Care Teams Bridge Operator Slip Relationship Specialty Start Date End Date Oziel Carrington MD [address] [place] [address] PCP - General Internal Medicine 10/19/22 documented as of this encounter
--- OUTSIDE RECORDS SUMMARY | 2024-06-26 20:16 | XMS_ITS | Encounter Summary ---
Author Organization [facility] Address 330 [facility] [place] [address] Care Team Providers Care Outsole Leveler Name Role Phone Oziel Carrington MD Primary Care Provider +1- [phone] Encounter Details Date Type Department Care Team (Late Contact Info) Description 06/17/2019 Billing Encounter [facility] 330 [place] [address] Genevieve Cheung MD 725 [facility], [address] [place] [address] Social History Tobacco Use Types Packs/Day Years [...] (Late Contact Info) Description 06/16/2024 Procedure Pass [facility] MRI 330 [place] [address] [phone] 07/07/2024 1:30 PM EDT Appointment [facility] 330 [place] [address] [phone] 09/16/2024 2:00 PM EDT Office Visit [facility] 725 [facility], [address] [place] [address] Oziel Carrington MD [address] [place] [address] [place] [address] 10/07/2024 2:30 PM EDT Office Visit 2nd Floor [facility]240 [facility] [address] [facility] 2nd floor room 240 [place] [address] Felipe Bishop, CYNDY 330 [place] [address] 10/22/2024 11:00 AM EDT Appointment [facility] 330 [place] [address] [phone] John West MD [address] [place] [address] [place] [address] 11/03/2024 3:00 PM EDT Office Visit [facility] 725 [facility], [address] [place] [address] John West MD [address] [place] [address] [place] [address] documented as of this encounter Visit Diagnoses [...] as of this encounter Care Teams Outsole Leveler Relationship Specialty Start Date End Date Oziel Carrington MD [address] [place] [address] PCP - General Internal Medicine 10/19/22 documented as of this encounter
--- OUTSIDE RECORDS SUMMARY | 2024-06-26 20:16 | XMS_ITS | Encounter Summary ---
Author Organization [facility] Address 330 [facility] [place] [address] Care Team Providers Care Clinical Account Specialist Name Role Phone Oziel Carrington MD Primary Care Provider +1- [phone] Reason for Visit * Reason Comments Med Refill Encounter Details Date Type Department Care Team (Late st Contact Info) Description 09/23/2021 Refill [facility] [address] [place] [address], [address] [place] [address] Shanti Rankin MD [address] [place] [address], [address] [place] [address] Social History Tobacco Use Types Packs/Day Years [...] st Contact Info) Description 06/16/2024 Procedure Pass [facility] 330 [place] [address] [phone] 07/07/2024 1:30 PM EDT Appointment [facility] 330 [place] [address] [phone] 09/16/2024 2:00 PM EDT Office [facility] 725 [facility], [address] [place] [address] Oziel Carrington MD [address] [place] [address] [place] [address] 10/07/2024 2:30 PM EDT Office Visit 2nd Floor [facility] [address]240 [facility] Nutrition [address] floor room 240 [place] [address] Felipe Bishop, CYNDY 330 [place] [address] 10/22/2024 11:00 AM EDT Appointment [facility] 330 [place] [address] [phone] John West MD [address] [place] [address] [place] [address] 11/03/2024 3:00 PM EDT Office Visit [facility] 725 [facility], [address] [place] [address] John West MD [address] [place] [address] [place] [address] documented as of this encounter Visit Diagnoses [...] as of this encounter Care Teams Clinical Account Specialist Relationship Specialty Start Date End Date Oziel Carrington MD [address] [place] [address] PCP - General Internal Medicine 10/19/22 documented as of this encounter
--- OUTSIDE RECORDS SUMMARY | 2024-06-26 20:16 | XMS_ITS | Encounter Summary ---
Author Organization [facility] Address 330 [facility] [place] [address] Care Team Providers Care Service Center Representative Name Role Phone Oziel Carrington MD Primary Care Provider +1- [phone] Encounter Details Date Type Department Care Team ([facility] Contact Info) Description 07/30/2023 Orders Only [facility] Case Management 330 [place] [address] Sonja Boogie, VALARIE Social History Tobacco Use Types Packs/Day Years Used Date Smoking Tobacco: Never Smokeless Tobacco: Never Alcohol Use Standard Drinks/Week Comments Never 0 (1 standard drink = 0.6 oz pur e alcohol) Depression Answer Date Recorded Feeling Down, Depressed, or Hopeless 1 10/19/2022 PHQ-9 Total Score 2 10/19/2022 [place] Scale Score: Not on file Sex and [...] st Contact Info) Description 06/16/2024 Procedure Pass [facility] 330 [place] [address] [phone] 07/07/2024 1:30 PM EDT Appointment [facility] 330 [place] [address] [phone] 09/16/2024 2:00 PM EDT Office Visit [facility] 725 [facility], [address] [place] [address] Oziel Carrington MD [address] [place] [address] [place] [address] 10/07/2024 2:30 PM EDT Office Visit [address] [place] [address] [address] [facility] [address] floor room 240 [place] [address] Felipe Bishop, CYNDY 330 [place] [address] 10/22/2024 11:00 AM EDT Appointment [facility] 330 [place] [address] [phone] John West MD [address] [place] [address] 11/03/2024 3:00 PM EDT Office Visit [facility] 5 [facility], [address] [place] [address] John West MD [address] [place] [address] documented as of this encounter Visit Diagnoses Not on filedocumented in this encounter Additional Health Concerns Infection Onset Date Last Indicated Resolved Time Influenza 07/24/2023 07/24/2023 07/31/2023 1:52 AM EDT Highly Infectious Respirator y Virus (Rule Out) 12/13/2023 12/14/2023 12/14/2023 12:49 AM EDT Highly Infectious Respiratory Virus 06/04/202406/0406/16/2024 11:33 AM EST documented as of this encounter Care Teams Service Center Representative Relationship Specialty Start Date End Date Oziel Carrington MD [address] [place] [address] PCP - General Internal Medicine 10/19/22 documented as of this encounter
--- OUTSIDE RECORDS SUMMARY | 2024-06-26 20:16 | XMS_ITS | Encounter Summary ---
Author Organization [facility] Address [address] [facility] [place] [address] Care Team Providers Care Acid Tank Liner Name Role Phone Oziel Carrington MD Primary Care Provider +1- [phone] Reason for Visit * Reason Comments Med Refill Encounter Details Date Type Department Care Team (Late st Contact Info) Description 08/31/2021 Refill MAP [facility] [address] [place] [address], [address] [place] [address] Genevieve Cheung MD 5 [facility], [address] [place] [address] Social History Tobacco Use Types Packs/Day Years [...] Telephone Encounter - Courtney Woodard [place] - 08/31/2021 11:13 AM EDT 08/24/21 last visit documented in this encounter Plan of Treatment Upcoming Encounters Date Type Department Care Team (Late st Contact Info) Description 06/16/2024 Procedure Pass [facility] 330 [place] [address] [phone] 07/07/2024 1:30 PM EDT Appointment [facility] 330 [place] [address] [phone] 09/16/2024 2:00 PM EDT Office Visit [facility] [address] [place] [address], [address] [place] [address] Oziel Carrington MD [address] [place] [address] [place] [address] 10/07/2024 2:30 PM EDT Office Visit 2nd Floor [facility] [address]240 [facility] 330 [facility] 2nd floor room 240 [place] [address] Felipe Bishop, CYNDY 330 [place] [address] 10/22/2024 11:00 AM EDT Appointment [facility] 330 [place] [address] [phone] John West MD [address] [place] [address] [place] [address] 11/03/2024 3:00 PM EDT Office Visit [facility] 5 [facility], [address] [place] [address] John West MD [address] [place] [address] [place] [address] documented as of this encounter Visit Diagnoses [...] documented as of this encounter Care Teams Acid Tank Liner Relationship Specialty Start Date End Date Oziel Carrington MD [address] [place] [address] PCP - General Internal Medicine 10/19/22 documented as of this encounter
--- OUTSIDE RECORDS SUMMARY | 2024-06-26 20:16 | XMS_ITS | Encounter Summary ---
Author Organization [facility] Address [address] [facility] [place] [address] Care Team Providers Care Autoclave Operator Name Role Phone Oziel Carrington MD Primary Care Provider +1- [phone] Encounter Details Date Type Department Care Team ([facility] Contact Info) Description 03/06/2021 Billing Encounter [facility] [address] [facility] [place] [address] Liseth Almonte, JUNIOR [address] [facility] [address] [place] [address] Social History Tobacco Use Types Packs/Day Years [...] Upcoming Encounters Date Type Department Care Team ([facility] Contact Info) Description 06/16/2024 Procedure Pass [facility] [address] [place] [address] [phone] 07/07/2024 1:30 PM EDT Appointment [facility] [address] [place] [address] [phone] 09/16/2024 2:00 PM EDT Office Visit [facility] [address] [facility], [address] [place] [phone] Oziel Carrington MD [address] [place] [address] [place] [address] 10/07/2024 2:30 PM EDT Office Visit [address] [place] [address] [address] [facility] 330 [facility] 2nd floor room 240 [place] [address] Felipe Bishop, CYNDY [address] [place] [address] 10/22/2024 11:00 AM EDT Appointment [facility] 330 [place] [address] [phone] John West MD [address] [place] [address] [place] [address] 11/03/2024 3:00 PM EDT Office Visit [facility] [address] [facility], [address] [place] [address] John West MD [address] [place] [address] [place] [address] documented as of this encounter Visit Diagnoses [...] documented as of this encounter Care Teams Autoclave Operator Relationship Specialty Start Date End Date Oziel Carrington MD [address] [place] [phone] PCP - General Internal Medicine 10/19/22 documented as of this encounter
--- OUTSIDE RECORDS SUMMARY | 2024-06-26 20:16 | XMS_ITS | Encounter Summary ---
Author Organization [facility] Address [address] [facility] [place] [address] Care Team Providers Care Cloth Washer Operator Name Role Phone Oziel Carrington MD Primary Care Provider +1- [phone] Encounter Details Date Type Department Care Team (Late Contact Info) Description 04/04/2017 Billing Encounter [facility] [address] [facility] [place] [address] Sophie Block, JUNIOR 300 [facility] [address] [place] [address] Social History Tobacco Use Types Packs/Day Years [...] (Late Contact Info) Description 06/16/2024 Procedure Pass [facility] [address] [place] [address] [phone] 07/07/2024 1:30 PM EDT Appointment [facility] [address] [place] [address] [phone] 09/16/2024 2:00 PM EDT Office Visit [facility] [address] [facility], [address] [place] [address] Oziel Carrington MD [address] [place] [address] [place] [address] 10/07/2024 2:30 PM EDT Office Visit 2nd Floor [facility] [address] [facility] 330 [facility] 2nd floor room 240 [place] [address] Felipe Bishop, CYNDY [address] [place] [address] 10/22/2024 11:00 AM EDT Appointment [facility] 330 [place] [address] [phone] John West MD [address] [place] [address] [place] [address] 11/03/2024 3:00 PM EDT Office Visit [facility] [address] [facility], [address] [place] [address] John West MD [address] [place] [address] [place] [address] documented as of this encounter Visit Diagnoses [...] documented as of this encounter Care Teams Cloth Washer Operator Relationship Specialty Start Date End Date Oziel Carrington MD [address] [place] [address] PCP - General Internal Medicine 10/19/22 documented as of this encounter
--- OUTSIDE RECORDS SUMMARY | 2024-06-26 20:16 | XMS_ITS | Encounter Summary ---
Author Organization [facility] Address [address] [facility] [place] [address] Care Team Providers Care Legend Maker Name Role Phone Oziel Carrington MD Primary Care Provider +1- [phone] Encounter Details Date Type Department Care Team ([facility] Contact Info) Description 01/04/2021 Billing Encounter [facility] 300 [facility], [address] [place] [address] Arlin Cabello MD 300 [facility], [address] [place] [address] Social History Tobacco Use Types Packs/Day Years [...] Upcoming Encounters Date Type Department Care Team ([facility] Contact Info) Description 06/16/2024 Procedure Pass [facility] 330 [place] [address] [phone] 07/07/2024 1:30 PM EDT Appointment [facility] 330 [place] [address] [phone] 09/16/2024 2:00 PM EDT Office Visit [facility] [address] [facility], [address] [place] [address] Oziel Carrington MD [address] [place] [address] [place] [address] 10/07/2024 2:30 PM EDT [facility] Floor [facility] [address] [facility] [address] floor room 240 [place] [address] Felipe Bishop, CYNDY 330 [place] [address] 10/22/2024 11:00 AM EDT Appointment [facility] 330 [place] [address] [phone] John West MD [address] [place] [address] [place] [address] 11/03/2024 3:00 PM EDT Office Visit [facility] 5 [facility], [address] [place] [address] John West MD [address] [place] [address] [place] [address] documented as of this encounter Visit Diagnoses [...] documented as of this encounter Care Teams Legend Maker Relationship Specialty Start Date End Date Oziel Carrington MD [address] [place] [address] PCP - General Internal Medicine 10/19/22 documented as of this encounter
[2024-06-26 20:40] VITALS: BP 154/70; PULSE 55; RESP 16; TEMP 36.9; O2SAT 95
[2024-06-26 21:35] VITALS: BMI 20.2
[2024-06-26] MEDS: Baclofen 10 MG TABLET 5 MG PO (23:31)
[2024-06-26] MEDS: clonazePAM 1 MG TABLET PO (23:32)
[2024-06-26] MEDS: Sodium Chloride Tab 1 GM TABLET PO (23:32)
[2024-06-26] MEDS: QUEtiapine Fumarate 300 MG TABLET PO (23:32)
[2024-06-26] MEDS: Acetaminophen 325 MG TABLET 650 MG PO (23:33)
--- NOTE | 2024-06-27 02:57 | PC.ADMIT ---
Bertha Funez is a 78 years old male with past medical and psychiatric hx of schizoaffective d/o bipolar type, adult failure to thrive, chronic pain, spinal stenosis, IBS, GI bleed, and CKD3. pt presented to [facility] with his HCP/friend for AMS. Pt's friend was with pt having dinner, when pt started to endorse intrusive thoughts of wanting to harm himself and others. Patient arrived to at 2039 via EMS, with admitting diagnosis for schizoaffective d/o. pt is alert and oriented x4, signed CV. Pt is calm and pleasant during 1:1 interaction, complaint with all admission process. skin check completed with no skin issues. pt denied SI/HI/AVH but did endorse he sometime experiences VH, seeing shadows of people around him. pt contracted to safety and reports to seek for the nurse if he is feeling suicidal. pt ambulates with a rollaway, was given hospital standard walker, suction plate roller hand provider notified of pt needing PT consult for clearance to use his own rollaway walker. pt reported his whole left side pain/discomfort which according to pt nothing seems to work to reduce this pain . pt reported he had fallen twice in a couple of weeks ago an thinks that may have been from him sleep walking and also this has contributed to the pain getting worse. pt's VSS, except for low HR, 55 but according to pt, he usually runs low in the 50's. No visible skin issues noted, med. rec. completed.Pt is being observed on 5mins safety check as ordered. Pt's belongings inventoried and secured.Hospitalist consult ordered for medical clearance.
[2024-06-27] MEDS: Omeprazole 20 MG CAPSULE.DR PO (06:30)
[2024-06-27 07:54] LABS: Alanine Aminotransferase 21 U/L (0-40); Albumin Level 3.2 g/dL (3.5-5.0); Anion Gap 9 (12-20); Aspartate Amino Transferase 27 U/L (5-37); Bilirubin Total 0.3 mg/dL (0.0-1.0); Blood Urea Nitrogen 32 mg/dL (9-16); Calcium 8.6 mg/dL (8.4-10.2); Carbon Dioxide 25 mmol/L (22-29); Chloride 112 mmol/L (96-108); Cholesterol 154 mg/dL (<200); Creatinine Clr Calc Pharmacy 51.4; Estimated Glomerular Filt Rate > 60; Glucose Fasting 101 mg/dL (60-99); HDL Cholesterol 57 mg/dL (>40); LDL Cholesterol Calculated 86 mg/dL (<100); Potassium 4.3 mmol/L (3.3-5.1); Sodium 142 mmol/L (135-145); Total Protein 5.7 g/dL (6.5-8.0); Triglycerides 58 mg/dL (<150)
[2024-06-27 08:12] LABS: Alkaline Phosphatase 61 U/L (39-117)
[2024-06-27 08:57] VITALS: BP 137/63; PULSE 53; RESP 17; TEMP 36; O2SAT 97
[2024-06-27] MEDS: Baclofen 10 MG TABLET 5 MG PO ×2 (09:43→22:52)
[2024-06-27] MEDS: Sodium Chloride Tab 1 GM TABLET PO ×2 (09:44→22:52)
--- NOTE | 2024-06-27 10:51 | P.CONHOSP_ITS ---
History of Present Illness Data of Consult Service Date: 06/27/24 Requesting physician: Georgia Serrano Primary Care Provider: Oziel Carrington HPI Reason for consult: medical H&P 78-year-old male with history of overactive bladder, insomnia, osteoporosis, chronic pancytopenia, kyphoscoliosis and scoliosis, spondylosis of the thoracic region, lumbar and sacral osteoarthritis, unsteady gait ambulating with a walker at baseline, schizoaffective disorder bipolar type, constipation, protein calorie malnutrition, lumbar spondylosis, CKD stage 3, GERD, hypercholesterolemia, iron-deficiency anemia due to chronic blood loss, prediabetes, vitamin-D deficiency, intraductal papillary mucinous neoplasm, history of GI bleed 11/2023, malignant neoplastic disease admitted to [facility] from [facility] with consult placed hospitalist service for medical H&P. While in the ED, hematology studies revealed a macrocytic anemia with H/H 10.1/32.2% with MCV 101.9, platelets 147, WBC 3.13. Renal function consistent with CKD stage 3, electrolyte levels within normal limits, glucose 122. Hepatic function within normal limits, protein slightly low at 5.9. Ethyl alcohol level undetectable. Troponin undetectable. EKG shows sinus bradycardia rate 51, incomplete RBBB,PACs bigeminy pattern. Vital signs shows a chronic bradycardia with stable blood pressures. He denies alcohol use or cigarette smoking. Denies any illicit drug use. He is reporting chronic L shoulder pain which he reports requires replacement in the future. The pain radiates to his hand. No weakness of paresthesias. He is using baclofen amd tylenol at home. He is also reporting pain in the LUQ ongoing for weeks. No fevers, chills, n/v/d. He also reports chronic tingling in the R fingertips. He has chronic low back pain and severe kyphoscoliosis. He reports he was told he needs open back surgery. Review of Systems 2 Review of Systems: Constitutional - Awake and Alert, No apparent distress Eyes - PERRLA, EOMI Cardiovascular - S1S2, RRR, No edema Respiratory - Normal lung expansion, Normal respiratory effort, No respiratory distress, CTA bilaterally Gastrointestinal - NT / ND; +BS; No rebound or guarding - No CVA tenderness Extremities - no calf tenderness bilaterally, no swelling Musculoskeletal - see hpi Skin - Warm/Dry Neurological - Alert & oriented x3, CN II-XII in tact, 5/ strength BUE and BLE Psychological - Appropriate affect PMFSH Social History Household Members: None Housing: Apartment Do you presently have visiting nurse or other home services: Yes Patient Tobacco Use Status: Never used Tobacco Use of substances other than those prescribed or required for medical reasons: No Have you been hit, kicked, punched, or otherwise hurt by someone within the past year? If so, by whom?: No Spiritual Healthcare Practices: meditate, pray, sing and walk Advance Directives: No Advance Directives Information Provided: No Do you have a plan to hurt others: No Plan Recently lost weight without trying: No Nutrition Risks: No Nutritional Risk Meds Allergies Allergy/AdvReac Type Severity Reaction Status Date / Time gabapentin Allergy side Verified 06/26/24 21:22 effect/sedation tyramine Allergy Hypertensio Uncoded 06/26/24 21:16 n Active Medications: Current Medications Acetaminophen (Acetaminophen 325 Mg Tablet) 650 mg PO Q6H PRN PRN Reason: Headache/Pain, Scale 1-10 Last Admin: 06/26/24 23:33 Dose: 650 mg Al Hydroxide/Mg Hydroxide (Magnesium Hydrox/Alum Hydrox 30 Ml Oral.Susp) 30 ml PO Q6H PRN PRN Reason: Heartburn/Nausea Baclofen (Baclofen 10 Mg Tablet) 5 mg PO TID [facility] Last Admin: 06/27/24 09:43 Dose: 5 mg Clonazepam (Clonazepam 1 Mg Tablet) 1 mg PO BEDTIME [facility] Last Admin: 06/26/24 23:32 Dose: 1 mg Magnesium Hydroxide (Milk Of Magnesia 30 Ml Oral.Susp) 30 ml PO DAILY PRN PRN Reason: Constipation Non-Formulary Medication (Tranylcypromine) 30 mg PO BID [facility] Omeprazole (Omeprazole 20 Mg Capsule.Dr) 20 mg PO DAILY@0630 [facility] Last Admin: 06/27/24 06:30 Dose: 20 mg Quetiapine Fumarate (Quetiapine Fumarate 300 Mg Tablet) 300 mg PO BEDTIME [facility] Last Admin: 06/26/24 23:32 Dose: 300 mg Senna (Sennosides 8.6 Mg Tablet) 17.2 mg PO BEDTIME [facility] Last Admin: 06/26/24 23:39 Dose: Not Given Sodium Chloride (Sodium Chloride Tab 1 Gm Tablet) 1 gm PO TID [facility] Last Admin: 06/27/24 09:44 Dose: 1 gm Trazodone HCl (Trazodone Hcl 50 Mg Tablet) 50 mg PO BEDTIME MRX1 PRN PRN Reason: Insomnia Home Medications ?Medication ?Instructions ?Recorded ?Confirmed ?Last Taken ?Type acetaminophen 500 mg tablet 1,000 mg PO TID 06/26/24 06/26/24 Unknown History baclofen 5 mg tablet 5 mg PO TID 06/26/24 06/26/24 Unknown History clonazepam 1 mg tablet 1 mg PO BEDTIME 06/26/24 06/26/24 Unknown History pantoprazole 40 mg tablet,delayed 40 mg PO DAILY 06/26/24 06/26/24 Unknown History release quetiapine 300 mg tablet 300 mg PO BEDTIME 06/26/24 06/26/24 Unknown History quetiapine 50 mg tablet (Seroquel) 50 mg PO 06/26/24 Unknown History sennosides 8.6 mg tablet (senna) 17.2 mg PO BEDTIME 06/26/24 06/26/24 Unknown History sodium chloride 1,000 mg soluble 1,000 mg PO TID 06/26/24 06/26/24 Unknown History tablet tranylcypromine 10 mg tablet 30 mg PO BID 06/26/24 06/26/24 Unknown History Physical Exam 2 Vital Signs and Narrative: Vital Signs: Last Vital Signs Temp 96.8 F 06/27/24 08:57 Pulse 53 06/27/24 08:57 Resp 17 06/27/24 08:57 BP 137/63 06/27/24 08:57 Pulse Ox 97 06/27/24 08:57 O2 Del Method Room Air 06/27/24 08:57 BMI result Body Mass Index 20.2 Constitutional - Awake and Alert, No apparent distress Eyes - PERRLA, EOMI Cardiovascular - S1S2, RRR, No edema Respiratory - Normal lung expansion, Normal respiratory effort, No respiratory distress, CTA bilaterally Gastrointestinal - LUQ ttp without guarding or rebound, ND; +BS - No CVA tenderness Extremities - no calf tenderness bilaterally, no swelling Musculoskeletal - severe kyphoscoliosis Skin - Warm/Dry Neurological - Alert & oriented x3, CN II-XII in tact, 4/5 strength BUE and BLE Psychological - flat affect Results Labs 06/27/24 07:18 Labs: Laboratory Results - last 24 hr 06/27/24 07:18 Anion Gap 9 L Estim Creat Clear Calc 51.4 Estimated GFR > 60 Fasting Glucose 101 H Calcium 8.6 Total Bilirubin 0.3 AST 27 ALT 21 Alkaline Phosphatase 61 Total Protein 5.7 L Albumin 3.2 L Triglycerides 58 Cholesterol 154 LDL Cholesterol, Calc 86 HDL Cholesterol 57 Assessment and Plan (1) Routine medical exam: Status: Acute Plan 78-year-old male with history of overactive bladder, insomnia, osteoporosis, chronic pancytopenia, kyphoscoliosis and scoliosis, spondylosis of the thoracic region, lumbar and sacral osteoarthritis, unsteady gait ambulating with a walker at baseline, schizoaffective disorder bipolar type, constipation, protein calorie malnutrition, lumbar spondylosis, CKD stage 3, GERD, hypercholesterolemia, iron-deficiency anemia due to chronic blood loss, prediabetes, vitamin-D deficiency, intraductal papillary mucinous neoplasm, history of GI bleed 11/2023, malignant neoplastic disease admitted to [facility] Psych[facility]ry from [facility] with consult placed hospitalist service for medical H&P. #schizoaffective disorder bipolar type -plan per psychiatry #Chronic L shoulder pain -tylenol. baclofen. Add lidocaine ointment #LUQ pain -KUB shows moderate to severe stool burden tranverse and descending colon -continue senna. Add docusate. Milk of Mag p.r.n. -increase water intake #Chronic bradycardia w/ PACs in bigeminy -bp stable, asymptomatic -continue monitoring VS -outpt follow up with cardiology # chronic thoracic/low back pain -see assessment -pain management with tylenol, baclofen, lidocaine ointment # protein calorie malnutrition -recommend nutrition consult # CKD stage 3 # renal function baseline # chronic thrombocytopenia with macrocytic anemia -recommend checking vitamin B12 and folic acid levels # prediabetes -recommend checking hemoglobin A1c #IPMN -outpt follow up Thank you for allowing me to participate in this consult. Signing off at this time. Please do not hesitate to call for further questions.
--- NOTE | 2024-06-27 14:15 | P.HPPS_ITS ---
HPI Date of Service: 06/27/24 Chief Complaint: Schizoaffective disorder Sources of Information: patient interviewed, chart reviewed and crisis/core team assessment reviewed HPI Healthcare Proxy: Yes Narrative: The patient was seen and evaluated at 11:00 case reviewed with pharmacy to try and get the patient's Parnate. The patient is a 78-year-old male lives alone in [facility] referred from the emergency room after a psychiatric evaluation. The patient apparently had been talking with a friend and was talking about having intrusive thoughts of wanting to harm himself and possibly others. The patient had been psychiatrically hospitalized up until couple of weeks ago. Patient was having intrusive thoughts that he deserve to be punished and that God wanted him . There are reportedly chronic auditory hallucinations he has been on Seroquel 300 mg clonazepam 1 mg nightly Protonix 40 mg daily reportedly Seroquel 50 mg in the morning. Patient states the only other med that I being on was Abilify and he has been on Parnate Parnate apparently for many years. Past Psychiatric History: The patient has a long psychiatric history starting in the he is somewhat poor historian he has been hospitalized number of times there is a history a suicide attempt in the past details not able to be elucidated. He does not remember any other psychiatric medication for hallucinations intrusive thoughts besides Seroquel on Abilify Medical Evaluation Reviewed: Yes [facility] Medical History (Updated 06/27/24 @ 23:24 by Anthony Quintanilla MD) Major depression with psychotic features Narrative: Patient has multiple medical problems gait disturbance anemia, bradycardia, spinal and shoulder difficulties, reported recent GI bleed, atrial bigeminy, pancytopenia. Status post recent falls history of meningioma history of vitamin-D deficiency history of malnutrition Social History: The patient lives alone he does have a healthcare proxy not no children no history of alcohol or substance abuse in the past he had worked social work and other positions he does have 1 sibling Substance History: none Trauma History: Unable to assess Diagnostics Vital Signs (24Hr): Vital Signs - 24 hr 06/26/24 20:40 06/27/24 08:57 Temperature 98.4 F 96.8 F Pulse Rate 55 53 Respiratory Rate 16 17 Blood Pressure 154/70 H 137/63 Pulse Oximetry 95 97 Oxygen Delivery Method Room Air Room Air BMI result Body Mass Index 20.2 Labs 06/27/24 07:18 Labs: Laboratory Results - last 48 hr 06/27/24 07:18 Sodium 142 Potassium 4.3 Chloride 112 H Carbon Dioxide 25 Anion Gap 9 L BUN 32 H Creatinine 0.92 Estim Creat Clear Calc 51.4 Estimated GFR > 60 Fasting Glucose 101 H Calcium 8.6 Total Bilirubin 0.3 AST 27 ALT 21 Alkaline Phosphatase 61 Total Protein 5.7 L Albumin 3.2 L Triglycerides 58 Cholesterol 154 LDL Cholesterol, Calc 86 HDL Cholesterol 57 EKG EKG Comment: Bradycardia atrial bigeminy Meds/Allergies Meds Home Medications ?Medication ?Instructions ?Recorded ?Confirmed ?Type acetaminophen 500 mg tablet 1,000 mg PO TID 06/26/24 06/26/24 History baclofen 5 mg tablet 5 mg PO TID 06/26/24 06/26/24 History clonazepam 1 mg tablet 1 mg PO BEDTIME 06/26/24 06/26/24 History pantoprazole 40 mg tablet,delayed 40 mg PO DAILY 06/26/24 06/26/24 History release quetiapine 300 mg tablet 300 mg PO BEDTIME 06/26/24 06/26/24 History quetiapine 50 mg tablet (Seroquel) 50 mg PO 06/26/24 History sennosides 8.6 mg tablet (senna) 17.2 mg PO BEDTIME 06/26/24 06/26/24 History sodium chloride 1,000 mg soluble 1,000 mg PO TID 06/26/24 06/26/24 History tablet tranylcypromine 10 mg tablet 30 mg PO BID 06/26/24 06/26/24 History Allergies Allergies Allergy/AdvReac Type Severity Reaction Status Date / Time gabapentin Allergy side Verified 06/26/24 21:22 effect/sedation tyramine Allergy Hypertensio Uncoded 06/26/24 21:16 n Mental Status Exam Mental Status Exam Narrative: Mental Status Exam Narrative: Appearance: Somewhat disheveled older male sad looking Behavior: Cooperative psychomotor: Some psychomotor retardation Speech: Speech somewhat slowed but clear Thought proccess logical somewhat halting Thought content: Content is on these intrusive thoughts that he feels at times God wants him and has thoughts to kill himself denies plan or intent in this setting vague thoughts of being told to harm others and question delusional guilt patient guarded would not elaborate further Mood: Depressed Affect: Constricted SI: Denies currently HI:denies VH/AH: Intrusive thoughts at times telling him that he is done something terrible Delusions: Question of delusional guilt Insight/judgment: Limited Memory/cog: Assessment & Plan Assessment & Plan (1) Major depression with psychotic features: Status: Acute Code(s): F32.3 - Major depressive disorder, single episode, severe with psychotic features (2) Pancytopenia: Status: Acute Code(s): D61.818 - Other pancytopenia (3) Atrial bigeminy: Status: Acute Code(s): I49.8 - Other specified cardiac arrhythmias (4) Gait disturbance: Status: Acute Code(s): R26.9 - Unspecified abnormalities of gait and mobility Plan Patient has a history chronic depression differential diagnosis would include major depression recurrent with psychotic features versus schizoaffective disorder. If patient had been taking dosage at home and I it appears Seroquel treatment was in adequate I would worry also about blood pressure and sedation effects. Trying get additional information from healthcare proxy outpatient psychiatrist see forget recent inpatient records. He is on Parnate instructed nursing he needs to be on an MAO diet allergies noted to gabapentin PT consult check B12 folate TSH physical reviewed case reviewed with Mary multiple chronic medical difficulties noted. Need to clarify if patient is normally his own decisionmaker. Patient might benefit from assisted living Consider Rogelio Sahu for both antidepressant and antipsychotic augmentation Patient educated on: diagnosis, medication risk/benefits and medical condition Informed Consent: further education needed Reason for continued inpatient stay Substantial Risk for: harm to self, harm to others, rapid decompensation and med/psych decompensation Statement Statement: I have reviewed the history and physical and performed a pertinent examination on my patient. No changes have occurred unless specified. If the History and Physical was not performed prior to admission, the Hospitalist's service will be consulted for completing the admission physical. Time Spent With Patient Time: Total time managing care of this patient today ____ minutes.
[2024-06-27 20:00] VITALS: BP 131/67; PULSE 59; RESP 16; TEMP 36.9; O2SAT 97
[2024-06-27] MEDS: Sennosides 8.6 MG TABLET 17.2 MG PO (22:51)
[2024-06-27] MEDS: QUEtiapine Fumarate 300 MG TABLET PO (22:51)
[2024-06-27] MEDS: Acetaminophen 325 MG TABLET 650 MG PO (22:52)
[2024-06-27] MEDS: clonazePAM 1 MG TABLET PO (22:52)
[2024-06-27] MEDS: Docusate Sodium 100 MG CAPSULE PO (22:52)
[2024-06-28] MEDS: Omeprazole 20 MG CAPSULE.DR PO (06:27)
[2024-06-28 07:53] LABS: Estimated Average Glucose 117 mg/dL; Hemoglobin A1C 107.7396 umol/L; Hemoglobin A1c % 5.7 % (<6.0); Total Hemoglobin (HGBA1C) 2759.4407 umol/L
[2024-06-28 07:54] LABS: Estimated Average Glucose 117 mg/dL; Hemoglobin A1C 107.3979 umol/L; Hemoglobin A1c % 5.7 % (<6.0); Total Hemoglobin (HGBA1C) 2763.4286 umol/L
[2024-06-28 08:13] LABS: Cholesterol 152 mg/dL (<200); HDL Cholesterol 58 mg/dL (>40); LDL Cholesterol Calculated 85 mg/dL (<100); Triglycerides 45 mg/dL (<150)
[2024-06-28 08:27] LABS: TSH reflex Free T4 2.22 uIU/mL (0.32-4.0)
[2024-06-28 08:29] LABS: Reflex LDLD? No
[2024-06-28] MEDS: Sodium Chloride Tab 1 GM TABLET PO ×3 (08:34→21:08)
[2024-06-28] MEDS: Baclofen 10 MG TABLET 5 MG PO ×3 (08:35→21:07)
[2024-06-28 08:40] LABS: Folate 9.7 ng/mL (> or = 4.0); Vitamin B12 556 pg/mL (200-900)
[2024-06-28 08:41] LABS: Folate 10.4 ng/mL (> or = 4.0); Vitamin B12 523 pg/mL (200-900)
[2024-06-28] MEDS: Acetaminophen 325 MG TABLET 650 MG PO (08:46)
[2024-06-28 10:48] VITALS: BP 129/61; PULSE 63; RESP 20; TEMP 37.1; O2SAT 94
--- NOTE | 2024-06-28 12:32 | HO.PSYCHPN ---
Subjective Subjective Date of Service: 06/28/24 Reason For Visit: Schizoaffective disorder Subjective Notes: Conditional Voluntary Interim History: Patient states he does have a healthcare proxy who is a friend of his but that he has generally been his own decisionmaker. Patient today was flat somewhat sedated he has now been off Parnate x2 days. Patient is somewhat flat dysphoric Mental Status Exam Mental Status Exam Narrative: Mental Status Exam Narrative: Appearance: Somewhat disheveled older male sad looking Behavior: Cooperative psychomotor: psychomotor retardation Speech: Speech somewhat slowed Thought proccess logic Thought content: Limited content patient lethargic Mood: Depressed Affect: Constricted SI: Denies currently HI:denies VH/AH: Intrusive thoughts Delusions: Question of delusional guilt Insight/judgment: Limited Memory/cog: Diagnostics Vital Signs (24Hr): Vital Signs - 24 hr 06/27/24 20:00 06/28/24 10:48 Temperature 98.5 F 98.7 F Pulse Rate 59 63 Respiratory Rate 16 20 Blood Pressure 131/67 129/61 Pulse Oximetry 97 94 Oxygen Delivery Method Room Air Room Air BMI result Body Mass Index 20.2 Labs 06/27/24 07:18 Labs: Laboratory Results - last 48 hr 06/27/24 06/28/24 06/28/24 07:18 07:37 07:37 Sodium 142 Potassium 4.3 Chloride 112 H Carbon Dioxide 25 Anion Gap 9 L BUN 32 H Creatinine 0.92 Estim Creat Clear Calc 51.4 Estimated GFR > 60 Fasting Glucose 101 H Estimat Average Glucose 117 117 Hemoglobin A1c % 5.7 Calcium 8.6 Total Bilirubin 0.3 AST 27 ALT 21 Alkaline Phosphatase 61 Total Protein 5.7 L Albumin 3.2 L Triglycerides 58 Cholesterol 154 LDL Cholesterol, Calc 86 HDL Cholesterol 57 Vitamin B12 Folate TSH 06/28/24 06/28/24 06/28/24 07:37 07:37 07:37 Sodium Potassium Chloride Carbon Dioxide Anion Gap BUN Creatinine Estim Creat Clear Calc Estimated GFR Fasting Glucose Estimat Average Glucose Hemoglobin A1c % 5.7 Calcium Total Bilirubin AST ALT Alkaline Phosphatase Total Protein Albumin Triglycerides 45 Cholesterol 152 LDL Cholesterol, Calc 85 HDL Cholesterol 58 Vitamin B12 556 523 Folate 9.7 10.4 TSH 2.22 Medications Medications Current Medications Acetaminophen (Acetaminophen 325 Mg Tablet) 650 mg PO Q6H PRN PRN Reason: Headache/Pain, Scale 1-10 Last Admin: 06/28/24 08:46 Dose: 650 mg Al Hydroxide/Mg Hydroxide (Magnesium Hydrox/Alum Hydrox 30 Ml Oral.Susp) 30 ml PO Q6H PRN PRN Reason: Heartburn/Nausea Baclofen (Baclofen 10 Mg Tablet) 5 mg PO TID [facility] Last Admin: 06/28/24 08:35 Dose: 5 mg Clonazepam (Clonazepam 1 Mg Tablet) 1 mg PO BEDTIME [facility] Last Admin: 06/27/24 22:52 Dose: 1 mg Docusate Sodium (Docusate Sodium 100 Mg Capsule) 100 mg PO BID [facility] Last Admin: 06/28/24 08:34 Dose: Not Given Lidocaine (Lidocaine 5 % Ointment 35 Gm) 1 appl TOPICAL Q6H PRN; Protocol PRN Reason: L shoulder pain Magnesium Hydroxide (Milk Of Magnesia 30 Ml Oral.Susp) 30 ml PO DAILY PRN PRN Reason: Constipation Non-Formulary Medication (Tranylcypromine) 30 mg PO BID [facility] Omeprazole (Omeprazole 20 Mg Capsule.Dr) 20 mg PO DAILY@0630 [facility] Last Admin: 06/28/24 06:27 Dose: 20 mg Quetiapine Fumarate (Quetiapine Fumarate 300 Mg Tablet) 300 mg PO BEDTIME [facility] Last Admin: 06/27/24 22:51 Dose: 300 mg Senna (Sennosides 8.6 Mg Tablet) 17.2 mg PO BEDTIME [facility] Last Admin: 06/27/24 22:51 Dose: 8.6 mg Sodium Chloride (Sodium Chloride Tab 1 Gm Tablet) 1 gm PO TID [facility] Last Admin: 06/28/24 08:34 Dose: 1 gm Trazodone HCl (Trazodone Hcl 50 Mg Tablet) 50 mg PO BEDTIME MRX1 PRN PRN Reason: Insomnia Allergies Allergies Allergy/AdvReac Type Severity Reaction Status Date / Time gabapentin Allergy side Verified 06/26/24 21:22 effect/sedation tyramine Allergy Hypertensio Uncoded 06/26/24 21:16 n Assessment & Plan Assessment & Plan (1) Major depression with psychotic features: Status: Acute Code(s): F32.3 - Major depressive disorder, single episode, severe with psychotic features (2) Pancytopenia: Status: Acute Code(s): D61.818 - Other pancytopenia (3) Atrial bigeminy: Status: Acute Code(s): I49.8 - Other specified cardiac arrhythmias (4) Gait disturbance: Status: Acute Code(s): R26.9 - Unspecified abnormalities of gait and mobility Plan Patient has a history chronic depression differential diagnosis would include major depression recurrent with psychotic features versus schizoaffective disorder. If patient had been taking dosage at home and I it appears Seroquel treatment was in adequate I would worry also about blood pressure and sedation effects. Trying get additional information from healthcare proxy outpatient psychiatrist see forget recent inpatient records. He is on Parnate instructed nursing he needs to be on an MAO diet allergies noted to gabapentin PT consult check B12 folate TSH physical reviewed case reviewed with Mary multiple chronic medical difficulties noted. Need to clarify if patient is normally his own decisionmaker. Patient might benefit from assisted living Consider Rogelio Sahu for both antidepressant and antipsychotic augmentation 06/28/2024 Lower Seroquel 200 mg at bedtime monitor response. Reviewed with pharmacy again necessity of obtaining Parnate patient lethargic and withdrawn Patient educated on: medication risk/benefits and medical condition Informed Consent: further education needed Reason for continued inpatient stay Substantial Risk for: harm to self and med/psych decompensation Time Spent With Patient Time: Total time managing care of this patient today ____ minutes.
[2024-06-28 20:00] VITALS: BP 158/77; PULSE 61; RESP 16; TEMP 36.6; O2SAT 96
[2024-06-28] MEDS: Sennosides 8.6 MG TABLET 17.2 MG PO (21:05)
[2024-06-28] MEDS: clonazePAM 0.5 MG TABLET PO (21:05)
[2024-06-28] MEDS: QUEtiapine Fumarate 200 MG TABLET PO (21:06)
[2024-06-29] MEDS: clonazePAM 0.5 MG TABLET PO ×2 (03:51→21:04)
[2024-06-29] MEDS: Omeprazole 20 MG CAPSULE.DR PO (06:06)
[2024-06-29 08:00] VITALS: BP 149/65; PULSE 64; RESP 18; TEMP 37.1; O2SAT 100
[2024-06-29] MEDS: Sodium Chloride Tab 1 GM TABLET PO ×3 (08:31→21:05)
[2024-06-29] MEDS: Baclofen 10 MG TABLET 5 MG PO ×3 (08:32→21:02)
[2024-06-29] MEDS: Acetaminophen 325 MG TABLET 650 MG PO ×2 (11:25→19:53)
--- NOTE | 2024-06-29 13:37 | P.PNPSI_ITS ---
Subjective Subjective Date of Service: 06/29/24 Reason For Visit: Schizoaffective disorder Interim History: c/o more pain in back and shoulder than usual, reports tylneol not helping much. says usually he lies down on a comfortable sofa to help with the pain. also states he is a member of a 12-step group that holds meetings virtually at 1215 on mondays and asks to attend. request relayed to nurse mgr. per staff, slept 6 hours. +SI. taking meds, including parnate as of today. Mental Status Exam Mental Status Exam Narrative: Mental Status Exam Narrative: Appearance: Somewhat disheveled older male sad looking, hunched posture Behavior: Cooperative psychomotor: psychomotor retardation Speech: Speech somewhat slowed Thought process logical Thought content: somatic pain, 12 step program mtg Mood: Depressed Affect: Constricted SI: Denies currently HI:denies VH/AH: Intrusive thoughts Delusions: Question of delusional guilt Insight/judgment: Limited Memory/cog: Diagnostics Vital Signs (24Hr): Vital Signs - 24 hr 06/28/24 20:00 06/29/24 08:00 Temperature 98 F 98.7 F Pulse Rate 61 64 Respiratory Rate 16 18 Blood Pressure 158/77 H 149/65 H Pulse Oximetry 96 100 Oxygen Delivery Method Room Air Room Air BMI result Body Mass Index 20.2 Labs 06/27/24 07:18 Labs: Laboratory Results - last 48 hr 06/28/24 06/28/24 06/28/24 07:37 07:37 07:37 Estimat Average Glucose 117 117 Hemoglobin A1c % 5.7 5.7 Triglycerides 45 Cholesterol 152 LDL Cholesterol, Calc 85 HDL Cholesterol 58 Vitamin B12 556 Folate TSH 06/28/24 06/28/24 07:37 07:37 Estimat Average Glucose Hemoglobin A1c % Triglycerides Cholesterol LDL Cholesterol, Calc HDL Cholesterol Vitamin B12 523 Folate 9.7 10.4 TSH 2.22 Medications Medications Current Medications Acetaminophen (Acetaminophen 325 Mg Tablet) 650 mg PO Q6H PRN PRN Reason: Headache/Pain, Scale 1-10 Last Admin: 06/29/24 11:25 Dose: 650 mg Al Hydroxide/Mg Hydroxide (Magnesium Hydrox/Alum Hydrox 30 Ml Oral.Susp) 30 ml PO Q6H PRN PRN Reason: Heartburn/Nausea Baclofen (Baclofen 10 Mg Tablet) 5 mg PO TID [facility] Last Admin: 06/29/24 08:32 Dose: 5 mg Clonazepam (Clonazepam 0.5 Mg Tablet) 0.5 mg PO BEDTIME [facility] Last Admin: 06/28/24 21:05 Dose: 0.5 mg Clonazepam (Clonazepam 0.5 Mg Tablet) 0.5 mg PO BEDTIME PRN PRN Reason: Insomnia Last Admin: 06/29/24 03:51 Dose: 0.5 mg Docusate Sodium (Docusate Sodium 100 Mg Capsule) 100 mg PO BID [facility] Last Admin: 06/29/24 08:33 Dose: Not Given Lidocaine (Lidocaine 5 % Ointment 35 Gm) 1 appl TOPICAL Q6H PRN; Protocol PRN Reason: L shoulder pain Magnesium Hydroxide (Milk Of Magnesia 30 Ml Oral.Susp) 30 ml PO DAILY PRN PRN Reason: Constipation Omeprazole (Omeprazole 20 Mg Capsule.Dr) 20 mg PO DAILY@0630 [facility] Last Admin: 06/29/24 06:06 Dose: 20 mg Quetiapine Fumarate (Quetiapine Fumarate 200 Mg Tablet) 200 mg PO BEDTIME [facility] Last Admin: 06/28/24 21:06 Dose: 200 mg Senna (Sennosides 8.6 Mg Tablet) 17.2 mg PO BEDTIME [facility] Last Admin: 06/28/24 21:05 Dose: 8.6 mg Sodium Chloride (Sodium Chloride Tab 1 Gm Tablet) 1 gm PO TID [facility] Last Admin: 06/29/24 08:31 Dose: 1 gm Tranylcypromine Sulfate (Tranylcypromine Sulfate 10 Mg Tablet) 30 mg PO BID [facility] Last Admin: 06/29/24 10:19 Dose: 30 mg Trazodone HCl (Trazodone Hcl 50 Mg Tablet) 50 mg PO BEDTIME MRX1 PRN PRN Reason: Insomnia Allergies Allergies Allergy/AdvReac Type Severity Reaction Status Date / Time gabapentin Allergy side Verified 06/26/24 21:22 effect/sedation tyramine Allergy Hypertensio Uncoded 06/26/24 21:16 n Assessment & Plan Assessment & Plan (1) Major depression with psychotic features: Status: Acute Code(s): F32.3 - Major depressive disorder, single episode, severe with psychotic features (2) Pancytopenia: Status: Acute Code(s): D61.818 - Other pancytopenia (3) Atrial bigeminy: Status: Acute Code(s): I49.8 - Other specified cardiac arrhythmias (4) Gait disturbance: Status: Acute Code(s): R26.9 - Unspecified abnormalities of gait and mobility Plan Patient has a history chronic depression differential diagnosis would include major depression recurrent with psychotic features versus schizoaffective disorder. If patient had been taking dosage at home and I it appears Seroquel treatment was in adequate I would worry also about blood pressure and sedation effects. Trying get additional information from healthcare proxy outpatient psychiatrist see forget recent inpatient records. He is on P[facility]ate instructed nursing he needs to be on an MAO diet allergies noted to gabapentin PT consult check B12 folate TSH physical reviewed case reviewed with Mary multiple chronic medical difficulties noted. Need to clarify if patient is normally his own decisionmaker. Patient might benefit from assisted living Consider Rogelio Sahu for both antidepressant and antipsychotic augmentation 06/28: Lower Seroquel 200 mg at bedtime monitor response. Reviewed with pharmacy again necessity of obtaining Parnate patient lethargic and withdrawn. 06/29: per nursing report, parnate started today. c/o left shoulder and lumbar back pain, tylenol inadequate. MD agrees to increase tylenol regimen. staff air tactical officer to try to facilitate attendance at virtual AA mtg today. otherwise continue current mgmt. Reason for continued inpatient stay Substantial Risk for: harm to self, inability to function and rapid decompensation Time Spent With Patient Time: Total time managing care of this patient today _25___ minutes.
[2024-06-29] MEDS: Magnesium Hydrox/Alum Hydrox 30 ML ORAL.SUSP PO (16:48)
[2024-06-29 20:00] VITALS: BP 137/80; PULSE 97; TEMP 36.8; O2SAT 94
[2024-06-29] MEDS: QUEtiapine Fumarate 200 MG TABLET PO (21:04)
[2024-06-29] MEDS: traZODone HCL 50 MG TABLET PO (21:20)
[2024-06-30] MEDS: clonazePAM 0.5 MG TABLET PO ×2 (02:32→21:49)
[2024-06-30] MEDS: Acetaminophen 325 MG TABLET 650 MG PO (02:33)
[2024-06-30] MEDS: Omeprazole 20 MG CAPSULE.DR PO (05:53)
[2024-06-30 07:55] VITALS: BP 152/72; PULSE 60; RESP 18; TEMP 36.4; O2SAT 98
[2024-06-30] MEDS: Docusate Sodium 100 MG CAPSULE PO ×2 (08:38→20:27)
[2024-06-30] MEDS: Baclofen 10 MG TABLET 5 MG PO ×3 (08:38→20:27)
[2024-06-30] MEDS: Sodium Chloride Tab 1 GM TABLET PO ×3 (08:40→20:27)
[2024-06-30 19:47] VITALS: BP 129/61; PULSE 52; TEMP 36.8; O2SAT 96
[2024-06-30] MEDS: QUEtiapine Fumarate 300 MG TABLET PO (20:27)
[2024-06-30] MEDS: clonazePAM 1 MG TABLET PO (20:27)
[2024-06-30] MEDS: traZODone HCL 50 MG TABLET PO (20:28)
[2024-06-30] MEDS: Sennosides 8.6 MG TABLET 17.2 MG PO (20:28)
--- NOTE | 2024-06-30 20:47 | P.PNPSI_ITS ---
Subjective Subjective Date of Service: 06/30/24 Reason For Visit: Schizoaffective disorder Subjective Notes: Conditional Voluntary Healthcare Proxy: Yes (not invoked) Interim History: Patient seen psychiatric follow-up. The patient states he has had markedly poor sleep since Seroquel was lowered to 200 mg and that he had been on 300 mg for an extended period of time wishes that his medication be brought back up to where was previously. He has been quite anxious he was restarted on Nardil after being 2 days without it and there may have been some withdrawal syndrome. Patient is asking for help with intrusive thoughts that somehow he did not save someone in the [place] and connects that with thoughts that he should kill himself he denies any active thoughts or intent He does continue to complain of shoulder pain and back pain which are chronic issues Medication Compliance: Yes Review of Systems Acute medical concerns: Yes Chronic bradycardia spinal stenosis chronic shoulder pain Medical Review of Systems: unchanged Mental Status Exam Mental Status Exam Narrative: Mental Status Exam Narrative: Appearance: Somewhat disheveled older male sad looking, hunched posture Behavior: Cooperative psychomotor: psychomotor retardation Speech: Speech somewhat slowed Thought process logical Thought content: somatic pain, focused on psychiatric treatment help with intrusive thoughts Mood: Depressed Affect: Constricted SI: Denies currently HI:denies VH/AH: Intrusive thoughts Delusions: Question of delusional guilt Insight/judgment: Limited Memory/cog: Diagnostics Vital Signs (24Hr): Vital Signs - 24 hr 06/30/24 07:55 06/30/24 19:47 Temperature 97.5 F 98.2 F Pulse Rate 60 52 Respiratory Rate 18 Blood Pressure 152/72 H 129/61 Pulse Oximetry 98 96 Oxygen Delivery Method Room Air Room Air BMI result Body Mass Index 20.2 Labs 06/27/24 07:18 Medications Medications Current Medications Acetaminophen (Acetaminophen 325 Mg Tablet) 650 mg PO Q4H PRN PRN Reason: Headache/Pain, Scale 1-10 Last Admin: 06/30/24 02:33 Dose: 650 mg Al Hydroxide/Mg Hydroxide (Magnesium Hydrox/Alum Hydrox 30 Ml Oral.Susp) 30 ml PO Q6H PRN PRN Reason: Heartburn/Nausea Last Admin: 06/29/24 16:48 Dose: 30 ml Baclofen (Baclofen 10 Mg Tablet) 5 mg PO TID DARIELA Last Admin: 06/30/24 20:27 Dose: 5 mg Clonazepam (Clonazepam 0.5 Mg Tablet) 0.5 mg PO BEDTIME PRN PRN Reason: Insomnia Last Admin: 06/30/24 02:32 Dose: 0.5 mg Clonazepam (Clonazepam 1 Mg Tablet) 1 mg PO BEDTIME [facility] Last Admin: 06/30/24 20:27 Dose: 1 mg Docusate Sodium (Docusate Sodium 100 Mg Capsule) 100 mg PO BID [facility] Last Admin: 06/30/24 20:27 Dose: 100 mg Lidocaine (Lidocaine 5 % Ointment 35 Gm) 1 appl TOPICAL Q6H PRN; Protocol PRN Reason: L shoulder pain Magnesium Hydroxide (Milk Of Magnesia 30 Ml Oral.Susp) 30 ml PO DAILY PRN PRN Reason: Constipation Omeprazole (Omeprazole 20 Mg Capsule.Dr) 20 mg PO DAILY@0630 [facility] Last Admin: 06/30/24 05:53 Dose: 20 mg Quetiapine Fumarate (Quetiapine Fumarate 300 Mg Tablet) 300 mg PO BEDTIME [facility] Last Admin: 06/30/24 20:27 Dose: 300 mg Senna (Sennosides 8.6 Mg Tablet) 17.2 mg PO BEDTIME [facility] Last Admin: 06/30/24 20:28 Dose: 17.2 mg Sodium Chloride (Sodium Chloride Tab 1 Gm Tablet) 1 gm PO TID [facility] Last Admin: 06/30/24 20:27 Dose: 1 gm Tranylcypromine Sulfate (Tranylcypromine Sulfate 10 Mg Tablet) 30 mg PO BID [facility] Last Admin: 06/30/24 20:27 Dose: 30 mg Trazodone HCl (Trazodone Hcl 50 Mg Tablet) 50 mg PO BEDTIME MRX1 PRN PRN Reason: Insomnia Last Admin: 06/30/24 20:28 Dose: 50 mg Allergies Allergies Allergy/AdvReac Type Severity Reaction Status Date / Time gabapentin Allergy side Verified 06/26/24 21:22 effect/sedation tyramine Allergy Hypertensio Uncoded 06/26/24 21:16 n Assessment & Plan Assessment & Plan (1) Major depression with psychotic features: Status: Acute Code(s): F32.3 - Major depressive disorder, single episode, severe with psychotic features (2) Pancytopenia: Status: Acute Code(s): D61.818 - Other pancytopenia (3) Atrial bigeminy: Status: Acute Code(s): I49.8 - Other specified cardiac arrhythmias (4) Gait disturbance: Status: Acute Code(s): R26.9 - Unspecified abnormalities of gait and mobility Plan Patient has a history chronic depression differential diagnosis would include major depression recurrent with psychotic features versus schizoaffective disorder. If patient had been taking dosage at home and I it appears Seroquel treatment was in adequate I would worry also about blood pressure and sedation effects. Trying get additional information from healthcare proxy outpatient psychiatrist see forget recent inpatient records. He is on [facility] instructed nursing he needs to be on an MAO diet allergies noted to gabapentin PT consult check B12 folate TSH physical reviewed case reviewed with Mary multiple chronic medical difficulties noted. Need to clarify if patient is normally his own decisionmaker. Patient might benefit from assisted living Consider Rexulti Vraylar for both antidepressant and antipsychotic augmentation 06/28: Lower Seroquel 200 mg at bedtime monitor response. Reviewed with pharmacy again necessity of obtaining Parnate patient lethargic and withdrawn. 06/29: per nursing report, parnate started today. c/o left shoulder and lumbar back pain, tylenol inadequate. MD agrees to increase tylenol regimen. staff development educator to try to facilitate attendance at virtual AA mtg today. otherwise continue current mgmt. 06/30/24 Chronic use of clonazepam he was taking 1.5 mg will increase back to 1 mg Seroquel 300 mg at bedtime try and coordinate care and get additional history from outpatient psychiatrist at [facility] or [place] and also see if we can get inpatient records start Rexulti 0.25 mg in the morning Patient educated on: diagnosis and medication risk/benefits Informed Consent: understands Reason for continued inpatient stay Substantial Risk for: harm to self, inability to function and rapid decompensation Time Spent With Patient Time: Total time managing care of this patient today _35___ minutes.
[2024-07-01] MEDS: Omeprazole 20 MG CAPSULE.DR PO (06:18)
[2024-07-01 08:55] VITALS: BP 128/64; PULSE 62; TEMP 36.8; O2SAT 97
[2024-07-01] MEDS: Baclofen 10 MG TABLET 5 MG PO ×3 (09:00→20:39)
[2024-07-01] MEDS: Docusate Sodium 100 MG CAPSULE PO ×2 (09:01→20:39)
[2024-07-01] MEDS: Sodium Chloride Tab 1 GM TABLET PO ×3 (09:01→20:39)
--- NOTE | 2024-07-01 09:14 | P.PNPSI_ITS ---
Subjective Subjective Date of Service: 07/01/24 Reason For Visit: Schizoaffective disorder Subjective Notes: Conditional Voluntary Interim History: Case reviewed in treatment team chart reviewed patient seen. Patient seemed more comfortable today reportedly had a good night's sleep has been eating and has been out in the milieu took 1st dose of Rexulti 0.5 mg daily Medication Compliance: Yes Mental Status Exam Mental Status Exam Narrative: Mental Status Exam Narrative: Appearance: Somewhat disheveled older male , hunched posture smiling Behavior: Cooperative good eye contact psychomotor: psychomotor retardation Speech: Speech somewhat slowed Thought process logical Thought content: somatic pain,frustrated with lack of tx options focused on psychiatric treatment help with intrusive thoughts forthcoming regarding his social engagement and life Mood: less Depressed Affect: denis SI: Denies currently HI:denies VH/AH: Intrusive thoughts Delusions: Question of delusional guilt less intense Insight/judgment: Limited Memory/cog: Diagnostics Vital Signs (24Hr): Vital Signs - 24 hr 06/30/24 19:47 Temperature 98.2 F Pulse Rate 52 Blood Pressure 129/61 Pulse Oximetry 96 Oxygen Delivery Method Room Air BMI result Body Mass Index 20.2 Labs 06/27/24 07:18 Medications Medications Current Medications Acetaminophen (Acetaminophen 325 Mg Tablet) 650 mg PO Q4H PRN PRN Reason: Headache/Pain, Scale 1-10 Last Admin: 06/30/24 02:33 Dose: 650 mg Al Hydroxide/Mg Hydroxide (Magnesium Hydrox/Alum Hydrox 30 Ml Oral.Susp) 30 ml PO Q6H PRN PRN Reason: Heartburn/Nausea Last Admin: 06/29/24 16:48 Dose: 30 ml Baclofen (Baclofen 10 Mg Tablet) 5 mg PO TID [facility] Last Admin: 07/01/24 09:00 Dose: 5 mg Brexpiprazole (Brexpiprazole 1 Mg Tablet) 0.25 mg PO DAILY [facility] Clonazepam (Clonazepam 0.5 Mg Tablet) 0.5 mg PO BEDTIME PRN PRN Reason: Insomnia Last Admin: 06/30/24 21:49 Dose: 0.5 mg Clonazepam (Clonazepam 1 Mg Tablet) 1 mg PO BEDTIME [facility] Last Admin: 06/30/24 20:27 Dose: 1 mg Docusate Sodium (Docusate Sodium 100 Mg Capsule) 100 mg PO BID [facility] Last Admin: 07/01/24 09:01 Dose: 100 mg Lidocaine (Lidocaine 5 % Ointment 35 Gm) 1 appl TOPICAL Q6H PRN; Protocol PRN Reason: L shoulder pain Magnesium Hydroxide (Milk Of Magnesia 30 Ml Oral.Susp) 30 ml PO DAILY PRN PRN Reason: Constipation Omeprazole (Omeprazole 20 Mg Capsule.Dr) 20 mg PO DAILY@0630 [facility] Last Admin: 07/01/24 06:18 Dose: 20 mg Quetiapine Fumarate (Quetiapine Fumarate 300 Mg Tablet) 300 mg PO BEDTIME [facility] Last Admin: 06/30/24 20:27 Dose: 300 mg Senna (Sennosides 8.6 Mg Tablet) 17.2 mg PO BEDTIME [facility] Last Admin: 06/30/24 20:28 Dose: 17.2 mg Sodium Chloride (Sodium Chloride Tab 1 Gm Tablet) 1 gm PO TID [facility] Last Admin: 07/01/24 09:01 Dose: 1 gm Tranylcypromine Sulfate (Tranylcypromine Sulfate 10 Mg Tablet) 30 mg PO BID [facility] Last Admin: 07/01/24 09:01 Dose: 30 mg Trazodone HCl (Trazodone Hcl 50 Mg Tablet) 50 mg PO BEDTIME MRX1 PRN PRN Reason: Insomnia Last Admin: 06/30/24 20:28 Dose: 50 mg Allergies Allergies Allergy/AdvReac Type Severity Reaction Status Date / Time gabapentin Allergy side Verified 06/26/24 21:22 effect/sedation tyramine Allergy Hypertensio Uncoded 06/26/24 21:16 n Assessment & Plan Assessment & Plan (1) Major depression with psychotic features: Status: Acute Code(s): F32.3 - Major depressive disorder, single episode, severe with psychotic features (2) Pancytopenia: Status: Acute Code(s): D61.818 - Other pancytopenia (3) Atrial bigeminy: Status: Acute Code(s): I49.8 - Other specified cardiac arrhythmias (4) Gait disturbance: Status: Acute Code(s): R26.9 - Unspecified abnormalities of gait and mobility Plan Patient has a history chronic depression differential diagnosis would include major depression recurrent with psychotic features versus schizoaffective disorder. If patient had been taking dosage at home and I it appears Seroquel treatment was in adequate I would worry also about blood pressure and sedation effects. Trying get additional information from healthcare proxy outpatient psychiatrist see forget recent inpatient records. He is on Parnate instructed nursing he needs to be on an MAO diet allergies noted to gabapentin PT consult check B12 folate TSH physical reviewed case reviewed with Mary multiple chronic medical difficulties noted. Need to clarify if patient is normally his own decisionmaker. Patient might benefit from assisted living Consider Rexulti Vraylar for both antidepressant and antipsychotic augmentation 06/28: Lower Seroquel 200 mg at bedtime monitor response. Reviewed with pharmacy again necessity of obtaining Parnate patient lethargic and withdrawn. 06/29: per nursing report, parnate started today. c/o left shoulder and lumbar back pain, tylenol inadequate. MD agrees to increase tylenol regimen. staff radiographer to try to facilitate attendance at virtual AA mt today. otherwise continue current mgmt. 06/30/24 Chronic use of clonazepam he was taking 1.5 mg will increase back to 1 mg Seroquel 300 mg at bedtime try and coordinate care and get additional history from outpatient psychiatrist at [facility] or [facility] and also see if we can get inpatient records start Rexulti 0.25 mg in the morning 07/01/24 start rexulti 0.5 monitor tolerance vital sx gait and intensity of psychosis Reason for continued inpatient stay Substantial Risk for: harm to self, rapid decompensation and med/psych decompensation Time Spent With Patient Time: Total time managing care of this patient today ____ minutes.
[2024-07-01] MEDS: Brexpiprazole 1 MG TABLET 0.5 MG PO (09:20)
--- NOTE | 2024-07-01 14:30 | MHC.CLN ---
Addendum entered by Rocío Garcia, CYNDY 07/01/24 14:51: PATIENT TAKES MEDICATION PARNATE. LOW TYRAMINE DIET INDICATED WITH MEDICATION. NOTED BY [facility]. Original Note: NUTRITION VISITED WITH PATIENT ON UNIT. HEIGHT RECORDED 5'5 APPEARS TO BE GREATER THAN ACTUAL HEIGHT. ACTUAL HEIGHT IS DIFFICULT TO ASSESS DUE TO OSTEOPOROSIS/KYPHOSCOLIOSIS WITH VISIBLE SPINAL CURVATURE. PO INTAKE VARIABLE WITH MOST MEALS AT LEAST 50%. ADDING ENSURE BID (700 KCALS, 40 G PROTEIN) TO PROMOTE NUTRITIONAL INTAKE. RD TO MONITOR WEEKLY.
[2024-07-01 19:43] LABS: Vitamin D 25-OH, D2 <4 ng/mL; Vitamin D 25-OH, D3 34 ng/mL; Vitamin D 25-OH, Total 34 ng/mL (30-100)
[2024-07-01 20:00] VITALS: BP 128/63; PULSE 55; TEMP 36.7; O2SAT 97
[2024-07-01] MEDS: traZODone HCL 50 MG TABLET PO (20:39)
[2024-07-01] MEDS: clonazePAM 1 MG TABLET PO (20:39)
[2024-07-01] MEDS: Sennosides 8.6 MG TABLET 17.2 MG PO (20:39)
[2024-07-01] MEDS: QUEtiapine Fumarate 300 MG TABLET PO (20:39)
[2024-07-02] MEDS: Omeprazole 20 MG CAPSULE.DR PO (06:17)
[2024-07-02 07:50] VITALS: BP 119/61; PULSE 60; RESP 16; TEMP 36.7; O2SAT 99
[2024-07-02] MEDS: Brexpiprazole 1 MG TABLET 0.5 MG PO (08:29)
[2024-07-02] MEDS: Baclofen 10 MG TABLET 5 MG PO ×3 (08:30→21:45)
[2024-07-02] MEDS: Sodium Chloride Tab 1 GM TABLET PO ×3 (08:30→21:45)
[2024-07-02] MEDS: Docusate Sodium 100 MG CAPSULE PO (08:31)
[2024-07-02 20:00] VITALS: BP 141/67; PULSE 54; RESP 16; TEMP 36.6; O2SAT 96
--- NOTE | 2024-07-02 21:25 | HO.PSYCHPN ---
Subjective Subjective Date of Service: 07/02/24 Reason For Visit: Schizoaffective disorder Subjective Notes: Conditional Voluntary Medical Problems Affecting Mental Status: Yes Interim History: Patient seen psychiatric follow-up case reviewed in treatment team. Patient did sleep through night had some increase in nightmares negative intrusive thoughts do continue. Things are complicated by significant pain in his shoulder and he does have L2 fracture limited pain management Medication Compliance: Yes Side effects from medications: No Attending Groups: Intermittent Review of Systems Issues related to chronic pain Mental Status Exam Mental Status Exam Narrative: Mental Status Exam Narrative: Appearance: Somewhat disheveled older male , hunched posture smiling Behavior: Cooperative good eye contact psychomotor: psychomotor retardation Speech: Speech somewhat slowed Thought process logical Thought content: somatic pain,frustrated with lack of tx options focused on psychiatric treatment help with intrusive thoughts Relates some of this to his pain Mood: Depressed Affect: Constricted SI: Denies currently HI:denies VH/AH: Intrusive thoughts Delusions: Question of delusional guilt less intense Insight/judgment: Limited Memory/cog: Intact Diagnostics Vital Signs (24Hr): Vital Signs - 24 hr 07/02/24 07:50 07/02/24 20:00 Temperature 98.0 F 97.8 F Pulse Rate 60 54 Respiratory Rate 16 16 Blood Pressure 119/61 141/67 H Pulse Oximetry 99 96 Oxygen Delivery Method Room Air Room Air BMI result Body Mass Index 20.2 Labs 06/27/24 07:18 Labs: Laboratory Results - last 48 hr 06/28/24 07:37 25-OH Vitamin D Total 34 25-Hydroxy Vitamin D2 <4 25-Hydroxy Vitamin D3 34 Medications Medications Current Medications Acetaminophen (Acetaminophen 325 Mg Tablet) 650 mg PO Q4H PRN PRN Reason: Headache/Pain, Scale 1-10 Last Admin: 06/30/24 02:33 Dose: 650 mg Al Hydroxide/Mg Hydroxide (Magnesium Hydrox/Alum Hydrox 30 Ml Oral.Susp) 30 ml PO Q6H PRN PRN Reason: Heartburn/Nausea Last Admin: 06/29/24 16:48 Dose: 30 ml Baclofen (Baclofen 10 Mg Tablet) 5 mg PO TID DARIELA Last Admin: 07/02/24 14:43 Dose: 5 mg Brexpiprazole (Brexpiprazole 1 Mg Tablet) 0.5 mg PO DAILY [facility] Last Admin: 07/02/24 08:29 Dose: 0.5 mg Clonazepam (Clonazepam 0.5 Mg Tablet) 0.5 mg PO BEDTIME PRN PRN Reason: Insomnia Last Admin: 06/30/24 21:49 Dose: 0.5 mg Clonazepam (Clonazepam 1 Mg Tablet) 1 mg PO BEDTIME [facility] Last Admin: 07/01/24 20:39 Dose: 1 mg Docusate Sodium (Docusate Sodium 100 Mg Capsule) 100 mg PO BID [facility] Last Admin: 07/02/24 08:31 Dose: 100 mg Lidocaine (Lidocaine 5 % Ointment 35 Gm) 1 appl TOPICAL Q6H PRN; Protocol PRN Reason: L shoulder pain Magnesium Hydroxide (Milk Of Magnesia 30 Ml Oral.Susp) 30 ml PO DAILY PRN PRN Reason: Constipation Omeprazole (Omeprazole 20 Mg Capsule.Dr) 20 mg PO DAILY@0630 [facility] Last Admin: 07/02/24 06:17 Dose: 20 mg Quetiapine Fumarate (Quetiapine Fumarate 300 Mg Tablet) 300 mg PO BEDTIME [facility] Last Admin: 07/01/24 20:39 Dose: 300 mg Senna (Sennosides 8.6 Mg Tablet) 17.2 mg PO BEDTIME [facility] Last Admin: 07/01/24 20:39 Dose: 17.2 mg Sodium Chloride (Sodium Chloride Tab 1 Gm Tablet) 1 gm PO TID [facility] Last Admin: 07/02/24 14:43 Dose: 1 gm Tranylcypromine Sulfate (Tranylcypromine Sulfate 10 Mg Tablet) 30 mg PO BID [facility] Last Admin: 07/02/24 08:31 Dose: 30 mg Trazodone HCl (Trazodone Hcl 50 Mg Tablet) 50 mg PO BEDTIME MRX1 PRN PRN Reason: Insomnia Last Admin: 07/01/24 20:39 Dose: 50 mg Allergies Allergies Allergy/AdvReac Type Severity Reaction Status Date / Time gabapentin Allergy side Verified 06/26/24 21:22 effect/sedation tyramine Allergy Hypertensio Uncoded 06/26/24 21:16 n Assessment & Plan Assessment & Plan (1) Major depression with psychotic features: Status: Acute Code(s): F32.3 - Major depressive disorder, single episode, severe with psychotic features (2) Pancytopenia: Status: Acute Code(s): D61.818 - Other pancytopenia (3) Atrial bigeminy: Status: Acute Code(s): I49.8 - Other specified cardiac arrhythmias (4) Gait disturbance: Status: Acute Code(s): R26.9 - Unspecified abnormalities of gait and mobility Plan Patient has a history chronic depression differential diagnosis would include major depression recurrent with psychotic features versus schizoaffective disorder. If patient had been taking dosage at home and I it appears Seroquel treatment was in adequate I would worry also about blood pressure and sedation effects. Trying get additional information from healthcare proxy outpatient psychiatrist see forget recent inpatient records. He is on Parnate instructed nursing he needs to be on an MAO diet allergies noted to gabapentin PT consult check B12 folate TSH physical reviewed case reviewed with Mary multiple chronic medical difficulties noted. Need to clarify if patient is normally his own decisionmaker. Patient might benefit from assisted living Consider Rexulti Vraylar for both antidepressant and antipsychotic augmentation 06/28: Lower Seroquel 200 mg at bedtime monitor response. Reviewed with pharmacy again necessity of obtaining Parnate patient lethargic and withdrawn. 06/29: per nursing report, parnate started today. c/o left shoulder and lumbar back pain, tylenol inadequate. MD agrees to increase tylenol regimen. clinical staff anesthesiologist to try to facilitate attendance at virtual AA mt today. otherwise continue current mgmt. 06/30/24 Chronic use of clonazepam he was taking 1.5 mg will increase back to 1 mg Seroquel 300 mg at bedtime try and coordinate care and get additional history from outpatient psychiatrist at [facility] or [facility] and also see if we can get inpatient records start Rexulti 0.25 mg in the morning 07/01/24 start rexulti 0.5 monitor tolerance vital sx gait and intensity of psychosis 07/02/2024 Check shoulder x-ray and rib films patient with gait disturbance history of question spinal stenosis continue Rexulti monitor for side effects monitor response Patient educated on: diagnosis and medication risk/benefits Informed Consent: further education needed Reason for continued inpatient stay Substantial Risk for: harm to self, rapid decompensation and med/psych decompensation Time Spent With Patient Time: Total time managing care of this patient today ____ minutes.
[2024-07-02] MEDS: Sennosides 8.6 MG TABLET 17.2 MG PO (21:44)
[2024-07-02] MEDS: QUEtiapine Fumarate 300 MG TABLET PO (21:45)
[2024-07-02] MEDS: clonazePAM 1 MG TABLET PO (21:45)
[2024-07-03] MEDS: Omeprazole 20 MG CAPSULE.DR PO (06:09)
[2024-07-03 08:01] VITALS: BP 139/65; PULSE 58; RESP 16; TEMP 36.4; O2SAT 97
[2024-07-03] MEDS: Sodium Chloride Tab 1 GM TABLET PO ×3 (08:23→20:00)
[2024-07-03] MEDS: Baclofen 10 MG TABLET 5 MG PO ×3 (08:24→20:00)
[2024-07-03] MEDS: Brexpiprazole 1 MG TABLET 0.5 MG PO (08:26)
[2024-07-03] MEDS: Sennosides 8.6 MG TABLET 17.2 MG PO (19:59)
[2024-07-03] MEDS: Docusate Sodium 100 MG CAPSULE PO (20:00)
[2024-07-03] MEDS: clonazePAM 1 MG TABLET PO (20:00)
[2024-07-03] MEDS: QUEtiapine Fumarate 300 MG TABLET PO (20:00)
--- NOTE | 2024-07-03 21:16 | P.PNPSI_ITS ---
Subjective Subjective Date of Service: 07/03/24 Reason For Visit: Schizoaffective disorder Subjective Notes: Conditional Voluntary Interim History: Pt seen in f/u mood flat dysphoric some improvement noted on rexulti c/o llq abd pain Medication Compliance: Yes Mental Status Exam Mental Status Exam Narrative: Mental Status Exam Narrative: Appearance: Somewhat disheveled older male Behavior: Cooperative good eye contact psychomotor: psychomotor retardation Speech: Speech somewhat slowed Thought process logical Thought content: somatic pain,frustrated with lack of tx options for pain less intrusive thoughts re the holocoust Mood: Depressed Affect: Constricted SI: Denies currently HI:denies VH/AH: Intrusive thoughts Delusions: Question of delusional guilt less intense Insight/judgment: Limited Memory/cog: Intact Diagnostics Vital Signs (24Hr): Vital Signs - 24 hr 07/03/24 08:01 Temperature 97.5 F Pulse Rate 58 Respiratory Rate 16 Blood Pressure 139/65 Pulse Oximetry 97 Oxygen Delivery Method Room Air BMI result Body Mass Index 20.2 Labs 06/27/24 07:18 Imaging Radiology Impressions: ITS Impressions Shoulder X-Ray 07/02/24 09:20 IMPRESSION: Osteopenia. Severe osteoarthritis of the glenohumeral joint with findings suggestive of rotator cuff arthropathy. Electronically signed by: Dionicio Pacheco MD 07/03/2024 11:23 AM EDT RP Ribs X-Ray 07/03/24 09:20 IMPRESSION: No evidence of fracture of the left ribs. Electronically signed by: Dionicio Pacheco MD 07/03/2024 10:25 AM EDT RP Medications Medications Current Medications Acetaminophen (Acetaminophen 325 Mg Tablet) 650 mg PO Q4H PRN PRN Reason: Headache/Pain, Scale 1-10 Last Admin: 06/30/24 02:33 Dose: 650 mg Al Hydroxide/Mg Hydroxide (Magnesium Hydrox/Alum Hydrox 30 Ml Oral.Susp) 30 ml PO Q6H PRN PRN Reason: Heartburn/Nausea Last Admin: 06/29/24 16:48 Dose: 30 ml Baclofen (Baclofen 10 Mg Tablet) 5 mg PO TID [facility] Last Admin: 07/03/24 20:00 Dose: 5 mg Brexpiprazole (Brexpiprazole 1 Mg Tablet) 0.5 mg PO DAILY [facility] Last Admin: 07/03/24 08:26 Dose: 0.5 mg Clonazepam (Clonazepam 0.5 Mg Tablet) 0.5 mg PO BEDTIME PRN PRN Reason: Insomnia Last Admin: 06/30/24 21:49 Dose: 0.5 mg Clonazepam (Clonazepam 1 Mg Tablet) 1 mg PO BEDTIME [facility] Last Admin: 07/03/24 20:00 Dose: 1 mg Docusate Sodium (Docusate Sodium 100 Mg Capsule) 100 mg PO BID [facility] Last Admin: 07/03/24 20:00 Dose: 100 mg Lidocaine (Lidocaine 5 % Ointment 35 Gm) 1 appl TOPICAL Q6H PRN; Protocol PRN Reason: L shoulder pain Magnesium Hydroxide (Milk Of Magnesia 30 Ml Oral.Susp) 30 ml PO DAILY PRN PRN Reason: Constipation Omeprazole (Omeprazole 20 Mg Capsule.Dr) 20 mg PO DAILY@0630 [facility] Last Admin: 07/03/24 06:09 Dose: 20 mg Quetiapine Fumarate (Quetiapine Fumarate 300 Mg Tablet) 300 mg PO BEDTIME [facility] Last Admin: 07/03/24 20:00 Dose: 300 mg Senna (Sennosides 8.6 Mg Tablet) 17.2 mg PO BEDTIME [facility] Last Admin: 07/03/24 19:59 Dose: 17.2 mg Sodium Chloride (Sodium Chloride Tab 1 Gm Tablet) 1 gm PO TID [facility] Last Admin: 07/03/24 20:00 Dose: 1 gm Tranylcypromine Sulfate (Tranylcypromine Sulfate 10 Mg Tablet) 30 mg PO BID [facility] Last Admin: 07/03/24 19:59 Dose: 30 mg Trazodone HCl (Trazodone Hcl 50 Mg Tablet) 50 mg PO BEDTIME MRX1 PRN PRN Reason: Insomnia Last Admin: 07/01/24 20:39 Dose: 50 mg Allergies Allergies Allergy/AdvReac Type Severity Reaction Status Date / Time gabapentin Allergy side Verified 06/26/24 21:22 effect/sedation tyramine Allergy Hypertensio Uncoded 06/26/24 21:16 n Assessment & Plan Assessment & Plan (1) Major depression with psychotic features: Status: Acute Code(s): F32.3 - Major depressive disorder, single episode, severe with psychotic features (2) Pancytopenia: Status: Acute Code(s): D61.818 - Other pancytopenia (3) Atrial bigeminy: Status: Acute Code(s): I49.8 - Other specified cardiac arrhythmias (4) Gait disturbance: Status: Acute Code(s): R26.9 - Unspecified abnormalities of gait and mobility Plan Patient has a history chronic depression differential diagnosis would include major depression recurrent with psychotic features versus schizoaffective disorder. If patient had been taking dosage at home and I it appears Seroquel treatment was in adequate I would worry also about blood pressure and sedation effects. Trying get additional information from healthcare proxy outpatient psychiatrist see forget recent inpatient records. He is on [facility] instructed nursing he needs to be on an MAO diet allergies noted to gabapentin PT consult check B12 folate TSH physical reviewed case reviewed with Mary multiple chronic medical difficulties noted. Need to clarify if patient is normally his own decisionmaker. Patient might benefit from assisted living Consider Rexulti Vraylar for both antidepressant and antipsychotic augmentation 06/28: Lower Seroquel 200 mg at bedtime monitor response. Reviewed with pharmacy again necessity of obtaining P[facility] patient lethargic and withdrawn. 06/29: per nursing report, parnate started today. c/o left shoulder and lumbar back pain, tylenol inadequate. MD agrees to increase tylenol regimen. field staff manager to try to facilitate attendance at virtual [facility] today. otherwise continue current mgmt. 06/30/24 Chronic use of clonazepam he was taking 1.5 mg will increase back to 1 mg Seroquel 300 mg at bedtime try and coordinate care and get additional history from outpatient psychiatrist at [facility] or [facility] and also see if we can get inpatient records start Rexulti 0.25 mg in the morning 07/01/24 start rexulti 0.5 monitor tolerance vital sx gait and intensity of psychosis 07/02/2024 Check shoulder x-ray and rib films patient with gait disturbance history of question spinal stenosis continue Rexulti monitor for side effects monitor response 07/03/24 Pt c/o LLQ pain sig shoulder pain on parnate limited pain options poor gait - some dec psychosis cont rexulti 0.5 also on seroquel hs Reason for continued inpatient stay Substantial Risk for: harm to self, inability to function and rapid decompensation Time Spent With Patient Time: Total time managing care of this patient today ____ minutes.
[2024-07-03 22:16] VITALS: BP 149/66; PULSE 63; RESP 17; TEMP 36; O2SAT 94
[2024-07-04] MEDS: Omeprazole 20 MG CAPSULE.DR PO (06:00)
--- NOTE | 2024-07-04 08:27 | PM.EVENT ---
Event Note Date of Service: 07/04/24 Event Note: X-rays reviewed: Severe Glenohumeral joint arthritis Arthritis pain management: NSAIDs, ice, rest, Tylenol No acute management needed -- F/u out patient Time Spent With Patient Time: Total time managing care of this patient today ____ minutes.
[2024-07-04 08:53] VITALS: BP 141/77; PULSE 55; RESP 16; TEMP 36.4; O2SAT 94
[2024-07-04] MEDS: Brexpiprazole 1 MG TABLET 0.5 MG PO (08:58)
[2024-07-04] MEDS: Baclofen 10 MG TABLET 5 MG PO ×3 (08:59→20:04)
[2024-07-04] MEDS: Sodium Chloride Tab 1 GM TABLET PO ×3 (08:59→20:04)
[2024-07-04] MEDS: Docusate Sodium 100 MG CAPSULE PO ×2 (08:59→20:04)
--- NOTE | 2024-07-04 15:26 | P.PNPSI_ITS ---
Subjective Subjective Date of Service: 07/04/24 Reason For Visit: Schizoaffective disorder Interim History: Met with patient; discussed with team; reviewed chart Patient reports that he was overall doing well today until he had a phone call with a friend who also has depression but said he was getting better. He said at that phone call he got jealous and his jealousy resulted in depression. Patient however willing to discuss this and accept that jealousy can be a normal human condition and he does not have to feel overly guilty about it but rather can forgive himself for being human. Patient said earlier today he was actually reading and writing about forgiving oneself and welcomed the discussion. He said he still has some SI that it is not completely gone. Mental Status Exam Mental Status Exam Narrative: Mental Status Exam Appearance: Unkempt, glasses Behavior: Cooperative good eye contact psychomotor: Some psychomotor retardation Speech: Normal rate, volume and prosody Thought process logical and organized Thought content: Feeling badly about himself for jealousy Mood: Depressed Affect: Constricted SI: Not completely gone HI:denies VH/AH: Intermittent Intrusive thoughts Delusions: Question of delusional guilt... less intense Insight/judgment: Some impairment Memory/cog: Intact Diagnostics Vital Signs (24Hr): Vital Signs - 24 hr 07/03/24 22:16 07/04/24 08:53 Temperature 96.8 F 97.5 F Pulse Rate 63 55 Respiratory Rate 17 16 Blood Pressure 149/66 H 141/77 H Pulse Oximetry 94 94 Oxygen Delivery Method Room Air Room Air BMI result Body Mass Index 20.2 Labs 06/27/24 07:18 Imaging Radiology Impressions: ITS Impressions Shoulder X-Ray 07/02/24 09:20 IMPRESSION: Osteopenia. Severe osteoarthritis of the glenohumeral joint with findings suggestive of rotator cuff arthropathy. Electronically signed by: Dionicio Pacheco MD 07/03/2024 11:23 AM EDT RP Ribs X-Ray 07/03/24 09:20 IMPRESSION: No evidence of fracture of the left ribs. Electronically signed by: Dionicio Pacheco MD 07/03/2024 10:25 AM EDT Medications Medications Current Medications Acetaminophen (Acetaminophen 325 Mg Tablet) 650 mg PO Q4H PRN PRN Reason: Headache/Pain, Scale 1-10 Last Admin: 06/30/24 02:33 Dose: 650 mg Al Hydroxide/Mg Hydroxide (Magnesium Hydrox/Alum Hydrox 30 Ml Oral.Susp) 30 ml PO Q6H PRN PRN Reason: Heartburn/Nausea Last Admin: 06/29/24 16:48 Dose: 30 ml Baclofen (Baclofen 10 Mg Tablet) 5 mg PO TID [facility] Last Admin: 07/04/24 15:13 Dose: 4 mg Brexpiprazole (Brexpiprazole 1 Mg Tablet) 0.5 mg PO DAILY [facility] Last Admin: 07/04/24 08:58 Dose: 0.5 mg Clonazepam (Clonazepam 0.5 Mg Tablet) 0.5 mg PO BEDTIME PRN PRN Reason: Insomnia Last Admin: 06/30/24 21:49 Dose: 0.5 mg Clonazepam (Clonazepam 1 Mg Tablet) 1 mg PO BEDTIME [facility] Last Admin: 07/03/24 20:00 Dose: 1 mg Docusate Sodium (Docusate Sodium 100 Mg Capsule) 100 mg PO BID [facility] Last Admin: 07/04/24 08:59 Dose: 100 mg Lidocaine (Lidocaine 5 % Ointment 35 Gm) 1 appl TOPICAL Q6H PRN; Protocol PRN Reason: L shoulder pain Magnesium Hydroxide (Milk Of Magnesia 30 Ml Oral.Susp) 30 ml PO DAILY PRN PRN Reason: Constipation Omeprazole (Omeprazole 20 Mg Capsule.Dr) 20 mg PO DAILY@0630 [facility] Last Admin: 07/04/24 06:00 Dose: 20 mg Quetiapine Fumarate (Quetiapine Fumarate 300 Mg Tablet) 300 mg PO BEDTIME [facility] Last Admin: 07/03/24 20:00 Dose: 300 mg Senna (Sennosides 8.6 Mg Tablet) 17.2 mg PO BEDTIME [facility] Last Admin: 07/03/24 19:59 Dose: 17.2 mg Sodium Chloride (Sodium Chloride Tab 1 Gm Tablet) 1 gm PO TID [facility] Last Admin: 07/04/24 15:14 Dose: 1 gm Tranylcypromine Sulfate (Tranylcypromine Sulfate 10 Mg Tablet) 30 mg PO BID [facility] Last Admin: 07/04/24 08:59 Dose: 30 mg Trazodone HCl (Trazodone Hcl 50 Mg Tablet) 50 mg PO BEDTIME MRX1 PRN PRN Reason: Insomnia Last Admin: 07/01/24 20:39 Dose: 50 mg Allergies Allergies Allergy/AdvReac Type Severity Reaction Status Date / Time gabapentin Allergy side Verified 06/26/24 21:22 effect/sedation tyramine Allergy Hypertensio Uncoded 06/26/24 21:16 n Assessment & Plan Assessment & Plan (1) Major depression with psychotic features: Status: Acute Code(s): F32.3 - Major depressive disorder, single episode, severe with psychotic features (2) Pancytopenia: Status: Acute Code(s): D61.818 - Other pancytopenia (3) Atrial bigeminy: Status: Acute Code(s): I49.8 - Other specified cardiac arrhythmias (4) Gait disturbance: Status: Acute Code(s): R26.9 - Unspecified abnormalities of gait and mobility Plan Patient has a history chronic depression differential diagnosis would include major depression recurrent with psychotic features versus schizoaffective disorder. If patient had been taking dosage at home and I it appears Seroquel treatment was in adequate I would worry also about blood pressure and sedation effects. Trying get additional information from healthcare proxy outpatient psychiatrist see forget recent inpatient records. He is on [facility] instructed nursing he needs to be on an MAO diet allergies noted to gabapentin PT consult check B12 folate TSH physical reviewed case reviewed with Mary multiple chronic medical difficulties noted. Need to clarify if patient is normally his own decisionmaker. Patient might benefit from assisted living Consider Rexulti Vraylar for both antidepressant and antipsychotic augmentation 06/28: Lower Seroquel 200 mg at bedtime monitor response. Reviewed with pharmacy again necessity of obtaining P[facility] patient lethargic and withdrawn. 06/29: per nursing report, parnate started today. c/o left shoulder and lumbar back pain, tylenol inadequate. MD agrees to increase tylenol regimen. staff veterinarian to try to facilitate attendance at [facility] today. otherwise continue current mgmt. 06/30/24 Chronic use of clonazepam he was taking 1.5 mg will increase back to 1 mg Seroquel 300 mg at bedtime try and coordinate care and get additional history from outpatient psychiatrist at [facility] or [facility] and also see if we can get inpatient records start Rexulti 0.25 mg in the morning 07/01/24 start rexulti 0.5 monitor tolerance vital sx gait and intensity of psychosis 07/02/2024 Check shoulder x-ray and rib films patient with gait disturbance history of question spinal stenosis continue Rexulti monitor for side effects monitor response 07/03/24 Pt c/o LLQ pain sig shoulder pain on parnate limited pain options poor gait - some dec psychosis cont rexulti 0.5 also on seroquel hs 07/04 Patient reports that he was overall doing well today until he had a phone call with a friend who also has depression but said he was getting better. He said at that phone call he got jealous and his jealousy resulted in depression. Patient however willing to discuss this and accept that jealousy can be a normal human condition and he does not have to feel overly guilty about it but rather can forgive himself for being human. Patient said earlier today he was actually reading and writing about forgiving oneself and welcomed the discussion. He said he still has some SI that it is not completely gone. Patient educated on: diagnosis and medication risk/benefits Informed Consent: understands and further education needed Reason for continued inpatient stay Substantial Risk for: stable for discharge and rapid decompensation Time Spent With Patient Time: Total time managing care of this patient today ____ minutes.
--- NOTE | 2024-07-04 16:50 | P.EN_ITS ---
Event Note Date of Service: 07/04/24 Event Note: Pt is a 78-year-old male admitted to [facility] with hospitalist consult for worsening LLQ pain. Pt previously seen and evaluated on 06/27 for LUQ pain that has been intermittent for the past few months. KUB on 06/27 showed nonobstructive bowel gas pattern with moderate to large amount of stool within transverse and descending colon. Yesterday patient's pain apparently was worse than prior. However, pt had 3 bowel movements yesterday which seemed to have re lieved his symptoms. Today pt has offered no acute abdominal complaints, and pt is seen eating comfortably in the dining area. No nausea, vomiting, diarrhea. No acute intervention or treatment necessary at this time. Pt should continue on current bowel regimen with docusate 100 mg b.i.d. and senna at bedtime, as well as milk of magnesia p.r.n.. Thank you for allowing us to participate in the care of this pt please re-consult if any acute issue or need arises. Time Spent With Patient Time: Total time managing care of this patient today ____ minutes.
[2024-07-04 20:02] VITALS: BP 142/67; PULSE 59; RESP 16; TEMP 36.6; O2SAT 93
[2024-07-04] MEDS: QUEtiapine Fumarate 300 MG TABLET PO (20:04)
[2024-07-04] MEDS: clonazePAM 1 MG TABLET PO (20:05)
[2024-07-04] MEDS: Sennosides 8.6 MG TABLET 17.2 MG PO (20:05)
[2024-07-05] MEDS: Magnesium Hydrox/Alum Hydrox 30 ML ORAL.SUSP PO (04:22)
[2024-07-05] MEDS: Omeprazole 20 MG CAPSULE.DR PO (04:37)
[2024-07-05 08:22] VITALS: BP 108/54; PULSE 50; RESP 18; TEMP 36.4; O2SAT 96
[2024-07-05] MEDS: Sodium Chloride Tab 1 GM TABLET PO ×3 (08:39→21:24)
[2024-07-05] MEDS: Baclofen 10 MG TABLET 5 MG PO ×3 (08:40→21:24)
[2024-07-05] MEDS: Brexpiprazole 1 MG TABLET 0.5 MG PO (08:40)
--- NOTE | 2024-07-05 17:26 | HO.PSYCHPN ---
Subjective Subjective Date of Service: 07/05/24 Reason For Visit: Schizoaffective disorder Interim History: Met with patient; discussed with team Patient reports that he is feeling much better today; no SI which he says has resolved. Some right shoulder arthritic pain but patient says he will discuss with Dr. Quintanilla on return. Mental Status Exam Mental Status Exam Patient Appearance: Appropriate Patient Orientation: Person and Situation Level of Consciousness: Awake and Appropriate Patient Behavior: Appropriate, Cooperative and Good Eye Contact Mood Description: Calm and Appropriate Affect Description: Calm and Appropriate Patient Cognition Impaired: Yes Ability to Follow Directions: Good Speech Pattern: Clear Hallucinations: None Delusions: Not Present Thought Process: Intact Thought Content: positive for [place] and positive for Suicidal Ideation (None) Judgement: Fair Diagnostics Vital Signs (24Hr): Vital Signs - 24 hr 07/04/24 20:02 07/05/24 08:22 Temperature 97.8 F 97.6 F Pulse Rate 59 50 Respiratory Rate 16 18 Blood Pressure 142/67 H 108/54 L Pulse Oximetry 93 96 Oxygen Delivery Method Room Air Room Air BMI result Body Mass Index 20.2 Labs 06/27/24 07:18 Imaging Radiology Impressions: ITS Impressions Shoulder X-Ray 07/02/24 09:20 IMPRESSION: Osteopenia. Severe osteoarthritis of the glenohumeral joint with findings suggestive of rotator cuff arthropathy. Electronically signed by: Dionicio Pacheco MD 07/03/2024 11:23 AM EDT RP Ribs X-Ray 07/03/24 09:20 IMPRESSION: No evidence of fracture of the left ribs. Electronically signed by: Dionicio Pacheco MD 07/03/2024 10:25 AM EDT RP Medications Medications Current Medications Acetaminophen (Acetaminophen 325 Mg Tablet) 650 mg PO Q4H PRN PRN Reason: Headache/Pain, Scale 1-10 Last Admin: 06/30/24 02:33 Dose: 650 mg Al Hydroxide/Mg Hydroxide (Magnesium Hydrox/Alum Hydrox 30 Ml Oral.Susp) 30 ml PO Q6H PRN PRN Reason: Heartburn/Nausea Last Admin: 07/05/24 04:22 Dose: 30 ml Baclofen (Baclofen 10 Mg Tablet) 5 mg PO TID [facility] Last Admin: 07/05/24 15:05 Dose: 5 mg Brexpiprazole (Brexpiprazole 1 Mg Tablet) 0.5 mg PO DAILY [facility] Last Admin: 07/05/24 08:40 Dose: 0.5 mg Clonazepam (Clonazepam 0.5 Mg Tablet) 0.5 mg PO BEDTIME PRN PRN Reason: Insomnia Last Admin: 06/30/24 21:49 Dose: 0.5 mg Clonazepam (Clonazepam 1 Mg Tablet) 1 mg PO BEDTIME [facility] Last Admin: 07/04/24 20:05 Dose: 1 mg Docusate Sodium (Docusate Sodium 100 Mg Capsule) 100 mg PO BID [facility] Last Admin: 07/05/24 08:44 Dose: Not Given Lidocaine (Lidocaine 5 % Ointment 35 Gm) 1 appl TOPICAL Q6H PRN; Protocol PRN Reason: L shoulder pain Magnesium Hydroxide (Milk Of Magnesia 30 Ml Oral.Susp) 30 ml PO DAILY PRN PRN Reason: Constipation Omeprazole (Omeprazole 20 Mg Capsule.Dr) 20 mg PO DAILY@0630 [facility] Last Admin: 07/05/24 04:37 Dose: 20 mg Quetiapine Fumarate (Quetiapine Fumarate 300 Mg Tablet) 300 mg PO BEDTIME [facility] Last Admin: 07/04/24 20:04 Dose: 300 mg Senna (Sennosides 8.6 Mg Tablet) 17.2 mg PO BEDTIME [facility] Last Admin: 07/04/24 20:05 Dose: 17.2 mg Sodium Chloride (Sodium Chloride Tab 1 Gm Tablet) 1 gm PO TID [facility] Last Admin: 07/05/24 15:06 Dose: 1 gm Tranylcypromine Sulfate (Tranylcypromine Sulfate 10 Mg Tablet) 30 mg PO BID [facility] Last Admin: 07/05/24 08:39 Dose: 30 mg Trazodone HCl (Trazodone Hcl 50 Mg Tablet) 50 mg PO BEDTIME MRX1 PRN PRN Reason: Insomnia Last Admin: 07/01/24 20:39 Dose: 50 mg Allergies Allergies Allergy/AdvReac Type Severity Reaction Status Date / Time gabapentin Allergy side Verified 06/26/24 21:22 effect/sedation tyramine Allergy Hypertensio Uncoded 06/26/24 21:16 n Assessment & Plan Assessment & Plan (1) Major depression with psychotic features: Status: Acute Code(s): F32.3 - Major depressive disorder, single episode, severe with psychotic features (2) Pancytopenia: Status: Acute Code(s): D61.818 - Other pancytopenia (3) Atrial bigeminy: Status: Acute Code(s): I49.8 - Other specified cardiac arrhythmias (4) Gait disturbance: Status: Acute Code(s): R26.9 - Unspecified abnormalities of gait and mobility Plan Patient has a history chronic depression differential diagnosis would include major depression recurrent with psychotic features versus schizoaffective disorder. If patient had been taking dosage at home and I it appears Seroquel treatment was in adequate I would worry also about blood pressure and sedation effects. Trying get additional information from healthcare proxy outpatient psychiatrist see forget recent inpatient records. He is on [facility] instructed nursing he needs to be on an MAO diet allergies noted to gabapentin PT consult check B12 folate TSH physical reviewed case reviewed with Mary multiple chronic medical difficulties noted. Need to clarify if patient is normally his own decisionmaker. Patient might benefit from assisted living Consider Rexulti Vraylar for both antidepressant and antipsychotic augmentation 06/28: Lower Seroquel 200 mg at bedtime monitor response. Reviewed with pharmacy again necessity of obtaining Parn[facility] patient lethargic and withdrawn. 06/29: per nursing report, parnate started today. c/o left shoulder and lumbar back pain, tylenol inadequate. MD agrees to increase tylenol regimen. manager staffing to try to facilitate attendance at virtual [facility] today. otherwise continue current mgmt. 06/30/24 Chronic use of clonazepam he was taking 1.5 mg will increase back to 1 mg Seroquel 300 mg at bedtime try and coordinate care and get additional history from outpatient psychiatrist at [facility] and also see if we can get inpatient records start Rexulti 0.25 mg in the morning 07/01/24 start rexulti 0.5 monitor tolerance vital sx gait and intensity of psychosis 07/02/2024 Check shoulder x-ray and rib films patient with gait disturbance history of question spinal stenosis continue Rexulti monitor for side effects monitor response 07/03/24 Pt c/o LLQ pain sig shoulder pain on parnate limited pain options poor gait -some dec psychosis cont rexulti 0.5 also on seroquel hs 07/04 Patient reports that he was overall doing well today until he had a phone call with a friend who also has depression but said he was getting better. He said at that phone call he got jealous and his jealousy resulted in depression. Patient however willing to discuss this and accept that jealousy can be a normal human condition and he does not have to feel overly guilty about it but rather can forgive himself for being human. Patient said earlier today he was actually reading and writing about forgiving oneself and welcomed the discussion. He said he still has some SI that it is not completely gone. 07/05 doing better, no SI; continue tx plan Patient educated on: diagnosis and medical condition Informed Consent: understands Reason for continued inpatient stay Substantial Risk for: stable for discharge and rapid decompensation Time Spent With Patient Time: Total time managing care of this patient today ____ minutes.
[2024-07-05 20:00] VITALS: BP 111/76; PULSE 55; RESP 1; TEMP 36.3; O2SAT 97
[2024-07-05] MEDS: Docusate Sodium 100 MG CAPSULE PO (21:23)
[2024-07-05] MEDS: Sennosides 8.6 MG TABLET 17.2 MG PO (21:24)
[2024-07-05] MEDS: clonazePAM 1 MG TABLET PO (21:24)
[2024-07-05] MEDS: QUEtiapine Fumarate 300 MG TABLET PO (21:24)
[2024-07-05] MEDS: traZODone HCL 50 MG TABLET PO (21:24)
[2024-07-06] MEDS: Omeprazole 20 MG CAPSULE.DR PO (06:51)
[2024-07-06 08:00] VITALS: BP 103/54; PULSE 51; RESP 18; O2SAT 92
[2024-07-06] MEDS: Sodium Chloride Tab 1 GM TABLET PO ×3 (08:33→20:16)
[2024-07-06] MEDS: Baclofen 10 MG TABLET 5 MG PO ×3 (08:33→20:16)
[2024-07-06] MEDS: Brexpiprazole 1 MG TABLET 0.5 MG PO (08:34)
--- NOTE | 2024-07-06 14:56 | HO.PSYCHPN ---
Subjective Subjective Date of Service: 07/06/24 Reason For Visit: Schizoaffective disorder Subjective Notes: Conditional Voluntary Interim History: The nursing staff reported the patient carries a diagnosis of schizoaffective disorder have chronic delusions. The occupational therapist reported that he is doing well and he engaged in groups. He scored 4.2 on the [place] test and 22/30 on the [place] test. The staff reports that sometimes he is in the phone attending AA meetings over the phone or calling his impaired sister. On interview the patient denies new symptoms he looks internally preoccupied but easily redirectable. Mental Status Exam Mental Status Exam Patient Appearance: Disheveled and Appropriate Patient Orientation: Person and Situation Level of Consciousness: Awake and Appropriate Patient Behavior: Guarded and Passive Mood Description: Withdrawn Affect Description: Constricted Patient Cognition Impaired: Yes Ability to Follow Directions: Good Speech Pattern: Clear Hallucinations: None Delusions: Paranoid Ideation and Ideas of Reference Thought Process: Distracted and Slowed Thinking Thought Content: positive for [place] and positive for Poverty of Content Judgement: Fair Diagnostics Vital Signs (24Hr): Vital Signs - 24 hr 07/05/24 20:00 07/06/24 08:00 Temperature 97.4 F Pulse Rate 55 51 Respiratory Rate 1 L 18 Blood Pressure 111/76 103/54 L Pulse Oximetry 97 92 Oxygen Delivery Method Room Air Room Air BMI result Body Mass Index 20.2 Labs 06/27/24 07:18 Imaging Radiology Impressions: ITS Impressions Shoulder X-Ray 07/02/24 09:20 IMPRESSION: Osteopenia. Severe osteoarthritis of the glenohumeral joint with findings suggestive of rotator cuff arthropathy. Electronically signed by: Dionicio Pacheco MD 07/03/2024 11:23 AM EDT RP Ribs X-Ray 07/03/24 09:20 IMPRESSION: No evidence of fracture of the left ribs. Electronically signed by: Dionicio Pacheco MD 07/03/2024 10:25 AM EDT RP Medications Medications Current Medications Acetaminophen (Acetaminophen 325 Mg Tablet) 650 mg PO Q4H PRN PRN Reason: Headache/Pain, Scale 1-10 Last Admin: 06/30/24 02:33 Dose: 650 mg Al Hydroxide/Mg Hydroxide (Magnesium Hydrox/Alum Hydrox 30 Ml Oral.Susp) 30 ml PO Q6H PRN PRN Reason: Heartburn/Nausea Last Admin: 07/05/24 04:22 Dose: 30 ml Baclofen (Baclofen 10 Mg Tablet) 5 mg PO TID [facility] Last Admin: 07/06/24 14:07 Dose: 5 mg Brexpiprazole (Brexpiprazole 1 Mg Tablet) 0.5 mg PO DAILY [facility] Last Admin: 07/06/24 08:34 Dose: 0.5 mg Clonazepam (Clonazepam 0.5 Mg Tablet) 0.5 mg PO BEDTIME PRN PRN Reason: Insomnia Last Admin: 06/30/24 21:49 Dose: 0.5 mg Clonazepam (Clonazepam 1 Mg Tablet) 1 mg PO BEDTIME [facility] Last Admin: 07/05/24 21:24 Dose: 1 mg Docusate Sodium (Docusate Sodium 100 Mg Capsule) 100 mg PO BID [facility] Last Admin: 07/06/24 08:35 Dose: Not Given Lidocaine (Lidocaine 5 % Ointment 35 Gm) 1 appl TOPICAL Q6H PRN; Protocol PRN Reason: L shoulder pain Magnesium Hydroxide (Milk Of Magnesia 30 Ml Oral.Susp) 30 ml PO DAILY PRN PRN Reason: Constipation Omeprazole (Omeprazole 20 Mg Capsule.Dr) 20 mg PO DAILY@0630 [facility] Last Admin: 07/06/24 06:51 Dose: 20 mg Quetiapine Fumarate (Quetiapine Fumarate 300 Mg Tablet) 300 mg PO BEDTIME [facility] Last Admin: 07/05/24 21:24 Dose: 300 mg Senna (Sennosides 8.6 Mg Tablet) 17.2 mg PO BEDTIME [facility] Last Admin: 07/05/24 21:24 Dose: 17.2 mg Sodium Chloride (Sodium Chloride Tab 1 Gm Tablet) 1 gm PO TID [facility] Last Admin: 07/06/24 14:07 Dose: 1 gm Tranylcypromine Sulfate (Tranylcypromine Sulfate 10 Mg Tablet) 30 mg PO BID [facility] Last Admin: 07/06/24 08:33 Dose: 30 mg Trazodone HCl (Trazodone Hcl 50 Mg Tablet) 50 mg PO BEDTIME MRX1 PRN PRN Reason: Insomnia Last Admin: 07/05/24 21:24 Dose: 50 mg Allergies Allergies Allergy/AdvReac Type Severity Reaction Status Date / Time gabapentin Allergy side Verified 06/26/24 21:22 effect/sedation tyramine Allergy Hypertensio Uncoded 06/26/24 21:16 n Assessment & Plan Assessment & Plan (1) Major depression with psychotic features: Status: Acute Code(s): F32.3 - Major depressive disorder, single episode, severe with psychotic features (2) Pancytopenia: Status: Acute Code(s): D61.818 - Other pancytopenia (3) Atrial bigeminy: Status: Acute Code(s): I49.8 - Other specified cardiac arrhythmias (4) Gait disturbance: Status: Acute Code(s): R26.9 - Unspecified abnormalities of gait and mobility Plan Patient has a history chronic depression differential diagnosis would include major depression recurrent with psychotic features versus schizoaffective disorder. If patient had been taking dosage at home and I it appears Seroquel treatment was in adequate I would worry also about blood pressure and sedation effects. Trying get additional information from healthcare proxy outpatient psychiatrist see forget recent inpatient records. He is on [facility] instructed nursing he needs to be on an MAO diet allergies noted to gabapentin PT consult check B12 folate TSH physical reviewed case reviewed with Mary multiple chronic medical difficulties noted. Need to clarify if patient is normally his own decisionmaker. Patient might benefit from assisted living Consider Rexulti Vraylar for both antidepressant and antipsychotic augmentation 06/28: Lower Seroquel 200 mg at bedtime monitor response. Reviewed with pharmacy again necessity of obtaining P[facility] patient lethargic and withdrawn. 06/29: per nursing report, parnate started today. c/o left shoulder and lumbar back pain, tylenol inadequate. MD agrees to increase tylenol regimen. catering staff member to try to facilitate attendance at virtual [facility] today. otherwise continue current mgmt. 06/30/24 Chronic use of clonazepam he was taking 1.5 mg will increase back to 1 mg Seroquel 300 mg at bedtime try and coordinate care and get additional history from outpatient psychiatrist at [facility] and also see if we can get inpatient records start Rexulti 0.25 mg in the morning 07/01/24 start rexulti 0.5 monitor tolerance vital sx gait and intensity of psychosis 07/02/2024 Check shoulder x-ray and rib films patient with gait disturbance history of question spinal stenosis continue Rexulti monitor for side effects monitor response 07/03/24 Pt c/o LLQ pain sig shoulder pain on parnate limited pain options poor gait -some dec psychosis cont rexulti 0.5 also on seroquel hs 07/04 Patient reports that he was overall doing well today until he had a phone call with a friend who also has depression but said he was getting better. He said at that phone call he got jealous and his jealousy resulted in depression. Patient however willing to discuss this and accept that jealousy can be a normal human condition and he does not have to feel overly guilty about it but rather can forgive himself for being human. Patient said earlier today he was actually reading and writing about forgiving oneself and welcomed the discussion. He said he still has some SI that it is not completely gone. 07/05 doing better, no SI; continue tx plan 07/06 keep same treatment Reason for continued inpatient stay Substantial Risk for: inability to function, rapid decompensation and med/psych decompensation Time Spent With Patient Time: Total time managing care of this patient today __20__ minutes.
[2024-07-06 19:55] VITALS: BP 132/68; PULSE 61; RESP 16; TEMP 36.4; O2SAT 94
[2024-07-06] MEDS: clonazePAM 1 MG TABLET PO (20:16)
[2024-07-06] MEDS: Sennosides 8.6 MG TABLET 17.2 MG PO (20:16)
[2024-07-06] MEDS: Docusate Sodium 100 MG CAPSULE PO (20:16)
[2024-07-06] MEDS: QUEtiapine Fumarate 300 MG TABLET PO (20:16)
[2024-07-07] MEDS: Omeprazole 20 MG CAPSULE.DR PO (05:56)
[2024-07-07] MEDS: Baclofen 10 MG TABLET 5 MG PO ×3 (08:07→21:37)
[2024-07-07] MEDS: Brexpiprazole 1 MG TABLET 0.5 MG PO (08:08)
[2024-07-07] MEDS: Sodium Chloride Tab 1 GM TABLET PO ×3 (08:09→21:37)
[2024-07-07 09:00] VITALS: BP 124/79; PULSE 59; RESP 16; TEMP 35.5; O2SAT 98
--- NOTE | 2024-07-07 15:32 | P.PNPSI_ITS ---
Subjective Subjective Date of Service: 07/07/24 Reason For Visit: Schizoaffective disorder Subjective Notes: Conditional Voluntary Interim History: The nursing staff reported the patient denies anxiety he had been pleasant attending to groups slept 6 hours he states that he feels better. The family welfare social work professor reported that he gave a different report. He feels more depressed but he does not look depressed. He was seen by PT and suggested outpatient treatment. Ortho also saw him and reported that he can not use NSAIDs. The occupational therapist reported that he attends to groups and he is cooperative and pleasant. On interview the patient reports of chronic pain so I discussed the case and he agreed to take Tylenol 325 p.o. t.i.d. Mental Status Exam Mental Status Exam Patient Appearance: Appropriate Patient Orientation: Person and Situation Level of Consciousness: Awake and Appropriate Patient Behavior: Guarded and Passive Mood Description: Withdrawn Affect Description: Constricted Patient Cognition Impaired: Yes Ability to Follow Directions: Good Speech Pattern: Clear Hallucinations: None Delusions: Not Present Thought Content: positive for [place] and positive for Poverty of Content Judgement: Fair Diagnostics Vital Signs (24Hr): Vital Signs - 24 hr 07/06/24 19:55 07/07/24 09:00 Temperature 97.6 F 96 F L Pulse Rate 61 59 Respiratory Rate 16 16 Blood Pressure 132/68 124/79 Pulse Oximetry 94 98 Oxygen Delivery Method Room Air Room Air BMI result Body Mass Index 20.2 Labs 06/27/24 07:18 Imaging Radiology Impressions: ITS Impressions Shoulder X-Ray 07/02/24 09:20 IMPRESSION: Osteopenia. Severe osteoarthritis of the glenohumeral joint with findings suggestive of rotator cuff arthropathy. Electronically signed by: Dionicio Pacheco MD 07/03/2024 11:23 AM EDT RP Ribs X-Ray 07/03/24 09:20 IMPRESSION: No evidence of fracture of the left ribs. Electronically signed by: Dionicio Pacheco MD 07/03/2024 10:25 AM EDT RP Medications Medications Current Medications Acetaminophen (Acetaminophen 325 Mg Tablet) 650 mg PO Q4H PRN PRN Reason: Headache/Pain, Scale 1-10 Last Admin: 06/30/24 02:33 Dose: 650 mg Acetaminophen (Acetaminophen 325 Mg Tablet) 325 mg PO TID [facility] Al Hydroxide/Mg Hydroxide (Magnesium Hydrox/Alum Hydrox 30 Ml Oral.Susp) 30 ml PO Q6H PRN PRN Reason: Heartburn/Nausea Last Admin: 07/05/24 04:22 Dose: 30 ml Baclofen (Baclofen 10 Mg Tablet) 5 mg PO TID [facility] Last Admin: 07/07/24 08:07 Dose: 5 mg Brexpiprazole (Brexpiprazole 1 Mg Tablet) 0.5 mg PO DAILY [facility] Last Admin: 07/07/24 08:08 Dose: 0.5 mg Clonazepam (Clonazepam 0.5 Mg Tablet) 0.5 mg PO BEDTIME PRN PRN Reason: Insomnia Last Admin: 06/30/24 21:49 Dose: 0.5 mg Clonazepam (Clonazepam 1 Mg Tablet) 1 mg PO BEDTIME [facility] Last Admin: 07/06/24 20:16 Dose: 1 mg Docusate Sodium (Docusate Sodium 100 Mg Capsule) 100 mg PO BID [facility] Last Admin: 07/07/24 08:12 Dose: Not Given Lidocaine (Lidocaine 5 % Ointment 35 Gm) 1 appl TOPICAL Q6H PRN; Protocol PRN Reason: L shoulder pain Magnesium Hydroxide (Milk Of Magnesia 30 Ml Oral.Susp) 30 ml PO DAILY PRN PRN Reason: Constipation Omeprazole (Omeprazole 20 Mg Capsule.Dr) 20 mg PO DAILY@0630 [facility] Last Admin: 07/07/24 05:56 Dose: 20 mg Quetiapine Fumarate (Quetiapine Fumarate 300 Mg Tablet) 300 mg PO BEDTIME [facility] Last Admin: 07/06/24 20:16 Dose: 300 mg Senna (Sennosides 8.6 Mg Tablet) 17.2 mg PO BEDTIME [facility] Last Admin: 07/06/24 20:16 Dose: 17.2 mg Sodium Chloride (Sodium Chloride Tab 1 Gm Tablet) 1 gm PO TID [facility] Last Admin: 07/07/24 08:09 Dose: 1 gm Tranylcypromine Sulfate (Tranylcypromine Sulfate 10 Mg Tablet) 30 mg PO BID [facility] Last Admin: 07/07/24 08:09 Dose: 30 mg Trazodone HCl (Trazodone Hcl 50 Mg Tablet) 50 mg PO BEDTIME MRX1 PRN PRN Reason: Insomnia Last Admin: 07/05/24 21:24 Dose: 50 mg Allergies Allergies Allergy/AdvReac Type Severity Reaction Status Date / Time gabapentin Allergy side Verified 06/26/24 21:22 effect/sedation tyramine Allergy Hypertensio Uncoded 06/26/24 21:16 n Assessment & Plan Assessment & Plan (1) Major depression with psychotic features: Status: Acute Code(s): F32.3 - Major depressive disorder, single episode, severe with psychotic features (2) Pancytopenia: Status: Acute Code(s): D61.818 - Other pancytopenia (3) Atrial bigeminy: Status: Acute Code(s): I49.8 - Other specified cardiac arrhythmias (4) Gait disturbance: Status: Acute Code(s): R26.9 - Unspecified abnormalities of gait and mobility Plan Patient has a history chronic depression differential diagnosis would include major depression recurrent with psychotic features versus schizoaffective disorder. If patient had been taking dosage at home and I it appears Seroquel treatment was in adequate I would worry also about blood pressure and sedation effects. Trying get additional information from healthcare proxy outpatient psychiatrist see forget recent inpatient records. He is on [facility] instructed nursing he needs to be on an MAO diet allergies noted to gabapentin PT consult check B12 folate TSH physical reviewed case reviewed with Mary multiple chronic medical difficulties noted. Need to clarify if patient is normally his own decisionmaker. Patient might benefit from assisted living Consider Rexulti Vraylar for both antidepressant and antipsychotic augmentation 06/28: Lower Seroquel 200 mg at bedtime monitor response. Reviewed with pharmacy again necessity of obtaining P[facility] patient lethargic and withdrawn. 06/29: per nursing report, parnate started today. c/o left shoulder and lumbar back pain, tylenol inadequate. MD agrees to increase tylenol regimen. administrative staff supervisor to try to facilitate attendance at virtual [facility] today. otherwise continue current mgmt. 06/30/24 Chronic use of clonazepam he was taking 1.5 mg will increase back to 1 mg Seroquel 300 mg at bedtime try and coordinate care and get additional history from outpatient psychiatrist at [facility] or [facility] and also see if we can get inpatient records start Rexulti 0.25 mg in the morning 07/01/24 start rexulti 0.5 monitor tolerance vital sx gait and intensity of psychosis 07/02/2024 Check shoulder x-ray and rib films patient with gait disturbance history of question spinal stenosis continue Rexulti monitor for side effects monitor response 07/03/24 Pt c/o LLQ pain sig shoulder pain on parnate limited pain options poor gait - some dec psychosis cont rexulti 0.5 also on seroquel hs 07/04 Patient reports that he was overall doing well today until he had a phone call with a friend who also has depression but said he was getting better. He said at that phone call he got jealous and his jealousy resulted in depression. Patient however willing to discuss this and accept that jealousy can be a normal human condition and he does not have to feel overly guilty about it but rather can forgive himself for being human. Patient said earlier today he was actually reading and writing about forgiving oneself and welcomed the discussion. He said he still has some SI that it is not completely gone. 07/05 doing better, no SI; continue tx plan 07/06 keep same treatment 07/07 start Tylenol 325 p.o. t.i.d. Reason for continued inpatient stay Substantial Risk for: inability to function, rapid decompensation and med/psych decompensation Time Spent With Patient Time: Total time managing care of this patient today _20___ minutes.
[2024-07-07] MEDS: Acetaminophen 325 MG TABLET PO ×2 (16:15→21:36)
[2024-07-07 20:00] VITALS: BP 150/63; PULSE 66; RESP 18; TEMP 36.3; O2SAT 95
[2024-07-07] MEDS: Sennosides 8.6 MG TABLET 17.2 MG PO (21:36)
[2024-07-07] MEDS: Docusate Sodium 100 MG CAPSULE PO (21:36)
[2024-07-07] MEDS: QUEtiapine Fumarate 300 MG TABLET PO (21:36)
[2024-07-07] MEDS: clonazePAM 1 MG TABLET PO (21:37)
[2024-07-07] MEDS: Magnesium Hydrox/Alum Hydrox 30 ML ORAL.SUSP PO (21:39)
[2024-07-08] MEDS: Omeprazole 20 MG CAPSULE.DR PO (06:27)
[2024-07-08 08:00] VITALS: BP 161/70; PULSE 64; RESP 18; TEMP 36; O2SAT 96
[2024-07-08] MEDS: Brexpiprazole 1 MG TABLET 0.5 MG PO (08:57)
[2024-07-08] MEDS: Acetaminophen 325 MG TABLET PO (08:58)
[2024-07-08] MEDS: Docusate Sodium 100 MG CAPSULE PO ×2 (08:58→20:37)
[2024-07-08] MEDS: Sodium Chloride Tab 1 GM TABLET PO ×3 (08:58→20:41)
[2024-07-08] MEDS: Baclofen 10 MG TABLET 5 MG PO ×3 (09:00→20:42)
--- NOTE | 2024-07-08 14:02 | P.PNPSI_ITS ---
Subjective Subjective Date of Service: 07/08/24 Reason For Visit: Schizoaffective disorder Interim History: The nursing staff reported the patient had been complaining of pain, that the standing Tylenol has not helping. The social work case manager reported that he has going to probably be discharged next week. The occupational therapist reported that he is doing very well on groups. On interview the patient reported nightmares at night and agreed to try prazosin and increase Tylenol for chronic pain Mental Status Exam Mental Status Exam Patient Appearance: Appropriate Patient Orientation: Person and Situation Level of Consciousness: Awake and Appropriate Patient Behavior: Guarded and Passive Mood Description: Withdrawn Affect Description: Blunted Patient Cognition Impaired: Yes Ability to Follow Directions: Good Speech Pattern: Clear Hallucinations: None Delusions: Ideas of Reference Thought Process: Distracted and Slowed Thinking Thought Content: positive for [place] and positive for Poverty of Content Judgement: Fair Diagnostics Vital Signs (24Hr): Vital Signs - 24 hr 07/07/24 20:00 07/08/24 08:00 Temperature 97.3 F 96.8 F Pulse Rate 66 64 Respiratory Rate 18 18 Blood Pressure 150/63 H 161/70 H Pulse Oximetry 95 96 Oxygen Delivery Method Room Air Room Air BMI result Body Mass Index 20.2 Labs 06/27/24 07:18 Imaging Radiology Impressions: ITS Impressions Shoulder X-Ray 07/02/24 09:20 IMPRESSION: Osteopenia. Severe osteoarthritis of the glenohumeral joint with findings suggestive of rotator cuff arthropathy. Electronically signed by: Dionicio Pacheco MD 07/03/2024 11:23 AM EDT RP Ribs X-Ray 07/03/24 09:20 IMPRESSION: No evidence of fracture of the left ribs. Electronically signed by: Dionicio Pcaheco MD 07/03/2024 10:25 AM EDT Medications Medications Current Medications Acetaminophen (Acetaminophen 325 Mg Tablet) 650 mg PO Q4H PRN PRN Reason: Headache/Pain, Scale 1-10 Last Admin: 06/30/24 02:33 Dose: 650 mg Acetaminophen (Acetaminophen 325 Mg Tablet) 325 mg PO TID [facility] Last Admin: 07/08/24 08:58 Dose: 325 mg Al Hydroxide/Mg Hydroxide (Magnesium Hydrox/Alum Hydrox 30 Ml Oral.Susp) 30 ml PO Q6H PRN PRN Reason: Heartburn/Nausea Last Admin: 07/07/24 21:39 Dose: 30 ml Baclofen (Baclofen 10 Mg Tablet) 5 mg PO TID [facility] Last Admin: 07/08/24 09:00 Dose: 5 mg Brexpiprazole (Brexpiprazole 1 Mg Tablet) 0.5 mg PO DAILY [facility] Last Admin: 07/08/24 08:57 Dose: 0.5 mg Clonazepam (Clonazepam 0.5 Mg Tablet) 0.5 mg PO BEDTIME PRN PRN Reason: Insomnia Last Admin: 06/30/24 21:49 Dose: 0.5 mg Clonazepam (Clonazepam 1 Mg Tablet) 1 mg PO BEDTIME [facility] Last Admin: 07/07/24 21:37 Dose: 1 mg Docusate Sodium (Docusate Sodium 100 Mg Capsule) 100 mg PO BID [facility] Last Admin: 07/08/24 08:58 Dose: 100 mg Lidocaine (Lidocaine 5 % Ointment 35 Gm) 1 appl TOPICAL Q6H PRN; Protocol PRN Reason: L shoulder pain Magnesium Hydroxide (Milk Of Magnesia 30 Ml Oral.Susp) 30 ml PO DAILY PRN PRN Reason: Constipation Omeprazole (Omeprazole 20 Mg Capsule.Dr) 20 mg PO DAILY@0630 [facility] Last Admin: 07/08/24 06:27 Dose: 20 mg Quetiapine Fumarate (Quetiapine Fumarate 300 Mg Tablet) 300 mg PO BEDTIME [facility] Last Admin: 07/07/24 21:36 Dose: 300 mg Senna (Sennosides 8.6 Mg Tablet) 17.2 mg PO BEDTIME [facility] Last Admin: 07/07/24 21:36 Dose: 17.2 mg Sodium Chloride (Sodium Chloride Tab 1 Gm Tablet) 1 gm PO TID [facility] Last Admin: 07/08/24 08:58 Dose: 1 gm Tranylcypromine Sulfate (Tranylcypromine Sulfate 10 Mg Tablet) 30 mg PO BID [facility] Last Admin: 07/08/24 08:58 Dose: 30 mg Trazodone HCl (Trazodone Hcl 50 Mg Tablet) 50 mg PO BEDTIME MRX1 PRN PRN Reason: Insomnia Last Admin: 07/05/24 21:24 Dose: 50 mg Allergies Allergies Allergy/AdvReac Type Severity Reaction Status Date / Time gabapentin Allergy side Verified 06/26/24 21:22 effect/sedation tyramine Allergy Hypertensio Uncoded 06/26/24 21:16 n Assessment & Plan Assessment & Plan (1) Major depression with psychotic features: Status: Acute Code(s): F32.3 - Major depressive disorder, single episode, severe with psychotic features (2) Pancytopenia: Status: Acute Code(s): D61.818 - Other pancytopenia (3) Atrial bigeminy: Status: Acute Code(s): I49.8 - Other specified cardiac arrhythmias (4) Gait disturbance: Status: Acute Code(s): R26.9 - Unspecified abnormalities of gait and mobility Plan Patient has a history chronic depression differential diagnosis would include major depression recurrent with psychotic features versus schizoaffective disorder. If patient had been taking dosage at home and I it appears Seroquel treatment was in adequate I would worry also about blood pressure and sedation effects. Trying get additional information from healthcare proxy outpatient psychiatrist see forget recent inpatient records. He is on [facility] instructed nursing he needs to be on an MAO diet allergies noted to gabapentin PT consult check B12 folate TSH physical reviewed case reviewed with Mary multiple chronic medical difficulties noted. Need to clarify if patient is normally his own decisionmaker. Patient might benefit from assisted living Consider Rexulti Vraylar for both antidepressant and antipsychotic augmentation 06/28: Lower Seroquel 200 mg at bedtime monitor response. Reviewed with pharmacy again necessity of obtaining [facility] patient lethargic and withdrawn. 06/29: per nursing report, parnate started today. c/o left shoulder and lumbar back pain, tylenol inadequate. MD agrees to increase tylenol regimen. staff readiness officer to try to facilitate attendance at virtual [facility] today. otherwise continue current mgmt. 06/30/24 Chronic use of clonazepam he was taking 1.5 mg will increase back to 1 mg Seroquel 300 mg at bedtime try and coordinate care and get additional history from outpatient psychiatrist at [facility] or [facility] and also see if we can get inpatient records start Rexulti 0.25 mg in the morning 07/01/24 start rexulti 0.5 monitor tolerance vital sx gait and intensity of psychosis 07/02/2024 Check shoulder x-ray and rib films patient with gait disturbance history of question spinal stenosis continue Rexulti monitor for side effects monitor response 07/03/24 Pt c/o LLQ pain sig shoulder pain on parnate limited pain options poor gait - some dec psychosis cont rexulti 0.5 also on seroquel hs 07/04 Patient reports that he was overall doing well today until he had a phone call with a friend who also has depression but said he was getting better. He said at that phone call he got jealous and his jealousy resulted in depression. Patient however willing to discuss this and accept that jealousy can be a normal human condition and he does not have to feel overly guilty about it but rather can forgive himself for being human. Patient said earlier today he was actually reading and writing about forgiving oneself and welcomed the discussion. He said he still has some SI that it is not completely gone. 07/05 doing better, no SI; continue tx plan 07/07 start prazosin 2 mg p.o. q.h.s. and increase Tylenol up to 650 b.i.d. Reason for continued inpatient stay Substantial Risk for: inability to function, rapid decompensation and med/psych decompensation Time Spent With Patient Time: Total time managing care of this patient today __20__ minutes.
[2024-07-08] MEDS: Acetaminophen 325 MG TABLET 650 MG PO ×2 (15:35→20:39)
[2024-07-08 20:00] VITALS: BP 141/74; PULSE 59; RESP 59; TEMP 36.3; O2SAT 95
[2024-07-08 20:40] VITALS: BP 141/74
[2024-07-08] MEDS: Sennosides 8.6 MG TABLET 17.2 MG PO (20:40)
[2024-07-08] MEDS: Prazosin HCL 1 MG CAPSULE 2 MG PO (20:40)
[2024-07-08] MEDS: QUEtiapine Fumarate 300 MG TABLET PO (20:41)
[2024-07-08] MEDS: clonazePAM 1 MG TABLET PO (20:42)
[2024-07-09] MEDS: Omeprazole 20 MG CAPSULE.DR PO (06:23)
[2024-07-09 08:00] VITALS: BP 131/73; PULSE 59; RESP 18; TEMP 36.8; O2SAT 99
[2024-07-09] MEDS: Brexpiprazole 1 MG TABLET 0.5 MG PO (08:33)
[2024-07-09] MEDS: Docusate Sodium 100 MG CAPSULE PO (08:34)
[2024-07-09] MEDS: Acetaminophen 325 MG TABLET 650 MG PO ×3 (08:34→20:42)
[2024-07-09] MEDS: Baclofen 10 MG TABLET 5 MG PO ×3 (08:35→20:42)
[2024-07-09] MEDS: Sodium Chloride Tab 1 GM TABLET PO ×3 (08:53→20:41)
[2024-07-09 15:55] VITALS: BMI 20.7
--- NOTE | 2024-07-09 16:33 | HO.PSYCHPN ---
Subjective Subjective Date of Service: 07/09/24 Reason For Visit: Schizoaffective disorder Subjective Notes: Conditional Voluntary Interim History: The nursing staff reported the patient had been compliant with treatment with good appetite attended to groups. He reports pain 10/22. The social work therapist reported that yesterday she had a conversation and he reported that he was feeling suicidal not ready for discharge. Today we had an interview with the social work therapist and myself and explained about discharge planning he was in agreement to leave on Saturday. No major changes in his mental status we are going to increase the prazosin up to 5 mg since he still having nightmares. Mental Status Exam Mental Status Exam Patient Appearance: Appropriate Patient Orientation: Person and Situation Level of Consciousness: Awake and Appropriate Patient Behavior: Guarded and Passive Mood Description: Withdrawn Affect Description: Constricted Patient Cognition Impaired: Yes Ability to Follow Directions: Good Speech Pattern: Clear Hallucinations: None Delusions: Paranoid Ideation and Ideas of Reference Thought Process: Distracted and Slowed Thinking Thought Content: positive for [place] and positive for Poverty of Content Judgement: Fair Diagnostics Vital Signs (24Hr): Vital Signs - 24 hr 07/08/24 20:00 07/08/24 20:40 07/09/24 08:00 Temperature 97.3 F 98.2 F Pulse Rate 59 59 Respiratory Rate 59 H 18 Blood Pressure 141/74 H 141/74 H 131/73 Pulse Oximetry 95 99 Oxygen Delivery Method Room Air Room Air BMI result Body Mass Index 20.7 Labs 06/27/24 07:18 Imaging Radiology Impressions: ITS Impressions Shoulder X-Ray 07/02/24 09:20 IMPRESSION: Osteopenia. Severe osteoarthritis of the glenohumeral joint with findings suggestive of rotator cuff arthropathy. Electronically signed by: Dionicio Pacheco MD 07/03/2024 11:23 AM EDT RP Ribs X-Ray 07/03/24 09:20 IMPRESSION: No evidence of fracture of the left ribs. Electronically signed by: Dionicio Pacheco MD 07/03/2024 10:25 AM EDT RP Medications Medications Current Medications Acetaminophen (Acetaminophen 325 Mg Tablet) 650 mg PO Q4H PRN PRN Reason: Headache/Pain, Scale 1-10 Last Admin: 06/30/24 02:33 Dose: 650 mg Acetaminophen (Acetaminophen 325 Mg Tablet) 650 mg PO TID [facility] Last Admin: 07/09/24 15:04 Dose: 650 mg Al Hydroxide/Mg Hydroxide (Magnesium Hydrox/Alum Hydrox 30 Ml Oral.Susp) 30 ml PO Q6H PRN PRN Reason: Heartburn/Nausea Last Admin: 07/07/24 21:39 Dose: 30 ml Baclofen (Baclofen 10 Mg Tablet) 5 mg PO TID [facility] Last Admin: 07/09/24 15:04 Dose: 5 mg Brexpiprazole (Brexpiprazole 1 Mg Tablet) 0.5 mg PO DAILY [facility] Last Admin: 07/09/24 08:33 Dose: 0.5 mg Clonazepam (Clonazepam 0.5 Mg Tablet) 0.5 mg PO BEDTIME PRN PRN Reason: Insomnia Last Admin: 06/30/24 21:49 Dose: 0.5 mg Clonazepam (Clonazepam 1 Mg Tablet) 1 mg PO BEDTIME [facility] Last Admin: 07/08/24 20:42 Dose: 1 mg Docusate Sodium (Docusate Sodium 100 Mg Capsule) 100 mg PO BID [facility] Last Admin: 07/09/24 08:34 Dose: 100 mg Lidocaine (Lidocaine 5 % Ointment 35 Gm) 1 appl TOPICAL Q6H PRN; Protocol PRN Reason: L shoulder pain Magnesium Hydroxide (Milk Of Magnesia 30 Ml Oral.Susp) 30 ml PO DAILY PRN PRN Reason: Constipation Omeprazole (Omeprazole 20 Mg Capsule.Dr) 20 mg PO DAILY@0630 [facility] Last Admin: 07/09/24 06:23 Dose: 20 mg Prazosin HCl (Prazosin Hcl 1 Mg Capsule) 2 mg PO BEDTIME [facility]; Protocol Last Admin: 07/08/24 20:40 Dose: 2 mg Quetiapine Fumarate (Quetiapine Fumarate 300 Mg Tablet) 300 mg PO BEDTIME [facility] Last Admin: 07/08/24 20:41 Dose: 300 mg Senna (Sennosides 8.6 Mg Tablet) 17.2 mg PO BEDTIME [facility] Last Admin: 07/08/24 20:40 Dose: 17.2 mg Sodium Chloride (Sodium Chloride Tab 1 Gm Tablet) 1 gm PO TID [facility] Last Admin: 07/09/24 15:04 Dose: 1 gm Tranylcypromine Sulfate (Tranylcypromine Sulfate 10 Mg Tablet) 30 mg PO BID [facility] Last Admin: 07/09/24 08:56 Dose: 30 mg Trazodone HCl (Trazodone Hcl 50 Mg Tablet) 50 mg PO BEDTIME MRX1 PRN PRN Reason: Insomnia Last Admin: 07/05/24 21:24 Dose: 50 mg Allergies Allergies Allergy/AdvReac Type Severity Reaction Status Date / Time gabapentin Allergy side Verified 06/26/24 21:22 effect/sedation tyramine Allergy Hypertensio Uncoded 06/26/24 21:16 n Assessment & Plan Assessment & Plan (1) Major depression with psychotic features: Status: Acute Code(s): F32.3 - Major depressive disorder, single episode, severe with psychotic features (2) Pancytopenia: Status: Acute Code(s): D61.818 - Other pancytopenia (3) Atrial bigeminy: Status: Acute Code(s): I49.8 - Other specified cardiac arrhythmias (4) Gait disturbance: Status: Acute Code(s): R26.9 - Unspecified abnormalities of gait and mobility Plan Patient has a history chronic depression differential diagnosis would include major depression recurrent with psychotic features versus schizoaffective disorder. If patient had been taking dosage at home and I it appears Seroquel treatment was in adequate I would worry also about blood pressure and sedation effects. Trying get additional information from healthcare proxy outpatient psychiatrist see forget recent inpatient records. He is on [facility] instructed nursing he needs to be on an MAO diet allergies noted to gabapentin PT consult check B12 folate TSH physical reviewed case reviewed with Mary multiple chronic medical difficulties noted. Need to clarify if patient is normally his own decisionmaker. Patient might benefit from assisted living Consider Rexulti Nathanlaosvaldo for both antidepressant and antipsychotic augmentation 06/28: Lower Seroquel 200 mg at bedtime monitor response. Reviewed with pharmacy again necessity of obtaining [facility] patient lethargic and withdrawn. 06/29: per nursing report, parnate started today. c/o left shoulder and lumbar back pain, tylenol inadequate. MD agrees to increase tylenol regimen. staff development manager to try to facilitate attendance at [facility] today. otherwise continue current mgmt. 06/30/24 Chronic use of clonazepam he was taking 1.5 mg will increase back to 1 mg Seroquel 300 mg at bedtime try and coordinate care and get additional history from outpatient psychiatrist at [facility] and also see if we can get inpatient records start Rexulti 0.25 mg in the morning 07/01/24 start rexulti 0.5 monitor tolerance vital sx gait and intensity of psychosis 07/02/2024 Check shoulder x-ray and rib films patient with gait disturbance history of question spinal stenosis continue Rexulti monitor for side effects monitor response 07/03/24 Pt c/o LLQ pain sig shoulder pain on parnate limited pain options poor gait -some dec psychosis cont rexulti 0.5 also on seroquel hs 07/04 Patient reports that he was overall doing well today until he had a phone call with a friend who also has depression but said he was getting better. He said at that phone call he got jealous and his jealousy resulted in depression. Patient however willing to discuss this and accept that jealousy can be a normal human condition and he does not have to feel overly guilty about it but rather can forgive himself for being human. Patient said earlier today he was actually reading and writing about forgiving oneself and welcomed the discussion. He said he still has some SI that it is not completely gone. 07/05 doing better, no SI; continue tx plan 07/07 start prazosin 2 mg p.o. q.h.s. and increase Tylenol up to 650 b.i.d. 07/09 increase prazosin up to 5 mg p.o. q.h.s. Reason for continued inpatient stay Substantial Risk for: inability to function, rapid decompensation and med/psych decompensation Time Spent With Patient Time: Total time managing care of this patient today __20__ minutes.
[2024-07-09 20:00] VITALS: BP 131/75; PULSE 88; RESP 18; TEMP 36.4; O2SAT 95
[2024-07-09] MEDS: QUEtiapine Fumarate 300 MG TABLET PO (20:41)
[2024-07-09] MEDS: Sennosides 8.6 MG TABLET 17.2 MG PO (20:41)
[2024-07-09] MEDS: clonazePAM 1 MG TABLET PO (20:42)
[2024-07-09] MEDS: Prazosin HCL 5 MG CAPSULE PO (20:42)
[2024-07-10] MEDS: Omeprazole 20 MG CAPSULE.DR PO (05:45)
[2024-07-10 08:00] VITALS: BP 121/60; PULSE 92; RESP 18; TEMP 36.1; O2SAT 93
[2024-07-10] MEDS: Brexpiprazole 1 MG TABLET 0.5 MG PO (08:39)
[2024-07-10] MEDS: Docusate Sodium 100 MG CAPSULE PO (08:39)
[2024-07-10] MEDS: Acetaminophen 325 MG TABLET 650 MG PO ×3 (08:40→21:03)
[2024-07-10] MEDS: Baclofen 10 MG TABLET 5 MG PO ×3 (08:40→21:03)
[2024-07-10] MEDS: Sodium Chloride Tab 1 GM TABLET PO ×3 (08:42→21:03)
--- NOTE | 2024-07-10 16:16 | HO.PSYCHPN ---
Subjective Subjective Date of Service: 07/10/24 Reason For Visit: Schizoaffective disorder Subjective Notes: Conditional Voluntary Interim History: The nursing staff reported the patient complained of auditory hallucinations that has been chronic. The licensed clinical social worker reported that we have a meeting about discharge planning. On interview the patient denies new symptoms, no improvement with increase of prazosin. Mental Status Exam Mental Status Exam Patient Appearance: Well Grooomed Patient Orientation: Person and Situation Level of Consciousness: Awake and Appropriate Patient Behavior: Guarded and Passive Mood Description: Withdrawn Affect Description: Constricted Patient Cognition Impaired: Yes Ability to Follow Directions: Good Speech Pattern: Clear Hallucinations: Auditory Delusions: Not Present Thought Process: Distracted and Slowed Thinking Thought Content: positive for [place] and positive for Poverty of Content Judgement: Fair Diagnostics Vital Signs (24Hr): Vital Signs - 24 hr 07/09/24 20:00 07/10/24 08:00 Temperature 97.5 F 97 F Pulse Rate 88 92 Respiratory Rate 18 18 Blood Pressure 131/75 121/60 Pulse Oximetry 95 93 Oxygen Delivery Method Room Air Room Air BMI result Body Mass Index 20.7 Labs 06/27/24 07:18 Imaging Radiology Impressions: ITS Impressions Shoulder X-Ray 07/02/24 09:20 IMPRESSION: Osteopenia. Severe osteoarthritis of the glenohumeral joint with findings suggestive of rotator cuff arthropathy. Electronically signed by: Dionicio Pacheco MD 07/03/2024 11:23 AM EDT RP Ribs X-Ray 07/03/24 09:20 IMPRESSION: No evidence of fracture of the left ribs. Electronically signed by: Dionicio Pacheco MD 07/03/2024 10:25 AM EDT RP Medications Medications Current Medications Acetaminophen (Acetaminophen 325 Mg Tablet) 650 mg PO Q4H PRN PRN Reason: Headache/Pain, Scale 1-10 Last Admin: 06/30/24 02:33 Dose: 650 mg Acetaminophen (Acetaminophen 325 Mg Tablet) 650 mg PO TID [facility] Last Admin: 07/10/24 14:43 Dose: 650 mg Al Hydroxide/Mg Hydroxide (Magnesium Hydrox/Alum Hydrox 30 Ml Oral.Susp) 30 ml PO Q6H PRN PRN Reason: Heartburn/Nausea Last Admin: 07/07/24 21:39 Dose: 30 ml Baclofen (Baclofen 10 Mg Tablet) 5 mg PO TID [facility] Last Admin: 07/10/24 14:42 Dose: 5 mg Brexpiprazole (Brexpiprazole 1 Mg Tablet) 0.5 mg PO DAILY [facility] Last Admin: 07/10/24 08:39 Dose: 0.5 mg Clonazepam (Clonazepam 0.5 Mg Tablet) 0.5 mg PO BEDTIME PRN PRN Reason: Insomnia Last Admin: 06/30/24 21:49 Dose: 0.5 mg Clonazepam (Clonazepam 1 Mg Tablet) 1 mg PO BEDTIME [facility] Last Admin: 07/09/24 20:42 Dose: 1 mg Docusate Sodium (Docusate Sodium 100 Mg Capsule) 100 mg PO BID [facility] Last Admin: 07/10/24 08:39 Dose: 100 mg Lidocaine (Lidocaine 5 % Ointment 35 Gm) 1 appl TOPICAL Q6H PRN; Protocol PRN Reason: L shoulder pain Magnesium Hydroxide (Milk Of Magnesia 30 Ml Oral.Susp) 30 ml PO DAILY PRN PRN Reason: Constipation Omeprazole (Omeprazole 20 Mg Capsule.Dr) 20 mg PO DAILY@0630 [facility] Last Admin: 07/10/24 05:45 Dose: 20 mg Prazosin HCl (Prazosin Hcl 5 Mg Capsule) 5 mg PO BEDTIME [facility]; Protocol Last Admin: 07/09/24 20:42 Dose: 5 mg Quetiapine Fumarate (Quetiapine Fumarate 300 Mg Tablet) 300 mg PO BEDTIME [facility] Last Admin: 07/09/24 20:41 Dose: 300 mg Senna (Sennosides 8.6 Mg Tablet) 17.2 mg PO BEDTIME [facility] Last Admin: 07/09/24 20:41 Dose: 17.2 mg Sodium Chloride (Sodium Chloride Tab 1 Gm Tablet) 1 gm PO TID [facility] Last Admin: 07/10/24 14:43 Dose: 1 gm Tranylcypromine Sulfate (Tranylcypromine Sulfate 10 Mg Tablet) 30 mg PO BID [facility] Last Admin: 07/10/24 08:42 Dose: 30 mg Trazodone HCl (Trazodone Hcl 50 Mg Tablet) 50 mg PO BEDTIME MRX1 PRN PRN Reason: Insomnia Last Admin: 07/05/24 21:24 Dose: 50 mg Allergies Allergies Allergy/AdvReac Type Severity Reaction Status Date / Time gabapentin Allergy side Verified 06/26/24 21:22 effect/sedation tyramine Allergy Hypertensio Uncoded 06/26/24 21:16 n Assessment & Plan Assessment & Plan (1) Major depression with psychotic features: Status: Acute Code(s): F32.3 - Major depressive disorder, single episode, severe with psychotic features (2) Pancytopenia: Status: Acute Code(s): D61.818 - Other pancytopenia (3) Atrial bigeminy: Status: Acute Code(s): I49.8 - Other specified cardiac arrhythmias (4) Gait disturbance: Status: Acute Code(s): R26.9 - Unspecified abnormalities of gait and mobility Plan Patient has a history chronic depression differential diagnosis would include major depression recurrent with psychotic features versus schizoaffective disorder. If patient had been taking dosage at home and I it appears Seroquel treatment was in adequate I would worry also about blood pressure and sedation effects. Trying get additional information from healthcare proxy outpatient psychiatrist see forget recent inpatient records. He is on [facility] instructed nursing he needs to be on an MAO diet allergies noted to gabapentin PT consult check B12 folate TSH physical reviewed case reviewed with Mary multiple chronic medical difficulties noted. Need to clarify if patient is normally his own decisionmaker. Patient might benefit from assisted living Consider Rexulti Vraylar for both antidepressant and antipsychotic augmentation 06/28: Lower Seroquel 200 mg at bedtime monitor response. Reviewed with pharmacy again necessity of obtaining [facility] patient lethargic and withdrawn. 06/29: per nursing report, parnate started today. c/o left shoulder and lumbar back pain, tylenol inadequate. MD agrees to increase tylenol regimen. wait staff to try to facilitate attendance at [facility] today. otherwise continue current mgmt. 06/30/24 Chronic use of clonazepam he was taking 1.5 mg will increase back to 1 mg Seroquel 300 mg at bedtime try and coordinate care and get additional history from outpatient psychiatrist at [facility] [place] and also see if we can get inpatient records start Rexulti 0.25 mg in the morning 07/01/24 start rexulti 0.5 monitor tolerance vital sx gait and intensity of psychosis 07/02/2024 Check shoulder x-ray and rib films patient with gait disturbance history of question spinal stenosis continue Rexulti monitor for side effects monitor response 07/03/24 Pt c/o LLQ pain sig shoulder pain on parnate limited pain options poor gait -some dec psychosis cont rexulti 0.5 also on seroquel hs 07/04 Patient reports that he was overall doing well today until he had a phone call with a friend who also has depression but said he was getting better. He said at that phone call he got jealous and his jealousy resulted in depression. Patient however willing to discuss this and accept that jealousy can be a normal human condition and he does not have to feel overly guilty about it but rather can forgive himself for being human. Patient said earlier today he was actually reading and writing about forgiving oneself and welcomed the discussion. He said he still has some SI that it is not completely gone. 07/05 doing better, no SI; continue tx plan 07/07 start prazosin 2 mg p.o. q.h.s. and increase Tylenol up to 650 b.i.d. 07/09 increase prazosin up to 5 mg p.o. q.h.s. 07/10 keep same treatment Reason for continued inpatient stay Substantial Risk for: inability to function, rapid decompensation and med/psych decompensation Time Spent With Patient Time: Total time managing care of this patient today _20___ minutes.
[2024-07-10 20:00] VITALS: BP 135/71; PULSE 64; RESP 18; TEMP 36.1; O2SAT 96
[2024-07-10] MEDS: Sennosides 8.6 MG TABLET 17.2 MG PO (21:03)
[2024-07-10] MEDS: clonazePAM 1 MG TABLET PO (21:03)
[2024-07-10] MEDS: Prazosin HCL 5 MG CAPSULE PO (21:03)
[2024-07-10] MEDS: QUEtiapine Fumarate 300 MG TABLET PO (21:03)
[2024-07-11] MEDS: Acetaminophen 325 MG TABLET 650 MG PO ×4 (03:57→21:15)
[2024-07-11] MEDS: Omeprazole 20 MG CAPSULE.DR PO (05:14)
[2024-07-11 08:00] VITALS: BP 141/67; PULSE 60; RESP 18; TEMP 36; O2SAT 93
[2024-07-11] MEDS: Docusate Sodium 100 MG CAPSULE PO (08:49)
[2024-07-11] MEDS: Brexpiprazole 1 MG TABLET 0.5 MG PO (08:49)
[2024-07-11] MEDS: Sodium Chloride Tab 1 GM TABLET PO ×3 (08:50→21:14)
[2024-07-11] MEDS: Baclofen 10 MG TABLET 5 MG PO ×3 (08:50→21:14)
--- NOTE | 2024-07-11 09:12 | HO.PSYCHPN ---
Subjective Subjective Date of Service: 07/11/24 Reason For Visit: Schizoaffective disorder Subjective Notes: Conditional Voluntary Healthcare Proxy: No Guardianship: No Medical Problems Affecting Mental Status: Yes (pain on left side effecting sleep = arthritis ) Interim History: 78 yo WM on phone ,gets off appropriately to talk with provider, using walker and has various papers notes and snacks on his walker. Tells provider didnt sleep well last pm due to side pain from arthritis- tylenol not making much effect- we discussed ? of naprosyn trial - Medication Compliance: Yes Side effects from medications: No Attending Groups: Intermittent Review of Systems Acute medical concerns: No Medical Review of Systems: unchanged Mental Status Exam Mental Status Exam Patient Appearance: Disheveled and Unkempt Patient Orientation: Person, Place, Time and Situation Level of Consciousness: Awake Patient Behavior: Cooperative Behavior Comments: nursing reports spending much time on phone talking to ? Mood Description: Calm Affect Description: Blunted Patient Cognition Impaired: No Ability to Follow Directions: Fair Speech Pattern: Clear Thought Process: Intact and Goal Oriented Depressive Symptoms: Difficulty Sleeping Judgement: Fair Diagnostics Vital Signs (24Hr): Vital Signs - 24 hr 07/10/24 20:00 Temperature 96.9 F Pulse Rate 64 Respiratory Rate 18 Blood Pressure 135/71 Pulse Oximetry 96 Oxygen Delivery Method Room Air BMI result Body Mass Index 20.7 Labs 06/27/24 07:18 Imaging Radiology Impressions: ITS Impressions Shoulder X-Ray 07/02/24 09:20 IMPRESSION: Osteopenia. Severe osteoarthritis of the glenohumeral joint with findings suggestive of rotator cuff arthropathy. Electronically signed by: Dionicio Pacheco MD 07/03/2024 11:23 AM EDT RP Ribs X-Ray 07/03/24 09:20 IMPRESSION: No evidence of fracture of the left ribs. Electronically signed by: Dionicio Pacheco MD 07/03/2024 10:25 AM EDT RP Medications Medications Current Medications Acetaminophen (Acetaminophen 325 Mg Tablet) 650 mg PO Q4H PRN PRN Reason: Headache/Pain, Scale 1-10 Last Admin: 07/11/24 03:57 Dose: 650 mg Acetaminophen (Acetaminophen 325 Mg Tablet) 650 mg PO TID [facility] Last Admin: 07/11/24 08:49 Dose: 650 mg Al Hydroxide/Mg Hydroxide (Magnesium Hydrox/Alum Hydrox 30 Ml Oral.Susp) 30 ml PO Q6H PRN PRN Reason: Heartburn/Nausea Last Admin: 07/07/24 21:39 Dose: 30 ml Baclofen (Baclofen 10 Mg Tablet) 5 mg PO TID [facility] Last Admin: 07/11/24 08:50 Dose: 5 mg Brexpiprazole (Brexpiprazole 1 Mg Tablet) 0.5 mg PO DAILY [facility] Last Admin: 07/11/24 08:49 Dose: 0.5 mg Clonazepam (Clonazepam 0.5 Mg Tablet) 0.5 mg PO BEDTIME PRN PRN Reason: Insomnia Last Admin: 06/30/24 21:49 Dose: 0.5 mg Clonazepam (Clonazepam 1 Mg Tablet) 1 mg PO BEDTIME [facility] Last Admin: 07/10/24 21:03 Dose: 1 mg Docusate Sodium (Docusate Sodium 100 Mg Capsule) 100 mg PO BID [facility] Last Admin: 07/11/24 08:49 Dose: 100 mg Lidocaine (Lidocaine 5 % Ointment 35 Gm) 1 appl TOPICAL Q6H PRN; Protocol PRN Reason: L shoulder pain Magnesium Hydroxide (Milk Of Magnesia 30 Ml Oral.Susp) 30 ml PO DAILY PRN PRN Reason: Constipation Omeprazole (Omeprazole 20 Mg Capsule.Dr) 20 mg PO DAILY@0630 [facility] Last Admin: 07/11/24 05:14 Dose: 20 mg Prazosin HCl (Prazosin Hcl 5 Mg Capsule) 5 mg PO BEDTIME [facility]; Protocol Last Admin: 07/10/24 21:03 Dose: 5 mg Quetiapine Fumarate (Quetiapine Fumarate 300 Mg Tablet) 300 mg PO BEDTIME [facility] Last Admin: 07/10/24 21:03 Dose: 300 mg Senna (Sennosides 8.6 Mg Tablet) 17.2 mg PO BEDTIME [facility] Last Admin: 07/10/24 21:03 Dose: 17.2 mg Sodium Chloride (Sodium Chloride Tab 1 Gm Tablet) 1 gm PO TID [facility] Last Admin: 07/11/24 08:50 Dose: 1 gm Tranylcypromine Sulfate (Tranylcypromine Sulfate 10 Mg Tablet) 30 mg PO BID [facility] Last Admin: 07/11/24 08:50 Dose: 30 mg Trazodone HCl (Trazodone Hcl 50 Mg Tablet) 50 mg PO BEDTIME MRX1 PRN PRN Reason: Insomnia Last Admin: 07/05/24 21:24 Dose: 50 mg Allergies Allergies Allergy/AdvReac Type Severity Reaction Status Date / Time gabapentin Allergy side Verified 06/26/24 21:22 effect/sedation tyramine Allergy Hypertensio Uncoded 06/26/24 21:16 n Assessment & Plan Assessment & Plan (1) Major depression with psychotic features: Status: Acute Code(s): F32.3 - Major depressive disorder, single episode, severe with psychotic features (2) Pancytopenia: Status: Acute Code(s): D61.818 - Other pancytopenia (3) Atrial bigeminy: Status: Acute Code(s): I49.8 - Other specified cardiac arrhythmias (4) Gait disturbance: Status: Acute Code(s): R26.9 - Unspecified abnormalities of gait and mobility Plan Patient has a history chronic depression differential diagnosis would include major depression recurrent with psychotic features versus schizoaffective disorder. If patient had been taking dosage at home and I it appears Seroquel treatment was in adequate I would worry also about blood pressure and sedation effects. Trying get additional information from healthcare proxy outpatient psychiatrist see forget recent inpatient records. He is on [facility] instructed nursing he needs to be on an MAO diet allergies noted to gabapentin PT consult check B12 folate TSH physical reviewed case reviewed with Mary multiple chronic medical difficulties noted. Need to clarify if patient is normally his own decisionmaker. Patient might benefit from assisted living Consider Rexulti Vraylar for both antidepressant and antipsychotic augmentation 06/28: Lower Seroquel 200 mg at bedtime monitor response. Reviewed with pharmacy again necessity of obtaining [facility] patient lethargic and withdrawn. 06/29: per nursing report, parnate started today. c/o left shoulder and lumbar back pain, tylenol inadequate. MD agrees to increase tylenol regimen. wait staff to try to facilitate attendance at [facility] today. otherwise continue current mgmt. 06/30/24 Chronic use of clonazepam he was taking 1.5 mg will increase back to 1 mg Seroquel 300 mg at bedtime try and coordinate care and get additional history from outpatient psychiatrist at [facility] and also see if we can get inpatient records start Rexulti 0.25 mg in the morning 07/01/24 start rexulti 0.5 monitor tolerance vital sx gait and intensity of psychosis 07/02/2024 Check shoulder x-ray and rib films patient with gait disturbance history of question spinal stenosis continue Rexulti monitor for side effects monitor response 07/03/24 Pt c/o LLQ pain sig shoulder pain on parnate limited pain options poor gait -some dec psychosis cont rexulti 0.5 also on seroquel hs 07/04 Patient reports that he was overall doing well today until he had a phone call with a friend who also has depression but said he was getting better. He said at that phone call he got jealous and his jealousy resulted in depression. Patient however willing to discuss this and accept that jealousy can be a normal human condition and he does not have to feel overly guilty about it but rather can forgive himself for being human. Patient said earlier today he was actually reading and writing about forgiving oneself and welcomed the discussion. He said he still has some SI that it is not completely gone. 07/05 doing better, no SI; continue tx plan 07/07 start prazosin 2 mg p.o. q.h.s. and increase Tylenol up to 650 b.i.d. 07/09 increase prazosin up to 5 mg p.o. q.h.s. 07/10 keep same treatment 07/11 still complaining of nightmares/intense dreams , discussed naprosyn trial for pain starting low dose with meals- Patient educated on: medication risk/benefits Informed Consent: understands Reason for continued inpatient stay Substantial Risk for: inability to function and rapid decompensation Time Spent With Patient Time: Total time managing care of this patient today ____ minutes.
[2024-07-11] MEDS: NaPROXEN 250 MG TABLET PO (17:29)
[2024-07-11 20:00] VITALS: BP 127/63; PULSE 54; RESP 16; TEMP 37; O2SAT 96
[2024-07-11 21:13] VITALS: BP 127/60
[2024-07-11] MEDS: Prazosin HCL 5 MG CAPSULE PO (21:13)
[2024-07-11] MEDS: clonazePAM 1 MG TABLET PO (21:14)
[2024-07-11] MEDS: QUEtiapine Fumarate 300 MG TABLET PO (21:14)
[2024-07-11] MEDS: Sennosides 8.6 MG TABLET 17.2 MG PO (21:14)
[2024-07-12] MEDS: Magnesium Hydrox/Alum Hydrox 30 ML ORAL.SUSP PO (04:49)
[2024-07-12] MEDS: Omeprazole 20 MG CAPSULE.DR PO (06:17)
[2024-07-12 08:00] VITALS: BP 121/71; PULSE 56; RESP 16; TEMP 36.6; O2SAT 92
[2024-07-12] MEDS: NaPROXEN 250 MG TABLET PO ×2 (08:31→17:17)
[2024-07-12] MEDS: Sodium Chloride Tab 1 GM TABLET PO ×3 (08:31→21:21)
[2024-07-12] MEDS: Brexpiprazole 1 MG TABLET 0.5 MG PO (08:32)
[2024-07-12] MEDS: Docusate Sodium 100 MG CAPSULE PO ×2 (08:32→21:21)
[2024-07-12] MEDS: Baclofen 10 MG TABLET 5 MG PO ×3 (08:33→21:22)
[2024-07-12] MEDS: Acetaminophen 325 MG TABLET 650 MG PO ×3 (08:33→21:20)
--- NOTE | 2024-07-12 10:38 | HO.PSYCHPN ---
Subjective Subjective Date of Service: 07/12/24 Reason For Visit: Schizoaffective disorder Subjective Notes: Conditional Voluntary Medical Problems Affecting Mental Status: No Interim History: 78 yo who reports going home Saturday- says naprosyn 250mg last pm helped pain but woke up with stomach issues-nausea took maalox- with good effect. Warned pt of risk of this med- will need to watch for that- Slept better was not suicidal or dep or anxious today until someone out in [facility] mentioned Felipe Harmon suicide- then he felt bad again- - Medication Compliance: Yes Side effects from medications: Yes (stomach/nausea from 250mg naprosyn) Attending Groups: Intermittent Review of Systems Acute medical concerns: No Medical Review of Systems: changed (as stated above) Mental Status Exam Mental Status Exam Patient Appearance: Unkempt Patient Orientation: Person, Place, Time and Situation Level of Consciousness: Awake Patient Behavior: Appropriate, Cooperative and Good Eye Contact Mood Description: Calm Affect Description: Appropriate Patient Cognition Impaired: No Ability to Follow Directions: Good Speech Pattern: Clear Hallucinations: None Thought Process: Intact and Goal Oriented Thought Content: positive for Intact Judgement: Fair Diagnostics Vital Signs (24Hr): Vital Signs - 24 hr 07/11/24 20:00 07/11/24 21:13 07/12/24 08:00 Temperature 98.6 F 98 F Pulse Rate 54 56 Respiratory Rate 16 16 Blood Pressure 127/63 127/60 121/71 Pulse Oximetry 96 92 Oxygen Delivery Method Room Air Room Air BMI result Body Mass Index 20.7 Labs 06/27/24 07:18 Imaging Radiology Impressions: ITS Impressions Shoulder X-Ray 07/02/24 09:20 IMPRESSION: Osteopenia. Severe osteoarthritis of the glenohumeral joint with findings suggestive of rotator cuff arthropathy. Electronically signed by: Dionicio Pacheco MD 07/03/2024 11:23 AM EDT RP Ribs X-Ray 07/03/24 09:20 IMPRESSION: No evidence of fracture of the left ribs. Electronically signed by: Dionicio Pacheco MD 07/03/2024 10:25 AM EDT RP Medications Medications Current Medications Acetaminophen (Acetaminophen 325 Mg Tablet) 650 mg PO Q4H PRN PRN Reason: Headache/Pain, Scale 1-10 Last Admin: 07/11/24 03:57 Dose: 650 mg Acetaminophen (Acetaminophen 325 Mg Tablet) 650 mg PO TID [facility] Last Admin: 07/12/24 08:33 Dose: 650 mg Al Hydroxide/Mg Hydroxide (Magnesium Hydrox/Alum Hydrox 30 Ml Oral.Susp) 30 ml PO Q6H PRN PRN Reason: Heartburn/Nausea Last Admin: 07/12/24 04:49 Dose: 30 ml Baclofen (Baclofen 10 Mg Tablet) 5 mg PO TID [facility] Last Admin: 07/12/24 08:33 Dose: 5 mg Brexpiprazole (Brexpiprazole 1 Mg Tablet) 0.5 mg PO DAILY [facility] Last Admin: 07/12/24 08:32 Dose: 0.5 mg Clonazepam (Clonazepam 1 Mg Tablet) 1 mg PO BEDTIME [facility] Last Admin: 07/11/24 21:14 Dose: 1 mg Clonazepam (Clonazepam 0.5 Mg Tablet) 0.5 mg PO BEDTIME PRN PRN Reason: Insomnia Docusate Sodium (Docusate Sodium 100 Mg Capsule) 100 mg PO BID [facility] Last Admin: 07/12/24 08:32 Dose: 100 mg Lidocaine (Lidocaine 5 % Ointment 35 Gm) 1 appl TOPICAL Q6H PRN; Protocol PRN Reason: L shoulder pain Magnesium Hydroxide (Milk Of Magnesia 30 Ml Oral.Susp) 30 ml PO DAILY PRN PRN Reason: Constipation Naproxen (Naproxen 250 Mg Tablet) 250 mg PO BIDWM [facility] Last Admin: 07/12/24 08:31 Dose: 250 mg Omeprazole (Omeprazole 20 Mg Capsule.Dr) 20 mg PO DAILY@0630 [facility] Last Admin: 07/12/24 06:17 Dose: 20 mg Prazosin HCl (Prazosin Hcl 5 Mg Capsule) 5 mg PO BEDTIME [facility]; Protocol Last Admin: 07/11/24 21:13 Dose: 5 mg Quetiapine Fumarate (Quetiapine Fumarate 300 Mg Tablet) 300 mg PO BEDTIME [facility] Last Admin: 07/11/24 21:14 Dose: 300 mg Senna (Sennosides 8.6 Mg Tablet) 17.2 mg PO BEDTIME [facility] Last Admin: 07/11/24 21:14 Dose: 8.6 mg Sodium Chloride (Sodium Chloride Tab 1 Gm Tablet) 1 gm PO TID [facility] Last Admin: 07/12/24 08:31 Dose: 1 gm Tranylcypromine Sulfate (Tranylcypromine Sulfate 10 Mg Tablet) 30 mg PO BID [facility] Last Admin: 07/12/24 08:34 Dose: 30 mg Trazodone HCl (Trazodone Hcl 50 Mg Tablet) 50 mg PO BEDTIME MRX1 PRN PRN Reason: Insomnia Last Admin: 07/05/24 21:24 Dose: 50 mg Allergies Allergies Allergy/AdvReac Type Severity Reaction Status Date / Time gabapentin Allergy side Verified 06/26/24 21:22 effect/sedation tyramine Allergy Hypertensio Uncoded 06/26/24 21:16 n Assessment & Plan Assessment & Plan (1) Major depression with psychotic features: Status: Acute Code(s): F32.3 - Major depressive disorder, single episode, severe with psychotic features (2) Pancytopenia: Status: Acute Code(s): D61.818 - Other pancytopenia (3) Atrial bigeminy: Status: Acute Code(s): I49.8 - Other specified cardiac arrhythmias (4) Gait disturbance: Status: Acute Code(s): R26.9 - Unspecified abnormalities of gait and mobility Plan Patient has a history chronic depression differential diagnosis would include major depression recurrent with psychotic features versus schizoaffective disorder. If patient had been taking dosage at home and I it appears Seroquel treatment was in adequate I would worry also about blood pressure and sedation effects. Trying get additional information from healthcare proxy outpatient psychiatrist see forget recent inpatient records. He is on [facility] instructed nursing he needs to be on an MAO diet allergies noted to gabapentin PT consult check B12 folate TSH physical reviewed case reviewed with Mary multiple chronic medical difficulties noted. Need to clarify if patient is normally his own decisionmaker. Patient might benefit from assisted living Consider Rogeloi Sahu for both antidepressant and antipsychotic augmentation 06/28: Lower Seroquel 200 mg at bedtime monitor response. Reviewed with pharmacy again necessity of obtaining [facility] patient lethargic and withdrawn. 06/29: per nursing report, parnate started today. c/o left shoulder and lumbar back pain, tylenol inadequate. MD agrees to increase tylenol regimen. catering staff member [facility]. otherwise continue current mgmt. 06/30/24 Chronic use of clonazepam he was taking 1.5 mg will increase back to 1 mg Seroquel 300 mg at bedtime try and coordinate care and get additional history from outpatient psychiatrist at [facility] and also see if we can get inpatient records start Rexulti 0.25 mg in the morning 07/01/24 start rexulti 0.5 monitor tolerance vital sx gait and intensity of psychosis 07/02/2024 Check shoulder x-ray and rib films patient with gait disturbance history of question spinal stenosis continue Rexulti monitor for side effects monitor response 07/03/24 Pt c/o LLQ pain sig shoulder pain on parnate limited pain options poor gait -some dec psychosis cont rexulti 0.5 also on seroquel hs 07/04 Patient reports that he was overall doing well today until he had a phone call with a friend who also has depression but said he was getting better. He said at that phone call he got jealous and his jealousy resulted in depression. Patient however willing to discuss this and accept that jealousy can be a normal human condition and he does not have to feel overly guilty about it but rather can forgive himself for being human. Patient said earlier today he was actually reading and writing about forgiving oneself and welcomed the discussion. He said he still has some SI that it is not completely gone. 07/05 doing better, no SI; continue tx plan 07/07 start prazosin 2 mg p.o. q.h.s. and increase Tylenol up to 650 b.i.d. 07/09 increase prazosin up to 5 mg p.o. q.h.s. 07/10 keep same treatment 07/11 still complaining of nightmares/intense dreams , discussed naprosyn trial for pain starting low dose with meals- 07/12 slept better, watch tolerance to naprosyn, less preoccupation with si, future oriented in that he is looking toward dc Patient educated on: medication risk/benefits Informed Consent: understands Reason for continued inpatient stay Substantial Risk for: inability to function and rapid decompensation Time Spent With Patient Time: Total time managing care of this patient today ____ minutes.
[2024-07-12 20:00] VITALS: BP 140/65; PULSE 59; RESP 16; TEMP 36.2; O2SAT 93
[2024-07-12] MEDS: clonazePAM 1 MG TABLET PO (21:21)
[2024-07-12] MEDS: QUEtiapine Fumarate 300 MG TABLET PO (21:21)
[2024-07-12] MEDS: Sennosides 8.6 MG TABLET 17.2 MG PO (21:22)
[2024-07-12] MEDS: Prazosin HCL 5 MG CAPSULE PO (21:23)
[2024-07-13] MEDS: Omeprazole 20 MG CAPSULE.DR PO (06:15)
[2024-07-13 08:00] VITALS: BP 113/54; PULSE 59; RESP 16; TEMP 36; O2SAT 96
[2024-07-13] MEDS: Sodium Chloride Tab 1 GM TABLET PO ×3 (08:15→20:31)
[2024-07-13] MEDS: Brexpiprazole 1 MG TABLET 0.5 MG PO (08:15)
[2024-07-13] MEDS: Baclofen 10 MG TABLET 5 MG PO ×3 (08:17→20:32)
[2024-07-13] MEDS: Docusate Sodium 100 MG CAPSULE PO ×2 (08:17→20:32)
[2024-07-13] MEDS: NaPROXEN 250 MG TABLET PO ×2 (08:21→17:17)
[2024-07-13] MEDS: Acetaminophen 325 MG TABLET 650 MG PO ×3 (08:21→20:32)
--- NOTE | 2024-07-13 14:27 | HO.PSYCHPN ---
Subjective Subjective Date of Service: 07/13/24 Reason For Visit: Schizoaffective disorder Subjective Notes: Conditional Voluntary Healthcare Proxy: Yes Interim History: Patient seen psychiatric follow-up case reviewed in treatment team. The patient's healthcare proxy called the unit stay the patient had been saying that his intrusive thoughts/ hallucinations regarding killing himself and killing others were stronger. The patient himself seems calm future oriented. He was scheduled for discharge tomorrow. The patient was started on Rexulti 0.5 mg has been on it approximately 10 days discussed with patient increasing to 1 mg daily. Risks benefits alternatives reviewed patient does breakthrough Seroquel Mental Status Exam Mental Status Exam Patient Appearance: Disheveled Patient Orientation: Person, Place, Time and Situation Level of Consciousness: Awake Patient Behavior: Appropriate, Cooperative and Good Eye Contact Mood Description: Calm and Flat Affect Description: Appropriate and Blunted Patient Cognition Impaired: No Ability to Follow Directions: Good Speech Pattern: Clear Hallucinations: None and Auditory ( intrusive thoughts regarding killing himself killing others will not elaborate) Delusions: Being Controlled Thought Process: Intact and Goal Oriented Thought Content: positive for Intact and negative for Suicidal Ideation Judgement: Fair Judgement and Insight: patient himself is suicidal intent or plan or homicidal intent or plan has intrusive thoughts/voices need try and help patient clarify whether this is more OCD type intrusive thoughts or more classic auditory hallucinations patient is very reticent to elaborate Diagnostics Vital Signs (24Hr): Vital Signs - 24 hr 07/12/24 20:00 07/13/24 08:00 Temperature 97.1 F 96.8 F Pulse Rate 59 59 Respiratory Rate 16 16 Blood Pressure 140/65 H 113/54 L Pulse Oximetry 93 96 Oxygen Delivery Method Room Air Room Air BMI result Body Mass Index 20.7 Labs 06/27/24 07:18 Imaging Radiology Impressions: ITS Impressions Shoulder X-Ray 07/02/24 09:20 IMPRESSION: Osteopenia. Severe osteoarthritis of the glenohumeral joint with findings suggestive of rotator cuff arthropathy. Electronically signed by: Dionicio Pacheco MD 07/03/2024 11:23 AM EDT Ribs X-Ray 07/03/24 09:20 IMPRESSION: No evidence of fracture of the left ribs. Electronically signed by: Dionicio Pacheco MD 07/03/2024 10:25 AM EDT Medications Medications Current Medications Acetaminophen (Acetaminophen 325 Mg Tablet) 650 mg PO Q4H PRN PRN Reason: Headache/Pain, Scale 1-10 Last Admin: 07/11/24 03:57 Dose: 650 mg Acetaminophen (Acetaminophen 325 Mg Tablet) 650 mg PO TID [facility] Last Admin: 07/13/24 08:21 Dose: 650 mg Al Hydroxide/Mg Hydroxide (Magnesium Hydrox/Alum Hydrox 30 Ml Oral.Susp) 30 ml PO Q6H PRN PRN Reason: Heartburn/Nausea Last Admin: 07/12/24 04:49 Dose: 30 ml Baclofen (Baclofen 10 Mg Tablet) 5 mg PO TID [facility] Last Admin: 07/13/24 08:17 Dose: 5 mg Brexpiprazole (Brexpiprazole 1 Mg Tablet) 0.5 mg PO DAILY [facility] Last Admin: 07/13/24 08:15 Dose: 0.5 mg Clonazepam (Clonazepam 1 Mg Tablet) 1 mg PO BEDTIME [facility] Last Admin: 07/12/24 21:21 Dose: 1 mg Clonazepam (Clonazepam 0.5 Mg Tablet) 0.5 mg PO BEDTIME PRN PRN Reason: Insomnia Docusate Sodium (Docusate Sodium 100 Mg Capsule) 100 mg PO BID [facility] Last Admin: 07/13/24 08:17 Dose: 100 mg Lidocaine (Lidocaine 5 % Ointment 35 Gm) 1 appl TOPICAL Q6H PRN; Protocol PRN Reason: L shoulder pain Magnesium Hydroxide (Milk Of Magnesia 30 Ml Oral.Susp) 30 ml PO DAILY PRN PRN Reason: Constipation Naproxen (Naproxen 250 Mg Tablet) 250 mg PO BIDWM [facility] Last Admin: 07/13/24 08:21 Dose: 250 mg Omeprazole (Omeprazole 20 Mg Capsule.Dr) 20 mg PO DAILY@0630 [facility] Last Admin: 07/13/24 06:15 Dose: 20 mg Prazosin HCl (Prazosin Hcl 5 Mg Capsule) 5 mg PO BEDTIME [facility]; Protocol Last Admin: 07/12/24 21:23 Dose: 5 mg Quetiapine Fumarate (Quetiapine Fumarate 300 Mg Tablet) 300 mg PO BEDTIME [facility] Last Admin: 07/12/24 21:21 Dose: 300 mg Senna (Sennosides 8.6 Mg Tablet) 17.2 mg PO BEDTIME [facility] Last Admin: 07/12/24 21:22 Dose: 17.2 mg Sodium Chloride (Sodium Chloride Tab 1 Gm Tablet) 1 gm PO TID [facility] Last Admin: 07/13/24 08:15 Dose: 1 gm Tranylcypromine Sulfate (Tranylcypromine Sulfate 10 Mg Tablet) 30 mg PO BID [facility] Last Admin: 07/13/24 08:16 Dose: 30 mg Allergies Allergies Allergy/AdvReac Type Severity Reaction Status Date / Time gabapentin Allergy side Verified 06/26/24 21:22 effect/sedation tyramine Allergy Hypertensio Uncoded 06/26/24 21:16 n Assessment & Plan Assessment & Plan (1) Major depression with psychotic features: Status: Acute Code(s): F32.3 - Major depressive disorder, single episode, severe with psychotic features (2) Pancytopenia: Status: Acute Code(s): D61.818 - Other pancytopenia (3) Atrial bigeminy: Status: Acute Code(s): I49.8 - Other specified cardiac arrhythmias (4) Gait disturbance: Status: Acute Code(s): R26.9 - Unspecified abnormalities of gait and mobility Plan Patient has a history chronic depression differential diagnosis would include major depression recurrent with psychotic features versus schizoaffective disorder. If patient had been taking dosage at home and I it appears Seroquel treatment was in adequate I would worry also about blood pressure and sedation effects. Trying get additional information from healthcare proxy outpatient psychiatrist see forget recent inpatient records. He is on [facility] instructed nursing he needs to be on an MAO diet allergies noted to gabapentin PT consult check B12 folate TSH physical reviewed case reviewed with Mary multiple chronic medical difficulties noted. Need to clarify if patient is normally his own decisionmaker. Patient might benefit from assisted living Consider [facility] Sahu for both antidepressant and antipsychotic augmentation 06/28: Lower Seroquel 200 mg at bedtime monitor response. Reviewed with pharmacy again necessity of obtaining [facility] patient lethargic and withdrawn. 06/29: per nursing report, parnate started today. c/o left shoulder and lumbar back pain, tylenol inadequate. MD agrees to increase tylenol regimen. medical staff credentialing coordinator to try to facilitate attendance at [facility] today. otherwise continue current mgmt. 06/30/24 Chronic use of clonazepam he was taking 1.5 mg will increase back to 1 mg Seroquel 300 mg at bedtime try and coordinate care and get additional history from outpatient psychiatrist at [facility] and also see if we can get inpatient records start Rexulti 0.25 mg in the morning 07/01/24 start rexulti 0.5 monitor tolerance vital sx gait and intensity of psychosis 07/02/2024 Check shoulder x-ray and rib films patient with gait disturbance history of question spinal stenosis continue Rexulti monitor for side effects monitor response 07/03/24 Pt c/o LLQ pain sig shoulder pain on parnate limited pain options poor gait -some dec psychosis cont rexulti 0.5 also on seroquel hs 07/04 Patient reports that he was overall doing well today until he had a phone call with a friend who also has depression but said he was getting better. He said at that phone call he got jealous and his jealousy resulted in depression. Patient however willing to discuss this and accept that jealousy can be a normal human condition and he does not have to feel overly guilty about it but rather can forgive himself for being human. Patient said earlier today he was actually reading and writing about forgiving oneself and welcomed the discussion. He said he still has some SI that it is not completely gone. 07/05 doing better, no SI; continue tx plan 07/07 start prazosin 2 mg p.o. q.h.s. and increase Tylenol up to 650 b.i.d. 07/09 increase prazosin up to 5 mg p.o. q.h.s. 07/10 keep same treatment 07/11 still complaining of nightmares/intense dreams , discussed naprosyn trial for pain starting low dose with meals- 07/12 slept better, watch tolerance to naprosyn, less preoccupation with si, future oriented in that he is looking toward dc 07/13/2024 patient seen psychiatric follow-up again had intrusive thoughts/ hallucinations of harm to self and others fearful of going home had called his healthcare proxy. Unclear any relationship to fear of returning home try and clarify psychotic symptoms versus more intrusive thoughts consistent with OCD. Encourage patient to be more forthcoming regarding his experience. Discussed increase of Rexulti to 1 mg risks benefits alternatives reviewed patient does have walker he has a chronic fall risk monitor response check EKG discharge re scheduled for . trazodone discontinued as patient is on [facility] Reason for continued inpatient stay Substantial Risk for: harm to self and rapid decompensation Time Spent With Patient Time: Total time managing care of this patient today ____ minutes.
[2024-07-13 20:29] VITALS: BP 127/58; PULSE 52; RESP 15; TEMP 36.1; O2SAT 96
[2024-07-13 20:31] VITALS: BP 127/58
[2024-07-13] MEDS: Prazosin HCL 5 MG CAPSULE PO (20:31)
[2024-07-13] MEDS: Sennosides 8.6 MG TABLET 17.2 MG PO (20:31)
[2024-07-13] MEDS: QUEtiapine Fumarate 300 MG TABLET PO (20:31)
[2024-07-13] MEDS: clonazePAM 1 MG TABLET PO (20:31)
[2024-07-14] MEDS: Omeprazole 20 MG CAPSULE.DR PO (05:36)
[2024-07-14 08:00] VITALS: BP 170/76; PULSE 55; RESP 16; TEMP 36.4; O2SAT 96
[2024-07-14] MEDS: Baclofen 10 MG TABLET 5 MG PO ×3 (08:32→21:05)
[2024-07-14] MEDS: Sodium Chloride Tab 1 GM TABLET PO ×3 (08:32→21:07)
[2024-07-14] MEDS: Docusate Sodium 100 MG CAPSULE PO ×2 (08:33→21:06)
[2024-07-14] MEDS: Brexpiprazole 1 MG TABLET PO (08:33)
[2024-07-14] MEDS: Acetaminophen 325 MG TABLET 650 MG PO ×3 (08:34→21:08)
[2024-07-14] MEDS: NaPROXEN 250 MG TABLET PO ×2 (08:37→17:20)
--- NOTE | 2024-07-14 11:21 | HO.PSYCHPN ---
Subjective Subjective Date of Service: 07/14/24 Reason For Visit: Schizoaffective disorder Subjective Notes: Conditional Voluntary Healthcare Proxy: Yes Interim History: Case reviewed with staff in treatment planning chart reviewed patient seen The patient seemed calm today and tolerating Rexulti increased to 1 mg Patient's sleep was okay has been eating he is engaged frequently on the phone. Medication Compliance: Yes Side effects from medications: No Attending Groups: Yes Mental Status Exam Mental Status Exam Patient Appearance: Disheveled Patient Orientation: Person, Place, Time and Situation Level of Consciousness: Awake Patient Behavior: Appropriate, Cooperative and Good Eye Contact Mood Description: Calm and Flat Affect Description: Appropriate and Blunted Patient Cognition Impaired: No Ability to Follow Directions: Good Speech Pattern: Clear Hallucinations: None Thought Process: Intact and Goal Oriented Thought Content: positive for Intact and negative for Suicidal Ideation Judgement: Fair Judgement and Insight: Intrusive thoughts/thoughts regarding hurting himself or hurting someone else he finds it very difficult to characterize these thoughts he states it is not something he wishes to do he states it has been part of his mentation for years denies active thoughts on his own self-harm or harming of but there is a level of fear Diagnostics Vital Signs (24Hr): Vital Signs - 24 hr 07/13/24 20:29 07/13/24 20:31 Temperature 96.9 F Pulse Rate 52 Respiratory Rate 15 Blood Pressure 127/58 L 127/58 L Pulse Oximetry 96 Oxygen Delivery Method Room Air BMI result Body Mass Index 20.7 Labs 06/27/24 07:18 Imaging Radiology Impressions: ITS Impressions Shoulder X-Ray 07/02/24 09:20 IMPRESSION: Osteopenia. Severe osteoarthritis of the glenohumeral joint with findings suggestive of rotator cuff arthropathy. Electronically signed by: Dionicio Pacheco MD 07/03/2024 11:23 AM EDT RP Ribs X-Ray 07/03/24 09:20 IMPRESSION: No evidence of fracture of the left ribs. Electronically signed by: Dionicio Pacheco MD 07/03/2024 10:25 AM EDT RP Medications Medications Current Medications Acetaminophen (Acetaminophen 325 Mg Tablet) 650 mg PO Q4H PRN PRN Reason: Headache/Pain, Scale 1-10 Last Admin: 07/11/24 03:57 Dose: 650 mg Acetaminophen (Acetaminophen 325 Mg Tablet) 650 mg PO TID [facility] Last Admin: 07/14/24 08:34 Dose: 650 mg Al Hydroxide/Mg Hydroxide (Magnesium Hydrox/Alum Hydrox 30 Ml Oral.Susp) 30 ml PO Q6H PRN PRN Reason: Heartburn/Nausea Last Admin: 07/12/24 04:49 Dose: 30 ml Baclofen (Baclofen 10 Mg Tablet) 5 mg PO TID [facility] Last Admin: 07/14/24 08:32 Dose: 5 mg Brexpiprazole (Brexpiprazole 1 Mg Tablet) 1 mg PO DAILY [facility] Last Admin: 07/14/24 08:33 Dose: 1 mg Clonazepam (Clonazepam 1 Mg Tablet) 1 mg PO BEDTIME [facility] Last Admin: 07/13/24 20:31 Dose: 1 mg Clonazepam (Clonazepam 0.5 Mg Tablet) 0.5 mg PO BEDTIME PRN PRN Reason: Insomnia Docusate Sodium (Docusate Sodium 100 Mg Capsule) 100 mg PO BID [facility] Last Admin: 07/14/24 08:33 Dose: 100 mg Lidocaine (Lidocaine 5 % Ointment 35 Gm) 1 appl TOPICAL Q6H PRN; Protocol PRN Reason: L shoulder pain Magnesium Hydroxide (Milk Of Magnesia 30 Ml Oral.Susp) 30 ml PO DAILY PRN PRN Reason: Constipation Naproxen (Naproxen 250 Mg Tablet) 250 mg PO BIDWM [facility] Last Admin: 07/14/24 08:37 Dose: 250 mg Omeprazole (Omeprazole 20 Mg Capsule.Dr) 20 mg PO DAILY@0630 [facility] Last Admin: 07/14/24 05:36 Dose: 20 mg Prazosin HCl (Prazosin Hcl 5 Mg Capsule) 5 mg PO BEDTIME [facility]; Protocol Last Admin: 07/13/24 20:31 Dose: 5 mg Quetiapine Fumarate (Quetiapine Fumarate 300 Mg Tablet) 300 mg PO BEDTIME [facility] Last Admin: 07/13/24 20:31 Dose: 300 mg Senna (Sennosides 8.6 Mg Tablet) 17.2 mg PO BEDTIME [facility] Last Admin: 07/13/24 20:31 Dose: 17.2 mg Sodium Chloride (Sodium Chloride Tab 1 Gm Tablet) 1 gm PO TID [facility] Last Admin: 07/14/24 08:32 Dose: 1 gm Tranylcypromine Sulfate (Tranylcypromine Sulfate 10 Mg Tablet) 30 mg PO BID [facility] Last Admin: 07/14/24 08:32 Dose: 30 mg Allergies Allergies Allergy/AdvReac Type Severity Reaction Status Date / Time gabapentin Allergy side Verified 06/26/24 21:22 effect/sedation tyramine Allergy Hypertensio Uncoded 06/26/24 21:16 n Assessment & Plan Assessment & Plan (1) Major depression with psychotic features: Status: Acute Code(s): F32.3 - Major depressive disorder, single episode, severe with psychotic features (2) Pancytopenia: Status: Acute Code(s): D61.818 - Other pancytopenia (3) Atrial bigeminy: Status: Acute Code(s): I49.8 - Other specified cardiac arrhythmias (4) Gait disturbance: Status: Acute Code(s): R26.9 - Unspecified abnormalities of gait and mobility Plan Patient has a history chronic depression differential diagnosis would include major depression recurrent with psychotic features versus schizoaffective disorder. If patient had been taking dosage at home and I it appears Seroquel treatment was in adequate I would worry also about blood pressure and sedation effects. Trying get additional information from healthcare proxy outpatient psychiatrist see forget recent inpatient records. He is on [facility] instructed nursing he needs to be on an MAO diet allergies noted to gabapentin PT consult check B12 folate TSH physical reviewed case reviewed with Mary multiple chronic medical difficulties noted. Need to clarify if patient is normally his own decisionmaker. Patient might benefit from assisted living Consider Rexulti Vraylar for both antidepressant and antipsychotic augmentation 06/28: Lower Seroquel 200 mg at bedtime monitor response. Reviewed with pharmacy again necessity of obtaining Parn[facility] patient lethargic and withdrawn. 06/29: per nursing report, parnate started today. c/o left shoulder and lumbar back pain, tylenol inadequate. MD agrees to increase tylenol regimen. staff scientist to try to facilitate attendance at [facility] today. otherwise continue current mgmt. 06/30/24 Chronic use of clonazepam he was taking 1.5 mg will increase back to 1 mg Seroquel 300 mg at bedtime try and coordinate care and get additional history from outpatient psychiatrist at [facility] or [facility] and also see if we can get inpatient records start Rexulti 0.25 mg in the morning 07/01/24 start rexulti 0.5 monitor tolerance vital sx gait and intensity of psychosis 07/02/2024 Check shoulder x-ray and rib films patient with gait disturbance history of question spinal stenosis continue Rexulti monitor for side effects monitor response 07/03/24 Pt c/o LLQ pain sig shoulder pain on parnate limited pain options poor gait -some dec psychosis cont rexulti 0.5 also on seroquel hs 07/04 Patient reports that he was overall doing well today until he had a phone call with a friend who also has depression but said he was getting better. He said at that phone call he got jealous and his jealousy resulted in depression. Patient however willing to discuss this and accept that jealousy can be a normal human condition and he does not have to feel overly guilty about it but rather can forgive himself for being human. Patient said earlier today he was actually reading and writing about forgiving oneself and welcomed the discussion. He said he still has some SI that it is not completely gone. 07/05 doing better, no SI; continue tx plan 07/07 start prazosin 2 mg p.o. q.h.s. and increase Tylenol up to 650 b.i.d. 07/09 increase prazosin up to 5 mg p.o. q.h.s. 07/10 keep same treatment 07/11 still complaining of nightmares/intense dreams , discussed naprosyn trial for pain starting low dose with meals- 07/12 slept better, watch tolerance to naprosyn, less preoccupation with si, future oriented in that he is looking toward dc 07/13/2024 patient seen psychiatric follow-up again had intrusive thoughts/ hallucinations of harm to self and others fearful of going home had called his healthcare proxy. Unclear any relationship to fear of returning home try and clarify psychotic symptoms versus more intrusive thoughts consistent with OCD. Encourage patient to be more forthcoming regarding his experience. Discussed increase of Rexulti to 1 mg risks benefits alternatives reviewed patient does have walker he has a chronic fall risk monitor response check EKG discharge re scheduled for . trazodone discontinued as patient is on [facility] for 07/14/2024 Patient seen psychiatric follow-up had some intrusive thoughts that were disturbing generally feels somewhat better tolerating medication denies active plan or intent to harm himself or others but there is a fear he does not it as hearing a voice or that his mind is being taken over but has intrusive thoughts although he is never acted to harm anyone. Agreeable to staying on Rexulti 1 mg Reason for continued inpatient stay Substantial Risk for: harm to self, inability to function and rapid decompensation Time Spent With Patient Time: Total time managing care of this patient today ____ minutes.
[2024-07-14] MEDS: QUEtiapine Fumarate 300 MG TABLET PO (21:06)
[2024-07-14] MEDS: Sennosides 8.6 MG TABLET 17.2 MG PO (21:09)
[2024-07-14] MEDS: clonazePAM 1 MG TABLET PO (21:09)
[2024-07-14] MEDS: Prazosin HCL 5 MG CAPSULE PO (21:10)
[2024-07-14 21:45] VITALS: BP 113/58; PULSE 50; RESP 18; TEMP 36.7; O2SAT 96
[2024-07-15] MEDS: Magnesium Hydrox/Alum Hydrox 30 ML ORAL.SUSP PO (03:43)
[2024-07-15] MEDS: Omeprazole 20 MG CAPSULE.DR PO (05:26)
--- NOTE | 2024-07-15 08:00 | ECG_ITS ---
Test Reason : ck qt Blood Pressure : */* mmHG Vent. Rate : 52 BPM Atrial Rate : 52 BPM P-R Int : 170 ms QRS Dur : 118 ms QT Int : 422 ms P-R-T Axes : 65 -51 46 degrees QTcB Int : 392 ms Sinus bradycardia Low voltage QRS Right bundle branch block Left anterior fascicular block Bifascicular block Abnormal ECG No previous ECGs available Referred By: Anthony Quintanilla Electronically Signed By: ELIE HARPER
--- NOTE | 2024-07-15 09:18 | P.PNPSI_ITS ---
Subjective Subjective Date of Service: 07/15/24 Reason For Visit: Schizoaffective disorder Subjective Notes: Conditional Voluntary Interim History: Pt seen in psych f/u mood has been flat anxious continues to ruminate at times no active harm to self or others tolerating 1 mg rexulti Medication Compliance: Yes Mental Status Exam Mental Status Exam Patient Appearance: Disheveled Patient Orientation: Person, Place, Time and Situation Level of Consciousness: Awake Patient Behavior: Appropriate, Cooperative and Good Eye Contact Mood Description: Calm and Flat Affect Description: Blunted and Apprehensive Patient Cognition Impaired: No Ability to Follow Directions: Good Speech Pattern: Clear Hallucinations: None Thought Process: Intact and Goal Oriented Thought Content: positive for Intact and negative for Suicidal Ideation Depressive Symptoms: Increased Anxiety Judgement: Fair Judgement and Insight: intrusive preoccupations Diagnostics Vital Signs (24Hr): Vital Signs - 24 hr 07/14/24 21:45 Temperature 98.1 F Pulse Rate 50 Respiratory Rate 18 Blood Pressure 113/58 L Pulse Oximetry 96 Oxygen Delivery Method Room Air BMI result Body Mass Index 20.7 Labs 06/27/24 07:18 Imaging Radiology Impressions: ITS Impressions Shoulder X-Ray 07/02/24 09:20 IMPRESSION: Osteopenia. Severe osteoarthritis of the glenohumeral joint with findings suggestive of rotator cuff arthropathy. Electronically signed by: Dionicio Pacheco MD 07/03/2024 11:23 AM EDT RP Ribs X-Ray 07/03/24 09:20 IMPRESSION: No evidence of fracture of the left ribs. Electronically signed by: Dionicio Pacheco MD 07/03/2024 10:25 AM EDT RP Medications Medications Current Medications Acetaminophen (Acetaminophen 325 Mg Tablet) 650 mg PO Q4H PRN PRN Reason: Headache/Pain, Scale 1-10 Last Admin: 07/11/24 03:57 Dose: 650 mg Acetaminophen (Acetaminophen 325 Mg Tablet) 650 mg PO TID [facility] Last Admin: 07/14/24 21:08 Dose: 650 mg Al Hydroxide/Mg Hydroxide (Magnesium Hydrox/Alum Hydrox 30 Ml Oral.Susp) 30 ml PO Q6H PRN PRN Reason: Heartburn/Nausea Last Admin: 07/15/24 03:43 Dose: 30 ml Baclofen (Baclofen 10 Mg Tablet) 5 mg PO TID [facility] Last Admin: 07/14/24 21:05 Dose: 5 mg Brexpiprazole (Brexpiprazole 1 Mg Tablet) 1 mg PO DAILY [facility] Last Admin: 07/14/24 08:33 Dose: 1 mg Clonazepam (Clonazepam 1 Mg Tablet) 1 mg PO BEDTIME [facility] Last Admin: 07/14/24 21:09 Dose: 1 mg Clonazepam (Clonazepam 0.5 Mg Tablet) 0.5 mg PO BEDTIME PRN PRN Reason: Insomnia Docusate Sodium (Docusate Sodium 100 Mg Capsule) 100 mg PO BID [facility] Last Admin: 07/14/24 21:06 Dose: 100 mg Lidocaine (Lidocaine 5 % Ointment 35 Gm) 1 appl TOPICAL Q6H PRN; Protocol PRN Reason: L shoulder pain Magnesium Hydroxide (Milk Of Magnesia 30 Ml Oral.Susp) 30 ml PO DAILY PRN PRN Reason: Constipation Naproxen (Naproxen 250 Mg Tablet) 250 mg PO BIDWM [facility] Last Admin: 07/14/24 17:20 Dose: 250 mg Omeprazole (Omeprazole 20 Mg Capsule.Dr) 20 mg PO DAILY@0630 [facility] Last Admin: 07/15/24 05:26 Dose: 20 mg Prazosin HCl (Prazosin Hcl 5 Mg Capsule) 5 mg PO BEDTIME [facility]; Protocol Last Admin: 07/14/24 21:10 Dose: 5 mg Quetiapine Fumarate (Quetiapine Fumarate 300 Mg Tablet) 300 mg PO BEDTIME [facility] Last Admin: 07/14/24 21:06 Dose: 300 mg Senna (Sennosides 8.6 Mg Tablet) 17.2 mg PO BEDTIME [facility] Last Admin: 07/14/24 21:09 Dose: 17.2 mg Sodium Chloride (Sodium Chloride Tab 1 Gm Tablet) 1 gm PO TID [facility] Last Admin: 07/14/24 21:07 Dose: 1 gm Tranylcypromine Sulfate (Tranylcypromine Sulfate 10 Mg Tablet) 30 mg PO BID [facility] Last Admin: 07/14/24 21:15 Dose: 30 mg Allergies Allergies Allergy/AdvReac Type Severity Reaction Status Date / Time gabapentin Allergy side Verified 06/26/24 21:22 effect/sedation tyramine Allergy Hypertensio Uncoded 06/26/24 21:16 n Assessment & Plan Assessment & Plan (1) Major depression with psychotic features: Status: Acute Code(s): F32.3 - Major depressive disorder, single episode, severe with psychotic features (2) Pancytopenia: Status: Acute Code(s): D61.818 - Other pancytopenia (3) Atrial bigeminy: Status: Acute Code(s): I49.8 - Other specified cardiac arrhythmias (4) Gait disturbance: Status: Acute Code(s): R26.9 - Unspecified abnormalities of gait and mobility Plan Patient has a history chronic depression differential diagnosis would include major depression recurrent with psychotic features versus schizoaffective disorder. If patient had been taking dosage at home and I it appears Seroquel treatment was in adequate I would worry also about blood pressure and sedation effects. Trying get additional information from healthcare proxy outpatient psychiatrist see forget recent inpatient records. He is on [facility] instructed nursing he needs to be on an MAO diet allergies noted to gabapentin PT consult check B12 folate TSH physical reviewed case reviewed with Mary multiple chronic medical difficulties noted. Need to clarify if patient is normally his own decisionmaker. Patient might benefit from assisted living Consider Rexulti Nathanlar for both antidepressant and antipsychotic augmentation 06/28: Lower Seroquel 200 mg at bedtime monitor response. Reviewed with pharmacy again necessity of obtaining P[facility] patient lethargic and withdrawn. 06/29: per nursing report, parnate started today. c/o left shoulder and lumbar back pain, tylenol inadequate. MD agrees to increase tylenol regimen. staff [employer] information [employer] officer to try to facilitate attendance at [facility] today. otherwise continue current mgmt. 06/30/24 Chronic use of clonazepam he was taking 1.5 mg will increase back to 1 mg Seroquel 300 mg at bedtime try and coordinate care and get additional history from outpatient psychiatrist at [facility] and also see if we can get inpatient records start Rexulti 0.25 mg in the morning 07/01/24 start rexulti 0.5 monitor tolerance vital sx gait and intensity of psychosis 07/02/2024 Check shoulder x-ray and rib films patient with gait disturbance history of question spinal stenosis continue Rexulti monitor for side effects monitor response 07/03/24 Pt c/o LLQ pain sig shoulder pain on parnate limited pain options poor gait - some dec psychosis cont rexulti 0.5 also on seroquel hs 07/04 Patient reports that he was overall doing well today until he had a phone call with a friend who also has depression but said he was getting better. He said at that phone call he got jealous and his jealousy resulted in depression. Patient however willing to discuss this and accept that jealousy can be a normal human condition and he does not have to feel overly guilty about it but rather can forgive himself for being human. Patient said earlier today he was actually reading and writing about forgiving oneself and welcomed the discussion. He said he still has some SI that it is not completely gone. 07/05 doing better, no SI; continue tx plan 07/07 start prazosin 2 mg p.o. q.h.s. and increase Tylenol up to 650 b.i.d. 07/09 increase prazosin up to 5 mg p.o. q.h.s. 07/10 keep same treatment 07/11 still complaining of nightmares/intense dreams , discussed naprosyn trial for pain starting low dose with meals- 07/12 slept better, watch tolerance to naprosyn, less preoccupation with si, future oriented in that he is looking toward dc 07/13/2024 patient seen psychiatric follow-up again had intrusive thoughts/ hallucinations of harm to self and others fearful of going home had called his healthcare proxy. Unclear any relationship to fear of returning home try and clarify psychotic symptoms versus more intrusive thoughts consistent with OCD. Encourage patient to be more forthcoming regarding his experience. Discussed increase of Rexulti to 1 mg risks benefits alternatives reviewed patient does have walker he has a chronic fall risk monitor response check EKG discharge re scheduled for . trazodone discontinued as patient is on [facility] for 07/14/2024 Patient seen psychiatric follow-up had some intrusive thoughts that were disturbing generally feels somewhat better tolerating medication denies active plan or intent to harm himself or others but there is a fear he does not it as hearing a voice or that his mind is being taken over but has intrusive thoughts although he is never acted to harm anyone. Agreeable to staying on Rexulti 1 mg Reason for continued inpatient stay Substantial Risk for: inability to function and rapid decompensation Time Spent With Patient Time: Total time managing care of this patient today 30____ minutes.
[2024-07-15 09:19] VITALS: BP 107/58; PULSE 57; RESP 16; TEMP 37.1; O2SAT 92
[2024-07-15] MEDS: Sodium Chloride Tab 1 GM TABLET PO ×3 (09:21→20:44)
[2024-07-15] MEDS: Acetaminophen 325 MG TABLET 650 MG PO ×3 (09:21→20:43)
[2024-07-15] MEDS: Baclofen 10 MG TABLET 5 MG PO ×3 (09:22→20:42)
[2024-07-15] MEDS: Docusate Sodium 100 MG CAPSULE PO ×2 (09:22→20:42)
[2024-07-15] MEDS: NaPROXEN 250 MG TABLET PO ×2 (09:22→19:03)
[2024-07-15] MEDS: Brexpiprazole 1 MG TABLET PO (09:23)
[2024-07-15 20:00] VITALS: BP 156/67; PULSE 82; RESP 18; TEMP 36.2; O2SAT 97
[2024-07-15] MEDS: Prazosin HCL 1 MG CAPSULE 2 MG PO (20:42)
[2024-07-15] MEDS: clonazePAM 1 MG TABLET PO (20:42)
[2024-07-15] MEDS: QUEtiapine Fumarate 300 MG TABLET PO (20:43)
[2024-07-15] MEDS: Sennosides 8.6 MG TABLET 17.2 MG PO (20:43)
[2024-07-16] MEDS: clonazePAM 0.5 MG TABLET PO (03:27)
[2024-07-16] MEDS: Omeprazole 20 MG CAPSULE.DR PO (05:12)
[2024-07-16 07:55] VITALS: BP 134/60; PULSE 60; RESP 18; TEMP 36.3; O2SAT 97
[2024-07-16] MEDS: Acetaminophen 325 MG TABLET 650 MG PO (08:13)
[2024-07-16] MEDS: Sodium Chloride Tab 1 GM TABLET PO (08:13)
[2024-07-16] MEDS: NaPROXEN 250 MG TABLET PO (08:14)
[2024-07-16] MEDS: Baclofen 10 MG TABLET 5 MG PO (08:14)
[2024-07-16] MEDS: Docusate Sodium 100 MG CAPSULE PO (08:14)
[2024-07-16] MEDS: Brexpiprazole 1 MG TABLET PO (08:14)
--- NOTE | 2024-07-16 22:49 | P.DS_ITS ---
DS: Providers Provider Date of Service: 06/27/24 Date of admission: 06/26/24 20:04 Date of discharge: 07/15/24 Primary care physician: Oziel Carrington MD Admitting clinician: Anthony Quintanilla Consults: Hospitalist Consult Note Signed Patient: Cody Funez MR#: [id number] : 1945 Acct:[id number] Age/Sex: 78 / M Loc: [facility] 180-[address]: Dick Melgoza MD cc: Mary Spence~ History of Present Illness Data of Consult Service Date: 06/27/24 Requesting physician: Georgia Serrano Primary Care Provider: Oziel MCKEON Reason for consult: medical H&P 78-year-old male with history of overactive bladder, insomnia, osteoporosis, chronic pancytopenia, kyphoscoliosis and scoliosis, spondylosis of the thoracic region, lumbar and sacral osteoarthritis, unsteady gait ambulating with a walker at baseline, schizoaffective disorder bipolar type, constipation, protein calorie malnutrition, lumbar spondylosis, CKD stage 3, GERD, hypercholesterolemia, iron-deficiency anemia due to chronic blood loss, prediabetes, vitamin-D deficiency, intraductal papillary mucinous neoplasm, history of GI bleed 11/2023, malignant neoplastic disease admitted to [facility]ry from [facility] with consult placed hospitalist service for medical H&P. While in the ED, hematology studies revealed a macrocytic anemia with H/H 10.1/32.2% with MCV 101.9, platelets 147, WBC 3.13. Renal function consistent with CKD stage 3, electrolyte levels within normal limits, glucose 122. Hepatic function within normal limits, protein slightly low at 5.9. Ethyl alcohol level undetectable. Troponin undetectable. EKG shows sinus bradycardia rate 51, incomplete RBBB,PACs bigeminy pattern. Vital signs shows a chronic bradycardia with stable blood pressures. He denies alcohol use or cigarette smoking. Denies any illicit drug use. He is reporting chronic L shoulder pain which he reports requires replacement in the future. The pain radiates to his hand. No weakness of paresthesias. He is using baclofen amd tylenol at home. He is also reporting pain in the LUQ ongoing for weeks. No fevers, chills, n/v/d. He also reports chronic tingling in the R fingertips. He has chronic low back pain and severe kyphoscoliosis. He reports he was told he needs open back surgery. Review of Systems Review of Systems: Constitutional - Awake and Alert, No apparent distress Eyes - PERRLA, EOMI Cardiovascular - S1S2, RRR, No edema Respiratory - Normal lung expansion, Normal respiratory effort, No respiratory distress, CTA bilaterally Gastrointestinal - NT / ND; +BS; No rebound or guarding - No CVA tenderness Extremities - no calf tenderness bilaterally, no swelling Musculoskeletal - see hpi Skin - Warm/Dry Neurological - Alert & oriented x3, CN II-XII in tact, / strength BUE and BLE Psychological - Appropriate affect PMFSH Social History Household Members: None Housing: Apartment Do you presently have visiting nurse or other home services: Yes Patient Tobacco Use Status: Never used Tobacco Use of substances other than those prescribed or required for medical reasons: No Have you been hit, kicked, punched, or otherwise hurt by someone within the past year? If so, by whom?: No Spiritual Healthcare Practices: meditate, pray, sing and walk Advance Directives: No Advance Directives Information Provided: No Do you have a plan to hurt others: No Plan Recently lost weight without trying: No Nutrition Risks: No Nutritional Risk Meds Allergies Allergy/AdvReac Type Severity Reaction Status Date / Time gabapentin Allergy side Verified 06/26/24 21:22 effect/sedation tyramine Allergy Hypertensio Uncoded 06/26/24 21:16 n Active Medications: Current Medications Acetaminophen (Acetaminophen 325 Mg Tablet) 650 mg PO Q6H PRN PRN Reason: Headache/Pain, Scale 1-10 Last Admin: 06/26/24 23:33 Dose: 650 mg Al Hydroxide/Mg Hydroxide (Magnesium Hydrox/Alum Hydrox 30 Ml Oral.Susp) 30 ml PO Q6H PRN PRN Reason: Heartburn/Nausea Baclofen (Baclofen 10 Mg Tablet) 5 mg PO TID [facility] Last Admin: 06/27/24 09:43 Dose: 5 mg Clonazepam (Clonazepam 1 Mg Tablet) 1 mg PO BEDTIME [facility] Last Admin: 06/26/24 23:32 Dose: 1 mg Magnesium Hydroxide (Milk Of Magnesia 30 Ml Oral.Susp) 30 ml PO DAILY PRN PRN Reason: Constipation Non-Formulary Medication (Tranylcypromine) 30 mg PO BID [facility] Omeprazole (Omeprazole 20 Mg Capsule.Dr) 20 mg PO DAILY@0630 [facility] Last Admin: 06/27/24 06:30 Dose: 20 mg Quetiapine Fumarate (Quetiapine Fumarate 300 Mg Tablet) 300 mg PO BEDTIME [facility] Last Admin: 06/26/24 23:32 Dose: 300 mg Senna (Sennosides 8.6 Mg Tablet) 17.2 mg PO BEDTIME [facility] Last Admin: 06/26/24 23:39 Dose: Not Given Sodium Chloride (Sodium Chloride Tab 1 Gm Tablet) 1 gm PO TID [facility] Last Admin: 06/27/24 09:44 Dose: 1 gm Trazodone HCl (Trazodone Hcl 50 Mg Tablet) 50 mg PO BEDTIME MRX1 PRN PRN Reason: Insomnia Home Medications Medication Instructions Recorded Confirmed Last Taken Type acetaminophen 500 mg tablet 1,000 mg PO TID 06/26/24 06/26/24 Unknown History baclofen 5 mg tablet 5 mg PO TID 06/26/24 06/26/24 Unknown History clonazepam 1 mg tablet 1 mg PO BEDTIME 06/26/24 06/26/24 Unknown History pantoprazole 40 mg tablet,delayed 40 mg PO DAILY 06/26/24 06/26/24 Unknown History release quetiapine 300 mg tablet 300 mg PO BEDTIME 06/26/24 06/26/24 Unknown History quetiapine 50 mg tablet (Seroquel) 50 mg PO 06/26/24 Unknown History sennosides 8.6 mg tablet (senna) 17.2 mg PO BEDTIME 06/26/24 06/26/24 Unknown History sodium chloride 1,000 mg soluble 1,000 mg PO TID 06/26/24 06/26/24 Unknown History tablet tranylcypromine 10 mg tablet 30 mg PO BID 06/26/24 06/26/24 Unknown History Physical Exam Vital Signs and Narrative: Vital Signs: Last Vital Signs Temp 96.8 F 06/27/24 08:57 Pulse 53 06/27/24 08:57 Resp 17 06/27/24 08:57 BP 137/63 06/27/24 08:57 Pulse Ox 97 06/27/24 08:57 O2 Del Method Room Air 06/27/24 08:57 BMI result Body Mass Index 20.2 Constitutional - Awake and Alert, No apparent distress Eyes - PERRLA, EOMI Cardiovascular - S1S2, RRR, No edema Respiratory - Normal lung expansion, Normal respiratory effort, No respiratory distress, CTA bilaterally Gastrointestinal - LUQ ttp without guarding or rebound, ND; +BS - No CVA tenderness Extremities - no calf tenderness bilaterally, no swelling Musculoskeletal - severe kyphoscoliosis Skin - Warm/Dry Neurological - Alert & oriented x3, CN II-XII in tact, 4/5 strength BUE and BLE Psychological - flat affect Results Labs 06/27/24 07:18 document embedded image Labs: Laboratory Results - last 24 hr 06/27/24 07:18 Anion Gap 9 L Estim Creat Clear Calc 51.4 Estimated GFR > 60 Fasting Glucose 101 H Calcium 8.6 Total Bilirubin 0.3 AST 27 ALT 21 Alkaline Phosphatase 61 Total Protein 5.7 L Albumin 3.2 L Triglycerides 58 Cholesterol 154 LDL Cholesterol, Calc 86 HDL Cholesterol 57 Assessment and Plan (1) Routine medical exam: Status: Acute Plan 78-year-old male with history of overactive bladder, insomnia, osteoporosis, chronic pancytopenia, kyphoscoliosis and scoliosis, spondylosis of the thoracic region, lumbar and sacral osteoarthritis, unsteady gait ambulating with a walker at baseline, schizoaffective disorder bipolar type, constipation, protein calorie malnutrition, lumbar spondylosis, CKD stage 3, GERD, hypercholesterolemia, iron-deficiency anemia due to chronic blood loss, prediabetes, vitamin-D deficiency, intraductal papillary mucinous neoplasm, history of GI bleed 11/2023, malignant neoplastic disease admitted to Geriatric Psychiatry from [facility] with consult placed hospitalist service for medical H&P. #schizoaffective disorder bipolar type -plan per psychiatry #Chronic L shoulder pain -tylenol. baclofen. Add lidocaine ointment #LUQ pain -KUB shows moderate to severe stool burden tranverse and descending colon -continue senna. Add docusate. Milk of Mag p.r.n. -increase water intake #Chronic bradycardia w/ PACs in bigeminy -bp stable, asymptomatic -continue monitoring VS -outpt follow up with cardiology # chronic thoracic/low back pain -see assessment -pain management with tylenol, baclofen, lidocaine ointment # protein calorie malnutrition -recommend nutrition consult # CKD stage 3 # renal function baseline # chronic thrombocytopenia with macrocytic anemia -recommend checking vitamin B12 and folic acid levels # prediabetes -recommend checking hemoglobin A1c #IPMN -outpt follow up Thank you for allowing me to participate in this consult. Signing off at this time. Please do not hesitate to call for further questions. 06/26/24 21:19 Consult to Hospitalist Routine Comment: Consulting Provider: [facility] Reason For Exam: new admit, h&p 07/03/24 15:59 Consult to Hospitalist Routine Comment: Consulting Provider: [facility] Reason For Exam: c/o llq abd pain worsening 07/03/24 21:26 Consult to Orthopedics Routine Consulting Provider: [facility] Reason for consultation: severe l shoulder pain ? recommendations Has provider been notified: No Attending physician on discharge: Anthony Quintanilla Discharging clinician: Anthony Quintanilla DS: Diagnosis Discharge Diagnosis (1) Major depression with psychotic features: Status: Acute (2) Pancytopenia: Status: Acute (3) Gait disturbance: Status: Acute (4) Sinus bradycardia by electrocardiogram: Status: Acute DS: Medications Discharge Medications Home Medications: Previous Rx's ?Medication ?Instructions ?Recorded acetaminophen 325 mg tablet 650 mg (2 x 325 mg) PO Q4H PRN 07/10/24 Headache/Pain, Scale 1-10 #30 tabs acetaminophen 500 mg tablet 1,000 mg (2 x 500 mg) PO TID #90 07/10/24 tabs baclofen 5 mg tablet 5 mg PO TID 30 days #90 tabs 07/10/24 clonazepam 1 mg tablet 1 mg PO BEDTIME 30 days #30 tabs 07/10/24 lidocaine 5 % topical ointment 1 appl topical Q6H PRN L shoulder 07/10/24 pain 30 days #5 grams pantoprazole 40 mg tablet,delayed 40 mg PO DAILY 30 days #30 tabs 07/10/24 release quetiapine 300 mg tablet 300 mg PO BEDTIME #30 tabs 07/10/24 sennosides 8.6 mg tablet (senna) 17.2 mg (2 x 8.6 mg) PO BEDTIME 07/10/24 #60 tabs sodium chloride 1,000 mg soluble 1,000 mg PO TID 30 days #90 tabs 07/10/24 tablet tranylcypromine 10 mg tablet 30 mg (3 x 10 mg) PO BID 30 days 07/10/24 #180 tabs baclofen 10 mg tablet 5 mg (1/2 x 10 mg) PO TID 30 days 07/15/24 #0 tabs brexpiprazole 1 mg tablet (Rexulti) 1 mg PO DAILY 30 days #30 tabs 07/15/24 clonazepam 1 mg tablet 1 mg PO BEDTIME 30 days #0 tabs 07/15/24 prazosin 1 mg capsule 2 mg PO BEDTIME 30 days #60 caps 07/15/24 quetiapine 300 mg tablet 300 mg PO BEDTIME 30 days #30 tabs 07/15/24 tranylcypromine 10 mg tablet 30 mg (3 x 10 mg) PO BID 30 days 07/15/24 #0 tabs Mental Status Exam Mental Status Exam Narrative: Patient did not seem overly depressed at time of discharge denied suicidal or homicidal intent or plan no longer was having intrusive thoughts that somehow he was guilty for not saving someone during the Holocaust. There did appear to be a well of magical thinking patient was resident to discuss. On the unit the patient was social engaged cooperative pleasant with others and seem to have a much denis range of motion Patient Appearance: Disheveled Patient Orientation: Person, Place, Time and Situation Level of Consciousness: Awake Patient Behavior: Appropriate, Cooperative and Good Eye Contact Mood Description: Calm and Flat Affect Description: Blunted Patient Cognition Impaired: No Ability to Follow Directions: Good Speech Pattern: Clear Hallucinations: None Thought Process: Intact and Goal Oriented Thought Content: positive for Intact and negative for Suicidal Ideation Depressive Symptoms: Increased Anxiety Judgement and Insight: intrusive preoccupations which seem less intrusive no active thoughts of harm to self or others Patient use a walker complained of intermittent shoulder pain was alert cooperative able to take in information regarding assisted living he did seem to do better with people around Data Data Completed and Pending Completed studies during hospitalization [Text1]: RUN: 07/17/24 1537 PAGE 1 [facility] [address] [place] [id number] Automated Equipment Engineer Technician: Javier Parsons M.D. Specimen Inquiry Name: Cody Funez Age/Sex: 78/M : 1945 Unit#: [id number] Attend Dr: Melvin Li MD Re06/26/24 Status: DIS IN Location: [facility] 180-2 Disch: 07/16/24 SPEC : [id number] HANNAH: 06/27/24 STATUS: COMP REQ : [id number] RECD: 06/27/24-[address]: Georgia Serrano NP COMP: 06/27/24 ENTERED: 06/27/24-[address]: Dick Melgoza MD, [employer] ORDERED: CMP Fast, Lipid Panel Test Result Flag Reference Sodium 142 135-145 mmol/L Potassium 4.3 3.3-5.1 mmol/L CL 112 H 96-108 mmol/L CO2 25 22-29 mmol/L Gap 9 L 12-20 BUN 32 H 9-16 mg/dL Creat 0.92 0.5-1.4 mg/dL Estimated CrCl 51.4 eGFR (calculated from the MDRD study equation) and eCrCl (calculated from the Cockcroft-Gault equation) are based on different parameters and may not yield comparable results. If eCrCl result is absurd, please check patient's height/weight. eGFR > 60 Chronic Kidney Disease: Estimated GFR < 60 mL/min/1.73m2 Severe Kidney Disease: Estimated GFR < 15 mL/min/1.73m2 FBS 101 H 60-99 mg/dL A fasting glucose from 100-125 mg/dl is considered impaired (pre-diabetes). CA 8.6 8.4-10.2 mg/dL Total Bili 0.3 0.0-1.0 mg/dL AST (GOT) 27 5-37 U/L ALT (GPT) 21 0-40 U/L Protein, Total 5.7 L 6.5-8.0 g/dL Alb 3.2 L 3.5-5.0 g/dL Triglyceride 58 <150 mg/dL Desirable Triglyceride: less than 150 mg/dL Borderline High Triglyceride 150-199 mg/dL High Triglyceride: 200-499 mg/dL Very High Triglyceride: greater than or equal to 5OO mg/dL Cholesterol 154 <200 mg/dL Desirable Cholesterol: less than 200 mg/dL Borderline High Cholesterol: 200-239 mg/dL High Cholesterol: greater than 239 mg/dL LDL Calculated 86 <100 mg/dL Desirable LDL: less than 100 mg/dL Near Optimal/Above Optimal LDL: 110-129 mg/dL Borderline High LDL: 130-159 mg/dL High LDL: 160-189 mg/dL Very High LDL: greater than or equal to 190 mg/dL HDL 57 >40 mg/dL Desirable HDL: greater than 40 mg/dL Note: This HDL assay may give artificially low results in patients with liver disease. Alk Phos 61 39-117 U/L Imaging Diagnostic Imaging Impressions Shoulder X-Ray 07/02/24 09:20 IMPRESSION: Osteopenia. Severe osteoarthritis of the glenohumeral joint with findings suggestive of rotator cuff arthropathy. Electronically signed by: Dionicio Pacheco MD 07/03/2024 11:23 AM EDT RP Ribs X-Ray 07/03/24 09:20 IMPRESSION: No evidence of fracture of the left ribs. Electronically signed by: Dionicio Pacheco MD 07/03/2024 10:25 AM EDT RP Cardiology Testing Electrocardiograph Report Signed Patient: Cody Funez MR#: [id number] : 1945 Acct:[id number] Age/Sex: 78 / M ADM Date: 06/26/24 Loc: [facility] 180-[address]: Melvin Li MD Ordering Physician: Anthony Quintanilla MD Date of Service: 07/15/24 Procedure(s): ECG 12 lead EKG Accession Number(s): [id number] cc: Anthony Quintanilla MD~ Test Reason : ck qt Blood Pressure : */* mmHG Vent. Rate : 52 BPM Atrial Rate : 52 BPM P-R Int : 170 ms QRS Dur : 118 ms QT Int : 422 ms P-R-T Axes : 65 -51 46 degrees QTcB Int : 392 ms Sinus bradycardia Low voltage QRS Right bundle branch block Left anterior fascicular block Bifascicular block Abnormal ECG No previous ECGs available Referred By: Anthony Quintanilla Electronically Signed By: YOSHI HARPER Dictated By: Yoshi Harper MD Signed By: <Electronically signed by Yoshi Harper MD in OV> 07/15/241921 DD/ 1 TD/TT: 07/15/241921 Casey Saw Operator: Prior EKG in the emergency room also had showed sinus bradycardia DS: Summary Hospital Course Hospital Course: [facility] Admission Note (In) Signed Patient: Cody Funez MR#: [id number] : 1945 Acct:[id number] Age/Sex: 78 / M Loc: [facility] 180-[address]: Dick Melgoza MD cc: Anthony Quintanilla MD~ HPI Date of Service: 06/27/24 Chief Complaint: Schizoaffective disorder Sources of Information: patient interviewed, chart reviewed and crisis/core team assessment reviewed HPI Healthcare Proxy: Yes Narrative: The patient was seen and evaluated at 11:00 case reviewed with pharmacy to try and get the patient's [facility]. The patient is a 78-year-old male lives alone in [facility] referred from the emergency room after a psychiatric evaluation. The patient apparently had been talking with a friend and was talking about having intrusive thoughts of wanting to harm himself and possibly others. The patient had been psychiatrically hospitalized up until couple of weeks ago. Patient was having intrusive thoughts that he deserve to be punished and that God wanted him . There are reportedly chronic auditory hallucinations he has been on Seroquel 300 mg clonazepam 1 mg nightly Protonix 40 mg daily reportedly Seroquel 50 mg in the morning. Patient states the only other med that I being on was Abilify and he has been on [facility] apparently for many years. Past Psychiatric History: The patient has a long psychiatric history starting in the s he is somewhat poor historian he has been hospitalized number of times there is a history a suicide attempt in the past details not able to be el ucidated. He does not remember any other psychiatric medication for hallucinations intrusive thoughts besides Seroquel on Abilify Medical Evaluation Reviewed: Yes [facility] Medical History (Updated 06/27/24 @ 23:24 by Anthony uQintanilla MD) Major depression with psychotic features Narrative: Patient has multiple medical problems gait disturbance anemia, bradycardia, spinal and shoulder difficulties, reported recent GI bleed, atrial bigeminy, pancytopenia. Status post recent falls history of meningioma history of vitamin-D deficiency history of malnutrition Social History: The patient lives alone he does have a healthcare proxy not no children no history of alcohol or substance abuse in the past he had worked social work and other positions he does have 1 sibling Substance History: none Trauma History: Unable to assess Diagnostics Vital Signs (24Hr): Vital Signs - 24 hr 06/26/24 20:40 06/27/24 08:57 Temperature 98.4 F 96.8 F Pulse Rate 55 53 Respiratory Rate 16 17 Blood Pressure 154/70 H 137/63 Pulse Oximetry 95 97 Oxygen Delivery Method Room Air Room Air BMI result Body Mass Index 20.2 Labs 06/27/24 07:18 document embedded image Labs: Laboratory Results - last 48 hr 06/27/24 07:18 Sodium 142 Potassium 4.3 Chloride 112 H Carbon Dioxide 25 Anion Gap 9 L BUN 32 H Creatinine 0.92 Estim Creat Clear Calc 51.4 Estimated GFR > 60 Fasting Glucose 101 H Calcium 8.6 Total Bilirubin 0.3 AST 27 ALT 21 Alkaline Phosphatase 61 Total Protein 5.7 L Albumin 3.2 L Triglycerides 58 Cholesterol 154 LDL Cholesterol, Calc 86 HDL Cholesterol 57 EKG EKG Comment: Bradycardia atrial bigeminy Meds/Allergies Meds Home Medications Medication Instructions Recorded Confirmed Type acetaminophen 500 mg tablet 1,000 mg PO TID 06/26/24 06/26/24 History baclofen 5 mg tablet 5 mg PO TID 06/26/24 06/26/24 History clonazepam 1 mg tablet 1 mg PO BEDTIME 06/26/24 06/26/24 History pantoprazole 40 mg tablet,delayed 40 mg PO DAILY 06/26/24 06/26/24 History release quetiapine 300 mg tablet 300 mg PO BEDTIME 06/26/24 06/26/24 History quetiapine 50 mg tablet (Seroquel) 50 mg PO 06/26/24 History sennosides 8.6 mg tablet (senna) 17.2 mg PO BEDTIME 06/26/24 06/26/24 History sodium chloride 1,000 mg soluble 1,000 mg PO TID 06/26/24 06/26/24 History tablet tranylcypromine 10 mg tablet 30 mg PO BID 06/26/24 06/26/24 History Allergies Allergies Allergy/AdvReac Type Severity Reaction Status Date / Time gabapentin Allergy side Verified 06/26/24 21:22 effect/sedation tyramine Allergy Hypertensio Uncoded 06/26/24 21:16 n Mental Status Exam Mental Status Exam Narrative: Mental Status Exam Narrative: Appearance: Somewhat disheveled older male sad looking Behavior: Cooperative psychomotor: Some psychomotor retardation Speech: Speech somewhat slowed but clear Thought proccess logical somewhat halting Thought content: Content is on these intrusive thoughts that he feels at times God wants him and has thoughts to kill himself denies plan or intent in this setting vague thoughts of being told to harm others and question delusional guilt patient guarded would not elaborate further Mood: Depressed Affect: Constricted SI: Denies currently HI:denies VH/AH: Intrusive thoughts at times telling him that he is done something terrible Delusions: Question of delusional guilt Insight/judgment: Limited Memory/cog: Assessment & Plan Assessment & Plan (1) Major depression with psychotic features: Status: Acute Code(s): F32.3 - Major depressive disorder, single episode, severe with psychotic features (2) Pancytopenia: Status: Acute Code(s): D61.818 - Other pancytopenia (3) Atrial bigeminy: Status: Acute Code(s): I49.8 - Other specified cardiac arrhythmias (4) Gait disturbance: Status: Acute Code(s): R26.9 - Unspecified abnormalities of gait and mobility Plan Patient has a history chronic depression differential diagnosis would include major depression recurrent with psychotic features versus schizoaffective disorder. If patient had been taking dosage at home and I it appears Seroquel treatment was in adequate I would worry also about blood pressure and sedation effects. Trying get additional information from healthcare proxy outpatient psychiatrist see forget recent inpatient records. He is on [facility] instructed nursing he needs to be on an MAO diet allergies noted to gabapentin PT consult check B12 folate TSH physical reviewed case reviewed with [facility] multiple chronic medical difficulties noted. Need to clarify if patient is normally his own decisionmaker. Patient might benefit from assisted living Consider [facility] for both antidepressant and antipsychotic augmentation Patient educated on: diagnosis, medication risk/benefits and medical condition Informed Consent: further education needed Reason for continued inpatient stay Substantial Risk for: harm to self, harm to others, rapid decompensation and med/psych decompensation Statement Statement: I have reviewed the history and physical and performed a pertinent examination on my patient. No changes have occurred unless specified. If the History and Physical was not performed prior to admission, the Hospitalist's service will be consulted for completing the admission physical. Time Spent With Patient Time: Total time managing care of this patient today ____ minutes. Dictated By: Anthony Quintanilla MD Signed By: <Electronically signed by Anthony Quintanilla MD> 06/27/24 2882 HOSPITAL COURSE THE [facility]IENT [facility] unit at [facility] on a conditional voluntary. The patie nt had recently been treated on a psychiatric unit had been discharged on [facility] Seroquel and clonazepam and was having ongoing intrusive thoughts that he had somehow been responsible for someone during the Holocaust being killed who he could have saved. The patient does not describe symptoms as hallucinations but intrusive thoughts that or at times making him fearful intrusive thoughts of hurting others at times although no specific person or hurting himself or killing himself. The patient was on 1.5 mg clonazepam 300 mg of Seroquel he was walking with a walker and does have significant spinal degeneration and did try lowering clonazepam and Seroquel which the patient did not tolerate became quite agitated with intrusive thoughts and so quell was raised back to 300 mg clonazepam was kept at 1 mg instead of 1.5 mg he did not see seem overly sedated during the day did trend discuss long-term risks of chronic clonazepam use regarding fall risk and dementia risks. The patient was somewhat guarded and defended regarding full discussion of these intrusive thoughts he had had psychiatric symptoms since the 1970s and eventually had responded to [facility]. It is unclear how long he has had intrusive thoughts versus hallucinations and tried to tease out whether this was more in OCD intrusive thought versus an outside entity that he thought it was communicating to him. He did say these were his thoughts and I did discuss with him this could be seen also as part of a psychotic depression it was difficult to tease out with the patient whether or not he has had clear hallucinations. Because of the patient's ongoing symptoms we did start Rexulti 0.5 mg daily for the treatment of initially delusional preoccupation intrusive thoughts/hallucinations and also augmentation of treatment for depression. And this was eventually increased to 1 mg. We had set in initial discharge date but the patient had felt that the intensity of intrusive thoughts including of harming himself or someone else was too intense and at that time Rexulti was increased to 1 mg with the patient did appear to tolerate. Patient's hemoglobin A1c was 5.7 EKG showed conduction delay right bundle sinus bradycardia which appeared relatively unchanged from prior EKG in the emergency room. Patient denied history of cardiac involvement did recommend follow-up cardiology appointment. Patient did have some degree of chronic pain from the shoulder and also at times from his side rib x-rays were unremarkable this pain appears to be chronic would consider recommendation to pain management Strongly urged the patient to think of intrusive thoughts as thoughts and try to get some distance from them these did not appear to be commands and patient was able to resist the thoughts and not act on these. We did recommend patient strongly consider assisted living he has a chronic fall risk. Continue [facility] Seroquel at HS which I would recommend to try and taper down over time if he was going to stay on Rexulti patient does have PCP appointment he would benefit from visiting nurse or some kind of daily engagement if at all possible Status at Discharge Functional status at discharge: uses cane/walker Overall status at discharge: patient is progressing back to baseline Time Spent with Patient Time attestation: Total time managing care of this patient today _40___ minutes. 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 Please contact your top case assembler Cristy with any questions or concerns at [phone]) SERGE Farrell [Other] - 1 Week (Patient reports he will set up his own therapy appointment due to therapist being on leave currently. ) Oziel Carrington MD [Primary Care Provider] - 1 Week (Contacted your PCP's office and the nurse will contact you after discharge to provide you with your appointment date and time. [facility] appt follow up within 7-10 days of discharge. ) Discharge Medications: New acetaminophen 325 mg Tablet 650 mg PO Q4H PRN (Reason: Headache/Pain, Scale 1-10) Qty: 30 0RF quetiapine 300 mg Tablet 300 mg PO BEDTIME Qty: 30 0RF lidocaine 5 % Ointment 1 appl topical Q6H PRN (Reason: L shoulder pain) 30 Days Qty: 5 0RF Protocol: Apply to: Apply to: L shoulder baclofen 10 mg Tablet 5 mg PO TID 30 Days Qty: 0 1RF prazosin 1 mg Capsule 2 mg PO BEDTIME 30 Days Qty: 60 1RF Protocol: Hold for SBP< HOLD for SBP < : 90 Rexulti 1 mg Tablet 1 mg PO DAILY 30 Days Qty: 30 1RF clonazepam 1 mg Tablet 1 mg PO BEDTIME 30 Days Qty: 0 1RF quetiapine 300 mg tablet 300 mg PO BEDTIME 30 Days Qty: 30 1RF tranylcypromine 10 mg Tablet 30 mg PO BID 30 Days Qty: 0 1RF Continued sennosides [senna] 8.6 mg tablet 17.2 mg PO BEDTIME Qty: 60 0RF tranylcypromine 10 mg tablet 30 mg PO BID 30 Days Qty: 180 0RF clonazepam 1 mg tablet 1 mg PO BEDTIME 30 Days Qty: 30 0RF acetaminophen 500 mg tablet 1,000 mg PO TID Qty: 90 0RF pantoprazole 40 mg tablet,delayed release (DR/EC) 40 mg PO DAILY 30 Days Qty: 30 0RF sodium chloride 1,000 mg tablet,soluble 1,000 mg PO TID 30 Days Qty: 90 0RF baclofen 5 mg tablet 5 mg PO TID 30 Days Qty: 90 0RF Discontinued quetiapine 300 mg tablet 300 mg PO BEDTIME quetiapine [Seroquel] 50 mg tablet 50 mg PO Rx Instructions: per pt's HCP, he may take 25mg tab TID Discharge Orders: Discharge Order (Routine); Ordered 07/16/24 Ordered By: Anthony Quintanilla Diet: Advance to usual diet Activity on Discharge: Use cane or walker Stand Alone Forms: Patient Portal Discharge page Print Language: Unable To Collect Care Plan Goals: stabilize mood and intrusive thoughts no self harm or harm to others f/u with pcp for medical concerns stabilize living situation Health Concerns: gait disturbance cardiac rhythm abnormality bradycardia pancytopenia Plan of Treatment: medication continue parnate started on rexulti for mood and intrusive thoughts consider lowering klonapin seroquel over time can inc fall risk call 978 crisis line go to er if feeling unsafe remember thoughts are thoughts you dont have to follow them Would benefit in addition from Psychiatry from psychotherapy to help manage intrusive thoughts maoi diet Assessment: denis affect less distressed has concerns regarding chronic intrusive thoughts at times of harm to self or others which he does not act on he is future oriented Discharge Date/Time: 07/16/24 14:15
== END 2024-07-16 14:15 | disposition home or self-care (01) | DRG 885 ==
PROVIDERS: Physician Assistant; Psychiatry & Neurology Psychiatry; Registered Nurse; Admitting Provider Psychiatry & Neurology Psychiatry; PCP Internal Medicine Geriatric Medicine; Visit Provider Psychiatry & Neurology Psychiatry
DX: F32.3 Major depressive disorder, single episode, severe with psychotic features (principal); D61.818 Other pancytopenia; E46 Unspecified protein-calorie malnutrition; R45.851 Suicidal ideations; M25.512 Pain in left shoulder; G89.29 Other chronic pain; M54.59 Other low back pain; N18.30 Chronic kidney disease, stage 3 unspecified; K59.00 Constipation, unspecified; Z68.20 Body mass index [BMI] 20.0-20.9, adult; R73.03 Prediabetes; M19.012 Primary osteoarthritis, left shoulder; R26.9 Unspecified abnormalities of gait and mobility; I49.1 Atrial premature depolarization; R00.1 Bradycardia, unspecified; D49.0 Neoplasm of unspecified behavior of digestive system; Z79.899 Other long term (current) drug therapy
CPT/HCPCS: 36415; 71100; 73030; 74018; 80053; 80061; 82306; 82607; 82746; 83036; 84443; 93005; 97110; 97112; 97161

== ENCOUNTER 2024-06-26 20:04 | Outpatient (BNV) | payer MEDICARE, OTHER, SELFPAY | END 2024-07-15 08:00 | PROVIDERS: Admitting Provider Psychiatry & Neurology Psychiatry; PCP Internal Medicine Geriatric Medicine; Visit Provider Internal Medicine | DX: I45.2 Bifascicular block (principal) | CPT/HCPCS: 93010 ==

== ENCOUNTER 2024-06-26 20:04 | Outpatient (BNV) | payer MEDICARE, OTHER, SELFPAY | END 2024-07-02 09:20 | PROVIDERS: Admitting Provider Psychiatry & Neurology Psychiatry; PCP Internal Medicine Geriatric Medicine; Visit Provider Radiology Diagnostic Radiology | DX: M19.012 Primary osteoarthritis, left shoulder (principal); M85.812 Other specified disorders of bone density and structure, left shoulder | CPT/HCPCS: 73030 ==

== ENCOUNTER 2024-06-26 20:04 | Outpatient (BNV) | payer MEDICARE, OTHER, SELFPAY | END 2024-06-27 15:20 | PROVIDERS: Admitting Provider Psychiatry & Neurology Psychiatry; Visit Provider Radiology Diagnostic Radiology | DX: R10.12 Left upper quadrant pain (principal) | CPT/HCPCS: 74018 ==

== ENCOUNTER → 2024-06-26 20:04 | Outpatient (BNV) | payer MEDICARE, OTHER, SELFPAY | PROVIDERS: Admitting Provider Psychiatry & Neurology Psychiatry; PCP Internal Medicine Geriatric Medicine; Visit Provider Psychiatry & Neurology Psychiatry | DX: F32.3 Major depressive disorder, single episode, severe with psychotic features (principal); D61.818 Other pancytopenia; I49.8 Other specified cardiac arrhythmias; R26.9 Unspecified abnormalities of gait and mobility | CPT/HCPCS: 99231; 99232 ==

== ENCOUNTER → 2024-06-26 20:04 | Outpatient (BNV) | payer MEDICARE, OTHER, SELFPAY | PROVIDERS: Admitting Provider Psychiatry & Neurology Psychiatry; Visit Provider Physician Assistant | DX: R10.12 Left upper quadrant pain (principal); M54.50 Low back pain, unspecified; M25.511 Pain in right shoulder | CPT/HCPCS: 99222; 99499 ==

== ENCOUNTER → 2024-06-26 20:04 | Outpatient (BNV) | payer MEDICARE, OTHER, SELFPAY | PROVIDERS: Admitting Provider Psychiatry & Neurology Psychiatry; Visit Provider Psychiatry & Neurology Psychiatry | DX: F32.3 Major depressive disorder, single episode, severe with psychotic features (principal); D61.818 Other pancytopenia; I49.8 Other specified cardiac arrhythmias; R26.9 Unspecified abnormalities of gait and mobility | CPT/HCPCS: 90792; 99232 ==